=== PATIENT | male | born 1960 | race Hispanic/Latino ===

== ENCOUNTER 2016-11-24 13:19 | Emergency (ER) | payer OTHER ==
[2016-11-24 13:20] VITALS: PULSE 95
[2016-11-24 13:25] VITALS: BMI 42.2
[2016-11-24 13:31] VITALS: BP 157/81; PULSE 106; RESP 18; TEMP 98.7; O2SAT 98
--- NOTE | 2016-11-24 13:55 | ED PDOC ---
Arrival/HPI - General Chief Complaint: Trauma Time Seen by Provider: 11/24/16 13:22 Historian: Patient - History of Present Illness Time/Duration: Prior to Arrival Symptom Onset: Sudden Symptom Course: Improving Severity Level: Mild Associated Symptoms (Text): 11/24/16 13:52 Patient reports that he was at a [employer] and he bent over to package pick up some 4 x 4's and he hit the top of his head on a metal post. There was no loss of consciousness syncope dizziness lightheadedness numbness tingling or paresthesias. No nausea or vomiting. The patient is on Pradaxa and aspirin. He suffered a small abrasion on the top of his head. He insists that he had tetanus immunization at his [facility] office within the last year or 2. He denies any other injury or trauma.. Past Medical History - Infectious Disease Hx of Infectious Diseases: None - Tetanus Immunization Tetanus Immunization: Unknown - Cardiac Hx Cardiac Disorders: Yes Hx Atrial Fibrillation: Yes Hx Congestive Heart Failure: Yes Hx Hypertension: Yes - Pulmonary Hx Respiratory Disorders: Yes Hx Sleep Apnea: Yes - Neurological Hx Neurological Disorder: Yes Other/Comment: tremors - HEENT Hx HEENT Disorder: Yes Other/Comment: glasses - Renal Hx Renal Failure: Yes (ARF 11/2014) - Endocrine/Metabolic Hx Diabetes Mellitus Type 2: Yes - Hematological/Oncological Hx Blood Disorders: No - Integumentary Hx Dermatological Disorder: No Other/Comment: cellulitis on sudhir lower ext. Chronic venous insufficiency ( previous triage) - Musculoskeletal/Rheumatological Hx Falls: No - Gastrointestinal Hx Gastroesophageal Reflux: Yes - Genitourinary/Gynecological Hx Genitourinary Disorders: No - Psychiatric Hx Psychophysiologic Disorder: Yes Hx Anxiety: Yes Hx Substance Use: No - Surgical History Hx Appendectomy: Yes Hx Cardiac Catheterization: Yes (04/2014) Hx Coronary Stent: Yes - Anesthesia Hx Anesthesia: Yes Hx Anesthesia Reactions: No Hx Malignant Hyperthermia: No - Suicidal Assessment Feels Threatened In Home Enviroment: No Family/Social History - Physician Review Nursing Documentation Reviewed: Yes Family/Social History: Unknown Family HX Smoking Status: Former Smoker Hx Alcohol Use: Yes (6 pack beer /daily) Hx Substance Use: No Hx Substance Use Treatment: No Allergies/Home Meds Allergies/Adverse Reactions: Allergies No Known Allergies Allergy (Verified 11/24/16 13:21) Home Medications: Home Meds Medication Instructions Recorded Confirmed ALPRAZolam [Xanax] 1 tab PO BID PRN 09/17/16 11/24/16 Albuterol HFA [Ventolin HFA 90 1 puff IH BID PRN 09/17/16 11/24/16 mcg/actuation (8 g)] Atenolol [Tenormin] 1 tab PO DAILY 09/17/16 11/24/16 Furosemide [Lasix] 1 tab PO BID 09/17/16 11/24/16 Oxycodone HCl/Acetaminophen 1 tab PO Q4H PRN 09/17/16 11/24/16 [Percocet 10-325 mg Tablet] Potassium Chloride [Klor-Con] 1 tab PO DAILY 09/17/16 11/24/16 diltiaZEM CD [Cardizem CD] 1 tab PO DAILY 09/17/16 11/24/16 metOLazone [Zaroxolyn] 1 tab PO 2XW 09/17/16 11/24/16 Review of Systems - Physician Review All systems were reviewed & negative as marked: Yes - Review of Systems Constitutional: absent: Fatigue, Fevers Gastrointestinal: absent: Nausea, Vomiting Neurological: absent: Headache, Dizziness, Focal Weakness, Gait Changes Physical Exam Vital Signs Temp Pulse Resp BP Pulse Ox 11/24/16 13:30 98.7 F 106 H 18 157/81 H 98 Temperature: Afebrile Blood Pressure: Hypertensive Pulse: Regular Respiratory Rate: Normal Appearance: Positive for: Well-Appearing, Non-Toxic, Comfortable Pain Distress: None Mental Status: Positive for: Alert and Oriented X 3 Finger Stick Blood Glucose: 131 - Systems Exam Head: Present: Normocephalic, Abrasion (Superficial abrasion on the top of his scalp). No: Tenderness, Contusion, Swelling, Ecchymosis, Laceration Pupils: Present: PERRL Extroacular Muscles: Present: EOMI Conjunctiva: Present: Normal Ears: Present: NORMAL TM, Normal Canal. No: Erythema Mouth: Present: Moist Mucous Membranes Pharnyx: No: ERYTHEMA, EXUDATE, TONSILS ENLARGED Neck: Present: Normal Range of Motion. No: MIDLINE TENDERNESS, Paraspinal Tenderness Back: Present: Normal Inspection. No: Midline Tenderness, Paraspinal Tenderness Upper Extremity: Present: Normal Inspection. No: Cyanosis, Edema Lower Extremity: Present: Normal Inspection. No: Edema Neurological: Present: GCS=15, Motor Func Grossly Intact, Normal Cerebellar Funct, Gait Normal Skin: Present: Warm, Dry, Normal Color, Abrasion. No: Rashes Psychiatric: Present: Alert, Oriented x 3, Normal Insight, Normal Concentration Medical Decision Making - RAD Interpretation Radiology Orders: 11/24/16 13:31 HEAD W/O CONTRAST [CT] Stat CT scan of the head as read by the radiologist shows no acute findings Director Zone: Radiologist Disposition/Present on Arrival - Present on Arrival Any Indicators Present on Arrival: No History of DVT/PE: No History of Uncontrolled Diabetes: No Urinary Catheter: No History of Decub. Ulcer: No History Surgical Site Infection Following: None - Disposition Have Diagnosis and Disposition been Completed?: Yes Diagnosis: Head contusion, Abrasion Disposition: HOME/ ROUTINE Disposition Time: 14:35 Patient Plan: Discharge Patient Problems: Current Active Problems Problem Status Diagnosed Acute renal failure (ARF) Acute Foot ulcer due to secondary DM Acute Condition: GOOD Discharge Instructions (ExitCare): Abrasion (ED), Head Injury (ED)
--- NOTE | 2016-11-24 14:30 | CT ---
PROCEDURE: CT HEAD WITHOUT CONTRAST. HISTORY: trauma COMPARISON: None available. TECHNIQUE: Axial computed tomography images were obtained through the head/brain without intravenous contrast. Radiation dose: Total exam DLP = 822 mGy-cm. This CT exam was performed using one or more of the following dose reduction techniques: Automated exposure control, adjustment of the mA and/or kV according to patient size, and/or use of iterative reconstruction technique. FINDINGS: HEMORRHAGE: No intracranial hemorrhage. BRAIN: No mass effect or edema. Chronic microvascular changes are seen VENTRICLES: Unremarkable. No hydrocephalus. CALVARIUM: Unremarkable. PARANASAL SINUSES: Unremarkable as visualized. No significant inflammatory changes. MASTOID AIR CELLS: Unremarkable as visualized. No inflammatory changes. OTHER FINDINGS: None. IMPRESSION: No acute intracranial findings
== END 2016-11-24 15:36 | disposition home or self-care (01) ==
LOC: ED 13:19
DX: S00.93XA Contusion of unspecified part of head, initial encounter (principal); W22.09XA Striking against other stationary object, initial encounter; Y93.89 Activity, other specified; Y92.512 Supermarket, store or market as the place of occurrence of the external cause; E11.9 Type 2 diabetes mellitus without complications; I10 Essential (primary) hypertension; Z87.891 Personal history of nicotine dependence

== ENCOUNTER 2016-12-17 01:33 | Inpatient (IN) | payer OTHER ==
[2016-12-17 01:33] VITALS: PULSE 95
--- NOTE | 2016-12-17 02:01 | ED PDOC ---
Arrival/HPI - General Chief Complaint: Shortness Of Breath Time Seen by Provider: 12/17/16 01:37 Historian: Patient - History of Present Illness Narrative History of Present Illness (Text): 12/17/16 01:55 Mark Doan is a 56 year old male, whose past medical history includes diabetes, diabetic neuropathy, paroxysmal atrial fibrillation, CAD, chronic venous stasis, and obstructive sleep apnea, who presents to the emergency department complaining of shortness of breath for 30 minutes prior to arrival. Patient also reports associated chest pain. Patient denies any fever, chills, abdominal pain, nausea, vomiting, diarrhea, urinary symptoms, back pain, neck pain, headache, dizziness, or any other complaints. PMD: Dr. Lien Leiva Time/Duration: 1/2 hour Symptom Onset: Gradual Symptom Course: Unchanged Activities at Onset: Rest, Light Context: Home Past Medical History - Provider Review Nursing Documentation Reviewed: Yes - Infectious Disease Hx of Infectious Diseases: None - Tetanus Immunization Tetanus Immunization: Unknown - Cardiac Hx Cardiac Disorders: Yes Hx Atrial Fibrillation: Yes Hx Congestive Heart Failure: Yes Hx Hypertension: Yes - Pulmonary Hx Respiratory Disorders: Yes Hx Sleep Apnea: Yes - Neurological Hx Neurological Disorder: Yes Other/Comment: tremors - HEENT Hx HEENT Disorder: Yes Other/Comment: glasses - Renal Hx Renal Failure: Yes (ARF 11/2014) - Endocrine/Metabolic Hx Diabetes Mellitus Type 2: Yes - Hematological/Oncological Hx Blood Disorders: No - Integumentary Hx Dermatological Disorder: No Other/Comment: cellulitis on sudhir lower ext. Chronic venous insufficiency ( previous triage) - Musculoskeletal/Rheumatological Hx Falls: No - Gastrointestinal Hx Gastroesophageal Reflux: Yes - Genitourinary/Gynecological Hx Genitourinary Disorders: No - Psychiatric Hx Psychophysiologic Disorder: Yes Hx Anxiety: Yes Hx Substance Use: No - Surgical History Hx Appendectomy: Yes Hx Cardiac Catheterization: Yes (04/2014) Hx Coronary Stent: Yes - Anesthesia Hx Anesthesia: Yes Hx Anesthesia Reactions: No Hx Malignant Hyperthermia: No - Suicidal Assessment Feels Threatened In Home Enviroment: No Family/Social History - Physician Review Nursing Documentation Reviewed: Yes Family/Social History: No Known Family HX Smoking Status: Former Smoker Hx Alcohol Use: Yes (6 pack beer /daily) Hx Substance Use: No Hx Substance Use Treatment: No Allergies/Home Meds Allergies/Adverse Reactions: Allergies No Known Allergies Allergy (Verified 11/24/16 13:21) Home Medications: Home Meds Medication Instructions Recorded Confirmed ALPRAZolam [Xanax] 1 tab PO BID PRN 09/17/16 11/24/16 Albuterol HFA [Ventolin HFA 90 1 puff IH BID PRN 09/17/16 11/24/16 mcg/actuation (8 g)] Atenolol [Tenormin] 1 tab PO DAILY 09/17/16 11/24/16 Furosemide [Lasix] 1 tab PO BID 09/17/16 11/24/16 Oxycodone HCl/Acetaminophen 1 tab PO Q4H PRN 09/17/16 11/24/16 [Percocet 10-325 mg Tablet] Potassium Chloride [Klor-Con] 1 tab PO DAILY 09/17/16 11/24/16 diltiaZEM CD [Cardizem CD] 1 tab PO DAILY 09/17/16 11/24/16 metOLazone [Zaroxolyn] 1 tab PO 2XW 09/17/16 11/24/16 Review of Systems - Physician Review All systems were reviewed & negative as marked: Yes - Review of Systems Constitutional: Normal. absent: Fevers Eyes: Normal ENT: Normal Respiratory: SOB Cardiovascular: Chest Pain Gastrointestinal: Normal. absent: Abdominal Pain, Diarrhea, Nausea, Vomiting Genitourinary Male: Normal. absent: Dysuria, Frequency, Hematuria, Urinary Output Changes Musculoskeletal: Normal. absent: Back Pain, Neck Pain Skin: Normal. absent: Rash Neurological: Normal. absent: Headache, Dizziness Endocrine: Normal Hemo/Lymphatic: Normal Psychiatric: Normal Physical Exam Vital Signs Reviewed: Yes Vital Signs Temp Pulse Resp BP Pulse Ox 12/17/16 04:38 108 H 26 H 134/59 L 100 12/17/16 04:12 118 H 26 H 128/91 H 100 12/17/16 02:55 96 H 22 125/72 100 12/17/16 01:56 22 100 12/17/16 01:48 97.8 F 134 H 22 149/46 L 80 L Temperature: Afebrile Blood Pressure: Normal Pulse: Regular Respiratory Rate: Normal Appearance: Positive for: Well-Appearing, Non-Toxic, Comfortable Pain Distress: None Mental Status: Positive for: Alert and Oriented X 3 - Systems Exam Head: Present: Atraumatic, Normocephalic Pupils: Present: PERRL Extroacular Muscles: Present: EOMI Conjunctiva: Present: Normal Mouth: Present: Moist Mucous Membranes Neck: Present: Normal Range of Motion Respiratory/Chest: Present: Wheezes. No: Respiratory Distress, Accessory Muscle Use Cardiovascular: Present: Regular Rate and Rhythm, Normal S1, S2. No: Murmurs Abdomen: Present: Normal Bowel Sounds. No: Tenderness, Distention, Peritoneal Signs Back: Present: Normal Inspection Upper Extremity: Present: Normal Inspection. No: Cyanosis, Edema Lower Extremity: Present: Normal Inspection. No: Edema Neurological: Present: GCS=15, CN II-XII Intact, Speech Normal Skin: Present: Warm, Dry, Normal Color. No: Rashes Psychiatric: Present: Alert, Oriented x 3, Normal Insight, Normal Concentration Medical Decision Making ED Course and Treatment: 12/17/16 01:55 Impression: 56 year old male complaining of shortness of breath and chest pain for 30 minutes VP PRODUCT. Plan: -- EKG -- CXR -- Labs, cardiac enzymes, BNP, VBG, blood cultures -- UA -- Duoneb -- Reassess and disposition Prior Visits: Notes and results from previous visits were reviewed. Progress Notes: Reviewed EKG, a fib at [address] bpm[address] Non-specific ST/T wave changes. 12/17/16 03:40 Reviewed radiology, CXR shows CHF. 12/17/16 03:[address] Leiva, who is aware and agrees with plan. Accepts pt in to his service. Discussed results and hospital observation plan with pt, who is aware and verbalizes understanding. 12/17/16 03:54 Lovenox and Cardizem ordered. Case discussed with Dr. Hickey, who is aware and agrees to evaluate pt for possible ICU admission. 12/17/16 04:[address] Hickey, present in emergency department to evaluate pt. States can go to ICU. Pt will be admitted to the ICU for CHF and COPD. CTA Chest ordered. 12/17/16 05:00 CTA Chest shows: No acute findings. Suboptimal evaluation of the pulmonary artery as above. - Lab Interpretations Microbiology Results: Microbiology Results 12/17/16 02:33 Blood-Venous Blood Culture - Preliminary NO GROWTH AFTER 48 HOURS 12/17/16 02:03 Blood-Venous Blood Culture - Preliminary NO GROWTH AFTER 48 HOURS Lab Results: 12/17/16 02:03 12/17/16 02:03 Lab Results 12/17/16 02:35: pO2 51, VBG pH 7.25 L, VBG pCO2 72.0 H*, VBG HCO3 31.6 H, VBG Total CO2 33.8 H, VBG O2 Sat (Calc) 84.3 H, VBG Base Excess 2.2 H, VBG Potassium 3.3 L, Glucose 113 H, Lactate 2.2 H, FiO2 21.0, Sodium 131.0 L, Chloride 93.0 L, Venous Blood Potassium 3.3 L 12/17/16 02:03: Sodium 133, Potassium 3.3 L, Chloride 89 L, Carbon Dioxide 29, Anion Gap 18, BUN 18, Creatinine 1.0, Est GFR ( Amer) > 60, Est GFR (Non- Af Amer) > 60, Random Glucose 111 H, Calcium 9.0, Total Bilirubin 0.9, AST 71 H , ALT 45, Alkaline Phosphatase 91, Lactate Dehydrogenase 553, Total Creatine Kinase 117, Troponin I < 0.01, NT-Pro-B Natriuret Pep 979 H, Total Protein 9.7 H , Albumin 4.8, Globulin 4.9, Albumin/Globulin Ratio 1.0 L 12/17/16 02:03: WBC 11.7 H D, RBC 4.11, Hgb 12.7 L, Hct 37.6 L, MCV 91.5, MCH 30.9, MCHC 33.8, RDW 16.5 H, Plt Count 288, MPV 9.3, Gran % 79.4 H, Lymph % ( Auto) 9.9 L, [place] % (Auto) 8.3 H, Eos % (Auto) 1.9, Baso % (Auto) 0.5, Gran # 9.26 H, Lymph # 1.2, [place] # 1.0 H, Eos # 0.2, Baso # 0.06 I have reviewed the lab results: Yes - RAD Interpretation Narrative RAD Interpretations (Text): CTA Chest shows: Pulmonary arteries: Suboptimal enhancement of the pulmonary artery limits evaluation for PE. Although no definite PE is present, if clinical suspicion is high for PE VQ scan is recommended Aorta: No acute findings. No thoracic aortic aneurysm. Lungs: Unremarkable. No mass. No consolidation. Pleural space: Unremarkable. No significant effusion. No pneumothorax. Heart: Coronary artery calcifications are noted. No significant pericardial effusion. No evidence of RV dysfunction. Bones/joints: No acute fracture. No dislocation. Soft tissues: Unremarkable. Lymph nodes: Small nonspecific mediastinal lymph nodes are present. IMPRESSION: No acute findings. Suboptimal evaluation of the pulmonary artery as above. Radiology Orders: 12/17/16 01:57 CHEST PORTABLE [RAD] Stat Gum Puller: ED Physician, Radiologist - EKG Interpretation Interpreted by ED Physician: Yes Type: 12 lead EKG - Medication Orders Current Medication Orders: Acetaminophen (Tylenol 325mg Tab) 650 mg PO Q6H PRN PRN Reason: Pain, Mild (1-3) Alprazolam (Xanax) 1 mg PO BID COUNT INCLUDES THE [facility] PRN Reason: Protocol Last Admin: 12/19/16 17:50 Dose: 1 mg Aspirin (Aspirin Chewable) 81 mg PO DAILY COUNT INCLUDES THE [facility] Last Admin: 12/19/16 11:01 Dose: 81 mg Atorvastatin Calcium (Lipitor) 80 mg PO DIN COUNT INCLUDES THE [facility] Last Admin: 12/19/16 17:48 Dose: 80 mg Dabigatran (Pradaxa) 150 mg PO BID COUNT INCLUDES THE [facility] PRN Reason: Protocol Last Admin: 12/19/16 17:48 Dose: 150 mg Diltiazem HCl (Cardizem Cd) 240 mg PO DAILY COUNT INCLUDES THE [facility] Last Admin: 12/19/16 11:02 Dose: 240 mg Furosemide (Lasix) 40 mg IVP DAILY COUNT INCLUDES THE [facility] Last Admin: 12/19/16 11:03 Dose: 40 mg Insulin Human Lispro (Humalog Low) 0 units SC ACHS COUNT INCLUDES THE [facility] PRN Reason: Protocol Last Admin: 12/19/16 16:50 Dose: 2 units Ipratropium Craig (Atrovent) 0.5 mg IH Q2H PRN PRN Reason: Shortness of Breath Last Admin: 12/17/16 14:25 Dose: 0.5 mg Ipratropium Craig (Atrovent) 0.5 mg IH 0800,1200,1600,2000 COUNT INCLUDES THE [facility] Last Admin: 12/19/16 20:00 Dose: 0.5 mg Lactic Acid (Lac-Hydrin 12% Cream (140 G)) 0 ea TOP DAILY COUNT INCLUDES THE [facility] Levalbuterol HCl (Xopenex) 1.25 mg IH Q2H PRN PRN Reason: Shortness of Breath Last Admin: 12/18/16 19:35 Dose: 1.25 mg Levalbuterol HCl (Xopenex) 1.25 mg IH 0800,1200,1600,2000 COUNT INCLUDES THE [facility] Last Admin: 12/19/16 20:00 Dose: 1.25 mg Methylprednisolone (Solu-Medrol) 40 mg IVP Q8 COUNT INCLUDES THE [facility] Last Admin: 12/19/16 15:35 Dose: 40 mg Metoprolol Tartrate (Lopressor) 25 mg PO BID COUNT INCLUDES THE [facility] Last Admin: 12/19/16 17:48 Dose: 25 mg Morphine Sulfate (Morphine) 2 mg IVP Q4H PRN PRN Reason: Pain, severe (8-10) Last Admin: 12/17/16 08:19 Dose: 2 mg Re-Assess: [facility] Pain Assessment Document 12/17/16 09:19 EDINSON (Rec: 12/17/16 17:33 EDINSON [id number]) Pain Reassessment Is this a pain reassessment? Yes Sleep Is patient sleeping during reassessment? No Presence of Pain Presence of Pain No Ondansetron HCl (Zofran Inj) 4 mg IVP Q6H PRN PRN Reason: Nausea/Vomiting Oxycodone/Acetaminophen (Percocet 10/325 Mg Tab) 1 tab PO Q4H PRN PRN Reason: Pain, moderate (4-7) Last Admin: 12/19/16 08:22 Dose: 1 tab Re-Assess: [facility] Pain Assessment Document 12/19/16 09:22 CLA (Rec: 12/19/16 17:47 CLA [id number]) Pain Reassessment Is this a pain reassessment? Yes Sleep Is patient sleeping during reassessment? Yes Pantoprazole Sodium (Protonix Ec Tab) 40 mg PO ACB COUNT INCLUDES THE [facility] Last Admin: 12/19/16 08:22 Dose: 40 mg Potassium Chloride (Klor-Con 10) 10 meq PO DAILY COUNT INCLUDES THE [facility] Last Admin: 12/19/16 11:03 Dose: 10 meq Discontinued Medications Albuterol/Ipratropium (Duoneb 3 Mg/0.5 Mg (3 Ml) Ud) 3 ml IH Q15M COUNT INCLUDES THE [facility] Stop: 12/17/16 02:31 Last Admin: 12/17/16 03:03 Dose: 3 ml Alprazolam (Xanax) 1 mg PO STAT STA PRN Reason: Protocol Stop: 12/17/16 21:23 Last Admin: 12/17/16 22:13 Dose: 1 mg Re-Assess: Reassess Psych Meds Document 12/17/16 23:13 PD (Rec: 12/18/16 05:26 PD [id number]) Reassess Psych Med Effective Dabigatran (Pradaxa) 150 mg PO BID SHAHEED PRN Reason: Protocol Diltiazem HCl (Cardizem) 20 mg IVP STAT STA Stop: 12/17/16 04:23 Last Admin: 12/17/16 04:33 Dose: 20 mg Diltiazem HCl (Cardizem Cd) 180 mg PO DAILY SHAHEED Last Admin: 12/18/16 09:33 Dose: 180 mg Enoxaparin Sodium (Lovenox) 147 mg SC STAT STA PRN Reason: Protocol Stop: 12/17/16 03:56 Last Admin: 12/17/16 04:10 Dose: 147 mg Furosemide (Lasix) 40 mg IVP ONCE ONE Stop: 12/17/16 03:20 Last Admin: 12/17/16 03:31 Dose: 40 mg diltiaZEM IVPB 100mg in NS (Cardizem 100mg In Ns) 100 mls @ 5 mls/hr IV .Q20H PRN; Protocol; 5 MG/HR PRN Reason: TITRATE PER MD ORDER Stop: 12/17/16 11:00 Last Admin: 12/17/16 04:35 Dose: 5 mls/hr Levofloxacin/Dextrose (Levaquin 750mg) 750 mg in 150 mls @ 100 mls/hr IVPB DAILY COUNT INCLUDES THE [facility] Last Admin: 12/17/16 14:05 Dose: Potassium Chloride (Potassium Chloride 20 Meq/100 Ml) 20 meq in 100 mls @ 50 mls/hr IVPB Q2H SHAHEED Stop: 12/17/16 11:59 Last Admin: 12/17/16 14:03 Dose: 50 mls/hr Iodixanol (Visipaque 320 Mg/Ml 100 Ml) Confirm Administered Dose 100 ml IV .STK- MED ONE Stop: 12/17/16 04:56 Ipratropium Craig (Atrovent) 0.5 mg IH Q4H SHAHEED Last Admin: 12/19/16 07:28 Dose: 0.5 mg Levalbuterol HCl (Xopenex) 1.25 mg IH Q4H SHAHEED Last Admin: 12/19/16 07:29 Dose: 1.25 mg Methylprednisolone (Solu-Medrol) 125 mg IVP ONCE ONE Stop: 12/17/16 03:53 Last Admin: 12/17/16 03:58 Dose: 125 mg Morphine Sulfate (Morphine) 2 mg IVP STAT STA Stop: 12/17/16 03:27 Last Admin: 12/17/16 03:30 Dose: 2 mg Re-Assess: [facility] Pain Assessment Document 12/17/16 04:30 YP (Rec: 12/17/16 04:36 YP [id number]) Pain Reassessment Is this a pain reassessment? Yes Sleep Is patient sleeping during reassessment? No Presence of Pain Presence of Pain No Oxycodone/Acetaminophen (Percocet 10/325 Mg Tab) 1 tab PO STAT STA Stop: 12/17/16 21:23 Last Admin: 12/17/16 22:13 Dose: 1 tab Re-Assess: [facility] Pain Assessment Document 12/17/16 23:13 PD (Rec: 12/18/16 05:27 PD [id number]) Pain Reassessment Is this a pain reassessment? Yes Sleep Is patient sleeping during reassessment? Yes Pantoprazole Sodium (Protonix Inj) 40 mg IVP DAILY SHAHEED Last Admin: 12/18/16 09:34 Dose: 40 mg Potassium Chloride (K-Dur 20 Meq Er Tab) 40 meq PO STAT STA Stop: 12/17/16 03:42 Last Admin: 12/17/16 03:57 Dose: 40 meq Potassium Chloride (Potassium Chloride Oral Soln) 40 meq PO ONCE ONE Stop: 12/17/16 08:02 Last Admin: 12/17/16 08:28 Dose: 40 meq - [place] Statement The provider has reviewed the documentation as recorded by the Radha Waller Provider Attestation: All medical record entries made by the Radha were at my direction and personally dictated by me. I have reviewed the chart and agree that the record accurately reflects my personal performance of the history, physical exam, medical decision making, and the department course for this patient. I have also personally directed, reviewed, and agree with the discharge instructions and disposition. Disposition/Present on Arrival - Present on Arrival Any Indicators Present on Arrival: No History of DVT/PE: No History of Uncontrolled Diabetes: No Urinary Catheter: No History of Decub. Ulcer: No History Surgical Site Infection Following: None - Disposition Have Diagnosis and Disposition been Completed?: Yes Diagnosis: CHF (congestive heart failure), Rapid atrial fibrillation Disposition: HOSPITALIZED Disposition Time: 04:25 Condition: FAIR
[2016-12-17] MEDS: Albuterol-Ipratrop 3 mg / 0.5 (3 ml) UD IH SCH ×3 (02:33→03:03)
[2016-12-17 02:43] LABS: ADD MANUAL DIFF? NO
[2016-12-17 02:46] LABS: VENOUS BLOOD GAS BASE EXCESS 2.2 mmol/L (0.0-2.0); VENOUS BLOOD PH 7.25 (7.32-7.43)
[2016-12-17 02:53] LABS: BASO # 0.06 K/mm3 (0.0-2.0); BASO % 0.5 % (0.0-3.0); EOS # 0.2 (0.0-0.7); EOS % 1.9 % (1.5-5.0); GRAN # 9.26 (1.4-6.5); GRAN % 79.4 % (50.0-68.0); HEMATOCRIT 37.6 % (42.0-52.0); LYMPH # 1.2 (1.2-3.4); LYMPH % 9.9 % (22.0-35.0); MEAN CELL VOLUME 91.5 fL (80.0-105.0); MEAN CORPUSCULAR HEMOGLOBIN 30.9 pg (25.0-35.0); MEAN CORPUSCULAR HGB CONC 33.8 g/dl (31.0-37.0); MEAN PLATELET VOLUME 9.3 fl (7.0-11.0); MONO % 8.3 % (1.0-6.0); PLATELET COUNT 288 10^3/uL (120.0-450.0); RED CELL DISTRIBUTION WIDTH 16.5 % (11.5-14.5)
[2016-12-17 02:56] LABS: ALKALINE PHOSPHATASE 91 U/L (38-133); ALT/SGPT 45 U/L (7-56); AST/SGOT 71 U/L (15-59); BILIRUBIN,TOTAL 0.9 mg/dL (0.2-1.3); BLOOD UREA NITROGEN 18 mg/dL (7-21); CARBON DIOXIDE 29 mmol/L (21-33); GFR AFRICAN-AMERICAN > 60; GLUCOSE,RANDOM 111 mg/dL (70-110); POTASSIUM 3.3 mmol/L (3.6-5.0); SODIUM 133 mmol/L (132-148); TOTAL PROTEIN 9.7 g/dL (5.8-8.3); WHITE BLOOD COUNT 11.7 10^3/ul (4.5-11.0)
[2016-12-17 03:02] LABS: CHLORIDE 89 mmol/L (98-107)
[2016-12-17 03:10] LABS: TROPONIN I < 0.01 ng/mL
[2016-12-17] MEDS ORDERED: Morphine 2 mg/ml ISec IVP STA (03:26)
[2016-12-17] MEDS ORDERED: Potassium Chloride 20 mEq ER Tab PO STA (03:41)
[2016-12-17] MEDS ORDERED: Enoxaparin 150 mg Syringe SC STA (03:55)
[2016-12-17] MEDS ORDERED: diltiaZEM IVPB 100mg in NS 100 ML IV PRN (04:21)
[2016-12-17] MEDS ORDERED: Morphine 2 mg/ml ISec IVP PRN (04:28)
[2016-12-17] MEDS ORDERED: Levalbuterol 1.25 MG/3 ML Inhal Soln UD IH PRN (04:40)
[2016-12-17] MEDS ORDERED: Ipratropium 0.02% Inhal Soln (0.5 mg/2.5 ml) UD IH PRN (04:40)
[2016-12-17] MEDS ORDERED: Iodixanol 320 MG/ML 100 ML BOTTLE IV ONE (04:55)
--- NOTE | 2016-12-17 04:55 | CP.PCM.CON ---
History of Present Illness - History of Present Illness History of Present Illness: The patient is a 56 year old, morbidly obese, man with a history of NIDDM, paroxysmal atrial fibrillation (on Pradaxa), non-obstructive coronary artery disease, chronic venous stasis ulcers, HTN, COPD and JOSELINE, who presents with acute, constant, non-radiating, pressure-like, substernal chest pain which began yesterday afternoon. He reports associated SOB and diaphoresis but denies any exertional component to the chest pain. He also reports 1 day of worsening SOB/WALTERS. He denies any recent changes in his baseline 2-pillow orthopnea or any PND. He also denies F/C or cough. He does report increased bilateral leg edema. He also reports compliance with all of his home meds. In the ED, initially, his O2 sat was 80% on room air and he was uncomfortable and somewhat confused appearing. As a result, Bipap was initiated. Also, in the ED, he was found to be in A-fib with RVR (HC=864d). Consequently, because of his numerous acute medical issues, he will be monitored closely overnight in the ICU. Review of Systems - Review of Systems All systems: reviewed and no additional remarkable complaints except - Constitutional Constitutional: As Per HPI - EENT Eyes: As Per HPI Nose/Mouth/Throat: As Per HPI - Cardiovascular Cardiovascular: As Per HPI - Respiratory Respiratory: As Per HPI - Gastrointestinal Gastrointestinal: As Per HPI - Musculoskeletal Musculoskeletal: As Per HPI - Neurological Neurological: As Per HPI Past Patient History - Infectious Disease Hx of Infectious Diseases: None - Tetanus Immunizations Tetanus Immunization: Unknown - Past Social History Smoking Status: Former Smoker - CARDIAC Hx Cardiac Disorders: Yes Hx Atrial Fibrillation: Yes Hx Congestive Heart Failure: Yes Hx Hypertension: Yes - PULMONARY Hx Respiratory Disorders: Yes Hx Sleep Apnea: Yes - NEUROLOGICAL Hx Neurological Disorder: Yes Other/Comment: tremors - HEENT Hx HEENT Problems: Yes Other/Comment: glasses - RENAL Hx Renal Failure: Yes (ARF 11/2014) - ENDOCRINE/METABOLIC Hx Diabetes Mellitus Type 2: Yes - HEMATOLOGICAL/ONCOLOGICAL Hx Blood Disorders: No - INTEGUMENTARY Hx Dermatological Problems: No Other/Comment: cellulitis on sudhir lower ext. Chronic venous insufficiency ( previous triage) - MUSCULOSKELETAL/RHEUMATOLOGICAL Hx Falls: No - GASTROINTESTINAL Hx Gastroesophageal Reflux: Yes - GENITOURINARY/GYNECOLOGICAL Hx Genitourinary Disorders: No - PSYCHIATRIC Hx Psychophysiologic Disorder: Yes Hx Anxiety: Yes Hx Substance Use: No - SURGICAL HISTORY Hx Appendectomy: Yes Hx Cardiac Catheterization: Yes (04/2014) Hx Coronary Stent: Yes - ANESTHESIA Hx Anesthesia: Yes Hx Anesthesia Reactions: No Hx Malignant Hyperthermia: No Meds Allergies/Adverse Reactions: Allergies Allergy/AdvReac Type Severity Reaction Status Date / Time No Known Allergies Allergy Verified 11/24/16 13:21 - Medications Medications: Current Medications Acetaminophen (Tylenol 325mg Tab) 650 mg PO Q6H PRN PRN Reason: Pain, Mild (1-3) Aspirin (Aspirin Chewable) 81 mg PO DAILY [facility] Atorvastatin Calcium (Lipitor) 80 mg PO DIN [facility] Dabigatran (Pradaxa) 150 mg PO BID [facility] PRN Reason: Protocol diltiaZEM IVPB 100mg in NS (Cardizem 100mg In Ns) 100 mls @ 5 mls/hr IV .Q20H PRN; Protocol; 5 MG/HR PRN Reason: TITRATE PER MD ORDER Last Admin: 12/17/16 04:35 Dose: 5 mls/hr Levofloxacin/Dextrose (Levaquin 750mg) 750 mg in 150 mls @ 100 mls/hr IVPB DAILY [facility] Insulin Human Lispro (Humalog Low) 0 units SC ACHS [facility] PRN Reason: Protocol Ipratropium [place] (Atrovent) 0.5 mg IH Q4H SHAHEED Ipratropium [place] (Atrovent) 0.5 mg IH Q2H PRN PRN Reason: Shortness of Breath Levalbuterol HCl (Xopenex) 1.25 mg IH Q4H [facility] Levalbuterol HCl (Xopenex) 1.25 mg IH Q2H PRN PRN Reason: Shortness of Breath Methylprednisolone (Solu-Medrol) 40 mg IVP Q8H [facility] Morphine Sulfate (Morphine) 2 mg IVP Q4H PRN PRN Reason: Pain, severe (8-10) Ondansetron HCl (Zofran Inj) 4 mg IVP Q6H PRN PRN Reason: Nausea/Vomiting Pantoprazole Sodium (Protonix Inj) 40 mg IVP DAILY [facility] Physical Exam - Constitutional Additional comments: In obvious discomfort due to chest pain and SOB - Head Exam Head Exam: ATRAUMATIC, NORMAL INSPECTION, NORMOCEPHALIC - Eye Exam Eye Exam: EOMI, Normal appearance, PERRL - ENT Exam ENT Exam: Mucous Membranes Dry - Neck Exam Neck exam: Positive for: Full Rom, Normal Inspection - Respiratory Exam Additional comments: Bibasilar crackles; Faint bilateral upper lobe expiratory wheezes; No accessory muscle use - Cardiovascular Exam Cardiovascular Exam: Tachycardia, Irregular Rhythm, +S1, +S2 Additional comments: Unable to assess for prolonged JVD due to body habitus - GI/Abdominal Exam Additional comments: Morbidly obese, soft, non-distended, non-tender - Rectal Exam Rectal Exam: Deferred - Extremities Exam Additional comments: 2+ bilateral lower extremity pitting edema up to the knees; Patient also wearing bilateral leg squeezers - Neurological Exam Additional comments: Grossly normal neurological exam - Psychiatric Exam Psychiatric exam: Anxious - Skin Skin Exam: Diaphoretic Results - Vital Signs Recent Vital Signs: Last Vital Signs Temp 97.8 F 12/17/16 01:48 Pulse 108 H 12/17/16 04:38 Resp 26 H 12/17/16 04:38 BP 134/59 L 12/17/16 04:38 Pulse Ox 100 12/17/16 04:38 - Labs Result Diagrams: 12/17/16 05:50 12/17/16 05:50 - Imaging and Cardiology Chest x-ray Status: Image reviewed by me Assessment & Plan - Assessment and Plan (Free Text) Plan: A/P: The patient is a 56 year old, morbidly obese, man with a history of NIDDM, paroxysmal atrial fibrillation (on Pradaxa), non-obstructive coronary artery disease, chronic venous stasis ulcers, HTN, COPD and JOSELINE, who will be admitted to the ICU overnight for management of atrial fibrillation with RVR, chest pain and acute respiratory distress due to a combination of both CHF and COPD exacerbations. 1. Acute CHF Exacerbation: -previous echo from 2014 shows extensive right failure -Lasix 40mg IV Q12hrs -monitor strict I/Os and daily weights -keep HOB>30 degrees -cards consult placed -2D-echo ordered -heart healthy (low sodium) diet 2. Acute COPD Exacerbation: -Duo-nebs ATC and PRN -will use Xopanex instead of Albuterol to minimize tachycardia -Solumedrol 40mg IV q8hrs -prophylactic IV Levaquin -Bipap therapy -check ABG with next lab draw -CT-PA negative for acute PE 3. Chest Pain (rule out ACS): -ASA 81mg po daily -Lipitor 80mg po qhs -monitor serial trops and EKGs -NTG SL 0.5mg x 3 doses PRN CP -Morphine IV PRN pain -2D-echo to evaluate for acute wall motion abnormalities -cardiology consult placed -check HgA1c, Lipids and TSH 4. Atrial Fibrillation with Rapid Ventricular Response: -will start Diltiazem drip for rate control -continue home BID dose of Pradaxa for stroke prophylaxis (first dose to be started this evening since pt was given 1 therapeutic dose of Lovenox by the ED) 5. Obstructive Sleep Apnea: -CPAP nightly -encouraged weight loss and a low-fat and low-carb diet 6. Non-Insulin Dependent Diabetes Mellitus: -hold all oral hypoglycemic meds in-house -instead will use low-dose Lispro Insulin sliding scale -check HgA1c with AM labs GI PPx: Protonix DVT PPx: SCDs and Pradaxa
[2016-12-17 05:02] LABS: ARTERIAL BLOOD GAS HCO3 29.2 mmol/L (21-28); ARTERIAL BLOOD GAS O2 CAPACITY 16.6 mL/dl (16-24); ARTERIAL BLOOD GAS O2 CONTENT 16.1 ML/dl (15-23); ARTERIAL BLOOD GAS PH 7.44 (7.35-7.45); ARTERIAL BLOOD HGB O2 SAT 93.6 % (95.0-98.0); CARBOXYHEMOGLOBIN 2.5 % (0.5-1.5); HHB 2.9 % (0-5); METHEMOGLOBIN 0.9 % (0.0-3.0)
[2016-12-17 06:12] VITALS: BMI 46.2
[2016-12-17 06:25] LABS: HEMATOCRIT 34.9 % (42.0-52.0); MEAN CELL VOLUME 90.6 fL (80.0-105.0); MEAN CORPUSCULAR HEMOGLOBIN 30.1 pg (25.0-35.0); MEAN CORPUSCULAR HGB CONC 33.2 g/dl (31.0-37.0); PLATELET COUNT 267 10^3/uL (120.0-450.0); RED CELL DISTRIBUTION WIDTH 16.4 % (11.5-14.5); WHITE BLOOD COUNT 13.1 10^3/ul (4.5-11.0)
[2016-12-17 06:36] LABS: ADD MANUAL DIFF? YES
[2016-12-17 06:44] LABS: VENOUS BLOOD GAS BASE EXCESS 5.3 mmol/L (0.0-2.0); VENOUS BLOOD PH 7.43 (7.32-7.43)
[2016-12-17 06:45] LABS: ALB/GLOB RATIO 0.9 (1.1-1.8); ALKALINE PHOSPHATASE 91 U/L (38-133); ALT/SGPT 45 U/L (7-56); AST/SGOT 50 U/L (15-59); BILIRUBIN,TOTAL 1.4 mg/dL (0.2-1.3); BLOOD UREA NITROGEN 18 mg/dL (7-21); CALCIUM 8.5 mg/dL (8.4-10.5); CARBON DIOXIDE 29 mmol/L (21-33); CHLORIDE 88 mmol/L (98-107); CHOLESTEROL 144 mg/dL (130-200); GFR AFRICAN-AMERICAN > 60; GLUCOSE,RANDOM 167 mg/dL (70-110); MAGNESIUM 1.9 mg/dL (1.7-2.2); PHOSPHOROUS 3.4 mg/dL (2.5-4.5); POTASSIUM 3.1 mmol/L (3.6-5.0); SODIUM 130 mmol/L (132-148); TOTAL PROTEIN 8.8 g/dL (5.8-8.3)
[2016-12-17 07:00] LABS: ANISOCYTOSIS 1+; BAND 6 % (0-2); NEUTROPHIL 90 % (50.0-70.0); PLATELET ESTIMATE NORMAL (NORMAL); POLYCHROMASIA SLIGHT
[2016-12-17 07:17] LABS: TROPONIN I < 0.01 ng/mL
[2016-12-17] MEDS: Ipratropium 0.02% Inhal Soln (0.5 mg/2.5 ml) UD IH SCH ×3 (08:00→20:45)
[2016-12-17] MEDS ORDERED: Potassium Chloride 40 mEq/30 ml LIQ UD PO ONE (08:01)
[2016-12-17] MEDS: Levalbuterol 1.25 MG/3 ML Inhal Soln UD IH SCH ×3 (08:01→20:45)
[2016-12-17] MEDS: levoFLOXacin 750 mg in D5W 750 MG/150 ML BAG IVPB SCH ×2 (08:26→14:05)
[2016-12-17] MEDS: Potassium Chloride 10 mEq ER Tab PO SCH ×2 (08:28→10:38)
[2016-12-17] MEDS: Insulin Lispro (humaLOG) LOW Coverage SC SCH ×4 (08:28→22:10)
--- NOTE | 2016-12-17 09:42 | RAD ---
HISTORY: sob COMPARISON: 12/15/2015 FINDINGS: LUNGS: No active pulmonary disease. PLEURA: No significant pleural effusion identified, no pneumothorax apparent. CARDIOVASCULAR: Moderate cardiomegaly OSSEOUS STRUCTURES: No significant abnormalities. VISUALIZED UPPER ABDOMEN: Normal. OTHER FINDINGS: None. IMPRESSION: No active disease.
--- NOTE | 2016-12-17 09:45 | CON ---
DATE: 12/17/2016 REASON FOR CONSULTATION AND FOLLOWUP: Chest pain, chronic atrial fibrillation, morbid obesity, nonob structive coronary artery disease. BRIEF CLINICAL HISTORY: This is a 56-year-old morbidly obese male with past medical history of COPD, diabetes, hypertension, hyperlipidemia, atrial fibrillation, chronic, chronic venous stasis, obstruc tive sleep apnea, noncompliance with the medication. Came in here with sharp chest pain under the ri b and very hard when he takes a deep breath, it hurts, and shortness of breath, AFib with rapid ventr icular rate. Now says chest pain significantly improved. The patient had a CT angio done last night that unofficially mentioned that the patient has no evidence of pulmonary embolism. Currently, torie ent is in ICU 129, bed 2. Chest pain significantly decreased from before on admission. 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 PREVIOUS CARDIAC WORKUP: The patient had echocardiography 03/01/2015 that showed left ventricle size is normal, concentric LVH, left ventricular function 50%-55% ejection fraction, right ventricle sever kenny dilated, RV systolic function is decreased, severely reduced, trace to mild mitral regurgitation, mild to moderate tricuspid regurgitation, RV systolic pressure 42, mild pulmonary insufficiency. The patient had cardiac catheterization 05/12/2014 that shows nonobstructive coronary artery disease, ejection fraction 65%, distal LAD diffusely diseased, but no focal flow-limiting stenosis noted. PERSONAL HISTORY: History of alcohol abuse, history of tobacco abuse. ALLERGIES: No known drug allergy. CURRENT MEDICATIONS: The patient is taking Januvia 100 mg, losartan 100 mg, Cardizem-CD 240 mg chavez ed to 180, Pradaxa 150 b.i.d., atenolol 25 mg daily, Xanax 1 mg daily. REVIEW OF SYSTEMS: As per HPI. PHYSICAL EXAMINATION: VITAL SIGNS: Temperature afebrile, heart rate 110, blood pressure 130/80. HEENT: PERRLA. Extraocular muscles intact. NECK: Supple. No carotid bruits. No thyromegaly. CHEST: Clear to auscultation. HEART: S1, S2 regular. ABDOMEN: Soft. EXTREMITIES: Clubbing, cyanosis negative. BLOOD WORKUP: WBC 13. , hemoglobin 11. , hematocrit 34.9, platelet count 267. Chemistry jayesh ws sodium 130, potassium 3.1, chloride 88, carbon dioxide 20, anion gap of 18, BUN 16, creatinine 0.9 . Troponin 0.01, negative. IMPRESSION: Morbid obesity, body mass index increased to 46.2 kg, height of the patient 6 feet 4 inc hes, 6 feet, weight of the patient 341 pounds, history of chronic obstructive pulmonary disease, hist ory of obstructive sleep apnea, history of chronic atrial fibrillation, noncompliance with the medica tion, no evidence of pulmonary embolism, no evidence of acute myocardial infarction, history of cardi ac catheterization 04/2014, nonobstructive coronary artery disease, distal left anterior descending di ffusely diseased, no focal stenosis, preserved left ventricular function, right heart failure, right ventricular dysfunction, pulmonary hypertension, obstructive sleep apnea, atypical chest pain. RECOMMENDATION: Follow up serial CPK. If serial CPK remains flat, we will transfer patient to [facility]. Continue deep venous thrombosis prophylaxis. Continue aggressive treatment for obstructive sl eep apnea and chronic obstructive pulmonary disease. Continue diuretics, continue Cardizem. We will follow with you. We will repeat if not recent echo was done. We will follow with you. Thank you, Dr. Leiva, for providing us the opportunity in taking care of the patient. Also, will get lipid profile, TSH, hemoglobin A1c. Jalen Vargas MD cc: [id number] TT: 12/17/2016 09:44:53 Confirmation # [id number] Dictation # [id number]
[2016-12-17 10:56] LABS: TROPONIN I < 0.01 ng/mL
--- NOTE | 2016-12-17 11:02 | CT ---
PROCEDURE: CT Chest with contrast (Pulmonary Angiogram) HISTORY: sob COMPARISON: None available. TECHNIQUE: Axial computed tomography images were obtained of the chest in the pulmonary arterial phase of enhancement. Coronal and sagittal reformatted images were created and reviewed. Intravenous contrast dose: 100 cc of Visipaque Radiation dose: Total exam DLP = 744 mGy-cm. This CT exam was performed using one or more of the following dose reduction techniques: Automated exposure control, adjustment of the mA and/or kV according to patient size, and/or use of iterative reconstruction technique. FINDINGS: PULMONARY ARTERIES: Unremarkable. No pulmonary embolism. AORTA: No acute findings. No thoracic aortic aneurysm. LUNGS: Unremarkable. No nodule, mass or pulmonary consolidation. PLEURAL SPACES: Unremarkable. No effusion or pneuomothorax. HEART: Unremarkable. No cardiomegaly. No significant pericardial effusion. LYMPH NODES: No lymphadenopathy. BONES, CHEST WALL: Unremarkable. No fracture or destructive lesion OTHER FINDINGS: The report concurs with the preliminary [facility] report IMPRESSION: Unremarkable CT pulmonary angiogram. No pulmonary embolus.
[2016-12-17] MEDS: diltiaZEM 180 mg/24 Hours CD Cap PO SCH (11:59)
--- NOTE | 2016-12-17 13:05 | HP ---
HISTORY OF PRESENT ILLNESS: The patient is a 56-year-old male with a history of nonobstructive coron carlos artery disease, status post recent cardiac catheterization by Dr. Vargas, who presents to the [facility] with precordial chest pain, which was nonradiating. There was no nausea, vomiting, n o diaphoresis. Serial troponin levels are less than 0.01 and the patient was admitted to the intensi ve care unit for further observation and management. The patient is resting comfortably, denies any chest pain or shortness of breath at the present time. PAST MEDICAL HISTORY: Includes type 2 diabetes mellitus with diabetic neuropathy and morbid obesity, paroxysmal atrial fibrillation, nonobstructive coronary artery disease and obstructive sleep apnea. PAST SURGICAL HISTORY: Includes chronic venous stasis ulcers with chronic venous insufficiency and r ecurrent cellulitis of the lower extremities. CURRENT MEDICATIONS: Include Eliquis 2.5 mg twice daily, atenolol 25 mg daily, Percocet 10/325 one t ab 4 times daily, Januvia 100 mg daily, losartan 100 mg daily, Cardizem CD 180 mg daily, Xanax 1 mg 3 times daily. ALLERGIES: The patient has no known drug allergies. SOCIAL HISTORY: The patient has a history of approximately 40 pack years of tobacco use. He quit ap proximately 10 years ago. He has a history of current alcohol use. He is independent with ADLs and IADLs. REVIEW OF SYSTEMS: As above. There is no fever, no chills. There is some increased swelling of the lower extremities over the past couple of weeks. The patient had been recently started on Zaroxolyn 5 mg twice weekly. PHYSICAL EXAMINATION: GENERAL: The patient is a well-developed, obese male in no acute distress. VITAL SIGNS: Blood pressure 135/87, pulse 99, respiratory rate 18, temperature 98.2. HEENT: Head is normocephalic, atraumatic. Pupils equal, round and reactive to light. Extraocular m ovements intact. NECK: Supple, with no thyromegaly, no carotid bruit, no JVD. LUNGS: Show bibasilar crackles and a few scattered rhonchi. HEART: Regular rate and rhythm. ABDOMEN: Soft, nontender, obese. Bowel sounds are normoactive. EXTREMITIES: There is 3 to 4+ brawny edema of the lower extremities with some erythema and chronic d egenerative changes of the skin at the ankles bilaterally. There is a chronic venous stasis ulcer of the right lower extremity above the medial ankle approximately 8 x 10 cm with some scant purulence w hich is not foul smelling. NEUROLOGIC: The patient is awake and oriented x 3 without focal sensory or motor deficits. There is decreased sensation of the lower extremities to pin prick in a stocking distribution bilaterally. SKIN: Warm and dry. LABORATORY DATA: WBC is 13.1, hemoglobin 11.6, hematocrit 34.9. Sodium 130, potassium 3.1, chloride 88, CO2 29, BUN 18, creatinine 0.9, glucose 167. CT angio of the chest was done which was negative for pulmonary embolism. IMPRESSION: 1. Hypertension, hypertensive cardiovascular disease and congestive heart failure. 2. Paroxysmal atrial fibrillation. 3. Chronic obstructive pulmonary disease. 4. Obstructive sleep apnea. 5. Nonobstructive coronary artery disease. 6. Type 2 diabetes mellitus with morbid obesity and diabetic neuropathy. 7. Chronic venous insufficiency of the lower extremities with chronic venous stasis ulcers and recur rent cellulitis. PLAN: The patient is currently being monitored in the intensive care unit. Cardiology consultation by Dr. Vargas is appreciated. Would monitor electrolytes with potassium replacement. Would obtain pod iatry consult from Dr. Meadows/Dr. Kaur for wound care. Continue Accu-Cheks for regular insulin co verage with a low dose protocol. Maintain a consistent carbohydrate diet. Physical therapy and soci al work for discharge planning. Matthew Leiva JD, MD cc: [id number] TT: 12/17/2016 13:04:50 ar
[2016-12-17 15:04] LABS: POTASSIUM 4.2 mmol/L (3.6-5.0)
[2016-12-17 15:17] LABS: TROPONIN I < 0.01 ng/mL
--- NOTE | 2016-12-17 15:38 | CARD ---
APPROVED REPORT EKG Measurement Heart [id number] <Conclusion> Atrial fibrillation with rapid ventricular response Abnormal ECG
--- NOTE | 2016-12-17 15:39 | CARD ---
APPROVED REPORT EKG Measurement Heart [id number] <Conclusion> Atrial fibrillation Abnormal ECG
--- NOTE | 2016-12-17 15:58 | CP.CCUPN ---
<Blayne Thayer - Last Filed: 12/17/16 16:02> CCU Subjective - Physician Review Subjective (Free Text): 12/17/16 15:33 Patient seen and examined at bedside in the ICU. No new complaints, resting comfortably in bed, receiving a breathing treatment. Denies chest pain, worsened or new shortness of breath, cough, hemoptysis, lightheadedness/ dizziness, room spinning sensation, focal weakness, or changes in vision. Admits to some persistence of shortness of breath present prior to arrival, but notes it is less severe compared to severity at arrival. CCU Objective - Vital Signs / Intake & Output Vital Signs (Last 4 hours): Vital Signs Temp Pulse Resp BP Pulse Ox 12/17/16 14:20 85 20 94 L 12/17/16 14:10 83 21 96 12/17/16 14:00 82 17 143/76 90 L 12/17/16 13:50 78 17 95 12/17/16 13:40 91 H 94 L 12/17/16 13:30 89 16 88 L 12/17/16 13:20 92 H 95 12/17/16 13:10 87 20 96 12/17/16 13:00 94 H 22 143/82 93 L 12/17/16 12:50 83 16 96 12/17/16 12:40 99 H 45 H 96 12/17/16 12:36 101 H 12/17/16 12:30 107 H 97 12/17/16 12:20 104 H 16 97 12/17/16 12:10 102 H 98 12/17/16 12:00 97.6 F 102 H 21 154/90 H 96 12/17/16 11:59 99 H 135/87 12/17/16 11:50 103 H 16 98 12/17/16 11:40 98 H 17 98 Intake and Output (Last 8hrs): Intake & Output 12/17/16 12/17/16 12/17/16 06:59 14:59 22:59 Intake Total 140 250 Output Total 2024 300 Balance -1885 -50 Weight 154.675 kg Intake: IV 40 Right 40 Oral 100 250 Output: Urine 2024 300 Urine, Voided 1725 300 Other: Voiding Method Urinal # Bowel Movements 0 - Physical Exam Head: Positive for: Atraumatic, Normocephalic Extroacular Muscles: Positive for: EOMI. Negative for: Gaze Palsy, Entrapment Conjunctiva: Positive for: Normal, Other (dirty sclera bilaterally). Negative for: Injected, Icteric Mouth: Positive for: Moist Mucous Membranes. Negative for: Drooling Nose (External): Positive for: Atraumatic. Negative for: Abrasion, Contusion, Laceration Neck: Positive for: Normal Range of Motion Respiratory/Chest: Positive for: Wheezes. Negative for: Respiratory Distress, Accessory Muscle Use Cardiovascular: Positive for: Normal S1, S2, Irregular Rhythm (irregularly irregular, rapid afib), Peripheal Pulses Present (+2 radials bilaterally), Tachycardic. Negative for: Regular Rate and Rhythm, Murmurs Abdomen: Positive for: Tenderness (mild tenderness to palpation along midline at epigastric region), Normal Bowel Sounds, Other (firm to palpation, but not rigid, no discrete masses palpated). Negative for: Distention, Peritoneal Signs , Mass/Organomegaly Upper Extremity: Positive for: Normal Inspection, Normal ROM. Negative for: Cyanosis, Edema, Deformity Lower Extremity: Positive for: Edema (pitting edema +1-2 in bilateral feet, +2- 3 pitting edema in upper legs below knee at site of bandaging), Tenderness ( moderate tenderness in bilateral LE, no single focal point of tenderness in either leg), Erythema (generalized discoloration along both legs, dark red and waxy=colored skin consistent with venous insufficiency), Other (LARY wrapping along majority of both LE between knees and ankles, no active bleeding around either site). Negative for: Normal Inspection, CALF TENDERNESS, NORMAL PULSES ( unable to palpate pedal pulses) Neurological: Positive for: GCS=15, CN II-XII Intact, Speech Normal, Motor Func Grossly Intact Skin: Positive for: Warm, Dry, Normal Color (except as noted in Lower extremities section). Negative for: Rashes Psychiatric: Positive for: Alert, Oriented x 3, Normal Insight, Normal Concentration, Normal Affect, Normal Mood - Medications Active Medications: Active Medications Generic Name Dose Route Start Last Admin Trade Name Freq PRN Reason Stop Dose Admin Acetaminophen 650 mg 12/17/16 04:28 Tylenol 325mg Tab PO Q6H PRN Pain, Mild (1-3) Aspirin 81 mg 12/17/16 10:00 12/17/16 10:37 Aspirin Chewable PO Not Given DAILY SHAHEED Atorvastatin Calcium 80 mg 12/17/16 17:00 Lipitor PO DIN [facility] Dabigatran 150 mg 12/17/16 22:00 Pradaxa PO BID [facility] Protocol Diltiazem HCl 180 mg 12/17/16 10:00 12/17/16 11:59 Cardizem Cd PO 180 mg DAILY SHAHEED Administration Insulin Human Lispro 0 units 12/17/16 07:30 12/17/16 11:58 Humalog Low SC 3 units ACHS [facility] Administration Protocol Ipratropium [place] 0.5 mg 12/17/16 04:45 12/17/16 14:26 Atrovent IH 0.5 mg Q4H SHAHEED Administration Ipratropium [place] 0.5 mg 12/17/16 04:40 12/17/16 14:25 Atrovent IH 0.5 mg Q2H PRN Administration Shortness of Breath Levalbuterol HCl 1.25 mg 12/17/16 04:45 12/17/16 14:26 Xopenex IH 1.25 mg Q4H [facility] Administration Levalbuterol HCl 1.25 mg 12/17/16 04:40 Xopenex IH Q2H PRN Shortness of Breath Methylprednisolone 40 mg 12/17/16 14:00 Solu-Medrol IVP Q8 [facility] Metoprolol Tartrate 25 mg 12/17/16 10:00 12/17/16 11:59 Lopressor PO 25 mg BID [facility] Administration Morphine Sulfate 2 mg 12/17/16 04:28 12/17/16 08:19 Morphine IVP 2 mg Q4H PRN Administration Pain, severe (8-10) Ondansetron HCl 4 mg 12/17/16 04:28 Zofran Inj IVP Q6H PRN Nausea/Vomiting Pantoprazole Sodium 40 mg 12/17/16 10:00 12/17/16 10:38 Protonix Inj IVP Not Given DAILY [facility] Potassium Chloride 10 meq 12/17/16 10:00 12/17/16 10:38 Klor-Con 10 PO Not Given DAILY [facility] - Patient Studies Lab Studies: Lab Studies 12/17/16 12/17/16 12/17/16 Range/Units 14:45 10:00 07:33 WBC (4.5-11.0) 10^3/ul RBC (3.5-6.1) 10^6/uL Hgb (14.0-18.0) gm/dL Hct (42.0-52.0) % MCV (80.0-105.0) fL MCH (25.0-35.0) pg MCHC (31.0-37.0) g/dl RDW (11.5-14.5) % Plt Count (120.0-450.0) 10^3/uL MPV (7.0-11.0) fl Neutrophils % (Manual) (50.0-70.0) % Band Neutrophils % (0-2) % Lymphocytes % (Manual) (22.0-35.0) % Monocytes % (Manual) (1.0-6.0) % Platelet Evaluation (NORMAL) Polychromasia Anisocytosis (manual) pCO2 (35-45) mm/Hg pO2 (80-100) mm/Hg HCO3 (21-28) mmol/L ABG pH (7.35-7.45) ABG Total CO2 (22-28) mmol.L ABG O2 Saturation (95-98) % ABG O2 Content (15-23) ML/dl ABG Base Excess (-2.0-3.0) mmol/L ABG Hemoglobin (11.7-17.4) g/dL ABG Carboxyhemoglobin (0.5-1.5) % POC ABG HHb (Measured) (0-5) % ABG Methemoglobin (0.0-3.0) % ABG O2 Capacity (16-24) mL/dl VBG pH (7.32-7.43) VBG pCO2 (40-60) VBG HCO3 (21-28) mmol/l VBG Total CO2 (22-28) mmol.L VBG O2 Sat (Calc) (40-65) % VBG Base Excess (0.0-2.0) mmol/L VBG Potassium (3.6-5.2) mmol/L Hgb O2 Saturation (95.0-98.0) % Glucose (75-110) mg/dl Lactate (0.7-2.1) mmol/L FiO2 % Sodium (132-148) mmol/L Potassium 4.2 (3.6-5.0) mmol/L Chloride (98-107) mmol/L Carbon Dioxide (21-33) mmol/L Anion Gap (10-20) BUN (7-21) mg/dL Creatinine (0.5-1.4) mg/dL Est GFR ( Amer) Est GFR (Non-Af Amer) POC Glucose (mg/dL) 188 H (65-110) mg/dL Random Glucose (70-110) mg/dL Hemoglobin A1c (4.2-6.5) % Lactic Acid (0.7-2.1) mmol/L Calcium (8.4-10.5) mg/dL Phosphorus (2.5-4.5) mg/dL Magnesium (1.7-2.2) mg/dL Total Bilirubin (0.2-1.3) mg/dL AST (15-59) U/L ALT (7-56) U/L Alkaline Phosphatase (38-133) U/L Lactate Dehydrogenase 443 406 (333-699) U/L Total Creatine Kinase 56 65 (35-230) U/L Troponin I < 0.01 < 0.01 ng/mL Total Protein (5.8-8.3) g/dL Albumin (3.0-4.8) g/dL Globulin gm/dL Albumin/Globulin Ratio (1.1-1.8) Triglycerides (35-160) mg/dL Cholesterol (130-200) mg/dL LDL Cholesterol Direct (0-129) mg/dL HDL Cholesterol (29-60) mg/dL Procalcitonin (0.19-0.49) NG/ML TSH 3rd Generation (0.46-4.68) mIU/mL Venous Blood Potassium (3.6-5.2) mmol/L 12/17/16 12/17/16 12/17/16 Range/Units 06:30 05:50 05:50 WBC (4.5-11.0) 10^3/ul RBC (3.5-6.1) 10^6/uL Hgb (14.0-18.0) gm/dL Hct (42.0-52.0) % MCV (80.0-105.0) fL MCH (25.0-35.0) pg MCHC (31.0-37.0) g/dl RDW (11.5-14.5) % Plt Count (120.0-450.0) 10^3/uL MPV (7.0-11.0) fl Neutrophils % (Manual) (50.0-70.0) % Band Neutrophils % (0-2) % Lymphocytes % (Manual) (22.0-35.0) % Monocytes % (Manual) (1.0-6.0) % Platelet Evaluation (NORMAL) Polychromasia Anisocytosis (manual) pCO2 (35-45) mm/Hg pO2 79 H (80-100) mm/Hg HCO3 (21-28) mmol/L ABG pH (7.35-7.45) ABG Total CO2 (22-28) mmol.L ABG O2 Saturation (95-98) % ABG O2 Content (15-23) ML/dl ABG Base Excess (-2.0-3.0) mmol/L ABG Hemoglobin (11.7-17.4) g/dL ABG Carboxyhemoglobin (0.5-1.5) % POC ABG HHb (Measured) (0-5) % ABG Methemoglobin (0.0-3.0) % ABG O2 Capacity (16-24) mL/dl VBG pH 7.43 (7.32-7.43) VBG pCO2 46.0 (40-60) VBG HCO3 30.5 H (21-28) mmol/l VBG Total CO2 31.9 H (22-28) mmol.L VBG O2 Sat (Calc) 98.3 H (40-65) % VBG Base Excess 5.3 H (0.0-2.0) mmol/L VBG Potassium 3.1 L (3.6-5.2) mmol/L Hgb O2 Saturation (95.0-98.0) % Glucose 173 H (75-110) mg/dl Lactate 1.8 (0.7-2.1) mmol/L FiO2 21.0 % Sodium 130.0 L (132-148) mmol/L Potassium (3.6-5.0) mmol/L Chloride 93.0 L (98-107) mmol/L Carbon Dioxide (21-33) mmol/L Anion Gap (10-20) BUN (7-21) mg/dL Creatinine (0.5-1.4) mg/dL Est GFR ( Amer) Est GFR (Non-Af Amer) POC Glucose (mg/dL) (65-110) mg/dL Random Glucose (70-110) mg/dL Hemoglobin A1c (4.2-6.5) % Lactic Acid 1.7 (0.7-2.1) mmol/L Calcium (8.4-10.5) mg/dL Phosphorus (2.5-4.5) mg/dL Magnesium (1.7-2.2) mg/dL Total Bilirubin (0.2-1.3) mg/dL AST (15-59) U/L ALT (7-56) U/L Alkaline Phosphatase (38-133) U/L Lactate Dehydrogenase (333-699) U/L Total Creatine Kinase (35-230) U/L Troponin I ng/mL Total Protein (5.8-8.3) g/dL Albumin (3.0-4.8) g/dL Globulin gm/dL Albumin/Globulin Ratio (1.1-1.8) Triglycerides (35-160) mg/dL Cholesterol (130-200) mg/dL LDL Cholesterol Direct (0-129) mg/dL HDL Cholesterol (29-60) mg/dL Procalcitonin < 0.05 L (0.19-0.49) NG/ML TSH 3rd Generation (0.46-4.68) mIU/mL Venous Blood Potassium 3.1 L (3.6-5.2) mmol/L 12/17/16 12/17/16 12/17/16 Range/Units 05:50 05:50 05:50 WBC 13.1 H (4.5-11.0) 10^3/ul RBC 3.85 (3.5-6.1) 10^6/uL Hgb 11.6 L (14.0-18.0) gm/dL Hct 34.9 L (42.0-52.0) % MCV 90.6 (80.0-105.0) fL MCH 30.1 (25.0-35.0) pg MCHC 33.2 (31.0-37.0) g/dl RDW 16.4 H (11.5-14.5) % Plt Count 267 (120.0-450.0) 10^3/uL MPV 9.0 (7.0-11.0) fl Neutrophils % (Manual) 90 H (50.0-70.0) % Band Neutrophils % 6 H (0-2) % Lymphocytes % (Manual) 2 L (22.0-35.0) % Monocytes % (Manual) 2 (1.0-6.0) % Platelet Evaluation Normal (NORMAL) Polychromasia Slight Anisocytosis (manual) 1+ pCO2 (35-45) mm/Hg pO2 (80-100) mm/Hg HCO3 (21-28) mmol/L ABG pH (7.35-7.45) ABG Total CO2 (22-28) mmol.L ABG O2 Saturation (95-98) % ABG O2 Content (15-23) ML/dl ABG Base Excess (-2.0-3.0) mmol/L ABG Hemoglobin (11.7-17.4) g/dL ABG Carboxyhemoglobin (0.5-1.5) % POC ABG HHb (Measured) (0-5) % ABG Methemoglobin (0.0-3.0) % ABG O2 Capacity (16-24) mL/dl VBG pH (7.32-7.43) VBG pCO2 (40-60) VBG HCO3 (21-28) mmol/l VBG Total CO2 (22-28) mmol.L VBG O2 Sat (Calc) (40-65) % VBG Base Excess (0.0-2.0) mmol/L VBG Potassium (3.6-5.2) mmol/L Hgb O2 Saturation (95.0-98.0) % Glucose (75-110) mg/dl Lactate (0.7-2.1) mmol/L FiO2 % Sodium (132-148) mmol/L Potassium (3.6-5.0) mmol/L Chloride (98-107) mmol/L Carbon Dioxide (21-33) mmol/L Anion Gap (10-20) BUN (7-21) mg/dL Creatinine (0.5-1.4) mg/dL Est GFR ( Amer) Est GFR (Non-Af Amer) POC Glucose (mg/dL) (65-110) mg/dL Random Glucose (70-110) mg/dL Hemoglobin A1c 5.6 (4.2-6.5) % Lactic Acid (0.7-2.1) mmol/L Calcium (8.4-10.5) mg/dL Phosphorus (2.5-4.5) mg/dL Magnesium (1.7-2.2) mg/dL Total Bilirubin (0.2-1.3) mg/dL AST (15-59) U/L ALT (7-56) U/L Alkaline Phosphatase (38-133) U/L Lactate Dehydrogenase (333-699) U/L Total Creatine Kinase (35-230) U/L Troponin I ng/mL Total Protein (5.8-8.3) g/dL Albumin (3.0-4.8) g/dL Globulin gm/dL Albumin/Globulin Ratio (1.1-1.8) Triglycerides (35-160) mg/dL Cholesterol (130-200) mg/dL LDL Cholesterol Direct (0-129) mg/dL HDL Cholesterol (29-60) mg/dL Procalcitonin (0.19-0.49) NG/ML TSH 3rd Generation 1.47 (0.46-4.68) mIU/mL Venous Blood Potassium (3.6-5.2) mmol/L 12/17/16 12/17/16 Range/Units 05:50 04:53 WBC (4.5-11.0) 10^3/ul RBC (3.5-6.1) 10^6/uL Hgb (14.0-18.0) gm/dL Hct (42.0-52.0) % MCV (80.0-105.0) fL MCH (25.0-35.0) pg MCHC (31.0-37.0) g/dl RDW (11.5-14.5) % Plt Count (120.0-450.0) 10^3/uL MPV (7.0-11.0) fl Neutrophils % (Manual) (50.0-70.0) % Band Neutrophils % (0-2) % Lymphocytes % (Manual) (22.0-35.0) % Monocytes % (Manual) (1.0-6.0) % Platelet Evaluation (NORMAL) Polychromasia Anisocytosis (manual) pCO2 43 (35-45) mm/Hg pO2 71.0 L (80-100) mm/Hg HCO3 29.2 H (21-28) mmol/L ABG pH 7.44 (7.35-7.45) ABG Total CO2 30.5 H (22-28) mmol.L ABG O2 Saturation 97.0 (95-98) % ABG O2 Content 16.1 (15-23) ML/dl ABG Base Excess 4.5 H (-2.0-3.0) mmol/L ABG Hemoglobin 12.2 (11.7-17.4) g/dL ABG Carboxyhemoglobin 2.5 H (0.5-1.5) % POC ABG HHb (Measured) 2.9 (0-5) % ABG Methemoglobin 0.9 (0.0-3.0) % ABG O2 Capacity 16.6 (16-24) mL/dl VBG pH (7.32-7.43) VBG pCO2 (40-60) VBG HCO3 (21-28) mmol/l VBG Total CO2 (22-28) mmol.L VBG O2 Sat (Calc) (40-65) % VBG Base Excess (0.0-2.0) mmol/L VBG Potassium (3.6-5.2) mmol/L Hgb O2 Saturation 93.6 L (95.0-98.0) % Glucose (75-110) mg/dl Lactate (0.7-2.1) mmol/L FiO2 32.0 % Sodium 130 L (132-148) mmol/L Potassium 3.1 L (3.6-5.0) mmol/L Chloride 88 L (98-107) mmol/L Carbon Dioxide 29 (21-33) mmol/L Anion Gap 16 (10-20) BUN 18 (7-21) mg/dL Creatinine 0.9 (0.5-1.4) mg/dL Est GFR ( Amer) > 60 Est GFR (Non-Af Amer) > 60 POC Glucose (mg/dL) (65-110) mg/dL Random Glucose 167 H (70-110) mg/dL Hemoglobin A1c (4.2-6.5) % Lactic Acid (0.7-2.1) mmol/L Calcium 8.5 (8.4-10.5) mg/dL Phosphorus 3.4 (2.5-4.5) mg/dL Magnesium 1.9 (1.7-2.2) mg/dL Total Bilirubin 1.4 H (0.2-1.3) mg/dL AST 50 (15-59) U/L ALT 45 (7-56) U/L Alkaline Phosphatase 91 (38-133) U/L Lactate Dehydrogenase (333-699) U/L Total Creatine Kinase 77 (35-230) U/L Troponin I < 0.01 ng/mL Total Protein 8.8 H (5.8-8.3) g/dL Albumin 4.2 (3.0-4.8) g/dL Globulin 4.6 gm/dL Albumin/Globulin Ratio 0.9 L (1.1-1.8) Triglycerides 57 (35-160) mg/dL Cholesterol 144 (130-200) mg/dL LDL Cholesterol Direct 77 (0-129) mg/dL HDL Cholesterol 48 (29-60) mg/dL Procalcitonin (0.19-0.49) NG/ML TSH 3rd Generation (0.46-4.68) mIU/mL Venous Blood Potassium (3.6-5.2) mmol/L Laboratory Results - last 24 hr 12/17/16 12/17/16 12/17/16 04:53 05:50 05:50 WBC 13.1 H RBC 3.85 Hgb 11.6 L Hct 34.9 L MCV 90.6 MCH 30.1 MCHC 33.2 RDW 16.4 H Plt Count 267 MPV 9.0 Neutrophils % (Manual) 90 H Band Neutrophils % 6 H Lymphocytes % (Manual) 2 L Monocytes % (Manual) 2 Platelet Evaluation Normal Polychromasia Slight Anisocytosis (manual) 1+ pCO2 43 pO2 71.0 L HCO3 29.2 H ABG pH 7.44 ABG Total CO2 30.5 H ABG O2 Saturation 97.0 ABG O2 Content 16.1 ABG Base Excess 4.5 H ABG Hemoglobin 12.2 ABG Carboxyhemoglobin 2.5 H POC ABG HHb (Measured) 2.9 ABG Methemoglobin 0.9 ABG O2 Capacity 16.6 VBG pH VBG pCO2 VBG HCO3 VBG Total CO2 VBG O2 Sat (Calc) VBG Base Excess VBG Potassium Hgb O2 Saturation 93.6 L Glucose Lactate FiO2 32.0 Sodium 130 L Potassium 3.1 L Chloride 88 L Carbon Dioxide 29 Anion Gap 16 BUN 18 Creatinine 0.9 Est GFR ( Amer) > 60 Est GFR (Non-Af Amer) > 60 POC Glucose (mg/dL) Random Glucose 167 H Hemoglobin A1c Lactic Acid Calcium 8.5 Phosphorus 3.4 Magnesium 1.9 Total Bilirubin 1.4 H AST 50 ALT 45 Alkaline Phosphatase 91 Lactate Dehydrogenase Total Creatine Kinase 77 Troponin I < 0.01 Total Protein 8.8 H Albumin 4.2 Globulin 4.6 Albumin/Globulin Ratio 0.9 L Triglycerides 57 Cholesterol 144 LDL Cholesterol Direct 77 HDL Cholesterol 48 Procalcitonin TSH 3rd Generation Venous Blood Potassium 12/17/16 12/17/16 12/17/16 05:50 05:50 05:50 WBC RBC Hgb Hct MCV MCH MCHC RDW Plt Count MPV Neutrophils % (Manual) Band Neutrophils % Lymphocytes % (Manual) Monocytes % (Manual) Platelet Evaluation Polychromasia Anisocytosis (manual) pCO2 pO2 HCO3 ABG pH ABG Total CO2 ABG O2 Saturation ABG O2 Content ABG Base Excess ABG Hemoglobin ABG Carboxyhemoglobin POC ABG HHb (Measured) ABG Methemoglobin ABG O2 Capacity VBG pH VBG pCO2 VBG HCO3 VBG Total CO2 VBG O2 Sat (Calc) VBG Base Excess VBG Potassium Hgb O2 Saturation Glucose Lactate FiO2 Sodium Potassium Chloride Carbon Dioxide Anion Gap BUN Creatinine Est GFR ( Amer) Est GFR (Non-Af Amer) POC Glucose (mg/dL) Random Glucose Hemoglobin A1c 5.6 Lactic Acid Calcium Phosphorus Magnesium Total Bilirubin AST ALT Alkaline Phosphatase Lactate Dehydrogenase Total Creatine Kinase Troponin I Total Protein Albumin Globulin Albumin/Globulin Ratio Triglycerides Cholesterol LDL Cholesterol Direct HDL Cholesterol Procalcitonin < 0.05 L TSH 3rd Generation 1.47 Venous Blood Potassium 12/17/16 12/17/16 12/17/16 05:50 06:30 07:33 WBC RBC Hgb Hct MCV MCH MCHC RDW Plt Count MPV Neutrophils % (Manual) Band Neutrophils % Lymphocytes % (Manual) Monocytes % (Manual) Platelet Evaluation Polychromasia Anisocytosis (manual) pCO2 pO2 79 H HCO3 ABG pH ABG Total CO2 ABG O2 Saturation ABG O2 Content ABG Base Excess ABG Hemoglobin ABG Carboxyhemoglobin POC ABG HHb (Measured) ABG Methemoglobin ABG O2 Capacity VBG pH 7.43 VBG pCO2 46.0 VBG HCO3 30.5 H VBG Total CO2 31.9 H VBG O2 Sat (Calc) 98.3 H VBG Base Excess 5.3 H VBG Potassium 3.1 L Hgb O2 Saturation Glucose 173 H Lactate 1.8 FiO2 21.0 Sodium 130.0 L Potassium Chloride 93.0 L Carbon Dioxide Anion Gap BUN Creatinine Est GFR ( Amer) Est GFR (Non-Af Amer) POC Glucose (mg/dL) 188 H Random Glucose Hemoglobin A1c Lactic Acid 1.7 Calcium Phosphorus Magnesium Total Bilirubin AST ALT Alkaline Phosphatase Lactate Dehydrogenase Total Creatine Kinase Troponin I Total Protein Albumin Globulin Albumin/Globulin Ratio Triglycerides Cholesterol LDL Cholesterol Direct HDL Cholesterol Procalcitonin TSH 3rd Generation Venous Blood Potassium 3.1 L 12/17/16 12/17/16 10:00 14:45 WBC RBC Hgb Hct MCV MCH MCHC RDW Plt Count MPV Neutrophils % (Manual) Band Neutrophils % Lymphocytes % (Manual) Monocytes % (Manual) Platelet Evaluation Polychromasia Anisocytosis (manual) pCO2 pO2 HCO3 ABG pH ABG Total CO2 ABG O2 Saturation ABG O2 Content ABG Base Excess ABG Hemoglobin ABG Carboxyhemoglobin POC ABG HHb (Measured) ABG Methemoglobin ABG O2 Capacity VBG pH VBG pCO2 VBG HCO3 VBG Total CO2 VBG O2 Sat (Calc) VBG Base Excess VBG Potassium Hgb O2 Saturation Glucose Lactate FiO2 Sodium Potassium 4.2 Chloride Carbon Dioxide Anion Gap BUN Creatinine Est GFR ( Amer) Est GFR (Non-Af Amer) POC Glucose (mg/dL) Random Glucose Hemoglobin A1c Lactic Acid Calcium Phosphorus Magnesium Total Bilirubin AST ALT Alkaline Phosphatase Lactate Dehydrogenase 406 443 Total Creatine Kinase 65 56 Troponin I < 0.01 < 0.01 Total Protein Albumin Globulin Albumin/Globulin Ratio Triglycerides Cholesterol LDL Cholesterol Direct HDL Cholesterol Procalcitonin TSH 3rd Generation Venous Blood Potassium EKG/Cardiology Studies: Cardiology / EKG Studies 12/17/16 08:00 ELECTROCARDIOGRAM Q8H Comment: Reason For Exam: rule out acute ischemia 12/17/16 16:00 ELECTROCARDIOGRAM Q8H Comment: Reason For Exam: rule out acute ischemia Fingerstick Blood Sugar Results: 292 Review of Systems - Constitutional Constitutional: absent: Fever, Chills - EENT Eyes: absent: Blurred Vision, Loss of Vision Ears: absent: Dizziness Nose/Mouth/Throat: absent: Sore Throat, Neck Pain - Cardiovascular Cardiovascular: Dyspnea (persisting, but improved). absent: Chest Pain, Pain Radiating to Arm/Neck/Jaw, Lightheadedness, Palpitations, Syncope - Respiratory Respiratory: Dyspnea (persisting, but improved). absent: Cough, Hemoptysis, Pain on Inspiration - Gastrointestinal Gastrointestinal: Abdominal Pain. absent: Constipation, Diarrhea, Nausea, Vomiting - Genitourinary Genitourinary: absent: Dysuria, Flank Pain, Hematuria - Musculoskeletal Musculoskeletal: absent: Muscle Weakness, Numbness - Integumentary Integumentary: absent: Pruritus, Rash - Neurological Neurological: absent: Focal Weakness, Loss of Vision, Syncope, Other Visual Disturbances - Endocrine Endocrine: absent: Palpitations Critical Care Progress Note - Nutrition Nutrition: Nutrition Category Date Time Status Heart Healthy Diet [DIET] Diets 12/17/16 Breakfast Ordered Assessment/Plan - Assessment and Plan (Free Text) Assessment: This is a 56 yo M with PMH of NIDDM, paroxysmal atrial fibrillation ( on Pradaxa), non-obstructive coronary artery disease, chronic venous stasis ulcers, HTN, and JOSELINE who was admitted to the ICU for possible CHF exacerbation while pending rule out of possible PE, and management of AFib with RVR requiring Cardizem drip. Plan: Neuro: -awake and alert, following all commands appropriately, moving all extremities spontaneously -maintain normothermia Pulm: -Satting well on 3L NC O2, maintain SaO2 > 90% and paO2 > 60 -Conservative O2 Management -Aspiration precautions -CXR on admission looks fluid overloaded, more likely CHF exacerbation in setting of medication non-compliance, less likely COPD -Covered with levofloxacin on admission, less likely infectious etiology so will hold further doses for now -Lasix IVP 40mg x1, f/u I's&O's and adjust lasix dosing accordingly -Continue Xopenex and Atrovent, Solumedrol Cardio: -Hx CHF, hx medication non-compliance -Lasix 40mg IVP x1, f/u I's&O's and adjust Lasix dosing as needed -More likely SOB 2/2 CHF exacerbation than COPD -Cardio on board, appreciate all recs -Continue ASA, Lipitor, Lopressor -Pradaxa for DVT ppx, covers AC for AFib -On Cardizem drip 15mg/hr, restarted on PO Cardizem CD 180mg, wean off Cardizem drip -Trops negative x4 GI: -Heart-healthy diet -Protonix for GI ppx Renal: -Cr 0.6 -Making yellow urine -Avoid nephrotoxic drugs as feasible -Monitor and replete electrolytes as needed; K repleted today, f/u recheck at 2pm -maintain euglycemia (140-180), no euvolemia as actively attempting to diurese Heme: -Hgb 11.6, stable -Pradaxa for DVT ppx ID: -Leukocytosis, increased from 11.7 to 13.1 -afebrile -likely elevated 2/2 steroid use -Covered with levofloxacin on admission, less likely infectious etiology so will hold further doses for now Dispo: ICU, weaning from Cardizem drip onto oral Cardizem, pending transfer to telemetry after Drip weaned FEN: Heart-healthy Access: Peripheral IV Consults: Cardio Ppx: Protonix for GI, Pradaxa covers for DVT Patient seen, reviewed, and discussed with attending, Dr. Fields. - Date & Time Date: 12/17/16 Time: 16:53 <Donnie DONG,Inamul H - Last Filed: 12/17/16 18:59> CCU Objective - Vital Signs / Intake & Output Vital Signs (Last 4 hours): Vital Signs Temp Pulse Resp BP Pulse Ox 12/17/16 17:31 88 17 141/76 96 12/17/16 17:30 92 H 94 L 12/17/16 17:20 90 L 12/17/16 17:10 80 95 12/17/16 17:00 92 L 12/17/16 16:50 99 H 17 94 L 12/17/16 16:40 96 H 10 L 95 12/17/16 16:30 93 H 19 94 L 12/17/16 16:20 95 H 93 L 12/17/16 16:10 90 19 96 12/17/16 16:00 98.4 F 93 H 20 160/82 H 91 L 12/17/16 15:50 94 H 22 91 L 12/17/16 15:40 84 20 93 L 12/17/16 15:32 84 20 12/17/16 15:30 80 30 H 100 12/17/16 15:20 85 15 98 12/17/16 15:10 85 60 H 93 L 12/17/16 15:00 88 27 H 133/75 95 Intake and Output (Last 8hrs): Intake & Output 12/17/16 12/17/16 12/17/16 06:59 14:59 22:59 Intake Total 140 250 750 Output Total 2024 300 1050 Balance -1885 -50 -300 Weight 341 lb Intake: IV 40 100 Right 40 100 Oral 100 250 650 Output: Urine 2024 300 1050 Urine, Voided 4610 [id number] Other: Voiding Method Urinal # Bowel Movements 0 - Medications Active Medications: Active Medications Generic Name Dose Route Start Last Admin Trade Name Freq PRN Reason Stop Dose Admin Acetaminophen 650 mg 12/17/16 04:28 Tylenol 325mg Tab PO Q6H PRN Pain, Mild (1-3) Aspirin 81 mg 12/17/16 10:00 12/17/16 10:37 Aspirin Chewable PO Not Given DAILY [facility] Atorvastatin Calcium 80 mg 12/17/16 17:00 12/17/16 17:33 Lipitor PO 80 mg DIN SHAHEED Administration Dabigatran 150 mg 12/17/16 22:00 Pradaxa PO BID [facility] Protocol Diltiazem HCl 180 mg 12/17/16 10:00 12/17/16 11:59 Cardizem Cd PO 180 mg DAILY SHAHEED Administration Furosemide 40 mg 12/18/16 10:00 Lasix IVP DAILY [facility] Insulin Human Lispro 0 units 12/17/16 07:30 12/17/16 17:33 Humalog Low SC 2 units ACHS SHAHEED Administration Protocol Ipratropium [place] 0.5 mg 12/17/16 04:45 12/17/16 14:26 Atrovent IH 0.5 mg Q4H SHAHEED Administration Ipratropium [place] 0.5 mg 12/17/16 04:40 12/17/16 14:25 Atrovent IH 0.5 mg Q2H PRN Administration Shortness of Breath Levalbuterol HCl 1.25 mg 12/17/16 04:45 12/17/16 14:26 Xopenex IH 1.25 mg Q4H SHAHEED Administration Levalbuterol HCl 1.25 mg 12/17/16 04:40 Xopenex IH Q2H PRN Shortness of Breath Methylprednisolone 40 mg 12/17/16 14:00 12/17/16 17:31 Solu-Medrol IVP 40 mg Q8 SHAHEED Administration Metoprolol Tartrate 25 mg 12/17/16 10:00 12/17/16 17:31 Lopressor PO 25 mg BID SHAHEED Administration Morphine Sulfate 2 mg 12/17/16 04:28 12/17/16 08:19 Morphine IVP 2 mg Q4H PRN Administration Pain, severe (8-10) Ondansetron HCl 4 mg 12/17/16 04:28 Zofran Inj IVP Q6H PRN Nausea/Vomiting Pantoprazole Sodium 40 mg 12/17/16 10:00 12/17/16 10:38 Protonix Inj IVP Not Given DAILY SHAHEED Potassium Chloride 10 meq 12/17/16 10:00 12/17/16 10:38 Klor-Con 10 PO Not Given DAILY SHAHEED - Patient Studies Lab Studies: Lab Studies 12/17/16 12/17/16 12/17/16 Range/Units 16:52 14:45 11:27 WBC (4.5-11.0) 10^3/ul RBC (3.5-6.1) 10^6/uL Hgb (14.0-18.0) gm/dL Hct (42.0-52.0) % MCV (80.0-105.0) fL MCH (25.0-35.0) pg MCHC (31.0-37.0) g/dl RDW (11.5-14.5) % Plt Count (120.0-450.0) 10^3/uL MPV (7.0-11.0) fl Neutrophils % (Manual) (50.0-70.0) % Band Neutrophils % (0-2) % Lymphocytes % (Manual) (22.0-35.0) % Monocytes % (Manual) (1.0-6.0) % Platelet Evaluation (NORMAL) Polychromasia Anisocytosis (manual) pCO2 (35-45) mm/Hg pO2 (80-100) mm/Hg HCO3 (21-28) mmol/L ABG pH (7.35-7.45) ABG Total CO2 (22-28) mmol.L ABG O2 Saturation (95-98) % ABG O2 Content (15-23) ML/dl ABG Base Excess (-2.0-3.0) mmol/L ABG Hemoglobin (11.7-17.4) g/dL ABG Carboxyhemoglobin (0.5-1.5) % POC ABG HHb (Measured) (0-5) % ABG Methemoglobin (0.0-3.0) % ABG O2 Capacity (16-24) mL/dl VBG pH (7.32-7.43) VBG pCO2 (40-60) VBG HCO3 (21-28) mmol/l VBG Total CO2 (22-28) mmol.L VBG O2 Sat (Calc) (40-65) % VBG Base Excess (0.0-2.0) mmol/L VBG Potassium (3.6-5.2) mmol/L Hgb O2 Saturation (95.0-98.0) % Glucose (75-110) mg/dl Lactate (0.7-2.1) mmol/L FiO2 % Sodium (132-148) mmol/L Potassium 4.2 (3.6-5.0) mmol/L Chloride (98-107) mmol/L Carbon Dioxide (21-33) mmol/L Anion Gap (10-20) BUN (7-21) mg/dL Creatinine (0.5-1.4) mg/dL Est GFR ( Amer) Est GFR (Non-Af Amer) POC Glucose (mg/dL) 212 H 292 H (65-110) mg/dL Random Glucose (70-110) mg/dL Hemoglobin A1c (4.2-6.5) % Lactic Acid (0.7-2.1) mmol/L Calcium (8.4-10.5) mg/dL Phosphorus (2.5-4.5) mg/dL Magnesium (1.7-2.2) mg/dL Total Bilirubin (0.2-1.3) mg/dL AST (15-59) U/L ALT (7-56) U/L Alkaline Phosphatase (38-133) U/L Lactate Dehydrogenase 443 (333-699) U/L Total Creatine Kinase 56 (35-230) U/L Troponin I < 0.01 ng/mL Total Protein (5.8-8.3) g/dL Albumin (3.0-4.8) g/dL Globulin gm/dL Albumin/Globulin Ratio (1.1-1.8) Triglycerides (35-160) mg/dL Cholesterol (130-200) mg/dL LDL Cholesterol Direct (0-129) mg/dL HDL Cholesterol (29-60) mg/dL Procalcitonin (0.19-0.49) NG/ML TSH 3rd Generation (0.46-4.68) mIU/mL Venous Blood Potassium (3.6-5.2) mmol/L 12/17/16 12/17/16 12/17/16 Range/Units 10:00 07:33 06:30 WBC (4.5-11.0) 10^3/ul RBC (3.5-6.1) 10^6/uL Hgb (14.0-18.0) gm/dL Hct (42.0-52.0) % MCV (80.0-105.0) fL MCH (25.0-35.0) pg MCHC (31.0-37.0) g/dl RDW (11.5-14.5) % Plt Count (120.0-450.0) 10^3/uL MPV (7.0-11.0) fl Neutrophils % (Manual) (50.0-70.0) % Band Neutrophils % (0-2) % Lymphocytes % (Manual) (22.0-35.0) % Monocytes % (Manual) (1.0-6.0) % Platelet Evaluation (NORMAL) Polychromasia Anisocytosis (manual) pCO2 (35-45) mm/Hg pO2 79 H (80-100) mm/Hg HCO3 (21-28) mmol/L ABG pH (7.35-7.45) ABG Total CO2 (22-28) mmol.L ABG O2 Saturation (95-98) % ABG O2 Content (15-23) ML/dl ABG Base Excess (-2.0-3.0) mmol/L ABG Hemoglobin (11.7-17.4) g/dL ABG Carboxyhemoglobin (0.5-1.5) % POC ABG HHb (Measured) (0-5) % ABG Methemoglobin (0.0-3.0) % ABG O2 Capacity (16-24) mL/dl VBG pH 7.43 (7.32-7.43) VBG pCO2 46.0 (40-60) VBG HCO3 30.5 H (21-28) mmol/l VBG Total CO2 31.9 H (22-28) mmol.L VBG O2 Sat (Calc) 98.3 H (40-65) % VBG Base Excess 5.3 H (0.0-2.0) mmol/L VBG Potassium 3.1 L (3.6-5.2) mmol/L Hgb O2 Saturation (95.0-98.0) % Glucose 173 H (75-110) mg/dl Lactate 1.8 (0.7-2.1) mmol/L FiO2 21.0 % Sodium 130.0 L (132-148) mmol/L Potassium (3.6-5.0) mmol/L Chloride 93.0 L (98-107) mmol/L Carbon Dioxide (21-33) mmol/L Anion Gap (10-20) BUN (7-21) mg/dL Creatinine (0.5-1.4) mg/dL Est GFR ( Amer) Est GFR (Non-Af Amer) POC Glucose (mg/dL) 188 H (65-110) mg/dL Random Glucose (70-110) mg/dL Hemoglobin A1c (4.2-6.5) % Lactic Acid (0.7-2.1) mmol/L Calcium (8.4-10.5) mg/dL Phosphorus (2.5-4.5) mg/dL Magnesium (1.7-2.2) mg/dL Total Bilirubin (0.2-1.3) mg/dL AST (15-59) U/L ALT (7-56) U/L Alkaline Phosphatase (38-133) U/L Lactate Dehydrogenase 406 (333-699) U/L Total Creatine Kinase 65 (35-230) U/L Troponin I < 0.01 ng/mL Total Protein (5.8-8.3) g/dL Albumin (3.0-4.8) g/dL Globulin gm/dL Albumin/Globulin Ratio (1.1-1.8) Triglycerides (35-160) mg/dL Cholesterol (130-200) mg/dL LDL Cholesterol Direct (0-129) mg/dL HDL Cholesterol (29-60) mg/dL Procalcitonin (0.19-0.49) NG/ML TSH 3rd Generation (0.46-4.68) mIU/mL Venous Blood Potassium 3.1 L (3.6-5.2) mmol/L 12/17/16 12/17/16 12/17/16 Range/Units 05:50 05:50 05:50 WBC (4.5-11.0) 10^3/ul RBC (3.5-6.1) 10^6/uL Hgb (14.0-18.0) gm/dL Hct (42.0-52.0) % MCV (80.0-105.0) fL MCH (25.0-35.0) pg MCHC (31.0-37.0) g/dl RDW (11.5-14.5) % Plt Count (120.0-450.0) 10^3/uL MPV (7.0-11.0) fl Neutrophils % (Manual) (50.0-70.0) % Band Neutrophils % (0-2) % Lymphocytes % (Manual) (22.0-35.0) % Monocytes % (Manual) (1.0-6.0) % Platelet Evaluation (NORMAL) Polychromasia Anisocytosis (manual) pCO2 (35-45) mm/Hg pO2 (80-100) mm/Hg HCO3 (21-28) mmol/L ABG pH (7.35-7.45) ABG Total CO2 (22-28) mmol.L ABG O2 Saturation (95-98) % ABG O2 Content (15-23) ML/dl ABG Base Excess (-2.0-3.0) mmol/L ABG Hemoglobin (11.7-17.4) g/dL ABG Carboxyhemoglobin (0.5-1.5) % POC ABG HHb (Measured) (0-5) % ABG Methemoglobin (0.0-3.0) % ABG O2 Capacity (16-24) mL/dl VBG pH (7.32-7.43) VBG pCO2 (40-60) VBG HCO3 (21-28) mmol/l VBG Total CO2 (22-28) mmol.L VBG O2 Sat (Calc) (40-65) % VBG Base Excess (0.0-2.0) mmol/L VBG Potassium (3.6-5.2) mmol/L Hgb O2 Saturation (95.0-98.0) % Glucose (75-110) mg/dl Lactate (0.7-2.1) mmol/L FiO2 % Sodium (132-148) mmol/L Potassium (3.6-5.0) mmol/L Chloride (98-107) mmol/L Carbon Dioxide (21-33) mmol/L Anion Gap (10-20) BUN (7-21) mg/dL Creatinine (0.5-1.4) mg/dL Est GFR ( Amer) Est GFR (Non-Af Amer) POC Glucose (mg/dL) (65-110) mg/dL Random Glucose (70-110) mg/dL Hemoglobin A1c 5.6 (4.2-6.5) % Lactic Acid 1.7 (0.7-2.1) mmol/L Calcium (8.4-10.5) mg/dL Phosphorus (2.5-4.5) mg/dL Magnesium (1.7-2.2) mg/dL Total Bilirubin (0.2-1.3) mg/dL AST (15-59) U/L ALT (7-56) U/L Alkaline Phosphatase (38-133) U/L Lactate Dehydrogenase (333-699) U/L Total Creatine Kinase (35-230) U/L Troponin I ng/mL Total Protein (5.8-8.3) g/dL Albumin (3.0-4.8) g/dL Globulin gm/dL Albumin/Globulin Ratio (1.1-1.8) Triglycerides (35-160) mg/dL Cholesterol (130-200) mg/dL LDL Cholesterol Direct (0-129) mg/dL HDL Cholesterol (29-60) mg/dL Procalcitonin < 0.05 L (0.19-0.49) NG/ML TSH 3rd Generation (0.46-4.68) mIU/mL Venous Blood Potassium (3.6-5.2) mmol/L 12/17/16 12/17/16 12/17/16 Range/Units 05:50 05:50 05:50 WBC 13.1 H (4.5-11.0) 10^3/ul RBC 3.85 (3.5-6.1) 10^6/uL Hgb 11.6 L (14.0-18.0) gm/dL Hct 34.9 L (42.0-52.0) % MCV 90.6 (80.0-105.0) fL MCH 30.1 (25.0-35.0) pg MCHC 33.2 (31.0-37.0) g/dl RDW 16.4 H (11.5-14.5) % Plt Count 267 (120.0-450.0) 10^3/uL MPV 9.0 (7.0-11.0) fl Neutrophils % (Manual) 90 H (50.0-70.0) % Band Neutrophils % 6 H (0-2) % Lymphocytes % (Manual) 2 L (22.0-35.0) % Monocytes % (Manual) 2 (1.0-6.0) % Platelet Evaluation Normal (NORMAL) Polychromasia Slight Anisocytosis (manual) 1+ pCO2 (35-45) mm/Hg pO2 (80-100) mm/Hg HCO3 (21-28) mmol/L ABG pH (7.35-7.45) ABG Total CO2 (22-28) mmol.L ABG O2 Saturation (95-98) % ABG O2 Content (15-23) ML/dl ABG Base Excess (-2.0-3.0) mmol/L ABG Hemoglobin (11.7-17.4) g/dL ABG Carboxyhemoglobin (0.5-1.5) % POC ABG HHb (Measured) (0-5) % ABG Methemoglobin (0.0-3.0) % ABG O2 Capacity (16-24) mL/dl VBG pH (7.32-7.43) VBG pCO2 (40-60) VBG HCO3 (21-28) mmol/l VBG Total CO2 (22-28) mmol.L VBG O2 Sat (Calc) (40-65) % VBG Base Excess (0.0-2.0) mmol/L VBG Potassium (3.6-5.2) mmol/L Hgb O2 Saturation (95.0-98.0) % Glucose (75-110) mg/dl Lactate (0.7-2.1) mmol/L FiO2 % Sodium 130 L (132-148) mmol/L Potassium 3.1 L (3.6-5.0) mmol/L Chloride 88 L (98-107) mmol/L Carbon Dioxide 29 (21-33) mmol/L Anion Gap 16 (10-20) BUN 18 (7-21) mg/dL Creatinine 0.9 (0.5-1.4) mg/dL Est GFR ( Amer) > 60 Est GFR (Non-Af Amer) > 60 POC Glucose (mg/dL) (65-110) mg/dL Random Glucose 167 H (70-110) mg/dL Hemoglobin A1c (4.2-6.5) % Lactic Acid (0.7-2.1) mmol/L Calcium 8.5 (8.4-10.5) mg/dL Phosphorus 3.4 (2.5-4.5) mg/dL Magnesium 1.9 (1.7-2.2) mg/dL Total Bilirubin 1.4 H (0.2-1.3) mg/dL AST 50 (15-59) U/L ALT 45 (7-56) U/L Alkaline Phosphatase 91 (38-133) U/L Lactate Dehydrogenase (333-699) U/L Total Creatine Kinase 77 (35-230) U/L Troponin I < 0.01 ng/mL Total Protein 8.8 H (5.8-8.3) g/dL Albumin 4.2 (3.0-4.8) g/dL Globulin 4.6 gm/dL Albumin/Globulin Ratio 0.9 L (1.1-1.8) Triglycerides 57 (35-160) mg/dL Cholesterol 144 (130-200) mg/dL LDL Cholesterol Direct 77 (0-129) mg/dL HDL Cholesterol 48 (29-60) mg/dL Procalcitonin (0.19-0.49) NG/ML TSH 3rd Generation 1.47 (0.46-4.68) mIU/mL Venous Blood Potassium (3.6-5.2) mmol/L 12/17/16 Range/Units 04:53 WBC (4.5-11.0) 10^3/ul RBC (3.5-6.1) 10^6/uL Hgb (14.0-18.0) gm/dL Hct (42.0-52.0) % MCV (80.0-105.0) fL MCH (25.0-35.0) pg MCHC (31.0-37.0) g/dl RDW (11.5-14.5) % Plt Count (120.0-450.0) 10^3/uL MPV (7.0-11.0) fl Neutrophils % (Manual) (50.0-70.0) % Band Neutrophils % (0-2) % Lymphocytes % (Manual) (22.0-35.0) % Monocytes % (Manual) (1.0-6.0) % Platelet Evaluation (NORMAL) Polychromasia Anisocytosis (manual) pCO2 43 (35-45) mm/Hg pO2 71.0 L (80-100) mm/Hg HCO3 29.2 H (21-28) mmol/L ABG pH 7.44 (7.35-7.45) ABG Total CO2 30.5 H (22-28) mmol.L ABG O2 Saturation 97.0 (95-98) % ABG O2 Content 16.1 (15-23) ML/dl ABG Base Excess 4.5 H (-2.0-3.0) mmol/L ABG Hemoglobin 12.2 (11.7-17.4) g/dL ABG Carboxyhemoglobin 2.5 H (0.5-1.5) % POC ABG HHb (Measured) 2.9 (0-5) % ABG Methemoglobin 0.9 (0.0-3.0) % ABG O2 Capacity 16.6 (16-24) mL/dl VBG pH (7.32-7.43) VBG pCO2 (40-60) VBG HCO3 (21-28) mmol/l VBG Total CO2 (22-28) mmol.L VBG O2 Sat (Calc) (40-65) % VBG Base Excess (0.0-2.0) mmol/L VBG Potassium (3.6-5.2) mmol/L Hgb O2 Saturation 93.6 L (95.0-98.0) % Glucose (75-110) mg/dl Lactate (0.7-2.1) mmol/L FiO2 32.0 % Sodium (132-148) mmol/L Potassium (3.6-5.0) mmol/L Chloride (98-107) mmol/L Carbon Dioxide (21-33) mmol/L Anion Gap (10-20) BUN (7-21) mg/dL Creatinine (0.5-1.4) mg/dL Est GFR ( Amer) Est GFR (Non-Af Amer) POC Glucose (mg/dL) (65-110) mg/dL Random Glucose (70-110) mg/dL Hemoglobin A1c (4.2-6.5) % Lactic Acid (0.7-2.1) mmol/L Calcium (8.4-10.5) mg/dL Phosphorus (2.5-4.5) mg/dL Magnesium (1.7-2.2) mg/dL Total Bilirubin (0.2-1.3) mg/dL AST (15-59) U/L ALT (7-56) U/L Alkaline Phosphatase (38-133) U/L Lactate Dehydrogenase (333-699) U/L Total Creatine Kinase (35-230) U/L Troponin I ng/mL Total Protein (5.8-8.3) g/dL Albumin (3.0-4.8) g/dL Globulin gm/dL Albumin/Globulin Ratio (1.1-1.8) Triglycerides (35-160) mg/dL Cholesterol (130-200) mg/dL LDL Cholesterol Direct (0-129) mg/dL HDL Cholesterol (29-60) mg/dL Procalcitonin (0.19-0.49) NG/ML TSH 3rd Generation (0.46-4.68) mIU/mL Venous Blood Potassium (3.6-5.2) mmol/L Laboratory Results - last 24 hr 12/17/16 12/17/16 12/17/16 04:53 05:50 05:50 WBC 13.1 H RBC 3.85 Hgb 11.6 L Hct 34.9 L MCV 90.6 MCH 30.1 MCHC 33.2 RDW 16.4 H Plt Count 267 MPV 9.0 Neutrophils % (Manual) 90 H Band Neutrophils % 6 H Lymphocytes % (Manual) 2 L Monocytes % (Manual) 2 Platelet Evaluation Normal Polychromasia Slight Anisocytosis (manual) 1+ pCO2 43 pO2 71.0 L HCO3 29.2 H ABG pH 7.44 ABG Total CO2 30.5 H ABG O2 Saturation 97.0 ABG O2 Content 16.1 ABG Base Excess 4.5 H ABG Hemoglobin 12.2 ABG Carboxyhemoglobin 2.5 H POC ABG HHb (Measured) 2.9 ABG Methemoglobin 0.9 ABG O2 Capacity 16.6 VBG pH VBG pCO2 VBG HCO3 VBG Total CO2 VBG O2 Sat (Calc) VBG Base Excess VBG Potassium Hgb O2 Saturation 93.6 L Glucose Lactate FiO2 32.0 Sodium 130 L Potassium 3.1 L Chloride 88 L Carbon Dioxide 29 Anion Gap 16 BUN 18 Creatinine 0.9 Est GFR ( Amer) > 60 Est GFR (Non-Af Amer) > 60 POC Glucose (mg/dL) Random Glucose 167 H Hemoglobin A1c Lactic Acid Calcium 8.5 Phosphorus 3.4 Magnesium 1.9 Total Bilirubin 1.4 H AST 50 ALT 45 Alkaline Phosphatase 91 Lactate Dehydrogenase Total Creatine Kinase 77 Troponin I < 0.01 Total Protein 8.8 H Albumin 4.2 Globulin 4.6 Albumin/Globulin Ratio 0.9 L Triglycerides 57 Cholesterol 144 LDL Cholesterol Direct 77 HDL Cholesterol 48 Procalcitonin TSH 3rd Generation Venous Blood Potassium 12/17/16 12/17/16 12/17/16 05:50 05:50 05:50 WBC RBC Hgb Hct MCV MCH MCHC RDW Plt Count MPV Neutrophils % (Manual) Band Neutrophils % Lymphocytes % (Manual) Monocytes % (Manual) Platelet Evaluation Polychromasia Anisocytosis (manual) pCO2 pO2 HCO3 ABG pH ABG Total CO2 ABG O2 Saturation ABG O2 Content ABG Base Excess ABG Hemoglobin ABG Carboxyhemoglobin POC ABG HHb (Measured) ABG Methemoglobin ABG O2 Capacity VBG pH VBG pCO2 VBG HCO3 VBG Total CO2 VBG O2 Sat (Calc) VBG Base Excess VBG Potassium Hgb O2 Saturation Glucose Lactate FiO2 Sodium Potassium Chloride Carbon Dioxide Anion Gap BUN Creatinine Est GFR ( Amer) Est GFR (Non-Af Amer) POC Glucose (mg/dL) Random Glucose Hemoglobin A1c 5.6 Lactic Acid Calcium Phosphorus Magnesium Total Bilirubin AST ALT Alkaline Phosphatase Lactate Dehydrogenase Total Creatine Kinase Troponin I Total Protein Albumin Globulin Albumin/Globulin Ratio Triglycerides Cholesterol LDL Cholesterol Direct HDL Cholesterol Procalcitonin < 0.05 L TSH 3rd Generation 1.47 Venous Blood Potassium 12/17/16 12/17/16 12/17/16 05:50 06:30 07:33 WBC RBC Hgb Hct MCV MCH MCHC RDW Plt Count MPV Neutrophils % (Manual) Band Neutrophils % Lymphocytes % (Manual) Monocytes % (Manual) Platelet Evaluation Polychromasia Anisocytosis (manual) pCO2 pO2 79 H HCO3 ABG pH ABG Total CO2 ABG O2 Saturation ABG O2 Content ABG Base Excess ABG Hemoglobin ABG Carboxyhemoglobin POC ABG HHb (Measured) ABG Methemoglobin ABG O2 Capacity VBG pH 7.43 VBG pCO2 46.0 VBG HCO3 30.5 H VBG Total CO2 31.9 H VBG O2 Sat (Calc) 98.3 H VBG Base Excess 5.3 H VBG Potassium 3.1 L Hgb O2 Saturation Glucose 173 H Lactate 1.8 FiO2 21.0 Sodium 130.0 L Potassium Chloride 93.0 L Carbon Dioxide Anion Gap BUN Creatinine Est GFR ( Amer) Est GFR (Non-Af Amer) POC Glucose (mg/dL) 188 H Random Glucose Hemoglobin A1c Lactic Acid 1.7 Calcium Phosphorus Magnesium Total Bilirubin AST ALT Alkaline Phosphatase Lactate Dehydrogenase Total Creatine Kinase Troponin I Total Protein Albumin Globulin Albumin/Globulin Ratio Triglycerides Cholesterol LDL Cholesterol Direct HDL Cholesterol Procalcitonin TSH 3rd Generation Venous Blood Potassium 3.1 L 12/17/16 12/17/16 12/17/16 10:00 11:27 14:45 WBC RBC Hgb Hct MCV MCH MCHC RDW Plt Count MPV Neutrophils % (Manual) Band Neutrophils % Lymphocytes % (Manual) Monocytes % (Manual) Platelet Evaluation Polychromasia Anisocytosis (manual) pCO2 pO2 HCO3 ABG pH ABG Total CO2 ABG O2 Saturation ABG O2 Content ABG Base Excess ABG Hemoglobin ABG Carboxyhemoglobin POC ABG HHb (Measured) ABG Methemoglobin ABG O2 Capacity VBG pH VBG pCO2 VBG HCO3 VBG Total CO2 VBG O2 Sat (Calc) VBG Base Excess VBG Potassium Hgb O2 Saturation Glucose Lactate FiO2 Sodium Potassium 4.2 Chloride Carbon Dioxide Anion Gap BUN Creatinine Est GFR ( Amer) Est GFR (Non-Af Amer) POC Glucose (mg/dL) 292 H Random Glucose Hemoglobin A1c Lactic Acid Calcium Phosphorus Magnesium Total Bilirubin AST ALT Alkaline Phosphatase Lactate Dehydrogenase 406 443 Total Creatine Kinase 65 56 Troponin I < 0.01 < 0.01 Total Protein Albumin Globulin Albumin/Globulin Ratio Triglycerides Cholesterol LDL Cholesterol Direct HDL Cholesterol Procalcitonin TSH 3rd Generation Venous Blood Potassium 12/17/16 16:52 WBC RBC Hgb Hct MCV MCH MCHC RDW Plt Count MPV Neutrophils % (Manual) Band Neutrophils % Lymphocytes % (Manual) Monocytes % (Manual) Platelet Evaluation Polychromasia Anisocytosis (manual) pCO2 pO2 HCO3 ABG pH ABG Total CO2 ABG O2 Saturation ABG O2 Content ABG Base Excess ABG Hemoglobin ABG Carboxyhemoglobin POC ABG HHb (Measured) ABG Methemoglobin ABG O2 Capacity VBG pH VBG pCO2 VBG HCO3 VBG Total CO2 VBG O2 Sat (Calc) VBG Base Excess VBG Potassium Hgb O2 Saturation Glucose Lactate FiO2 Sodium Potassium Chloride Carbon Dioxide Anion Gap BUN Creatinine Est GFR ( Amer) Est GFR (Non-Af Amer) POC Glucose (mg/dL) 212 H Random Glucose Hemoglobin A1c Lactic Acid Calcium Phosphorus Magnesium Total Bilirubin AST ALT Alkaline Phosphatase Lactate Dehydrogenase Total Creatine Kinase Troponin I Total Protein Albumin Globulin Albumin/Globulin Ratio Triglycerides Cholesterol LDL Cholesterol Direct HDL Cholesterol Procalcitonin TSH 3rd Generation Venous Blood Potassium EKG/Cardiology Studies: Cardiology / EKG Studies 12/17/16 08:00 ELECTROCARDIOGRAM Q8H Comment: Reason For Exam: rule out acute ischemia 12/17/16 16:00 ELECTROCARDIOGRAM Q8H Comment: Reason For Exam: rule out acute ischemia Critical Care Progress Note - Nutrition Nutrition: Nutrition Category Date Time Status Heart Healthy Diet [DIET] Diets 12/17/16 Breakfast Ordered Attending/Attestation - Attestation I have personally seen and examined this patient.: Yes I have fully participated in the care of the patient.: Yes I have reviewed all pertinent clinical information: Yes Notes (Text): 12/17/16 18:57 56 y/o M w/ CHF exacerbation and A.FIB RVR Was given Lasix, fluid control B blockers were started, asprin, LARY I BIPAP overnight to help with WOB. Also plans for BIPAP as need for night, due to JOSELINE. The patient has been seen by cardiology for possible cardiac cath in the near future. Currently chest pain free. dvt p Heparin sq tid cc time 55 min
[2016-12-17] MEDS: MethylPREDNISolone 40 mg Vial IVP SCH ×2 (17:31→22:20)
--- NOTE | 2016-12-17 17:41 | CARD ---
APPROVED REPORT EXAM: Two-dimensional and M-mode echocardiogram with Doppler and color Doppler. INDICATION CP/LVFX/PULMONARY HTN 2D DIMENSIONS IVSd1.3 (0.7-1.1cm)LVDd6.0 (3.9-5.9cm) PWd1.4 (0.7-1.1cm) M-Mode DIMENSIONS Aortic Root3.50 (2.2-3.7cm)Aortic Cusp Exc.1.90 (1.5-2.0cm) Aortic Valve AoV Peak Tubmikal664.0cm/Terrance Peak GR.7mmHg Mitral Valve E/A ratio0.0 TDI E/Lateral E'0.0E/Medial E'0.0 Pulmonary Valve PV Peak Vdpihvzs40.3cm/sPV Peak Grad.1mmHg Tricuspid Valve TR Peak [id number] [id number] Peak Gr.19mmHg [id number] LEFT VENTRICLE The Left Ventricle is mildly dilated. There is mild to moderate concentric left ventricular hypertrophy. The left ventricular function is normal.EF-55% There is normal LV segmental wall motion. A Fib No left ventricle thrombus noted on this study. There is no ventricular septal defect visualized. There is no left ventricular aneurysm. There is no mass noted in the left ventricle. RIGHT VENTRICLE The right ventricle is moderately dilated. The right ventricle is mildly hypertrophied. Systolic function of RV is moderately reduced. ATRIA The left atrium is mildly dilated. The right atrium is moderately dilated. The interatrial septum is intact with no evidence for an atrial septal defect. AORTIC VALVE The aortic valve is thickened but opens well. The aortic valve is moderately sclerotic. There is trace to mild aortic regurgitation. There is no aortic valvular stenosis. There is no aortic valvular vegetation. MITRAL VALVE The mitral valve is thickened but opens well. Mitral regurgitation is trace. There is no mitral valve stenosis. There is no evidence of mitral valve prolapse. TRICUSPID VALVE The tricuspid valve leaflets are thickened , but open well. There is mild tricuspid regurgitation.RVSP-22 mmof Hg. There is no tricuspid valve stenosis. There is no tricuspid valve prolapse or vegetation. PULMONIC VALVE The pulmonic valve is not well visualized. GREAT VESSELS The aortic root is normal in size. The ascending aorta is normal in size. The ascending aorta is normal in size. The pulmonary artery is normal. The IVC is dilated. PERICARDIAL EFFUSION There is no pleural effusion. Trivial <Conclusion> The Left Ventricle is mildly dilated. There is mild to moderate concentric left ventricular hypertrophy. The left ventricular function is normal.EF-55% The right ventricle is moderately dilated. Systolic function of RV is moderately reduced. There is trace to mild aortic regurgitation. Mitral regurgitation is trace. There is mild tricuspid regurgitation.RVSP-22 mmof Hg. The IVC is dilated. TDS secondary to increased body Habitus>340 lbs wt.Poor sonic window. Suggest MUGA to Assess LV and RV EF%
--- NOTE | 2016-12-17 19:45 | US ---
HISTORY: Leg pain and swelling. Evaluate for DVT PHYSICIAN(S): Jori Alejandra MD. TECHNIQUE: Duplex sonography and color-flow Doppler with graded compression were used to evaluate the deep venous systems of both lower extremities. The exam is extremely limited by body habitus and edema. The lower femoral veins and tibial veins are not adequately seen. FINDINGS: The visualized deep venous systems of both lower extremities are sonographically normal and compressible. Normal wave forms and augmentation are seen. There is no sonographic evidence for deep venous thrombosis in the visualized segments of both lower extremities. IMPRESSION: No sonographic evidence for deep venous thrombosis in the visualized segments of both lower extremities. Very limited study
[2016-12-17] MEDS ORDERED: Oxycodone/Acetaminophen 10/325 mg Tab PO STA (21:22)
--- NOTE | 2016-12-17 21:23 | CP.PCM.PN ---
Subjective - Date & Time of Evaluation Date of Evaluation: 12/17/16 Time of Evaluation: 21:23 - Subjective Subjective: Patient was seen because he requested pain medication for frontal tooth ache, chest soreness and both legs pain. He has bee on morphine that does not help him as per him. States that he has been on percocet 10/325 , which helps him. Also requests something for sleep. States that he is on Xanax 1 mg two times a day if needed. Has no other acute symptoms now. This 56 year old white male was admitted with substernal chest pain,diaphoresis , sob. Has PMH of NIDDM,PAF,Chronic stasis ulcer, CAD-non obstructive, JOSELINE,HTN, COPD. Objective - Vital Signs/Intake and Output Vital Signs (last 24 hours): Temp Pulse Resp BP Pulse Ox 98.4 F 88 17 141/76 96 12/17/16 16:00 12/17/16 17:31 12/17/16 17:31 12/17/16 17:31 12/17/16 17:31 Intake and Output: 12/17/16 12/18/16 18:59 06:59 Intake Total 1000 Output Total 1350 Balance -350 - Medications Medications: Current Medications Acetaminophen (Tylenol 325mg Tab) 650 mg PO Q6H PRN PRN Reason: Pain, Mild (1-3) Aspirin (Aspirin Chewable) 81 mg PO DAILY [facility] Last Admin: 12/17/16 10:37 Dose: Not Given Atorvastatin Calcium (Lipitor) 80 mg PO DIN [facility] Last Admin: 12/17/16 17:33 Dose: 80 mg Dabigatran (Pradaxa) 150 mg PO BID [facility] PRN Reason: Protocol Diltiazem HCl (Cardizem Cd) 180 mg PO DAILY [facility] Last Admin: 12/17/16 11:59 Dose: 180 mg Furosemide (Lasix) 40 mg IVP DAILY [facility] Insulin Human Lispro (Humalog Low) 0 units SC ACHS [facility] PRN Reason: Protocol Last Admin: 12/17/16 17:33 Dose: 2 units Ipratropium [place] (Atrovent) 0.5 mg IH Q4H [facility] Last Admin: 12/17/16 14:26 Dose: 0.5 mg Ipratropium [place] (Atrovent) 0.5 mg IH Q2H PRN PRN Reason: Shortness of Breath Last Admin: 12/17/16 14:25 Dose: 0.5 mg Levalbuterol HCl (Xopenex) 1.25 mg IH Q4H [facility] Last Admin: 12/17/16 14:26 Dose: 1.25 mg Levalbuterol HCl (Xopenex) 1.25 mg IH Q2H PRN PRN Reason: Shortness of Breath Methylprednisolone (Solu-Medrol) 40 mg IVP Q8 [facility] Last Admin: 12/17/16 17:31 Dose: 40 mg Metoprolol Tartrate (Lopressor) 25 mg PO BID [facility] Last Admin: 12/17/16 17:31 Dose: 25 mg Morphine Sulfate (Morphine) 2 mg IVP Q4H PRN PRN Reason: Pain, severe (8-10) Last Admin: 12/17/16 08:19 Dose: 2 mg Ondansetron HCl (Zofran Inj) 4 mg IVP Q6H PRN PRN Reason: Nausea/Vomiting Pantoprazole Sodium (Protonix Inj) 40 mg IVP DAILY [facility] Last Admin: 12/17/16 10:38 Dose: Not Given Potassium Chloride (Klor-Con 10) 10 meq PO DAILY [facility] Last Admin: 12/17/16 10:38 Dose: Not Given - Labs Labs: 12/17/16 05:50 12/17/16 14:45 - Constitutional Appears: Well, No Acute Distress - Head Exam Head Exam: ATRAUMATIC, NORMAL INSPECTION, NORMOCEPHALIC Additional comments: Obese person. - Eye Exam Eye Exam: Normal appearance - ENT Exam ENT Exam: Normal External Ear Exam - Neck Exam Neck Exam: Normal Inspection - Respiratory Exam Respiratory Exam: NORMAL BREATHING PATTERN - Cardiovascular Exam Cardiovascular Exam: absent: JVD - GI/Abdominal Exam GI & Abdominal Exam: absent: Distended - Rectal Exam Rectal Exam: Deferred - Extremities Exam Additional comments: Both legs have dressing on. - Back Exam Back Exam: NORMAL INSPECTION - Neurological Exam Neurological Exam: Alert, Oriented x3 - Psychiatric Exam Psychiatric exam: Normal Affect, Normal Mood - Skin Skin Exam: Normal Color Assessment and Plan - Assessment and Plan (Free Text) Assessment: A/P: Tooth ache. Soreness of chest . Bilateral legs pain. HTN. CAD. COPD. JOSELINE. Anxiety. Insomnia. Percocet 325/10 I PO STAT. Xanax 1 mg PO STAT.
[2016-12-17 22:30] LABS: TROPONIN I < 0.01 ng/mL
[2016-12-18] MEDS: Ipratropium 0.02% Inhal Soln (0.5 mg/2.5 ml) UD IH SCH ×7 (00:20→19:35)
[2016-12-18] MEDS: Levalbuterol 1.25 MG/3 ML Inhal Soln UD IH SCH ×8 (00:20→19:43)
[2016-12-18] MEDS: MethylPREDNISolone 40 mg Vial IVP SCH ×3 (05:29→22:03)
[2016-12-18 06:18] LABS: ADD MANUAL DIFF? NO
[2016-12-18 06:23] LABS: BASO # 0.01 K/mm3 (0.0-2.0); BASO % 0.1 % (0.0-3.0); GRAN # 11.48 (1.4-6.5); GRAN % 90.3 % (50.0-68.0); HEMATOCRIT 34.3 % (42.0-52.0); LYMPH # 0.6 (1.2-3.4); MEAN CORPUSCULAR HGB CONC 34.1 g/dl (31.0-37.0); MEAN PLATELET VOLUME 8.7 fl (7.0-11.0); MONO # 0.6 (0.1-0.6); MONO % 4.6 % (1.0-6.0); PLATELET COUNT 254 10^3/uL (120.0-450.0); RED CELL DISTRIBUTION WIDTH 16.6 % (11.5-14.5); WHITE BLOOD COUNT 12.7 10^3/ul (4.5-11.0)
[2016-12-18 06:31] LABS: ALKALINE PHOSPHATASE 64 U/L (38-133); ALT/SGPT 41 U/L (7-56); AST/SGOT 28 U/L (15-59); BLOOD UREA NITROGEN 26 mg/dL (7-21); CALCIUM 8.8 mg/dL (8.4-10.5); CARBON DIOXIDE 27 mmol/L (21-33); CHLORIDE 91 mmol/L (98-107); CHOLESTEROL 148 mg/dL (130-200); GFR AFRICAN-AMERICAN > 60; GLUCOSE,RANDOM 225 mg/dL (70-110); MAGNESIUM 2.3 mg/dL (1.7-2.2); PHOSPHOROUS 3.4 mg/dL (2.5-4.5); POTASSIUM 3.7 mmol/L (3.6-5.0); SODIUM 129 mmol/L (132-148); TOTAL PROTEIN 8.3 g/dL (5.8-8.3)
[2016-12-18] MEDS: Insulin Lispro (humaLOG) LOW Coverage SC SCH ×4 (07:56→21:54)
[2016-12-18] MEDS: diltiaZEM 180 mg/24 Hours CD Cap PO SCH (09:33)
[2016-12-18] MEDS: Potassium Chloride 10 mEq ER Tab PO SCH (09:34)
--- NOTE | 2016-12-18 10:01 | PN ---
DATE: 12/18/2016 SUBJECTIVE: The patient is sitting up in bed in no acute distress. He denies any chest pain or shor tness of breath. OBJECTIVE: VITAL SIGNS: Blood pressure 131/76, pulse 110-120 and irregular, respiratory rate 20. The patient i s afebrile. LUNGS: Show a few bibasilar crackles. HEART: Irregularly irregular, slightly tachycardic. ABDOMEN: Soft, obese, nontender. Bowel sounds are normoactive. EXTREMITIES: With 3+ to 4+ brawny edema of the lower extremities bilaterally. Wound dressings are i ntact with no significant drainage. NEUROLOGIC: The patient is awake and oriented x 3 without focal sensory or motor deficits. SKIN: Warm and dry. LABORATORY DATA: WBC is 12.7, hemoglobin 11.7, hematocrit 34.3. Sodium 129, potassium 3.7, chloride 91, CO2 of 27, BUN 26, creatinine 0.9, glucose 225. IMPRESSION: 1. Hypertension, hypertensive cardiovascular disease and congestive heart failure. 2. Hyponatremia secondary to #1. 3. Paroxysmal atrial fibrillation. 4. Chronic obstructive pulmonary disease. 5. Obstructive sleep apnea. 6. Nonobstructive coronary artery disease. 7. Type 2 diabetes mellitus with morbid obesity and diabetic neuropathy. 8. Chronic venous insufficiency of the lower extremities with chronic venous stasis ulcers and recur rent cellulitis. PLAN: The patient is currently being monitored in the ICU. He is medically stable for transfer to t elemetry unit. Monitor electrolytes. Continue cardiology followup with Dr. Vargas. Physical therapy and social work for discharge planning. Matthew Leiva JD, MD cc: [id number] TT: 12/18/2016 10:00:18 Confirmation # [id number] Dictation # [id number] lavern
[2016-12-18] MEDS: Oxycodone/Acetaminophen 10/325 mg Tab PO PRN ×3 (10:29→22:03)
--- NOTE | 2016-12-18 12:10 | PN ---
DATE: 12/18/2016 REASON FOR CONSULTATION AND FOLLOWUP: Chest pain, atrial fibrillation, morbid obesity, nonobstructiv e coronary artery disease. BRIEF CLINICAL HISTORY: This is a 56-year-old morbidly obese male with a past medical history of chr onic venous stasis, hypertension, hyperlipidemia, chronic atrial fibrillation, chronic venous stasis, obstructive sleep apnea, noncompliance with medication. Admitted with AFib with rapid ventricular r ate. Currently, patient is in ICU. The rate is well controlled. The patient underwent echocardiogr aphy done yesterday, which shows preserved LV function. PHYSICAL EXAMINATION: As follows: VITAL SIGNS: Temperature afebrile, heart rate 78, blood pressure 130/76. HEENT: PERRLA, intact. NECK: Supple. No carotid bruits. No thyromegaly. CHEST: Clear to auscultation. HEART: S1, S2 regular. ABDOMEN: Soft. EXTREMITIES: Clubbing and cyanosis negative. BLOOD WORKUP: As follows: WBC 12.7, hemoglobin ____, hematocrit 34.3, platelet count 254. Chemistr y shows sodium 129, potassium 3.7, chloride 91, carbon dioxide 27, anion gap of 15, BUN 26, creatinin e 0.9. Troponin 0.01. IMPRESSION: No evidence of acute coronary syndrome. No evidence of acute myocardial infarction. Ch ronic obstructive pulmonary disease exacerbation, morbid obesity, congestive heart failure, atrial fi brillation with rapid ventricular rate. The patient underwent echocardiography done, was a technical ly difficult study because of morbid obesity, body mass index 46 kg, body weight more than 340 pounds , that shows a trace mitral regurgitation, [id number] aortic regurgitation, ejection fraction 55%. MUGA suggested. RECOMMENDATION: Continue Cardizem-CD, started 180 mg today. Continue with IV Lasix. Continue atorv astatin. Continue p.r.n. Atrovent. Continue beta neri. Transferred to tele. We will follow charli morgan. Thank you, Dr. Leiva, for providing the opportunity in taking care of the patient. Jalen Vargas MD cc: [id number] TT: 12/18/2016 12:10:22 Confirmation # [id number] Dictation # [id number] sn
--- NOTE | 2016-12-18 16:55 | CARD ---
APPROVED REPORT INDICATION Congestive Heart Failure EVALUATE LV AND RV EF PROCEDURE The above named patient recieved 30 millicuries of Tc99m tagged red blood cells intravenously. After achieving equilibrium, gated imaging of 16/frame/cycle was performed utillizing Gamma camera interfaced with a digital computer and gated device. Gated imaging was then performed in the left anterior oblique, anterior, and the left lateral projections. Findings Left Ventricle: The quality of the study is good. The left ventricle is within normal limits in size. The right ventricle is mildly dilated in size. Wall motion study shows good contractility of the left ventricle. RV wall motion is normal. The right atrium is dynamic.. The remainder of the study is unremarkable. Impressions Normal gated wall motion of left ventricle wall. LVEF = 64%. Normal RV wall motion.
--- NOTE | 2016-12-18 22:59 | CARD ---
APPROVED REPORT EKG Measurement Heart [id number] <Conclusion> Atrial fibrillation Abnormal ECG
[2016-12-19] MEDS: Ipratropium 0.02% Inhal Soln (0.5 mg/2.5 ml) UD IH SCH ×5 (00:42→20:00)
[2016-12-19] MEDS: Levalbuterol 1.25 MG/3 ML Inhal Soln UD IH SCH ×5 (00:44→20:00)
[2016-12-19] MEDS: Oxycodone/Acetaminophen 10/325 mg Tab PO PRN ×3 (03:34→22:21)
[2016-12-19] MEDS: MethylPREDNISolone 40 mg Vial IVP SCH ×3 (05:55→21:56)
[2016-12-19] MEDS: Insulin Lispro (humaLOG) LOW Coverage SC SCH ×4 (07:30→22:11)
[2016-12-19] MEDS: Pantoprazole 40 mg EC Tab PO SCH (08:22)
--- NOTE | 2016-12-19 10:12 | PN ---
DATE: 12/19/2016 REASON FOR CONSULTATION AND FOLLOWUP: Chest pain, atrial fibrillation, morbid obesity, nonobstructiv e coronary artery disease. BRIEF CLINICAL HISTORY: This is a 56-year-old morbidly obese male with past medical history signific ant for chronic venous stasis, hypertension, hyperlipidemia, chronic atrial fibrillation, chronic russ ous stasis, obstructive sleep apnea, noncompliance with medication, admitted with AFib with rapid russ tricular rate. Currently, the patient is in ICU. Echocardiography underwent shows preserved LV func tion, suboptimal study. Yesterday underwent MUGA scan that shows preserved LV function. PHYSICAL EXAMINATION: VITAL SIGNS: Temperature afebrile, heart rate 90, blood pressure 170/77. HEENT: PERRLA. Extraocular muscles intact. NECK: Supple. No carotid bruits. No thyromegaly. CHEST: Clear to auscultation. HEART: S1, S2 regular. ABDOMEN: Soft. EXTREMITIES: Clubbing and cyanosis negative. BLOOD WORKUP: WBC 12.____, hemoglobin 11.3, hematocrit 34.3, platelet count 254. Chemistry shows so dium 129, potassium 3.7, chloride 91, carbon dioxide 27, anion gap of 15, BUN 26, creatinine 0.9. Fa sting blood sugar 248. IMPRESSION: Morbid obesity, body mass index 47 kg/m2, more than 340 pounds weight; uncontrolled diab etes, hypertension, hyperlipidemia; chronic atrial fibrillation, now rate is well controlled; chronic obstructive pulmonary disease, obstructive sleep apnea. Echocardiogram showed yesterday suboptimal study but preserved left ventricular function, so patient underwent MUGA scan. MUGA scan showed norm al right ventricular function, left ventricular function preserved at 64%. No evidence of acute amaya nary syndrome, no evidence of myocardial infarction. History of cardiac catheterization 05/12/2014 t hat shows nonobstructive coronary artery disease, ejection fraction 65%, diffuse distal left anterior descending disease, no focal stenosis. Repeat echocardiography done yesterday that was suboptimal s tudy, trace mitral regurgitation, mild tricuspid regurgitation, right ventricular systolic pressure 2 7, ejection fraction 55% noted. RECOMMENDATION: Continue aspirin. Continue Cardizem-CD 180; will increase today to 240. Continue l ow-dose beta-neri. Continue Pradaxa. Transfer to tele. Will follow with you. Thank you, Dr. Leiva, for providing the opportunity in taking care of the patient. Emphasis made on compliance with the medication. Will follow with you. Will increase Cardizem to 240 to control the heart rate and blood pressure. Will follow with you. Repeat the blood workup in the morning. The patient does not need DVT prophylaxis. The patient is on Pradaxa. Jalen Vargas MD cc: [id number] TT: 12/19/2016 10:11:54 Confirmation # [id number] Dictation # [id number] mn
[2016-12-19] MEDS: diltiaZEM 240 mg/24 Hours CD Cap PO SCH (11:02)
[2016-12-19] MEDS: Potassium Chloride 10 mEq ER Tab PO SCH (11:03)
--- NOTE | 2016-12-19 13:15 | PN ---
DATE: 12/19/2016 SUBJECTIVE: The patient is lying in bed in no acute distress. He denies any chest pain or shortness of breath. OBJECTIVE: VITAL SIGNS: Blood pressure 148/61, pulse 90, respiratory rate 20. The patient is afebrile. LUNGS: Show a few bibasilar rales. HEART: Irregularly irregular. ABDOMEN: Soft, nontender. Bowel sounds are normoactive. EXTREMITIES: With 3-4+ brawny edema of the lower extremities bilaterally. Wound dressings are intac t. NEUROLOGIC: The patient is awake and oriented x 3 without focal, sensory, or motor deficits. SKIN: Warm and dry. IMPRESSION: 1. Hypertension, hypertensive cardiovascular disease, and congestive heart failure. 2. Hyponatremia secondary to #1. 3. Tachycardia paroxysmal atrial fibrillation. 4. Chronic obstructive pulmonary disease. 5. Obstructive sleep apnea. 6. Nonobstructive coronary artery disease. 7. Type 2 diabetes mellitus with morbid obesity and diabetic neuropathy. 8. Chronic venous insufficiency of the lower extremities with chronic venous stasis ulcers were recu rrent cellulitis. PLAN: The patient is medically stable for transfer to telemetry. Continue cardiology followup with Dr. Vargas. Obtain podiatry consultation for wound care with Dr. Meadows. Physical therapy and social work for discharge planning. Matthew Leiva JD, MD cc: 353 TT: 12/19/2016 13:14:48 Confirmation # [id number] Dictation # [id number] keysha
--- NOTE | 2016-12-19 17:57 | PN ---
DATE: 12/19/2016 This is a 56-year-old morbidly obese male, known to me, seen for bilateral lower extremity edema. Th e patient has a history of having lower extremity ulcerations bilateral on and off for the last sever al years. The wounds had gone on to heal several weeks ago and patient states that they have remaine d healed at this time. He states he was brought to the Emergency Room because of severe chest pain. PAST MEDICAL HISTORY: Positive for diabetes, COPD, hypertension, AFib, congestive heart failure and obstructive sleep apnea. The patient was seen in the ICU. He is alert and oriented. VITAL SIGNS: Reviewed. His temperature is 97.6, his pulse was 94, blood pressure is 108/56 and the oxygen sat was 94%. MEDICATIONS: Noted on the OCT. ALLERGIES: He has no known drug allergies. LABORATORIES: Show a white blood cell count of 12.7, his H and H is 11.7 and 34.3 and platelets are 254. Blood gases show elevated VBG pCO2 yesterday; however, today it is back down to normal. His ch emistry shows a glucose of 225, BUN and creatinine is 26 and 0.9. PHYSICAL EXAMINATION: EXTREMITIES: The patient's lower extremities were evaluated. There is no gross pitting edema at thi s time. His neurovascular status is unchanged. He does have palpable pedal pulses. He has had ABIs done in the past and they were within normal limits. He also had a recent venous Doppler and that w as negative for any signs of DVT. The patient's wounds remain heeled at this time. There is no weep ing. There is no redness. There is, however, secondary scaling. ASSESSMENT: A diabetic with history of chronic stasis disease with ulcerations, resolved. PLAN OF TREATMENT: We will order Lac-Hydrin lotion. He does have Tubigrip stockings, which he has b eemarlo using to help control some of the edema. He is well educated in leg elevation and walking. The patient will be seen and followed as needed. Jolene Meadows DPM cc: [id number] TT: 12/19/2016 17:55:52 Confirmation # [id number] Dictation # [id number] en
[2016-12-20] MEDS: MethylPREDNISolone 40 mg Vial IVP SCH ×2 (06:10→21:47)
[2016-12-20 06:27] LABS: ADD MANUAL DIFF? NO
[2016-12-20 06:38] LABS: GRAN # 8.25 (1.4-6.5); GRAN % 86.7 % (50.0-68.0); HEMATOCRIT 35.8 % (42.0-52.0); LYMPH # 0.6 (1.2-3.4); LYMPH % 6.1 % (22.0-35.0); MEAN CELL VOLUME 92.7 fL (80.0-105.0); MEAN CORPUSCULAR HEMOGLOBIN 30.3 pg (25.0-35.0); MEAN CORPUSCULAR HGB CONC 32.7 g/dl (31.0-37.0); MEAN PLATELET VOLUME 8.9 fl (7.0-11.0); MONO # 0.7 (0.1-0.6); MONO % 7.2 % (1.0-6.0); PLATELET COUNT 294 10^3/uL (120.0-450.0); RED CELL DISTRIBUTION WIDTH 16.6 % (11.5-14.5); WHITE BLOOD COUNT 9.5 10^3/ul (4.5-11.0)
[2016-12-20 07:08] LABS: ALKALINE PHOSPHATASE 54 U/L (38-133); ALT/SGPT 50 U/L (7-56); AST/SGOT 43 U/L (15-59); BILIRUBIN,TOTAL 0.7 mg/dL (0.2-1.3); BLOOD UREA NITROGEN 37 mg/dL (7-21); CALCIUM 8.8 mg/dL (8.4-10.5); CARBON DIOXIDE 33 mmol/L (21-33); CHLORIDE 90 mmol/L (98-107); GFR AFRICAN-AMERICAN > 60; GLUCOSE,RANDOM 164 mg/dL (70-110); MAGNESIUM 2.5 mg/dL (1.7-2.2); PHOSPHOROUS 3.7 mg/dL (2.5-4.5); POTASSIUM 3.5 mmol/L (3.6-5.0); SODIUM 135 mmol/L (132-148); TOTAL PROTEIN 8.2 g/dL (5.8-8.3)
[2016-12-20] MEDS: Levalbuterol 1.25 MG/3 ML Inhal Soln UD IH SCH ×4 (07:10→22:44)
[2016-12-20] MEDS: Ipratropium 0.02% Inhal Soln (0.5 mg/2.5 ml) UD IH SCH ×4 (07:10→22:44)
[2016-12-20] MEDS: Insulin Lispro (humaLOG) LOW Coverage SC SCH ×4 (07:40→21:59)
[2016-12-20] MEDS: Pantoprazole 40 mg EC Tab PO SCH (07:40)
[2016-12-20] MEDS: Oxycodone/Acetaminophen 10/325 mg Tab PO PRN ×2 (07:41→18:28)
[2016-12-20] MEDS: diltiaZEM 240 mg/24 Hours CD Cap PO SCH (09:10)
[2016-12-20] MEDS: Potassium Chloride 10 mEq ER Tab PO SCH (09:10)
[2016-12-20] MEDS ORDERED: Ammonium Lactate 12% Cream (140 g) TOP SCH (10:00)
[2016-12-20 12:21] VITALS: O2SAT 95
--- NOTE | 2016-12-20 14:08 | PN ---
DATE: 12/20/2016 SUBJECTIVE: The patient is lying in bed, in no acute distress. He denies any chest pain or shortnes s of breath. OBJECTIVE: VITAL SIGNS: Blood pressure 150/82, temperature 97.4, pulse 105, respiratory rate 20. LUNGS: Clear. HEART: Irregularly irregular, slightly tachycardic. ABDOMEN: Soft, nontender, bowel sounds are normoactive. EXTREMITIES: With 3-4+ brawny edema of the lower extremities to the calves bilaterally. Wound dress ings are intact. NEUROLOGIC: The patient is awake and oriented x 3 without focal, sensory or motor deficits. SKIN: Warm and dry. LABORATORY DATA: WBCs 9.5, hemoglobin 11.7, hematocrit 35.8. Sodium 135, potassium 3.5, chloride 90 , CO2 33, BUN 37, creatinine 0.9, glucose 164. IMPRESSION: 1. Hypertension, hypertensive cardiovascular disease and congestive heart failure. 2. Hyponatremia, improved. 3. Paroxysmal atrial fibrillation with controlled to rapid ventricular response. 4. Chronic obstructive pulmonary disease. 5. Obstructive sleep apnea. 6. Nonobstructive coronary artery disease. 7. Type 2 diabetes mellitus with morbid obesity and diabetic neuropathy. 8. Chronic venous insufficiency of the lower extremities with chronic venous stasis ulcers and recur rent cellulitis. PLAN: The patient is stable for transfer to telemetry. Continue cardiology followup with Dr. Sam sherman nd podiatry consultation with Dr. Meadows for wound care. Physical therapy and social work for disch arge planning. Monitor electrolytes. Matthew Leiva JD, MD cc: 353 TT: 12/20/2016 14:07:51 Confirmation # [id number] Dictation # [id number] en
[2016-12-20] MEDS ORDERED: Potassium Chloride 20 mEq ER Tab PO ONE (14:39)
--- NOTE | 2016-12-20 15:11 | PN ---
DATE: 12/20/2016 REASON FOR CONSULTATION AND FOLLOWUP: Atrial fibrillation, morbid obesity, nonobstructive coronary a rtery disease, decompensated congestive heart failure. BRIEF CLINICAL HISTORY: A 56-year-old morbidly obese male with a past medical history significant fo r chronic venous stasis, hypertension, hyperlipidemia, chronic atrial fibrillation, chronic venous st asis, obstructive sleep apnea, noncompliance with medication, AFib with rapid ventricular rate. The patient had a repeat echo done, shows preserved LV function. Yesterday, MUGA scan done that shows pr eserved LV function. PHYSICAL EXAMINATION: VITAL SIGNS: Temperature afebrile, heart rate 108, blood pressure 150/82. HEENT: PERRLA. Extraocular muscles intact. NECK: Supple. No carotid bruits. No thyromegaly. CHEST: Clear to auscultation. HEART: S1, S2 regular. ABDOMEN: Soft. EXTREMITIES: Clubbing, cyanosis negative. BLOOD WORKUP: WBC 9. , hemoglobin 11. , hematocrit 35.8, platelet count 294. Chemistry show s sodium 135, potassium 3.5, chloride , carbon dioxide 33, anion gap of 16, BUN 37, creatinine 0 .9. IMPRESSION: Hypokalemia, morbid obesity, body mass index 46 kg per meters squared, weight 342 pounds , diabetes, hypertension, hyperlipidemia, chronic atrial fibrillation. Echo done yesterday, suboptim al study, but shows preserved left ventricular function. Yesterday, patient underwent MUGA scan that shows ejection fraction 64%, normal right ventricular function. No evidence of acute myocardial inf arction, no evidence of unstable angina, history of cardiac catheterization 05/12/2014 that shows nono bstructive coronary artery disease, 65% ejection fraction. As mentioned, repeat echo yesterday shows suboptimal study with mild tricuspid regurgitation, trace to mild mitral regurgitation, right ventri cular systolic pressure 27. RECOMMENDATION: Continue Cardizem. Increase beta neri. Continue Pradaxa. If remains stable, we will discontinue telemetry tomorrow. Thank you, Dr. Leiva, for providing us the opportunity in taking care of the patient. Jalen Vargas MD cc:Matthew Leiva JD, MD 305 TT: 12/20/2016 15:10:53 Confirmation # [id number] Dictation # [id number] en
[2016-12-21] MEDS ORDERED: Potassium Chloride 20 mEq ER Tab PO SCH (08:00)
[2016-12-21] MEDS: Levalbuterol 1.25 MG/3 ML Inhal Soln UD IH SCH ×2 (08:09→11:22)
[2016-12-21] MEDS: Ipratropium 0.02% Inhal Soln (0.5 mg/2.5 ml) UD IH SCH ×2 (08:09→11:24)
[2016-12-21] MEDS: Pantoprazole 40 mg EC Tab PO SCH (08:34)
[2016-12-21] MEDS: Insulin Lispro (humaLOG) LOW Coverage SC SCH (08:38)
[2016-12-21] MEDS: diltiaZEM 240 mg/24 Hours CD Cap PO SCH (09:45)
[2016-12-21] MEDS: Oxycodone/Acetaminophen 10/325 mg Tab PO PRN (09:46)
[2016-12-21] MEDS: MethylPREDNISolone 40 mg Vial IVP SCH (09:51)
--- NOTE | 2016-12-21 10:10 | PN ---
DATE: 12/21/2016 REASON FOR CONSULTATION AND FOLLOWUP: Atrial fibrillation, morbid obesity, nonobstructive coronary a rtery disease, decompensated congestive heart failure. BRIEF CLINICAL HISTORY: This is a 56-year-old male, morbidly obese, with a past medical history sign ificant for chronic venous stasis, hypertension, hyperlipidemia, chronic atrial fibrillation, chronic venous stasis, obstructive sleep apnea, noncompliance with medication. Admitted with AFib with rapi d ventricular rate. Repeat echo shows preserved LV function, but technically difficult study, so pat ient underwent a MUGA scan that shows ejection fraction 64%. Denies any chest pain, shortness of mk ath, any palpitation. PHYSICAL EXAMINATION: VITAL SIGNS: Temperature afebrile, heart rate 89, blood pressure 150/96. HEENT: PERRLA. Extraocular muscles intact. NECK: Supple. No carotid bruit, no thyromegaly. CHEST: Clear to auscultation. HEART: S1, S2 regular. ABDOMEN: Soft. EXTREMITIES: Clubbing, cyanosis negative. BLOOD WORKUP: WBC 9.5, hemoglobin 11.7, hematocrit 35.8, platelet count 294. Chemistry shows sodium 135, potassium 3.5, chloride 90, carbon dioxide 33, anion gap of 16, BUN 37, creatinine 0.7 as of . IMPRESSION: Decompensated congestive heart failure, acute on chronic, secondary to diastolic dysfunc tion, atrial fibrillation with rapid ventricular rate, morbid obesity, body mass index 44.8 kg/meters squared, chronic obstructive pulmonary disease, obstructive sleep apnea, chronic atrial fibrillation , noncompliance with the medication. RECOMMENDATION: Continue Cardizem. Continue Lasix, will change to p.o. Continue beta neri. Con tinue Pradaxa for chronic atrial fibrillation. Discontinue telemetry. We will follow with you. Thank you, Dr. Leiva, for providing us the opportunity in taking care of the patient. Will change th e Lasix after today's dose to p.o. Jalen Vargas MD cc: 305 TT: 12/21/2016 10:09:01 Confirmation # [id number] Dictation # [id number] en
[2016-12-21 13:09] VITALS: BP 144/82; PULSE 91; RESP 20; TEMP 98
--- NOTE | 2016-12-21 14:25 | DS ---
HOSPITAL COURSE: The patient is a 56-year-old male admitted through the Emergency Department on 2016 to the intensive care unit in congestive heart failure. The patient was seen in consultation by Dr. Vargas of cardiology. He had an uneventful hospital course and is medically stable for discharge. He denies chest pain, shortness of breath at the present time. PHYSICAL EXAMINATION: VITAL SIGNS: Blood pressure 144/82, pulse 91, temperature 98, respiratory rate 20. LUNGS: Clear. HEART: Irregularly irregular, rate 90. ABDOMEN: Soft, nontender, obese, bowel sounds are normoactive. EXTREMITIES: With 3-4+ brawny edema of lower extremities to the calves bilaterally, chronic venous s tasis ulcer involving the left leg, dressing is intact. NEUROLOGIC: The patient is awake and oriented x 3 without focal sensory or motor deficits. SKIN: Warm and dry. IMPRESSION: 1. Hypertension, hypertensive cardiovascular disease and congestive heart failure. 2. Paroxysmal atrial fibrillation with ventricular response, now controlled. 3. Chronic obstructive pulmonary disease. 4. Obstructive sleep apnea. 5. Nonobstructive coronary artery disease. 6. Type 2 diabetes mellitus with morbid obesity and diabetic neuropathy. 7. Chronic venous insufficiency of the lower extremities with chronic venous stasis ulcers and recur rent cellulitis. PLAN: The patient will be discharged to home in stable condition on the following medications: Lasi x 20 mg twice daily, Lipitor 80 mg daily, metoprolol 50 mg twice daily, Pradaxa 150 mg twice daily, P rotonix 40 mg daily, K-Dur 20 mEq daily, Percocet 10/325 one tab q. 4 hours and Xanax 1 mg twice jm y. He will be maintained on a heart-healthy diet, activities ad libitum. He will be seen in the off [facility] for outpatient followup within the next 1-2 weeks. Matthew Leiva JD, MD cc: 353 TT: 12/21/2016 14:23:55 jeromy
--- NOTE | 2016-12-21 17:14 | PN ---
DATE: 12/21/2016 A 56-year-old morbidly obese male well known to the [facility] Wound care team, seen at [facility] for continued evaluation and management of bilateral lower extremity edema. The patient state s he believes that the legs are draining and is concerned because he is being discharged today. PAST MEDICAL HISTORY: The patient's medical history is significant for longstanding insulin-dependen t diabetes with peripheral vascular disease, congestive heart failure, atrial fibrillation, COPD, hyp ertension, and obstructive sleep apnea. MEDICATIONS: Home medications are noted in MAR. ALLERGIES: The patient has no known drug allergies. VITAL SIGNS: Today reveal a temperature of 98, pulse rate of 91, blood pressure 144/82, respiratory rate of 20. LABORATORY DATA: Reveal a white count of 9.5, hemoglobin of 11.7, hematocrit of 35.8, platelet count of 294. OBJECTIVE: Weakly palpable pedal pulses bilaterally. There is + 2 nonpitting lower extremity edema bilaterally. There are no open lesions noted. There is no weeping. There is no redness. There are no signs of acute bacterial infection or cellulitis. ASSESSMENT: Uncontrolled diabetic with a history of chronic stasis disease with resolved ulcerations on both lower legs. PLAN OF TREATMENT: The patient was told that he has to continue applying the Lac-Hydrin lotion daily and he must use his Tubigrip compression stockings in order to prevent his legs from swelling and calderon bsequently weeping and opening up into venous stasis ulcerations. Once again, he was told that he sh ould not drink beer as this has a lot of salt which causes his legs swell and he should elevate both legs when resting. The patient will be seen and followed in wound care center. Andres Kaur DPM cc: [id number] TT: 12/21/2016 17:13:04 Confirmation # [id number] Dictation # [id number]
== END 2016-12-21 15:54 | disposition home or self-care (01) | DRG 127 ==
LOC: ED 01:33 → ERH 04:23 → CCU 05:30 → 2RNO 12-20 11:29
PROVIDERS: ADMIT Internal Medicine; ATTEND Internal Medicine
DX: I11.0 Hypertensive heart disease with heart failure (principal); E11.40 Type 2 diabetes mellitus with diabetic neuropathy, unspecified; E11.51 Type 2 diabetes mellitus with diabetic peripheral angiopathy without gangrene; E87.1 Hypo-osmolality and hyponatremia; L03.115 Cellulitis of right lower limb; I08.1 Rheumatic disorders of both mitral and tricuspid valves; J44.1 Chronic obstructive pulmonary disease with (acute) exacerbation; E11.622 Type 2 diabetes mellitus with other skin ulcer; E87.6 Hypokalemia; L03.116 Cellulitis of left lower limb; L97.919 Non-pressure chronic ulcer of unspecified part of right lower leg with unspecified severity; I37.1 Nonrheumatic pulmonary valve insufficiency; I08.3 Combined rheumatic disorders of mitral, aortic and tricuspid valves; E66.01 Morbid (severe) obesity due to excess calories; I83.009 Varicose veins of unspecified lower extremity with ulcer of unspecified site; I48.0 Paroxysmal atrial fibrillation; I50.33 Acute on chronic diastolic (congestive) heart failure; I48.2 Chronic atrial fibrillation; I25.10 Atherosclerotic heart disease of native coronary artery without angina pectoris; I87.8 Other specified disorders of veins; I87.2 Venous insufficiency (chronic) (peripheral); G47.33 Obstructive sleep apnea (adult) (pediatric); E11.65 Type 2 diabetes mellitus with hyperglycemia; E78.5 Hyperlipidemia, unspecified; F41.9 Anxiety disorder, unspecified; G47.00 Insomnia, unspecified; K08.89 Other specified disorders of teeth and supporting structures; K21.9 Gastro-esophageal reflux disease without esophagitis; Z68.42 Body mass index [BMI] 45.0-49.9, adult; Z79.84 Long term (current) use of oral hypoglycemic drugs; Z87.891 Personal history of nicotine dependence; Z90.49 Acquired absence of other specified parts of digestive tract; Z91.14 Patient's other noncompliance with medication regimen; Z95.5 Presence of coronary angioplasty implant and graft; R40.2412 Glasgow coma scale score 13-15, at arrival to emergency department; Z87.898 Personal history of other specified conditions

== ENCOUNTER 2017-07-31 12:37 | Observation (INO) | payer OTHER ==
[2017-07-31 12:38] VITALS: PULSE 95
--- NOTE | 2017-07-31 13:09 | ED PDOC ---
Arrival/HPI - General Chief Complaint: Shortness Of Breath Time Seen by Provider: 07/31/17 12:49 Historian: Patient - History of Present Illness Narrative History of Present Illness (Text): 07/31/17 12:57 A 57 year old male, whose past medical history includes diabetes, diabetic neuropathy, paroxysmal atrial fibrillation, CAD, chronic venous stasis, and obstructive sleep apnea, presents to the emergency department complaining of bilateral leg swelling and shortness of breath on exertion. Patient reports having leg ulcers bilaterally. Patient denies any other complaints at this time. Ulcers were dressed 2 days ago. PMD: Dr. Leiva Past Medical History - Provider Review Nursing Documentation Reviewed: Yes - Infectious Disease Hx of Infectious Diseases: None - Tetanus Immunization Tetanus Immunization: Unknown - Cardiac Hx Cardiac Disorders: Yes Hx Congestive Heart Failure: Yes Hx Hypertension: Yes - Pulmonary Hx Respiratory Disorders: Yes Hx Sleep Apnea: Yes - Neurological Hx Neurological Disorder: Yes Other/Comment: tremors - HEENT Hx HEENT Disorder: Yes Other/Comment: glasses - Renal Hx Renal Failure: Yes (ARF 11/2014) - Endocrine/Metabolic Hx Diabetes Mellitus Type 2: Yes - Hematological/Oncological Hx Blood Disorders: No - Integumentary Hx Dermatological Disorder: No Other/Comment: cellulitis on sudhir lower ext. Chronic venous insufficiency ( previous triage) - Musculoskeletal/Rheumatological Hx Falls: No - Gastrointestinal Hx Gastroesophageal Reflux: Yes - Genitourinary/Gynecological Hx Genitourinary Disorders: No - Psychiatric Hx Psychophysiologic Disorder: Yes Hx Anxiety: Yes Hx Substance Use: No - Surgical History Hx Appendectomy: Yes Hx Cardiac Catheterization: Yes (04/2014) Hx Coronary Stent: Yes - Anesthesia Hx Anesthesia: Yes Hx Anesthesia Reactions: No Hx Malignant Hyperthermia: No - Suicidal Assessment Feels Threatened In Home Enviroment: No Family/Social History - Physician Review Nursing Documentation Reviewed: Yes Family/Social History: No Known Family HX Smoking Status: Former Smoker Hx Alcohol Use: Yes (6 pack beer /daily) Hx Substance Use: No Hx Substance Use Treatment: No Allergies/Home Meds Allergies/Adverse Reactions: Allergies No Known Allergies Allergy (Verified 07/31/17 17:40) Home Medications: Home Meds Medication Instructions Recorded Confirmed Albuterol HFA [Ventolin HFA 90 1 puff IH BID PRN 09/17/16 07/31/17 mcg/actuation (8 g)] Atenolol [Tenormin] 1 tab PO DAILY 09/17/16 07/31/17 Furosemide [Lasix] 1 tab PO BID 09/17/16 07/31/17 Oxycodone HCl/Acetaminophen 1 tab PO Q4H PRN 09/17/16 11/24/16 [Percocet 10-325 mg Tablet] metOLazone [Zaroxolyn] 1 tab PO 2XW 09/17/16 07/31/17 Review of Systems - Physician Review All systems were reviewed & negative as marked: Yes - Review of Systems Respiratory: SOB (on exertion) Musculoskeletal: Other (bilateral leg swelling, leg ulcers bilaterally) Physical Exam Vital Signs Reviewed: Yes Vital Signs Temp Pulse Resp BP Pulse Ox 07/31/17 15:17 97.7 F 96 H 18 136/73 07/31/17 14:38 85 19 135/70 96 07/31/17 13:10 20 07/31/17 12:55 97.7 F 88 19 138/69 95 Temperature: Afebrile Blood Pressure: Normal Pulse: Regular Respiratory Rate: Normal Appearance: Positive for: Well-Appearing Pain Distress: None Mental Status: Positive for: Alert and Oriented X 3 - Systems Exam Head: Present: Atraumatic, Normocephalic Pupils: Present: PERRL Extroacular Muscles: Present: EOMI Conjunctiva: Present: Normal Mouth: Present: Moist Mucous Membranes Neck: Present: Normal Range of Motion Respiratory/Chest: Present: Rales (mild rales at base of lungs) Cardiovascular: Present: Regular Rate and Rhythm, Normal S1, S2. No: Murmurs Abdomen: Present: Normal Bowel Sounds. No: Tenderness, Distention, Peritoneal Signs Back: Present: Normal Inspection Upper Extremity: Present: Normal Inspection. No: Cyanosis, Edema Lower Extremity: Present: Edema (diffused pedial edema bilaterally) Neurological: Present: GCS=15, CN II-XII Intact, Speech Normal Skin: Present: Warm, Dry, Normal Color. No: Rashes Psychiatric: Present: Alert, Oriented x 3, Normal Insight, Normal Concentration Medical Decision Making ED Course and Treatment: 07/31/17 13:02 Impression: 57 year old male with shortness of breath upon exertion and bilateral leg swelling. Physical exam shows diffuse pedial edema bilaterally; mild rales at base of lungs. Plan: -- EKG -- Chest X-ray -- Labs -- Urinalysis -- Reassess and disposition Prior Visits: Notes and results from previous visits were reviewed. Patient was last seen in the emergency department on 12/17/2016 for shortness of breath. Patient was admitted. Progress Notes: EKG: Ordered, reviewed, and independently interpreted the EKG. Rate : 91 BPM Rhythm : Atrial Fibrillation Interpretation : No ST-segment elevations or depressions, no T-wave inversions, normal intervals. Comparison : No previous EKG for comparison. 07/31/17 13:10 Patient refuses to have dressings taken off for ulcers to be examined. 07/31/2017 13:36 Chest X-ray FINDINGS: LUNGS: No consolidation. Interstitial lung markings/bronchovascular markings appear prominent-however the large habitus and summation due to this is in large part contributory. Similar appearance. PLEURA: No significant abnormalities. VISUALIZED UPPER ABDOMEN: Normal. OTHER FINDINGS: Large body habitus-similar. IMPRESSION: Cardiomegaly -similar perceived increased bronchovascular and interstitial lung markings -the large body habitus and summation of the soft tissues are likely contributing to this appearance. No changed in this regard appreciated. No sharyn pleural effusions. No interval consolidation/infiltrate or atelectasis. Dictator: Clarisa Diaz MD 07/31/17 14:[address] Leiva, whom accepts patient under service. Lasix dosed but asked to hold after patient receives potassium. - Lab Interpretations Microbiology Results: Microbiology Results 07/31/17 13:45 Blood Blood Culture - Preliminary NO GROWTH AFTER 24 HOURS 07/31/17 13:15 Blood Blood Culture - Preliminary NO GROWTH AFTER 24 HOURS Lab Results: 07/31/17 13:15 07/31/17 13:15 Lab Results 07/31/17 13:15: Hemoglobin A1c 6.7 H 07/31/17 13:15: PT 14.5 H, INR 1.31 H, APTT 38.5 H 07/31/17 13:15: Sodium 132, Potassium 2.6 L*, Chloride 85 L, Carbon Dioxide 33, Anion Gap 17, BUN 22 H, Creatinine 1.1, Est GFR ( Amer) > 60, Est GFR ( Non-Af Amer) > 60, Random Glucose 141 H, Calcium 9.3, Magnesium 1.6 L, Total Bilirubin 0.6, AST 46, ALT 40, Alkaline Phosphatase 55, Lactate Dehydrogenase 365, Total Creatine Kinase 89, Troponin I < 0.01, NT-Pro-B Natriuret Pep 1480 H , Total Protein 7.3, Albumin 3.9, Globulin 3.4, Albumin/Globulin Ratio 1.2 07/31/17 13:15: WBC 10.5, RBC 3.95, Hgb 12.7 L, Hct 37.2 L, MCV 94.2, MCH 32.2, MCHC 34.1, RDW 14.2, Plt Count 297, MPV 8.7, Gran % 79.9 H, Lymph % (Auto) 10.7 L, Sol[place] % (Auto) 7.6 H, Eos % (Auto) 1.5, Baso % (Auto) 0.3, Gran # 8.38 H, Lymph # 1.1 L, Solano # 0.8 H, Eos # 0.2, Baso # 0.03 I have reviewed the lab results: Yes - RAD Interpretation Radiology Orders: 07/31/17 13:03 CHEST PORTABLE [RAD] Stat - Medication Orders Current Medication Orders: Alprazolam (Xanax) 1 mg PO BID [facility] PRN Reason: Protocol Last Admin: 08/01/17 17:15 Dose: 1 mg Behavioural Document 08/01/17 17:15 RDS (Rec: 08/01/17 17:15 RDS [id number]) Maintenance Maintenance Dose Yes Nonmedicinal Nonmedicinal Interventions Therapeutic Communication Behavior Behavior for Medication: Anxiety Atorvastatin Calcium (Lipitor) 80 mg PO DIN [facility] Last Admin: 08/01/17 17:16 Dose: 80 mg Dabigatran (Pradaxa) 150 mg PO BID [facility] PRN Reason: Protocol Last Admin: 08/01/17 17:15 Dose: 150 mg Furosemide (Lasix) 40 mg IV DAILY [facility] Ampicillin Sodium/Sulbactam (Sodium 1.5 gm/ Sodium Chloride) 100 mls @ 200 mls/ hr IVPB Q6 [facility] PRN Reason: Protocol Last Admin: 08/01/17 12:58 Dose: 200 mls/hr eMAR Start Stop Document 08/01/17 12:58 RDS (Rec: 08/01/17 12:59 RDS [id number]) Intravenous Solution Start Date 08/01/17 Start Time 12:58 End Date 08/01/17 End time 13:28 Total Infusion Time 30 Insulin Human Regular (Humulin R Low) 0 units SC ACHS [facility] PRN Reason: Protocol Last Admin: 08/01/17 16:33 Dose: Not Given Non-Admin Reason: Blood Sugar Parameter [facility] Blood Glucose Document 08/01/17 16:33 RDS (Rec: 08/01/17 16:33 RDS [id number]) Blood Glucose Finger Stick Blood Glucose (70-120) 130 Metoprolol Tartrate (Lopressor) 50 mg PO BID [facility] Last Admin: 08/01/17 17:16 Dose: 50 mg [facility] Pulse and Blood Pressure Document 08/01/17 17:16 RDS (Rec: 08/01/17 17:17 RDS [id number]) Pulse Pulse Rate (60-90) 90 Blood Pressure Blood Pressure (100/60-150/90) 129/85 Multi-Ingredient Cream (Hydrocerin Cream) 0 ea TOP DAILY [facility] Oxycodone/Acetaminophen (Percocet 10/325 Mg Tab) 1 tab PO Q4H PRN PRN Reason: Pain, moderate (4-7) Last Admin: 08/01/17 11:11 Dose: 1 tab [facility] Pain Assessment Document 08/01/17 11:11 RDS (Rec: 08/01/17 11:11 RDS [id number]) Pain Reassessment Is this a pain reassessment? No Presence of Pain Presence of Pain Yes Pain Scale Used Pain Scale Used Numeric Location Left, Right or Bilateral Bilateral Pain Location Body Site Leg Description Intensity of Pain at present 8 Re-Assess: [facility] Pain Assessment Document 08/01/17 12:11 RDS (Rec: 08/01/17 12:19 RDS [id number]) Pain Reassessment Is this a pain reassessment? Yes Sleep Is patient sleeping during reassessment? No Presence of Pain Presence of Pain No Sitagliptin Phosphate (Januvia) 100 mg PO DAILY [facility] Last Admin: 08/01/17 11:11 Dose: 100 mg Spironolactone (Aldactone) 25 mg PO BID [facility] Last Admin: 08/01/17 17:15 Dose: 25 mg Discontinued Medications Furosemide (Lasix) 40 mg IVP STAT STA Stop: 07/31/17 14:10 Last Admin: 07/31/17 15:10 Dose: Furosemide (Lasix) 40 mg IV ONCE ONE Stop: 08/01/17 17:01 Last Admin: 08/01/17 17:15 Dose: 40 mg eMAR Start Stop Document 08/01/17 17:15 RDS (Rec: 08/01/17 17:15 RDS [id number]) Intravenous Solution Start Date 08/01/17 Start Time 17:15 MAR Blood Pressure Document 08/01/17 17:15 RDS (Rec: 08/01/17 17:15 RDS [id number]) Blood Pressure Blood Pressure (100/60-150/90) 129/85 Vancomycin HCl (Vancomycin 1gm) 1 gm in 250 mls @ 167 mls/hr IVPB STAT STA PRN Reason: Protocol Stop: 07/31/17 14:40 Last Admin: 07/31/17 14:00 Dose: 167 mls/hr eMAR Start Stop Document 07/31/17 14:00 JOL (Rec: 07/31/17 14:39 JO [id number]) Intravenous Solution Start Date 07/31/17 Start Time 14:00 End Date 07/31/17 End time 15:30 Total Infusion Time 90 Piperacillin Sod/Tazobactam Sod (Zosyn 3.375 In Ns 100ml) 100 mls @ 200 mls/hr IVPB STAT STA PRN Reason: Protocol Stop: 07/31/17 13:40 Potassium Chloride (Potassium Chloride 10 Meq/100 Ml) 10 meq in 100 mls @ 50 mls/hr IVPB ONCE ONE Stop: 07/31/17 15:58 Last Admin: 07/31/17 14:05 Dose: 50 mls/hr eMAR Start Stop Document 07/31/17 14:05 JOL (Rec: 07/31/17 14:40 JOL [id number]) Intravenous Solution Start Date 07/31/17 Start Time 14:05 End Date 07/31/17 End time 16:05 Total Infusion Time 120 Potassium Chloride (Potassium Chloride 10 Meq/100 Ml) 10 meq in 100 mls @ 50 mls/hr IVPB ONCE ONE Stop: 07/31/17 15:59 Last Admin: 07/31/17 15:50 Dose: 50 mls/hr eMAR Start Stop Document 07/31/17 15:50 MF (Rec: 07/31/17 15:50 MF [id number]) Intravenous Solution Start Date 07/31/17 Start Time 15:50 Pneumococcal Polyvalent Vaccine (Pneumovax 23 Vaccine) 0.5 ml IM .ONCE ONE Stop: 07/31/17 19:50 Last Admin: 07/31/17 22:59 Dose: Immunization Registry Document 07/31/17 22:59 FM (Rec: 07/31/17 23:00 FM [id number]) Immunization Registry Consent Date 07/19/17 Potassium Chloride (K-Dur 20 Meq Er Tab) 40 meq PO STAT STA Stop: 07/31/17 14:00 Last Admin: 07/31/17 14:05 Dose: 40 meq Potassium Chloride (Potassium Chloride Oral Soln) 40 meq PO ONCE ONE Stop: 08/01/17 12:11 Last Admin: 08/01/17 12:44 Dose: 40 meq Potassium Chloride (K-Dur 20 Meq Er Tab) 40 meq PO ONCE ONE Stop: 08/01/17 14:10 Last Admin: 08/01/17 17:15 Dose: 40 meq Potassium Chloride (K-Dur 20 Meq Er Tab) 40 meq PO ONCE ONE Stop: 08/01/17 17:01 Last Admin: 08/01/17 17:16 Dose: 40 meq - Scribe Statement The provider has reviewed the documentation as recorded by the Radha Mathur Provider Scribe Attestation: All medical record entries made by the Radha were at my direction and personally dictated by me. I have reviewed the chart and agree that the record accurately reflects my personal performance of the history, physical exam, medical decision making, and the department course for this patient. I have also personally directed, reviewed, and agree with the discharge instructions and disposition. Disposition/Present on Arrival - Present on Arrival Any Indicators Present on Arrival: No History of DVT/PE: No History of Uncontrolled Diabetes: No Urinary Catheter: No History of Decub. Ulcer: No History Surgical Site Infection Following: None - Disposition Have Diagnosis and Disposition been Completed?: Yes Diagnosis: CHF (congestive heart failure), Cellulitis Disposition: HOSPITALIZED Disposition Time: 03:00 Condition: FAIR
[2017-07-31] MEDS ORDERED: Vancomycin 1gm in NS 250ml 1 GM/250 ML BAG IVPB STA (13:11)
[2017-07-31] MEDS ORDERED: Piperacillin/Tazobact 3.375 gm 100 ML IVPB STA (13:11)
[2017-07-31 13:33] LABS: BASO # 0.03 K/mm3 (0.0-2.0); BASO % 0.3 % (0.0-3.0); EOS # 0.2 (0.0-0.7); EOS % 1.5 % (1.5-5.0); GRAN # 8.38 (1.4-6.5); GRAN % 79.9 % (50.0-68.0); HEMATOCRIT 37.2 % (42.0-52.0); LYMPH # 1.1 (1.2-3.4); LYMPH % 10.7 % (22.0-35.0); MEAN CELL VOLUME 94.2 fl (80.0-105.0); MEAN CORPUSCULAR HEMOGLOBIN 32.2 pg (25.0-35.0); MEAN CORPUSCULAR HGB CONC 34.1 g/dl (31.0-37.0); MEAN PLATELET VOLUME 8.7 fl (7.0-11.0); MONO # 0.8 (0.1-0.6); MONO % 7.6 % (1.0-6.0); RED CELL DISTRIBUTION WIDTH 14.2 % (11.5-14.5); WHITE BLOOD COUNT 10.5 10^3/ul (4.5-11.0)
--- NOTE | 2017-07-31 13:38 | RAD ---
HISTORY: sob COMPARISON: 12/17/2016 FINDINGS: LUNGS: No consolidation. Interstitial lung markings/bronchovascular markings appear prominent-however the large body habitus and summation due to this is in large part contributory. Similar appearance PLEURA: No significant pleural effusion identified, no pneumothorax apparent. CARDIOVASCULAR: Cardiomegaly-similar OSSEOUS STRUCTURES: No significant abnormalities. VISUALIZED UPPER ABDOMEN: Normal. OTHER FINDINGS: Large body habitus-similar IMPRESSION: Cardiomegaly -similar perceived increased bronchovascular and interstitial lung markings -the large body habitus and summation of the soft tissues are likely contributing to this appearance. No change in this regard appreciated. No sharyn pleural effusions. No interval consolidation/infiltrate or atelectasis
[2017-07-31 13:48] LABS: TROPONIN I < 0.01 ng/mL
[2017-07-31 13:58] LABS: ALB/GLOB RATIO 1.2 (1.1-1.8); ALKALINE PHOSPHATASE 55 U/L (38-126); ALT/SGPT 40 U/L (7-56); AST/SGOT 46 U/L (17-59); BILIRUBIN,TOTAL 0.6 mg/dL (0.2-1.3); BLOOD UREA NITROGEN 22 mg/dL (7-21); CALCIUM 9.3 mg/dL (8.4-10.5); CARBON DIOXIDE 33 mmol/L (21-33); CHLORIDE 85 mmol/L (98-107); GFR AFRICAN-AMERICAN > 60; GLUCOSE,RANDOM 141 mg/dL (70-110); MAGNESIUM 1.6 mg/dL (1.7-2.2); POTASSIUM 2.6 mmol/L (3.6-5.0); SODIUM 132 mmol/L (132-148); TOTAL PROTEIN 7.3 g/dL (5.8-8.3)
[2017-07-31] MEDS ORDERED: Potassium Chloride 20 mEq ER Tab PO STA (13:59)
[2017-07-31 14:04] LABS: INR 1.31 (0.93-1.08); PARTIAL THROMBOPLASTIN TIME 38.5 Seconds (25.1-36.5)
[2017-07-31] MEDS: Oxycodone/Acetaminophen 10/325 mg Tab PO PRN (17:30)
[2017-07-31 19:49] VITALS: BMI 36.6
[2017-07-31] MEDS ORDERED: Influenza Vaccine 60 mcg/0.5 mL SYR (4YR UP) IM ONE (19:49)
[2017-07-31] MEDS ORDERED: Pneumococcal 23-Valent Vaccine IM ONE (19:49)
[2017-07-31 21:57] LABS: URINE BILIRUBIN NEGATIVE (NEGATIVE); URINE BLOOD NEGATIVE (NEGATIVE); URINE GLUCOSE (UA) NEGATIVE (NEGATIVE); URINE KETONE NEGATIVE (NEGATIVE); URINE LEUKOCYTE ESTERASE NEGATIVE Leu/uL (NEGATIVE); URINE PROTEIN NEGATIVE mg/dL (<30 mg/dL); URINE UROBILINOGEN 0.2 E.U./dL (<1 E.U./dL)
[2017-07-31 21:59] LABS: URINE APPEARANCE CLEAR (CLEAR); URINE COLOR YELLOW (YELLOW)
--- NOTE | 2017-07-31 23:15 | CARD ---
APPROVED REPORT EKG Measurement Heart [id number] <Conclusion> Atrial fibrillation Nonspecific ST abnormality, probably digitalis effect Prolonged QT Abnormal ECG
--- NOTE | 2017-08-01 08:31 | PN ---
DATE: 07/31/2017 SUBJECTIVE: This is a 57-year-old diabetic male seen for bilateral lower extremity ulcerations. The patient is a [facility] patient whom we see weekly for chronic venous insufficiency with stasis dermatitis and sometimes he has weeping ulcers. He did come to the [facility] on Saturday complaining of shortness of breath and having increased weeping from his bilateral legs. He was advised to go to the ER and he did show up to ER, today he had something to do and could not get there until today. The patient states that he did not have a good morning, but he is starting to feel better now. PAST MEDICAL HISTORY: Positive for diabetes, positive for cardiac disease, and positive for chronic on and off ulceration to his lower extremities. MEDICATIONS: His medications are noted on the OCT. I do not think he is on any antibiotics at this time. He was given vancomycin and piperacillin which have been discontinued. ALLERGIES: HE ALSO HAS NO KNOWN DRUG ALLERGY. LABORATORY DATE: His laboratory show his chemistry has a sodium of 132, potassium was 2.6, chloride was 85. His BUN and creatinine were 22 and 1.1, his glucose was 141, and his BNP was 1480. The patient's hematology was also reviewed. His white blood cell count was 10.5, the H and H were 12.7 and 37.2, platelets were 297, granulocytes were 79.9, lymphocytes were 10.7. The patient's coagulation, INR is 1.3. MICROBIOLOGY: He has not had microbiology by [facility] since December. The patient's lower extremities were evaluated. He has nonpalpable pedal pulses, but he has had arterial Dopplers in the past and his arterial Doppler study Jolene Meadows DPM
[2017-08-01] MEDS ORDERED: diltiaZEM 180 mg/24 Hours CD Cap PO SCH (10:30)
[2017-08-01] MEDS: Oxycodone/Acetaminophen 10/325 mg Tab PO PRN ×2 (11:11→17:30)
[2017-08-01 11:42] LABS: ALB/GLOB RATIO 1.2 (1.1-1.8); ALKALINE PHOSPHATASE 51 U/L (38-126); ALT/SGPT 34 U/L (7-56); AST/SGOT 44 U/L (17-59); BILIRUBIN,TOTAL 0.7 mg/dL (0.2-1.3); BLOOD UREA NITROGEN 21 mg/dL (7-21); CALCIUM 9.1 mg/dL (8.4-10.5); CARBON DIOXIDE 38 mmol/L (21-33); CHLORIDE 86 mmol/L (98-107); GFR AFRICAN-AMERICAN > 60; GLUCOSE,RANDOM 183 mg/dL (70-110); SODIUM 131 mmol/L (132-148); TOTAL PROTEIN 6.9 g/dL (5.8-8.3)
--- NOTE | 2017-08-01 11:51 | US ---
PROCEDURE: Lower extremity IGNACIO exam HISTORY: Peripheral vascular disease with bilateral spacers ulceration. Previous smoker. Diabetes.. PHYSICIAN(S): Jori Alejandra MD. FINDINGS: The exam is limited by swelling and distal bandages. The PT pressures were not obtained The resting ABIs are mildly abnormal: Right, 0.89 and left, 0.75 The brachial pressures are symmetric The low thigh pressures and waveforms are relatively normal and symmetric The calf PVR waveforms augment normally. The ankle and metatarsal waveforms are relatively normal and symmetric. There may be mild bilateral tibial disease. IMPRESSION: 1. Limited study. 2. The resting ABIs are mildly abnormal. 3. Possible mild bilateral tibial disease.
[2017-08-01] MEDS ORDERED: Potassium Chloride 40 mEq/30 ml LIQ UD PO ONE (12:10)
[2017-08-01] MEDS: Insulin Reg-LOW-Coverage SC SCH ×3 (12:44→22:52)
[2017-08-01] MEDS ORDERED: Potassium Chloride 20 mEq ER Tab PO ONE ×2 (14:09→17:00)
--- NOTE | 2017-08-01 19:45 | CON ---
DATE: 08/01/2017 REASON FOR CONSULTATION: Shortness of breath, cardiac evaluation, rule out CHF, atrial fibrillation, and morbid obesity. BRIEF CLINICAL HISTORY: This is a 57-year-old morbidly obese male with a past medical history of chronic atrial fibrillation, COPD, obstructive sleep apnea, diabetes, hypertension, hyperlipidemia, who came in with a complaint of shortness of breath for couple of days and increased swelling of the leg. Denies any chest pain. Denies any shortness of breath. Denies any palpitation. PAST MEDICAL HISTORY: Significant for nonobstructive coronary artery disease, status post cardiac catheterization on 05/12/2014 with EF of 65% and distal LAD diffusely diseased and no focal stenosis, diabetes, hypertension, hyperlipidemia, morbid obesity, chronic atrial fibrillation, obstructive sleep apnea, noncompliance with the medications, chronic leg edema, and history of obstructive sleep apnea, on CPAP. PREVIOUS CARDIAC WORKUP: As follows: The patient had most recent echocardiography done on 12/17/2016 that shows ejection fraction of 55%, right ventricle dilated, RV function moderately reduced, trace aortic regurgitation, trace mitral regurgitation, mild tricuspid regurgitation, RV systolic pressure of 22. Later on, the patient had nuclear scan done because of a technically difficult study dated 12/18/2016, that showed ejection fraction of left ventricle at 64% and normal RV wall motion. The patient, as mentioned, had a cardiac catheterization on 05/12/2015, nonobstructive coronary artery disease with ejection fraction of 65%, diffusely diseased LAD, but no focal stenosis. History of chronic atrial fibrillation, on anticoagulation. PERSONAL HISTORY: Denies any history of alcohol abuse and history of tobacco abuse. ALLERGIES: NO KNOWN DRUG ALLERGIES. CURRENT MEDICATIONS: The patient is taking currently Cardizem CD 240 mg daily, Januvia, potassium chloride, Protonix, oxycodone, metoprolol tartrate 50 mg b.i.d., Lasix 1 tablet twice, Pradaxa 150 mg, atorvastatin 80, atenolol 1 tablet daily, aspirin, albuterol, and Xanax. REVIEW OF SYSTEMS: As per HPI. Denies any chest pain, but complains of dyspnea on exertion and shortness of breath on exertion. PHYSICAL EXAMINATION: VITAL SIGNS: Height of the patient is 6 feet, weight of the patient 275, body mass index of 37.3 kg/m2. Temperature afebrile, heart rate 88, blood pressure 124/67. HEENT: PERRLA. Extraocular muscles intact. NECK: Supple. No carotid bruits or thyromegaly. CHEST: Clear to auscultation. HEART: S1 and S2 regular. ABDOMEN: Soft. EXTREMITIES: Clubbing and cyanosis negative. LABORATORY DATA: Blood workup as follows: WBC 10.5, hemoglobin 12.7, hematocrit 37.2, and platelet count 297. Chemistry shows sodium 133, potassium 3, chloride 86, carbon dioxide 38, anion gap of 10, BUN 21 and creatinine 1.1. BNP 1480. IMPRESSION: A 57-year-old morbidly obese male with type 2 diabetes, hypertension, hyperlipidemia, chronic atrial fibrillation and coronary artery disease on 05/12/2014. Most recent echo with preserved left ventricular function with ejection fraction of 55%. Most recent MUGA scan on 12/18/2016 shows a preserved left ventricular ejection fraction of 64%, normal right ventricular function, who was admitted with shortness of breath possibly secondary to diastolic function, morbid obesity, history of chronic atrial fibrillation, obstructive sleep apnea, noncompliance with medications, leg edema, pulmonary hypertension, essential right heart failure secondary to morbid obesity, chronic obstructive pulmonary disease, as well as diastolic dysfunction. RECOMMENDATIONS: Continue Pradaxa, the patient has a history of chronic atrial fibrillation. Resume atorvastatin and resume Lasix. Continue metoprolol. Supplement excessively potassium and put on spironolactone. We will follow with you. Thank you doctor for providing me the opportunity in following. Jalen Vargas MD
--- NOTE | 2017-08-01 21:59 | PN ---
DATE: 08/01/2017 SUBJECTIVE: This is a 57-year-old male seen for heavy drainage from his lower extremity. The patient has severe COPD, obstructive sleep apnea, he is also a diabetic, and has had on and off ulceration to this legs. MEDICATIONS: The patient's medications are noted on the MAR and he is receiving as an antibiotic. ALLERGIES: NO KNOWN DRUG ALLERGIES. PHYSICAL EXAMINATION VITAL SIGNS: Noted to have a temperature of 98.5, pulse rate is 86, his blood pressure 129/85, and his oxygen sat was 97%. LABORATORY DATA: The patent's labs are reviewed. His white blood cell count is 10.5, H and H is 12.7 and 37.2, and his platelets are 297 and these were the same labs that were on yesterday. His chemistry is new for today. He has a BUN and creatinine of 21 and 1.1. His glucose is 183. Hemoglobin A1c is 6.7. Microbiology: Blood cultures shown no growth after 24 hours. The patient's legs were examined. His dressing on his right leg was wet from serous weeping. The dressing on the left was dry and intact. All dressings were removed. The legs were cleansed with bath towelettes and then dried and upon inspection, there is no open wounds on the left leg and it was not draining, thus the leg was left open to air. His right lower extremity was still with some weeping coming of the medial ankle area. There was some skin opening secondary to the maceration of the skin; however, no full thickness ulcerations are noted. There is no cellulitis, malodor or any fluctuance or abscess present. ASSESSMENT: Chronic stasis ulcerations to the lower extremity with heavy weeping. PLAN OF TREATMENT: Continue local care and leg elevation. The patient's legs were dressed and he will be seen and followed. Jolene Meadows DPM
[2017-08-02] MEDS: Oxycodone/Acetaminophen 10/325 mg Tab PO PRN ×2 (00:34→11:33)
--- NOTE | 2017-08-02 00:42 | HP ---
HISTORY OF PRESENT ILLNESS The patient is a 57-year-old male admitted through the Emergency Department on 07/31/2017 with increasing shortness of breath and edema. He was noted to have an elevated BNP level, troponin was negative, and he was admitted to the telemetry unit for further observation and management. PAST MEDICAL HISTORY: Includes hypertension, hypertensive cardiovascular disease, CHF, paroxysmal atrial fibrillation, COPD, obstructive sleep apnea, nonobstructive coronary artery disease, type 2 diabetes mellitus with morbid obesity and diabetic neuropathy and chronic venous insufficiency of the lower extremities with chronic venous stasis ulcers and recurrent cellulitis. MEDICATIONS: The patient is on the following medications; Lasix 20 mg twice daily, Lipitor 80 mg daily, metoprolol 50 mg twice daily, Pradaxa 150 mg twice daily, Protonix 40 mg daily, K-Dur 20 mEq daily, Percocet 10/325 mg one tab q.4 hours and Xanax 1 mg twice daily. SOCIAL HISTORY: The patient has a history of tobacco and alcohol use. FAMILY HISTORY: Noncontributory. ALLERGIES: THE PATIENT HAS NO KNOWN ALLERGIES. REVIEW OF SYSTEMS: The patient denies any chest pain. The patient has mild dyspnea on exertion. No fever. No chills. No nausea. No vomiting. No diarrhea. No jaundice. PHYSICAL EXAMINATION: GENERAL: The patient is a well-developed obese male, in no acute distress. VITAL SIGNS: Blood pressure 124/67, temperature 97.2, pulse 88, and respiratory rate 20. HEENT: Head is normocephalic and atraumatic. Pupils are equal, round and reactive to light. Extraocular movements intact. NECK: Supple. No thyromegaly. No carotid bruit. No adenopathy. LUNGS: Show few bibasilar rales with scattered rhonchi. HEART: Regular rate and rhythm. ABDOMEN: Soft, nontender, and obese. Bowel sounds are normoactive. EXTREMITIES: Show 4+ brawny edema of the lower extremities to the knees bilaterally. Chronic venous stasis ulcer dressings are intact and clean. NEUROLOGIC: The patient is awake and oriented x3 without focal, sensory, or motor deficits. SKIN: Warm and dry. LABORATORY DATA: WBC is 10.5, hemoglobin is 12.7, and hematocrit is 37.2. Sodium 131, potassium 3.0, chloride 88, CO2 of 38, BUN 21, creatinine 1.1, and glucose 183. IMPRESSION: 1. Chronic venous stasis ulcers infected with cellulitis. 2. Hypertension and hypertensive cardiovascular disease and congestive heart failure. 3. Paroxysmal atrial fibrillation. 4. Chronic obstructive pulmonary disease. 5. Obstructive sleep apnea. 6. Nonobstructive coronary artery disease. 7. Type 2 diabetes mellitus with morbid obesity and diabetic neuropathy. 8. Hypokalemia and hyponatremia probably secondary to diuretics in addition to chronic alcohol use. PLAN: The patient is admitted to the telemetry unit. We will obtain Cardiology consultation with Dr. Rogers/Sam. We will obtain Podiatry consultation for wound care with Dr. Meadows. Monitor potassium levels and potassium supplementation is ordered. Regular insulin coverage and glucose monitoring and empiric IV antibiotics with Unasyn 1.5 g IV q.6 hours. MELCHOR Sousa MD
[2017-08-02 06:36] LABS: BASO # 0.05 K/mm3 (0.0-2.0); BASO % 0.5 % (0.0-3.0); EOS # 0.4 (0.0-0.7); EOS % 4.8 % (1.5-5.0); GRAN # 6.87 (1.4-6.5); GRAN % 75.1 % (50.0-68.0); HEMATOCRIT 38.5 % (42.0-52.0); LYMPH # 1.1 (1.2-3.4); LYMPH % 11.9 % (22.0-35.0); MEAN CELL VOLUME 97.5 fl (80.0-105.0); MEAN CORPUSCULAR HEMOGLOBIN 32.2 pg (25.0-35.0); MEAN PLATELET VOLUME 8.9 fl (7.0-11.0); MONO # 0.7 (0.1-0.6); MONO % 7.7 % (1.0-6.0); RED CELL DISTRIBUTION WIDTH 14.6 % (11.5-14.5); WHITE BLOOD COUNT 9.2 10^3/ul (4.5-11.0)
[2017-08-02 06:59] LABS: ALB/GLOB RATIO 1.1 (1.1-1.8); ALKALINE PHOSPHATASE 57 U/L (38-126); ALT/SGPT 35 U/L (7-56); AST/SGOT 41 U/L (17-59); BILIRUBIN,TOTAL 0.7 mg/dL (0.2-1.3); BLOOD UREA NITROGEN 24 mg/dL (7-21); CALCIUM 8.8 mg/dL (8.4-10.5); CARBON DIOXIDE 34 mmol/L (21-33); CHLORIDE 90 mmol/L (98-107); CHOLESTEROL 135 mg/dL (130-200); GFR AFRICAN-AMERICAN > 60; GLUCOSE,RANDOM 118 mg/dL (70-110); PHOSPHOROUS 3.4 mg/dL (2.5-4.5); POTASSIUM 3.6 mmol/L (3.6-5.0); SODIUM 133 mmol/L (132-148)
[2017-08-02] MEDS: Insulin Reg-LOW-Coverage SC SCH ×4 (07:43→22:03)
[2017-08-02] MEDS ORDERED: Potassium Chloride 20 mEq ER Tab PO ONE (09:14)
[2017-08-02] MEDS: metOLazone 5 MG TAB PO SCH (10:05)
[2017-08-02] MEDS: Hydrocerin(120 gm) TOP SCH (11:18)
--- NOTE | 2017-08-02 11:19 | CP.PCM.PN ---
Subjective - Date & Time of Evaluation Date of Evaluation: 08/02/17 Time of Evaluation: 11:00 - Subjective Subjective: resting comfortably, no acute distress, denies chest pain, no SOB Objective - Vital Signs/Intake and Output Vital Signs (last 24 hours): Temp Pulse Resp BP Pulse Ox 97.8 F 133 H 20 132/80 97 08/02/17 05:59 08/02/17 10:06 08/02/17 05:59 08/02/17 10:06 08/01/17 16:48 Intake and Output: 08/02/17 08/02/17 06:59 18:59 Intake Total 660 Output Total 2155 Balance -1495 - Medications Medications: Current Medications Alprazolam (Xanax) 1 mg PO BID [facility] PRN Reason: Protocol Last Admin: 08/02/17 10:05 Dose: 1 mg Atorvastatin Calcium (Lipitor) 80 mg PO DIN [facility] Last Admin: 08/01/17 17:16 Dose: 80 mg Dabigatran (Pradaxa) 150 mg PO BID [facility] PRN Reason: Protocol Last Admin: 08/02/17 10:06 Dose: 150 mg Furosemide (Lasix) 40 mg IV 0800,1400 [facility] Last Admin: 08/02/17 08:00 Dose: 40 mg Ampicillin Sodium/Sulbactam (Sodium 1.5 gm/ Sodium Chloride) 100 mls @ 200 mls/ hr IVPB Q6 [facility] PRN Reason: Protocol Last Admin: 08/02/17 06:49 Dose: 200 mls/hr Insulin Human Regular (Humulin R Low) 0 units SC ACHS [facility] PRN Reason: Protocol Last Admin: 08/02/17 07:43 Dose: Not Given Metolazone (Zaroxolyn) 5 mg PO DAILY [facility] Stop: 08/03/17 23:59 Last Admin: 08/02/17 10:05 Dose: 5 mg Metoprolol Tartrate (Lopressor) 50 mg PO BID [facility] Last Admin: 08/02/17 10:06 Dose: 50 mg Multi-Ingredient Cream (Hydrocerin Cream) 0 ea TOP DAILY [facility] Oxycodone/Acetaminophen (Percocet 10/325 Mg Tab) 1 tab PO Q4H PRN PRN Reason: Pain, moderate (4-7) Last Admin: 08/02/17 00:34 Dose: 1 tab Sitagliptin Phosphate (Januvia) 100 mg PO DAILY [facility] Last Admin: 08/02/17 10:05 Dose: 100 mg Spironolactone (Aldactone) 25 mg PO BID [facility] Last Admin: 08/02/17 10:06 Dose: 25 mg - Labs Labs: 08/02/17 06:00 08/02/17 06:00 PT 14.5 SECONDS (9.4-12.5) H 07/31/17 13:15 INR 1.31 (0.93-1.08) H 07/31/17 13:15 APTT 38.5 Seconds (25.1-36.5) H 07/31/17 13:15 - Respiratory Exam Respiratory Exam: Rales - Cardiovascular Exam Cardiovascular Exam: REGULAR RHYTHM - GI/Abdominal Exam GI & Abdominal Exam: Soft, Normal Bowel Sounds - Extremities Exam Extremities Exam: Pedal Edema - Neurological Exam Neurological Exam: Awake - Skin Skin Exam: Dry, Warm Assessment and Plan (1) Paroxysmal A-fib Status: Chronic (2) CHF (congestive heart failure) Status: Acute (3) Cellulitis Status: Acute (4) COPD (chronic obstructive pulmonary disease) Status: Chronic (5) Obstructive sleep apnea Status: Chronic - Assessment and Plan (Free Text) Plan: continue IV antibiotics/wound care Dr. Meadows, cardiology consult Dr. Vargas appreciated, on IV Lasix, K+ supplementation, monitor lytes
--- NOTE | 2017-08-02 13:37 | CP.PCM.PN ---
<Rossana Sung - Last Filed: 08/02/17 13:32> Subjective - Date & Time of Evaluation Date of Evaluation: 08/02/17 Time of Evaluation: 13:33 - Subjective Subjective: Podiatry Progress Note - Dr. Meadows/Vincent 57 year old male patient seen and evaluated at bedside for heavy drainage from both lower extremities. Patient is agitated, admits he urinated in his bed overnight. Per nursing, patient refusing to be cleaned or change his bed. Denies pain to either leg today. No pedal complaints this visit. Denies N/V/F/D/ C/SOB. Objective - Vital Signs/Intake and Output Vital Signs (last 24 hours): Temp Pulse Resp BP Pulse Ox 98.7 F 80 18 114/71 97 08/02/17 11:41 08/02/17 11:41 08/02/17 11:41 08/02/17 11:41 08/01/17 16:48 Intake and Output: 08/02/17 08/02/17 06:59 18:59 Intake Total 660 Output Total 2155 Balance -1495 - Medications Medications: Current Medications Alprazolam (Xanax) 1 mg PO BID [facility] PRN Reason: Protocol Last Admin: 08/02/17 10:05 Dose: 1 mg Atorvastatin Calcium (Lipitor) 80 mg PO DIN [facility] Last Admin: 08/01/17 17:16 Dose: 80 mg Dabigatran (Pradaxa) 150 mg PO BID [facility] PRN Reason: Protocol Last Admin: 08/02/17 10:06 Dose: 150 mg Furosemide (Lasix) 40 mg IV 0800,1400 [facility] Last Admin: 08/02/17 08:00 Dose: 40 mg Ampicillin Sodium/Sulbactam (Sodium 1.5 gm/ Sodium Chloride) 100 mls @ 200 mls/ hr IVPB Q6 [facility] PRN Reason: Protocol Last Admin: 08/02/17 11:32 Dose: 200 mls/hr Insulin Human Regular (Humulin R Low) 0 units SC ACHS [facility] PRN Reason: Protocol Last Admin: 08/02/17 11:33 Dose: 1 units Metolazone (Zaroxolyn) 5 mg PO DAILY [facility] Stop: 08/03/17 23:59 Last Admin: 08/02/17 10:05 Dose: 5 mg Metoprolol Tartrate (Lopressor) 50 mg PO BID [facility] Last Admin: 08/02/17 10:06 Dose: 50 mg Multi-Ingredient Cream (Hydrocerin Cream) 0 ea TOP DAILY [facility] Last Admin: 08/02/17 11:18 Dose: 1 applic Oxycodone/Acetaminophen (Percocet 10/325 Mg Tab) 1 tab PO Q4H PRN PRN Reason: Pain, moderate (4-7) Last Admin: 08/02/17 11:33 Dose: 1 tab Sitagliptin Phosphate (Januvia) 100 mg PO DAILY [facility] Last Admin: 08/02/17 10:05 Dose: 100 mg Spironolactone (Aldactone) 25 mg PO BID [facility] Last Admin: 08/02/17 10:06 Dose: 25 mg - Labs Labs: 08/02/17 06:00 08/02/17 06:00 PT 14.5 SECONDS (9.4-12.5) H 07/31/17 13:15 INR 1.31 (0.93-1.08) H 07/31/17 13:15 APTT 38.5 Seconds (25.1-36.5) H 07/31/17 13:15 - Constitutional Appears: Well, Non-toxic, No Acute Distress - Extremities Exam Additional comments: Dressing to RLE wet from serous weeping. No dressing to LLE. VASC: DP and PT pulses nonpalpable however dopplerable . CFT <3 seconds to all digits b/l. Temperature gradient warm to warm. +1 pitting edema noted NEURO: Gross sensation diminished bilaterally. DERM: Weeping noted to medial aspect of right lower leg, periwound maceration noted; absent full thickness ulcerations; absent cellulitis, malodor, fluctuance , abscess. No open wounds present to LLE. ORTHO: No pain on palpation noted to bilateral LE. - Neurological Exam Neurological Exam: Alert, Awake, Oriented x3 - Psychiatric Exam Psychiatric exam: Agitated Assessment and Plan - Assessment and Plan (Free Text) Assessment: 57 year old male with chronic stasis ulcerations to lower extremity with heavy weeping Plan: Patient seen and evaluated Discussed with attending, Dr. Kaur afebrile, absent leukocytosis RLE cleansed with bath towelettes and dressed with DSD Hydrocerin applied to LLE -Continue local wound care and leg elevation Continue IV abx Pain mgmt per medicine Podiatry will continue to follow patient while in house <Andres Kaur - Last Filed: 08/02/17 19:13> Objective - Vital Signs/Intake and Output Vital Signs (last 24 hours): Temp Pulse Resp BP Pulse Ox 98 F 131 H 20 111/58 L 97 08/02/17 18:00 08/02/17 18:16 08/02/17 18:00 08/02/17 18:16 08/01/17 16:48 Intake and Output: 08/02/17 08/03/17 18:59 06:59 Intake Total 200 Balance 200 - Medications Medications: Current Medications Alprazolam (Xanax) 1 mg PO BID [facility] PRN Reason: Protocol Last Admin: 08/02/17 18:17 Dose: 1 mg Atorvastatin Calcium (Lipitor) 80 mg PO DIN [facility] Last Admin: 08/02/17 18:17 Dose: 80 mg Dabigatran (Pradaxa) 150 mg PO BID [facility] PRN Reason: Protocol Last Admin: 08/02/17 18:17 Dose: 150 mg Furosemide (Lasix) 40 mg IV 0800,1400 [facility] Last Admin: 08/02/17 14:36 Dose: 40 mg Ampicillin Sodium/Sulbactam (Sodium 1.5 gm/ Sodium Chloride) 100 mls @ 200 mls/ hr IVPB Q6 [facility] PRN Reason: Protocol Last Admin: 08/02/17 18:17 Dose: 200 mls/hr Insulin Human Regular (Humulin R Low) 0 units SC ACHS [facility] PRN Reason: Protocol Last Admin: 08/02/17 16:56 Dose: Not Given Metolazone (Zaroxolyn) 5 mg PO DAILY [facility] Stop: 08/03/17 23:59 Last Admin: 08/02/17 10:05 Dose: 5 mg Metoprolol Tartrate (Lopressor) 50 mg PO BID [facility] Last Admin: 08/02/17 18:16 Dose: 50 mg Multi-Ingredient Cream (Hydrocerin Cream) 0 ea TOP DAILY [facility] Last Admin: 08/02/17 11:18 Dose: 1 applic Oxycodone/Acetaminophen (Percocet 10/325 Mg Tab) 1 tab PO Q4H PRN PRN Reason: Pain, moderate (4-7) Last Admin: 08/02/17 11:33 Dose: 1 tab Sitagliptin Phosphate (Januvia) 100 mg PO DAILY [facility] Last Admin: 08/02/17 10:05 Dose: 100 mg Spironolactone (Aldactone) 25 mg PO BID [facility] Last Admin: 08/02/17 18:17 Dose: 25 mg - Labs Labs: 08/02/17 06:00 08/02/17 06:00 PT 14.5 SECONDS (9.4-12.5) H 07/31/17 13:15 INR 1.31 (0.93-1.08) H 07/31/17 13:15 APTT 38.5 Seconds (25.1-36.5) H 07/31/17 13:15 Attending/Attestation - Attestation I have personally seen and examined this patient.: Yes I have fully participated in the care of the patient.: Yes I have reviewed all pertinent clinical information, including history, physical exam and plan: Yes
--- NOTE | 2017-08-02 15:01 | PN ---
REASON FOR CONSULTATION AND FOLLOWUP: Shortness of breath, cardiac evaluation rule out CHF, atrial fibrillation, and morbid obesity. SUBJECTIVE: The patient denies any chest pain. Lying 45 degree head up. Not in apparent distress. PHYSICAL EXAMINATION: GENERAL: The patient is sleeping. Not in apparent distress. VITAL SIGNS: Temperature afebrile, heart rate 62, blood pressure 127/58. HEENT: PERRLA. Extraocular muscles are intact. NECK: Supple. No carotid bruit or thyromegaly. CHEST: Clear to auscultation. HEART: S1 and S2 regular. ABDOMEN: Soft. EXTREMITIES: Clubbing and cyanosis negative. LABORATORY DATA: Blood workup as follows: WBC 9, hemoglobin 12, hematocrit 38.5, platelet count 258. Chemistry shows sodium 132, potassium 3.6, chloride 90, carbon dioxide 34, anion gap of 4, BUN 24, creatinine 1.1. TSH 2.92. IMPRESSION: Acute decompensated congestive heart failure diastolic dysfunction. Last echo on 12/17/2016 showed ejection fraction of 55%, right ventricular systolic pressure of 22, trace mitral regurgitation, mild tricuspid regurgitation. Chronic leg edema. Last MUGA scan on 12/18/2016 showed ejection fraction of 64%. Last catheterization on 05/12/2003 showed nonobstructive coronary artery disease with ejection fraction of 65%. Morbid obesity, diabetes, hypertension, hyperlipidemia, chronic leg edema and leg ulcer and 3+ pedal edema. History of chronic atrial fibrillation, history of chronic obstructive pulmonary disease. RECOMMENDATIONS: Follow up Podiatry. Continue aggressive diuresis. Continue Lasix 40 b.i.d. plus add Zaroxolyn for 2 to 3 days. Monitor electrolytes. Monitor and watch for hypokalemia. Continue Pradaxa for chronic atrial fibrillation. Aggressive medical treatment. We will repeat SMA-7 and MUGA tomorrow. Thank you Dr. Leiva for providing us the opportunity in taking care of Franki Flores, we will follow with you. No further cardiac workup is planned at this time. Jalen Vargas MD
[2017-08-03] MEDS: Oxycodone/Acetaminophen 10/325 mg Tab PO PRN ×4 (00:26→20:04)
[2017-08-03] MEDS: Insulin Reg-LOW-Coverage SC SCH ×4 (08:02→22:09)
[2017-08-03 08:13] LABS: BLOOD UREA NITROGEN 26 mg/dL (7-21); CALCIUM 8.7 mg/dL (8.4-10.5); CARBON DIOXIDE 33 mmol/L (21-33); CHLORIDE 91 mmol/L (98-107); GFR AFRICAN-AMERICAN > 60; GLUCOSE,RANDOM 113 mg/dL (70-110); MAGNESIUM 1.8 mg/dL (1.7-2.2); PHOSPHOROUS 3.9 mg/dL (2.5-4.5); POTASSIUM 2.9 mmol/L (3.6-5.0); SODIUM 135 mmol/L (132-148)
[2017-08-03] MEDS ORDERED: Potassium Chloride 20 mEq ER Tab PO STA (08:46)
[2017-08-03] MEDS: metOLazone 5 MG TAB PO SCH (09:59)
[2017-08-03] MEDS: Hydrocerin(120 gm) TOP SCH (10:00)
[2017-08-03] MEDS ORDERED: Potassium Chloride 20 mEq ER Tab PO ONE ×2 (11:00→13:00)
--- NOTE | 2017-08-03 11:02 | CP.PCM.PN ---
Subjective - Date & Time of Evaluation Date of Evaluation: 08/03/17 Time of Evaluation: 10:45 - Subjective Subjective: resting comfortably, no acute distress, denies chest pain, no shortness of breath Objective - Vital Signs/Intake and Output Vital Signs (last 24 hours): Temp Pulse Resp BP Pulse Ox 97.4 F L 126 H 20 113/58 L 97 08/03/17 05:52 08/03/17 09:59 08/03/17 05:52 08/03/17 09:59 08/03/17 00:01 Intake and Output: 08/03/17 08/03/17 06:59 18:59 Intake Total 680 Output Total 900 Balance -220 - Medications Medications: Current Medications Alprazolam (Xanax) 1 mg PO BID [facility] PRN Reason: Protocol Last Admin: 08/03/17 09:58 Dose: 1 mg Atorvastatin Calcium (Lipitor) 80 mg PO DIN [facility] Last Admin: 08/02/17 18:17 Dose: 80 mg Dabigatran (Pradaxa) 150 mg PO BID [facility] PRN Reason: Protocol Last Admin: 08/03/17 09:58 Dose: 150 mg Furosemide (Lasix) 40 mg IV 0800,1400 [facility] Last Admin: 08/03/17 08:23 Dose: 40 mg Ampicillin Sodium/Sulbactam (Sodium 1.5 gm/ Sodium Chloride) 100 mls @ 200 mls/ hr IVPB Q6 [facility] PRN Reason: Protocol Last Admin: 08/03/17 05:36 Dose: 200 mls/hr Insulin Human Regular (Humulin R Low) 0 units SC ACHS [facility] PRN Reason: Protocol Last Admin: 08/03/17 08:02 Dose: Not Given Metolazone (Zaroxolyn) 5 mg PO DAILY [facility] Stop: 08/03/17 23:59 Last Admin: 08/03/17 09:59 Dose: 5 mg Metoprolol Tartrate (Lopressor) 50 mg PO BID [facility] Last Admin: 08/03/17 09:59 Dose: 50 mg Multi-Ingredient Cream (Hydrocerin Cream) 0 ea TOP DAILY [facility] Last Admin: 08/03/17 10:00 Dose: 1 applic Oxycodone/Acetaminophen (Percocet 10/325 Mg Tab) 1 tab PO Q4H PRN PRN Reason: Pain, moderate (4-7) Last Admin: 08/03/17 08:27 Dose: 1 tab Potassium Chloride (K-Dur 20 Meq Er Tab) 40 meq PO ONCE ONE Stop: 08/03/17 13:01 Potassium Chloride (K-Dur 20 Meq Er Tab) 40 meq PO ONCE ONE Stop: 08/03/17 11:01 Sitagliptin Phosphate (Januvia) 100 mg PO DAILY [facility] Last Admin: 08/03/17 09:58 Dose: 100 mg Spironolactone (Aldactone) 25 mg PO BID [facility] Last Admin: 08/03/17 09:58 Dose: 25 mg - Labs Labs: 08/02/17 06:00 08/03/17 09:00 PT 14.5 SECONDS (9.4-12.5) H 07/31/17 13:15 INR 1.31 (0.93-1.08) H 07/31/17 13:15 APTT 38.5 Seconds (25.1-36.5) H 07/31/17 13:15 - Respiratory Exam Respiratory Exam: Clear to Ausculation Bilateral, NORMAL BREATHING PATTERN - Cardiovascular Exam Cardiovascular Exam: REGULAR RHYTHM - GI/Abdominal Exam GI & Abdominal Exam: Soft, Normal Bowel Sounds - Extremities Exam Extremities Exam: Pedal Edema - Neurological Exam Neurological Exam: Alert, Awake - Skin Skin Exam: Dry, Warm Assessment and Plan (1) Paroxysmal A-fib Status: Chronic (2) CHF (congestive heart failure) Status: Acute (3) Cellulitis Status: Acute (4) COPD (chronic obstructive pulmonary disease) Status: Chronic (5) Obstructive sleep apnea Status: Chronic (6) Hypokalemia Status: Acute - Assessment and Plan (Free Text) Plan: continue wound care Dr. Meadows/TAYLA Umanzor, cardiology follow-up Drs. Rogers/Sam , potassium supplementation ordered
--- NOTE | 2017-08-03 11:25 | CP.PCM.PN ---
<Sho Carlos - Last Filed: 08/03/17 11:22> Subjective - Date & Time of Evaluation Date of Evaluation: 08/03/17 Time of Evaluation: 10:00 - Subjective Subjective: Podiatry Progress Note - Dr. Kaur 57 year old male patient seen at bedside this AM for b/l leg ulcerations/ drainage. Pt seen resting comfortably upright in bed at time of visit. Denies aany f/n/v/c/sob/cp/weakness/dizziness or leg pain at this time. Says he is frustrated with the cream on the left leg as it got all over the bed and wasn't covered. Offers no other complaints today. Objective - Vital Signs/Intake and Output Vital Signs (last 24 hours): Temp Pulse Resp BP Pulse Ox 97.4 F L 126 H 20 113/58 L 97 08/03/17 05:52 08/03/17 09:59 08/03/17 05:52 08/03/17 09:59 08/03/17 00:01 Intake and Output: 08/03/17 08/03/17 06:59 18:59 Intake Total 680 Output Total 900 Balance -220 - Medications Medications: Current Medications Alprazolam (Xanax) 1 mg PO BID [facility] PRN Reason: Protocol Last Admin: 08/03/17 09:58 Dose: 1 mg Atorvastatin Calcium (Lipitor) 80 mg PO DIN [facility] Last Admin: 08/02/17 18:17 Dose: 80 mg Dabigatran (Pradaxa) 150 mg PO BID [facility] PRN Reason: Protocol Last Admin: 08/03/17 09:58 Dose: 150 mg Furosemide (Lasix) 40 mg IV 0800,1400 [facility] Last Admin: 08/03/17 08:23 Dose: 40 mg Ampicillin Sodium/Sulbactam (Sodium 1.5 gm/ Sodium Chloride) 100 mls @ 200 mls/ hr IVPB Q6 [facility] PRN Reason: Protocol Last Admin: 08/03/17 05:36 Dose: 200 mls/hr Insulin Human Regular (Humulin R Low) 0 units SC ACHS [facility] PRN Reason: Protocol Last Admin: 08/03/17 08:02 Dose: Not Given Metolazone (Zaroxolyn) 5 mg PO DAILY [facility] Stop: 08/03/17 23:59 Last Admin: 08/03/17 09:59 Dose: 5 mg Metoprolol Tartrate (Lopressor) 50 mg PO BID [facility] Last Admin: 08/03/17 09:59 Dose: 50 mg Multi-Ingredient Cream (Hydrocerin Cream) 0 ea TOP DAILY [facility] Last Admin: 08/03/17 10:00 Dose: 1 applic Oxycodone/Acetaminophen (Percocet 10/325 Mg Tab) 1 tab PO Q4H PRN PRN Reason: Pain, moderate (4-7) Last Admin: 08/03/17 08:27 Dose: 1 tab Potassium Chloride (K-Dur 20 Meq Er Tab) 40 meq PO ONCE ONE Stop: 08/03/17 13:01 Sitagliptin Phosphate (Januvia) 100 mg PO DAILY [facility] Last Admin: 08/03/17 09:58 Dose: 100 mg Spironolactone (Aldactone) 25 mg PO BID [facility] Last Admin: 08/03/17 09:58 Dose: 25 mg - Labs Labs: 08/02/17 06:00 08/03/17 09:00 PT 14.5 SECONDS (9.4-12.5) H 07/31/17 13:15 INR 1.31 (0.93-1.08) H 07/31/17 13:15 APTT 38.5 Seconds (25.1-36.5) H 07/31/17 13:15 - Constitutional Appears: Non-toxic, No Acute Distress - Extremities Exam Additional comments: Dressing to RLE c/d/i, no dressing to LLE VASC: DP and PT pulses nonpalpable however dopplerable . CFT <3 seconds to all digits b/l. Temperature gradient warm to warm. +1 pitting edema noted NEURO: Gross sensation diminished bilaterally. DERM: Weeping noted to medial aspect of right lower leg, periwound maceration noted; absent full thickness ulcerations; absent cellulitis, malodor, fluctuance , abscess. No open wounds present to LLE. ORTHO: No pain on palpation noted to bilateral LE. - Neurological Exam Neurological Exam: Alert, Awake, Oriented x3 - Psychiatric Exam Psychiatric exam: Normal Affect, Normal Mood Assessment and Plan - Assessment and Plan (Free Text) Assessment: 57 year old male with chronic stasis ulcerations to lower extremity Plan: Patient S&E at bedside Plan discussed with attending, Dr. Kaur afebrile, absent leukocytosis Hycrocin cream applied to b/l lower extremities and both wrapped with ABD, kerlix Continue local wound care and leg elevation Continue IV abx Pain mgmt per medicine Stable per podiatry, will follow <Andres Kaur - Last Filed: 08/07/17 08:11> Objective - Vital Signs/Intake and Output Vital Signs (last 24 hours): Temp Pulse Resp BP Pulse Ox 98.6 F 78 19 104/68 98 08/06/17 16:00 08/06/17 16:00 08/06/17 16:00 08/06/17 16:00 08/06/17 16:00 Intake and Output: 08/07/17 08/07/17 06:59 18:59 Intake Total 720 0 Output Total 500 425 Balance 220 -425 - Medications Medications: Current Medications Alprazolam (Xanax) 1 mg PO BID [facility] PRN Reason: Protocol Last Admin: 08/06/17 17:35 Dose: 1 mg Atenolol (Tenormin) 25 mg PO BID [facility] Last Admin: 08/06/17 17:35 Dose: 25 mg Atorvastatin Calcium (Lipitor) 80 mg PO DIN [facility] Last Admin: 08/06/17 17:35 Dose: 80 mg Dabigatran (Pradaxa) 150 mg PO BID [facility] PRN Reason: Protocol Last Admin: 08/06/17 17:35 Dose: 150 mg Furosemide (Lasix) 40 mg IV 0800,1400 [facility] Last Admin: 08/06/17 14:44 Dose: 40 mg Ampicillin Sodium/Sulbactam (Sodium 1.5 gm/ Sodium Chloride) 100 mls @ 200 mls/ hr IVPB Q6 [facility] PRN Reason: Protocol Last Admin: 08/07/17 05:42 Dose: 200 mls/hr Insulin Human Regular (Humulin R Low) 0 units SC ACHS [facility] PRN Reason: Protocol Last Admin: 08/07/17 07:49 Dose: Not Given Metolazone (Zaroxolyn) 5 mg PO DAILY [facility] Stop: 08/09/17 23:59 Last Admin: 08/06/17 09:55 Dose: 5 mg Multi-Ingredient Cream (Hydrocerin Cream) 0 ea TOP DAILY [facility] Last Admin: 08/06/17 11:00 Dose: 1 applic Oxycodone/Acetaminophen (Percocet 10/325 Mg Tab) 1 tab PO Q4H PRN PRN Reason: Pain, severe (8-10) Last Admin: 08/07/17 03:52 Dose: 1 tab Potassium Chloride (K-Dur 20 Meq Er Tab) 20 meq PO BRK [facility] Last Admin: 08/06/17 08:41 Dose: 20 meq Sitagliptin Phosphate (Januvia) 100 mg PO DAILY [facility] Last Admin: 08/06/17 09:55 Dose: 100 mg Spironolactone (Aldactone) 25 mg PO BID [facility] Last Admin: 08/06/17 17:35 Dose: 25 mg - Labs Labs: 08/02/17 06:00 08/07/17 06:10 PT 14.5 SECONDS (9.4-12.5) H 07/31/17 13:15 INR 1.31 (0.93-1.08) H 07/31/17 13:15 APTT 38.5 Seconds (25.1-36.5) H 07/31/17 13:15 Attending/Attestation - Attestation I have personally seen and examined this patient.: Yes I have fully participated in the care of the patient.: Yes I have reviewed all pertinent clinical information, including history, physical exam and plan: Yes
--- NOTE | 2017-08-03 21:03 | PN ---
DATE: 08/03/2017 LOCATION: Patient in room 277, bed 1. REASON FOR CONSULTTION AND FOLLOWUP: Shortness of breath, rule out CHF, atrial fibrillation, morbid obesity. SUBJECTIVE: Patient is sitting on the bedside. Denies any chest pain, shortness of breath, or palpitation. PHYSICAL EXAMINATION VITAL SIGNS: Blood pressure 138/60, respirations 20, pulse 88, temperature 97.1. HEENT: Head is normocephalic. Eyes; pupils are normal. Conjunctivae normal. Nose and throat normal. NECK: JVP low. Carotid equal. THROAX: AP diameter normal. LUNGS: No significant rales. CARDIOVASCULAR: S1, S2. ABDOMEN: Protuberant. EXTREMITIES: Legs are wrapped due to swelling on the legs. LABORATORY DATA: WBC 9.2, hemoglobin 12.7, hematocrit 38.5, platelets 258. Sodium 135, potassium this morning 2.9, repeat one 3.3, BUN 26, creatinine 1.1, random sugar 89, calcium 8.7, phosphorus 3.9, magnesium 1.8. DIAGNOSES: 1. Acute decompensated congestive heart failure due to left ventricular diastolic dysfunction. Last echo 12/17/2016 showed EF 55%, right ventricular systolic pressure of 22 mmHg, trace mitral regurgitation, mild tricuspid regurgitation. Patient has chronic leg edema. Last MUGA scan, 12/18/2016 showed ejection fraction 64%. Last catheterization 07/12/2003 showed nonobstructive coronary artery disease, ejection fraction of 65%. Patient also morbid obesity, diabetes, hypertension, hyperlipidemia, chronic leg edema, leg ulcers, 3+ pedal edema, history of chronic atrial fibrillation, chronic obstructive pulmonary disease, morbid obesity. PLAN: Patient is on spironolactone 25 b.i.d., Januvia 100 daily, potassium 40 mEq twice given today, furosemide 40 mg b.i.d., Lipitor 80 mg daily, metoprolol 50 b.i.d., Unasyn 1.5 g IV q 6 hours, Zaroxolyn 5 mg p.o. daily, piperacillin/tazobactam 3.375 mg one stat dose was given on 07/31/2017. We will repeat SMA-7, magnesium, phosphorus in morning. We will continue present therapy. Jalen Rogers MD [facility] # [id number]
[2017-08-04] MEDS: Oxycodone/Acetaminophen 10/325 mg Tab PO PRN ×5 (00:16→19:27)
[2017-08-04 07:21] LABS: BLOOD UREA NITROGEN 25 mg/dL (7-21); CALCIUM 8.5 mg/dL (8.4-10.5); CARBON DIOXIDE 31 mmol/L (21-33); CHLORIDE 90 mmol/L (98-107); GFR AFRICAN-AMERICAN > 60; GLUCOSE,RANDOM 121 mg/dL (70-110); MAGNESIUM 1.7 mg/dL (1.7-2.2); PHOSPHOROUS 3.8 mg/dL (2.5-4.5); POTASSIUM 3.3 mmol/L (3.6-5.0); SODIUM 132 mmol/L (132-148)
[2017-08-04] MEDS: Insulin Reg-LOW-Coverage SC SCH ×4 (07:51→22:00)
[2017-08-04] MEDS: Hydrocerin(120 gm) TOP SCH (09:46)
[2017-08-04] MEDS ORDERED: Potassium Chloride 40 mEq/30 ml LIQ UD PO ONE (09:52)
--- NOTE | 2017-08-04 09:57 | CP.PCM.PN ---
Subjective - Date & Time of Evaluation Date of Evaluation: 08/04/17 Time of Evaluation: 09:35 - Subjective Subjective: OOB in chair, NAD, periods of tachycardia unrelated to physical activity, denies chest pain, no SOB, c/o some WALTERS Objective - Vital Signs/Intake and Output Vital Signs (last 24 hours): Temp Pulse Resp BP Pulse Ox 98.1 F 123 H 19 120/72 97 08/04/17 06:00 08/04/17 09:45 08/04/17 06:00 08/04/17 07:51 08/04/17 06:00 Intake and Output: 08/04/17 08/04/17 06:59 18:59 Intake Total 600 Output Total 1000 Balance -400 - Medications Medications: Current Medications Alprazolam (Xanax) 1 mg PO BID [facility] PRN Reason: Protocol Last Admin: 08/04/17 09:45 Dose: 1 mg Atorvastatin Calcium (Lipitor) 80 mg PO DIN [facility] Last Admin: 08/03/17 17:20 Dose: 80 mg Dabigatran (Pradaxa) 150 mg PO BID [facility] PRN Reason: Protocol Last Admin: 08/04/17 09:45 Dose: 150 mg Furosemide (Lasix) 40 mg IV 0800,1400 [facility] Last Admin: 08/04/17 07:51 Dose: 40 mg Ampicillin Sodium/Sulbactam (Sodium 1.5 gm/ Sodium Chloride) 100 mls @ 200 mls/ hr IVPB Q6 [facility] PRN Reason: Protocol Last Admin: 08/04/17 06:01 Dose: 200 mls/hr Insulin Human Regular (Humulin R Low) 0 units SC ACHS [facility] PRN Reason: Protocol Last Admin: 08/04/17 07:51 Dose: Not Given Metoprolol Tartrate (Lopressor) 50 mg PO BID [facility] Last Admin: 08/04/17 09:45 Dose: 50 mg Multi-Ingredient Cream (Hydrocerin Cream) 0 ea TOP DAILY [facility] Last Admin: 08/04/17 09:46 Dose: 1 applic Oxycodone/Acetaminophen (Percocet 10/325 Mg Tab) 1 tab PO Q4H PRN PRN Reason: Pain, moderate (4-7) Last Admin: 08/04/17 07:52 Dose: 1 tab Potassium Chloride (Potassium Chloride Oral Soln) 40 meq PO ONCE ONE Stop: 08/04/17 09:53 Sitagliptin Phosphate (Januvia) 100 mg PO DAILY [facility] Last Admin: 08/04/17 09:45 Dose: 100 mg Spironolactone (Aldactone) 25 mg PO BID [facility] Last Admin: 08/04/17 09:45 Dose: 25 mg - Labs Labs: 08/02/17 06:00 08/04/17 06:45 PT 14.5 SECONDS (9.4-12.5) H 07/31/17 13:15 INR 1.31 (0.93-1.08) H 07/31/17 13:15 APTT 38.5 Seconds (25.1-36.5) H 07/31/17 13:15 - Respiratory Exam Respiratory Exam: Clear to Ausculation Bilateral, NORMAL BREATHING PATTERN - Cardiovascular Exam Cardiovascular Exam: Tachycardia, REGULAR RHYTHM - GI/Abdominal Exam GI & Abdominal Exam: Soft, Normal Bowel Sounds - Extremities Exam Extremities Exam: Pedal Edema - Neurological Exam Neurological Exam: Alert, Awake - Skin Skin Exam: Dry, Warm Assessment and Plan (1) Paroxysmal A-fib Status: Chronic (2) CHF (congestive heart failure) Status: Acute (3) Cellulitis Status: Acute (4) COPD (chronic obstructive pulmonary disease) Status: Chronic (5) Obstructive sleep apnea Status: Chronic (6) Hypokalemia Status: Acute - Assessment and Plan (Free Text) Plan: potassium supplementation, continue IV Abx/wound care Dr. Meadows, cardiology follow-up, social work for discharge planning
--- NOTE | 2017-08-04 10:54 | CP.PCM.PN ---
Subjective - Date & Time of Evaluation Date of Evaluation: 08/04/17 Time of Evaluation: 10:20 - Subjective Subjective: Podiatry Progress Note - Dr. Meadows 57 year old male patient seen at bedside this AM for b/l leg ulcerations/ drainage. Pt seen resting comfortably in bed. Does complain of some drainage to right leg dressing last night which was changed in the evening. Denies any f/n/v /c/sob/cp at this time. Offers no other complaints at present. Objective - Vital Signs/Intake and Output Vital Signs (last 24 hours): Temp Pulse Resp BP Pulse Ox 98.1 F 123 H 19 120/72 97 08/04/17 06:00 08/04/17 09:45 08/04/17 06:00 08/04/17 07:51 08/04/17 06:00 Intake and Output: 08/04/17 08/04/17 06:59 18:59 Intake Total 600 Output Total 1000 Balance -400 - Medications Medications: Current Medications Alprazolam (Xanax) 1 mg PO BID [facility] PRN Reason: Protocol Last Admin: 08/04/17 09:45 Dose: 1 mg Atorvastatin Calcium (Lipitor) 80 mg PO DIN [facility] Last Admin: 08/03/17 17:20 Dose: 80 mg Dabigatran (Pradaxa) 150 mg PO BID [facility] PRN Reason: Protocol Last Admin: 08/04/17 09:45 Dose: 150 mg Furosemide (Lasix) 40 mg IV 0800,1400 [facility] Last Admin: 08/04/17 07:51 Dose: 40 mg Ampicillin Sodium/Sulbactam (Sodium 1.5 gm/ Sodium Chloride) 100 mls @ 200 mls/ hr IVPB Q6 [facility] PRN Reason: Protocol Last Admin: 08/04/17 06:01 Dose: 200 mls/hr Insulin Human Regular (Humulin R Low) 0 units SC ACHS [facility] PRN Reason: Protocol Last Admin: 08/04/17 07:51 Dose: Not Given Metoprolol Tartrate (Lopressor) 50 mg PO BID [facility] Last Admin: 08/04/17 09:45 Dose: 50 mg Multi-Ingredient Cream (Hydrocerin Cream) 0 ea TOP DAILY [facility] Last Admin: 08/04/17 09:46 Dose: 1 applic Oxycodone/Acetaminophen (Percocet 10/325 Mg Tab) 1 tab PO Q4H PRN PRN Reason: Pain, moderate (4-7) Last Admin: 08/04/17 07:52 Dose: 1 tab Sitagliptin Phosphate (Januvia) 100 mg PO DAILY [facility] Last Admin: 08/04/17 09:45 Dose: 100 mg Spironolactone (Aldactone) 25 mg PO BID [facility] Last Admin: 08/04/17 09:45 Dose: 25 mg - Labs Labs: 08/02/17 06:00 08/04/17 06:45 PT 14.5 SECONDS (9.4-12.5) H 07/31/17 13:15 INR 1.31 (0.93-1.08) H 07/31/17 13:15 APTT 38.5 Seconds (25.1-36.5) H 07/31/17 13:15 - Constitutional Appears: Non-toxic, No Acute Distress - Extremities Exam Additional comments: Dressing to B/L lower ext are c/d/i VASC: DP and PT pulses nonpalpable however dopplerable . CFT <3 seconds to all digits b/l. Temperature gradient warm to warm. +1 pitting edema noted NEURO: Gross sensation diminished bilaterally. DERM: Weeping noted to medial aspect of right lower leg (less today), absent full thickness ulcerations; absent cellulitis, malodor, fluctuance, abscess. No open wounds present to LLE. ORTHO: No pain on palpation noted to bilateral LE. - Neurological Exam Neurological Exam: Alert, Awake, Oriented x3 - Psychiatric Exam Psychiatric exam: Normal Affect, Normal Mood Assessment and Plan - Assessment and Plan (Free Text) Assessment: 57 year old male with chronic stasis ulcerations to lower extremity Plan: Patient S&E at bedside Plan discussed with attending, Dr. Meadows Afebrile, absent leukocytosis Hycrocerin cream applied to b/l lower extremities and both wrapped with ABD, kerlix Continue local wound care and leg elevation Continue IV abx Pain mgmt per medicine Stable per podiatry, will follow Pt to follow up with Dr. Meadows in the wound care center after discharge
[2017-08-04] MEDS ORDERED: Potassium Chloride 20 mEq ER Tab PO ONE (17:43)
--- NOTE | 2017-08-04 23:20 | PN ---
DATE 08/04/2017 Patient room 277, bed 1. REASON FOR CONSULTATION AND FOLLOWUP: Shortness of breath, rule out CHF, atrial fibrillation and morbid obesity. SUBJECTIVE: Patient sitting in bed comfortably. Denies chest pain, shortness of breath or palpitation. PHYSICAL EXAMINATION: VITAL SIGNS: Blood pressure 131/78, respirations 17, pulse 125 per minute, irregular and temperature 98.2. HEENT: Head is normocephalic. Eyes; pupils are normal. Conjunctivae normal. NECK: JVP is low. Carotid equal. THORAX: AP diameter normal. LUNGS: No significant rales. CARDIOVASCULAR: S1, S2. ABDOMEN: Protuberant. No organomegaly. EXTREMITIES: The patient states legs have been wrapped in dressing. LABORATORY DATA: WBC 9.2, hemoglobin 12.7, hematocrit 38.5, platelets 258. Sodium 132, potassium 3.3, BUN 25, creatinine 1.1, sugar 126. Calcium, phosphorus, and magnesium is normal. DIAGNOSES: 1. Acute decompensated congestive heart failure due to left ventricular diastolic dysfunction, atrial fibrillation, rapid rate, morbid obesity, edema of legs, venous stasis. Last echo on 12/17/2016, showed ejection fraction 55%, right ventricular systolic pressure 22 mmHg and mild tricuspid regurgitation. MUGA scan on 12/18/2016 showed ejection fraction 64%. Catheterization 07/12/2003 showed nonobstructive coronary artery disease, ejection fraction 65%. Patient has also diabetes, hypertension, hyperlipidemia, chronic leg edema, leg ulcers, chronic atrial fibrillation, chronic obstructive pulmonary disease, and morbid obesity. PLAN: Patient still have rapid rates, so we will stop the Lopressor. We will give atenolol 25 mg p.o. now and 25 mg b.i.d. to try to control the heart rate. Patient has spironolactone 25 mg b.i.d. and Januvia 100 daily. Patient received potassium 40 mg p.o. once today. We will give a second dose of potassium 40 and we will repeat labs in the morning. Patient on Pradaxa 150 mg p.o., b.i.d., Lipitor 80 mg daily, furosemide 40 mg IV b.i.d. and Xanax 12 mg p.o. b.i.d. We will repeat labs in morning. I will continue diuresis. We will follow. Jalen Rogers MD [facility] # [id number]
[2017-08-05] MEDS: Oxycodone/Acetaminophen 10/325 mg Tab PO PRN ×4 (03:40→17:56)
[2017-08-05 07:14] LABS: BLOOD UREA NITROGEN 30 mg/dL (7-21); CALCIUM 8.7 mg/dL (8.4-10.5); CARBON DIOXIDE 35 mmol/L (21-33); CHLORIDE 89 mmol/L (98-107); GFR AFRICAN-AMERICAN > 60; GLUCOSE,RANDOM 123 mg/dL (70-110); MAGNESIUM 1.9 mg/dL (1.7-2.2); PHOSPHOROUS 4.6 mg/dL (2.5-4.5); POTASSIUM 3.4 mmol/L (3.6-5.0); SODIUM 134 mmol/L (132-148)
[2017-08-05] MEDS ORDERED: Potassium Chloride 20 mEq ER Tab PO ONE ×2 (08:46→13:34)
--- NOTE | 2017-08-05 08:50 | CP.PCM.PN ---
Subjective - Date & Time of Evaluation Date of Evaluation: 08/05/17 Time of Evaluation: 08:30 - Subjective Subjective: c/o bilat foot/leg discomfort, swelling, denies chest pain, no SOB Objective - Vital Signs/Intake and Output Vital Signs (last 24 hours): Temp Pulse Resp BP Pulse Ox 98.7 F 84 20 128/69 96 08/05/17 06:00 08/05/17 06:00 08/05/17 06:00 08/05/17 06:00 08/05/17 06:00 Intake and Output: 08/05/17 08/05/17 06:59 18:59 Intake Total 720 Output Total 800 Balance -80 - Medications Medications: Current Medications Alprazolam (Xanax) 1 mg PO BID [facility] PRN Reason: Protocol Last Admin: 08/04/17 17:37 Dose: 1 mg Atenolol (Tenormin) 25 mg PO BID [facility] Last Admin: 08/04/17 17:37 Dose: 25 mg Atorvastatin Calcium (Lipitor) 80 mg PO DIN [facility] Last Admin: 08/04/17 17:37 Dose: 80 mg Dabigatran (Pradaxa) 150 mg PO BID [facility] PRN Reason: Protocol Last Admin: 08/04/17 17:37 Dose: 150 mg Furosemide (Lasix) 40 mg IV 0800,1400 [facility] Last Admin: 08/04/17 14:07 Dose: 40 mg Ampicillin Sodium/Sulbactam (Sodium 1.5 gm/ Sodium Chloride) 100 mls @ 200 mls/ hr IVPB Q6 [facility] PRN Reason: Protocol Last Admin: 08/05/17 06:48 Dose: 200 mls/hr Insulin Human Regular (Humulin R Low) 0 units SC ACHS [facility] PRN Reason: Protocol Last Admin: 08/04/17 22:00 Dose: Not Given Multi-Ingredient Cream (Hydrocerin Cream) 0 ea TOP DAILY [facility] Last Admin: 08/04/17 09:46 Dose: 1 applic Oxycodone/Acetaminophen (Percocet 10/325 Mg Tab) 1 tab PO Q6H PRN PRN Reason: Pain, severe (8-10) Last Admin: 08/05/17 03:40 Dose: 1 tab Potassium Chloride (K-Dur 20 Meq Er Tab) 20 meq PO BRK [facility] Sitagliptin Phosphate (Januvia) 100 mg PO DAILY [facility] Last Admin: 08/04/17 09:45 Dose: 100 mg Spironolactone (Aldactone) 25 mg PO BID [facility] Last Admin: 08/04/17 17:37 Dose: 25 mg - Labs Labs: 08/02/17 06:00 08/05/17 05:15 PT 14.5 SECONDS (9.4-12.5) H 07/31/17 13:15 INR 1.31 (0.93-1.08) H 07/31/17 13:15 APTT 38.5 Seconds (25.1-36.5) H 07/31/17 13:15 - Respiratory Exam Respiratory Exam: Clear to Ausculation Bilateral, NORMAL BREATHING PATTERN - Cardiovascular Exam Cardiovascular Exam: REGULAR RHYTHM - GI/Abdominal Exam GI & Abdominal Exam: Soft, Normal Bowel Sounds - Extremities Exam Extremities Exam: Pedal Edema - Neurological Exam Neurological Exam: Alert, Awake - Skin Skin Exam: Dry, Warm Assessment and Plan (1) Paroxysmal A-fib Status: Chronic (2) CHF (congestive heart failure) Status: Acute (3) Cellulitis Status: Acute (4) COPD (chronic obstructive pulmonary disease) Status: Chronic (5) Obstructive sleep apnea Status: Chronic (6) Hypokalemia Status: Acute - Assessment and Plan (Free Text) Plan: continue wound care?IV Abx, follow-up Dr. Meadows for wound care, cardiology follow-up, potassium supplement ordered, will obtain arterial doppler of lower extrem
[2017-08-05] MEDS: Insulin Reg-LOW-Coverage SC SCH ×4 (09:21→21:08)
[2017-08-05] MEDS: Potassium Chloride 20 mEq ER Tab PO SCH (09:32)
--- NOTE | 2017-08-05 12:45 | PN ---
DATE: 08/05/2017 SUBJECTIVE: Mr. Doan is a 57-year-old gentleman with known stasis changes with ulcerations bilaterally. He is admitted for shortness of breath and increasing edema. I reviewed his IGNACIO/PVR exam. The ABIs are mildly abnormal. The PVR waveforms are pulsatile throughout. There is mild bilateral tibial disease. PAST MEDICAL HISTORY: Includes CHF, paroxysmal atrial fibrillation, hypertension, COPD, sleep apnea, diabetes, morbid obesity, and diabetic neuropathy. At the present time, the edema should be treated with wound care, elevation and compression. Further arterial evaluation at this time is not warranted. Jori Alejandra MD MTDD
[2017-08-05] MEDS ORDERED: metOLazone 5 MG TAB PO ONE (13:35)
--- NOTE | 2017-08-05 15:11 | US ---
HISTORY: Leg pain and swelling. Evaluate for DVT PHYSICIAN(S): Jori Alejandra MD. TECHNIQUE: Duplex sonography and color-flow Doppler with graded compression were used to evaluate the deep venous systems of both lower extremities. The exam is very limited due to body habitus and edema the lower femoral veins and tibial veins are not well seen FINDINGS: The visualized deep venous systems of both lower extremities are sonographically normal and compressible. Normal wave forms and augmentation are seen. There is no sonographic evidence for deep venous thrombosis in the visualized segments of both lower extremities. IMPRESSION: No sonographic evidence for deep venous thrombosis in the visualized segments of both lower extremities. Very limited study.
[2017-08-05] MEDS: Hydrocerin(120 gm) TOP SCH (15:30)
--- NOTE | 2017-08-05 17:15 | CP.PCM.PN ---
Subjective - Date & Time of Evaluation Date of Evaluation: 08/05/17 Time of Evaluation: 17:12 - Subjective Subjective: Podiatry Progress Note for Dr. Meadows 57 year old male seen at bedside with attending Dr. Meadows for b/l leg ulcerations/drainage. Patient is seen laying comfortably in bed, AA0x3, and in NAD. Patient is seen with dressing clean, dry, intact. Nursing changed dressing today. Patient denies acute overnight events. Patient denies n/v/sob/cp/chills or f. No new complaints. Objective - Vital Signs/Intake and Output Vital Signs (last 24 hours): Temp Pulse Resp BP Pulse Ox 98.7 F 116 H 20 109/61 96 08/05/17 06:00 08/05/17 14:00 08/05/17 06:00 08/05/17 13:38 08/05/17 06:00 Intake and Output: 08/05/17 08/05/17 06:59 18:59 Intake Total 720 Output Total 800 Balance -80 - Medications Medications: Current Medications Alprazolam (Xanax) 1 mg PO BID [facility] PRN Reason: Protocol Last Admin: 08/05/17 09:38 Dose: 1 mg Atenolol (Tenormin) 25 mg PO BID [facility] Last Admin: 08/05/17 09:27 Dose: 25 mg Atorvastatin Calcium (Lipitor) 80 mg PO DIN [facility] Last Admin: 08/04/17 17:37 Dose: 80 mg Dabigatran (Pradaxa) 150 mg PO BID [facility] PRN Reason: Protocol Last Admin: 08/05/17 09:26 Dose: 150 mg Furosemide (Lasix) 40 mg IV 0800,1400 [facility] Last Admin: 08/05/17 13:38 Dose: 40 mg Ampicillin Sodium/Sulbactam (Sodium 1.5 gm/ Sodium Chloride) 100 mls @ 200 mls/ hr IVPB Q6 [facility] PRN Reason: Protocol Last Admin: 08/05/17 13:37 Dose: 200 mls/hr Insulin Human Regular (Humulin R Low) 0 units SC ACHS [facility] PRN Reason: Protocol Last Admin: 08/05/17 13:37 Dose: 1 units Metolazone (Zaroxolyn) 5 mg PO DAILY [facility] Stop: 08/09/17 23:59 Multi-Ingredient Cream (Hydrocerin Cream) 0 ea TOP DAILY [facility] Last Admin: 08/04/17 09:46 Dose: 1 applic Oxycodone/Acetaminophen (Percocet 10/325 Mg Tab) 1 tab PO Q4H PRN PRN Reason: Pain, severe (8-10) Last Admin: 08/05/17 13:37 Dose: 1 tab Potassium Chloride (K-Dur 20 Meq Er Tab) 20 meq PO BRK [facility] Last Admin: 08/05/17 09:32 Dose: 20 meq Sitagliptin Phosphate (Januvia) 100 mg PO DAILY [facility] Last Admin: 08/05/17 09:27 Dose: 100 mg Spironolactone (Aldactone) 25 mg PO BID [facility] Last Admin: 08/05/17 09:27 Dose: 25 mg - Labs Labs: 08/02/17 06:00 08/05/17 05:15 PT 14.5 SECONDS (9.4-12.5) H 07/31/17 13:15 INR 1.31 (0.93-1.08) H 07/31/17 13:15 APTT 38.5 Seconds (25.1-36.5) H 07/31/17 13:15 - Constitutional Appears: Well, Non-toxic, No Acute Distress - Extremities Exam Additional comments: Dressing is c/d/i without strikethrough noted to the dressing. Temperature gradient WNL. CFT <3 seconds to all digits b/l. No pain with palpation. - Neurological Exam Neurological Exam: Alert, Awake, Oriented x3 - Psychiatric Exam Psychiatric exam: Normal Affect, Normal Mood Assessment and Plan - Assessment and Plan (Free Text) Assessment: 57 year old male with chronic stasis ulcerations to lower extremity-improving Plan: Patient is seen and evaluated at bedside with attending Plan discussed in detail with attending, Dr. Meadows Labs, charts, vitals reviewed- afebrile, absent leukocytosis (WBC=9.2 on ) Dressing kept c/d/i Will change dressing tomorrow: Hycrocerin cream applied to b/l lower extremities and both wrapped with ABD, kerlix Continue local wound care and leg elevation Continue IV abx Pain mgmt per medicine PT elevate and treat- recommendations appreciated Stable per podiatry, will follow Pt to follow up with Dr. Meadows in the wound care center after discharge
[2017-08-06] MEDS: Oxycodone/Acetaminophen 10/325 mg Tab PO PRN ×5 (00:39→23:46)
[2017-08-06 06:42] LABS: BLOOD UREA NITROGEN 36 mg/dL (7-21); CALCIUM 8.7 mg/dL (8.4-10.5); CARBON DIOXIDE 31 mmol/L (21-33); CHLORIDE 90 mmol/L (98-107); GFR AFRICAN-AMERICAN > 60; GLUCOSE,RANDOM 101 mg/dL (70-110); PHOSPHOROUS 4.6 mg/dL (2.5-4.5); POTASSIUM 3.4 mmol/L (3.6-5.0); SODIUM 134 mmol/L (132-148)
[2017-08-06] MEDS: Insulin Reg-LOW-Coverage SC SCH ×4 (08:16→22:45)
[2017-08-06] MEDS: Potassium Chloride 20 mEq ER Tab PO SCH (08:41)
[2017-08-06] MEDS: metOLazone 5 MG TAB PO SCH (09:55)
--- NOTE | 2017-08-06 10:48 | PN ---
DATE: 08/05/2017 REASON FOR CONSULTATION AND FOLLOWUP: Shortness of breath, chronic atrial fibrillation, rule out CHF, morbid obesity, chronic leg edema. SUBJECTIVE: The patient denies any chest pain, shortness of breath, or any palpitation. Still leg appears swollen. PHYSICAL EXAMINATION: VITAL SIGNS: As follows, temperature afebrile, heart rate 84, blood pressure ____. HEENT: PERRLA. Extraocular muscles intact. NECK: Supple. No carotid bruits or thyromegaly. CHEST: Clear to auscultation. HEART: S1, S2 regular. ABDOMEN: Soft. EXTREMITIES: Clubbing and cyanosis negative. LABORATORY DATA: Blood workup as follows: WBC ____, hemoglobin ____, hematocrit 38.5, and platelet count 258. Chemistry shows sodium 134, potassium 3.4, chloride 89, carbon dioxide 35, anion gap of 14, BUN 30, and creatinine 1.4. IMPRESSION: Hypokalemia, morbid obesity, obstructive sleep apnea. The patient had ____ done yesterday that showed mildly abnormal ____ mild bilateral tibial disease, diabetes, hypertension, hyperlipidemia, morbid obesity, chronic atrial fibrillation, ____ last echo on 12/17/2016, ejection fraction 55%, right ventricular systolic pressure 22 mmHg, mild tricuspid regurgitation. Multigated acquisition scan on 12/18/2016, ejection fraction 64%. Cardiac catheterization on 07/12/2013, nonobstructive coronary artery disease, ejection fraction 65%. RECOMMENDATIONS: Aggressive medical treatment. The patient was on IV Lasix as well as Zaroxolyn was added. Continue atenolol. Continue Pradaxa for AFib. Monitor electrolytes. Supplement as needed. We will supplement potassium. The patient was on Zaroxolyn. We will add more Zaroxolyn from today. Again, I will follow with you. We will discontinue telemetry. We will give K-Dur 40 now and another 40 at 5 p.m. and Zaroxolyn now. We will give one Zaroxolyn now and then start from tomorrow for 2 to 3 days. Monitor electrolytes. Monitor BUN and creatinine. We will follow with you. Thank you Dr. Leiva for providing us the opportunity in taking care of your patient, Franki Flores. . We will follow with you. We will discontinue telemetry. Jalen Vargas MD
[2017-08-06] MEDS: Hydrocerin(120 gm) TOP SCH (11:00)
--- NOTE | 2017-08-06 14:32 | PN ---
DATE: REASON FOR CONSULTATION AND FOLLOWUP: Shortness of breath, chronic atrial fibrillation, morbid obesity, and leg edema. SUBJECTIVE: The patient denies any chest pain, shortness of breath or any palpitation. PHYSICAL EXAMINATION: VITAL SIGNS: As follows, temperature afebrile, heart rate 99, and blood pressure 104/72. HEENT: PERRLA. Extraocular muscles intact. NECK: Supple. No carotid bruits or thyromegaly. CHEST: Clear to auscultation. HEART: S1, S2 regular. ABDOMEN: Soft. EXTREMITIES: Clubbing and cyanosis negative. LABORATORY DATA: Blood workup as follows: WBC 9.8, hemoglobin 12.7, hematocrit 38.5, and platelet count 258. Chemistry shows sodium 134, potassium 3.4, chloride 90, carbon dioxide 30, anion gap of 16, BUN 26, and creatinine 1.4. IMPRESSION: Gross fluid overload, morbid obesity, decompensated heart failure secondary to mild systolic and diastolic dysfunction, and morbid obesity. Last echo showed ejection fraction 55%. MUGA scan shows more than 64%. Cardiac catheterization 07/12/2013, nonobstructive coronary artery disease, ejection fraction 65%, morbid obesity, chronic obstructive pulmonary disease, and chronic atrial fibrillation on Pradaxa. RECOMMENDATIONS: Monitor electrolytes closely. Supplement potassium. Continue Zaroxolyn. Continue IV Lasix twice. We will follow with you closely. We will give another 40 at 4:[address] Leiva for providing us the opportunity in taking care of your patient, Mark Doan. We will repeat SMA-7 in the morning. Weight now is 343, admitting was 349, so the patient lost 6 pounds, having good diet. We will follow with you. Jalen Vargas MD
[2017-08-06] MEDS ORDERED: Potassium Chloride 20 mEq ER Tab PO ONE (15:00)
--- NOTE | 2017-08-06 21:51 | CP.PCM.PN ---
Subjective - Date & Time of Evaluation Date of Evaluation: 08/06/17 Time of Evaluation: 09:30 - Subjective Subjective: OOB in chair, no acute distress, denies chest pain, no shortness of breath Objective - Vital Signs/Intake and Output Vital Signs (last 24 hours): Temp Pulse Resp BP Pulse Ox 98.6 F 78 19 104/68 98 08/06/17 16:00 08/06/17 16:00 08/06/17 16:00 08/06/17 16:00 08/06/17 16:00 - Medications Medications: Current Medications Alprazolam (Xanax) 1 mg PO BID [facility] PRN Reason: Protocol Last Admin: 08/06/17 17:35 Dose: 1 mg Atenolol (Tenormin) 25 mg PO BID [facility] Last Admin: 08/06/17 17:35 Dose: 25 mg Atorvastatin Calcium (Lipitor) 80 mg PO DIN [facility] Last Admin: 08/06/17 17:35 Dose: 80 mg Dabigatran (Pradaxa) 150 mg PO BID [facility] PRN Reason: Protocol Last Admin: 08/06/17 17:35 Dose: 150 mg Furosemide (Lasix) 40 mg IV 0800,1400 [facility] Last Admin: 08/06/17 14:44 Dose: 40 mg Ampicillin Sodium/Sulbactam (Sodium 1.5 gm/ Sodium Chloride) 100 mls @ 200 mls/ hr IVPB Q6 [facility] PRN Reason: Protocol Last Admin: 08/06/17 18:31 Dose: 200 mls/hr Insulin Human Regular (Humulin R Low) 0 units SC ACHS [facility] PRN Reason: Protocol Last Admin: 08/06/17 18:17 Dose: Not Given Metolazone (Zaroxolyn) 5 mg PO DAILY [facility] Stop: 08/09/17 23:59 Last Admin: 08/06/17 09:55 Dose: 5 mg Multi-Ingredient Cream (Hydrocerin Cream) 0 ea TOP DAILY [facility] Last Admin: 08/06/17 11:00 Dose: 1 applic Oxycodone/Acetaminophen (Percocet 10/325 Mg Tab) 1 tab PO Q4H PRN PRN Reason: Pain, severe (8-10) Last Admin: 08/06/17 20:25 Dose: 1 tab Potassium Chloride (K-Dur 20 Meq Er Tab) 20 meq PO BRK [facility] Last Admin: 08/06/17 08:41 Dose: 20 meq Sitagliptin Phosphate (Januvia) 100 mg PO DAILY [facility] Last Admin: 08/06/17 09:55 Dose: 100 mg Spironolactone (Aldactone) 25 mg PO BID [facility] Last Admin: 08/06/17 17:35 Dose: 25 mg - Labs Labs: 08/02/17 06:00 08/06/17 05:30 PT 14.5 SECONDS (9.4-12.5) H 07/31/17 13:15 INR 1.31 (0.93-1.08) H 07/31/17 13:15 APTT 38.5 Seconds (25.1-36.5) H 07/31/17 13:15 - Respiratory Exam Respiratory Exam: Clear to Ausculation Bilateral, NORMAL BREATHING PATTERN - Cardiovascular Exam Cardiovascular Exam: REGULAR RHYTHM - GI/Abdominal Exam GI & Abdominal Exam: Soft, Normal Bowel Sounds - Extremities Exam Extremities Exam: Pedal Edema - Neurological Exam Neurological Exam: Alert, Awake, Normal Gait - Skin Skin Exam: Dry, Warm Assessment and Plan (1) Paroxysmal A-fib Status: Chronic (2) CHF (congestive heart failure) Status: Acute (3) Cellulitis Status: Acute (4) COPD (chronic obstructive pulmonary disease) Status: Chronic (5) Obstructive sleep apnea Status: Chronic (6) Hypokalemia Status: Acute - Assessment and Plan (Free Text) Plan: potassium supplementation ordered, monitor lytes, continue cardiology/wound care , PT and social work for discharge planning
[2017-08-07] MEDS: Oxycodone/Acetaminophen 10/325 mg Tab PO PRN ×5 (03:52→21:15)
[2017-08-07 07:28] LABS: BLOOD UREA NITROGEN 35 mg/dL (7-21); CALCIUM 8.5 mg/dL (8.4-10.5); CARBON DIOXIDE 32 mmol/L (21-33); CHLORIDE 91 mmol/L (98-107); GFR AFRICAN-AMERICAN > 60; GLUCOSE,RANDOM 98 mg/dL (70-110); POTASSIUM 3.5 mmol/L (3.6-5.0); SODIUM 134 mmol/L (132-148)
[2017-08-07] MEDS: Insulin Reg-LOW-Coverage SC SCH ×4 (07:49→23:00)
[2017-08-07] MEDS: Potassium Chloride 20 mEq ER Tab PO SCH (08:35)
[2017-08-07 09:32] VITALS: RESP 20
--- NOTE | 2017-08-07 09:35 | CP.PCM.PN ---
Subjective - Date & Time of Evaluation Date of Evaluation: 08/07/17 Time of Evaluation: 09:28 - Subjective Subjective: Podiatry Progress Note for Dr. Meadows 57 y.o male seen at bedside with attending Dr. Meadows for bilaterally stasis ulcerations. Patient is seen sitting comfortably in bed enjoying breakfast, in NAD, and AA0x3. Patient denies acute overnight events. Left dressing is clean, dry, intact. Right dressing is clean and intact with some drainage strikethrough. Patient reports the same type of pain to the lower extremities. Patient denies n/v/cp/chills/f. Patient reports SOB with walking. He reports he has been seeing physical therapy for therapy. Objective - Vital Signs/Intake and Output Vital Signs (last 24 hours): Temp Pulse Resp BP Pulse Ox 98.6 F 78 19 136/80 98 08/06/17 16:00 08/06/17 16:00 08/06/17 16:00 08/07/17 08:35 08/06/17 16:00 Intake and Output: 08/07/17 08/07/17 06:59 18:59 Intake Total 720 0 Output Total 500 425 Balance 220 -425 - Medications Medications: Current Medications Alprazolam (Xanax) 1 mg PO BID [facility] PRN Reason: Protocol Last Admin: 08/06/17 17:35 Dose: 1 mg Atenolol (Tenormin) 25 mg PO BID [facility] Last Admin: 08/06/17 17:35 Dose: 25 mg Atorvastatin Calcium (Lipitor) 80 mg PO DIN [facility] Last Admin: 08/06/17 17:35 Dose: 80 mg Dabigatran (Pradaxa) 150 mg PO BID [facility] PRN Reason: Protocol Last Admin: 08/06/17 17:35 Dose: 150 mg Furosemide (Lasix) 40 mg IV 0800,1400 [facility] Last Admin: 08/07/17 08:35 Dose: 40 mg Ampicillin Sodium/Sulbactam (Sodium 1.5 gm/ Sodium Chloride) 100 mls @ 200 mls/ hr IVPB Q6 [facility] PRN Reason: Protocol Last Admin: 08/07/17 05:42 Dose: 200 mls/hr Insulin Human Regular (Humulin R Low) 0 units SC ACHS [facility] PRN Reason: Protocol Last Admin: 08/07/17 07:49 Dose: Not Given Metolazone (Zaroxolyn) 5 mg PO DAILY [facility] Stop: 08/09/17 23:59 Last Admin: 08/06/17 09:55 Dose: 5 mg Multi-Ingredient Cream (Hydrocerin Cream) 0 ea TOP DAILY [facility] Last Admin: 08/06/17 11:00 Dose: 1 applic Oxycodone/Acetaminophen (Percocet 10/325 Mg Tab) 1 tab PO Q4H PRN PRN Reason: Pain, severe (8-10) Last Admin: 08/07/17 08:35 Dose: 1 tab Potassium Chloride (K-Dur 20 Meq Er Tab) 20 meq PO BRK [facility] Last Admin: 08/07/17 08:35 Dose: 20 meq Sitagliptin Phosphate (Januvia) 100 mg PO DAILY [facility] Last Admin: 08/06/17 09:55 Dose: 100 mg Spironolactone (Aldactone) 25 mg PO BID [facility] Last Admin: 08/06/17 17:35 Dose: 25 mg - Labs Labs: 08/02/17 06:00 08/07/17 06:10 PT 14.5 SECONDS (9.4-12.5) H 07/31/17 13:15 INR 1.31 (0.93-1.08) H 07/31/17 13:15 APTT 38.5 Seconds (25.1-36.5) H 07/31/17 13:15 - Constitutional Appears: Well, Non-toxic, No Acute Distress - Extremities Exam Additional comments: VASC: DP and PT pulses nonpalpable however dopplerable . CFT <3 seconds to all digits b/l. Temperature gradient warm to warm. +1 pitting edema noted NEURO: Gross sensation diminished bilaterally. DERM: Weeping noted to medial aspect of right lower leg- improving; absent full thickness ulcerations; absent cellulitis, malodor, fluctuance, abscess. No open wounds present to LLE. ORTHO: No pain on palpation noted to bilateral LE. - Neurological Exam Neurological Exam: Alert, Awake, Oriented x3 - Psychiatric Exam Psychiatric exam: Normal Affect, Normal Mood Assessment and Plan - Assessment and Plan (Free Text) Assessment: 57 year old male with chronic stasis ulcerations to lower extremity Plan: Patient S&E at bedside Plan discussed with attending, Dr. Meadows Afebrile, absent leukocytosis Lower extremities cleansed with saline, Hycrocerin cream applied to b/l lower extremities, avoided medial aspect of right ankle, and Right LE is dressed with gauze, ABD, kerlix and LARY No dressing needed to the left lower extremity at this time Continue local wound care and leg elevation Continue IV abx Continue w/ physical therapy Pain mgmt per medicine Stable per podiatry, will follow Pt to follow up with Dr. Meadows in the wound care center after discharge
[2017-08-07] MEDS: metOLazone 5 MG TAB PO SCH (09:43)
[2017-08-07] MEDS: Hydrocerin(120 gm) TOP SCH (12:31)
[2017-08-07] MEDS ORDERED: Potassium Chloride 20 mEq ER Tab PO ONE ×2 (15:36→17:30)
--- NOTE | 2017-08-07 15:36 | CP.PCM.PN ---
Subjective - Date & Time of Evaluation Date of Evaluation: 08/07/17 Time of Evaluation: 14:00 - Subjective Subjective: no acute distress, denies chest pain, no shortness of breath Objective - Vital Signs/Intake and Output Vital Signs (last 24 hours): Temp Pulse Resp BP Pulse Ox 99.4 F 64 20 136/80 99 08/07/17 06:00 08/07/17 09:43 08/07/17 06:00 08/07/17 09:43 08/07/17 06:00 Intake and Output: 08/07/17 08/07/17 06:59 18:59 Intake Total 720 0 Output Total 500 425 Balance 220 -425 - Medications Medications: Current Medications Alprazolam (Xanax) 1 mg PO BID [facility] PRN Reason: Protocol Last Admin: 08/07/17 09:43 Dose: 1 mg Atenolol (Tenormin) 25 mg PO BID [facility] Last Admin: 08/07/17 09:43 Dose: 25 mg Atorvastatin Calcium (Lipitor) 80 mg PO DIN [facility] Last Admin: 08/06/17 17:35 Dose: 80 mg Dabigatran (Pradaxa) 150 mg PO BID [facility] PRN Reason: Protocol Last Admin: 08/07/17 09:42 Dose: 150 mg Furosemide (Lasix) 40 mg IV 0800,1400 [facility] Last Admin: 08/07/17 08:35 Dose: 40 mg Ampicillin Sodium/Sulbactam (Sodium 1.5 gm/ Sodium Chloride) 100 mls @ 200 mls/ hr IVPB Q6 [facility] PRN Reason: Protocol Last Admin: 08/07/17 11:21 Dose: 200 mls/hr Insulin Human Regular (Humulin R Low) 0 units SC ACHS [facility] PRN Reason: Protocol Last Admin: 08/07/17 12:30 Dose: Not Given Metolazone (Zaroxolyn) 5 mg PO DAILY [facility] Stop: 08/09/17 23:59 Last Admin: 08/07/17 09:43 Dose: 5 mg Multi-Ingredient Cream (Hydrocerin Cream) 0 ea TOP DAILY [facility] Last Admin: 08/07/17 12:31 Dose: Not Given Oxycodone/Acetaminophen (Percocet 10/325 Mg Tab) 1 tab PO Q4H PRN PRN Reason: Pain, severe (8-10) Last Admin: 08/07/17 12:30 Dose: 1 tab Potassium Chloride (K-Dur 20 Meq Er Tab) 20 meq PO BRK [facility] Last Admin: 08/07/17 08:35 Dose: 20 meq Sitagliptin Phosphate (Januvia) 100 mg PO DAILY [facility] Last Admin: 08/07/17 09:42 Dose: 100 mg Spironolactone (Aldactone) 25 mg PO BID [facility] Last Admin: 08/07/17 09:43 Dose: 25 mg - Labs Labs: 08/02/17 06:00 08/07/17 06:10 PT 14.5 SECONDS (9.4-12.5) H 07/31/17 13:15 INR 1.31 (0.93-1.08) H 07/31/17 13:15 APTT 38.5 Seconds (25.1-36.5) H 07/31/17 13:15 - Respiratory Exam Respiratory Exam: NORMAL BREATHING PATTERN - Cardiovascular Exam Cardiovascular Exam: REGULAR RHYTHM - GI/Abdominal Exam GI & Abdominal Exam: Soft, Normal Bowel Sounds - Extremities Exam Extremities Exam: Pedal Edema - Neurological Exam Neurological Exam: Alert, Awake - Skin Skin Exam: Dry, Warm Assessment and Plan (1) Paroxysmal A-fib Status: Chronic (2) CHF (congestive heart failure) Status: Acute (3) Cellulitis Status: Acute (4) COPD (chronic obstructive pulmonary disease) Status: Chronic (5) Obstructive sleep apnea Status: Chronic (6) Hypokalemia Status: Acute - Assessment and Plan (Free Text) Plan: continue wound care/IV Abx, potassium supplementation ordered
--- NOTE | 2017-08-07 21:03 | PN ---
DATE: 08/07/2017 REASON FOR CONSULTATION AND FOLLOWUP: Shortness of breath, chronic atrial fibrillation, morbid obesity and leg edema. SUBJECTIVE: The patient denies any chest pain, shortness of breath or any palpitation. OBJECTIVE: GENERAL: Not in apparent distress, lying flat on the bed with head flat on the bed. Head is not raised. VITAL SIGNS: Temperature afebrile, heart rate 57, and blood pressure 137/85. HEENT: PERRLA. Extraocular muscles intact. NECK: Supple. No carotid bruits or thyromegaly. CHEST: Clear to auscultation. HEART: S1, S2 irregular. ABDOMEN: Soft. EXTREMITIES: Clubbing and cyanosis negative. Both lower extremity in the dressing, but 2+ pedal edema. LABORATORY DATA: As follows: WBC 9.8, hemoglobin 12.7, hematocrit 38.5, and platelet count 258. Chemistry shows sodium 134, potassium 3.5, chloride 91, carbon dioxide 32, anion gap of 15, BUN 35, and creatinine 1.2. IMPRESSION: Gross fluid overload chronic leg edema, chronic atrial fibrillation, morbid obesity more than 350 pounds on admission, chronic obstructive pulmonary disease, nonobstructive coronary artery disease, status post cardiac catheterization 07/12/2013. Last echo shows ejection fraction 55%, last MUGA scan shows ejection fraction 64%, chronic obstructive pulmonary disease. RECOMMENDATIONS: Continue Pradaxa for atrial fibrillation, moderate electrolyte, supplement potassium. The patient is on Lasix twice, also Zaroxolyn until 08/09/2017, we will aggressive supplement potassium as needed. We will follow with you. We will add magnesium and phosphorous level and I will give K-Dur 40, additionally in addition to given in the morning. Thank you Dr. Leiva for providing us the opportunity in taking care of your patient, Mark Doan. We will follow with you. We will repeat the lab in the morning. Jalen Vargas MD
[2017-08-08] MEDS: Oxycodone/Acetaminophen 10/325 mg Tab PO PRN ×4 (01:15→15:32)
[2017-08-08 06:43] LABS: ALKALINE PHOSPHATASE 60 U/L (38-126); ALT/SGPT 42 U/L (7-56); AST/SGOT 48 U/L (17-59); BILIRUBIN,TOTAL 0.9 mg/dL (0.2-1.3); BLOOD UREA NITROGEN 34 mg/dL (7-21); CARBON DIOXIDE 32 mmol/L (21-33); CHLORIDE 90 mmol/L (98-107); GFR AFRICAN-AMERICAN > 60; GLUCOSE,RANDOM 97 mg/dL (70-110); SODIUM 135 mmol/L (132-148); TOTAL PROTEIN 7.4 g/dL (5.8-8.3)
[2017-08-08] MEDS: Insulin Reg-LOW-Coverage SC SCH ×4 (08:11→22:00)
[2017-08-08] MEDS ORDERED: Unna Boot TOP ONE (09:23)
[2017-08-08] MEDS: Hydrocerin(120 gm) TOP SCH (10:03)
[2017-08-08] MEDS: Potassium Chloride 20 mEq ER Tab PO SCH ×2 (10:03→17:19)
[2017-08-08] MEDS: metOLazone 5 MG TAB PO SCH (10:07)
[2017-08-08] MEDS ORDERED: Potassium Chloride 40 mEq/30 ml LIQ UD PO ONE (13:16)
--- NOTE | 2017-08-08 13:30 | CP.PCM.PN ---
Subjective - Date & Time of Evaluation Date of Evaluation: 08/08/17 Time of Evaluation: 13:27 - Subjective Subjective: Podiatry Progress Note for Dr. Meadows 57 y.o male seen at bedside with attending Dr. Meadows for bilaterally stasis ulcerations. Patient is seen sitting comfortably, in NAD, and AA0x3. Patient denies acute overnight events. Left dressing is clean, dry, intact. Right dressing is c/d/i. P Patient denies n/v/cp/chills/f. No other pedal complaints . Objective - Vital Signs/Intake and Output Vital Signs (last 24 hours): Temp Pulse Resp BP Pulse Ox 98.1 F 101 H 20 123/92 H 98 08/08/17 08:39 08/08/17 10:05 08/08/17 08:39 08/08/17 10:05 08/08/17 08:39 Intake and Output: 08/08/17 08/08/17 06:59 18:59 Intake Total 860 Output Total 1125 Balance -265 - Medications Medications: Current Medications Alprazolam (Xanax) 1 mg PO BID [facility] PRN Reason: Protocol Last Admin: 08/08/17 10:06 Dose: 1 mg Atenolol (Tenormin) 25 mg PO BID [facility] Last Admin: 08/08/17 10:05 Dose: 25 mg Atorvastatin Calcium (Lipitor) 80 mg PO DIN [facility] Last Admin: 08/07/17 17:10 Dose: 80 mg Dabigatran (Pradaxa) 150 mg PO BID [facility] PRN Reason: Protocol Last Admin: 08/08/17 10:05 Dose: 150 mg Furosemide (Lasix) 80 mg PO DAILY [facility] Insulin Human Regular (Humulin R Low) 0 units SC ACHS [facility] PRN Reason: Protocol Last Admin: 08/08/17 13:09 Dose: 1 units Metolazone (Zaroxolyn) 5 mg PO DAILY [facility] Stop: 08/09/17 23:59 Last Admin: 08/08/17 10:07 Dose: 5 mg Multi-Ingredient Cream (Hydrocerin Cream) 0 ea TOP DAILY [facility] Last Admin: 08/08/17 10:03 Dose: Not Given Oxycodone/Acetaminophen (Percocet 10/325 Mg Tab) 1 tab PO Q4H PRN PRN Reason: Pain, severe (8-10) Last Admin: 12/21/17 10:04 Dose: 1 tab Potassium Chloride (K-Dur 20 Meq Er Tab) 20 meq PO BID [facility] Sitagliptin Phosphate (Januvia) 100 mg PO DAILY [facility] Last Admin: 08/08/17 10:03 Dose: 100 mg Spironolactone (Aldactone) 25 mg PO BID [facility] Last Admin: 08/08/17 10:02 Dose: 25 mg - Labs Labs: 08/02/17 06:00 08/08/17 06:00 PT 14.5 SECONDS (9.4-12.5) H 07/31/17 13:15 INR 1.31 (0.93-1.08) H 07/31/17 13:15 APTT 38.5 Seconds (25.1-36.5) H 07/31/17 13:15 - Constitutional Appears: Well, Non-toxic, No Acute Distress - Extremities Exam Additional comments: VASC: DP and PT pulses nonpalpable however dopplerable . CFT <3 seconds to all digits b/l. Temperature gradient warm to warm. +1 pitting edema noted NEURO: Gross sensation diminished bilaterally. DERM: Weeping noted to medial aspect of right lower leg- improving; absent full thickness ulcerations; absent cellulitis, malodor, fluctuance, abscess. No open wounds present to LLE. ORTHO: No pain on palpation noted to bilateral LE. - Neurological Exam Neurological Exam: Alert, Awake, Oriented x3 - Psychiatric Exam Psychiatric exam: Normal Affect, Normal Mood Assessment and Plan - Assessment and Plan (Free Text) Assessment: 57 year old male with lymphedema bilateral LE and chronic stasis ulcerations to L lower extremity, stable- improving Plan: Patient S&E at bedside Plan discussed with attending, Dr. Meadows Afebrile, absent leukocytosis Lower extremities cleansed with saline, Hycrocerin cream applied to b/l lower extremities, avoided medial aspect of right ankle Maxosorb and ABD applied to right ulceration. Unna boot applied and wrapped with kerlix and coban Left LE compression applied consisting of webril and compression coban Stockinette applied to the both LE Continue LE evaluation Continue w/ physical therapy Pain mgmt per medicine Stable per podiatry Pt to follow up with Dr. Meadows in the wound care center after discharge
--- NOTE | 2017-08-08 15:44 | CP.PCM.PN ---
Subjective - Date & Time of Evaluation Date of Evaluation: 08/08/17 Time of Evaluation: 14:30 - Subjective Subjective: no acute distress, denies chest pain, no shortness of breath Objective - Vital Signs/Intake and Output Vital Signs (last 24 hours): Temp Pulse Resp BP Pulse Ox 98.1 F 101 H 20 123/92 H 98 08/08/17 08:39 08/08/17 10:05 08/08/17 08:39 08/08/17 10:05 08/08/17 08:39 Intake and Output: 08/08/17 08/08/17 06:59 18:59 Intake Total 860 720 Output Total 1125 950 Balance -265 -230 - Medications Medications: Current Medications Alprazolam (Xanax) 1 mg PO BID ON LICENSE OF [facility] PRN Reason: Protocol Last Admin: 08/08/17 10:06 Dose: 1 mg Atenolol (Tenormin) 25 mg PO BID ON LICENSE OF [facility] Last Admin: 08/08/17 10:05 Dose: 25 mg Atorvastatin Calcium (Lipitor) 80 mg PO DIN ON LICENSE OF [facility] Last Admin: 08/07/17 17:10 Dose: 80 mg Dabigatran (Pradaxa) 150 mg PO BID ON LICENSE OF [facility] PRN Reason: Protocol Last Admin: 08/08/17 10:05 Dose: 150 mg Furosemide (Lasix) 80 mg PO DAILY ON LICENSE OF [facility] Insulin Human Regular (Humulin R Low) 0 units SC ACHS ON LICENSE OF [facility] PRN Reason: Protocol Last Admin: 08/08/17 13:09 Dose: 1 units Metolazone (Zaroxolyn) 5 mg PO DAILY ON LICENSE OF [facility] Stop: 08/09/17 23:59 Last Admin: 08/08/17 10:07 Dose: 5 mg Multi-Ingredient Cream (Hydrocerin Cream) 0 ea TOP DAILY ON LICENSE OF [facility] Last Admin: 08/08/17 10:03 Dose: Not Given Oxycodone/Acetaminophen (Percocet 10/325 Mg Tab) 1 tab PO Q4H PRN PRN Reason: Pain, severe (8-10) Last Admin: 08/08/17 15:32 Dose: 1 tab Potassium Chloride (K-Dur 20 Meq Er Tab) 20 meq PO BID ON LICENSE OF [facility] Sitagliptin Phosphate (Januvia) 100 mg PO DAILY ON LICENSE OF [facility] Last Admin: 08/08/17 10:03 Dose: 100 mg Spironolactone (Aldactone) 25 mg PO BID ON LICENSE OF [facility] Last Admin: 08/08/17 10:02 Dose: 25 mg - Labs Labs: 08/02/17 06:00 08/08/17 06:00 PT 14.5 SECONDS (9.4-12.5) H 07/31/17 13:15 INR 1.31 (0.93-1.08) H 07/31/17 13:15 APTT 38.5 Seconds (25.1-36.5) H 07/31/17 13:15 - Respiratory Exam Respiratory Exam: Clear to Ausculation Bilateral, NORMAL BREATHING PATTERN - Cardiovascular Exam Cardiovascular Exam: REGULAR RHYTHM - GI/Abdominal Exam GI & Abdominal Exam: Soft, Normal Bowel Sounds - Extremities Exam Extremities Exam: Pedal Edema - Neurological Exam Neurological Exam: Alert, Awake - Skin Skin Exam: Dry, Warm Assessment and Plan (1) Paroxysmal A-fib Status: Chronic (2) CHF (congestive heart failure) Status: Acute (3) Cellulitis Status: Acute (4) COPD (chronic obstructive pulmonary disease) Status: Chronic (5) Obstructive sleep apnea Status: Chronic (6) Hypokalemia Status: Acute - Assessment and Plan (Free Text) Plan: monitor lytes, DC IV Abx, DC IV Lasix to PO, potassium supplementation ordered
--- NOTE | 2017-08-08 23:10 | PN ---
DATE: 08/08/2017 LOCATION: The patient is in room 361, bed 2. REASON FOR CONSULTATION AND FOLLOWP: Shortness of breath, chronic atrial fibrillation, morbid obesity, leg edema. SUBJECTIVE: The patient is sitting on bedside without chest pain, shortness of breath, or palpitation. His swelling of leg also has decreased. PHYSICAL EXAMINATION: VITAL SIGNS: Blood pressure 130/78, respirations 20, pulse 65, temperature 97. HEENT: Head is normocephalic. Eyes: Pupils normal, conjunctivae normal. NECK: JVP low. Carotids equal. THORAX: AP diameter normal. LUNGS: Clear. CARDIOVASCULAR: S1, S2. ABDOMEN: Mildly protuberant. No organomegaly. EXTREMITIES: The patient has chronic venous stasis changes. LABORATORIES: WBC 9.2, hemoglobin 12.7, hematocrit 38.5, platelets 258. Sodium 135, potassium 3.0, BUN 34, creatinine 1.3, sugar 92. Calcium, phosphorus, magnesium are normal. Total protein and albumin normal. DIAGNOSES: Grossly fluid overloaded, chronic leg edema, and chronic atrial fibrillation, morbid obesity, chronic obstructive pulmonary disease, nonobstructive coronary artery disease, status post cardiac catheterization, 07/12/2013. Last echocardiogram showed ejection fraction 55%. Last multigated acquisition scan showed ejection fraction 64%. PLAN: Continue Pradaxa for the atrial fibrillation. Supplement potassium. Follow up electrolytes, BUN. Continue Lasix and Zaroxolyn. We advised the patient to lose weight. We will follow. Jalen Rogers MD
[2017-08-09] MEDS: Oxycodone/Acetaminophen 10/325 mg Tab PO PRN ×3 (01:42→10:31)
[2017-08-09 06:08] LABS: ALKALINE PHOSPHATASE 60 U/L (38-126); ALT/SGPT 41 U/L (7-56); AST/SGOT 51 U/L (17-59); BILIRUBIN,TOTAL 0.9 mg/dL (0.2-1.3); BLOOD UREA NITROGEN 33 mg/dL (7-21); CALCIUM 8.7 mg/dL (8.4-10.5); CARBON DIOXIDE 32 mmol/L (21-33); CHLORIDE 90 mmol/L (98-107); GFR AFRICAN-AMERICAN > 60; GLUCOSE,RANDOM 112 mg/dL (70-110); POTASSIUM 3.5 mmol/L (3.6-5.0); SODIUM 134 mmol/L (132-148); TOTAL PROTEIN 7.6 g/dL (5.8-8.3)
[2017-08-09 07:28] VITALS: BP 102/80; PULSE 67; TEMP 98.1; O2SAT 95
[2017-08-09] MEDS: Insulin Reg-LOW-Coverage SC SCH (07:50)
[2017-08-09] MEDS: Hydrocerin(120 gm) TOP SCH (10:25)
[2017-08-09] MEDS: Potassium Chloride 20 mEq ER Tab PO SCH (10:26)
[2017-08-09] MEDS: metOLazone 5 MG TAB PO SCH (10:27)
--- NOTE | 2017-08-09 15:56 | CP.PCM.PN ---
<Kwabena Landaverde - Last Filed: 08/09/17 15:52> Subjective - Date & Time of Evaluation Date of Evaluation: 08/09/17 Time of Evaluation: 15:52 - Subjective Subjective: Podiatry Progress Note for Dr. Kaur 57 y.o male seen at bedside with attending Dr. Kaur in the AM for bilaterally stasis ulcerations. Patient is seen sitting comfortably, in NAD, and AA0x3. Patient denies acute overnight events. Bilateral dressing is clean, dry, intact. Patient denies n/v/cp/chills/f. No other pedal complaints. Patient reports that he will be discharge today. He reports that he will followup in wound care as instructed. Objective - Vital Signs/Intake and Output Vital Signs (last 24 hours): Temp Pulse Resp BP Pulse Ox 98.1 F 67 20 102/80 95 08/09/17 07:28 08/09/17 10:27 08/09/17 07:28 08/09/17 10:27 08/09/17 07:28 Intake and Output: 08/09/17 08/09/17 06:59 18:59 Intake Total 920 Output Total 850 Balance 70 - Labs Labs: 08/02/17 06:00 08/09/17 05:30 PT 14.5 SECONDS (9.4-12.5) H 07/31/17 13:15 INR 1.31 (0.93-1.08) H 07/31/17 13:15 APTT 38.5 Seconds (25.1-36.5) H 07/31/17 13:15 - Constitutional Appears: Well, Non-toxic, No Acute Distress - Extremities Exam Additional comments: Right LE dressing c/d/i. Left LE examination: VASC: DP and PT pulses nonpalpable (however dopplerable) CFT <3 seconds to all digits b/l. Temperature gradient warm to warm. +1 pitting edema noted NEURO: Gross sensation diminished bilaterally. DERM: No open ulcerations to the L LE. Venous stasis changes to skin noted ORTHO: No pain on palpation noted to bilateral LE - Neurological Exam Neurological Exam: Alert, Awake, Oriented x3 - Psychiatric Exam Psychiatric exam: Normal Affect, Normal Mood Assessment and Plan - Assessment and Plan (Free Text) Assessment: 7 year old male with lymphedema bilateral LE and chronic stasis ulcerations to R lower extremity, stable- improving Plan: Patient S&E at bedside Plan discussed with attending, Dr. Kaur Afebrile, absent leukocytosis Kept dressing c/d/i to R LE Left LE cleansed with saline, applied hycrocerin, compression applied consisting of kerlix and coban [place]inette applied to the both LE Continue LE evaluation Continue w/ physical therapy Pain mgmt per medicine Stable per podiatry Pt to follow up with Dr. Meadows in the wound care center after discharge <Andres Kaur - Last Filed: 08/10/17 07:24> Objective - Vital Signs/Intake and Output Vital Signs (last 24 hours): Temp Pulse Resp BP Pulse Ox 98.1 F 67 20 102/80 95 08/09/17 07:28 08/09/17 10:27 08/09/17 07:28 08/09/17 10:27 08/09/17 07:28 - Labs Labs: 08/02/17 06:00 08/09/17 05:30 PT 14.5 SECONDS (9.4-12.5) H 07/31/17 13:15 INR 1.31 (0.93-1.08) H 07/31/17 13:15 APTT 38.5 Seconds (25.1-36.5) H 07/31/17 13:15 Attending/Attestation - Attestation I have personally seen and examined this patient.: Yes I have fully participated in the care of the patient.: Yes I have reviewed all pertinent clinical information, including history, physical exam and plan: Yes
--- NOTE | 2017-08-09 19:33 | PN ---
DATE: 08/09/2017 REASON FOR CONSULTATION AND FOLLOW UP: Shortness of breath, chronic atrial fibrillation, morbid obesity, leg edema. SUBJECTIVE: The patient denies any chest pain or shortness of breath. Lying flat on the bed. OBJECTIVE: GENERAL: Not in apparent distress, lying flat on the bed. VITAL SIGNS: As follows; temperature afebrile, heart rate 69, blood pressure 102/80. HEENT: PERRLA. Extraocular muscles are intact. NECK: Supple. No carotid bruit or thyromegaly. CHEST: Clear to auscultation. HEART: S1 and S2 regular. ABDOMEN: Soft. EXTREMITIES: Clubbing and cyanosis negative. LABORATORY DATA: Blood workup as follows: WBC 9.8, hemoglobin 12.7, hematocrit 38.5, platelet count 258. Chemistry shows sodium 135, potassium 3.5, chloride 90, carbon dioxide 32, anion gap of 15, BUN 33, creatinine 1.3. IMPRESSION: Grossly fluid overload chronic leg edema, and chronic atrial fibrillation, morbid obesity, chronic obstructive pulmonary disease, nonobstructive coronary artery disease, status post cardiac catheterization, 07/12/2013. Last echocardiogram showed ejection fraction 55%. Last MUGA scan multigated acquisition scan showed ejection fraction 64%. RECOMMENDATIONS: Continue Pradaxa for atrial fibrillation. Supplement potassium as needed. Continue Lasix and Zaroxolyn. Advised the patient to lose weight and also when the patient sits raise leg and put a step . The patient possible discharge home today. Jalen Vargas MD
--- NOTE | 2017-08-10 02:20 | DS ---
HOSPITAL COURSE: The patient is a 57-year-old male admitted to the Emergency Department on 07/31/2017 with increasing shortness of breath and edema. He had elevated BNP levels. Troponin was negative. He was admitted to telemetry for further observation and management. The patient also has chronic venous stasis ulcers and was treated with IV antibiotics and Unasyn 1.5 g q.6 hours for cellulitis of the legs. The patient was seen in consultation by Cardiology, Dr. Rogers/Sam. He received IV Lasix. His hospital course is complicated by hypokalemia for which he received potassium supplementations. At the present time, he is medically stable for discharged to home. There are no complaints of chest pain or shortness of breath, edema of the legs has decreased and potassium today was 3.5. PHYSICAL EXAMINATION: VITAL SIGNS: Blood pressure 102/80, temperature 98.1, pulse 67, and respiratory rate 20. LUNGS: Clear. HEART: Regular rate and rhythm. ABDOMEN: Soft, nontender, and obese. Bowel sounds normoactive. EXTREMITIES: Show 3+ brawny edema of the lower extremities with chronic venous stasis ulcers of the legs. Dressings are intact with no drainage. NEUROLOGIC: The patient is awake and oriented x3 without focal, sensory, or motor deficit. SKIN: Warm and dry. LABORATORY DATA: Sodium 134, potassium 3.5, chloride 90, CO2 of 32, BUN 33, creatinine 1.3, and glucose 112. IMPRESSION: 1. Congestive heart failure. 2. Chronic venous stasis ulcers with cellulitis of the legs. 3. Hypertension and hypertensive cardiovascular disease. 4. Paroxysmal atrial fibrillation. 5. Chronic obstructive pulmonary disease. 6. Obstructive sleep apnea. 7. Nonobstructive coronary artery disease. 8. Type 2 diabetes mellitus with morbid obesity and diabetic neuropathy. 9. Hypokalemia, possibly secondary to diuretics. PLAN: The patient will be discharged to home on the following medications; Aldactone 25 mg twice daily, Lasix 80 mg daily, Pradaxa 150 mg twice daily, Lipitor 80 mg daily, Cardizem CD 240 mg daily, Zaroxolyn 5 mg daily, Protonix 40 mg daily, potassium chloride 20 mEq 3 times daily, Xanax 1 mg twice daily, Ecotrin 81 mg daily, and Percocet 10/325 one tablet q.4 hours. The patient will be maintained on a heart-healthy diet. Activities; ad libitum. He will be seen in the office within the next 1 to 2 weeks for repeat potassium level. He was advised to be complaint with his potassium supplement and the risks of hypokalemia. MELCHOR Sousa MD
== END 2017-08-09 14:18 | disposition home or self-care (01) ==
LOC: ED 12:37 → ERH 14:19 → INTOOBSV 14:19 → 2RSO 15:19 → 3RNO 08-05 21:48
PROVIDERS: ADMIT Internal Medicine; ATTEND Internal Medicine
DX: I11.0 Hypertensive heart disease with heart failure (principal); I50.43 Acute on chronic combined systolic (congestive) and diastolic (congestive) heart failure; I87.2 Venous insufficiency (chronic) (peripheral); L03.116 Cellulitis of left lower limb; L03.115 Cellulitis of right lower limb; L97.919 Non-pressure chronic ulcer of unspecified part of right lower leg with unspecified severity; L97.929 Non-pressure chronic ulcer of unspecified part of left lower leg with unspecified severity; E11.622 Type 2 diabetes mellitus with other skin ulcer; E66.01 Morbid (severe) obesity due to excess calories; Z68.42 Body mass index [BMI] 45.0-49.9, adult; I48.0 Paroxysmal atrial fibrillation; E11.40 Type 2 diabetes mellitus with diabetic neuropathy, unspecified; I25.10 Atherosclerotic heart disease of native coronary artery without angina pectoris; J44.9 Chronic obstructive pulmonary disease, unspecified; E87.6 Hypokalemia; E87.1 Hypo-osmolality and hyponatremia; I48.2 Chronic atrial fibrillation; E78.5 Hyperlipidemia, unspecified; I27.20 Pulmonary hypertension, unspecified; G47.33 Obstructive sleep apnea (adult) (pediatric); I36.1 Nonrheumatic tricuspid (valve) insufficiency; K21.9 Gastro-esophageal reflux disease without esophagitis; Z91.14 Patient's other noncompliance with medication regimen; Z79.01 Long term (current) use of anticoagulants; Z95.5 Presence of coronary angioplasty implant and graft; Z90.49 Acquired absence of other specified parts of digestive tract; Z87.891 Personal history of nicotine dependence
CPT/HCPCS: 36415; 71010; 80048; 80053; 80061; 81003; 82550; 82948; 83036; 83615; 83735; 83880; 84100; 84132; 84443; 84484; 85025; 85610; 85730; 87040; 93005; 93923; 93970; 96361; 96366; 96367; 96375; 96376; 97116; 97162; 99285; G0378; G8978; G8979; G8980; J0295; J1940; J3480

== ENCOUNTER 2017-08-23 10:26 | Emergency (ER) | payer OTHER ==
[2017-08-23 10:28] VITALS: PULSE 95
[2017-08-23 10:38] VITALS: BMI 45.3
[2017-08-23 10:52] VITALS: TEMP 100.2
--- NOTE | 2017-08-23 11:02 | ED PDOC ---
Arrival/HPI - General Chief Complaint: Chest Pain Time Seen by Provider: 08/23/17 10:38 Historian: Patient - History of Present Illness Narrative History of Present Illness (Text): 08/23/17 11:02 57 year old male, whose past medical history includes diabetes, diabetic neuropathy, paroxysmal atrial fibrillation, chronic venous stasis, and obstructive sleep apnea, presents to the emergency department complaining of chest pain that began yesterday. Patient describes the pain as a sharp sensation. Patient reports he was [place] care [place] [facility] [place] having felt the chest pain, was sent down to the ED. Patient reports dyspnea on exertion which he states he has at all times and is no different. He denies any fever, chills, nausea, vomiting, diarrhea, urinary symptoms, back pain, neck pain, headache, dizziness, or any other complaints. PMD: Dr. Leiva Past Medical History - Provider Review Nursing Documentation Reviewed: Yes - Infectious Disease Hx of Infectious Diseases: None - Tetanus Immunization Tetanus Immunization: Unknown - Cardiac Hx Cardiac Disorders: Yes Hx Congestive Heart Failure: Yes Hx Hypertension: Yes - Pulmonary Hx Respiratory Disorders: Yes Hx Sleep Apnea: Yes - Neurological Hx Neurological Disorder: Yes Other/Comment: tremors - HEENT Hx HEENT Disorder: Yes Other/Comment: glasses - Renal Hx Renal Failure: Yes (ARF 11/2014) - Endocrine/Metabolic Hx Diabetes Mellitus Type 2: Yes - Hematological/Oncological Hx Blood Disorders: No - Integumentary Hx Dermatological Disorder: No Other/Comment: cellulitis on sudhir lower ext. Chronic venous insufficiency ( previous triage) - Musculoskeletal/Rheumatological Hx Falls: No - Gastrointestinal Hx Gastroesophageal Reflux: Yes - Genitourinary/Gynecological Hx Genitourinary Disorders: No - Psychiatric Hx Psychophysiologic Disorder: Yes Hx Anxiety: Yes Hx Substance Use: No - Surgical History Hx Appendectomy: Yes Hx Cardiac Catheterization: Yes (04/2014) Hx Coronary Stent: Yes - Anesthesia Hx Anesthesia: Yes Hx Anesthesia Reactions: No Hx Malignant Hyperthermia: No - Suicidal Assessment Feels Threatened In Home Enviroment: No Family/Social History - Physician Review Nursing Documentation Reviewed: Yes Family/Social History: No Known Family HX Smoking Status: Former Smoker Hx Alcohol Use: Yes (6 pack beer /daily) Hx Substance Use: No Hx Substance Use Treatment: No Allergies/Home Meds Allergies/Adverse Reactions: Allergies No Known Allergies Allergy (Verified 07/31/17 17:40) Home Medications: Home Meds Medication Instructions Recorded Confirmed Albuterol HFA [Ventolin HFA 90 1 puff IH BID PRN 09/17/16 08/23/17 mcg/actuation (8 g)] Furosemide [Lasix] 1 tab PO BID 09/17/16 08/23/17 Oxycodone HCl/Acetaminophen 1 tab PO Q4H PRN 09/17/16 08/23/17 [Percocet 10-325 mg Tablet] metOLazone [Zaroxolyn] 1 tab PO 2XW 09/17/16 08/23/17 Review of Systems - Physician Review All systems were reviewed & negative as marked: Yes - Review of Systems Constitutional: absent: Fevers Gastrointestinal: absent: Diarrhea, Nausea, Vomiting Physical Exam - Physical Exam Narrative Physical Exam (Text): Constitutional: No acute distress. Head: Normocephalic. Atraumatic. Eyes: PERRL. ENT: Moist mucous membranes. Neck: Supple. Cardiovascular: Borderline Tachycardia. Irregular Rhythm Chest: No tenderness. Respiratory: Clear to auscultation bilaterally. GI: Soft. Nontender. Nondistended. Back: No CVA tenderness. Musculoskeletal: Bilateral lower extremities bandages. Skin: No rash. Neurologic: Alert, no focal deficit. Vital Signs Temp Pulse Resp BP Pulse Ox 08/23/17 12:16 113 H 19 131/71 94 L 08/23/17 10:28 100.2 F H 19 L 18 147/81 97 Medical Decision Making ED Course and Treatment: 08/23/17 11:02 Plan: -- Labs -- Chest X-ray -- EKG -- Reassess and disposition Prior Visits: Notes and results from previous visits were reviewed. Patient was last seen in the emergency department on 07/31/17 presents complaining of bilateral leg swelling and dyspnea on exertion. Patient was admitted. Progress Notes: Triage heart rate incorrect. EKG shows Sinus tachycardia at [address] elevation. Interpreted by me. PROCEDURE: Chest X-ray Dictator : Roc Bean MD Report Date : 08/23/2017 11:27:20 IMPRESSION: No active disease. 08/23/17 12:[address] Matthew Leiva who states patient underwent cath and had clean coronaries and advises consultation with patient's telecom coordinator but suspects admission is not indicated. 08/23/17 12:[address] Vargas who states patient had catheterization recently which showed clean coronaries and recommends out patient follow up. I have discussed the results and plan with the patient, who expresses understanding. Patient in agreement with plan to be discharged home. Patient is stable for discharge. Patient was instructed for outpatient follow up, or return if symptoms worsen or new concerning symptoms arise. - Lab Interpretations Lab Results: 08/23/17 11:00 08/23/17 11:00 Lab Results 08/23/17 11:00: PT 18.4 H, INR 1.59 H, APTT 49.9 H 08/23/17 11:00: WBC 16.3 H D, RBC 3.89, Hgb 12.2 L, Hct 35.9 L, MCV 92.3 D, MCH 31.4, MCHC 34.0, RDW 13.7, Plt Count 308, MPV 9.0, Gran % 90.2 H, Lymph % ( Auto) 3.7 L, [place] % (Auto) 5.5, Eos % (Auto) 0.4 L, Baso % (Auto) 0.2, Gran # 14.72 H, Lymph # 0.6 L, [place] # 0.9 H, Eos # 0.1, Baso # 0.04, Neutrophils % ( Manual) 87 H, Lymphocytes % (Manual) 4 L, Monocytes % (Manual) 5, Eosinophils % (Manual) 4 H, Platelet Evaluation Normal, Large Platelets Present 08/23/17 11:00: Sodium 130 L, Potassium 3.1 L, Chloride 87 L, Carbon Dioxide 32 , Anion Gap 15, BUN 25 H, Creatinine 1.2, Est GFR ( Amer) > 60, Est GFR ( Non-Af Amer) > 60, Random Glucose 133 H, Calcium 9.1, Total Bilirubin 0.8, AST 34, ALT 35, Alkaline Phosphatase 58, Total Creatine Kinase 67, Troponin I < 0.01 , NT-Pro-B Natriuret Pep 2100 H, Total Protein 7.7, Albumin 4.1, Globulin 3.5, Albumin/Globulin Ratio 1.2 I have reviewed the lab results: Yes - RAD Interpretation Radiology Orders: 08/23/17 10:48 CHEST PORTABLE [RAD] Stat - EKG Interpretation Interpreted by ED Physician: Yes Type: 12 lead EKG - Medication Orders Current Medication Orders: Discontinued Medications Aspirin (Aspirin) 325 mg PO STAT STA Stop: 08/23/17 10:49 Last Admin: 08/23/17 11:14 Dose: 325 mg - Scribe Statement The provider has reviewed the documentation as recorded by the Radha Deshpande Provider Scribe Attestation: All medical record entries made by the Scribe were at my direction and personally dictated by me. I have reviewed the chart and agree that the record accurately reflects my personal performance of the history, physical exam, medical decision making, and the department course for this patient. I have also personally directed, reviewed, and agree with the discharge instructions and disposition. Disposition/Present on Arrival - Present on Arrival Any Indicators Present on Arrival: No History of DVT/PE: No History of Uncontrolled Diabetes: No Urinary Catheter: No History of Decub. Ulcer: No History Surgical Site Infection Following: None - Disposition Have Diagnosis and Disposition been Completed?: Yes Diagnosis: Chest pain Disposition: HOME/ ROUTINE Disposition Time: 12:16 Patient Plan: Discharge Patient Problems: Current Active Problems Problem Status Onset Chest pain Acute Condition: STABLE Discharge Instructions (ExitCare): Chest Pain (ED) Referrals: Matthew Leiva JD, MD [Primary Care Provider] - Follow up with primary Forms: [employer] (Yoruba)
[2017-08-23 11:24] LABS: BASO # 0.04 K/mm3 (0.0-2.0); BASO % 0.2 % (0.0-3.0); EOS # 0.1 (0.0-0.7); EOS % 0.4 % (1.5-5.0); GRAN # 14.72 (1.4-6.5); GRAN % 90.2 % (50.0-68.0); HEMOGLOBIN 12.2 g/dL (14.0-18.0); LYMPH # 0.6 (1.2-3.4); LYMPH % 3.7 % (22.0-35.0); MEAN CELL VOLUME 92.3 fl (80.0-105.0); MEAN CORPUSCULAR HEMOGLOBIN 31.4 pg (25.0-35.0); MONO # 0.9 (0.1-0.6); MONO % 5.5 % (1.0-6.0); PLATELET COUNT 308 10^3/uL (120.0-450.0); RBC 3.89 10^6/uL (3.5-6.1); RED CELL DISTRIBUTION WIDTH 13.7 % (11.5-14.5); WHITE BLOOD COUNT 16.3 10^3/ul (4.5-11.0)
--- NOTE | 2017-08-23 11:29 | RAD ---
HISTORY: cp COMPARISON: 07/31/2017 FINDINGS: LUNGS: No active pulmonary disease. PLEURA: No significant pleural effusion identified, no pneumothorax apparent. CARDIOVASCULAR: Mild cardiomegaly OSSEOUS STRUCTURES: No significant abnormalities. VISUALIZED UPPER ABDOMEN: Normal. OTHER FINDINGS: None. IMPRESSION: No active disease.
[2017-08-23 11:35] LABS: INR 1.59 (0.93-1.08); PARTIAL THROMBOPLASTIN TIME 49.9 Seconds (25.1-36.5); PROTHROMBIN TIME 18.4 SECONDS (9.4-12.5)
[2017-08-23 11:43] LABS: ALB/GLOB RATIO 1.2 (1.1-1.8); ALBUMIN 4.1 g/dL (3.0-4.8); ALT/SGPT 35 U/L (7-56); AST/SGOT 34 U/L (17-59); BLOOD UREA NITROGEN 25 mg/dL (7-21); CALCIUM 9.1 mg/dL (8.4-10.5); GFR AFRICAN-AMERICAN > 60; GFR NON-AFRICAN AMERICAN > 60
[2017-08-23 11:47] LABS: B-TYPE NATRIURETIC PEPTIDE 2100 pg/mL (0-450); TROPONIN I < 0.01 ng/mL
[2017-08-23 12:02] LABS: EOSINOPHIL 4 % (0.0-3.0); LYMPHOCYTE 4 % (22.0-35.0); MONOCYTE 5 % (1.0-6.0); NEUTROPHIL 87 % (50.0-70.0)
[2017-08-23 12:05] LABS: PLATELET ESTIMATE NORMAL (NORMAL)
[2017-08-23 12:06] LABS: LARGE PLATELETS PRESENT
[2017-08-23 12:17] VITALS: BP 131/71; PULSE 113; RESP 19; O2SAT 94
--- NOTE | 2017-08-23 15:36 | CARD ---
APPROVED REPORT EKG Measurement Heart [id number] <Conclusion> Atrial fibrillation with rapid ventricular response with premature ventricular or aberrantly conducted complexes Right axis deviation Low voltage QRS Abnormal ECG
== END 2017-08-23 12:45 | disposition home or self-care (01) ==
LOC: ED 10:26
DX: R07.9 Chest pain, unspecified (principal); I10 Essential (primary) hypertension; Z87.891 Personal history of nicotine dependence; E11.9 Type 2 diabetes mellitus without complications; I48.0 Paroxysmal atrial fibrillation

== ENCOUNTER 2018-04-12 12:25 | Inpatient (IN) | payer OTHER ==
[2018-04-12 12:26] VITALS: PULSE 95
--- NOTE | 2018-04-12 13:19 | RAD ---
Date of service: 04/12/2018 HISTORY: Shortness of breath COMPARISON: 08/23/2017. FINDINGS: LUNGS: The lungs are well inflated and clear. PLEURA: No significant pleural effusion identified, no pneumothorax apparent. CARDIOVASCULAR: There is persistent moderate cardiomegaly. OSSEOUS STRUCTURES: No significant abnormalities. VISUALIZED UPPER ABDOMEN: Normal. OTHER FINDINGS: None. IMPRESSION: No active pulmonary disease.
[2018-04-12 13:24] LABS: BASO # 0.07 K/mm3 (0.0-2.0); BASO % 0.7 % (0.0-3.0); EOS # 0.2 (0.0-0.7); EOS % 1.7 % (1.5-5.0); GRAN # 7.27 (1.4-6.5); GRAN % 77.9 % (50.0-68.0); HEMOGLOBIN 13.6 g/dL (14.0-18.0); LYMPH # 1.2 (1.2-3.4); LYMPH % 12.3 % (22.0-35.0); MEAN CELL VOLUME 88.9 fl (80.0-105.0); MEAN CORPUSCULAR HEMOGLOBIN 31.4 pg (25.0-35.0); MEAN CORPUSCULAR HGB CONC 35.3 g/dl (31.0-37.0); MEAN PLATELET VOLUME 10.3 fl (7.0-11.0); MONO # 0.7 (0.1-0.6); MONO % 7.4 % (1.0-6.0); RBC 4.33 10^6/uL (3.5-6.1); WHITE BLOOD COUNT 9.3 10^3/ul (4.5-11.0)
[2018-04-12 13:25] LABS: URINE BILIRUBIN NEGATIVE (NEGATIVE); URINE BLOOD TRACE-INTACT (NEGATIVE); URINE GLUCOSE (UA) 500 mg/dL (NEGATIVE); URINE LEUKOCYTE ESTERASE NEGATIVE Leu/uL (NEGATIVE); URINE PROTEIN NEGATIVE mg/dL (<30 mg/dL); URINE UROBILINOGEN 0.2 E.U./dL (<1 E.U./dL)
[2018-04-12 13:31] LABS: INR 1.75; PARTIAL THROMBOPLASTIN TIME 65.7 Seconds (25.1-36.5); PROTHROMBIN TIME 20.4 SECONDS (9.4-12.5)
--- NOTE | 2018-04-12 13:32 | ED PDOC ---
Arrival/HPI - General Chief Complaint: Shortness Of Breath Time Seen by Provider: 04/12/18 12:28 Historian: Patient - History of Present Illness Narrative History of Present Illness (Text): 04/12/18 13:29 58 Year old male, whose past medical history includes diabetes, diabetic neuropathy, paroxysmal atrial fibrillation, CAD, chronic venous stasis, and obstructive sleep apnea, who presents to the emergency department complaining of shortness of breath since yesterday. Patient also reports associated chest pain. Patient denies any fever, chills, abdominal pain, nausea, vomiting, diarrhea, urinary symptoms, back pain, neck pain, headache, dizziness, or any other complaints. PMD: Dr. Lien Leiva Time/Duration: 24 hours Symptom Onset: Gradual Symptom Course: Unchanged Past Medical History - Provider Review Nursing Documentation Reviewed: Yes - Infectious Disease Hx of Infectious Diseases: None - Tetanus Immunization Tetanus Immunization: Unknown - Cardiac Hx Cardiac Disorders: Yes Hx Congestive Heart Failure: Yes Hx Hypertension: Yes - Pulmonary Hx Respiratory Disorders: Yes Hx Sleep Apnea: Yes - Neurological Hx Neurological Disorder: Yes Other/Comment: tremors - HEENT Hx HEENT Disorder: Yes Other/Comment: glasses - Renal Hx Renal Failure: Yes (ARF 11/2014) - Endocrine/Metabolic Hx Diabetes Mellitus Type 2: Yes - Hematological/Oncological Hx Blood Disorders: No - Integumentary Hx Dermatological Disorder: No Other/Comment: cellulitis on sudhir lower ext. Chronic venous insufficiency ( previous triage) - Musculoskeletal/Rheumatological Hx Falls: No - Gastrointestinal Hx Gastroesophageal Reflux: Yes - Genitourinary/Gynecological Hx Genitourinary Disorders: No - Psychiatric Hx Psychophysiologic Disorder: Yes Hx Anxiety: Yes Hx Substance Use: No - Surgical History Hx Appendectomy: Yes Hx Cardiac Catheterization: Yes (04/2014) Hx Coronary Stent: Yes - Anesthesia Hx Anesthesia: Yes Hx Anesthesia Reactions: No Hx Malignant Hyperthermia: No - Suicidal Assessment Feels Threatened In Home Enviroment: No Family/Social History - Physician Review Nursing Documentation Reviewed: Yes Family/Social History: No Known Family HX Smoking Status: Former Smoker Hx Alcohol Use: Yes (6 pack beer /daily) Hx Substance Use: No Hx Substance Use Treatment: No Allergies/Home Meds Allergies/Adverse Reactions: Allergies meropenem [From Merrem] Adverse Reaction (Verified 04/12/18 18:25) PAIN Home Medications: Home Meds Medication Instructions Recorded Confirmed Albuterol HFA [Ventolin HFA 90 1 puff IH BID PRN 09/17/16 04/12/18 mcg/actuation (8 g)] Furosemide [Lasix] 1 tab PO BID 09/17/16 04/12/18 Oxycodone HCl/Acetaminophen 1 tab PO Q4H PRN 09/17/16 04/12/18 [Percocet 10-325 mg Tablet] metOLazone [Zaroxolyn] 1 tab PO 2XW 09/17/16 04/12/18 Review of Systems - Physician Review All systems were reviewed & negative as marked: Yes - Review of Systems Constitutional: Normal. absent: Fevers, Night Sweats Eyes: Normal ENT: Normal Respiratory: Normal. absent: SOB, Cough Cardiovascular: Normal. absent: Chest Pain Gastrointestinal: Normal. absent: Abdominal Pain, Diarrhea, Nausea, Vomiting Genitourinary Male: Normal. absent: Urinary Output Changes Musculoskeletal: Normal. absent: Back Pain, Neck Pain Skin: Normal Neurological: Normal. absent: Headache, Dizziness Endocrine: Normal Hemo/Lymphatic: Normal Psychiatric: Normal Physical Exam Vital Signs Reviewed: Yes Vital Signs Temp Pulse Resp BP Pulse Ox 04/12/18 15:15 98.6 F 89 18 135/88 99 04/12/18 14:37 139/88 04/12/18 14:26 98.6 F 88 18 139/88 98 04/12/18 12:45 22 99 04/12/18 12:41 98.3 F 102 H 18 153/69 H 98 Temperature: Afebrile Blood Pressure: Normal Pulse: Regular Respiratory Rate: Normal Appearance: Positive for: Well-Appearing, Non-Toxic, Comfortable Pain Distress: None Mental Status: Positive for: Alert and Oriented X 3 - Systems Exam Head: Present: Atraumatic, Normocephalic Pupils: Present: PERRL Extroacular Muscles: Present: EOMI Conjunctiva: Present: Normal Mouth: Present: Moist Mucous Membranes Neck: Present: Normal Range of Motion Respiratory/Chest: Present: Clear to Auscultation, Good Air Exchange. No: Respiratory Distress, Accessory Muscle Use Cardiovascular: Present: Regular Rate and Rhythm, Normal S1, S2. No: Murmurs Abdomen: No: Tenderness, Distention, Peritoneal Signs Back: Present: Normal Inspection Upper Extremity: Present: Normal Inspection. No: Cyanosis, Edema Lower Extremity: Present: Swelling (Bilateral leg swelling) Neurological: Present: GCS=15, CN II-XII Intact, Speech Normal Skin: Present: Warm, Dry, Normal Color. No: Rashes Psychiatric: Present: Alert, Oriented x 3, Normal Insight, Normal Concentration Medical Decision Making ED Course and Treatment: 04/12/18 13:31 Impression: 58 year old male presents to the emergency department with shortness of breath since last night. Plan: -- EKG -- Labs -- Urinalysis -- Reassess and disposition Prior Visits: Notes and results from previous visits were reviewed. Progress Notes: 04/12/18 14:00 EKG reviewed, shows: Afib @ 111 bpm 04/13/18 07:17 pt with mild chf, and hyperglycemia. already on pradaxa for afib, doubt pe, no e /o of dka. dr leiva request hospitalist admisison. accepte cathleen hodgson - Lab Interpretations Lab Results: 04/12/18 13:00 04/12/18 13:00 Lab Results 04/12/18 14:00: pCO2 24 L, pO2 169.0 H, HCO3 17.1 L, ABG pH 7.46 H, ABG Total CO2 17.8 L, ABG O2 Saturation 99.8 H, ABG O2 Content 13.5 L, ABG Base Excess - 5.6 L, ABG Hemoglobin 9.6 L, ABG Carboxyhemoglobin 1.9 H, POC ABG HHb (Measured ) 0.2, ABG Methemoglobin 0.8, ABG O2 Capacity 13.5 L, Hgb O2 Saturation 97.0, FiO2 28.0 04/12/18 13:00: Alcohol, Quantitative < 10 04/12/18 13:00: Serum Osmolality 301 H 04/12/18 13:00: Sodium 123 L, Potassium 4.7, Chloride 82 L, Carbon Dioxide 23, Anion Gap 23 H, BUN 48 H, Creatinine 1.8 H, Est GFR ( Amer) 47, Est GFR ( Non-Af Amer) 39, Random Glucose 632 H* D, Calcium 9.8, Magnesium 2.5 H, Total Bilirubin 1.1, AST 32, ALT 30, Alkaline Phosphatase 92, Lactate Dehydrogenase 433, Total Creatine Kinase 119, Troponin I < 0.01, NT-Pro-B Natriuret Pep 890 H , Total Protein 8.2, Albumin 4.4, Globulin 3.8, Albumin/Globulin Ratio 1.1 04/12/18 13:00: Urine Color Light yellow, Urine Appearance Clear, Urine pH 6.0, Ur Specific [place] <= 1.005, Urine Protein Negative, Urine Glucose (UA) 500 H, Urine Ketones Negative, Urine Blood Trace-intact H, Urine Nitrate Negative, Urine Bilirubin Negative, Urine Urobilinogen 0.2, Ur Leukocyte Esterase Negative , Urine RBC Negative, Urine WBC 0 - 2, Ur Epithelial Cells 0 - 2 04/12/18 13:00: PT 20.4 H, INR 1.75, APTT 65.7 H 04/12/18 13:00: WBC 9.3 D, RBC 4.33, Hgb 13.6 L, Hct 38.5 L, MCV 88.9, MCH 31.4 , MCHC 35.3, RDW 14.0, Plt Count 397, MPV 10.3, Gran % 77.9 H, Lymph % (Auto) 12.3 L, Kleberg % (Auto) 7.4 H, Eos % (Auto) 1.7, Baso % (Auto) 0.7, Gran # 7.27 H , Lymph # (Auto) 1.2, Kleberg # (Auto) 0.7 H, Eos # (Auto) 0.2, Baso # (Auto) 0.07 - RAD Interpretation Radiology Orders: 04/12/18 12:47 CHEST PORTABLE [RAD] Stat - Medication Orders Current Medication Orders: Aspirin (Aspirin Chewable) 81 mg PO DAILY [facility] Last Admin: 04/12/18 16:21 Dose: 81 mg Dabigatran (Pradaxa) 150 mg PO Q12 SHAHEED PRN Reason: Protocol Last Admin: 04/12/18 21:32 Dose: 150 mg Dextrose (Dextrose 50% Inj) 0 ml IV STAT PRN; Protocol PRN Reason: Hypoglycemia Protocol Diltiazem HCl (Cardizem Cd) 240 mg PO DAILY [facility] Last Admin: 04/12/18 16:23 Dose: 240 mg MAR Pulse and Blood Pressure Document 04/12/18 16:23 [id number] (Rec: 04/12/18 16:24 [email or web address] [id number]) Pulse Pulse Rate (60-90) 110 Blood Pressure Blood Pressure (100/60-150/90) 119/92 Furosemide (Lasix) 40 mg PO 0600,1800 SHAHEED Last Admin: 04/13/18 05:49 Dose: 40 mg MAR Blood Pressure Document 04/13/18 05:49 CDL (Rec: 04/13/18 05:50 CDL [id number]) Blood Pressure Blood Pressure (100/60-150/90) 127/70 Dextrose (Dextrose 5% In Water 1000 Ml) 1,000 mls @ 0 mls/hr IV .Q0M PRN; Protocol; Per Protocol PRN Reason: Hypoglycemia Protocol Multivitamins/Vitamin C 10 ml/Thiamine HCl 100 mg/ Folic Acid 1 mg/ Sodium Chloride 1,011.2 mls @ 70 mls/hr IV .[id number] ONE Stop: 04/13/18 09:22 Last Admin: 04/12/18 21:46 Dose: 70 mls/hr eMAR Start Stop Document 04/12/18 21:46 CDL (Rec: 04/12/18 21:46 CDL [id number]) Intravenous Solution Start Date 04/12/18 Start Time 20:30 Insulin Detemir (Levemir) 30 unit SC HS SHAHEED Insulin Human Lispro (Humalog) 12 units SC AC SHAHEED Insulin Human Lispro (Humalog Med) 0 units SC ACHS SHAHEED PRN Reason: Protocol Levalbuterol HCl (Xopenex) 1.25 mg IH [id number] PRN PRN Reason: Shortness of Breath Lorazepam (Ativan) 2 mg IVP Q6H PRN; Protocol PRN Reason: Symptoms of alcohol withdrawl Last Admin: 04/12/18 21:57 Dose: 2 mg IVP Administration Document 04/12/18 21:57 CDL (Rec: 04/12/18 21:57 [id number] Charges for Administration # of IVP Administrations 1 Behavioural Document 04/12/18 21:57 CDL (Rec: 04/12/18 21:57 [id number]) Maintenance Maintenance Dose No Nonmedicinal Nonmedicinal Interventions Therapeutic Communication Behavior Behavior for Medication: Anxiety Insomnia Re-Assess: Reassess Psych Meds Document 04/12/18 22:27 CDL (Rec: 04/13/18 02:59 [id number] Reassess Psych Med Effective Metoprolol Tartrate (Lopressor) 50 mg PO Q12 SHAHEED Last Admin: 04/12/18 21:32 Dose: 50 mg MAR Pulse and Blood Pressure Document 04/12/18 21:32 CDL (Rec: 04/12/18 21:36 CDL [id number]) Pulse Pulse Rate (60-90) 90 Blood Pressure Blood Pressure (100/60-150/90) 117/69 Oxycodone/Acetaminophen (Percocet 5/325 Mg Tab) 1 tab PO Q6H PRN PRN Reason: Pain, moderate (4-7) Stop: 04/15/18 15:53 Last Admin: 04/13/18 06:38 Dose: 1 tab MAR Pain Assessment Document 04/13/18 06:38 CDL (Rec: 04/13/18 06:38 [id number] Pain Reassessment Is this a pain reassessment? No Sleep Is patient sleeping during reassessment? No Presence of Pain Presence of Pain Yes Pain Scale Used Pain Scale Used Numeric Location Left, Right or Bilateral Bilateral Pain Location Body Site Leg Description Description Constant Intensity of Pain at present 7 Pain Behavior Restlessness Alleviating Factors/Management Medication Techniques Alleviating Factors Medication Pantoprazole Sodium (Protonix Ec Tab) 40 mg PO ACB SHAHEED Last Admin: 04/12/18 16:24 Dose: 40 mg Potassium Chloride (K-Dur 20 Meq Er Tab) 20 meq PO BRK SHAHEED Last Admin: 04/12/18 17:27 Dose: 20 meq Discontinued Medications Diphenhydramine HCl (Benadryl) 25 mg PO ONCE STA Stop: 04/12/18 18:25 Last Admin: 04/12/18 18:45 Dose: 25 mg Furosemide (Lasix) 40 mg IVP STAT STA Stop: 04/12/18 14:17 Last Admin: 04/12/18 14:37 Dose: 40 mg MAR Blood Pressure Document 04/12/18 14:37 EWO (Rec: 04/12/18 14:37 EW [id number]) Blood Pressure Blood Pressure (100/60-150/90) 139/88 IVP Administration Document 04/12/18 14:37 EWO (Rec: 04/12/18 14:37 EWO [id number]) Charges for Administration # of IVP Administrations 1 Furosemide (Lasix) 1 mg PO BID SHAHEED Furosemide (Lasix) 40 mg PO ONCE ONE Stop: 04/12/18 22:01 Last Admin: 04/12/18 22:30 Dose: 40 mg MAR Blood Pressure Document 04/12/18 22:30 CDL (Rec: 04/12/18 23:09 CDL [id number]) Blood Pressure Blood Pressure (100/60-150/90) 125/69 Sodium Chloride (Sodium Chloride 0.9%) 500 mls @ 999 mls/hr IV .Q31M STA Stop: 04/12/18 14:31 Last Admin: 04/12/18 14:08 Dose: 999 mls/hr eMAR Start Stop Document 04/12/18 14:08 EWO (Rec: 04/12/18 14:08 EWO [id number]) Intravenous Solution Start Date 04/12/18 Start Time 14:08 End Date 04/12/18 End time 14:38 Total Infusion Time 30 Meropenem 500 mg/ Sodium (Chloride) 50 mls @ 100 mls/hr IVPB Q8 SHAHEED PRN Reason: Protocol Stop: 04/12/18 22:29 Last Admin: 04/12/18 17:21 Dose: 100 mls/hr eMAR Start Stop Document 04/12/18 17:21 [id number] (Rec: 04/12/18 17:22 [email or web address] [id number]) Intravenous Solution Start Date 04/12/18 Start Time 17:21 End Date 04/12/18 Insulin Detemir (Levemir) 15 unit SC ONCE ONE Stop: 04/12/18 21:01 Last Admin: 04/12/18 21:46 Dose: 15 units MAR Blood Glucose Document 04/12/18 21:46 CDL (Rec: 04/12/18 21:47 CDL [id number]) Blood Glucose Finger Stick Blood Glucose (70-120) 496 Subcutaneous Administrations Document 04/12/18 21:46 CDL (Rec: 04/12/18 21:47 CDL [id number]) Injection Site MAR Injection Site Right Abdomen Charges for Administration # of Subcutaneous Administrations 1 Insulin Detemir (Levemir) 12 unit SC STAT STA Stop: 04/12/18 23:55 Last Admin: 04/13/18 00:31 Dose: 12 units MAR Blood Glucose Document 04/13/18 00:31 CDL (Rec: 04/13/18 00:32 CDL [id number]) Blood Glucose Finger Stick Blood Glucose (70-120) 474 Subcutaneous Administrations Document 04/13/18 00:31 CDL (Rec: 04/13/18 00:32 CDL [id number]) Injection Site MAR Injection Site Left Arm Charges for Administration # of Subcutaneous Administrations 1 Insulin Human Lispro (Humalog High) 0 units SC ACHS SHAHEED PRN Reason: Protocol Last Admin: 04/12/18 21:36 Dose: 4 units MAR Blood Glucose Document 04/12/18 21:36 CDL (Rec: 04/12/18 21:37 [id number]) Blood Glucose Finger Stick Blood Glucose (70-120) 496 Subcutaneous Administrations Document 04/12/18 21:36 CDL (Rec: 04/12/18 21:37 [id number]) Injection Site MAR Injection Site Left Abdomen Charges for Administration # of Subcutaneous Administrations 1 Insulin Human Regular (Humulin R) 10 units IV STAT STA Stop: 04/12/18 14:00 Last Admin: 04/12/18 14:08 Dose: 10 unit eMAR Start Stop Document 04/12/18 14:08 EWO (Rec: 04/12/18 14:09 EWO [id number]) Intravenous Solution Start Date 04/12/18 Start Time 14:09 End Date 04/12/18 End time 14:10 Total Infusion Time 1 MAR Blood Glucose Document 04/12/18 14:08 EWO (Rec: 04/12/18 14:09 EWO [id number]) Blood Glucose Finger Stick Blood Glucose (70-120) 632 Insulin Human Regular (Humulin R) 12 units IV ONCE ONE Stop: 04/12/18 16:07 Last Admin: 04/12/18 17:26 Dose: 12 units eMAR Start Stop Document 04/12/18 17:26 [email or web address] (Rec: 04/12/18 17:26 [email or web address] [id number]) Intravenous Solution Start Date 04/12/18 Start Time 17:26 MAR Blood Glucose Document 04/12/18 17:26 [email or web address] (Rec: 04/12/18 17:26 [email or web address] [id number]) Blood Glucose Finger Stick Blood Glucose (70-120) 500 Insulin Human Regular (Humulin R) 10 units IV ONCE STA Stop: 04/12/18 18:27 Last Admin: 04/12/18 18:45 Dose: 10 units eMAR Start Stop Document 04/12/18 18:45 [email or web address] (Rec: 04/12/18 18:45 [email or web address] [id number]) Intravenous Solution Start Date 04/12/18 Start Time 18:45 MAR Blood Glucose Document 04/12/18 18:45 [email or web address] (Rec: 04/12/18 18:45 [email or web address] [id number]) Blood Glucose Finger Stick Blood Glucose (70-120) 500 Insulin Human Regular (Humulin R) 10 units SC STAT STA Stop: 04/13/18 03:35 Last Admin: 04/13/18 03:54 Dose: 10 units MAR Blood Glucose Document 04/13/18 03:54 CDL (Rec: 04/13/18 03:54 CDL [id number]) Blood Glucose Finger Stick Blood Glucose (70-120) 439 Subcutaneous Administrations Document 04/13/18 03:54 CDL (Rec: 04/13/18 03:54 CDL [id number]) Injection Site MAR Injection Site Right Abdomen Charges for Administration # of Subcutaneous Administrations 1 Pneumococcal Polyvalent Vaccine (Pneumovax 23 Vaccine) 0.5 ml IM .ONCE ONE Stop: 04/12/18 17:47 - Scribe Statement The provider has reviewed the documentation as recorded by the Scribe Jori Garces All medical record entries made by the Scribe were at my direction and personally dictated by me. I have reviewed the chart and agree that the record accurately reflects my personal performance of the history, physical exam, medical decision making, and the department course for this patient. I have also personally directed, reviewed, and agree with the discharge instructions and disposition. Disposition/Present on Arrival - Present on Arrival Any Indicators Present on Arrival: No History of DVT/PE: No History of Uncontrolled Diabetes: No Urinary Catheter: No History of Decub. Ulcer: No History Surgical Site Infection Following: None - Disposition Have Diagnosis and Disposition been Completed?: Yes Diagnosis: CHF (congestive heart failure), Hyperglycemia Disposition: HOSPITALIZED Disposition Time: 06:00 Condition: STABLE
[2018-04-12 13:33] LABS: URINE COLOR LIGHT YELLOW (YELLOW)
[2018-04-12 13:34] LABS: URINE APPEARANCE CLEAR (CLEAR)
[2018-04-12 13:43] LABS: URINE EPITHELIAL CELLS 0 - 2 /hpf (0-5); URINE RBC NEGATIVE /hpf (0-2); URINE WBC 0 - 2 /hpf (0-6)
[2018-04-12 13:54] LABS: ALB/GLOB RATIO 1.1 (1.1-1.8); ALBUMIN 4.4 g/dL (3.0-4.8); ALT/SGPT 30 U/L (7-56); AST/SGOT 32 U/L (17-59); BLOOD UREA NITROGEN 48 mg/dL (7-21); CALCIUM 9.8 mg/dL (8.4-10.5); GFR NON-AFRICAN AMERICAN 39
[2018-04-12 13:56] LABS: B-TYPE NATRIURETIC PEPTIDE 890 pg/mL (0-450); TROPONIN I < 0.01 ng/mL
[2018-04-12] MEDS ORDERED: Insulin Regular 1 UNITS/0.01 ML ML IV STA ×2 (13:59→18:26)
[2018-04-12] MEDS ORDERED: Sodium Chloride 0.9% 500 ML IV STA (14:01)
[2018-04-12 14:21] LABS: ARTERIAL BLOOD GAS HCO3 17.1 mmol/L (21-28); ARTERIAL BLOOD GAS HEMOGLOBIN 9.6 g/dL (11.7-17.4); ARTERIAL BLOOD GAS O2 CAPACITY 13.5 mL/dl (16-24); ARTERIAL BLOOD GAS O2 CONTENT 13.5 ML/dl (15-23); ARTERIAL BLOOD GAS O2 SAT 99.8 % (95-98); ARTERIAL BLOOD GAS PCO2 24 mm/Hg (35-45); ARTERIAL BLOOD GAS PH 7.46 (7.35-7.45); ARTERIAL BLOOD GAS TCO2 17.8 mmol.L (22-28)
--- NOTE | 2018-04-12 15:54 | CP.PCM.HP ---
<Milagro Matias - Last Filed: 04/12/18 18:26> History of Present Illness - History of Present Illness History of Present Illness: Milagro Matias, PGY2, Medicine H&P for Dr Garcia: CC: confusion 58 year old male with PMH PMH NIDDM, paroxysmal atrial fibrillation (on Pradaxa) , non-obstructive coronary artery disease, chronic venous stasis ulcers, HTN, COPD and JOSELINE, presents for confusion for past few days. Patient is a poor historian. Spoke with daughter and [id number] over the phone. They stated that they had talked to patient last week or so. Patient was complaining of "dizziness and forgetfulness." As per patient, [place] had [place], and "just didnt feel well." So he decided to come to ED. Patient reports chronic SOB, orthopnea (sleeps on 3 pillows). Currently, patient denies cp, diaphoresis, dizziness, nausea, vomiting, headache, fevers, chills, neck pain, blurry vision, cough, wheezing, abdominal pain, urinary symptoms, leg swelling. In ED, patient's EKG showed afib HR 111. BG 638, UA negative for ketones, hemodynamically stable. Given insulin 10 units iV, lasix 40 IV, 500cc NS bolus in ED. 12 point ROS not obtainable as patient is AMS/poor historian. PMD: Dr. Matthew Leiva INS: [employer] PMH: NIDDM, paroxysmal atrial fibrillation (on Pradaxa), non-obstructive coronary artery disease, chronic venous stasis ulcers, HTN, COPD and JOSELINE PSHx: appendectomy Allergies: NKDA Social Hx: Quit smoking 15 years ago, Prior 40 pack year tobacco history stopped 10 years ago. Daily alcohol use with beer mostly. No illicit drugs. Lives alone. Has daughter who lives in [place] nearby. ED: insulin 10 units iV, lasix 40 IV, 500cc NS bolus Present on Admission - Present on Admission Any Indicators Present on Admission: No History of DVT/PE: No History of Uncontrolled Diabetes: No Urinary Catheter: No Decubitus Ulcer Present: No Review of Systems - Review of Systems Systems not reviewed;Unavailable: Altered Mental Status Past Patient History - Infectious Disease Hx of Infectious Diseases: None - Tetanus Immunizations Tetanus Immunization: Unknown - Past Social History Smoking Status: Former Smoker - CARDIAC Hx Cardiac Disorders: Yes Hx Congestive Heart Failure: Yes Hx Hypertension: Yes - PULMONARY Hx Respiratory Disorders: Yes Hx Sleep Apnea: Yes - NEUROLOGICAL Hx Neurological Disorder: Yes Other/Comment: tremors - HEENT Hx HEENT Problems: Yes Other/Comment: glasses - RENAL Hx Renal Failure: Yes (ARF 11/2014) - ENDOCRINE/METABOLIC Hx Diabetes Mellitus Type 2: Yes - HEMATOLOGICAL/ONCOLOGICAL Hx Blood Disorders: No - INTEGUMENTARY Hx Dermatological Problems: No Other/Comment: cellulitis on sudhir lower ext. Chronic venous insufficiency ( previous triage) - MUSCULOSKELETAL/RHEUMATOLOGICAL Hx Falls: No - GASTROINTESTINAL Hx Gastroesophageal Reflux: Yes - GENITOURINARY/GYNECOLOGICAL Hx Genitourinary Disorders: No - PSYCHIATRIC Hx Psychophysiologic Disorder: Yes Hx Anxiety: Yes Hx Substance Use: No - SURGICAL HISTORY Hx Appendectomy: Yes Hx Cardiac Catheterization: Yes (04/2014) Hx Coronary Stent: Yes - ANESTHESIA Hx Anesthesia: Yes Hx Anesthesia Reactions: No Hx Malignant Hyperthermia: No Meds Allergies/Adverse Reactions: Allergies Allergy/AdvReac Type Severity Reaction Status Date / Time meropenem [From Merrem] AdvReac PAIN Verified 04/12/18 18:25 Physical Exam - Constitutional Appears: Non-toxic, Older Than Stated Age - Head Exam Head Exam: ATRAUMATIC, NORMOCEPHALIC - Eye Exam Eye Exam: EOMI, PERRL. absent: Conjunctival injection, Nystagmus, Scleral icterus Pupil Exam: NORMAL ACCOMODATION, PERRL. absent: Irregular, Miosis, Mydriatic, Unequal - ENT Exam ENT Exam: Mucous Membranes Moist - Neck Exam Neck exam: Positive for: Full Rom - Respiratory Exam Respiratory Exam: Decreased Breath Sounds, NORMAL BREATHING PATTERN. absent: Accessory Muscle Use, Chest Wall Tenderness, Rales, Rhonchi, Wheezes, Respiratory Distress - Cardiovascular Exam Cardiovascular Exam: Tachycardia, Irregular Rhythm - GI/Abdominal Exam GI & Abdominal Exam: Normal Bowel Sounds, Soft. absent: Firm, Guarding, Mass, Rebound, Rigid, Tenderness Additional comments: morbidly obese male, rounded abdomen - Extremities Exam Additional comments: mild LE swelling, covered in dressing - Back Exam Back exam: NORMAL INSPECTION - Neurological Exam Neurological exam: Alert, Oriented x3 - Psychiatric Exam Psychiatric exam: Normal Affect, Normal Mood - Skin Skin Exam: Dry, Normal Color, Warm Results - Vital Signs Recent Vital Signs: Last Vital Signs Temp 98.6 F 04/12/18 15:15 Pulse 89 04/12/18 15:15 Resp 18 04/12/18 15:15 BP 135/88 04/12/18 15:15 Pulse Ox 99 04/12/18 15:15 - Labs Result Diagrams: 04/12/18 13:00 04/12/18 13:00 Labs: Laboratory Results - last 24 hr 04/12/18 04/12/18 04/12/18 13:00 13:00 13:00 WBC 9.3 D RBC 4.33 Hgb 13.6 L Hct 38.5 L MCV 88.9 MCH 31.4 MCHC 35.3 RDW 14.0 Plt Count 397 MPV 10.3 Gran % 77.9 H Lymph % (Auto) 12.3 L [place] % (Auto) 7.4 H Eos % (Auto) 1.7 Baso % (Auto) 0.7 Gran # 7.27 H Lymph # (Auto) 1.2 [place] # (Auto) 0.7 H Eos # (Auto) 0.2 Baso # (Auto) 0.07 PT 20.4 H INR 1.75 APTT 65.7 H pCO2 pO2 HCO3 ABG pH ABG Total CO2 ABG O2 Saturation ABG O2 Content ABG Base Excess ABG Hemoglobin ABG Carboxyhemoglobin POC ABG HHb (Measured) ABG Methemoglobin ABG O2 Capacity Hgb O2 Saturation FiO2 Sodium Potassium Chloride Carbon Dioxide Anion Gap BUN Creatinine Est GFR ( Amer) Est GFR (Non-Af Amer) Random Glucose Serum Osmolality Calcium Magnesium Total Bilirubin AST ALT Alkaline Phosphatase Lactate Dehydrogenase Total Creatine Kinase Troponin I NT-Pro-B Natriuret Pep Total Protein Albumin Globulin Albumin/Globulin Ratio Urine Color Light yellow Urine Appearance Clear Urine pH 6.0 Ur Specific [place] <= 1.005 Urine Protein Negative Urine Glucose (UA) 500 H Urine Ketones Negative Urine Blood Trace-intact H Urine Nitrate Negative Urine Bilirubin Negative Urine Urobilinogen 0.2 Ur Leukocyte Esterase Negative Urine RBC Negative Urine WBC 0 - 2 Ur Epithelial Cells 0 - 2 Alcohol, Quantitative 04/12/18 04/12/18 04/12/18 13:00 13:00 13:00 WBC RBC Hgb Hct MCV MCH MCHC RDW Plt Count MPV Gran % Lymph % (Auto) [place] % (Auto) Eos % (Auto) Baso % (Auto) Gran # Lymph # (Auto) [place] # (Auto) Eos # (Auto) Baso # (Auto) PT INR APTT pCO2 pO2 HCO3 ABG pH ABG Total CO2 ABG O2 Saturation ABG O2 Content ABG Base Excess ABG Hemoglobin ABG Carboxyhemoglobin POC ABG HHb (Measured) ABG Methemoglobin ABG O2 Capacity Hgb O2 Saturation FiO2 Sodium 123 L Potassium 4.7 Chloride 82 L Carbon Dioxide 23 Anion Gap 23 H BUN 48 H Creatinine 1.8 H Est GFR ( Amer) 47 Est GFR (Non-Af Amer) 39 Random Glucose 632 H* D Serum Osmolality 301 H Calcium 9.8 Magnesium 2.5 H Total Bilirubin 1.1 AST 32 ALT 30 Alkaline Phosphatase 92 Lactate Dehydrogenase 433 Total Creatine Kinase 119 Troponin I < 0.01 NT-Pro-B Natriuret Pep 890 H Total Protein 8.2 Albumin 4.4 Globulin 3.8 Albumin/Globulin Ratio 1.1 Urine Color Urine Appearance Urine pH Ur Specific [place] Urine Protein Urine Glucose (UA) Urine Ketones Urine Blood Urine Nitrate Urine Bilirubin Urine Urobilinogen Ur Leukocyte Esterase Urine RBC Urine WBC Ur Epithelial Cells Alcohol, Quantitative < 10 04/12/18 14:00 WBC RBC Hgb Hct MCV MCH MCHC RDW Plt Count MPV Gran % Lymph % (Auto) [place] % (Auto) Eos % (Auto) Baso % (Auto) Gran # Lymph # (Auto) [place] # (Auto) Eos # (Auto) Baso # (Auto) PT INR APTT pCO2 24 L pO2 169.0 H HCO3 17.1 L ABG pH 7.46 H ABG Total CO2 17.8 L ABG O2 Saturation 99.8 H ABG O2 Content 13.5 L ABG Base Excess -5.6 L ABG Hemoglobin 9.6 L ABG Carboxyhemoglobin 1.9 H POC ABG HHb (Measured) 0.2 ABG Methemoglobin 0.8 ABG O2 Capacity 13.5 L Hgb O2 Saturation 97.0 FiO2 28.0 Sodium Potassium Chloride Carbon Dioxide Anion Gap BUN Creatinine Est GFR ( Amer) Est GFR (Non-Af Amer) Random Glucose Serum Osmolality Calcium Magnesium Total Bilirubin AST ALT Alkaline Phosphatase Lactate Dehydrogenase Total Creatine Kinase Troponin I NT-Pro-B Natriuret Pep Total Protein Albumin Globulin Albumin/Globulin Ratio Urine Color Urine Appearance Urine pH Ur Specific [place] Urine Protein Urine Glucose (UA) Urine Ketones Urine Blood Urine Nitrate Urine Bilirubin Urine Urobilinogen Ur Leukocyte Esterase Urine RBC Urine WBC Ur Epithelial Cells Alcohol, Quantitative Assessment & Plan - Assessment and Plan (Free Text) Assessment: 58 year old male with PMH NIDDM, paroxysmal atrial fibrillation (on Pradaxa), non-obstructive coronary artery disease, chronic venous stasis ulcers, HTN, COPD and JOSELINE, presents for confusion/AMS, found to have hyperglycemia, MADELYN: AMS: 2/2 CVA vs TIA vs polypharmacy (multiple diuretic use) vs hyperglycemia - CT head negative for acute changes. Moderate chronic microangiopathic changes , mild age related global parenchymal loss. - On ASA, lipitor - Neurology consult. F/u recs. Spoke with Dr Cox, ordered brain MRI. - Orthostatic vital signs - will hold home metalazone, aldactone. Cardiology consulted for appropriate medication regimen. - Hgb A1C. last A1C 6.7 on 07/2017. On ISS high. - Endocrinology consulted. F/u recs. - Corrected Na 132 (for hyperglycemia blood glucose 632). - Seizure precautions - fall precautions - neuro checks - monitor Bilateral feet ulcers: - Wound culture 04/07 reviewed: proteus mirabilis and enterococcus faecalis - Started on Merrem - B/l feet x rays. CRP, ESR. procal - wound culture - ID consulted. f/u recs - Podiatry consulted. F/u recs MADELYN: - Cr 1.8 (baseline 1.2-1.3) - received 500 ml NS bolus in ED - hx of diastolic chf - urine lytes ordered. - renal consulted. f/u recs - avoid nephrotoxic agents Hx of afib: - EKG: Afib @ 111 bpm. Qtc 451 ms - c/w home cardizem, metoprolol, pradaxa - monitor Hx of diastolic CHF: - BNP 890 (prev 2150) - Echo 12/2016: EF 55%. Mildly dilated LV. Mild to moderate concentric LVH. right ventricle moderately dilated. Systolic function of RV moderately reduced. trace to mild AR. Dilated IVC. - MUGA 12/2016 scan showed EF 64%. - CXR persistent moderate cardiomegaly. neg for infiltrates - given lasix 40 mg IV in ED. - on home lasix 40 mg PO BID - c/w home metoprolol. hold home aldactone, metalazone - cardiology consulted. f/u recs Hx of COPD: - duoneb inhaler Hx of DM: - Hgb A1c - ISS high PPX: protonix, pradaxa Case seen and discussed with Dr Garcia. <Cora Garcia - Last Filed: 04/12/18 19:13> Results - Vital Signs Recent Vital Signs: Last Vital Signs Temp 97.5 F L 04/12/18 18:00 Pulse 128 H 04/12/18 18:00 Resp 26 H 04/12/18 18:00 BP 152/85 H 04/12/18 18:00 Pulse Ox 97 04/12/18 16:04 - Labs Result Diagrams: 04/12/18 13:00 04/12/18 13:00 Labs: Laboratory Results - last 24 hr 04/12/18 04/12/18 04/12/18 15:42 15:44 15:55 ESR POC Glucose (mg/dL) > 500 H* > 500 H* Ammonia < 9 L 04/12/18 04/12/18 16:00 18:08 ESR 43 H POC Glucose (mg/dL) > 500 H* Ammonia Attending/Attestation - Attestation I have personally seen and examined this patient.: Yes I have fully participated in the care of the patient.: Yes I have reviewed all pertinent clinical information: Yes Notes (Text): 04/12/18 18:55 58 year old male with past medical history of diabetes, afib on pradaxa, CAD, diastolic CHF, chronic venous stasis ulcers, hypertension, COPD and alcohol use who presents with chronic dyspnea, chronic leg swelling/ulcer and altered mental status. He was found to have hyperglycemia and MADELYN. CT head obtained showing moderate chronic microangiopathic changes, mild age related global parenchymal loss; no acute changes. Neurology evaluation is requested who requested MRI brain. Probnp mildly elevated (890). CXR shows moderate cardiomegaly. He received iv lasix in ER. Will request cardiology evaluation. He is on cardizem, metoprolol and pradaxa for afib. MADELYN noted. He is on lasix bid, spironalactone and metolazone at home. Nephrology evaluation is requested. Hold spironalactone and metolazone for now. Continue with insulin ss for diabetes. A1c level is ordered. Januvia on hold for now but if resumed will need to be renally dosed. Podiatry and ID evaluation requested for bilateral feet ulcerations. Xrays reviewed. ESR / CRP ordered. Wound culture from 04/07 grew proteus mirabilis and enterococcus faecalis. Started on iv antibiotics. LE doppler ordered. Counselled on alcohol cessation. Monitor for withdrawal symptoms. Cora Garcia MD Hospitalist.
[2018-04-12] MEDS ORDERED: Meropenem 500 MG in Sodium Chloride 0.9% 50 ML IVPB SCH (16:00)
[2018-04-12] MEDS ORDERED: Insulin Regular 1 UNITS/0.01 ML ML IV ONE (16:06)
[2018-04-12] MEDS: Oxycodone/Acetaminophen 5/325 mg Tab PO PRN ×2 (16:22→21:56)
[2018-04-12] MEDS: diltiaZEM 240 mg/24 Hours CD Cap PO SCH (16:23)
[2018-04-12] MEDS: Pantoprazole 40 mg EC Tab PO SCH (16:24)
[2018-04-12] MEDS ORDERED: Insulin Lispro (humaLOG) MEDIUM Coverage SC SCH (16:30)
[2018-04-12] MEDS ORDERED: Levalbuterol 1.25 MG/3 ML Inhal Soln UD IH PRN (16:53)
--- NOTE | 2018-04-12 17:12 | CT ---
Date of service: 04/12/2018 PROCEDURE: CT HEAD WITHOUT CONTRAST. HISTORY: AMS COMPARISON: 11/24/2016. TECHNIQUE: Axial computed tomography images were obtained through the head/brain without intravenous contrast. Radiation dose: Total exam DLP = 899.12 mGy-cm. This CT exam was performed using one or more of the following dose reduction techniques: Automated exposure control, adjustment of the mA and/or kV according to patient size, and/or use of iterative reconstruction technique. FINDINGS: HEMORRHAGE: No intracranial hemorrhage. BRAIN: There are moderate chronic microangiopathic changes. There is no mass, mass effect or abnormal extra-axial fluid collection. There is no territorial infarction. The midline sagittal structures are normal.There are coarse atherosclerotic calcifications in the cavernous carotid arteries. VENTRICLES: There is mild age-related global parenchymal volume loss and proportionate enlargement of the ventricles and cortical sulci. CALVARIUM: The skull base and calvarium are normal. PARANASAL SINUSES: Predominantly clear. MASTOID AIR CELLS: Predominantly clear. OTHER FINDINGS: None. IMPRESSION: No acute intracranial abnormality. Moderate chronic microangiopathic changes and mild age-related global parenchymal volume loss.
--- NOTE | 2018-04-12 17:14 | RAD ---
Date of service: 04/12/2018 PROCEDURE: Left Foot Radiographs. HISTORY: r/o osteomyelitis COMPARISON: None. FINDINGS: BONES: Bone alignment and mineralization are normal. There is no acute displaced fracture or bone destruction. There is a large plantar calcaneal spur. There is a small dorsal calcaneal enthesophyte JOINTS: Mild degenerative osteoarthrosis in the 1st MTP joint and talonavicular joint. SOFT TISSUES: Normal. OTHER FINDINGS: None. IMPRESSION: No acute bone destruction or erosion to suspect osteomyelitis. However if there is a persistent clinical concern, correlation with MRI may be performed for definitive evaluation.
--- NOTE | 2018-04-12 17:15 | RAD ---
Date of service: 04/12/2018 PROCEDURE: Right Foot Radiographs. HISTORY: r/o osteomyelitis COMPARISON: None. FINDINGS: BONES: There is diffuse bone demineralization. No acute fracture or bone destruction. No definite evidence for bone erosion. There is a prominent plantar calcaneal spur and dorsal calcaneal enthesophyte. JOINTS: There is severe degenerative osteoarthrosis in the 1st MTP joint. SOFT TISSUES: Normal. OTHER FINDINGS: None. IMPRESSION: No radiographic evidence for acute osteomyelitis. If there is a persistent clinical concern, correlation with MRI may be performed for definitive evaluation. Severe degenerative osteoarthrosis in the 1st MTP joint.
[2018-04-12] MEDS: Insulin Lispro (HUMAlog) HIGH Coverage SC SCH ×2 (17:27→21:36)
[2018-04-12] MEDS: Potassium Chloride 20 mEq ER Tab PO SCH (17:27)
[2018-04-12 17:45] VITALS: BMI 33.9
[2018-04-12] MEDS ORDERED: Pneumococcal 23-Valent Vaccine IM ONE (17:46)
[2018-04-12] MEDS ORDERED: Dextrose 50% SYRINGE Inj (50 ml) IV PRN (18:54)
[2018-04-12] MEDS ORDERED: Multivitamin (MVI) 10 ML, Thiamine 100 MG, Folic Acid 1 MG in Sodium Chloride 0.9% 1,00... IV ONE (18:56)
[2018-04-12 20:19] LABS: BENZODIAZEPINES, UR NEGATIVE (NEGATIVE)
[2018-04-12 20:39] LABS: BARBITURATES, UR NEGATIVE (NEGATIVE); CREATININE,RANDOM URINE 21 mg/dL; OPIATES, UR POSITIVE (NEGATIVE); PHENCYCLIDINE, UR NEGATIVE (NEGATIVE)
[2018-04-12 20:43] LABS: OSMOLALITY,URINE 357 mosm/kg (300-1000)
[2018-04-12] MEDS ORDERED: Insulin Detemir 100 units/ml Vial (Levemir) SC ONE (21:00)
[2018-04-12 22:18] LABS: VENOUS BLOOD GAS BASE EXCESS 0.8 mmol/L (0.0-2.0); VENOUS BLOOD GAS PO2 29 mm/Hg (30-55); VENOUS BLOOD PH 7.35 (7.32-7.43)
[2018-04-12 22:32] LABS: ALB/GLOB RATIO 1.1 (1.1-1.8); ALBUMIN 4.1 g/dL (3.0-4.8); CALCIUM 9.6 mg/dL (8.4-10.5)
[2018-04-12] MEDS ORDERED: Insulin Detemir 100 units/ml Vial (Levemir) SC STA (23:54)
--- NOTE | 2018-04-13 00:19 | CON ---
Copied To: Chelsea Salvador MD Attending MD: Chelsea Salvador MD DATE: 04/12/2018 ENDOCRINOLOGY CONSULTATION LOCATION: In room 261. HISTORY OF PRESENT ILLNESS: This is a 58-year-old male with known history of type 2 diabetes, hypertension, presenting here with progressively worsening confusion and dizziness and lightheadedness over the last few days and actually drove himself to the emergency room for further evaluation and subsequent admission. He is being referred now for diabetic evaluation because of marked hyperglycemic accelerations with glucose levels over 500 mg/dL. PAST MEDICAL HISTORY: As mentioned above, history of type 2 diabetes, on oral hypoglycemic therapy, taking Januvia at 100 mg daily. History of hypertension and dyslipidemia, history of paroxysmal atrial fibrillation, on oral anticoagulation with Pradaxa therapy, history of coronary artery disease and peripheral arterial disease and vasculopathy with chronic venous stasis and neuropathic ulcerations, history of chronic obstructive lung disease with obstructive sleep apnea and previous admissions for exacerbations of the same. FAMILY HISTORY: Positive for diabetes and hypertension. SOCIAL HISTORY: Patient has a significant 40-pack history of nicotine dependence, but quit over 10 years ago. Also admits to chronic alcoholism with daily intake of beer. He has a supportive family otherwise, but lives alone as noted. REVIEW OF SYSTEMS: As mentioned above. Admits to generalized body weakness with increasing bouts of dizziness and lightheadedness, worse in the last day or so prior to admission. He also admits to confusion and disorientation with increasing lapses of memory, moreover admits to generalized body weakness with easy fatigability and tiredness. No chest pains, but admits to progressive bouts of shortness of breath especially on exertion with paroxysmal nocturnal dyspnea. His oral intake has been variable with dyspepsia, nausea and vague abdominal pain. Also admits to marked polyuria, nocturia and polydipsia, again worse in the last week or so prior to admission. PHYSICAL EXAMINATION: GENERAL: He is an overweight male in no apparent distress. VITAL SIGNS: With a blood pressure of 150/90, pulse of 100 beats per minute and regular, temperature 98, respirations 20, height is 6 feet, weight is 250 pounds. HEENT: Head normocephalic. Eyes anicteric with pink conjunctivae. Funduscopy not possible at this time. Ears, nose and throat otherwise normal. NECK: Supple. Thyroid gland is normal in size. No carotid bruits or cervical adenopathy. CARDIOPULMONARY: Some adynamic precordium. S1, S2 is rapid and regular. LUNGS: Clear to auscultation. ABDOMEN: Obese, soft with positive bowel sounds. EXTREMITIES: No peripheral edema. Pulses are +2 bilaterally. LABORATORY DATA: His initial chemistry showed a BUN of 48, sodium 123, potassium 4.7, chloride 82, CO2 of 23, glucose 632 and creatinine 1.8. His ProBNP was 890. Ammonia less than 9. ASSESSMENT: This is a 58-year-old male with uncontrolled and decompensated type 2 insulin-requiring diabetes, presenting here with marked hyperglycemic accelerations and supervening with supervening congestive heart failure with underlying significant cardiac vasculopathy. He also has diabetic microvascular complications of retinopathy, polyneuropathy and nephropathy with underlying chronic kidney disease. Moreover, he has diabetic macrovascular complications of coronary artery disease and peripheral arterial disease and vasculopathy. PLAN OF MANAGEMENT: We will obtain a hemoglobin A1c to confirm his prior glycemic control and baseline thyroid function studies and the lipid panel will be ordered. Moreover, we will also start him right away on a more physiologic basal and bolus insulin drug combination with Humalog given as 12 units subcu t.i.d. before meals to start tomorrow morning at breakfast time. We will also modify the coverage scale to obviate hypoglycemia with a very low-dose algorithm using Humalog insulin as given. We will also add basal insulin with Levemir to be added as 30 units subcu at bedtime daily to start tomorrow night. We will obtain serial chemistries and supplement accordingly needed. We will also initiate diabetic education to include insulin self-administration. We will also consult the dietitian for nutritional evaluation and healthier food choices and to include weight loss efforts. We will follow and advise accordingly. Chelsea Salvaodr MD
[2018-04-13 01:46] LABS: VENOUS BLOOD GAS BASE EXCESS 1.1 mmol/L (0.0-2.0); VENOUS BLOOD GAS PO2 26 mm/Hg (30-55); VENOUS BLOOD PH 7.32 (7.32-7.43)
[2018-04-13] MEDS ORDERED: Insulin Regular 1 UNITS/0.01 ML ML SC STA (03:34)
[2018-04-13] MEDS: Oxycodone/Acetaminophen 5/325 mg Tab PO PRN ×3 (06:38→20:32)
[2018-04-13] MEDS ORDERED: Insulin Lispro 1 UNITS/0.01 ML SC SCH (07:30)
[2018-04-13] MEDS ORDERED: Insulin Lispro (humaLOG) LOW Coverage SC SCH (07:30)
[2018-04-13 07:35] LABS: BASO # 0.08 K/mm3 (0.0-2.0); BASO % 1.1 % (0.0-3.0); EOS # 0.3 (0.0-0.7); EOS % 3.8 % (1.5-5.0); GRAN # 4.38 (1.4-6.5); GRAN % 61.5 % (50.0-68.0); HEMOGLOBIN 12.2 g/dL (14.0-18.0); LYMPH # 1.8 (1.2-3.4); LYMPH % 24.5 % (22.0-35.0); MEAN CELL VOLUME 89.3 fl (80.0-105.0); MEAN CORPUSCULAR HEMOGLOBIN 30.3 pg (25.0-35.0); MEAN CORPUSCULAR HGB CONC 33.9 g/dl (31.0-37.0); MEAN PLATELET VOLUME 9.8 fl (7.0-11.0); MONO # 0.7 (0.1-0.6); MONO % 9.1 % (1.0-6.0); RBC 4.03 10^6/uL (3.5-6.1); RED CELL DISTRIBUTION WIDTH 14.1 % (11.5-14.5); WHITE BLOOD COUNT 7.1 10^3/ul (4.5-11.0)
[2018-04-13 07:54] LABS: ALBUMIN 3.4 g/dL (3.0-4.8); ALT/SGPT 30 U/L (7-56); AST/SGOT 31 U/L (17-59); BLOOD UREA NITROGEN 44 mg/dL (7-21); CALCIUM 8.7 mg/dL (8.4-10.5); GFR NON-AFRICAN AMERICAN 39; HDL CHOLESTEROL 23 mg/dL (29-60)
[2018-04-13 07:55] LABS: LDL CHOLESTEROL 99 mg/dL (0-129); TROPONIN I < 0.01 ng/mL
--- NOTE | 2018-04-13 08:24 | CP.PCM.CON ---
History of Present Illness - History of Present Illness History of Present Illness: awake, alert, lying in bed, denies shortness of breath but on exertion,climbing stairs Reason for consultation: Cardiac evaluation for shortness of breath when climbing the stairs,history of paroxysmal atrial fibrillation on Pradaxa, coronary artery disease with stents,COPD, NIDDM, JOSELINE, Brief history of present illness:A 58 year old male morbidly obese, who came in to the ER due to not feeling well. Blood glucose in ER was 638.Uncontrolled blood glucose.Insulin given in ER. He claimed to have shortness of breath when climbing stairs. History of paroxysmal atrial fibrillation on Pradaxa,COPD, coronary artery disease with stents, non-insulin diabetes mellitus,obstructive sleep apnea,hypertension, chronic venous stasis on both legs, former smoker, drinks beer everyday.Denies shortness of breath lying in bed. Seen and examined by me and Dr. Rogers Review of Systems - Review of Systems All systems: reviewed and no additional remarkable complaints except Review of Systems: per HPI Past Patient History - Infectious Disease Hx of Infectious Diseases: None - Tetanus Immunizations Tetanus Immunization: Unknown - Past Social History Smoking Status: Former Smoker Alcohol: > 2 Drinks/Day - CARDIAC Hx Cardiac Disorders: Yes Hx Congestive Heart Failure: Yes Hx Hypertension: Yes - PULMONARY Hx Respiratory Disorders: Yes Hx Sleep Apnea: Yes - NEUROLOGICAL Hx Neurological Disorder: Yes Other/Comment: tremors - HEENT Hx HEENT Problems: Yes Other/Comment: glasses - RENAL Hx Renal Failure: Yes (ARF 11/2014) - ENDOCRINE/METABOLIC Hx Diabetes Mellitus Type 2: Yes - HEMATOLOGICAL/ONCOLOGICAL Hx Blood Disorders: No - INTEGUMENTARY Hx Dermatological Problems: No Other/Comment: cellulitis on sudhir lower ext. Chronic venous insufficiency ( previous triage) - MUSCULOSKELETAL/RHEUMATOLOGICAL Hx Falls: No - GASTROINTESTINAL Hx Gastroesophageal Reflux: Yes - GENITOURINARY/GYNECOLOGICAL Hx Genitourinary Disorders: No - PSYCHIATRIC Hx Psychophysiologic Disorder: Yes Hx Anxiety: Yes Hx Substance Use: No - SURGICAL HISTORY Hx Appendectomy: Yes Hx Cardiac Catheterization: Yes (04/2014) Hx Coronary Stent: Yes - ANESTHESIA Hx Anesthesia: Yes Hx Anesthesia Reactions: No Hx Malignant Hyperthermia: No Meds Allergies/Adverse Reactions: Allergies Allergy/AdvReac Type Severity Reaction Status Date / Time meropenem [From Merrem] AdvReac PAIN Verified 04/12/18 18:25 - Medications Medications: Current Medications Aspirin (Aspirin Chewable) 81 mg PO DAILY [facility] Last Admin: 04/12/18 16:21 Dose: 81 mg Dabigatran (Pradaxa) 150 mg PO Q12 SHAHEED PRN Reason: Protocol Last Admin: 04/12/18 21:32 Dose: 150 mg Dextrose (Dextrose 50% Inj) 0 ml IV STAT PRN; Protocol PRN Reason: Hypoglycemia Protocol Diltiazem HCl (Cardizem Cd) 240 mg PO DAILY [facility] Last Admin: 04/12/18 16:23 Dose: 240 mg Furosemide (Lasix) 40 mg PO 0600,1800 [facility] Last Admin: 04/13/18 05:49 Dose: 40 mg Dextrose (Dextrose 5% In Water 1000 Ml) 1,000 mls @ 0 mls/hr IV .Q0M PRN; Protocol; Per Protocol PRN Reason: Hypoglycemia Protocol Multivitamins/Vitamin C 10 ml/Thiamine HCl 100 mg/ Folic Acid 1 mg/ Sodium Chloride 1,011.2 mls @ 70 mls/hr IV .[id number] ONE Stop: 04/13/18 09:22 Last Admin: 04/12/18 21:46 Dose: 70 mls/hr Insulin Detemir (Levemir) 30 unit SC HS SHAHEED Insulin Human Lispro (Humalog) 12 units SC AC SHAHEED Insulin Human Lispro (Humalog Med) 0 units SC ACHS [facility] PRN Reason: Protocol Levalbuterol HCl (Xopenex) 1.25 mg IH [id number] PRN PRN Reason: Shortness of Breath Lorazepam (Ativan) 2 mg IVP Q6H PRN; Protocol PRN Reason: Symptoms of alcohol withdrawl Last Admin: 04/12/18 21:57 Dose: 2 mg Metoprolol Tartrate (Lopressor) 50 mg PO Q12 [facility] Last Admin: 04/12/18 21:32 Dose: 50 mg Oxycodone/Acetaminophen (Percocet 5/325 Mg Tab) 1 tab PO Q6H PRN PRN Reason: Pain, moderate (4-7) Stop: 04/15/18 15:53 Last Admin: 04/13/18 06:38 Dose: 1 tab Pantoprazole Sodium (Protonix Ec Tab) 40 mg PO ACB [facility] Last Admin: 04/12/18 16:24 Dose: 40 mg Potassium Chloride (K-Dur 20 Meq Er Tab) 20 meq PO BRK SHAHEED Last Admin: 04/12/18 17:27 Dose: 20 meq Physical Exam - Constitutional Appears: No Acute Distress - Eye Exam Eye Exam: Normal appearance - Respiratory Exam Respiratory Exam: Decreased Breath Sounds, NORMAL BREATHING PATTERN - Cardiovascular Exam Cardiovascular Exam: Irregular Rhythm, +S1, +S2 Additional comments: telemetry afib controlled rate at 70's - GI/Abdominal Exam GI & Abdominal Exam: Normal Bowel Sounds, Soft - Extremities Exam Additional comments: right leg dressing 3+ edema - Neurological Exam Neurological exam: Alert, Oriented x3 - Psychiatric Exam Psychiatric exam: Normal Affect - Skin Skin Exam: Dry, Warm Results - Vital Signs Recent Vital Signs: Last Vital Signs Temp 97.8 F 04/13/18 06:00 Pulse 80 04/13/18 06:00 Resp 20 04/13/18 06:00 BP 125/70 04/13/18 06:00 Pulse Ox 97 04/12/18 16:04 - Labs Result Diagrams: 04/13/18 06:30 04/13/18 06:30 Labs: Laboratory Results - last 24 hr 04/12/18 04/12/18 04/12/18 15:42 15:44 15:55 WBC RBC Hgb Hct MCV MCH MCHC RDW Plt Count MPV Gran % Lymph % (Auto) Amador % (Auto) Eos % (Auto) Baso % (Auto) Gran # Lymph # (Auto) Amador # (Auto) Eos # (Auto) Baso # (Auto) ESR pO2 VBG pH VBG pCO2 VBG HCO3 VBG Total CO2 VBG O2 Sat (Calc) VBG Base Excess VBG Potassium Glucose Lactate FiO2 Sodium Potassium Chloride Carbon Dioxide Anion Gap BUN Creatinine Est GFR ( Amer) Est GFR (Non-Af Amer) POC Glucose (mg/dL) > 500 H* > 500 H* Random Glucose Hemoglobin A1c 13.9 H D Calcium Phosphorus Magnesium Total Bilirubin AST ALT Alkaline Phosphatase Ammonia Troponin I C-Reactive Protein Total Protein Albumin Globulin Albumin/Globulin Ratio Triglycerides Cholesterol LDL Cholesterol Direct HDL Cholesterol Procalcitonin TSH 3rd Generation Venous Blood Potassium Urine Osmolality Ur Random Creatinine Ur Random Sodium Ur Random Urea Nitrogn Urine Opiates Screen Urine Methadone Screen Ur Barbiturates Screen Ur Phencyclidine Scrn Ur Amphetamines Screen U Benzodiazepines Scrn U Oth Cocaine Metabols U Cannabinoids Screen 04/12/18 04/12/18 04/12/18 15:55 16:00 16:00 WBC RBC Hgb Hct MCV MCH MCHC RDW Plt Count MPV Gran % Lymph % (Auto) Amador % (Auto) Eos % (Auto) Baso % (Auto) Gran # Lymph # (Auto) [place] # (Auto) Eos # (Auto) Baso # (Auto) ESR 43 H pO2 VBG pH VBG pCO2 VBG HCO3 VBG Total CO2 VBG O2 Sat (Calc) VBG Base Excess VBG Potassium Glucose Lactate FiO2 Sodium Potassium Chloride Carbon Dioxide Anion Gap BUN Creatinine Est GFR ( Amer) Est GFR (Non-Af Amer) POC Glucose (mg/dL) Random Glucose Hemoglobin A1c Calcium Phosphorus Magnesium Total Bilirubin AST ALT Alkaline Phosphatase Ammonia < 9 L Troponin I C-Reactive Protein Total Protein Albumin Globulin Albumin/Globulin Ratio Triglycerides Cholesterol LDL Cholesterol Direct HDL Cholesterol Procalcitonin 0.13 L TSH 3rd Generation Venous Blood Potassium Urine Osmolality Ur Random Creatinine Ur Random Sodium Ur Random Urea Nitrogn Urine Opiates Screen Urine Methadone Screen Ur Barbiturates Screen Ur Phencyclidine Scrn Ur Amphetamines Screen U Benzodiazepines Scrn U Oth Cocaine Metabols U Cannabinoids Screen 04/12/18 04/12/18 04/12/18 16:00 18:08 18:30 WBC RBC Hgb Hct MCV MCH MCHC RDW Plt Count MPV Gran % Lymph % (Auto) Am[place] % (Auto) Eos % (Auto) Baso % (Auto) Gran # Lymph # (Auto) [place] # (Auto) Eos # (Auto) Baso # (Auto) ESR pO2 VBG pH VBG pCO2 VBG HCO3 VBG Total CO2 VBG O2 Sat (Calc) VBG Base Excess VBG Potassium Glucose Lactate FiO2 Sodium Potassium Chloride Carbon Dioxide Anion Gap BUN Creatinine Est GFR ( Amer) Est GFR (Non-Af Amer) POC Glucose (mg/dL) > 500 H* Random Glucose Hemoglobin A1c Calcium Phosphorus Magnesium Total Bilirubin AST ALT Alkaline Phosphatase Ammonia Troponin I C-Reactive Protein 35.00 H Total Protein Albumin Globulin Albumin/Globulin Ratio Triglycerides Cholesterol LDL Cholesterol Direct HDL Cholesterol Procalcitonin TSH 3rd Generation Venous Blood Potassium Urine Osmolality 357 Ur Random Creatinine Ur Random Sodium 48 Ur Random Urea Nitrogn Urine Opiates Screen Urine Methadone Screen Ur Barbiturates Screen Ur Phencyclidine Scrn Ur Amphetamines Screen U Benzodiazepines Scrn U Oth Cocaine Metabols U Cannabinoids Screen 04/12/18 04/12/18 04/12/18 18:30 18:30 21:14 WBC RBC Hgb Hct MCV MCH MCHC RDW Plt Count MPV Gran % Lymph % (Auto) Am[place] % (Auto) Eos % (Auto) Baso % (Auto) Gran # Lymph # (Auto) [place] # (Auto) Eos # (Auto) Baso # (Auto) ESR pO2 VBG pH VBG pCO2 VBG HCO3 VBG Total CO2 VBG O2 Sat (Calc) VBG Base Excess VBG Potassium Glucose Lactate FiO2 Sodium Potassium Chloride Carbon Dioxide Anion Gap BUN Creatinine Est GFR ( Amer) Est GFR (Non-Af Amer) POC Glucose (mg/dL) 494 H* Random Glucose Hemoglobin A1c Calcium Phosphorus Magnesium Total Bilirubin AST ALT Alkaline Phosphatase Ammonia Troponin I C-Reactive Protein Total Protein Albumin Globulin Albumin/Globulin Ratio Triglycerides Cholesterol LDL Cholesterol Direct HDL Cholesterol Procalcitonin TSH 3rd Generation Venous Blood Potassium Urine Osmolality Ur Random Creatinine 21 Ur Random Sodium Ur Random Urea Nitrogn 195 Urine Opiates Screen Positive H Urine Methadone Screen Negative Ur Barbiturates Screen Negative Ur Phencyclidine Scrn Negative Ur Amphetamines Screen Negative U Benzodiazepines Scrn Negative U Oth Cocaine Metabols Negative U Cannabinoids Screen Negative 04/12/18 04/12/18 04/12/18 21:16 21:16 22:05 WBC RBC Hgb Hct MCV MCH MCHC RDW Plt Count MPV Gran % Lymph % (Auto) Amador % (Auto) Eos % (Auto) Baso % (Auto) Gran # Lymph # (Auto) [place] # (Auto) Eos # (Auto) Baso # (Auto) ESR pO2 29 L VBG pH 7.35 VBG pCO2 49.0 VBG HCO3 27.1 VBG Total CO2 28.6 H VBG O2 Sat (Calc) 59.8 VBG Base Excess 0.8 VBG Potassium 4.3 Glucose 471 H* D Lactate 2.2 H FiO2 21.0 Sodium 126 L 124.0 L Potassium 5.0 Chloride 84 L 85.0 L Carbon Dioxide 27 Anion Gap 20 BUN 50 H Creatinine 2.0 H Est GFR ( Amer) 41 Est GFR (Non-Af Amer) 34 POC Glucose (mg/dL) Random Glucose 514 H* Hemoglobin A1c Calcium 9.6 Phosphorus Magnesium 2.4 H Total Bilirubin 0.9 AST 31 ALT 26 Alkaline Phosphatase 86 Ammonia Troponin I < 0.01 C-Reactive Protein Total Protein 7.8 Albumin 4.1 Globulin 3.7 Albumin/Globulin Ratio 1.1 Triglycerides Cholesterol LDL Cholesterol Direct HDL Cholesterol Procalcitonin TSH 3rd Generation Venous Blood Potassium 4.3 Urine Osmolality Ur Random Creatinine Ur Random Sodium Ur Random Urea Nitrogn Urine Opiates Screen Urine Methadone Screen Ur Barbiturates Screen Ur Phencyclidine Scrn Ur Amphetamines Screen U Benzodiazepines Scrn U Oth Cocaine Metabols U Cannabinoids Screen 04/12/18 04/13/18 04/13/18 23:11 01:40 02:42 WBC RBC Hgb Hct MCV MCH MCHC RDW Plt Count MPV Gran % Lymph % (Auto) Amador % (Auto) Eos % (Auto) Baso % (Auto) Gran # Lymph # (Auto) [place] # (Auto) Eos # (Auto) Baso # (Auto) ESR pO2 26 L VBG pH 7.32 VBG pCO2 55.0 VBG HCO3 28.3 H VBG Total CO2 30.0 H VBG O2 Sat (Calc) 51.6 VBG Base Excess 1.1 VBG Potassium 4.2 Glucose 450 H* Lactate 1.9 FiO2 21.0 Sodium 125.0 L Potassium Chloride 88.0 L Carbon Dioxide Anion Gap BUN Creatinine Est GFR ( Amer) Est GFR (Non-Af Amer) POC Glucose (mg/dL) 474 H* 439 H* Random Glucose Hemoglobin A1c Calcium Phosphorus Magnesium Total Bilirubin AST ALT Alkaline Phosphatase Ammonia Troponin I C-Reactive Protein Total Protein Albumin Globulin Albumin/Globulin Ratio Triglycerides Cholesterol LDL Cholesterol Direct HDL Cholesterol Procalcitonin TSH 3rd Generation Venous Blood Potassium 4.2 Urine Osmolality Ur Random Creatinine Ur Random Sodium Ur Random Urea Nitrogn Urine Opiates Screen Urine Methadone Screen Ur Barbiturates Screen Ur Phencyclidine Scrn Ur Amphetamines Screen U Benzodiazepines Scrn U Oth Cocaine Metabols U Cannabinoids Screen 04/13/18 04/13/18 04/13/18 06:30 06:30 06:30 WBC 7.1 D RBC 4.03 Hgb 12.2 L Hct 36.0 L MCV 89.3 MCH 30.3 MCHC 33.9 RDW 14.1 Plt Count 323 MPV 9.8 Gran % 61.5 Lymph % (Auto) 24.5 Amador % (Auto) 9.1 H Eos % (Auto) 3.8 Baso % (Auto) 1.1 Gran # 4.38 Lymph # (Auto) 1.8 Amador # (Auto) 0.7 H Eos # (Auto) 0.3 Baso # (Auto) 0.08 ESR pO2 VBG pH VBG pCO2 VBG HCO3 VBG Total CO2 VBG O2 Sat (Calc) VBG Base Excess VBG Potassium Glucose Lactate FiO2 Sodium 130 L Potassium 3.7 Chloride 88 L Carbon Dioxide 30 Anion Gap 15 BUN 44 H Creatinine 1.8 H Est GFR ( Amer) 47 Est GFR (Non-Af Amer) 39 POC Glucose (mg/dL) Random Glucose 395 H* D Hemoglobin A1c Calcium 8.7 Phosphorus 3.1 Magnesium 2.4 H Total Bilirubin 0.7 AST 31 ALT 30 Alkaline Phosphatase 71 Ammonia Troponin I < 0.01 C-Reactive Protein Total Protein 6.9 Albumin 3.4 Globulin 3.5 Albumin/Globulin Ratio 1.0 L Triglycerides 130 Cholesterol 144 LDL Cholesterol Direct 99 HDL Cholesterol 23 L Procalcitonin TSH 3rd Generation 2.67 Venous Blood Potassium Urine Osmolality Ur Random Creatinine Ur Random Sodium Ur Random Urea Nitrogn Urine Opiates Screen Urine Methadone Screen Ur Barbiturates Screen Ur Phencyclidine Scrn Ur Amphetamines Screen U Benzodiazepines Scrn U Oth Cocaine Metabols U Cannabinoids Screen 04/13/18 04/13/18 06:34 07:34 WBC RBC Hgb Hct MCV MCH MCHC RDW Plt Count MPV Gran % Lymph % (Auto) Amador % (Auto) Eos % (Auto) Baso % (Auto) Gran # Lymph # (Auto) [place] # (Auto) Eos # (Auto) Baso # (Auto) ESR pO2 VBG pH VBG pCO2 VBG HCO3 VBG Total CO2 VBG O2 Sat (Calc) VBG Base Excess VBG Potassium Glucose Lactate FiO2 Sodium Potassium Chloride Carbon Dioxide Anion Gap BUN Creatinine Est GFR ( Amer) Est GFR (Non-Af Amer) POC Glucose (mg/dL) 379 H 376 H Random Glucose Hemoglobin A1c Calcium Phosphorus Magnesium Total Bilirubin AST ALT Alkaline Phosphatase Ammonia Troponin I C-Reactive Protein Total Protein Albumin Globulin Albumin/Globulin Ratio Triglycerides Cholesterol LDL Cholesterol Direct HDL Cholesterol Procalcitonin TSH 3rd Generation Venous Blood Potassium Urine Osmolality Ur Random Creatinine Ur Random Sodium Ur Random Urea Nitrogn Urine Opiates Screen Urine Methadone Screen Ur Barbiturates Screen Ur Phencyclidine Scrn Ur Amphetamines Screen U Benzodiazepines Scrn U Oth Cocaine Metabols U Cannabinoids Screen Assessment & Plan - Assessment and Plan (Free Text) Assessment: A 58 year old male morbidly obese, who came in to the ER due to not feeling well. Blood glucose in ER was 638.Uncontrolled blood glucose.Insulin given in ER. He claimed to have shortness of breath when climbing stairs. History of paroxysmal atrial fibrillation on Pradaxa,COPD,coronary artery disease with stents, non-insulin diabetes mellitus,obstructive sleep apnea,hypertension, chronic venous stasis on both legs, former smoker, drinks beer everyday.Denies shortness of breath lying in bed. Uncontrolled diabetes mellitus. Chest X ray normal,cardiomegaly.Exacerbation of COPD. Review of previous cardiac work up: 12/17/16- ECHO-Mild to moderate concentric LV hyperthropy LVEF 55%, Moderately dilated TV Moderately reduced systolic RV Moderate AR, Trace MR/TR 12/18/16- Muga scan-RV normal wall motion, LV normal LVEF 64% Plan: Will repeat ECHO to evaluate LV function Extra Lasix given in ER Continue IV fluids for hydration On ASA 81 mg daily,Lopressor 50 mg every 12 hours,Cardizem CD 240 mg daily, Pradaxa 150 mg every 12 hours, Uncontrolled glucose Endocrine on consult ID on consult Leg ulcers evaluated by Podiatry Pulmonary and Renal on consult Continue current medications Continue current treatment Further recommendation during hospital course Will follow up Plan and treatment discussed with Dr. Rogers Thank you for the opportunity of taking care of Mr. Mark Doan - Date & Time Date: 04/13/18 Time: 06:35
[2018-04-13] MEDS: Insulin Lispro (humaLOG) MEDIUM Coverage SC SCH ×4 (08:42→21:25)
[2018-04-13] MEDS ORDERED: Vancomycin 1gm in NS 250ml 1 GM/250 ML BAG IVPB STA (10:09)
[2018-04-13] MEDS: diltiaZEM 240 mg/24 Hours CD Cap PO SCH (10:13)
[2018-04-13] MEDS: Pantoprazole 40 mg EC Tab PO SCH (10:13)
[2018-04-13] MEDS: Potassium Chloride 20 mEq ER Tab PO SCH (10:14)
--- NOTE | 2018-04-13 10:32 | CP.PCM.CON ---
History of Present Illness - History of Present Illness History of Present Illness: I was asked to consult on , a 58 yr old male with pmh of paroxysmal afib, who was found wandering and confused near his house. Of note, his blood sugar was 638 on presentation, and his family says he was confused for many days. PMH/PSH: paroxysmal afib, CAD, stent placement, COPD, NIDDM, JOSELINE, obesity FH/SH : unmarried. no tobacco, drinks several beers daily All:nkda on exam: Normal neurological examination. Past Patient History - Infectious Disease Hx of Infectious Diseases: None - Tetanus Immunizations Tetanus Immunization: Unknown - Past Social History Smoking Status: Former Smoker Alcohol: > 2 Drinks/Day - CARDIAC Hx Cardiac Disorders: Yes Hx Congestive Heart Failure: Yes Hx Hypertension: Yes - PULMONARY Hx Respiratory Disorders: Yes Hx Sleep Apnea: Yes - NEUROLOGICAL Hx Neurological Disorder: Yes Other/Comment: tremors - HEENT Hx HEENT Problems: Yes Other/Comment: glasses - RENAL Hx Renal Failure: Yes (ARF 11/2014) - ENDOCRINE/METABOLIC Hx Diabetes Mellitus Type 2: Yes - HEMATOLOGICAL/ONCOLOGICAL Hx Blood Disorders: No - INTEGUMENTARY Hx Dermatological Problems: No Other/Comment: cellulitis on sudhir lower ext. Chronic venous insufficiency ( previous triage) - MUSCULOSKELETAL/RHEUMATOLOGICAL Hx Falls: No - GASTROINTESTINAL Hx Gastroesophageal Reflux: Yes - GENITOURINARY/GYNECOLOGICAL Hx Genitourinary Disorders: No - PSYCHIATRIC Hx Psychophysiologic Disorder: Yes Hx Anxiety: Yes Hx Substance Use: No - SURGICAL HISTORY Hx Appendectomy: Yes Hx Cardiac Catheterization: Yes (04/2014) Hx Coronary Stent: Yes - ANESTHESIA Hx Anesthesia: Yes Hx Anesthesia Reactions: No Hx Malignant Hyperthermia: No Meds Allergies/Adverse Reactions: Allergies Allergy/AdvReac Type Severity Reaction Status Date / Time meropenem [From Merrem] AdvReac PAIN Verified 04/12/18 18:25 - Medications Medications: Current Medications Aspirin (Aspirin Chewable) 81 mg PO DAILY [facility] Last Admin: 04/12/18 16:21 Dose: 81 mg Dabigatran (Pradaxa) 150 mg PO Q12 SHAHEED PRN Reason: Protocol Last Admin: 04/12/18 21:32 Dose: 150 mg Dextrose (Dextrose 50% Inj) 0 ml IV STAT PRN; Protocol PRN Reason: Hypoglycemia Protocol Diltiazem HCl (Cardizem Cd) 240 mg PO DAILY [facility] Last Admin: 04/12/18 16:23 Dose: 240 mg Furosemide (Lasix) 40 mg PO 0600,1800 [facility] Last Admin: 04/13/18 05:49 Dose: 40 mg Dextrose (Dextrose 5% In Water 1000 Ml) 1,000 mls @ 0 mls/hr IV .Q0M PRN; Protocol; Per Protocol PRN Reason: Hypoglycemia Protocol Vancomycin HCl (Vancomycin 1gm) 1 gm in 250 mls @ 167 mls/hr IVPB STAT STA PRN Reason: Protocol Stop: 04/13/18 11:38 Insulin Detemir (Levemir) 30 unit SC HS SHAHEED Insulin Human Lispro (Humalog) 12 units SC AC [facility] Last Admin: 04/13/18 08:43 Dose: 12 units Insulin Human Lispro (Humalog Med) 0 units SC ACHS SHAHEED PRN Reason: Protocol Last Admin: 04/13/18 08:42 Dose: 7 units Levalbuterol HCl (Xopenex) 1.25 mg IH [id number] PRN PRN Reason: Shortness of Breath Lorazepam (Ativan) 2 mg IVP Q6H PRN; Protocol PRN Reason: Symptoms of alcohol withdrawl Last Admin: 04/12/18 21:57 Dose: 2 mg Metoprolol Tartrate (Lopressor) 50 mg PO Q12 [facility] Last Admin: 04/12/18 21:32 Dose: 50 mg Oxycodone/Acetaminophen (Percocet 5/325 Mg Tab) 1 tab PO Q6H PRN PRN Reason: Pain, moderate (4-7) Stop: 04/15/18 15:53 Last Admin: 04/13/18 06:38 Dose: 1 tab Pantoprazole Sodium (Protonix Ec Tab) 40 mg PO ACB [facility] Last Admin: 04/12/18 16:24 Dose: 40 mg Potassium Chloride (K-Dur 20 Meq Er Tab) 20 meq PO BRK [facility] Last Admin: 04/12/18 17:27 Dose: 20 meq Results - Vital Signs Recent Vital Signs: Last Vital Signs Temp 97.8 F 04/13/18 06:00 Pulse 80 04/13/18 06:00 Resp 20 04/13/18 06:00 BP 125/70 04/13/18 06:00 Pulse Ox 97 04/12/18 16:04 - Labs Result Diagrams: 04/13/18 06:30 04/13/18 06:30 Labs: Laboratory Results - last 24 hr 04/12/18 04/12/18 04/12/18 15:42 15:44 15:55 WBC RBC Hgb Hct MCV MCH MCHC RDW Plt Count MPV Gran % Lymph % (Auto) Turner % (Auto) Eos % (Auto) Baso % (Auto) Gran # Lymph # (Auto) Turner # (Auto) Eos # (Auto) Baso # (Auto) ESR pO2 VBG pH VBG pCO2 VBG HCO3 VBG Total CO2 VBG O2 Sat (Calc) VBG Base Excess VBG Potassium Glucose Lactate FiO2 Sodium Potassium Chloride Carbon Dioxide Anion Gap BUN Creatinine Est GFR ( Amer) Est GFR (Non-Af Amer) POC Glucose (mg/dL) > 500 H* > 500 H* Random Glucose Hemoglobin A1c 13.9 H D Serum Osmolality Calcium Phosphorus Magnesium Total Bilirubin AST ALT Alkaline Phosphatase Ammonia Troponin I C-Reactive Protein Total Protein Albumin Globulin Albumin/Globulin Ratio Triglycerides Cholesterol LDL Cholesterol Direct HDL Cholesterol Procalcitonin TSH 3rd Generation Venous Blood Potassium Urine Osmolality Ur Random Creatinine Ur Random Sodium Ur Random Urea Nitrogn Urine Opiates Screen Urine Methadone Screen Ur Barbiturates Screen Ur Phencyclidine Scrn Ur Amphetamines Screen U Benzodiazepines Scrn U Oth Cocaine Metabols U Cannabinoids Screen 04/12/18 04/12/18 04/12/18 15:55 16:00 16:00 WBC RBC Hgb Hct MCV MCH MCHC RDW Plt Count MPV Gran % Lymph % (Auto) Turner % (Auto) Eos % (Auto) Baso % (Auto) Gran # Lymph # (Auto) Turner # (Auto) Eos # (Auto) Baso # (Auto) ESR 43 H pO2 VBG pH VBG pCO2 VBG HCO3 VBG Total CO2 VBG O2 Sat (Calc) VBG Base Excess VBG Potassium Glucose Lactate FiO2 Sodium Potassium Chloride Carbon Dioxide Anion Gap BUN Creatinine Est GFR ( Amer) Est GFR (Non-Af Amer) POC Glucose (mg/dL) Random Glucose Hemoglobin A1c Serum Osmolality Calcium Phosphorus Magnesium Total Bilirubin AST ALT Alkaline Phosphatase Ammonia < 9 L Troponin I C-Reactive Protein Total Protein Albumin Globulin Albumin/Globulin Ratio Triglycerides Cholesterol LDL Cholesterol Direct HDL Cholesterol Procalcitonin 0.13 L TSH 3rd Generation Venous Blood Potassium Urine Osmolality Ur Random Creatinine Ur Random Sodium Ur Random Urea Nitrogn Urine Opiates Screen Urine Methadone Screen Ur Barbiturates Screen Ur Phencyclidine Scrn Ur Amphetamines Screen U Benzodiazepines Scrn U Oth Cocaine Metabols U Cannabinoids Screen 04/12/18 04/12/18 04/12/18 16:00 18:08 18:30 WBC RBC Hgb Hct MCV MCH MCHC RDW Plt Count MPV Gran % Lymph % (Auto) Turner % (Auto) Eos % (Auto) Baso % (Auto) Gran # Lymph # (Auto) Turner # (Auto) Eos # (Auto) Baso # (Auto) ESR pO2 VBG pH VBG pCO2 VBG HCO3 VBG Total CO2 VBG O2 Sat (Calc) VBG Base Excess VBG Potassium Glucose Lactate FiO2 Sodium Potassium Chloride Carbon Dioxide Anion Gap BUN Creatinine Est GFR ( Amer) Est GFR (Non-Af Amer) POC Glucose (mg/dL) > 500 H* Random Glucose Hemoglobin A1c Serum Osmolality Calcium Phosphorus Magnesium Total Bilirubin AST ALT Alkaline Phosphatase Ammonia Troponin I C-Reactive Protein 35.00 H Total Protein Albumin Globulin Albumin/Globulin Ratio Triglycerides Cholesterol LDL Cholesterol Direct HDL Cholesterol Procalcitonin TSH 3rd Generation Venous Blood Potassium Urine Osmolality 357 Ur Random Creatinine Ur Random Sodium 48 Ur Random Urea Nitrogn Urine Opiates Screen Urine Methadone Screen Ur Barbiturates Screen Ur Phencyclidine Scrn Ur Amphetamines Screen U Benzodiazepines Scrn U Oth Cocaine Metabols U Cannabinoids Screen 04/12/18 04/12/18 04/12/18 18:30 18:30 21:14 WBC RBC Hgb Hct MCV MCH MCHC RDW Plt Count MPV Gran % Lymph % (Auto) Turner % (Auto) Eos % (Auto) Baso % (Auto) Gran # Lymph # (Auto) Turner # (Auto) Eos # (Auto) Baso # (Auto) ESR pO2 VBG pH VBG pCO2 VBG HCO3 VBG Total CO2 VBG O2 Sat (Calc) VBG Base Excess VBG Potassium Glucose Lactate FiO2 Sodium Potassium Chloride Carbon Dioxide Anion Gap BUN Creatinine Est GFR ( Amer) Est GFR (Non-Af Amer) POC Glucose (mg/dL) 494 H* Random Glucose Hemoglobin A1c Serum Osmolality Calcium Phosphorus Magnesium Total Bilirubin AST ALT Alkaline Phosphatase Ammonia Troponin I C-Reactive Protein Total Protein Albumin Globulin Albumin/Globulin Ratio Triglycerides Cholesterol LDL Cholesterol Direct HDL Cholesterol Procalcitonin TSH 3rd Generation Venous Blood Potassium Urine Osmolality Ur Random Creatinine 21 Ur Random Sodium Ur Random Urea Nitrogn 195 Urine Opiates Screen Positive H Urine Methadone Screen Negative Ur Barbiturates Screen Negative Ur Phencyclidine Scrn Negative Ur Amphetamines Screen Negative U Benzodiazepines Scrn Negative U Oth Cocaine Metabols Negative U Cannabinoids Screen Negative 04/12/18 04/12/18 04/12/18 21:16 21:16 22:05 WBC RBC Hgb Hct MCV MCH MCHC RDW Plt Count MPV Gran % Lymph % (Auto) Turner % (Auto) Eos % (Auto) Baso % (Auto) Gran # Lymph # (Auto) Turner # (Auto) Eos # (Auto) Baso # (Auto) ESR pO2 29 L VBG pH 7.35 VBG pCO2 49.0 VBG HCO3 27.1 VBG Total CO2 28.6 H VBG O2 Sat (Calc) 59.8 VBG Base Excess 0.8 VBG Potassium 4.3 Glucose 471 H* D Lactate 2.2 H FiO2 21.0 Sodium 126 L 124.0 L Potassium 5.0 Chloride 84 L 85.0 L Carbon Dioxide 27 Anion Gap 20 BUN 50 H Creatinine 2.0 H Est GFR ( Amer) 41 Est GFR (Non-Af Amer) 34 POC Glucose (mg/dL) Random Glucose 514 H* Hemoglobin A1c Serum Osmolality Calcium 9.6 Phosphorus Magnesium 2.4 H Total Bilirubin 0.9 AST 31 ALT 26 Alkaline Phosphatase 86 Ammonia Troponin I < 0.01 C-Reactive Protein Total Protein 7.8 Albumin 4.1 Globulin 3.7 Albumin/Globulin Ratio 1.1 Triglycerides Cholesterol LDL Cholesterol Direct HDL Cholesterol Procalcitonin TSH 3rd Generation Venous Blood Potassium 4.3 Urine Osmolality Ur Random Creatinine Ur Random Sodium Ur Random Urea Nitrogn Urine Opiates Screen Urine Methadone Screen Ur Barbiturates Screen Ur Phencyclidine Scrn Ur Amphetamines Screen U Benzodiazepines Scrn U Oth Cocaine Metabols U Cannabinoids Screen 04/12/18 04/13/18 04/13/18 23:11 01:40 02:42 WBC RBC Hgb Hct MCV MCH MCHC RDW Plt Count MPV Gran % Lymph % (Auto) Turner % (Auto) Eos % (Auto) Baso % (Auto) Gran # Lymph # (Auto) Turner # (Auto) Eos # (Auto) Baso # (Auto) ESR pO2 26 L VBG pH 7.32 VBG pCO2 55.0 VBG HCO3 28.3 H VBG Total CO2 30.0 H VBG O2 Sat (Calc) 51.6 VBG Base Excess 1.1 VBG Potassium 4.2 Glucose 450 H* Lactate 1.9 FiO2 21.0 Sodium 125.0 L Potassium Chloride 88.0 L Carbon Dioxide Anion Gap BUN Creatinine Est GFR ( Amer) Est GFR (Non-Af Amer) POC Glucose (mg/dL) 474 H* 439 H* Random Glucose Hemoglobin A1c Serum Osmolality Calcium Phosphorus Magnesium Total Bilirubin AST ALT Alkaline Phosphatase Ammonia Troponin I C-Reactive Protein Total Protein Albumin Globulin Albumin/Globulin Ratio Triglycerides Cholesterol LDL Cholesterol Direct HDL Cholesterol Procalcitonin TSH 3rd Generation Venous Blood Potassium 4.2 Urine Osmolality Ur Random Creatinine Ur Random Sodium Ur Random Urea Nitrogn Urine Opiates Screen Urine Methadone Screen Ur Barbiturates Screen Ur Phencyclidine Scrn Ur Amphetamines Screen U Benzodiazepines Scrn U Oth Cocaine Metabols U Cannabinoids Screen 04/13/18 04/13/18 04/13/18 06:30 06:30 06:30 WBC 7.1 D RBC 4.03 Hgb 12.2 L Hct 36.0 L MCV 89.3 MCH 30.3 MCHC 33.9 RDW 14.1 Plt Count 323 MPV 9.8 Gran % 61.5 Lymph % (Auto) 24.5 Turner % (Auto) 9.1 H Eos % (Auto) 3.8 Baso % (Auto) 1.1 Gran # 4.38 Lymph # (Auto) 1.8 Turner # (Auto) 0.7 H Eos # (Auto) 0.3 Baso # (Auto) 0.08 ESR pO2 VBG pH VBG pCO2 VBG HCO3 VBG Total CO2 VBG O2 Sat (Calc) VBG Base Excess VBG Potassium Glucose Lactate FiO2 Sodium 130 L Potassium 3.7 Chloride 88 L Carbon Dioxide 30 Anion Gap 15 BUN 44 H Creatinine 1.8 H Est GFR ( Amer) 47 Est GFR (Non-Af Amer) 39 POC Glucose (mg/dL) Random Glucose 395 H* D Hemoglobin A1c Serum Osmolality 299 Calcium 8.7 Phosphorus 3.1 Magnesium 2.4 H Total Bilirubin 0.7 AST 31 ALT 30 Alkaline Phosphatase 71 Ammonia Troponin I < 0.01 C-Reactive Protein Total Protein 6.9 Albumin 3.4 Globulin 3.5 Albumin/Globulin Ratio 1.0 L Triglycerides 130 Cholesterol 144 LDL Cholesterol Direct 99 HDL Cholesterol 23 L Procalcitonin TSH 3rd Generation 2.67 Venous Blood Potassium Urine Osmolality Ur Random Creatinine Ur Random Sodium Ur Random Urea Nitrogn Urine Opiates Screen Urine Methadone Screen Ur Barbiturates Screen Ur Phencyclidine Scrn Ur Amphetamines Screen U Benzodiazepines Scrn U Oth Cocaine Metabols U Cannabinoids Screen 04/13/18 04/13/18 06:34 07:34 WBC RBC Hgb Hct MCV MCH MCHC RDW Plt Count MPV Gran % Lymph % (Auto) Turner % (Auto) Eos % (Auto) Baso % (Auto) Gran # Lymph # (Auto) Turner # (Auto) Eos # (Auto) Baso # (Auto) ESR pO2 VBG pH VBG pCO2 VBG HCO3 VBG Total CO2 VBG O2 Sat (Calc) VBG Base Excess VBG Potassium Glucose Lactate FiO2 Sodium Potassium Chloride Carbon Dioxide Anion Gap BUN Creatinine Est GFR ( Amer) Est GFR (Non-Af Amer) POC Glucose (mg/dL) 379 H 376 H Random Glucose Hemoglobin A1c Serum Osmolality Calcium Phosphorus Magnesium Total Bilirubin AST ALT Alkaline Phosphatase Ammonia Troponin I C-Reactive Protein Total Protein Albumin Globulin Albumin/Globulin Ratio Triglycerides Cholesterol LDL Cholesterol Direct HDL Cholesterol Procalcitonin TSH 3rd Generation Venous Blood Potassium Urine Osmolality Ur Random Creatinine Ur Random Sodium Ur Random Urea Nitrogn Urine Opiates Screen Urine Methadone Screen Ur Barbiturates Screen Ur Phencyclidine Scrn Ur Amphetamines Screen U Benzodiazepines Scrn U Oth Cocaine Metabols U Cannabinoids Screen Assessment & Plan - Assessment and Plan (Free Text) Assessment: CT head: normal, no stroke, no hemorrhage. is a 58 yr old male who had a prolonged spell of confusion that is most likely secondary to his blood sugar and hyponatremia. I am not confident that this is a seizure, however i would recommend that we obtain an MRI brain without contrast,and EEG. Thank you for consulting us. Dr. heller
--- NOTE | 2018-04-13 12:57 | CARD ---
APPROVED REPORT Date of service: 04/12/2018 EKG Measurement Heart [id number] <Conclusion> Atrial fibrillation with rapid ventricular response Abnormal ECG
[2018-04-13] MEDS: Insulin Lispro 1 UNITS/0.01 ML SC SCH ×2 (13:09→16:24)
--- NOTE | 2018-04-13 13:43 | CP.PCM.CON ---
History of Present Illness - History of Present Illness History of Present Illness: Nephrology Consultation Note: Assessment: Stable Acute Kidney Injury (N17.9) likely due to pre-renal state due to hyperglycemia, osmotic diuresis and oral loop + thiazide diuretics psuedohyponatremia due to hyperglycemia due to uncontrolled DM Diabetic chronic Kidney Disease (E11.22) Hypertensive Chronic Kidney Disease (I12.9) Chronic Kidney Disease (N18.3) Stage 3 with ? mg proteinuria (R80.9) likely due to DM/HTN A fib on pradaxa, morbid obesity, JOSELINE, CAD, chronic leg edema chronic respi acidosis with renal compensation Plan No acute need for renal replacement therapy at this time. Hypertension control with meds as ordered. Maintain hemodynamics stable. Avoid hypotension. Patient not on ACEI/ARB due to recent MADELYN Monitor Input/Output, daily weights and renal function with basic metabolic panel hold diuretics and continue with IVF for now, until glycemic control and renal function better endocrine, neuro and cardiology following Check urine analysis, spot protein/creatinine, albumin/creatinine ratio renal and bladder sonogram Check HIV/Hep B and Hep C serology Check for 25-OH vitamin D, iPTH, phosphorus level. Dose meds/antibiotics for reduced GFR. Avoid fleets enema/magnesium based laxatives. Avoid nephrotoxins/NSAIDs/ iodinated contrast (unless needed emergently) Glycemic control Further work up/management as per primary team Thanks for allowing me to participate in care of your patient. Will follow patient with you. Please call if any Qs. had d/w team Dr Jama Mcwilliams Office: [phone] Chief Complaint; high sugar Reason for consult: Acute Kidney Injury HPI: Pt is a 58 M with hx of diabetes Mellitus (few years), hypertension (years) , A fib on pradaxa, morbid obesity, JOSELINE, CAD, chronic leg edema presented with complaints of confusion and high sugars. renal consult for hyponatremia and Madelyn management. pt also has CKD with baseline cr 1.2-1.4 mg/dL. Denies OTC/herbal meds or NSAIDs No recent iodinated contrast exposure. No obvious episodes of low BP. feels better now ROS: Cardiovascular: No chest pain. Pulmonary: has shortness of breath as per pt Gastrointestinal: denies abdominal pain No nausea. No vomiting. Genitourinary: No pain while urinating. Denies blood in urine. All other negative except as mentioned in HPI Physical Examination: General Appearance: Comfortable, in no acute respiratory distress, co-operative . obese Vitals reviewed and noted as below Head; Atraumatic, normocephalic ENT: no ulcers no thrush. Tongue is midline. Oropharynx: no rash or ulcers. EYES: Pupils are equal, round and reactive to light accommodation. Eye muscles and extraocular movement intact. Sclera is anicteric. Neck; supple no lymphadenopathy, no thyromegaly or bruit Lungs: Normal respiratory rate/effort. Breath sounds bilateral equal and clear Heart: Normal rate. s1s2 normal. No rub or gallop. Extremities: chronic edema with compressive bandages Neurological: Patient is alert, awake and oriented to person, place and time. No focal deficit. Strength bilateral appropriate and equal Skin: Warm and dry. Normal turgor. No rash. Palpitation: Normal elasticity for age Abdomen: Abdomen is soft. Bowel sounds +. There is no abdominal tenderness, no guarding/rigidity no organomegaly Psych: limited insight and normal affect/mood MSK: no joint tenderness or swelling. Digits and nails normal, no deformity : kidney or bladder not palpable Labs/imaging reviewed. Past medical history, past surgical history, family history, social history, allergy reviewed and noted as below Family hx: no hx of CKD. Rest non-contributory work up: ABG 7.32 pCo2: 55 urine Na 48 osmol 357 UA SG <1.005 A1c 14% Past Patient History - Infectious Disease Hx of Infectious Diseases: None - Tetanus Immunizations Tetanus Immunization: Unknown - Past Social History Smoking Status: Former Smoker Alcohol: > 2 Drinks/Day - CARDIAC Hx Cardiac Disorders: Yes (paroxysmal AFib, CAD) Hx Congestive Heart Failure: Yes Hx Hypertension: Yes - PULMONARY Hx Respiratory Disorders: Yes Hx Sleep Apnea: Yes - NEUROLOGICAL Hx Neurological Disorder: Yes Other/Comment: tremors - HEENT Hx HEENT Problems: Yes Other/Comment: glasses - RENAL Hx Renal Failure: Yes (ARF 11/2014) - ENDOCRINE/METABOLIC Hx Diabetes Mellitus Type 2: Yes - HEMATOLOGICAL/ONCOLOGICAL Hx Blood Disorders: No - INTEGUMENTARY Hx Dermatological Problems: No Other/Comment: cellulitis on sudhir lower ext. Chronic venous insufficiency ( previous triage) - MUSCULOSKELETAL/RHEUMATOLOGICAL Hx Falls: No - GASTROINTESTINAL Hx Gastroesophageal Reflux: Yes - GENITOURINARY/GYNECOLOGICAL Hx Genitourinary Disorders: No - PSYCHIATRIC Hx Psychophysiologic Disorder: Yes Hx Anxiety: Yes Hx Substance Use: No - SURGICAL HISTORY Hx Appendectomy: Yes Hx Cardiac Catheterization: Yes (04/2014) Hx Coronary Stent: Yes - ANESTHESIA Hx Anesthesia: Yes Hx Anesthesia Reactions: No Hx Malignant Hyperthermia: No Meds Allergies/Adverse Reactions: Allergies Allergy/AdvReac Type Severity Reaction Status Date / Time meropenem [From Merrem] AdvReac PAIN Verified 04/12/18 18:25 - Medications Medications: Current Medications Aspirin (Aspirin Chewable) 81 mg PO DAILY [facility] Last Admin: 04/13/18 10:13 Dose: 81 mg Dabigatran (Pradaxa) 150 mg PO Q12 SHAHEED PRN Reason: Protocol Last Admin: 04/13/18 10:13 Dose: 150 mg Dextrose (Dextrose 50% Inj) 0 ml IV STAT PRN; Protocol PRN Reason: Hypoglycemia Protocol Diltiazem HCl (Cardizem Cd) 240 mg PO DAILY [facility] Last Admin: 04/13/18 10:13 Dose: 240 mg Furosemide (Lasix) 40 mg PO 0600,1800 [facility] Last Admin: 04/13/18 05:49 Dose: 40 mg Dextrose (Dextrose 5% In Water 1000 Ml) 1,000 mls @ 0 mls/hr IV .Q0M PRN; Protocol; Per Protocol PRN Reason: Hypoglycemia Protocol Insulin Detemir (Levemir) 30 unit SC HS [facility] Insulin Human Lispro (Humalog Med) 0 units SC ACHS [facility] PRN Reason: Protocol Last Admin: 04/13/18 13:07 Dose: 10 units Insulin Human Lispro (Humalog) 18 units SC AC [facility] Last Admin: 04/13/18 13:09 Dose: 18 unit Levalbuterol HCl (Xopenex) 1.25 mg IH [id number] PRN PRN Reason: Shortness of Breath Lorazepam (Ativan) 2 mg IVP Q6H PRN; Protocol PRN Reason: Symptoms of alcohol withdrawl Last Admin: 04/12/18 21:57 Dose: 2 mg Metoprolol Tartrate (Lopressor) 50 mg PO Q12 [facility] Last Admin: 04/13/18 10:14 Dose: 50 mg Oxycodone/Acetaminophen (Percocet 5/325 Mg Tab) 1 tab PO Q6H PRN PRN Reason: Pain, moderate (4-7) Stop: 04/15/18 15:53 Last Admin: 04/13/18 06:38 Dose: 1 tab Pantoprazole Sodium (Protonix Ec Tab) 40 mg PO ACB SHAHEED Last Admin: 04/13/18 10:13 Dose: 40 mg Potassium Chloride (K-Dur 20 Meq Er Tab) 20 meq PO BRK SHAHEED Last Admin: 04/13/18 10:14 Dose: 20 meq Results - Vital Signs Recent Vital Signs: Last Vital Signs Temp 97.8 F 04/13/18 06:00 Pulse 88 04/13/18 10:14 Resp 20 04/13/18 06:00 BP 124/59 L 04/13/18 10:14 Pulse Ox 97 04/12/18 16:04 - Labs Result Diagrams: 04/13/18 06:30 04/13/18 06:30
--- NOTE | 2018-04-13 14:12 | US ---
Date of service: 04/13/2018 PROCEDURE: Ultrasound of the Kidneys HISTORY: MADELYN COMPARISON: None available. TECHNIQUE: Grayscale imaging was performed. Examination is technically limited due to patient body habitus. FINDINGS: RIGHT KIDNEY: Measures: 9.1 cm. Normal in size, contour and echogenicity. No stone, solid mass lesion or hydronephrosis visualized. LEFT KIDNEY: Measures: 10.2 cm. Normal in size, contour and echogenicity. No stone, solid mass lesion or hydronephrosis visualized. OTHER FINDINGS: None. IMPRESSION: Technically limited examination due to patient body habitus. Allowing for this, no hydronephrosis or nephrolithiasis.
--- NOTE | 2018-04-13 14:20 | PN ---
Copied To: Chelsea Salvador MD Attending MD: Chelsea Salvador MD DATE: 04/13/2018 ENDOCRINOLOGY FOLLOWUP NOTE LOCATION: Room 261. SUBJECTIVE: This is a 58-year-old male with recent uncontrolled type 2 insulin-requiring diabetes, presenting here with progressively worsening dizziness and lightheadedness and currently undergoing neurological workup and also was found to have marked hyperglycemic accelerations as noted thereof. His oral intake is variable but improved as per the nursing staff. His glycemic levels are still fluctuating as noted overnight and have ranged from 376 to 379 mg/dL. His latest chemistry showed a BUN of 44, sodium 130, potassium 3.7, chloride 88, CO2 of 30, glucose 395, and creatinine 1.8. His TSH is 2.67. ASSESSMENT: This is a 58-year-old male with uncontrolled and decompensated type 2 insulin-requiring diabetes with marked hyperglycemic accelerations, previously on oral hypoglycemic therapy as noted. He also has diabetic microvascular complications of retinopathy, polyneuropathy, and nephropathy with diabetic macrovascular complications of coronary artery disease and underlying peripheral arterial disease and vasculopathy. He also has cardiac tachyarrhythmias, on oral anticoagulation therapy as given. PLAN OF MANAGEMENT: We will modify once again his basal and bolus insulin regimen and increase the Levemir to 30 units subcu at bedtime daily to start tonight. We will also increase his Humalog to 18 units subcu t.i.d. to start at noontime today as ordered. We will continue the modified coverage scale using a very low-dose Humalog insulin to obviate hypoglycemia and detailed orders have been given. We will obtain serial chemistries and supplement accordingly as needed. We will follow and advise accordingly. Chelsea Salvador MD
--- NOTE | 2018-04-13 15:48 | CON ---
Copied To: Erik Alexander MD Attending MD: Erik Alexander MD DATE: 04/13/2018 LOCATION: The patient is seen earlier in room 261, bed 2. CHIEF COMPLAINT: Weakness x several days. HISTORY OF PRESENT ILLNESS: This is a 58-year-old male with morbid obesity with BMI of 43, with a history of diabetes mellitus, diabetic neuropathy, atrial fibrillation, coronary artery disease, chronic lower extremity venous stasis, obstructive sleep apnea. He was admitted because of shortness of breath and weakness. The patient denies any fevers, any chills, any nausea, any vomiting. No headaches or blurred vision. REVIEW OF SYSTEMS: A 12-point review systems performed. PAST MEDICAL HISTORY: Significant for diabetes, morbid obesity, diabetic neuropathy, hypertension, chronic obstructive lung disease, atrial fibrillation, anxiety, coronary artery disease. PAST SURGICAL HISTORY: Significant for appendectomy, cardiac cath. ALLERGIES: THE PATIENT HAS ALLERGY TO MEROPENEM. HE FELT THAT HE STARTED ITCHING WHEN I GAVE HIM MEROPENEM, CURRENTLY DOING WELL. MEDICATIONS AT HOME: Reviewed, include Cardizem, Aldactone, Januvia, Protonix, Lasix, inhaler. PHYSICAL EXAMINATION: VITAL SIGNS: On exam, the patient is in bed with a temperature of 98, heart rate of 81, it was up to 124. Respiratory rate of 20, it was up to 26; with a blood pressure of 121/70, it was up to 153/69. The patient's O2 saturation is at 97% and the patient's BMI is 43.4. HEENT: Examination of HEENT is unremarkable. NECK: Supple. LUNGS: Have decreased breath sounds. HEART: Normal S1, S2. ABDOMEN: Soft, nontender. No rebound or guarding. LABORATORY DATA: Laboratory examination reveals a white count of 7.1, hemoglobin of 12, platelets of 323. Coagulation is noted and chemistries reveals a BUN of 44, creatinine is 1.8.. It was 1.2 in January. Glucose is 395. The patient's procalcitonin is 0.13 and troponins are negative. The BNP is 890 and the patient has had an echo in 12/2016 with an ejection fraction of 55%, with moderate left ventricular hypertrophy and mildly dilated left ventricle. Urinalysis is unremarkable, 0 to 2 wbc's. Has glucose in the urine and negative protein. Microbiology from previous admissions reveals right foot cultures, Proteus and Enterococcus. Another right foot culture has Klebsiella and MRSA. Ankle culture has Klebsiella and MRSA. At this time, the patient refused to have dressings from his legs taken off. He wants Dr. Meadows to do that, unable to assess that. Unable to open Angeline Humphrey's consultation, unable to see her consultation. Consultation by Dr. Chelsea Salvador is noted and reviewed and the patient had a chest x-ray. The lungs are well aerated. A CAT scan of the head, no acute findings. ASSESSMENT AND PLAN: A 58-year-old male with morbid obesity, body mass index of 43 with diabetes mellitus, diabetic neuropathy, coronary artery disease, congestive heart failure, diastolic with chronic obstructive lung disease, anxiety, and chronic lower extremity venous stasis and obstructive sleep apnea and atrial fibrillation, now presenting with tachycardia with systemic inflammatory response syndrome with acute kidney injury and acute diastolic congestive heart failure on top of chronic congestive heart failure with bilateral lower extremity ulcers. As per the patient, he states that legs have improved and not infected, just local wound care and waiting for Podiatry to examine the patient's lower extremity and their description of the examination. Currently, the patient's urine culture is pending and we will order blood cultures and currently also, the patient is off of antibiotics. MRI of the brain is ordered and Doppler of lower extremity. We will give one dose of vancomycin pending culture results and we will make further recommendations pending initial workup results and blood cultures and urine culture results and Podiatry's description of the lower extremities. Erik Alexander MD
--- NOTE | 2018-04-13 16:08 | CP.PCM.PN ---
<Fernando Kwok - Last Filed: 04/13/18 15:29> Subjective - Date & Time of Evaluation Date of Evaluation: 04/13/18 Time of Evaluation: 15:30 - Subjective Subjective: Fernando Kwok DO PGY1 - Internal Medicine Director [employer] - Hospital Progress Note Patient was seen and examined at bedside this AM on tele floor. Slept well overnight however yesterday evening had complaints of muscle cramp like sensation 2/2 IV ABX (Merem). 12 system ROS is otherwise negative this AM. Objective - Vital Signs/Intake and Output Vital Signs (last 24 hours): Temp Pulse Resp BP Pulse Ox 98.5 F 75 19 124/59 L 97 04/13/18 12:00 04/13/18 14:00 04/13/18 12:00 04/13/18 10:14 04/12/18 16:04 - Medications Medications: Current Medications Aspirin (Aspirin Chewable) 81 mg PO DAILY [facility] Last Admin: 04/13/18 10:13 Dose: 81 mg Dabigatran (Pradaxa) 150 mg PO Q12 [facility] PRN Reason: Protocol Last Admin: 04/13/18 10:13 Dose: 150 mg Dextrose (Dextrose 50% Inj) 0 ml IV STAT PRN; Protocol PRN Reason: Hypoglycemia Protocol Diltiazem HCl (Cardizem Cd) 240 mg PO DAILY [facility] Last Admin: 04/13/18 10:13 Dose: 240 mg Furosemide (Lasix) 40 mg PO 0600,1800 [facility] Last Admin: 04/13/18 05:49 Dose: 40 mg Dextrose (Dextrose 5% In Water 1000 Ml) 1,000 mls @ 0 mls/hr IV .Q0M PRN; Protocol; Per Protocol PRN Reason: Hypoglycemia Protocol Insulin Detemir (Levemir) 30 unit SC HS [facility] Insulin Human Lispro (Humalog Med) 0 units SC ACHS [facility] PRN Reason: Protocol Last Admin: 04/13/18 13:07 Dose: 10 units Insulin Human Lispro (Humalog) 18 units SC AC [facility] Last Admin: 04/13/18 13:09 Dose: 18 unit Levalbuterol HCl (Xopenex) 1.25 mg IH [id number] PRN PRN Reason: Shortness of Breath Lorazepam (Ativan) 2 mg IVP Q6H PRN; Protocol PRN Reason: Symptoms of alcohol withdrawl Last Admin: 04/12/18 21:57 Dose: 2 mg Metoprolol Tartrate (Lopressor) 50 mg PO Q12 [facility] Last Admin: 04/13/18 10:14 Dose: 50 mg Oxycodone/Acetaminophen (Percocet 5/325 Mg Tab) 1 tab PO Q6H PRN PRN Reason: Pain, moderate (4-7) Stop: 04/15/18 15:53 Last Admin: 04/13/18 14:24 Dose: 1 tab Pantoprazole Sodium (Protonix Ec Tab) 40 mg PO ACB [facility] Last Admin: 04/13/18 10:13 Dose: 40 mg Potassium Chloride (K-Dur 20 Meq Er Tab) 20 meq PO BRK [facility] Last Admin: 04/13/18 10:14 Dose: 20 meq - Labs Labs: PT 20.4 SECONDS (9.4-12.5) H 04/12/18 13:00 INR 1.75 04/12/18 13:00 APTT 65.7 Seconds (25.1-36.5) H 04/12/18 13:00 Physical Exam - Constitutional Appears: Non-toxic, Older Than Stated Age - Head Exam Head Exam: ATRAUMATIC, NORMOCEPHALIC - Eye Exam Eye Exam: EOMI, PERRL. absent: Conjunctival injection, Nystagmus, Scleral icterus Pupil Exam: NORMAL ACCOMODATION, PERRL. absent: Irregular, Miosis, Mydriatic, Unequal - ENT Exam ENT Exam: Mucous Membranes Moist - Neck Exam Neck exam: Positive for: Full Rom - Respiratory Exam Respiratory Exam: Decreased Breath Sounds, NORMAL BREATHING PATTERN. absent: Accessory Muscle Use, Chest Wall Tenderness, Rales, Rhonchi, Wheezes, Respiratory Distress - Cardiovascular Exam Cardiovascular Exam: Tachycardia, Irregular Rhythm - GI/Abdominal Exam GI & Abdominal Exam: Normal Bowel Sounds, Soft. absent: Firm, Guarding, Mass, Rebound, Rigid, Tenderness Additional comments: morbidly obese male, rounded abdomen - Extremities Exam Additional comments: Dressings were not removed; please follow up with podiatry note as patient will not allow hospital team to examine mild LE swelling, covered in dressing - Back Exam Back exam: NORMAL INSPECTION - Neurological Exam Neurological exam: Alert, Oriented x3 - Psychiatric Exam Psychiatric exam: Normal Affect, Normal Mood - Skin Skin Exam: Dry, Normal Color, Warm Assessment and Plan - Assessment and Plan (Free Text) Assessment: 58 year old male with PMH NIDDM, paroxysmal atrial fibrillation (on Pradaxa), non-obstructive coronary artery disease, chronic venous stasis ulcers, HTN, COPD and JOSELINE, presents for confusion/AMS, found to have hyperglycemia, MADELYN: AMS: 2/2 CVA vs TIA vs polypharmacy (multiple diuretic use) vs hyperglycemia - CT head negative for acute changes. Moderate chronic microangiopathic changes , mild age related global parenchymal loss. - On ASA, lipitor - Orthostatic vital signs - will hold home lasix, metalazone, aldactone. Cardiology consulted for appropriate medication regimen. - Hgb A1C. last A1C 6.7 on 07/2017. On ISS high. - Endocrinology consulted. F/u recs. - Corrected Na 137 - Seizure precautions - fall precautions - neuro checks - monitor - Neurology Following, Reccs brain MRI and EEG - No MRI w/ contrast 2/2 MADELYN below Bilateral feet ulcers: - Wound culture 04/07 reviewed: proteus mirabilis and enterococcus faecalis - Stopped Merrem due to reaction; - Started Vancomycin - B/l feet x rays. CRP, ESR. procal - wound culture - ID consulted. f/u recs - Podiatry consulted. F/u recs MADELYN: - Cr 1.8 (baseline 1.2-1.3) - received 500 ml NS bolus in ED - hx of diastolic chf - urine lytes ordered. - renal consulted. f/u recs - avoid nephrotoxic agents - WILL HOLD ALL DIURETICS AND ALLOW IVF UNTIL SUGARS IMPROVED - Nephrology Following Hx of afib: - EKG: Afib @ 111 bpm. Qtc 451 ms - c/w home cardizem, metoprolol, pradaxa - monitor w/ tele Hx of diastolic CHF: - BNP 890 (prev 2150) - Echo 12/2016: EF 55%. Mildly dilated LV. Mild to moderate concentric LVH. right ventricle moderately dilated. Systolic function of RV moderately reduced. trace to mild AR. Dilated IVC. - MUGA 12/2016 scan showed EF 64%. - CXR persistent moderate cardiomegaly. neg for infiltrates - given lasix 40 mg IV in ED. - on home lasix 40 mg PO BID - c/w home metoprolol. hold home aldactone, metalazone - cardiology consulted. f/u recs Hx of COPD: - duoneb inhaler Hx of DM: - Hgb A1c - ISS high - Levemir 30HS - 18U AC - Endocrinology Following; Appreciate Reccs PPX: protonix, pradaxa DISPO: Patient will require inpatient management for hyperglycemia, feet ulcers w/ + Cx, and MADELYN Patient examined, seen, and discussed with Dr Garcia. Fernando Kwok DO PGY1 Internal Medicine Director [employer] <Cora Garcia - Last Filed: 04/13/18 16:49> Objective - Vital Signs/Intake and Output Vital Signs (last 24 hours): Temp Pulse Resp BP Pulse Ox 98.5 F 75 19 124/59 L 97 04/13/18 12:00 04/13/18 14:00 04/13/18 12:00 04/13/18 10:14 04/12/18 16:04 - Medications Medications: Current Medications Aspirin (Aspirin Chewable) 81 mg PO DAILY [facility] Last Admin: 04/13/18 10:13 Dose: 81 mg Dabigatran (Pradaxa) 150 mg PO Q12 [facility] PRN Reason: Protocol Last Admin: 04/13/18 10:13 Dose: 150 mg Dextrose (Dextrose 50% Inj) 0 ml IV STAT PRN; Protocol PRN Reason: Hypoglycemia Protocol Diltiazem HCl (Cardizem Cd) 240 mg PO DAILY [facility] Last Admin: 04/13/18 10:13 Dose: 240 mg Dextrose (Dextrose 5% In Water 1000 Ml) 1,000 mls @ 0 mls/hr IV .Q0M PRN; Protocol; Per Protocol PRN Reason: Hypoglycemia Protocol Insulin Detemir (Levemir) 30 unit SC HS [facility] Insulin Human Lispro (Humalog Med) 0 units SC ACHS [facility] PRN Reason: Protocol Last Admin: 04/13/18 16:24 Dose: 5 units Insulin Human Lispro (Humalog) 18 units SC AC [facility] Last Admin: 04/13/18 16:24 Dose: 18 unit Levalbuterol HCl (Xopenex) 1.25 mg IH [id number] PRN PRN Reason: Shortness of Breath Lorazepam (Ativan) 2 mg IVP Q6H PRN; Protocol PRN Reason: Symptoms of alcohol withdrawl Last Admin: 04/12/18 21:57 Dose: 2 mg Metoprolol Tartrate (Lopressor) 50 mg PO Q12 [facility] Last Admin: 04/13/18 10:14 Dose: 50 mg Oxycodone/Acetaminophen (Percocet 5/325 Mg Tab) 1 tab PO Q6H PRN PRN Reason: Pain, moderate (4-7) Stop: 04/15/18 15:53 Last Admin: 04/13/18 14:24 Dose: 1 tab Pantoprazole Sodium (Protonix Ec Tab) 40 mg PO ACB [facility] Last Admin: 04/13/18 10:13 Dose: 40 mg Potassium Chloride (K-Dur 20 Meq Er Tab) 20 meq PO BRK [facility] Last Admin: 04/13/18 10:14 Dose: 20 meq Pregabalin (Lyrica) 25 mg PO BID [facility] - Labs Labs: PT 20.4 SECONDS (9.4-12.5) H 04/12/18 13:00 INR 1.75 04/12/18 13:00 APTT 65.7 Seconds (25.1-36.5) H 04/12/18 13:00 Attending/Attestation - Attestation I have personally seen and examined this patient.: Yes I have fully participated in the care of the patient.: Yes I have reviewed all pertinent clinical information, including history, physical exam and plan: Yes Notes (Text): 04/13/18 16:44 58 year old male with past medical history of diabetes, afib on pradaxa, CAD, diastolic CHF, chronic venous stasis ulcers, hypertension, COPD and alcohol use who presented with chronic dyspnea, chronic leg swelling/ulcer and altered mental status. He was found to have hyperglycemia and MADELYN. CT head showed moderate chronic microangiopathic changes, mild age related global parenchymal loss; no acute changes. Neurology evaluation was appreciated who requested MRI brain and EEG. Patient's mental status has returned to baseline. Probnp mildly elevated (890). CXR shows moderate cardiomegaly. He received iv lasix in ER. Patient is not in acute CHF. Will hold diuretics given MADELYN. Cardiology is also following. He is on cardizem, metoprolol and pradaxa for afib. Nephrology is following for MADELYN. Diuretics are on hold for now. Continue with gentle diuresis. Continue with insulin ss, humalog and levemir for diabetes. A1c level is 13.9. Diabetic education referral requested. Endocrinology is following. Podiatry and ID evaluation requested for bilateral feet ulcerations. Xrays reviewed. ESR / CRP elevated. LE doppler ordered. Wound culture from 04/07 grew proteus mirabilis and enterococcus faecalis. He received meropenem yesterday to which he reports reaction (cramping). Will follow up with ID and podiatry recommendations. Counselled on alcohol cessation. Monitor for withdrawal symptoms. Cora Garcia MD Hospitalist.
[2018-04-13] MEDS ORDERED: Insulin Detemir 100 units/ml Vial (Levemir) SC SCH ×2 (22:00)
[2018-04-14] MEDS ORDERED: Insulin Regular 1 UNITS/0.01 ML ML SC ONE (02:18)
[2018-04-14] MEDS: Oxycodone/Acetaminophen 5/325 mg Tab PO PRN ×3 (02:39→22:20)
[2018-04-14 06:31] LABS: BASO # 0.09 K/mm3 (0.0-2.0); EOS # 0.3 (0.0-0.7); EOS % 2.9 % (1.5-5.0); GRAN # 6.46 (1.4-6.5); GRAN % 70.3 % (50.0-68.0); HEMOGLOBIN 13.3 g/dL (14.0-18.0); LYMPH # 1.7 (1.2-3.4); LYMPH % 18.5 % (22.0-35.0); MEAN CELL VOLUME 90.2 fl (80.0-105.0); MEAN CORPUSCULAR HEMOGLOBIN 31.1 pg (25.0-35.0); MEAN CORPUSCULAR HGB CONC 34.5 g/dl (31.0-37.0); MEAN PLATELET VOLUME 9.7 fl (7.0-11.0); MONO # 0.7 (0.1-0.6); MONO % 7.3 % (1.0-6.0); RBC 4.28 10^6/uL (3.5-6.1); RED CELL DISTRIBUTION WIDTH 14.1 % (11.5-14.5); WHITE BLOOD COUNT 9.2 10^3/ul (4.5-11.0)
[2018-04-14 06:45] LABS: ALBUMIN 3.7 g/dL (3.0-4.8); CALCIUM 8.7 mg/dL (8.4-10.5)
--- NOTE | 2018-04-14 06:54 | CP.PCM.PN ---
Subjective - Date & Time of Evaluation Date of Evaluation: 04/14/18 Time of Evaluation: 06:15 - Subjective Subjective: Lying in bed, denies shortness of breath,awake, feels better than yesterday Reason for consultation: Cardiac evaluation for shortness of breath when climbing the stairs,history of paroxysmal atrial fibrillation on Pradaxa, coronary artery disease with stents,COPD, NIDDM, JOSELINE, Seen and examined by me and Dr. Vargas Objective - Vital Signs/Intake and Output Vital Signs (last 24 hours): Temp Pulse Resp BP Pulse Ox 98.4 F 80 22 133/68 95 04/14/18 00:01 04/14/18 02:00 04/14/18 00:01 04/14/18 00:01 04/14/18 00:01 Intake and Output: 04/13/18 04/14/18 18:59 06:59 Intake Total 1210 720 Output Total 750 1575 Balance 460 -855 - Medications Medications: Current Medications Aspirin (Aspirin Chewable) 81 mg PO DAILY [facility] Last Admin: 04/13/18 10:13 Dose: 81 mg Dabigatran (Pradaxa) 150 mg PO Q12 [facility] PRN Reason: Protocol Last Admin: 04/13/18 21:48 Dose: 150 mg Dextrose (Dextrose 50% Inj) 0 ml IV STAT PRN; Protocol PRN Reason: Hypoglycemia Protocol Diltiazem HCl (Cardizem Cd) 240 mg PO DAILY [facility] Last Admin: 04/13/18 10:13 Dose: 240 mg Dextrose (Dextrose 5% In Water 1000 Ml) 1,000 mls @ 0 mls/hr IV .Q0M PRN; Protocol; Per Protocol PRN Reason: Hypoglycemia Protocol Insulin Detemir (Levemir) 40 unit SC HS [facility] Last Admin: 04/13/18 21:47 Dose: 40 units Insulin Human Lispro (Humalog Med) 0 units SC ACHS [facility] PRN Reason: Protocol Last Admin: 04/13/18 21:25 Dose: 3 units Insulin Human Lispro (Humalog) 20 units SC AC [facility] Levalbuterol HCl (Xopenex) 1.25 mg IH [id number] PRN PRN Reason: Shortness of Breath Lorazepam (Ativan) 2 mg IVP Q6H PRN; Protocol PRN Reason: Symptoms of alcohol withdrawl Last Admin: 04/12/18 21:57 Dose: 2 mg Metoprolol Tartrate (Lopressor) 50 mg PO Q12 [facility] Last Admin: 04/13/18 21:56 Dose: 50 mg Oxycodone/Acetaminophen (Percocet 5/325 Mg Tab) 1 tab PO Q6H PRN PRN Reason: Pain, moderate (4-7) Stop: 04/15/18 15:53 Last Admin: 04/14/18 02:39 Dose: 1 tab Pantoprazole Sodium (Protonix Ec Tab) 40 mg PO ACB [facility] Last Admin: 04/13/18 10:13 Dose: 40 mg Potassium Chloride (K-Dur 20 Meq Er Tab) 20 meq PO BRK [facility] Last Admin: 04/13/18 10:14 Dose: 20 meq Pregabalin (Lyrica) 25 mg PO BID [facility] Last Admin: 04/13/18 17:40 Dose: Not Given - Labs Labs: 04/14/18 05:30 PT 20.4 SECONDS (9.4-12.5) H 04/12/18 13:00 INR 1.75 04/12/18 13:00 APTT 65.7 Seconds (25.1-36.5) H 04/12/18 13:00 - Constitutional Appears: No Acute Distress - Eye Exam Eye Exam: Normal appearance - ENT Exam ENT Exam: Mucous Membranes Moist - Respiratory Exam Respiratory Exam: Decreased Breath Sounds, NORMAL BREATHING PATTERN - Cardiovascular Exam Cardiovascular Exam: Irregular Rhythm, +S1, +S2 Additional comments: Telemetry-Afib -70's - GI/Abdominal Exam GI & Abdominal Exam: Soft, Normal Bowel Sounds - Extremities Exam Additional comments: right foot dressing 2-3+ edema - Neurological Exam Neurological Exam: Alert, Awake, Oriented x3 - Psychiatric Exam Psychiatric exam: Normal Affect - Skin Skin Exam: Intact, Warm Assessment and Plan - Assessment and Plan (Free Text) Assessment: A 58 year old male morbidly obese, who came in to the ER due to not feeling well. Blood glucose in ER was 638.Uncontrolled blood glucose.Insulin given in ER. He claimed to have shortness of breath when climbing stairs. History of paroxysmal atrial fibrillation on Pradaxa,COPD,coronary artery disease with stents, non-insulin diabetes mellitus,obstructive sleep apnea,hypertension, chronic venous stasis on both legs, former smoker, drinks beer everyday.Denies shortness of breath lying in bed. Uncontrolled diabetes mellitus. Chest X ray normal,cardiomegaly.Exacerbation of COPD.12/17/16- ECHO-Mild to moderate concentric LV hyperthropy, LVEF 55%, Moderately dilated RV, Moderately reduced systolic RV, Moderate AR, Trace MR/TR.12/18/16- Muga scan-RV normal wall motion, LV normal, LVEF 64% Plan: Feeling better today than yesterday For repeat ECHO to evaluate LV function Heart rate and blood pressure controlled Continue IV fluids for hydration On ASA 81 mg daily,Lopressor 50 mg every 12 hours,Cardizem CD 240 mg daily, Pradaxa 150 mg every 12 hours for chronic atrial fibrillation, rate controlled Glucose control Followed up by Endocrine ID on consult Pulmonary and Renal on consult Continue current medications Continue current treatment Will follow up Plan and treatment discussed with Dr. Vargas
[2018-04-14] MEDS: Insulin Lispro 1 UNITS/0.01 ML SC SCH ×3 (08:30→16:51)
[2018-04-14] MEDS: Insulin Lispro (humaLOG) MEDIUM Coverage SC SCH ×2 (08:30→11:28)
--- NOTE | 2018-04-14 09:28 | CP.PCM.PN ---
Subjective - Date & Time of Evaluation Date of Evaluation: 04/14/18 Time of Evaluation: 09:17 - Subjective Subjective: Endocrinology progress note for Dr. Salvador's service - Irasema Quintero PGY3 Patient seen and examined at bedside this morning. Reported no acute overnight issues or new complaints. Discussed importance of strict glycemic control including outpatient follow up with his physicians. Otherwise, denies chest pain , palpitations, SOB. Objective - Vital Signs/Intake and Output Vital Signs (last 24 hours): Temp Pulse Resp BP Pulse Ox 98 F 78 22 126/72 97 04/14/18 08:32 04/14/18 08:32 04/14/18 08:32 04/14/18 08:32 04/14/18 08:32 Intake and Output: 04/14/18 04/14/18 06:59 18:59 Intake Total 1440 Output Total 2950 Balance -1510 - Medications Medications: Current Medications Aspirin (Aspirin Chewable) 81 mg PO DAILY [facility] Last Admin: 04/13/18 10:13 Dose: 81 mg Dabigatran (Pradaxa) 150 mg PO Q12 [facility] PRN Reason: Protocol Last Admin: 04/13/18 21:48 Dose: 150 mg Dextrose (Dextrose 50% Inj) 0 ml IV STAT PRN; Protocol PRN Reason: Hypoglycemia Protocol Diltiazem HCl (Cardizem Cd) 240 mg PO DAILY [facility] Last Admin: 04/13/18 10:13 Dose: 240 mg Dextrose (Dextrose 5% In Water 1000 Ml) 1,000 mls @ 0 mls/hr IV .Q0M PRN; Protocol; Per Protocol PRN Reason: Hypoglycemia Protocol Insulin Detemir (Levemir) 40 unit SC HS [facility] Last Admin: 04/13/18 21:47 Dose: 40 units Insulin Human Lispro (Humalog Med) 0 units SC ACHS [facility] PRN Reason: Protocol Last Admin: 04/13/18 21:25 Dose: 3 units Insulin Human Lispro (Humalog) 20 units SC AC [facility] Levalbuterol HCl (Xopenex) 1.25 mg IH [id number] PRN PRN Reason: Shortness of Breath Lorazepam (Ativan) 2 mg IVP Q6H PRN; Protocol PRN Reason: Symptoms of alcohol withdrawl Last Admin: 04/12/18 21:57 Dose: 2 mg Metoprolol Tartrate (Lopressor) 50 mg PO Q12 [facility] Last Admin: 04/13/18 21:56 Dose: 50 mg Oxycodone/Acetaminophen (Percocet 5/325 Mg Tab) 1 tab PO Q6H PRN PRN Reason: Pain, moderate (4-7) Stop: 04/15/18 15:53 Last Admin: 04/14/18 02:39 Dose: 1 tab Pantoprazole Sodium (Protonix Ec Tab) 40 mg PO ACB [facility] Last Admin: 04/13/18 10:13 Dose: 40 mg Potassium Chloride (K-Dur 20 Meq Er Tab) 20 meq PO BRK [facility] Last Admin: 04/13/18 10:14 Dose: 20 meq Pregabalin (Lyrica) 25 mg PO BID [facility] Last Admin: 04/13/18 17:40 Dose: Not Given - Labs Labs: 04/14/18 05:30 04/14/18 05:30 PT 20.4 SECONDS (9.4-12.5) H 04/12/18 13:00 INR 1.75 04/12/18 13:00 APTT 65.7 Seconds (25.1-36.5) H 04/12/18 13:00 - Constitutional Appears: No Acute Distress, Unkempt - Head Exam Head Exam: ATRAUMATIC, NORMOCEPHALIC - Eye Exam Eye Exam: EOMI Pupil Exam: PERRL - ENT Exam ENT Exam: Mucous Membranes Moist - Respiratory Exam Respiratory Exam: Decreased Breath Sounds. absent: Rales, Rhonchi, Wheezes - Cardiovascular Exam Cardiovascular Exam: +S1, +S2. absent: Gallop, Rubs - GI/Abdominal Exam GI & Abdominal Exam: Soft. absent: Distended, Firm, Guarding, Rigid, Tenderness , Rebound - Neurological Exam Neurological Exam: Alert, Awake, CN II-XII Intact, Oriented x3 - Psychiatric Exam Psychiatric exam: Normal Affect, Normal Mood - Skin Skin Exam: Dry, Intact, Normal Color, Warm Assessment and Plan - Assessment and Plan (Free Text) Plan: 58yo male with history of uncontrolled insulin-requiring DM type 2, paroxysmal atrial fibrillation on Pradaxa, CAD, chronic venous stasis ulcers, HTN, COPD and JOSELINE who presented to [facility] – [place], [place] with dizziness/lightheadedness in the setting of hyperglycemia and acute kidney injury. -Basal/bolus insulin regimen has been adjusted to levemir 40u HS and humalog 20u AC with additional insulin sliding scale coverage as ordered -Will continue to follow BG and adjust accordingly -Consistent carb diet -Monitor/correct electrolyte abnormalities as indicated -A1C on this admission noted to be 14.1 -Continue current medical management as per primary team Patient seen and case to be discussed with attending, Dr. Salvador
[2018-04-14] MEDS: Potassium Chloride 20 mEq ER Tab PO SCH (10:36)
[2018-04-14] MEDS: Pantoprazole 40 mg EC Tab PO SCH (10:36)
[2018-04-14] MEDS: diltiaZEM 240 mg/24 Hours CD Cap PO SCH (10:36)
--- NOTE | 2018-04-14 12:39 | MRI ---
Date of service: 04/14/2018 PROCEDURE: MRI BRAIN WITHOUT CONTRAST HISTORY: r/o seizure COMPARISON: None available. TECHNIQUE: Multiplanar, multisequence MR images of the brain were obtained without intravenous contrast enhancement. FINDINGS: HEMORRHAGE: None DWI: No evidence of an acute or early subacute infarction. BRAIN PARENCHYMA: No mass effect or edema. Chronic microvascular changes. Mild atrophy. No acute findings VENTRICLES: Unremarkable. No hydrocephalus. CRANIUM: Unremarkable. ORBITS: Grossly unremarkable. PARANASAL SINUSES/MASTOIDS: Clear VASCULAR SYSTEM: Skull base flow voids intact. OTHER FINDINGS: None. IMPRESSION: No acute findings
[2018-04-14] MEDS ORDERED: Ergocalciferol 50,000 Intl Units Cap PO SCH (13:00)
--- NOTE | 2018-04-14 14:21 | CP.PCM.PN ---
<Hernando Rivera Dorothy - Last Filed: 04/14/18 14:45> Subjective - Date & Time of Evaluation Date of Evaluation: 04/14/18 Time of Evaluation: 13:42 - Subjective Subjective: Medicine progress note - Nicole PGY - 2, Internal medicine resident Patient seen and examined at bedside. No new complaints, patient is back to his baseline mentally. No acute overnight events. Objective - Vital Signs/Intake and Output Vital Signs (last 24 hours): Temp Pulse Resp BP Pulse Ox 98 F 78 18 112/63 97 04/14/18 12:07 04/14/18 12:07 04/14/18 12:07 04/14/18 12:07 04/14/18 08:32 Intake and Output: 04/14/18 04/14/18 06:59 18:59 Intake Total 1440 Output Total 2950 Balance -1510 - Medications Medications: Current Medications Aspirin (Aspirin Chewable) 81 mg PO DAILY [facility] Last Admin: 04/14/18 10:36 Dose: 81 mg Dabigatran (Pradaxa) 150 mg PO Q12 [facility] PRN Reason: Protocol Last Admin: 04/14/18 10:36 Dose: 150 mg Dextrose (Dextrose 50% Inj) 0 ml IV STAT PRN; Protocol PRN Reason: Hypoglycemia Protocol Diltiazem HCl (Cardizem Cd) 240 mg PO DAILY [facility] Last Admin: 04/14/18 10:36 Dose: 240 mg Ergocalciferol (Drisdol 50,000 Intl Units Cap) 1 cap PO Q7D [facility] Last Admin: 04/14/18 13:32 Dose: 1 cap Dextrose (Dextrose 5% In Water 1000 Ml) 1,000 mls @ 0 mls/hr IV .Q0M PRN; Protocol; Per Protocol PRN Reason: Hypoglycemia Protocol Insulin Detemir (Levemir) 40 unit SC HS [facility] Last Admin: 04/13/18 21:47 Dose: 40 units Insulin Human Lispro (Humalog Med) 0 units SC ACHS [facility] PRN Reason: Protocol Last Admin: 04/14/18 11:28 Dose: 10 units Insulin Human Lispro (Humalog) 20 units SC AC [facility] Last Admin: 04/14/18 13:32 Dose: 20 units Levalbuterol HCl (Xopenex) 1.25 mg IH [id number] PRN PRN Reason: Shortness of Breath Lorazepam (Ativan) 2 mg IVP Q6H PRN; Protocol PRN Reason: Symptoms of alcohol withdrawl Last Admin: 04/14/18 11:32 Dose: 2 mg Metoprolol Tartrate (Lopressor) 50 mg PO Q12 [facility] Last Admin: 04/14/18 10:41 Dose: 50 mg Oxycodone/Acetaminophen (Percocet 5/325 Mg Tab) 1 tab PO Q6H PRN PRN Reason: Pain, moderate (4-7) Stop: 04/15/18 15:53 Last Admin: 04/14/18 02:39 Dose: 1 tab Pantoprazole Sodium (Protonix Ec Tab) 40 mg PO ACB [facility] Last Admin: 04/14/18 10:36 Dose: 40 mg Potassium Chloride (K-Dur 20 Meq Er Tab) 20 meq PO BRK [facility] Last Admin: 04/14/18 10:36 Dose: 20 meq Pregabalin (Lyrica) 25 mg PO BID [facility] Last Admin: 04/14/18 10:36 Dose: 25 mg - Labs Labs: 04/14/18 05:30 04/14/18 05:30 PT 20.4 SECONDS (9.4-12.5) H 04/12/18 13:00 INR 1.75 04/12/18 13:00 APTT 65.7 Seconds (25.1-36.5) H 04/12/18 13:00 - Constitutional Appears: Well - Head Exam Head Exam: ATRAUMATIC, NORMAL INSPECTION, NORMOCEPHALIC - Eye Exam Eye Exam: EOMI, Normal appearance, PERRL Pupil Exam: NORMAL ACCOMODATION, PERRL - ENT Exam ENT Exam: Mucous Membranes Moist, Normal Exam - Neck Exam Neck Exam: Full ROM, Normal Inspection. absent: Lymphadenopathy - Respiratory Exam Respiratory Exam: Clear to Ausculation Bilateral, NORMAL BREATHING PATTERN - Cardiovascular Exam Cardiovascular Exam: REGULAR RHYTHM, +S1, +S2. absent: Murmur - GI/Abdominal Exam GI & Abdominal Exam: Soft, Normal Bowel Sounds. absent: Tenderness - Extremities Exam Extremities Exam: Full ROM, Normal Capillary Refill, Normal Inspection. absent : Joint Swelling, Pedal Edema - Back Exam Back Exam: NORMAL INSPECTION - Neurological Exam Neurological Exam: Alert, Awake, CN II-XII Intact, Normal Gait, Oriented x3 - Psychiatric Exam Psychiatric exam: Normal Affect, Normal Mood - Skin Skin Exam: Dry, Intact, Normal Color, Warm Assessment and Plan - Assessment and Plan (Free Text) Assessment: 58 year old male presents with confusion/AMS, ultimately found to have hyperglycemia, MADELYN. Hx NIDDM Hx CHF Hx Paroxysmal Atrial Fibrillation on Pradaxa Hx Non-obstructive coronary artery disease Hx Chronic venous stasis ulcers Hx HTN Hx COPD Hx JOSELINE CT head was negative for any acute events, indicating that patient did not have acute bleed as etiology of the AMS. Seeing as symptoms have resolved without anti-epileptics, seizure is less likely differential. CVA is still on the differential since MRI brain has not been performed yet, but most likely scenario right now is that patient's hyperglycemia led to altered mentation. Patient continues to have bouts of hyperglycemia, but has no acidosis or AG ( last BG was yesterday with normal pH, and AG today is 12). Patient mentation is back to baseline. Patient's feet ulcers are being managed by podiatry - pro-richardson is negative but CRP is elevated; P Mirabilis and E. Faecalis are in wound cultures, initially on MErrem, which was stopped 2/2 reaction. No indication of osteomyelitis. RE: MADELYN, patient is still at 1.8 on CR, most likely 2/2 dehdyration + multiple diuretic use. Unfortunately, fluid hydration must be conservative 2/2 patient' s history of CHF. AMS, likely 2/2 CVA vs TIA vs polypharmacy (multiple diuretic use) vs Hyperglycemia (most likely) - On ASA, lipitor - Orthostatic vital signs - Will hold home lasix, metalazone, aldactone. Cardiology consulted for appropriate medication regimen. - Endocrinology consulted. F/u recs. - Seizure precautions, Fall precautions, Neuro checks - Neurology Following: MRI Brain, EEG pending Bilateral feet ulcers: - Vancomycin - ID consulted - Podiatry consulted MADELYN: - Received 500 ml NS bolus in ED - Renal consulted. f/u recs - Avoid nephrotoxic agents - WILL HOLD ALL DIURETICS AND ALLOW IVF UNTIL SUGARS IMPROVED - Nephrology Following Hx of afib: - EKG: Afib @ 111 bpm. Qtc 451 ms - C/w home cardizem, metoprolol, pradaxa - d/c Tele Hx of diastolic CHF: - BNP 890 (prev 2150) - Echo 12/2016: EF 55%. Mildly dilated LV. Mild to moderate concentric LVH. right ventricle moderately dilated. Systolic function of RV moderately reduced. trace to mild AR. Dilated IVC. - MUGA 12/2016 scan showed EF 64%. - CXR persistent moderate cardiomegaly. neg for infiltrates - given lasix 40 mg IV in ED. - on home lasix 40 mg PO BID - c/w home metoprolol. hold home aldactone, metalazone - cardiology consulted. f/u recs Hx of COPD: - duoneb inhaler Hx of DM: - ISS high - Levemir 30HS - 18U AC - Endocrinology Following; Appreciate Reccs PPX: protonix, pradaxa <Cora Garcia A - Last Filed: 04/14/18 15:11> Objective - Vital Signs/Intake and Output Vital Signs (last 24 hours): Temp Pulse Resp BP Pulse Ox 98 F 78 18 112/63 97 04/14/18 12:07 04/14/18 12:07 04/14/18 12:07 04/14/18 12:07 04/14/18 08:32 Intake and Output: 04/14/18 04/14/18 06:59 18:59 Intake Total 1440 Output Total 2950 Balance -1510 - Medications Medications: Current Medications Aspirin (Aspirin Chewable) 81 mg PO DAILY [facility] Last Admin: 04/14/18 10:36 Dose: 81 mg Dabigatran (Pradaxa) 150 mg PO Q12 [facility] PRN Reason: Protocol Last Admin: 04/14/18 10:36 Dose: 150 mg Dextrose (Dextrose 50% Inj) 0 ml IV STAT PRN; Protocol PRN Reason: Hypoglycemia Protocol Diltiazem HCl (Cardizem Cd) 240 mg PO DAILY [facility] Last Admin: 04/14/18 10:36 Dose: 240 mg Ergocalciferol (Drisdol 50,000 Intl Units Cap) 1 cap PO Q7D [facility] Last Admin: 04/14/18 13:32 Dose: 1 cap Dextrose (Dextrose 5% In Water 1000 Ml) 1,000 mls @ 0 mls/hr IV .Q0M PRN; Protocol; Per Protocol PRN Reason: Hypoglycemia Protocol Insulin Detemir (Levemir) 60 unit SC HS [facility] Insulin Human Lispro (Humalog Med) 0 units SC ACHS [facility] PRN Reason: Protocol Last Admin: 04/14/18 11:28 Dose: 10 units Insulin Human Lispro (Humalog) 30 units SC AC [facility] Levalbuterol HCl (Xopenex) 1.25 mg IH [id number] PRN PRN Reason: Shortness of Breath Lorazepam (Ativan) 2 mg IVP Q6H PRN; Protocol PRN Reason: Symptoms of alcohol withdrawl Last Admin: 04/14/18 11:32 Dose: 2 mg Metoprolol Tartrate (Lopressor) 50 mg PO Q12 [facility] Last Admin: 04/14/18 10:41 Dose: 50 mg Oxycodone/Acetaminophen (Percocet 5/325 Mg Tab) 1 tab PO Q6H PRN PRN Reason: Pain, moderate (4-7) Stop: 04/15/18 15:53 Last Admin: 04/14/18 02:39 Dose: 1 tab Pantoprazole Sodium (Protonix Ec Tab) 40 mg PO ACB [facility] Last Admin: 04/14/18 10:36 Dose: 40 mg Potassium Chloride (K-Dur 20 Meq Er Tab) 20 meq PO BRK [facility] Last Admin: 04/14/18 10:36 Dose: 20 meq Pregabalin (Lyrica) 25 mg PO BID [facility] Last Admin: 04/14/18 10:36 Dose: 25 mg - Labs Labs: 04/14/18 05:30 04/14/18 05:30 PT 20.4 SECONDS (9.4-12.5) H 04/12/18 13:00 INR 1.75 04/12/18 13:00 APTT 65.7 Seconds (25.1-36.5) H 04/12/18 13:00 Attending/Attestation - Attestation I have personally seen and examined this patient.: Yes I have fully participated in the care of the patient.: Yes I have reviewed all pertinent clinical information, including history, physical exam and plan: Yes Notes (Text): 04/14/18 15:06 58 year old male with past medical history of diabetes, afib on pradaxa, CAD, diastolic CHF, chronic venous stasis ulcers, hypertension, COPD and alcohol use who presented with chronic dyspnea, chronic leg swelling/ulcer and altered mental status. He was found to have hyperglycemia and MADELYN. CT head showed moderate chronic microangiopathic changes, mild age related global parenchymal loss; no acute changes. MRI brain was negative as well. He is pending EEG. Neurology is following. Patient's mental status has returned to baseline. Probnp mildly elevated (890). CXR showed moderate cardiomegaly. He received iv lasix in ER. Patient is not in acute CHF. Will continue to hold diuretics given MADELYN. Cardiology is following. He is on cardizem, metoprolol and pradaxa for afib. Nephrology is following for MADELYN. Diuretics are on hold for now as above. Creatinine has been stable. Will follow up with nephrology recommendations. Continue with insulin ss, humalog and levemir for diabetes. A1c level is 13.9. Diabetic education referral requested. His sugars are still uncontrolled and his humalog and levemir are being adjust by endocrinology. Podiatry and ID evaluation requested for bilateral feet ulcerations. Xrays reviewed. ESR / CRP elevated. LE doppler was done with pending read. Wound culture from 04/07 grew proteus mirabilis and enterococcus faecalis. He received meropenem and 1 dose of vancomycin yesterday. He is pending podiatry evaluation of his leg (refusing other physicians to examine). Will follow up with ID and podiatry recommendations. Counselled on alcohol cessation. Cora Garcia MD Hospitalist.
--- NOTE | 2018-04-14 15:02 | CP.PCM.PN ---
Subjective - Date & Time of Evaluation Date of Evaluation: 04/14/18 Time of Evaluation: 15:01 - Subjective Subjective: Nephrology Consultation Note: Assessment: Stable Acute Kidney Injury (N17.9) likely due to pre-renal state due to hyperglycemia, osmotic diuresis and oral loop + thiazide diuretics psuedohyponatremia due to hyperglycemia due to uncontrolled DM Diabetic chronic Kidney Disease (E11.22) Hypertensive Chronic Kidney Disease (I12.9) Chronic Kidney Disease (N18.3) Stage 3 with ? mg proteinuria (R80.9) likely due to DM/HTN A fib on pradaxa, morbid obesity, JOSELINE, CAD, chronic leg edema chronic respi acidosis with renal compensation Plan No acute need for renal replacement therapy at this time. Hypertension control with meds as ordered. Maintain hemodynamics stable. Avoid hypotension. Patient not on ACEI/ARB due to recent MADELYN Monitor Input/Output, daily weights and renal function with basic metabolic panel hold diuretics and continue with IVF for now, until glycemic control and renal function better endocrine, neuro and cardiology following started weekly Vit D Check urine analysis, spot protein/creatinine, albumin/creatinine ratio renal and bladder sonogram Check HIV/Hep B and Hep C serology Check for 25-OH vitamin D, iPTH, phosphorus level. Dose meds/antibiotics for reduced GFR. Avoid fleets enema/magnesium based laxatives. Avoid nephrotoxins/NSAIDs/ iodinated contrast (unless needed emergently) Glycemic control Further work up/management as per primary team Thanks for allowing me to participate in care of your patient. Will follow patient with you. Please call if any Qs. had d/w team Dr Jama Mcwilliams Office: [phone] Chief Complaint; high sugar Reason for consult: Acute Kidney Injury HPI: Pt is a 58 M with hx of diabetes Mellitus (few years), hypertension (years) , A fib on pradaxa, morbid obesity, JOSELINE, CAD, chronic leg edema presented with complaints of confusion and high sugars. renal consult for hyponatremia and Madelyn management. pt also has CKD with baseline cr 1.2-1.4 mg/dL. Denies OTC/herbal meds or NSAIDs No recent iodinated contrast exposure. No obvious episodes of low BP. feels better now ROS: Cardiovascular: No chest pain. Pulmonary: has shortness of breath as per pt Gastrointestinal: denies abdominal pain No nausea. No vomiting. Genitourinary: No pain while urinating. Denies blood in urine. but reports urine incontinence All other negative except as mentioned in HPI Physical Examination: General Appearance: Comfortable, in no acute respiratory distress, co-operative . obese Vitals reviewed and noted as below Head; Atraumatic, normocephalic ENT: no ulcers no thrush. Tongue is midline. Oropharynx: no rash or ulcers. EYES: Pupils are equal, round and reactive to light accommodation. Eye muscles and extraocular movement intact. Sclera is anicteric. Neck; supple no lymphadenopathy, no thyromegaly or bruit Lungs: Normal respiratory rate/effort. Breath sounds bilateral equal and clear Heart: Normal rate. s1s2 normal. No rub or gallop. Extremities: chronic edema with compressive bandages. pt doesn't want his leg to be examined except by his grid caster Neurological: Patient is alert, awake and oriented to person, place and time. No focal deficit. Strength bilateral appropriate and equal Skin: Warm and dry. Normal turgor. No rash. Palpitation: Normal elasticity for age Abdomen: Abdomen is soft. Bowel sounds +. There is no abdominal tenderness, no guarding/rigidity no organomegaly Psych: limited insight and normal affect/mood MSK: no joint tenderness or swelling. Digits and nails normal, no deformity : kidney or bladder not palpable Labs/imaging reviewed. Past medical history, past surgical history, family history, social history, allergy reviewed and noted as below Family hx: no hx of CKD. Rest non-contributory work up: ABG 7.32 pCo2: 55 urine Na 48 osmol 357 UA SG <1.005 A1c 14% Objective - Vital Signs/Intake and Output Vital Signs (last 24 hours): Temp Pulse Resp BP Pulse Ox 98 F 78 18 112/63 97 04/14/18 12:07 04/14/18 12:07 04/14/18 12:07 04/14/18 12:07 04/14/18 08:32 Intake and Output: 04/14/18 04/14/18 06:59 18:59 Intake Total 1440 Output Total 2950 Balance -1510 - Medications Medications: Current Medications Aspirin (Aspirin Chewable) 81 mg PO DAILY [facility] Last Admin: 04/14/18 10:36 Dose: 81 mg Dabigatran (Pradaxa) 150 mg PO Q12 SHAHEED PRN Reason: Protocol Last Admin: 04/14/18 10:36 Dose: 150 mg Dextrose (Dextrose 50% Inj) 0 ml IV STAT PRN; Protocol PRN Reason: Hypoglycemia Protocol Diltiazem HCl (Cardizem Cd) 240 mg PO DAILY [facility] Last Admin: 04/14/18 10:36 Dose: 240 mg Ergocalciferol (Drisdol 50,000 Intl Units Cap) 1 cap PO Q7D [facility] Last Admin: 04/14/18 13:32 Dose: 1 cap Dextrose (Dextrose 5% In Water 1000 Ml) 1,000 mls @ 0 mls/hr IV .Q0M PRN; Protocol; Per Protocol PRN Reason: Hypoglycemia Protocol Insulin Detemir (Levemir) 40 unit SC HS [facility] Last Admin: 04/13/18 21:47 Dose: 40 units Insulin Human Lispro (Humalog Med) 0 units SC ACHS [facility] PRN Reason: Protocol Last Admin: 04/14/18 11:28 Dose: 10 units Insulin Human Lispro (Humalog) 20 units SC AC [facility] Last Admin: 04/14/18 13:32 Dose: 20 units Levalbuterol HCl (Xopenex) 1.25 mg IH [id number] PRN PRN Reason: Shortness of Breath Lorazepam (Ativan) 2 mg IVP Q6H PRN; Protocol PRN Reason: Symptoms of alcohol withdrawl Last Admin: 04/14/18 11:32 Dose: 2 mg Metoprolol Tartrate (Lopressor) 50 mg PO Q12 [facility] Last Admin: 04/14/18 10:41 Dose: 50 mg Oxycodone/Acetaminophen (Percocet 5/325 Mg Tab) 1 tab PO Q6H PRN PRN Reason: Pain, moderate (4-7) Stop: 04/15/18 15:53 Last Admin: 04/14/18 02:39 Dose: 1 tab Pantoprazole Sodium (Protonix Ec Tab) 40 mg PO ACB [facility] Last Admin: 04/14/18 10:36 Dose: 40 mg Potassium Chloride (K-Dur 20 Meq Er Tab) 20 meq PO BRK [facility] Last Admin: 04/14/18 10:36 Dose: 20 meq Pregabalin (Lyrica) 25 mg PO BID [facility] Last Admin: 04/14/18 10:36 Dose: 25 mg - Labs Labs: 08/27/18 05:30 04/14/18 05:30 PT 20.4 SECONDS (9.4-12.5) H 04/12/18 13:00 INR 1.75 04/12/18 13:00 APTT 65.7 Seconds (25.1-36.5) H 04/12/18 13:00
[2018-04-14] MEDS: Insulin Lispro (humaLOG) LOW Coverage SC SCH ×2 (16:51→22:07)
--- NOTE | 2018-04-14 17:40 | CP.PCM.PN ---
Objective - Vital Signs/Intake and Output Vital Signs (last 24 hours): Temp Pulse Resp BP Pulse Ox 98 F 78 18 112/63 97 04/14/18 12:07 04/14/18 12:07 04/14/18 12:07 04/14/18 12:07 04/14/18 08:32 Intake and Output: 04/14/18 04/14/18 06:59 18:59 Intake Total 1440 Output Total 2950 Balance -1510 - Medications Medications: Current Medications Aspirin (Aspirin Chewable) 81 mg PO DAILY [facility] Last Admin: 04/14/18 10:36 Dose: 81 mg Dabigatran (Pradaxa) 150 mg PO Q12 [facility]HE[facility] PRN Reason: Protocol Last Admin: 04/14/18 10:36 Dose: 150 mg Dextrose (Dextrose 50% Inj) 0 ml IV STAT PRN; Protocol PRN Reason: Hypoglycemia Protocol Diltiazem HCl (Cardizem Cd) 240 mg PO DAILY [facility] Last Admin: 04/14/18 10:36 Dose: 240 mg Ergocalciferol (Drisdol 50,000 Intl Units Cap) 1 cap PO Q7D [facility] Last Admin: 04/14/18 13:32 Dose: 1 cap Dextrose (Dextrose 5% In Water 1000 Ml) 1,000 mls @ 0 mls/hr IV .Q0M PRN; Protocol; Per Protocol PRN Reason: Hypoglycemia Protocol Insulin Detemir (Levemir) 60 unit SC HS [facility] Insulin Human Lispro (Humalog) 30 units SC AC [facility] Last Admin: 04/14/18 16:51 Dose: 1 unit Insulin Human Lispro (Humalog Low) 0 units SC ACHS [facility] PRN Reason: Protocol Last Admin: 04/14/18 16:51 Dose: 4 units Levalbuterol HCl (Xopenex) 1.25 mg IH [id number] PRN PRN Reason: Shortness of Breath Lorazepam (Ativan) 2 mg IVP Q6H PRN; Protocol PRN Reason: Symptoms of alcohol withdrawl Last Admin: 04/14/18 11:32 Dose: 2 mg Metoprolol Tartrate (Lopressor) 50 mg PO Q12 [facility] Last Admin: 04/14/18 10:41 Dose: 50 mg Oxycodone/Acetaminophen (Percocet 5/325 Mg Tab) 1 tab PO Q6H PRN PRN Reason: Pain, moderate (4-7) Stop: 04/15/18 15:53 Last Admin: 04/14/18 16:50 Dose: 1 tab Pantoprazole Sodium (Protonix Ec Tab) 40 mg PO ACB [facility] Last Admin: 04/14/18 10:36 Dose: 40 mg Potassium Chloride (K-Dur 20 Meq Er Tab) 20 meq PO BRK [facility] Last Admin: 04/14/18 10:36 Dose: 20 meq Pregabalin (Lyrica) 25 mg PO BID [facility] Last Admin: 04/14/18 17:10 Dose: 25 mg - Labs Labs: 04/14/18 05:30 04/14/18 05:30 PT 20.4 SECONDS (9.4-12.5) H 04/12/18 13:00 INR 1.75 04/12/18 13:00 APTT 65.7 Seconds (25.1-36.5) H 04/12/18 13:00
--- NOTE | 2018-04-14 17:59 | US ---
HISTORY: Leg pain and swelling. Evaluate for DVT PHYSICIAN(S): Jori Alejandra MD. TECHNIQUE: Duplex sonography and color-flow Doppler with graded compression were used to evaluate the deep venous systems of both lower extremities. The exam is very limited by body habitus and edema. The tibial veins are not adequately seen FINDINGS: The visualized deep venous systems of both lower extremities are sonographically normal and compressible. Normal wave forms and augmentation are seen. There is no sonographic evidence for deep venous thrombosis in the visualized segments of both lower extremities. IMPRESSION: No sonographic evidence for deep venous thrombosis in the visualized segments of both lower extremities. Limited study
--- NOTE | 2018-04-14 20:07 | PN ---
Copied To: Jolene Meadows DPM Attending MD: Jolene Meadows DPM DATE: 04/14/2018 SUBJECTIVE: This is a 58-year-old diabetic male seen for bilateral stasis ulcers. These ulcerations are chronic in nature secondary to cardiac disease and venous insufficiency. The patient states that his sugars went up over 500 and he became delirious and was admitted to the hospital. His legs are seen wrapped in Unna boots which he had put on at the wound care center last week. PHYSICAL EXAMINATION: VITAL SIGNS: His vital signs were reviewed. His temperature is 98, the blood pressure is 112/63, respirations are 18 and he is oxygen on room air. MEDICATIONS: The patient's medications were also reviewed. He was ordered one dose of vancomycin by Infectious Disease, pending cultures. LABORATORY DATA: His labs were also reviewed. His white blood cell count is 9.2, the H and H is 13.3 and 38.6 and his platelets are 345. The patient's granulocytes are 7.3, lymphocytes are 18.5 and his ESR is 43. Coag INR is 1.75 and the chemistry show his BUN and creatinine to be 44 and 1.8 and his random glucose was 343 on his blood; however, fingerstick had a high of 474. Microbiology: Blood with no growth. If you look in all visits, you can see that his last wound care visit with me was on 04/07/2018 and the wound culture grew Proteus mirabilis and Enterococcus faecalis, both of them sensitive to ampicillin. The patient's dressings were removed. His lower extremities were reviewed. He has nonpalpable pedal pulses secondary to chronic indurated edema bilateral. However, his ABIs were done not too long ago and they were grossly within normal limits. He has a new ulceration on the lateral right foot, which I had not seen previous. He states he stepped in a large puddle of water and the dressing macerated causing his wound on the plantar lateral aspect of the right foot. This ulceration is through the fat layers and no sinus tract bone is noted and at this time, there is no pus or fluctuance noted. No cellulitis was noted. He has multiple small ulcerations on the legs with some malodor secondary to heavy colony underneath the Unna boot. His left lower extremity also has several wounds, mostly superficial also though with some malodor to it after removal of the Unna boot. Neither of the legs have any cellulitis. Neither of the legs are hot or fluctuant. There is an ulceration also on the dorsal aspect of the left hallux. This ulceration also goes to the fat layer. No underlying structures, such as tendon or bone are seen in this wound. ASSESSMENT: Diabetic with diabetic foot ulcers and stasis ulcers bilateral. PLAN OF TREATMENT: X-rays will be ordered for both feet, rule out osteo on the styloid process of the fifth metatarsal on the right and on the hallux of the left. Local wound care was ordered. We are applying Maxorb and dry sterile dressings to all wounds. He was instructed to keep his legs elevated. We are going to try and bring him some compression stockings from the wound care center on his next visit. New cultures will be obtained during his next visit tomorrow. The patient was urged to keep his legs elevated while sitting in bed; however, he was also urged to ambulate as freely. The patient will be seen on a daily basis. Jolene Meadows DPM
--- NOTE | 2018-04-14 21:07 | PN ---
Copied To: Chelsea Salvador MD Attending MD: Chelsea Salvador MD DATE: 04/14/2018 ENDOCRINOLOGY FOLLOWUP NOTE LOCATION: In room 574, bed 1. SUBJECTIVE: This is a 58-year-old male with recent uncontrolled type 2 insulin-requiring diabetes, now being followed closely for metabolic management. His glycemic levels are still fluctuating with marked hyperglycemic accelerations especially overnight as noted and the glucose levels have ranged from 309-360 mg/dL. His chemistry showed a BUN of 44, sodium 131, potassium 4.4, chloride 90, CO2 of 29, glucose 343 and creatinine 1.8. ASSESSMENT: This is a 58-year-old male with uncontrolled and decompensated type 2 insulin-requiring diabetes with persistent hyperglycemic accelerations expected with the underlying obesity and increased insulin resistance thereof as noted. Moreover, as discussed with the medical staff, they also have been holding his Humalog insulin as ordered with expected glycemic fluctuations noted. PLAN OF MANAGEMENT: We will modify once again his basal and bolus insulin regimen to a much higher dosing to override the increased insulin resistance and increase the Humalog to 30 units subcu t.i.d. before meals to start today. We will also increase the basal insulin with Levemir to be given as 60 units subcu at bedtime daily to start tonight. We will modify the coverage scale to a very low-dose algorithm using Humalog insulin to obviate hypoglycemia and detailed orders have been given. We will obtain serial chemistries and supplement accordingly as needed. We will follow. Chelsea Salvador MD
[2018-04-14 21:59] VITALS: RESP 20
[2018-04-14] MEDS ORDERED: Insulin Detemir 100 units/ml Vial (Levemir) SC SCH (22:00)
[2018-04-15] MEDS: Oxycodone/Acetaminophen 5/325 mg Tab PO PRN ×2 (05:33→12:41)
[2018-04-15 06:55] LABS: BASO # 0.11 K/mm3 (0.0-2.0); BASO % 1.1 % (0.0-3.0); EOS # 0.3 (0.0-0.7); EOS % 2.5 % (1.5-5.0); GRAN # 7.01 (1.4-6.5); HEMOGLOBIN 13.5 g/dL (14.0-18.0); LYMPH # 1.8 (1.2-3.4); LYMPH % 18.3 % (22.0-35.0); MEAN CELL VOLUME 90.6 fl (80.0-105.0); MEAN CORPUSCULAR HEMOGLOBIN 30.3 pg (25.0-35.0); MEAN CORPUSCULAR HGB CONC 33.5 g/dl (31.0-37.0); MEAN PLATELET VOLUME 9.6 fl (7.0-11.0); MONO # 0.7 (0.1-0.6); MONO % 7.1 % (1.0-6.0); RBC 4.45 10^6/uL (3.5-6.1); RED CELL DISTRIBUTION WIDTH 14.2 % (11.5-14.5); WHITE BLOOD COUNT 9.9 10^3/ul (4.5-11.0)
[2018-04-15 07:08] LABS: ALBUMIN 4.1 g/dL (3.0-4.8); CALCIUM 8.6 mg/dL (8.4-10.5)
--- NOTE | 2018-04-15 07:46 | CP.PCM.PN ---
Subjective - Date & Time of Evaluation Date of Evaluation: 04/15/18 Time of Evaluation: 06:15 - Subjective Subjective: denies shortness of breath, awake, sitting side of bed, feels hungry Reason for consultation and follow up: Cardiac evaluation for shortness of breath when climbing the stairs,history of paroxysmal atrial fibrillation on Pradaxa,coronary artery disease with stents,COPD, NIDDM, JOSELINE, Seen and examined by me and Dr. Vargas Objective - Vital Signs/Intake and Output Vital Signs (last 24 hours): Temp Pulse Resp BP Pulse Ox 97.8 F 62 20 111/77 90 L 04/14/18 21:59 04/14/18 22:13 04/14/18 21:59 04/14/18 22:13 04/14/18 21:59 Intake and Output: 04/15/18 04/15/18 06:59 18:59 Intake Total 1160 Output Total 800 Balance 360 - Medications Medications: Current Medications Aspirin (Aspirin Chewable) 81 mg PO DAILY [facility] Last Admin: 04/14/18 10:36 Dose: 81 mg Dabigatran (Pradaxa) 150 mg PO Q12 [facility] PRN Reason: Protocol Last Admin: 04/14/18 22:13 Dose: 150 mg Dextrose (Dextrose 50% Inj) 0 ml IV STAT PRN; Protocol PRN Reason: Hypoglycemia Protocol Diltiazem HCl (Cardizem Cd) 240 mg PO DAILY [facility] Last Admin: 04/14/18 10:36 Dose: 240 mg Ergocalciferol (Drisdol 50,000 Intl Units Cap) 1 cap PO Q7D [facility] Last Admin: 04/14/18 13:32 Dose: 1 cap Dextrose (Dextrose 5% In Water 1000 Ml) 1,000 mls @ 0 mls/hr IV .Q0M PRN; Protocol; Per Protocol PRN Reason: Hypoglycemia Protocol Insulin Detemir (Levemir) 60 unit SC HS [facility] Last Admin: 04/14/18 22:13 Dose: 60 units Insulin Human Lispro (Humalog) 30 units SC AC [facility] Last Admin: 04/14/18 16:51 Dose: 1 unit Insulin Human Lispro (Humalog Low) 0 units SC ACHS [facility] PRN Reason: Protocol Last Admin: 04/14/18 22:07 Dose: Not Given Levalbuterol HCl (Xopenex) 1.25 mg IH [id number] PRN PRN Reason: Shortness of Breath Lorazepam (Ativan) 2 mg IVP Q6H PRN; Protocol PRN Reason: Symptoms of alcohol withdrawl Last Admin: 04/15/18 05:34 Dose: 2 mg Metoprolol Tartrate (Lopressor) 50 mg PO Q12 [facility] Last Admin: 04/14/18 22:13 Dose: 50 mg Oxycodone/Acetaminophen (Percocet 5/325 Mg Tab) 1 tab PO Q6H PRN PRN Reason: Pain, moderate (4-7) Stop: 04/15/18 15:53 Last Admin: 04/15/18 05:33 Dose: 1 tab Pantoprazole Sodium (Protonix Ec Tab) 40 mg PO ACB [facility] Last Admin: 04/14/18 10:36 Dose: 40 mg Potassium Chloride (K-Dur 20 Meq Er Tab) 20 meq PO BRK [facility] Last Admin: 04/14/18 10:36 Dose: 20 meq Pregabalin (Lyrica) 25 mg PO BID [facility] Last Admin: 04/14/18 17:10 Dose: 25 mg - Labs Labs: 04/15/18 06:00 04/15/18 06:00 PT 20.4 SECONDS (9.4-12.5) H 04/12/18 13:00 INR 1.75 04/12/18 13:00 APTT 65.7 Seconds (25.1-36.5) H 04/12/18 13:00 - Constitutional Appears: No Acute Distress - Eye Exam Eye Exam: Normal appearance - ENT Exam ENT Exam: Mucous Membranes Moist - Respiratory Exam Respiratory Exam: Decreased Breath Sounds, NORMAL BREATHING PATTERN - Cardiovascular Exam Cardiovascular Exam: +S1, +S2 - GI/Abdominal Exam GI & Abdominal Exam: Soft, Normal Bowel Sounds - Extremities Exam Additional comments: leg swelling, right foot with dressing - Neurological Exam Neurological Exam: Alert, Awake, Oriented x3 - Psychiatric Exam Psychiatric exam: Normal Affect - Skin Skin Exam: Dry, Warm Assessment and Plan - Assessment and Plan (Free Text) Assessment: A 58 year old male morbidly obese, who came in to the ER due to not feeling well. Blood glucose in ER was 638.Uncontrolled blood glucose.Insulin given in ER. He claimed to have shortness of breath when climbing stairs. History of paroxysmal atrial fibrillation on Pradaxa,COPD,coronary artery disease with stents, non-insulin diabetes mellitus,obstructive sleep apnea,hypertension, chronic venous stasis on both legs, former smoker, drinks beer everyday.Denies shortness of breath lying in bed. Uncontrolled diabetes mellitus. Chest X ray normal,cardiomegaly.Exacerbation of COPD.12/17/16- ECHO-Mild to moderate concentric LV hyperthropy, LVEF 55%, Moderately dilated RV, Moderately reduced systolic RV, Moderate AR, Trace MR/TR.12/18/16- Muga scan-RV normal wall motion, LV normal, LVEF 64% Plan: Feels, hungry, breakfast will be serve soon Heart rate and blood pressure controlled Cardiac status stable Glucose better, high 200's, (on admission-high 400's) Followed up by Endocrine On ASA 81 mg daily,Lopressor 50 mg every 12 hours,Cardizem CD 240 mg daily, Pradaxa 150 mg every 12 hours for chronic atrial fibrillation, rate controlled ID on consult Pulmonary and Renal on consult Continue current medications Continue current treatment Will follow up Plan and treatment discussed with Dr. Vargas
[2018-04-15] MEDS ORDERED: Sodium Chloride 0.9% 1,000 ML IV SCH (08:00)
--- NOTE | 2018-04-15 08:09 | RAD ---
Date of service: 04/14/2018 PROCEDURE: Left Foot Radiographs. HISTORY: hallux ulcer COMPARISON: None. FINDINGS: BONES: No acute fracture or destructive bony lesion identified. No erosive or reactive changes are appreciated at the great toe with up suggest osteomyelitis in this patient with history of hallux ulcer. MRI is more sensitive and can be utilized for more detailed evaluation. Soft tissues appear unremarkable. degenerative changes seen throughout the joints of the foot diffusely. Large plantar calcaneal spur and there is prominent ossification insertion of the Achilles tendon on the posterior calcaneus. JOINTS: As above. SOFT TISSUES: As above. OTHER FINDINGS: None. IMPRESSION: No overt radiographic sign of osteomyelitis, particularly at the great toe. No acute fracture or dislocation. MRI is available for follow-up if clinically warranted.
--- NOTE | 2018-04-15 08:15 | RAD ---
Date of service: 04/14/2018 PROCEDURE: Right Foot Radiographs. HISTORY: ulcer lateral 5th MPJ COMPARISON: None. FINDINGS: BONES: No acute fracture or destructive bony lesion identified. There are advanced degenerative changes identified at the 1st metatarsophalangeal joint manifest by subchondral cyst formation, articular cortical sclerosis and gross osteophyte development as well as marked joint space loss. Similar changes at developed at the interphalangeal joint of the great toe though not quite as severe as the 1st metatarsophalangeal joint. There is an area periosteal deformity at the diaphysis of the proximal phalanx great toe which is nonspecific. Degenerative changes seen at the interphalangeal joints of the 5th digit as well as the 5th metatarsophalangeal joint without erosive changes throughout the great toe or prominent soft tissue pathology evident. Osteomyelitis not favored the 5th digital though there is reportedly a 5th digit lateral ulcer at the metatarsophalangeal joint level. Moderate degenerative changes seen throughout the remaining joints of the right foot including the midfoot and hindfoot articulations. Reticular soft tissue changes at the plantar foot are identified posteriorly as well as the distal leg/ankle which may reflect cellulitis. Clinically correlate further. Moderate plantar calcaneal spur with limited ossification of the Achilles tendon at the posterior calcaneus. JOINTS: As above. SOFT TISSUES: As above. OTHER FINDINGS: None. IMPRESSION: No overt radiographic sign of osteomyelitis at this time. Advanced degenerative joint changes seen at the forefoot, particularly the great toe, as discussed above. MRI can be utilized if further clinical concern for osteomyelitis remains. Findings suspicious for cellulitis of the distal leg, ankle and hindfoot.
--- NOTE | 2018-04-15 08:33 | PN ---
Copied To: Erik Alexander MD Attending MD: Erik Alexander MD DATE: 04/14/2018 SUBJECTIVE: The patient is in bed, in no acute distress. PHYSICAL EXAMINATION: VITAL SIGNS: Temperature is 98, blood pressure is 112/60, respiratory rate of 18. HEENT: Examination of HEENT is unremarkable. NECK: Supple. LUNGS: Have decreased breath sounds. HEART: Normal S1 and S2. ABDOMEN: Soft. LABORATORY EXAMINATION: Reveals a white count of 9.2, hemoglobin of 13. Chemistries are noted. Creatinine is 1.8. Urinalysis is noted and toxicology is noted and microbiology reveals the blood cultures are negative. ASSESSMENT AND PLAN: This is a 58-year-old male who was seen earlier today with morbid obesity, BMI of 43 and diabetes mellitus, diabetic neuropathy, coronary artery disease, congestive heart failure, diastolic with chronic obstructive lung disease, anxiety, chronic lower extremity venous stasis and obstructive sleep apnea and atrial fibrillation presenting with tachycardia and (SIRS) systemic inflammatory response syndrome with acute kidney injury and acute diastolic congestive heart failure on top of chronic congestive heart failure, lower extremity ulcers and Dr. Meadows's note is reviewed. The patient's legs are wrapped in Unna Boots. Chronic indurated edema bilaterally. No cellulitis is noted by Dr. Meadows. Review of orders . Erik Alexander MD
[2018-04-15] MEDS: Potassium Chloride 20 mEq ER Tab PO SCH (08:40)
[2018-04-15] MEDS: Insulin Lispro 1 UNITS/0.01 ML SC SCH ×3 (08:40→18:28)
[2018-04-15] MEDS: Pantoprazole 40 mg EC Tab PO SCH (08:40)
[2018-04-15] MEDS: Insulin Lispro (humaLOG) LOW Coverage SC SCH ×4 (08:41→22:40)
--- NOTE | 2018-04-15 10:08 | PN ---
Copied To: Chelsea Salvador MD Attending MD: Chelsea Salvador MD DATE: 04/15/2018 ENDOCRINOLOGY FOLLOWUP LOCATION: Room 574. This is a 58-year-old male with recent uncontrolled type 2 insulin-requiring diabetes with tremendous underlying increased insulin resistance with concomitant obesity contributing to the aforementioned and is now being followed closely for metabolic management. His glycemic levels are fluctuating, but not improved overnight and the glucose values have ranged from 257 to 284 mg/dL. His latest chemistry showed a BUN of 40, sodium 128, potassium 4.6, chloride 89, CO2 27, glucose 284 and creatinine 1.5. So at this time, we will continue the modified basal and bolus insulin regimen, which actually is a very hefty insulin dosing to override the increased insulin resistance thereof. We will continue his Humalog given as 30 units subcu t.i.d. before meals as ordered. We will also continue the basal insulin given as Levemir 60 units subcu at bedtime daily as given. We will obtain serial chemistries and supplement accordingly as needed. We will follow . Chelsea Salvador MD
[2018-04-15] MEDS ORDERED: Unna Boot TOP ONE (10:20)
--- NOTE | 2018-04-15 12:21 | CP.PCM.PN ---
Subjective - Date & Time of Evaluation Date of Evaluation: 04/15/18 Time of Evaluation: 12:19 - Subjective Subjective: Nephrology Consultation Note: Assessment: Stable Acute Kidney Injury (N17.9) likely due to pre-renal state due to hyperglycemia, osmotic diuresis and oral loop + thiazide diuretics psuedohyponatremia due to hyperglycemia due to uncontrolled DM Diabetic chronic Kidney Disease (E11.22) Hypertensive Chronic Kidney Disease (I12.9) Chronic Kidney Disease (N18.3) Stage 3 with ? mg proteinuria (R80.9) likely due to DM/HTN A fib on pradaxa, morbid obesity, JOSELINE, CAD, chronic leg edema chronic respi acidosis with renal compensation Plan No acute need for renal replacement therapy at this time. Hypertension control with meds as ordered. Maintain hemodynamics stable. Avoid hypotension. Patient not on ACEI/ARB due to recent MADELYN. can resume aldactone Monitor Input/Output, daily weights and renal function with basic metabolic panel held diuretics and continue with IVF for now, until glycemic control and renal function better. can resume loop diuretics soon but to avoid thiazides (such as hctz or metolazone) for now due to hyponatremia endocrine, neuro and cardiology following started weekly Vit D Check urine analysis, spot protein/creatinine, albumin/creatinine ratio renal and bladder sonogram Check HIV/Hep B and Hep C serology Check for 25-OH vitamin D, iPTH, phosphorus level. Dose meds/antibiotics for reduced GFR. Avoid fleets enema/magnesium based laxatives. Avoid nephrotoxins/NSAIDs/ iodinated contrast (unless needed emergently) Glycemic control. pt need weight loss, diet, exercise and lifestyle modifications Further work up/management as per primary team Thanks for allowing me to participate in care of your patient. Will follow patient with you. Please call if any Qs. had d/w team Dr Jama Mcwilliams Office: [phone] Chief Complaint; high sugar Reason for consult: Acute Kidney Injury HPI: Pt is a 58 M with hx of diabetes Mellitus (few years), hypertension (years) , A fib on pradaxa, morbid obesity, JOSELINE, CAD, chronic leg edema presented with complaints of confusion and high sugars. renal consult for hyponatremia and Madelyn management. pt also has CKD with baseline cr 1.2-1.4 mg/dL. Denies OTC/herbal meds or NSAIDs No recent iodinated contrast exposure. No obvious episodes of low BP. feels better now ROS: Cardiovascular: No chest pain. Pulmonary: has shortness of breath as per pt Gastrointestinal: denies abdominal pain No nausea. No vomiting. Genitourinary: No pain while urinating. Denies blood in urine. but reports urine incontinence All other negative except as mentioned in HPI Physical Examination: General Appearance: Comfortable, in no acute respiratory distress, co-operative . obese Vitals reviewed and noted as below Head; Atraumatic, normocephalic ENT: no ulcers no thrush. Tongue is midline. Oropharynx: no rash or ulcers. EYES: Pupils are equal, round and reactive to light accommodation. Eye muscles and extraocular movement intact. Sclera is anicteric. Neck; supple no lymphadenopathy, no thyromegaly or bruit Lungs: Normal respiratory rate/effort. Breath sounds bilateral equal and clear Heart: Normal rate. s1s2 normal. No rub or gallop. Extremities: chronic edema with compressive bandages. pt doesn't want his leg to be examined except by his frame hand Neurological: Patient is alert, awake and oriented to person, place and time. No focal deficit. Strength bilateral appropriate and equal Skin: Warm and dry. Normal turgor. No rash. Palpitation: Normal elasticity for age Abdomen: Abdomen is soft. Bowel sounds +. There is no abdominal tenderness, no guarding/rigidity no organomegaly Psych: limited insight and normal affect/mood MSK: no joint tenderness or swelling. Digits and nails normal, no deformity : kidney or bladder not palpable Labs/imaging reviewed. Past medical history, past surgical history, family history, social history, allergy reviewed and noted as below Family hx: no hx of CKD. Rest non-contributory work up: ABG 7.32 pCo2: 55 urine Na 48 osmol 357 UA SG <1.005 A1c 14% Objective - Vital Signs/Intake and Output Vital Signs (last 24 hours): Temp Pulse Resp BP Pulse Ox 97.8 F 62 20 111/77 90 L 04/14/18 21:59 04/14/18 22:13 04/14/18 21:59 04/14/18 22:13 04/14/18 21:59 Intake and Output: 04/15/18 04/15/18 06:59 18:59 Intake Total 1160 Output Total 800 Balance 360 - Medications Medications: Current Medications Aspirin (Aspirin Chewable) 81 mg PO DAILY [facility] Last Admin: 04/14/18 10:36 Dose: 81 mg Dabigatran (Pradaxa) 150 mg PO Q12 [facility] PRN Reason: Protocol Last Admin: 04/14/18 22:13 Dose: 150 mg Dextrose (Dextrose 50% Inj) 0 ml IV STAT PRN; Protocol PRN Reason: Hypoglycemia Protocol Diltiazem HCl (Cardizem Cd) 240 mg PO DAILY [facility] Last Admin: 04/14/18 10:36 Dose: 240 mg Ergocalciferol (Drisdol 50,000 Intl Units Cap) 1 cap PO Q7D [facility] Last Admin: 04/14/18 13:32 Dose: 1 cap Dextrose (Dextrose 5% In Water 1000 Ml) 1,000 mls @ 0 mls/hr IV .Q0M PRN; Protocol; Per Protocol PRN Reason: Hypoglycemia Protocol Sodium Chloride (Sodium Chloride 0.9%) 1,000 mls @ 75 mls/hr IV .[id number] [facility] Insulin Detemir (Levemir) 60 unit SC HS [facility] Last Admin: 04/14/18 22:13 Dose: 60 units Insulin Human Lispro (Humalog) 30 units SC AC [facility] Last Admin: 04/15/18 08:40 Dose: 30 unit Insulin Human Lispro (Humalog Low) 0 units SC ACHS [facility] PRN Reason: Protocol Last Admin: 04/15/18 08:41 Dose: 4 units Levalbuterol HCl (Xopenex) 1.25 mg IH [id number] PRN PRN Reason: Shortness of Breath Lorazepam (Ativan) 2 mg IVP Q6H PRN; Protocol PRN Reason: Symptoms of alcohol withdrawl Last Admin: 04/15/18 05:34 Dose: 2 mg Metoprolol Tartrate (Lopressor) 50 mg PO Q12 [facility] Last Admin: 04/14/18 22:13 Dose: 50 mg Oxycodone/Acetaminophen (Percocet 5/325 Mg Tab) 1 tab PO Q6H PRN PRN Reason: Pain, moderate (4-7) Stop: 04/15/18 15:53 Last Admin: 04/15/18 05:33 Dose: 1 tab Pantoprazole Sodium (Protonix Ec Tab) 40 mg PO ACB [facility] Last Admin: 04/15/18 08:40 Dose: 40 mg Potassium Chloride (K-Dur 20 Meq Er Tab) 20 meq PO BRK [facility] Last Admin: 04/15/18 08:40 Dose: 20 meq Pregabalin (Lyrica) 25 mg PO BID [facility] Last Admin: 04/14/18 17:10 Dose: 25 mg - Labs Labs: 04/15/18 06:00 04/15/18 11:00 PT 20.4 SECONDS (9.4-12.5) H 04/12/18 13:00 INR 1.75 04/12/18 13:00 APTT 65.7 Seconds (25.1-36.5) H 04/12/18 13:00
[2018-04-15] MEDS: diltiaZEM 240 mg/24 Hours CD Cap PO SCH (12:30)
--- NOTE | 2018-04-15 12:52 | CP.PCM.PN ---
<Rossana Sung - Last Filed: 04/16/18 09:27> Subjective - Date & Time of Evaluation Date of Evaluation: 04/15/18 Time of Evaluation: 12:47 - Subjective Subjective: Podiatry Progress Note - Drs. Meadows/Vincent 58M seen and evaluated this AM for bilateral LE edema and stasis ulcerations. Patient resting comfortably, NAD. No acute events overnight. Dressings saturated from weeping LE. Patient reports swelling and pain unchanged since yesterday. Objective - Vital Signs/Intake and Output Vital Signs (last 24 hours): Temp Pulse Resp BP Pulse Ox 97.8 F 62 20 111/77 90 L 04/14/18 21:59 04/14/18 22:13 04/14/18 21:59 04/14/18 22:13 04/14/18 21:59 Intake and Output: 04/15/18 04/15/18 06:59 18:59 Intake Total 1160 Output Total 800 Balance 360 - Medications Medications: Current Medications Aspirin (Aspirin Chewable) 81 mg PO DAILY [facility] Last Admin: 04/14/18 10:36 Dose: 81 mg Dabigatran (Pradaxa) 150 mg PO Q12 [facility] PRN Reason: Protocol Last Admin: 04/15/18 12:30 Dose: 150 mg Dextrose (Dextrose 50% Inj) 0 ml IV STAT PRN; Protocol PRN Reason: Hypoglycemia Protocol Diltiazem HCl (Cardizem Cd) 240 mg PO DAILY [facility] Last Admin: 04/15/18 12:30 Dose: 240 mg Ergocalciferol (Drisdol 50,000 Intl Units Cap) 1 cap PO Q7D [facility] Last Admin: 04/14/18 13:32 Dose: 1 cap Dextrose (Dextrose 5% In Water 1000 Ml) 1,000 mls @ 0 mls/hr IV .Q0M PRN; Protocol; Per Protocol PRN Reason: Hypoglycemia Protocol Sodium Chloride (Sodium Chloride 0.9%) 1,000 mls @ 75 mls/hr IV .[id number] [facility] Insulin Detemir (Levemir) 60 unit SC HS [facility] Last Admin: 04/14/18 22:13 Dose: 60 units Insulin Human Lispro (Humalog) 30 units SC AC [facility] Last Admin: 04/15/18 08:40 Dose: 30 unit Insulin Human Lispro (Humalog Low) 0 units SC ACHS [facility] PRN Reason: Protocol Last Admin: 04/15/18 08:41 Dose: 4 units Levalbuterol HCl (Xopenex) 1.25 mg IH [id number] PRN PRN Reason: Shortness of Breath Lorazepam (Ativan) 2 mg IVP Q6H PRN; Protocol PRN Reason: Symptoms of alcohol withdrawl Last Admin: 04/15/18 05:34 Dose: 2 mg Metoprolol Tartrate (Lopressor) 50 mg PO Q12 [facility] Last Admin: 04/15/18 12:30 Dose: 50 mg Oxycodone/Acetaminophen (Percocet 5/325 Mg Tab) 1 tab PO Q6H PRN PRN Reason: Pain, moderate (4-7) Stop: 04/15/18 15:53 Last Admin: 04/15/18 05:33 Dose: 1 tab Pantoprazole Sodium (Protonix Ec Tab) 40 mg PO ACB [facility] Last Admin: 04/15/18 08:40 Dose: 40 mg Potassium Chloride (K-Dur 20 Meq Er Tab) 20 meq PO BRK [facility] Last Admin: 04/15/18 08:40 Dose: 20 meq Pregabalin (Lyrica) 25 mg PO BID [facility] Last Admin: 04/15/18 12:31 Dose: 25 mg - Labs Labs: 04/15/18 06:00 04/15/18 11:00 PT 20.4 SECONDS (9.4-12.5) H 04/12/18 13:00 INR 1.75 04/12/18 13:00 APTT 65.7 Seconds (25.1-36.5) H 04/12/18 13:00 - Constitutional Appears: Well, Non-toxic, No Acute Distress - Extremities Exam Additional comments: VASC: Nonpalpable DP and PT pulses secondary to chronic indurated edema b/l. No increase in warmth noted. NEURO: Gross sensation absent b/l. DERM: Ulceration noted to lateral aspect of right foot extending down to subcutaneous tissue; no tracking present; no purulence; no fluctance. Multiple small ulcerations to bilatearl legs with malodor. No cellulitis to bilateral lower extremities. Ulceration noted to dorsal aspect of left hallux extending down to subcutaneous tissue. ORTHO: No pain on palpation noted. - Neurological Exam Neurological Exam: Alert, Awake, Oriented x3 - Psychiatric Exam Psychiatric exam: Normal Affect, Normal Mood Assessment and Plan - Assessment and Plan (Free Text) Assessment: 58M with multiple diabetic foot ulcerations and venous stasis ulcerations Plan: Patient seen and evaluated alongside attending, Dr. Kaur Left foot XR (04/14/18): Negative for osteomyelitis, particiularly at great toe Right foot XR (04/14/18): Negative for osteomyelitis Continue local wound care: Maxsorb, nancya boot, kerlix, LARY Bilateral wound cultures obtained, f/u Continue lower extremity elevation Activity: WBAT Podiatry will continue to follow <Andres Kaur - Last Filed: 04/18/18 17:40> Objective - Vital Signs/Intake and Output Vital Signs (last 24 hours): Temp Pulse Resp BP Pulse Ox 98.1 F 70 20 107/64 98 04/16/18 14:00 04/16/18 14:00 04/16/18 14:00 04/16/18 14:00 04/16/18 14:00 - Labs Labs: 04/16/18 06:15 04/16/18 06:30 PT 20.4 SECONDS (9.4-12.5) H 04/12/18 13:00 INR 1.75 04/12/18 13:00 APTT 65.7 Seconds (25.1-36.5) H 04/12/18 13:00 Attending/Attestation - Attestation I have personally seen and examined this patient.: Yes I have fully participated in the care of the patient.: Yes I have reviewed all pertinent clinical information, including history, physical exam and plan: Yes
--- NOTE | 2018-04-15 15:47 | PN ---
Copied To: Erik Alexander MD Attending MD: Erik Alexander MD DATE: 04/15/2018 SUBJECTIVE: The patient is seen earlier today in 574, bed 1. He asking for his foot. He offers no diarrhea, no nausea or vomiting. PHYSICAL EXAMINATION: VITAL SIGNS: Temperature is 97, blood pressure is 111/70, respiratory rate of 20. HEENT: Examination of HEENT is unremarkable. NECK: Supple. LUNGS: Have decreased breath sounds. HEART: Normal S1 and S2. ABDOMEN: Soft. LABORATORY DATA: Laboratory examination reveals 9.9 white count with hemoglobin of 13. Creatinine is 1.5. Procalcitonin 0.13. Urinalysis is noted. Microbiology reveals the blood cultures are negative. ASSESSMENT AND PLAN: A 58-year-old male with morbid obesity, body mass index of 43, diabetes mellitus, diabetic neuropathy, coronary artery disease, congestive heart failure, diastolic and chronic obstructive lung disease, anxiety, chronic lower extremity venous stasis, obstructive sleep apnea with systemic inflammatory response syndrome with acute kidney injury and acute diastolic congestive heart failure on top of chronic congestive heart failure, lower extremity ulcer. Currently, the patient is off of antibiotics. We will discuss with Dr. Meadows. Erik Alexander MD
--- NOTE | 2018-04-15 15:48 | CP.PCM.PN ---
Subjective - Date & Time of Evaluation Date of Evaluation: 04/15/18 Time of Evaluation: 11:30 - Subjective Subjective: Micky Orellana DO PGY-1, [employer] Worker Medicine Progress Note for Dr. Garcia Pt seen and examined at bedside. Denies any acute complaints currently. States he has been able to ambulate around room. Reports no pain in lower extremities bilaterally. Per RN report, pt was a little disoriented overnight and did not know where he was. Objective - Vital Signs/Intake and Output Vital Signs (last 24 hours): Temp Pulse Resp BP Pulse Ox 98.7 F 98 H 20 107/82 96 04/15/18 14:00 04/15/18 14:00 04/15/18 14:00 04/15/18 14:00 04/15/18 14:00 Intake and Output: 04/15/18 04/15/18 06:59 18:59 Intake Total 1160 720 Output Total 800 150 Balance 360 570 - Medications Medications: Current Medications Aspirin (Aspirin Chewable) 81 mg PO DAILY [facility] Last Admin: 04/15/18 10:00 Dose: 81 mg Dabigatran (Pradaxa) 150 mg PO Q12 [facility]EW PRN Reason: Protocol Last Admin: 04/15/18 12:30 Dose: 150 mg Dextrose (Dextrose 50% Inj) 0 ml IV STAT PRN; Protocol PRN Reason: Hypoglycemia Protocol Diltiazem HCl (Cardizem Cd) 240 mg PO DAILY [facility] Last Admin: 04/15/18 12:30 Dose: 240 mg Ergocalciferol (Drisdol 50,000 Intl Units Cap) 1 cap PO Q7D [facility] Last Admin: 04/14/18 13:32 Dose: 1 cap Dextrose (Dextrose 5% In Water 1000 Ml) 1,000 mls @ 0 mls/hr IV .Q0M PRN; Protocol; Per Protocol PRN Reason: Hypoglycemia Protocol Sodium Chloride (Sodium Chloride 0.9%) 1,000 mls @ 75 mls/hr IV .[id number] [facility] Last Admin: 04/15/18 12:42 Dose: 75 mls/hr Insulin Detemir (Levemir) 80 unit SC HS MATTHEW Insulin Human Lispro (Humalog) 30 units SC AC [facility] Last Admin: 04/15/18 12:40 Dose: 30 unit Insulin Human Lispro (Humalog Low) 0 units SC ACHS [facility]THEW PRN Reason: Protocol Last Admin: 04/15/18 12:41 Dose: 4 units Levalbuterol HCl (Xopenex) 1.25 mg IH [id number] PRN PRN Reason: Shortness of Breath Lorazepam (Ativan) 2 mg IVP Q6H PRN; Protocol PRN Reason: Symptoms of alcohol withdrawl Last Admin: 04/15/18 05:34 Dose: 2 mg Metoprolol Tartrate (Lopressor) 50 mg PO Q12 [facility] Last Admin: 04/15/18 12:30 Dose: 50 mg Oxycodone/Acetaminophen (Percocet 5/325 Mg Tab) 1 tab PO Q6H PRN PRN Reason: Pain, moderate (4-7) Stop: 04/15/18 15:53 Last Admin: 04/15/18 12:41 Dose: 1 tab Pantoprazole Sodium (Protonix Ec Tab) 40 mg PO ACB [facility] Last Admin: 04/15/18 08:40 Dose: 40 mg Potassium Chloride (K-Dur 20 Meq Er Tab) 20 meq PO BRK [facility] Last Admin: 04/15/18 08:40 Dose: 20 meq Pregabalin (Lyrica) 25 mg PO BID [facility] Last Admin: 04/15/18 12:31 Dose: 25 mg - Labs Labs: 04/15/18 06:00 04/15/18 11:00 PT 20.4 SECONDS (9.4-12.5) H 04/12/18 13:00 INR 1.75 04/12/18 13:00 APTT 65.7 Seconds (25.1-36.5) H 04/12/18 13:00 - Constitutional Appears: Non-toxic, No Acute Distress - Head Exam Head Exam: ATRAUMATIC, NORMAL INSPECTION - Eye Exam Eye Exam: EOMI, Normal appearance, PERRL - ENT Exam ENT Exam: Mucous Membranes Moist, Normal Oropharynx - Respiratory Exam Respiratory Exam: Clear to Ausculation Bilateral, NORMAL BREATHING PATTERN - Cardiovascular Exam Cardiovascular Exam: REGULAR RHYTHM, +S1, +S2 - GI/Abdominal Exam GI & Abdominal Exam: Soft, Normal Bowel Sounds - Extremities Exam Additional comments: Dressings applied to LEs b/l adjacent to ankles, dry, intact - Back Exam Back Exam: Full ROM, NORMAL INSPECTION - Neurological Exam Neurological Exam: Alert, Awake, CN II-XII Intact, Oriented x3 - Skin Skin Exam: Dry, Intact, Warm Assessment and Plan - Assessment and Plan (Free Text) Assessment: 58 year old male Hx NIDDM, CHF, paroxysmal a-fib (on Pradaxa), non-obstructive COPD, chronic venous stasis ulcers, HTN, JOSELINE, presented with confusion/AMS, ultimately found to have hyperglycemia, MADELYN. Plan: AMS, likely 2/2 CVA vs TIA vs polypharmacy (multiple diuretic use) vs Hyperglycemia (most likely) - On ASA, lipitor - Orthostatic vital signs - Will hold home lasix, metalazone, aldactone. Cardiology consulted for appropriate medication regimen, recs appreciated - Endocrinology consulted. F/u recs. - Seizure precautions, Fall precautions, Neuro checks - Neurology Following: MRI Brain demonstrated no acute findings, f/u EEG results Bilateral feet ulcers - ID consulted, per recs do not want anbx at this time, continue to monitor - Podiatry consulted, recs appreciated MADELYN - Received 500 ml NS bolus in ED - Nephrology consulted, f/u recs - Avoid nephrotoxic agents - WILL HOLD ALL DIURETICS AND ALLOW IVF UNTIL SUGARS IMPROVED Hx of afib - EKG: Afib @ 111 bpm. Qtc 451 ms - C/w home cardizem, metoprolol, pradaxa - Tele d/c'd Hx of diastolic CHF - BNP 890 (prev 2150) - Echo 12/2016: EF 55%. Mildly dilated LV. Mild to moderate concentric LVH. right ventricle moderately dilated. Systolic function of RV moderately reduced. trace to mild AR. Dilated IVC. - MUGA 12/2016 scan showed EF 64%. - CXR persistent moderate cardiomegaly. neg for infiltrates - given lasix 40 mg IV in ED. - on home lasix 40 mg PO BID - c/w home metoprolol. hold home aldactone, metalazone - cardiology consulted. f/u recs Hx of COPD - duoneb inhaler Hx of DM - ISS high, cont to trend fingersticks - Levemir 60 U sc hs matthew - Humalog 30 U sc ac matthew tid - Endocrinology Following; recs appreciated PPX: Protonix, Pradaxa Pt seen, examined with, and plan discussed with Dr. Garcia, attending. Micky Orellana DO PGY-1, [employer] Worker Pager #[phone]
[2018-04-15 16:55] LABS: CALCIUM 8.6 mg/dL (8.4-10.5)
[2018-04-15] MEDS ORDERED: Insulin Detemir 100 units/ml Vial (Levemir) SC SCH (22:00)
[2018-04-16 00:15] LABS: CALCIUM 8.6 mg/dL (8.4-10.5)
[2018-04-16] MEDS: oxyCODONE 10 mg Immediate Release Tab PO ONE ×2 (03:45→03:48)
[2018-04-16] MEDS ORDERED: Oxycodone/Acetaminophen 10/325 mg Tab PO STA (03:53)
--- NOTE | 2018-04-16 07:11 | CP.PCM.PN ---
Subjective - Date & Time of Evaluation Date of Evaluation: 04/16/18 Time of Evaluation: 06:15 - Subjective Subjective: awake, lying in bed, denies shortness of breath, feels better Reason for consultation and follow up: Cardiac evaluation for shortness of breath when climbing the stairs,history of paroxysmal atrial fibrillation on Pradaxa,coronary artery disease with stents,COPD, NIDDM, JOSELINE, Seen and examined by me and Dr. Vargas Objective - Vital Signs/Intake and Output Vital Signs (last 24 hours): Temp Pulse Resp BP Pulse Ox 97.5 F L 68 20 133/82 93 L 04/15/18 21:32 04/15/18 22:45 04/15/18 21:32 04/15/18 22:45 04/15/18 21:32 Intake and Output: 04/16/18 04/16/18 06:59 18:59 Intake Total 400 Output Total 1300 Balance -900 - Medications Medications: Current Medications Aspirin (Aspirin Chewable) 81 mg PO DAILY [facility] Last Admin: 04/15/18 10:00 Dose: 81 mg Dabigatran (Pradaxa) 150 mg PO Q12 SHAHEED PRN Reason: Protocol Last Admin: 04/15/18 22:46 Dose: 150 mg Dextrose (Dextrose 50% Inj) 0 ml IV STAT PRN; Protocol PRN Reason: Hypoglycemia Protocol Diltiazem HCl (Cardizem Cd) 240 mg PO DAILY [facility] Last Admin: 04/15/18 12:30 Dose: 240 mg Ergocalciferol (Drisdol 50,000 Intl Units Cap) 1 cap PO Q7D [facility] Last Admin: 04/14/18 13:32 Dose: 1 cap Dextrose (Dextrose 5% In Water 1000 Ml) 1,000 mls @ 0 mls/hr IV .Q0M PRN; Protocol; Per Protocol PRN Reason: Hypoglycemia Protocol Sodium Chloride (Sodium Chloride 0.9%) 1,000 mls @ 75 mls/hr IV .[id number] [facility] Last Admin: 04/15/18 12:42 Dose: 75 mls/hr Insulin Detemir (Levemir) 80 unit SC HS [facility] Last Admin: 04/15/18 22:41 Dose: 80 units Insulin Human Lispro (Humalog) 30 units SC AC [facility] Last Admin: 04/15/18 18:28 Dose: 30 unit Insulin Human Lispro (Humalog Low) 0 units SC ACHS SHAHEED PRN Reason: Protocol Last Admin: 04/15/18 22:40 Dose: 2 units Levalbuterol HCl (Xopenex) 1.25 mg IH [id number] PRN PRN Reason: Shortness of Breath Lorazepam (Ativan) 2 mg IVP Q6H PRN; Protocol PRN Reason: Symptoms of alcohol withdrawl Last Admin: 04/15/18 05:34 Dose: 2 mg Metoprolol Tartrate (Lopressor) 50 mg PO Q12 [facility] Last Admin: 04/15/18 22:45 Dose: 50 mg Pantoprazole Sodium (Protonix Ec Tab) 40 mg PO ACB [facility] Last Admin: 04/15/18 08:40 Dose: 40 mg Potassium Chloride (K-Dur 20 Meq Er Tab) 20 meq PO BRK [facility] Last Admin: 04/15/18 08:40 Dose: 20 meq Pregabalin (Lyrica) 25 mg PO BID [facility] Last Admin: 04/15/18 18:31 Dose: 25 mg - Labs Labs: 04/15/18 06:00 04/15/18 23:30 PT 20.4 SECONDS (9.4-12.5) H 04/12/18 13:00 INR 1.75 04/12/18 13:00 APTT 65.7 Seconds (25.1-36.5) H 04/12/18 13:00 - Constitutional Appears: No Acute Distress - Eye Exam Eye Exam: Normal appearance - ENT Exam ENT Exam: Mucous Membranes Moist - Respiratory Exam Respiratory Exam: Decreased Breath Sounds, NORMAL BREATHING PATTERN - Cardiovascular Exam Cardiovascular Exam: +S1, +S2 - GI/Abdominal Exam GI & Abdominal Exam: Soft, Normal Bowel Sounds - Extremities Exam Additional comments: bilateral legs sampson wrapped 3-4+ edema - Neurological Exam Neurological Exam: Alert, Awake, Oriented x3 - Psychiatric Exam Psychiatric exam: Normal Affect - Skin Skin Exam: Dry, Warm Assessment and Plan - Assessment and Plan (Free Text) Assessment: A 58 year old male morbidly obese, who came in to the ER due to not feeling well. Blood glucose in ER was 638.Uncontrolled blood glucose.Insulin given in ER. He claimed to have shortness of breath when climbing stairs. History of paroxysmal atrial fibrillation on Pradaxa,COPD,coronary artery disease with stents, non-insulin diabetes mellitus,obstructive sleep apnea,hypertension, chronic venous stasis on both legs, former smoker, drinks beer everyday.Denies shortness of breath lying in bed. Uncontrolled diabetes mellitus. Chest X ray normal,cardiomegaly.Exacerbation of COPD.12/17/16- ECHO-Mild to moderate concentric LV hyperthropy, LVEF 55%, Moderately dilated RV, Moderately reduced systolic RV, Moderate AR, Trace MR/TR.12/18/16- [facility]uga scan-RV normal wall motion, LV normal, LVEF 64% Plan: Feels better today Heart rate and blood pressure controlled Cardiac status stable Uncontrolled diabetes/insulin resistant Followed up by Endocrine Followed by Podiatry for leg edema/cellilutis On ASA 81 mg daily,Lopressor 50 mg every 12 hours,Cardizem CD 240 mg daily, Pradaxa 150 mg every 12 hours for chronic atrial fibrillation, rate controlled ID on consult Pulmonary and Renal on consult Continue current medications Continue current treatment Will follow up Plan and treatment discussed with Dr. Vargas
[2018-04-16 07:51] LABS: ALB/GLOB RATIO 1.1 (1.1-1.8); ALBUMIN 3.5 g/dL (3.0-4.8)
[2018-04-16 07:52] LABS: BASO # 0.08 K/mm3 (0.0-2.0); BASO % 0.7 % (0.0-3.0); EOS # 0.3 (0.0-0.7); EOS % 2.6 % (1.5-5.0); GRAN # 8.17 (1.4-6.5); HEMOGLOBIN 12.1 g/dL (14.0-18.0); LYMPH # 1.5 (1.2-3.4); LYMPH % 13.9 % (22.0-35.0); MEAN CELL VOLUME 90.9 fl (80.0-105.0); MEAN CORPUSCULAR HEMOGLOBIN 30.7 pg (25.0-35.0); MEAN CORPUSCULAR HGB CONC 33.8 g/dl (31.0-37.0); MEAN PLATELET VOLUME 9.5 fl (7.0-11.0); MONO # 0.7 (0.1-0.6); MONO % 6.8 % (1.0-6.0); RBC 3.94 10^6/uL (3.5-6.1); RED CELL DISTRIBUTION WIDTH 14.3 % (11.5-14.5); WHITE BLOOD COUNT 10.8 10^3/ul (4.5-11.0)
[2018-04-16] MEDS: Potassium Chloride 20 mEq ER Tab PO SCH (09:14)
[2018-04-16] MEDS: diltiaZEM 240 mg/24 Hours CD Cap PO SCH (09:14)
[2018-04-16] MEDS: Pantoprazole 40 mg EC Tab PO SCH (09:14)
[2018-04-16] MEDS: Insulin Lispro 1 UNITS/0.01 ML SC SCH ×2 (09:24→12:04)
[2018-04-16] MEDS: Insulin Lispro (humaLOG) LOW Coverage SC SCH ×2 (09:25→12:04)
--- NOTE | 2018-04-16 11:51 | CP.PCM.PN ---
Subjective - Date & Time of Evaluation Date of Evaluation: 04/16/18 Time of Evaluation: 11:49 - Subjective Subjective: Nephrology Consultation Note: Assessment: Stable Acute Kidney Injury (N17.9) likely due to pre-renal state due to hyperglycemia, osmotic diuresis and oral loop + thiazide diuretics: improved psuedohyponatremia due to hyperglycemia due to uncontrolled DM Diabetic chronic Kidney Disease (E11.22) Hypertensive Chronic Kidney Disease (I12.9) Chronic Kidney Disease (N18.3) Stage 3 with ? mg proteinuria (R80.9) likely due to DM/HTN A fib on pradaxa, morbid obesity, JOSELINE, CAD, chronic leg edema chronic respi acidosis with renal compensation Plan No acute need for renal replacement therapy at this time. Hypertension control with meds as ordered. Maintain hemodynamics stable. Avoid hypotension. Patient not on ACEI/ARB due to recent MADELYN. can resume aldactone Monitor Input/Output, daily weights and renal function with basic metabolic panel cd/c IVF. can resume loop diuretics soon but to avoid thiazides (such as hctz or metolazone) for now due to hyponatremia endocrine, neuro and cardiology following started weekly Vit D Check urine analysis, spot protein/creatinine, albumin/creatinine ratio renal and bladder sonogram Check HIV/Hep B and Hep C serology Check for 25-OH vitamin D, iPTH, phosphorus level. Dose meds/antibiotics for reduced GFR. Avoid fleets enema/magnesium based laxatives. Avoid nephrotoxins/NSAIDs/ iodinated contrast (unless needed emergently) Glycemic control. pt need weight loss, diet, exercise and lifestyle modifications Further work up/management as per primary team Thanks for allowing me to participate in care of your patient. Please call if any Qs. had d/w team Dr Jama Mcwilliams Office: [phone] Chief Complaint; high sugar Reason for consult: Acute Kidney Injury HPI: Pt is a 58 M with hx of diabetes Mellitus (few years), hypertension (years) , A fib on pradaxa, morbid obesity, JOSELINE, CAD, chronic leg edema presented with complaints of confusion and high sugars. renal consult for hyponatremia and Madelyn management. pt also has CKD with baseline cr 1.2-1.4 mg/dL. Denies OTC/herbal meds or NSAIDs No recent iodinated contrast exposure. No obvious episodes of low BP. feels better now ROS: no new complaints. feels same. upset about need for rehab. rather would want to go home Cardiovascular: No chest pain. Pulmonary: has shortness of breath as per pt Gastrointestinal: denies abdominal pain No nausea. No vomiting. Genitourinary: No pain while urinating. Denies blood in urine. but reports urine incontinence All other negative except as mentioned in HPI Physical Examination: General Appearance: Comfortable, in no acute respiratory distress, co-operative . obese Vitals reviewed and noted as below Head; Atraumatic, normocephalic ENT: no ulcers no thrush. Tongue is midline. Oropharynx: no rash or ulcers. EYES: Pupils are equal, round and reactive to light accommodation. Eye muscles and extraocular movement intact. Sclera is anicteric. Neck; supple no lymphadenopathy, no thyromegaly or bruit Lungs: Normal respiratory rate/effort. Breath sounds bilateral equal and clear Heart: Normal rate. s1s2 normal. No rub or gallop. Extremities: chronic edema with compressive bandages. 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 No focal deficit. Strength bilateral appropriate and equal Skin: Warm and dry. Normal turgor. No rash. Palpitation: Normal elasticity for age Abdomen: Abdomen is soft. Bowel sounds +. There is no abdominal tenderness, no guarding/rigidity no organomegaly Psych: limited insight and normal affect/mood MSK: no joint tenderness or swelling. Digits and nails normal, no deformity : kidney or bladder not palpable Labs/imaging reviewed. Past medical history, past surgical history, family history, social history, allergy reviewed and noted as below Family hx: no hx of CKD. Rest non-contributory work up: ABG 7.32 pCo2: 55 urine Na 48 osmol 357 UA SG <1.005 A1c 14% Objective - Vital Signs/Intake and Output Vital Signs (last 24 hours): Temp Pulse Resp BP Pulse Ox 97.8 F 66 20 138/84 96 04/16/18 06:00 04/16/18 06:00 04/16/18 06:00 04/16/18 06:00 04/16/18 06:00 Intake and Output: 08/29/18 08/29/18 06:59 18:59 Intake Total 400 Output Total 1300 Balance -900 - Medications Medications: Current Medications Aspirin (Aspirin Chewable) 81 mg PO DAILY [facility] Last Admin: 04/16/18 09:14 Dose: 81 mg Dabigatran (Pradaxa) 150 mg PO Q12 [facility]HEED PRN Reason: Protocol Last Admin: 04/16/18 09:15 Dose: 150 mg Dextrose (Dextrose 50% Inj) 0 ml IV STAT PRN; Protocol PRN Reason: Hypoglycemia Protocol Diltiazem HCl (Cardizem Cd) 240 mg PO DAILY [facility] Last Admin: 04/16/18 09:14 Dose: 240 mg Ergocalciferol (Drisdol 50,000 Intl Units Cap) 1 cap PO Q7D [facility] Last Admin: 04/14/18 13:32 Dose: 1 cap Dextrose (Dextrose 5% In Water 1000 Ml) 1,000 mls @ 0 mls/hr IV .Q0M PRN; Protocol; Per Protocol PRN Reason: Hypoglycemia Protocol Insulin Detemir (Levemir) 80 unit SC HS [facility] Last Admin: 04/15/18 22:41 Dose: 80 units Insulin Human Lispro (Humalog) 30 units SC AC [facility] Last Admin: 04/16/18 09:24 Dose: 30 unit Insulin Human Lispro (Humalog Low) 0 units SC ACHS [facility]HEED PRN Reason: Protocol Last Admin: 04/16/18 09:25 Dose: 5 units Levalbuterol HCl (Xopenex) 1.25 mg IH [id number] PRN PRN Reason: Shortness of Breath Lorazepam (Ativan) 2 mg IVP Q6H PRN; Protocol PRN Reason: Symptoms of alcohol withdrawl Last Admin: 04/15/18 05:34 Dose: 2 mg Metoprolol Tartrate (Lopressor) 50 mg PO Q12 [facility] Last Admin: 04/16/18 09:14 Dose: 50 mg Pantoprazole Sodium (Protonix Ec Tab) 40 mg PO ACB [facility] Last Admin: 04/16/18 09:14 Dose: 40 mg Potassium Chloride (K-Dur 20 Meq Er Tab) 20 meq PO BRK [facility] Last Admin: 04/16/18 09:14 Dose: 20 meq Pregabalin (Lyrica) 25 mg PO BID [facility] Last Admin: 04/16/18 09:15 Dose: 25 mg - Labs Labs: 04/16/18 06:15 04/16/18 06:30 PT 20.4 SECONDS (9.4-12.5) H 04/12/18 13:00 INR 1.75 04/12/18 13:00 APTT 65.7 Seconds (25.1-36.5) H 04/12/18 13:00
[2018-04-16] MEDS ORDERED: Insulin Lispro 1 UNITS/0.01 ML SC ONE (11:56)
[2018-04-16] MEDS ORDERED: Sodium Chloride 0.9% 1,000 ML IV SCH (12:30)
[2018-04-16] MEDS ORDERED: Oxycodone/Acetaminophen 5/325 mg Tab PO PRN (13:13)
--- NOTE | 2018-04-16 14:45 | CP.PCM.PN ---
Subjective - Date & Time of Evaluation Date of Evaluation: 04/16/18 Time of Evaluation: 14:40 - Subjective Subjective: Podiatry Progress Note - Drs. Meadows/Vincent 58M seen and evaluated this AM for bilateral LE edema and stasis ulcerations. Patient hemodynamically stable and NAD. No acute events overnight. Dressings to bilateral LE remain clean/dry/intact. No pain to LE noted. Denies n/v/d, no f/c. Objective - Vital Signs/Intake and Output Vital Signs (last 24 hours): Temp Pulse Resp BP Pulse Ox 97.8 F 66 20 138/84 96 04/16/18 06:00 04/16/18 06:00 04/16/18 06:00 04/16/18 06:00 04/16/18 06:00 Intake and Output: 04/16/18 04/16/18 06:59 18:59 Intake Total 400 720 Output Total 1300 2650 Balance -900 -1930 - Medications Medications: Current Medications Aspirin (Aspirin Chewable) 81 mg PO DAILY [facility] Last Admin: 04/16/18 09:14 Dose: 81 mg Atorvastatin Calcium (Lipitor) 20 mg PO DIN [facility] Dabigatran (Pradaxa) 150 mg PO Q12 [facility]HEED PRN Reason: Protocol Last Admin: 04/16/18 09:15 Dose: 150 mg Dextrose (Dextrose 50% Inj) 0 ml IV STAT PRN; Protocol PRN Reason: Hypoglycemia Protocol Diltiazem HCl (Cardizem Cd) 240 mg PO DAILY [facility] Last Admin: 04/16/18 09:14 Dose: 240 mg Ergocalciferol (Drisdol 50,000 Intl Units Cap) 1 cap PO Q7D [facility] Last Admin: 04/14/18 13:32 Dose: 1 cap Dextrose (Dextrose 5% In Water 1000 Ml) 1,000 mls @ 0 mls/hr IV .Q0M PRN; Protocol; Per Protocol PRN Reason: Hypoglycemia Protocol Sodium Chloride (Sodium Chloride 0.9%) 1,000 mls @ 75 mls/hr IV .[id number] [facility] Insulin Detemir (Levemir) 80 unit SC HS [facility] Last Admin: 04/15/18 22:41 Dose: 80 units Insulin Human Lispro (Humalog) 30 units SC AC [facility] Last Admin: 04/16/18 12:04 Dose: 30 unit Insulin Human Lispro (Humalog Low) 0 units SC [facility] PRN Reason: Protocol Last Admin: 04/16/18 12:04 Dose: Not Given Insulin Human Lispro (Humalog Med) 0 units SC [facility] PRN Reason: Protocol Levalbuterol HCl (Xopenex) 1.25 mg IH [id number] PRN PRN Reason: Shortness of Breath Lorazepam (Ativan) 2 mg IVP Q6H PRN; Protocol PRN Reason: Symptoms of alcohol withdrawl Last Admin: 04/15/18 05:34 Dose: 2 mg Metoprolol Tartrate (Lopressor) 50 mg PO Q12 [facility] Last Admin: 04/16/18 09:14 Dose: 50 mg Oxycodone/Acetaminophen (Percocet 5/325 Mg Tab) 1 tab PO Q6H PRN PRN Reason: Pain, severe (8-10) Stop: 04/19/18 13:14 Pantoprazole Sodium (Protonix Ec Tab) 40 mg PO ACB [facility] Last Admin: 04/16/18 09:14 Dose: 40 mg Potassium Chloride (K-Dur 20 Meq Er Tab) 20 meq PO BRK [facility] Last Admin: 04/16/18 09:14 Dose: 20 meq Pregabalin (Lyrica) 25 mg PO BID [facility] Last Admin: 04/16/18 09:15 Dose: 25 mg - Labs Labs: 04/16/18 06:15 04/16/18 06:30 PT 20.4 SECONDS (9.4-12.5) H 04/12/18 13:00 INR 1.75 04/12/18 13:00 APTT 65.7 Seconds (25.1-36.5) H 04/12/18 13:00 - Constitutional Appears: Well, Non-toxic, No Acute Distress - Extremities Exam Additional comments: Dressings to bilateral lower extremities clean/dry/intact with no strikethrough present NVSI to digits x10 Digital ROM present - Neurological Exam Neurological Exam: Alert, Awake, Oriented x3 - Psychiatric Exam Psychiatric exam: Normal Affect, Normal Mood Assessment and Plan - Assessment and Plan (Free Text) Assessment: 58M with multiple diabetic foot ulcerations and venous stasis ulcerations Plan: Patient seen and evaluated Discussed with attending, Dr. Kaur Left foot XR (04/14/18): Negative for osteomyelitis, particularly at great toe Right foot XR (04/14/18): Negative for osteomyelitis Dressing maintained; local wound care: john Robles kerlix, ACE Bilateral wound cultures pending Continue lower extremity elevation Activity: WBAT Podiatry will continue to follow
[2018-04-16 14:50] VITALS: BP 107/64; PULSE 70; TEMP 98.1; O2SAT 98
[2018-04-16] MEDS ORDERED: Insulin Lispro (humaLOG) MEDIUM Coverage SC SCH (16:30)
--- NOTE | 2018-04-16 17:47 | CP.PCM.DIS ---
Provider - Provider Date of Admission: 04/13/18 11:26 Attending physician: Cora Garcia MD Primary care physician: Dr. Matthew Leiva Consults: ID - [facility] - [facility] - [facility] - [facility] - Poppy Endo - Cam Time Spent in preparation of Discharge (in minutes): 45 Hospital Course - Lab Results Lab Results: Micro Results 04/15/18 12:04 Leg - Left Gram Stain - Final 04/15/18 12:04 Leg - Right Gram Stain - Final Most Recent Lab Values WBC 10.8 10^3/ul (4.5-11.0) 04/16/18 06:15 RBC 3.94 10^6/uL (3.5-6.1) 04/16/18 06:15 Hgb 12.1 g/dL (14.0-18.0) L 04/16/18 06:15 Hct 35.8 % (42.0-52.0) L 04/16/18 06:15 MCV 90.9 fl (80.0-105.0) 04/16/18 06:15 MCH 30.7 pg (25.0-35.0) 04/16/18 06:15 MCHC 33.8 g/dl (31.0-37.0) 04/16/18 06:15 RDW 14.3 % (11.5-14.5) 04/16/18 06:15 Plt Count 328 10^3/uL (120.0-450.0) 04/16/18 06:15 MPV 9.5 fl (7.0-11.0) 04/16/18 06:15 Gran % 76.0 % (50.0-68.0) H 04/16/18 06:15 Lymph % (Auto) 13.9 % (22.0-35.0) L 04/16/18 06:15 [place] % (Auto) 6.8 % (1.0-6.0) H 04/16/18 06:15 Eos % (Auto) 2.6 % (1.5-5.0) 04/16/18 06:15 Baso % (Auto) 0.7 % (0.0-3.0) 04/16/18 06:15 Gran # 8.17 (1.4-6.5) H 04/16/18 06:15 Lymph # (Auto) 1.5 (1.2-3.4) 04/16/18 06:15 [place] # (Auto) 0.7 (0.1-0.6) H 04/16/18 06:15 Eos # (Auto) 0.3 (0.0-0.7) 04/16/18 06:15 Baso # (Auto) 0.08 K/mm3 (0.0-2.0) 04/16/18 06:15 ESR 43 mm/hr (0.00-15.0) H 04/12/18 16:00 PT 20.4 SECONDS (9.4-12.5) H 04/12/18 13:00 INR 1.75 04/12/18 13:00 APTT 65.7 Seconds (25.1-36.5) H 04/12/18 13:00 pCO2 24 mm/Hg (35-45) L 04/12/18 14:00 pO2 26 mm/Hg (30-55) L 04/13/18 01:40 HCO3 17.1 mmol/L (21-28) L 04/12/18 14:00 ABG pH 7.46 (7.35-7.45) H 04/12/18 14:00 ABG Total CO2 17.8 mmol.L (22-28) L 04/12/18 14:00 ABG O2 Saturation 99.8 % (95-98) H 04/12/18 14:00 ABG O2 Content 13.5 ML/dl (15-23) L 04/12/18 14:00 ABG Base Excess -5.6 mmol/L (-2.0-3.0) L 04/12/18 14:00 ABG Hemoglobin 9.6 g/dL (11.7-17.4) L 04/12/18 14:00 ABG Carboxyhemoglobin 1.9 % (0.5-1.5) H 04/12/18 14:00 POC ABG HHb (Measured) 0.2 % (0-5) 04/12/18 14:00 ABG Methemoglobin 0.8 % (0.0-3.0) 04/12/18 14:00 ABG O2 Capacity 13.5 mL/dl (16-24) L 04/12/18 14:00 VBG pH 7.32 (7.32-7.43) 04/13/18 01:40 VBG pCO2 55.0 (40-60) 04/13/18 01:40 VBG HCO3 28.3 mmol/l (21-28) H 04/13/18 01:40 VBG Total CO2 30.0 mmol.L (22-28) H 04/13/18 01:40 VBG O2 Sat (Calc) 51.6 % (40-65) 04/13/18 01:40 VBG Base Excess 1.1 mmol/L (0.0-2.0) 04/13/18 01:40 VBG Potassium 4.2 mmol/L (3.6-5.2) 04/13/18 01:40 Hgb O2 Saturation 97.0 % (95.0-98.0) 04/12/18 14:00 Sodium 125.0 mmol/L (132-148) L 04/13/18 01:40 Chloride 88.0 mmol/L (98-107) L 04/13/18 01:40 Glucose 450 mg/dl (75-110) H* 04/13/18 01:40 Lactate 1.9 mmol/L (0.7-2.1) 04/13/18 01:40 FiO2 21.0 % 04/13/18 01:40 Sodium 128 mmol/L (132-148) L 04/16/18 06:30 Potassium 4.4 mmol/L (3.6-5.0) 04/16/18 06:30 Chloride 91 mmol/L (98-107) L 04/16/18 06:30 Carbon Dioxide 28 mmol/L (21-33) 04/16/18 06:30 Anion Gap 13 (10-20) 04/16/18 06:30 BUN 34 mg/dL (7-21) H 04/16/18 06:30 Creatinine 1.5 mg/dl (0.8-1.5) 04/16/18 06:30 Est GFR ( Amer) 58 04/16/18 06:30 Est GFR (Non-Af Amer) 48 04/16/18 06:30 POC Glucose (mg/dL) 153 mg/dL (65-110) H 04/16/18 16:14 Random Glucose 357 mg/dL (70-110) H* D 04/16/18 06:30 Hemoglobin A1c 14.1 % (4.2-6.5) H 04/13/18 06:30 Serum Osmolality 299 mosm/kg (272-300) 04/13/18 06:30 Calcium 8.0 mg/dL (8.4-10.5) L 04/16/18 06:30 Phosphorus 3.1 mg/dL (2.5-4.5) 04/13/18 06:30 Magnesium 2.4 mg/dL (1.7-2.2) H 04/13/18 06:30 Total Bilirubin 0.5 mg/dL (0.2-1.3) 04/16/18 06:30 AST 38 U/L (17-59) 04/16/18 06:30 ALT 30 U/L (7-56) 04/16/18 06:30 Alkaline Phosphatase 70 U/L (38-126) 04/16/18 06:30 Ammonia < 9 umol/L (9-33) L 04/12/18 15:55 Lactate Dehydrogenase 433 U/L (333-699) 04/12/18 13:00 Total Creatine Kinase 119 U/L (35-230) 04/12/18 13:00 Troponin I < 0.01 ng/mL 04/13/18 06:30 C-Reactive Protein 35.00 mg/L (0.0-9.9) H 04/12/18 16:00 NT-Pro-B Natriuret Pep 890 pg/mL (0-450) H 04/12/18 13:00 Total Protein 6.7 g/dL (5.8-8.3) 04/16/18 06:30 Albumin 3.5 g/dL (3.0-4.8) 04/16/18 06:30 Globulin 3.2 gm/dL 04/16/18 06:30 Albumin/Globulin Ratio 1.1 (1.1-1.8) 04/16/18 06:30 Triglycerides 130 mg/dL (35-160) 04/13/18 06:30 Cholesterol 144 mg/dL (130-200) 04/13/18 06:30 LDL Cholesterol Direct 99 mg/dL (0-129) 04/13/18 06:30 HDL Cholesterol 23 mg/dL (29-60) L 04/13/18 06:30 25-OH Vitamin D Total 21.9 NG/ML (30.0-100.0) L 04/14/18 05:30 Procalcitonin 0.13 NG/ML (0.19-0.49) L 04/12/18 16:00 TSH 3rd Generation 2.67 mIU/mL (0.46-4.68) 04/13/18 06:30 PTH Intact Whole Molec 35 pg/mL (14-64) 04/13/18 06:30 Venous Blood Potassium 4.2 mmol/L (3.6-5.2) 04/13/18 01:40 Urine Color Light yellow (YELLOW) 04/12/18 13:00 Urine Appearance Clear (CLEAR) 04/12/18 13:00 Urine pH 6.0 (4.7-8.0) 04/12/18 13:00 Ur Specific [place] <= 1.005 (1.005-1.035) 04/12/18 13:00 Urine Protein Negative mg/dL (<30 mg/dL) 04/12/18 13:00 Urine Glucose (UA) 500 mg/dL (NEGATIVE) H 04/12/18 13:00 Urine Ketones Negative mg/dL (NEGATIVE) 04/12/18 13:00 Urine Blood Trace-intact (NEGATIVE) H 04/12/18 13:00 Urine Nitrate Negative (NEGATIVE) 04/12/18 13:00 Urine Bilirubin Negative (NEGATIVE) 04/12/18 13:00 Urine Urobilinogen 0.2 E.U./dL (<1 E.U./dL) 04/12/18 13:00 Ur Leukocyte Esterase Negative Sujata/uL (NEGATIVE) 04/12/18 13:00 Urine RBC Negative /hpf (0-2) 04/12/18 13:00 Urine WBC 0 - 2 /hpf (0-6) 04/12/18 13:00 Ur Epithelial Cells 0 - 2 /hpf (0-5) 04/12/18 13:00 Urine Osmolality 357 mosm/kg (300-1000) 04/12/18 18:30 Ur Random Creatinine 28 mg/dL (20-370) 04/13/18 08:00 U Random Total Protein 233 mg/g creat (22-128) H 08/26/18 08:00 Ur Random Sodium 48 meq/L 04/12/18 18:30 Ur Random Urea Nitrogn 195 mg/dL 04/12/18 18:30 Urine Total Volume 1.2 mg/dL 04/13/18 08:00 Microalb/Creat Ratio 44 (<30) H 04/13/18 08:00 Urine Chloride 78 mmol/L (32-290) 04/12/18 18:30 Urine Opiates Screen Positive (NEGATIVE) H 04/12/18 18:30 Urine Methadone Screen Negative (NEGATIVE) 04/12/18 18:30 Ur Barbiturates Screen Negative (NEGATIVE) 04/12/18 18:30 Ur Phencyclidine Scrn Negative (NEGATIVE) 04/12/18 18:30 Ur Amphetamines Screen Negative (NEGATIVE) 04/12/18 18:30 U Benzodiazepines Scrn Negative (NEGATIVE) 04/12/18 18:30 U Oth Cocaine Metabols Negative (NEGATIVE) 04/12/18 18:30 U Cannabinoids Screen Negative (NEGATIVE) 04/12/18 18:30 Alcohol, Quantitative < 10 mg/dL (0-10) 04/12/18 13:00 - Hospital Course Hospital Course: Micky Orellana DO PGY-1, [employer] [facility] Discharge Summary 58 year old male with PMH PMH NIDDM, paroxysmal atrial fibrillation (on Pradaxa) , non-obstructive coronary artery disease, chronic venous stasis ulcers, HTN, COPD and JOSELINE, who presented on 04/12/18 for confusion for past few days. Patient is a poor historian. Spoke with daughter and [id number] over the phone. They stated that they had talked to patient last week or so. Patient was complaining of "dizziness and forgetfulness." As per patient, he had [place], and "just didnt feel well." So he decided to come to ED. Patient reported chronic SOB, orthopnea (sleeps on 3 pillows). Currently, patient denied cp, diaphoresis, dizziness, nausea, vomiting, headache, fevers, chills, neck pain, blurry vision, cough, wheezing, abdominal pain, urinary symptoms, leg swelling. In ED, patient's EKG showed afib HR 111. BG 638, UA negative for ketones, hemodynamically stable. Given insulin 10 units iV, lasix 40 IV, 500cc NS bolus in ED. 12 point ROS not obtainable as patient is AMS/poor historian. Ct head was negative for acute findings, showed chronic microangiopathic changes. MRI brain showed no acute findings. Duplex lower extremity demonstrated no evidence for DVT. Foot XRs b/l demonstrated no osteomyelitis, but pt has hx of chronic venous leg ulcers, that were treated by podiatry. Pt was initially placed on vancomycin for broad-spectrum coverage while obtaining blood and wound cultures, but as per ID (Dr. Alexander), pt did not clinically show signs of cellulitis, and did not need to be placed on antibiotics until cultures came back. Nephro was consulted (Dr. Mcwilliams) and stated no need for renal replacement therapy, MADELYN on admission was improved after fluid administration. Pt was recommended for SRINIVAS as per PT, however pt's insurance denied admission, thus pt was sent home on 04/16/18 in stable medical condition. Pt's sugars were uncontrolled inpatient, had hyperglycemia on admission, Dr. Salvador recommended adjusting basal and pre-meal insulin, and pt was medically optimized prior to discharge. Pt was instructed to follow-up with PCP (Dr. Castro) within 1 week of discharge and with Podiatry (Dr. Meadows) in wound clinic within 1 week of discharge. Pt was instructed to resume home medications and instructed over importance of medication compliance. Discharge Exam - Head Exam Head Exam: ATRAUMATIC, NORMAL INSPECTION - Eye Exam Eye Exam: EOMI, Normal appearance, PERRL - ENT Exam ENT Exam: Mucous Membranes Moist, Normal Oropharynx - Respiratory Exam Respiratory Exam: Clear to PA & Lateral, NORMAL BREATHING PATTERN, UNREMARKABLE - Cardiovascular Exam Cardiovascular Exam: REGULAR RHYTHM, +S1, +S2 - GI/Abdominal Exam GI & Abdominal Exam: Normal Bowel Sounds, Soft, Unremarkable - Extremities Exam Extremities exam: full ROM, normal capillary refill, pedal pulses present - Neurological Exam Neurological exam: Alert, CN II-XII Intact, Normal Gait, Oriented x3 - Psychiatric Exam Psychiatric exam: Normal Affect, Normal Mood - Skin Skin Exam: Dry, Intact, Normal Color, Warm Discharge Plan - Discharge Medications Prescriptions: Simvastatin 10 mg PO DIN #30 tablet - Follow Up Plan Condition: STABLE Disposition: HOME/ ROUTINE Instructions: Diabetes and Diet, Heart Failure (DC), Cellulitis (DC), Ascites ( DC) Additional Instructions: Please make sure to follow up with Dr. Meadows, your risk control director, regarding your bilateral foot ulcers Please follow up with the wound clinic within one week. Should your symptoms recur or worsen please return to the ED. Referrals: Matthew Leiva JD, MD [Family Provider] - Jolene Meadows DPM [Staff Provider] -
--- NOTE | 2018-04-16 19:47 | PN ---
Copied To: Chelsea Salvador MD Attending MD: Chelsea Salvador MD DATE: 04/16/2018 ENDOCRINOLOGY FOLLOWUP NOTE LOCATION: Room 574. This is a 58-year-old male with recent uncontrolled type 2 insulin-requiring diabetes with persistent hyperglycemic accelerations as noted overnight and the rug measurer glucose at 02:00 a.m. was actually 381 mg/dL. His latest chemistry showed a BUN of 34, sodium 128, potassium 4.4, chloride 91, CO2 is 28, glucose is 357 and creatinine is 1.5. So at this time, we will continue the modified basal and bolus insulin regimen as given with Levemir given as 80 units subcu at bedtime daily as ordered. We will also continue the Humalog given as 30 units subcu t.i.d. before meals as ordered. We will, however, be adding oral hypoglycemic therapy to hopefully lower the insulin requirements thereof. We will add Januvia given as 100 mg once daily in the morning as ordered. We will also consider the addition of glipizide given as 10 mg b.i.d. as ordered. We will titrate incrementally as indicated to optimize metabolic control. We will obtain serial chemistries and supplement accordingly as needed. We will follow. Chelsea Salvador MD
--- NOTE | 2018-04-17 01:29 | PN ---
Copied To: Erik Alexander MD Attending MD: Erik Alexander MD DATE: 04/16/2018 SUBJECTIVE: The patient was seen early this morning in 574, bed 1. Doing well. No fevers, no chills, no nausea. PHYSICAL EXAMINATION VITAL SIGNS: Temperature is 98, blood pressure is 120/70, respiratory rate of 16. HEENT: Examination of HEENT is unremarkable. NECK: Supple. LUNGS: Have decreased breath sounds. HEART: Normal S1, S2. ABDOMEN: Soft. LABORATORY DATA: Laboratory examination reveals the white count of 10,000, hemoglobin of 12, platelets of 328. BUN of 34, creatinine of 1.5. Urinalysis is noted. ASSESSMENT AND PLAN: This is a 58-year-old male with morbid obesity with a body mass index of 43, diabetes mellitus, diabetic neuropathy, coronary artery disease, congestive heart failure, congestive heart failure with chronic obstructive lung disease, anxiety with (SIRS) systemic inflammatory response syndrome, acute kidney injury, acute diastolic congestive heart failure. The patient to follow up with Dr. Meadows, local wound care and follow cultures and follow clinically. Erik Alexander MD
== END 2018-04-16 20:36 | disposition home or self-care (01) | DRG 569 ==
LOC: ED 12:25 → ERH 14:16 → 2RNO 15:28 → OBSVTOIN 04-13 11:26 → 5RSO 04-14 15:54
PROVIDERS: ADMIT Internal Medicine; ATTEND Internal Medicine
DX: E11.65 Type 2 diabetes mellitus with hyperglycemia (principal); I50.33 Acute on chronic diastolic (congestive) heart failure; R65.10 Systemic inflammatory response syndrome (SIRS) of non-infectious origin without acute organ dysfunction; I13.0 Hypertensive heart and chronic kidney disease with heart failure and stage 1 through stage 4 chronic kidney disease, or unspecified chronic kidney disease; J44.1 Chronic obstructive pulmonary disease with (acute) exacerbation; E87.1 Hypo-osmolality and hyponatremia; L97.519 Non-pressure chronic ulcer of other part of right foot with unspecified severity; L97.529 Non-pressure chronic ulcer of other part of left foot with unspecified severity; E87.2 Acidosis; B96.4 Proteus (mirabilis) (morganii) as the cause of diseases classified elsewhere; E11.51 Type 2 diabetes mellitus with diabetic peripheral angiopathy without gangrene; N17.9 Acute kidney failure, unspecified; N18.9 Chronic kidney disease, unspecified; E11.621 Type 2 diabetes mellitus with foot ulcer; E11.22 Type 2 diabetes mellitus with diabetic chronic kidney disease; E11.21 Type 2 diabetes mellitus with diabetic nephropathy; I48.0 Paroxysmal atrial fibrillation; I25.10 Atherosclerotic heart disease of native coronary artery without angina pectoris; G47.33 Obstructive sleep apnea (adult) (pediatric); K21.9 Gastro-esophageal reflux disease without esophagitis; I87.2 Venous insufficiency (chronic) (peripheral); E78.5 Hyperlipidemia, unspecified; F10.20 Alcohol dependence, uncomplicated; B95.2 Enterococcus as the cause of diseases classified elsewhere; I48.2 Chronic atrial fibrillation; F41.9 Anxiety disorder, unspecified; E66.01 Morbid (severe) obesity due to excess calories; Z68.41 Body mass index [BMI] 40.0-44.9, adult; Z87.891 Personal history of nicotine dependence; Z95.5 Presence of coronary angioplasty implant and graft; Z79.01 Long term (current) use of anticoagulants; Z79.84 Long term (current) use of oral hypoglycemic drugs

== ENCOUNTER 2018-04-22 08:14 | Inpatient (IN) | payer OTHER ==
--- NOTE | 2018-04-22 08:56 | ED PDOC ---
Arrival/HPI - General Chief Complaint: Trauma Time Seen by Provider: 04/22/18 08:33 Historian: Patient - History of Present Illness Narrative History of Present Illness (Text): 04/22/18 08:52 58 year old male, with past medical history of A-fib, CHF, diabetes and cellulitis, presents to the Emergency department after reportedly trip and fall prior to arrival. Patient states he fell and "got stuck between the car door and a tree" but denies any head injury or loss of consciousness. Patient states he feels generally weak since waking up this morning but denies any chest pain or shortness of breath. Patient reports pain to his right lower leg that he states he has had for several weeks. Denies worsening of this pain but states leg has been red and uncomfortable. Denies hip or knee pain. Denies acute back pain. He denies hemoptysis or hematemesis. Denies palpitations. Denies lightheadedness or dizziness. Time/Duration: Prior to Arrival Symptom Onset: Gradual Symptom Course: Unchanged Activities at Onset: Light Context: Street Past Medical History - Provider Review Nursing Documentation Reviewed: Yes - Infectious Disease Hx of Infectious Diseases: None - Tetanus Immunization Tetanus Immunization: Unknown - Cardiac Hx Cardiac Disorders: Yes Hx Congestive Heart Failure: Yes Hx Hypertension: Yes - Pulmonary Hx Respiratory Disorders: Yes Hx Sleep Apnea: Yes - Neurological Hx Neurological Disorder: Yes Other/Comment: tremors - HEENT Hx HEENT Disorder: Yes Other/Comment: glasses - Renal Hx Renal Failure: Yes (ARF 11/2014) - Endocrine/Metabolic Hx Diabetes Mellitus Type 2: Yes - Hematological/Oncological Hx Blood Disorders: No - Integumentary Hx Dermatological Disorder: No Other/Comment: cellulitis on sudhir lower ext. Chronic venous insufficiency ( previous triage) - Musculoskeletal/Rheumatological Hx Falls: No - Gastrointestinal Hx Gastroesophageal Reflux: Yes - Genitourinary/Gynecological Hx Genitourinary Disorders: No - Psychiatric Hx Psychophysiologic Disorder: Yes Hx Anxiety: Yes Hx Substance Use: No - Surgical History Hx Appendectomy: Yes Hx Cardiac Catheterization: Yes (04/2014) Hx Coronary Stent: Yes - Anesthesia Hx Anesthesia: Yes Hx Anesthesia Reactions: No Hx Malignant Hyperthermia: No - Suicidal Assessment Feels Threatened In Home Enviroment: No Family/Social History - Physician Review Nursing Documentation Reviewed: Yes Family/Social History: No Known Family HX Smoking Status: Former Smoker Hx Alcohol Use: No (Pt stopped drinking.) Hx Substance Use: No Hx Substance Use Treatment: No Allergies/Home Meds Allergies/Adverse Reactions: Allergies meropenem [From Merrem] Adverse Reaction (Verified 04/22/18 08:31) PAIN Home Medications: Home Meds Medication Instructions Recorded Confirmed Albuterol HFA [Ventolin HFA 90 1 puff IH BID PRN 09/17/16 04/22/18 mcg/actuation (8 g)] Furosemide [Lasix] 1 tab PO BID 09/17/16 04/22/18 Oxycodone HCl/Acetaminophen 1 tab PO Q4H PRN 09/17/16 04/22/18 [Percocet 10-325 mg Tablet] metOLazone [Zaroxolyn] 1 tab PO 2XW 09/17/16 04/22/18 Review of Systems - Review of Systems Constitutional: Fatigue. absent: Fevers ENT: absent: Hearing Changes, Sore Throat Respiratory: absent: SOB, Cough Cardiovascular: Edema, WALTERS. absent: Chest Pain, Palpitations Gastrointestinal: absent: Abdominal Pain Genitourinary Male: absent: Dysuria, Frequency Musculoskeletal: absent: Back Pain Skin: Rash, Skin Lesions, Cellulitis Neurological: absent: Headache, Dizziness, Focal Weakness Endocrine: absent: Polyuria Hemo/Lymphatic: absent: Easy Bleeding Psychiatric: absent: Depression, Suicidal Ideation Physical Exam - Physical Exam Narrative Physical Exam (Text): 04/22/18 08:56 Head: Atraumatic. Normocephalic. No scalp tenderness. No skull deformitis. Eyes: PERRL. EOMI. Conjunctivae are not pale. Visual acuity intact at baseline with no acute deficits. ENT: Mucous membranes are moist and intact. Oropharynx is clear and symmetric. No angioedema. No facial bony tenderness. Neck: Supple. Full ROM. No JVD. No lymphadenopathy. NO midline pain. No deformity. Cardiovascular: Tachycardic, irregularly irregular. Systolic murmur. Pulmonary/Chest: No evidence of respiratory distress. Clear to auscultation bilaterally. No wheezing, rales or rhonchi. Abdominal: Obese. No rebound or guarding. No pulsatile masses. Back: No CVA tenderness. NO deformity or midline tenderness. Rectal: no melena or gross bleeding. : no testicular pain Extremities: Distal pulses not palpable. Extensive erythema noted to right lower extremity from above the knee to foot with ulceration noted to foot with some drainage. Erythema noted to left lower extremity with toe/foot ulceration noted. No foreign body. No pain with range of motion of hips and knee bilaterally. No ankle deformity noted. Skin: Erythema to lower extremities with ulcerations. Neurological: Alert, awake, and oriented. No facial droop. No slurred speech. No meningeal signs. No focal weakness. Psychiatric: Does not express depression or suicidal ideation. 04/22/18 18:55 Vital Signs Reviewed: Yes Vital Signs Temp Pulse Pulse Resp BP Pulse Ox 04/22/18 15:00 111 H 16 115/50 L 98 04/22/18 13:36 99.2 F 145 H 135 H 18 119/56 L 04/22/18 13:07 111 H 18 96/57 L 98 04/22/18 13:04 96/57 L 04/22/18 11:20 99.2 F 138 H 18 119/56 L 98 04/22/18 09:25 167 H 148/88 04/22/18 08:24 98.6 F 150 H 18 149/89 100 Temperature: Afebrile Blood Pressure: Normal Pulse: Tachycardic Respiratory Rate: Normal Appearance: Positive for: Non-Toxic, Ill-Appearing Pain Distress: Mild Mental Status: Positive for: other (alert, answers questions appropriately) Finger Stick Blood Glucose: 290 Medical Decision Making ED Course and Treatment: Patient seen and evaluated on arrival. He states that he was trying to get in his car and fell, but denies syncope or loss of consciousness, states he "screamed for help" because he could not get up. On intial exam no head injury noted. No focal neuro deficits noted. He denies headache or chest pain or shortness of breath. On exam, he is noted to be in rapid atrial fibrillation with rapid ventricular response. He has prior history of afib, reportedly on anticoagulants. NO active bleeding noted. No head trauma noted. Serial neuro exams intact. IV cardizem bolus and drip initiated with improvement in heart rate although persistent tachycardia. He continues to deny chest pain or sob. Lactate elevated. WBC significantly elevated. CODE SEPSIS CALLED. I consulted Dr. Alexander and Dr. Coker and reviewed recent admission as well as recent wound cultures. I reviewed patient's allergies with patient. IV vancomycin and IV zosyn ordered. IV FLUIDS given gently as PATIENT WITH PRIOR HISTORY OF CONGESTIVE HEART FAILURE. Hyperkalemia noted. D50 and insulin ordered. Kayexalate ordered by admitting team. 04/22/18 10:54 Chest X-ray reviewed by radiologist, shows no active disease. Patient with improvement in BP with serial exams, improved heart rate. Will admit to monitored bed as he is septic, with likely cellulitis of lower extremities. ID has evaluated patient in ED. Case d/w Dr. En Leiva, patient's PMD who requests admission to hospitalist. Care turned over to hospitalist team at 1200 for monitoring, review and follow- up of heart rhythm, BP, hyperkalemia. - Lab Interpretations Lab Results: 04/22/18 09:00 04/22/18 09:00 Lab Results 04/22/18 11:06: POC Glucose (mg/dL) 339 H 04/22/18 09:00: Blood Type A POSITIVE, Antibody Screen Negative, BBK History Checked Patient has bt 04/22/18 09:00: Sodium 127 L, Chloride 93 L, Potassium 6.0 H* D, Carbon Dioxide 21, Anion Gap 19, BUN 33 H, Creatinine 1.6 H, Est GFR ( Amer) 54, Est GFR (Non-Af Amer) 44, Random Glucose 285 H, Calcium 9.0, Magnesium 1.7, Total Bilirubin 1.6 H, AST 24, ALT 28, Alkaline Phosphatase 81, Lactate Dehydrogenase 784 H, Total Creatine Kinase 79, Troponin I < 0.01, NT-Pro-B Natriuret Pep 4330 H, Total Protein 6.7, Albumin 3.3, Globulin 3.4, Albumin/Globulin Ratio 1.0 L 04/22/18 09:00: pO2 24 L, VBG pH 7.35, VBG pCO2 41.0, VBG HCO3 22.6, VBG Total CO2 23.9, VBG O2 Sat (Calc) 45.9, VBG Base Excess -2.9 L, VBG Potassium 6.1 H, Sodium 126.0 L, Chloride 93.0 L, Glucose 316 H, Lactate 3.0 H, FiO2 21.0, Venous Blood Potassium 6.1 H 04/22/18 09:00: Urine Color Yellow, Urine Appearance Clear, Urine pH 6.0, Ur Specific [place] 1.025, Urine Protein 30 H, Urine Glucose (UA) 250 H, Urine Ketones Trace H, Urine Blood Trace-lysed H, Urine Nitrate Negative, Urine Bilirubin Negative, Urine Urobilinogen 1.0 H, Ur Leukocyte Esterase Negative, Urine RBC 2 - 5, Urine WBC 0 - 2, Ur Epithelial Cells 0 - 2, Amorphous Sediment Small, Urine Bacteria Many, Coarse Granular Casts Trace H, Urine Other Uyeast 04/22/18 09:00: PT 19.4 H, INR 1.67, APTT 43.1 H 04/22/18 09:00: WBC 26.8 H* D, RBC 3.81, Hgb 11.8 L, Hct 34.9 L, MCV 91.6, MCH 31.0, MCHC 33.8, RDW 14.4, Plt Count 410, MPV 9.3, Gran % 93.1 H, Lymph % (Auto ) 1.6 L, [place] % (Auto) 5.1, Eos % (Auto) 0.1 L, Baso % (Auto) 0.1, Gran # 24.94 H, Lymph # (Auto) 0.4 L, [place] # (Auto) 1.4 H, Eos # (Auto) 0.0, Baso # (Auto) 0.04, Neutrophils % (Manual) 87 H, Band Neutrophils % 2, Lymphocytes % (Manual) 2 L, Monocytes % (Manual) 7 H, Eosinophils % (Manual) 2, Platelet Evaluation Normal - RAD Interpretation Radiology Orders: 04/22/18 10:29 CHEST PORTABLE [RAD] Stat - EKG Interpretation EKG Interpretation (Text): 04/22/18 19:08 EKG at 0841 atrial fibrillation with rapid ventricular response rate of 163 Interpreted by ED Physician: Yes Type: 12 lead EKG - Medication Orders Current Medication Orders: Albuterol/Ipratropium (Duoneb 3 Mg/0.5 Mg (3 Ml) Ud) 3 ml IH [id number] PRN PRN Reason: Wheezing Last Admin: 04/22/18 18:14 Dose: 3 ml Atorvastatin Calcium (Lipitor) 10 mg PO DIN SHAHEED Last Admin: 04/22/18 17:31 Dose: 10 mg Dabigatran (Pradaxa) 150 mg PO BID SHAHEED PRN Reason: Protocol Last Admin: 04/22/18 17:31 Dose: 150 mg Furosemide (Lasix) 40 mg IVP Q12 SHAHEED Last Admin: 04/22/18 16:53 Dose: 40 mg MAR Blood Pressure Document 04/22/18 16:53 MMA (Rec: 04/22/18 16:54 MMA [id number]) Blood Pressure Blood Pressure (100/60-150/90 mm Hg) 137/68 IVP Administration Document 04/22/18 16:53 MMA (Rec: 04/22/18 16:54 MMA [id number]) Charges for Administration # of IVP Administrations 1 diltiaZEM IVPB 100mg in NS (Cardizem 100mg In Ns) 100 mls @ 5 mls/hr IV .Q20H PRN; Protocol; 5 MG/HR PRN Reason: TITRATE PER MD ORDER Last Admin: 04/22/18 13:06 Dose: 5 mg/hr, 5 mls/hr eMAR Start Stop Document 04/22/18 13:06 [facility] (Rec: 04/22/18 13:07 LM [id number]) Intravenous Solution Start Date 04/22/18 Start Time 13:06 MAR Pulse Rate Document 04/22/18 13:06 [facility] (Rec: 04/22/18 13:07 LM [id number]) Pulse Rate Pulse Rate (60-90 beats/min) 111 Titration Intervention Document 04/22/18 13:06 [facility] (Rec: 04/22/18 13:07 LM [id number]) Titration Intake Waste Amount 0 Container Volume 100 Titration Dosing Titration Dose 5 IV Rate 5 Intake/Decrease Started Piperacillin Sod/Tazobactam Sod (Zosyn 3.375 In Ns 100ml) 100 mls @ 200 mls/hr IVPB Q6 SHAHEED PRN Reason: Protocol Stop: 04/23/18 00:29 Last Admin: 04/22/18 17:32 Dose: 200 mls/hr eMAR Start Stop Document 04/22/18 17:32 MMA (Rec: 04/22/18 17:32 MMA [id number]) Intravenous Solution Start Date 04/22/18 Start Time 17:32 End Date 04/22/18 End time 18:02 Total Infusion Time 30 Aztreonam (Azactam 1 Gm) 100 mls @ 100 mls/hr IVPB Q8 SHAHEED PRN Reason: Protocol Stop: 04/29/18 22:01 Linezolid (Zyvox 600mg/300ml D5w) 600 mg in 300 mls @ 200 mls/hr IVPB Q12 SHAHEED PRN Reason: Protocol Stop: 04/29/18 22:01 Insulin Detemir (Levemir) 80 unit SC HS SHAHEED Insulin Human Lispro (Humalog) 30 units SC AC SHAHEED Last Admin: 04/22/18 16:54 Dose: 30 u Subcutaneous Administrations Document 04/22/18 16:54 MMA (Rec: 04/22/18 16:54 MMA [id number]) Charges for Administration # of Subcutaneous Administrations 1 Metoprolol Tartrate (Lopressor) 5 mg IVP Q6 PRN PRN Reason: Heart rate Pantoprazole Sodium (Protonix Ec Tab) 40 mg PO 0600 [facility] Discontinued Medications Dextrose (Dextrose 50% Inj) 50 ml IVP ONCE ONE Stop: 04/22/18 10:31 Last Admin: 04/22/18 11:04 Dose: 50 ml IVP Administration Document 04/22/18 11:04 [facility] (Rec: 04/22/18 11:04 [facility] [place] [id number]) Charges for Administration # of IVP Administrations 1 Diltiazem HCl (Cardizem) 15 mg IVP ONCE ONE Stop: 04/22/18 08:46 Last Admin: 04/22/18 09:25 Dose: 15 mg IVP Administration Document 04/22/18 09:25 [facility] [place] (Rec: 04/22/18 09:26 [facility] [place] [id number]) Charges for Administration # of IVP Administrations 1 MAR Pulse and Blood Pressure Document 04/22/18 09:25 [facility] [place] (Rec: 04/22/18 09:26 [facility] [place] [id number]) Pulse Pulse Rate (60-90 beats/min) 167 Blood Pressure Blood Pressure (100/60-150/90 mm Hg) 148/88 Vancomycin HCl (Vancomycin 1gm) 1 gm in 250 mls @ 167 mls/hr IVPB STAT STA PRN Reason: Protocol Stop: 04/22/18 11:14 Last Admin: 04/22/18 10:08 Dose: 167 mls/hr eMAR Start Stop Document 04/22/18 10:08 [facility] [place] (Rec: 04/22/18 10:09 [facility] [place] [id number]) Intravenous Solution Start Date 04/22/18 Start Time 10:09 End Date 04/22/18 End time 11:41 Total Infusion Time 92 Piperacillin Sod/Tazobactam Sod (Zosyn 3.375 In Ns 100ml) 100 mls @ 200 mls/hr IVPB STAT STA PRN Reason: Protocol Stop: 04/22/18 11:12 Last Admin: 04/22/18 13:10 Dose: 200 mls/hr eMAR Start Stop Document 04/22/18 13:10 [facility] [place] (Rec: 04/22/18 13:10 [facility] [place] [id number]) Intravenous Solution Start Date 04/22/18 Start Time 13:10 End Date 04/22/18 End time 13:40 Total Infusion Time 30 Sodium Chloride (Sodium Chloride 0.9%) 500 mls @ 999 mls/hr IV .Q31M STA Stop: 04/22/18 11:16 Last Admin: 04/22/18 11:10 Dose: 999 mls/hr eMAR Start Stop Document 04/22/18 11:10 [facility] [place] (Rec: 04/22/18 11:11 [facility] [place] [id number]) Intravenous Solution Start Date 04/22/18 Start Time 11:10 End Date 04/22/18 End time 11:40 Total Infusion Time 30 Insulin Human Regular (Humulin R) 10 units IV ONCE ONE Stop: 04/22/18 10:45 Last Admin: 04/22/18 11:07 Dose: 10 unit eMAR Start Stop Document 04/22/18 11:07 [facility] [place] (Rec: 04/22/18 11:08 [facility] [place] [id number]) Intravenous Solution Start Date 04/22/18 Start Time 11:08 End Date 04/22/18 End time 11:10 Total Infusion Time 2 MAR Blood Glucose Document 04/22/18 11:07 [facility] [place] (Rec: 04/22/18 11:08 [facility] [place] [id number]) Blood Glucose Finger Stick Blood Glucose (70-120) 339 Metoprolol Tartrate (Lopressor) 50 mg PO STAT STA Stop: 04/22/18 12:24 Last Admin: 04/22/18 13:04 Dose: Not Given Non-Admin Reason: BP Parameters Not Met [facility] Pulse and Blood Pressure Document 04/22/18 13:04 [facility] [place] (Rec: 04/22/18 13:05 [facility] [place] [id number]) Blood Pressure Blood Pressure (100/60-150/90 mm Hg) 96/57 Oxycodone/Acetaminophen (Percocet 5/325 Mg Tab) 1 tab PO STAT STA Stop: 04/22/18 16:04 Last Admin: 04/22/18 16:22 Dose: 1 tab MAR Pain Assessment Document 04/22/18 16:22 [facility] [place] (Rec: 04/22/18 16:22 [facility] [place] [id number]) Pain Reassessment Is this a pain reassessment? Yes Sleep Is patient sleeping during reassessment? No Presence of Pain Presence of Pain Yes Pain Scale Used Pain Scale Used Numeric Location Left, Right or Bilateral Bilateral Upper or Lower Lower Pain Location Body Site Leg Sodium Polystyrene Sulfonate (Kayexalate Susp) 30 gm PO STAT STA Stop: 04/22/18 12:22 Last Admin: 04/22/18 13:09 Dose: 30 gm - Scribe Statement The provider has reviewed the documentation as recorded by the Lauraibe Dora Gonsalez. All medical record entries made by the Lauraibben were at my direction and personally dictated by me. I have reviewed the chart and agree that the record accurately reflects my personal performance of the history, physical exam, medical decision making, and the department course for this patient. I have also personally directed, reviewed, and agree with the discharge instructions and disposition. Disposition/Present on Arrival - Present on Arrival Any Indicators Present on Arrival: No History of DVT/PE: No History of Uncontrolled Diabetes: No Urinary Catheter: No History of Decub. Ulcer: No History Surgical Site Infection Following: None - Disposition Have Diagnosis and Disposition been Completed?: Yes Diagnosis: Cellulitis, Hyperkalemia, Rapid atrial fibrillation, Sepsis, Leg edema, Hyponatremia, Renal insufficiency, Leukocytosis Disposition: HOSPITALIZED Disposition Time: 10:45 Patient Plan: Admission, Telemetry Patient Problems: Current Active Problems Problem Status Onset Cellulitis Acute Hyperkalemia Acute Leg edema Acute Rapid atrial fibrillation Acute Sepsis Acute Condition: SERIOUS
[2018-04-22] MEDS: diltiaZEM IVPB 100mg in NS 100 ML IV PRN ×4 (09:28→23:31)
[2018-04-22 09:33] LABS: VENOUS BLOOD GAS BASE EXCESS -2.9 mmol/L (0.0-2.0); VENOUS BLOOD GAS PO2 24 mm/Hg (30-55); VENOUS BLOOD PH 7.35 (7.32-7.43)
[2018-04-22 09:38] LABS: BASO # 0.04 K/mm3 (0.0-2.0); BASO % 0.1 % (0.0-3.0); EOS % 0.1 % (1.5-5.0); GRAN # 24.94 (1.4-6.5); GRAN % 93.1 % (50.0-68.0); HEMOGLOBIN 11.8 g/dL (14.0-18.0); LYMPH # 0.4 (1.2-3.4); LYMPH % 1.6 % (22.0-35.0); MEAN CELL VOLUME 91.6 fl (80.0-105.0); MEAN CORPUSCULAR HGB CONC 33.8 g/dl (31.0-37.0); MEAN PLATELET VOLUME 9.3 fl (7.0-11.0); MONO # 1.4 (0.1-0.6); MONO % 5.1 % (1.0-6.0); PLATELET COUNT 410 10^3/uL (120.0-450.0); RBC 3.81 10^6/uL (3.5-6.1); RED CELL DISTRIBUTION WIDTH 14.4 % (11.5-14.5)
[2018-04-22 09:39] LABS: URINE BILIRUBIN NEGATIVE (NEGATIVE); URINE BLOOD TRACE-LYSED (NEGATIVE); URINE GLUCOSE (UA) 250 mg/dL (NEGATIVE); URINE LEUKOCYTE ESTERASE NEGATIVE Leu/uL (NEGATIVE); URINE PROTEIN 30 mg/dL (<30 mg/dL)
[2018-04-22 09:41] LABS: WHITE BLOOD COUNT 26.8 10^3/ul (4.5-11.0)
[2018-04-22 09:42] LABS: URINE APPEARANCE CLEAR (CLEAR); URINE COLOR YELLOW (YELLOW)
[2018-04-22 09:43] LABS: INR 1.67; PARTIAL THROMBOPLASTIN TIME 43.1 Seconds (25.1-36.5); PROTHROMBIN TIME 19.4 SECONDS (9.4-12.5); URINE WBC 0 - 2 /hpf (0-6)
[2018-04-22 09:44] LABS: URINE AMORPHOUS SEDIMENT SMALL; URINE BACTERIA MANY (NEG); URINE COARSE GRANULAR CAST TRACE /hpf (0-2); URINE EPITHELIAL CELLS 0 - 2 /hpf (0-5)
[2018-04-22] MEDS ORDERED: Vancomycin 1gm in NS 250ml 1 GM/250 ML BAG IVPB STA ×2 (09:45→09:53)
[2018-04-22 10:08] LABS: B-TYPE NATRIURETIC PEPTIDE 4330 pg/mL (0-450); TROPONIN I < 0.01 ng/mL
[2018-04-22 10:10] LABS: ALBUMIN 3.3 g/dL (3.0-4.8); ALT/SGPT 28 U/L (7-56); AST/SGOT 24 U/L (17-59); BLOOD UREA NITROGEN 33 mg/dL (7-21); GFR NON-AFRICAN AMERICAN 44
[2018-04-22 10:18] LABS: BAND 2 % (0-2); LYMPHOCYTE 2 % (22.0-35.0); NEUTROPHIL 87 % (50.0-70.0)
[2018-04-22 10:19] LABS: EOSINOPHIL 2 % (0.0-3.0); MONOCYTE 7 % (1.0-6.0); PLATELET ESTIMATE NORMAL (NORMAL)
[2018-04-22] MEDS ORDERED: Dextrose 50% SYRINGE Inj (50 ml) IVP ONE (10:30)
[2018-04-22] MEDS ORDERED: Piperacillin/Tazobact 3.375 gm 100 ML IVPB STA (10:43)
[2018-04-22] MEDS ORDERED: Insulin Regular 1 UNITS/0.01 ML ML IV ONE (10:44)
[2018-04-22] MEDS ORDERED: Sodium Chloride 0.9% 500 ML IV STA (10:46)
--- NOTE | 2018-04-22 11:18 | RAD ---
Date of service: 04/22/2018 HISTORY: sob COMPARISON: 04/12/2018 FINDINGS: LUNGS: No active pulmonary disease. PLEURA: No significant pleural effusion identified, no pneumothorax apparent. CARDIOVASCULAR: Normal. OSSEOUS STRUCTURES: No significant abnormalities. VISUALIZED UPPER ABDOMEN: Normal. OTHER FINDINGS: None. IMPRESSION: No active disease.
[2018-04-22] MEDS ORDERED: Sod Polystyrene Sulf 15 gm/60 ml Susp PO STA (12:21)
[2018-04-22 14:03] LABS: VENOUS BLOOD GAS BASE EXCESS -3.2 mmol/L (0.0-2.0); VENOUS BLOOD GAS PO2 23 mm/Hg (30-55)
[2018-04-22 14:23] VITALS: BMI 41.8
[2018-04-22] MEDS ORDERED: Metoprolol 1 mg/ml Inj IVP PRN (15:04)
--- NOTE | 2018-04-22 15:07 | CP.PCM.HP ---
<Nitish Madrigal - Last Filed: 04/22/18 16:26> History of Present Illness - History of Present Illness History of Present Illness: Nitish Madrigal PGY1, medicine History and Physical for Dr Tang. Pt is a 58 yo male with a PMH of DM, atrial fibrillation with RVR (taking pradaxa), CAD, HTN, venous stasis ulcers, COPD, and obstructive sleep apnea who presents after a mechanical fall while walking on the street on his way to his podiatry appointment. Pt was recently discharged from [facility] [place] for confusion. Pt reports that he has been "sitting around watching TV" since he was discharged. He reports using wound care cream on his feet. He states the pain is 10/10, with no specific character, and non-radiating. Pt has no tried anything at home to help relieve the pain, nothing in particular makes it worse. He denies excessive walking recently. Pt denies chest pain, SOB, fevers, chills, red streaks, or throbbing pain in his legs. A 12 point ROS was obtained and added to HPI where appropriate. PMH: atrial fib, DM, CAD, venous stasis ulcers, HTN, COPD, JOSELINE PSH: appendectomy SH: 40 pack/year smoker, quit 15 years ago, daily alcohol use, denies drug use Allergies: NKDA PMD: Dr Leiva Present on Admission - Present on Admission Any Indicators Present on Admission: Yes History of Uncontrolled Diabetes: Yes Review of Systems - Review of Systems Review of Systems: 12 point ROS obtained and added to HPI where appropriate Past Patient History - Infectious Disease Hx of Infectious Diseases: None - Tetanus Immunizations Tetanus Immunization: Unknown - Past Social History Smoking Status: Former Smoker - CARDIAC Hx Cardiac Disorders: Yes Hx Congestive Heart Failure: Yes Hx Hypertension: Yes - PULMONARY Hx Respiratory Disorders: Yes Hx Sleep Apnea: Yes - NEUROLOGICAL Hx Neurological Disorder: Yes Other/Comment: tremors - HEENT Hx HEENT Problems: Yes Other/Comment: glasses - RENAL Hx Renal Failure: Yes (ARF 11/2014) - ENDOCRINE/METABOLIC Hx Diabetes Mellitus Type 2: Yes - HEMATOLOGICAL/ONCOLOGICAL Hx Blood Disorders: No - INTEGUMENTARY Hx Dermatological Problems: No Other/Comment: cellulitis on sudhir lower ext. Chronic venous insufficiency ( previous triage) - MUSCULOSKELETAL/RHEUMATOLOGICAL Hx Falls: Yes - GASTROINTESTINAL Hx Gastroesophageal Reflux: Yes - GENITOURINARY/GYNECOLOGICAL Hx Genitourinary Disorders: No - PSYCHIATRIC Hx Psychophysiologic Disorder: Yes Hx Anxiety: Yes Hx Substance Use: No - SURGICAL HISTORY Hx Appendectomy: Yes Hx Cardiac Catheterization: Yes (04/2014) Hx Coronary Stent: Yes - ANESTHESIA Hx Anesthesia: Yes Hx Anesthesia Reactions: No Hx Malignant Hyperthermia: No Meds Allergies/Adverse Reactions: Allergies Allergy/AdvReac Type Severity Reaction Status Date / Time meropenem [From Merrem] AdvReac PAIN Verified 04/22/18 08:31 Physical Exam - Constitutional Appears: No Acute Distress - Head Exam Head Exam: ATRAUMATIC, NORMOCEPHALIC - Eye Exam Eye Exam: EOMI - ENT Exam ENT Exam: Mucous Membranes Moist - Respiratory Exam Respiratory Exam: Clear to Auscultation Bilateral, NORMAL BREATHING PATTERN. absent: Accessory Muscle Use, Rhonchi, Wheezes, Respiratory Distress, Stridor - Cardiovascular Exam Cardiovascular Exam: Tachycardia, Irregular Rhythm, +S1, +S2. absent: JVD - GI/Abdominal Exam GI & Abdominal Exam: Normal Bowel Sounds, Soft. absent: Pulsatile Mass, Rebound , Rigid, Tenderness - Expanded Lower Extremities Exam Left Foot/Toe exam: erythema (multiple chronic ulcers on both feet), swelling, tenderness - Back Exam Back exam: FULL ROM, NORMAL INSPECTION. absent: CVA tenderness (L), CVA tenderness (R), muscle spasm - Neurological Exam Neurological exam: Alert, Oriented x3 - Psychiatric Exam Psychiatric exam: Normal Affect, Normal Mood Results - Vital Signs Recent Vital Signs: Last Vital Signs Temp 99.2 F 04/22/18 13:36 Pulse 135 H 04/22/18 13:36 Resp 18 04/22/18 13:36 BP 119/56 L 04/22/18 13:36 Pulse Ox 98 04/22/18 13:07 - Labs Result Diagrams: 04/22/18 09:00 04/22/18 09:00 Labs: Laboratory Results - last 24 hr 04/22/18 14:00 pO2 23 L VBG pH 7.30 L VBG pCO2 48.0 VBG HCO3 23.6 VBG Total CO2 25.1 VBG O2 Sat (Calc) 40.6 VBG Base Excess -3.2 L VBG Potassium 5.5 H Sodium 128.0 L Chloride 94.0 L Glucose 281 H Lactate 2.8 H FiO2 21.0 Venous Blood Potassium 5.5 H Assessment & Plan - Assessment and Plan (Free Text) Assessment: Pt is a 58 yo male with PMH of DM, atrial fibrillation (taking Pradaxa), CAD, chronic venous stasis ulcers, HTN, COPD and JOSELINE, presents after a mechanical fall/ cellulitis on his BL LE. Plan: Sepsis - start Zosyn - start Vanc - start NS@100, gentle fluids because pt is currently in CHF exacerbation - ID consulted - ordered CRP - Ordered procal Hyperkalemia - start kayexalate - continue to monitor for EKG changes - continue to monitor with serial CMP q4h - hold aldronate at this time, until hyperkalemia resolves Atrial Fibrillation - start metoprolol PRN for HR>110, 50mg Q12h - start cardizem 5mg - continue Pradaxa DM - start lispro 30 units SC AC - start levemir 80 units SC HS - accuchecks CHF exacerbation - start Lasix 40 IV BID - hold aldronate, until hyperkalemia has resolved MADELYN - started IVF - CR 1.6, baseline 1.5 Hyponatremia - secondary to CHF exacerbation, and hyperglycemia - continue with IVF - continue to monitor Pt seen, examined, and assessment/ plan discussed with Dr Tang. Nitish Madrigal PGY1 Internal Medicine Resident - Date & Time Date: 04/22/18 Time: 15:00 <Jalen Tang - Last Filed: 04/23/18 13:53> Results - Vital Signs Recent Vital Signs: Last Vital Signs Temp 97.6 F 04/23/18 11:54 Pulse 101 H 04/23/18 11:54 Resp 20 04/23/18 11:54 BP 116/75 04/23/18 11:54 Pulse Ox 98 04/23/18 06:00 - Labs Result Diagrams: 04/23/18 08:30 04/23/18 08:30 Labs: Laboratory Results - last 24 hr 04/22/18 04/22/18 04/22/18 14:00 16:59 18:30 WBC RBC Hgb Hct MCV MCH MCHC RDW Plt Count MPV Gran % Lymph % (Auto) [place] % (Auto) Eos % (Auto) Baso % (Auto) Gran # Lymph # (Auto) [place] # (Auto) Eos # (Auto) Baso # (Auto) pO2 23 L VBG pH 7.30 L VBG pCO2 48.0 VBG HCO3 23.6 VBG Total CO2 25.1 VBG O2 Sat (Calc) 40.6 VBG Base Excess -3.2 L VBG Potassium 5.5 H Sodium 128.0 L 133 Chloride 94.0 L 96 L Glucose 281 H Lactate 2.8 H FiO2 21.0 Potassium 4.5 Carbon Dioxide 23 Anion Gap 19 BUN 31 H Creatinine 1.6 H Est GFR ( Amer) 54 Est GFR (Non-Af Amer) 44 POC Glucose (mg/dL) 305 H Random Glucose 296 H Calcium 8.8 Total Bilirubin AST ALT Alkaline Phosphatase C-Reactive Protein 336.60 H Total Protein Albumin Globulin Albumin/Globulin Ratio Procalcitonin Venous Blood Potassium 5.5 H 04/22/18 04/22/18 04/23/18 18:30 21:20 02:04 WBC RBC Hgb Hct MCV MCH MCHC RDW Plt Count MPV Gran % Lymph % (Auto) [place] % (Auto) Eos % (Auto) Baso % (Auto) Gran # Lymph # (Auto) [place] # (Auto) Eos # (Auto) Baso # (Auto) pO2 VBG pH VBG pCO2 VBG HCO3 VBG Total CO2 VBG O2 Sat (Calc) VBG Base Excess VBG Potassium Sodium Chloride Glucose Lactate FiO2 Potassium Carbon Dioxide Anion Gap BUN Creatinine Est GFR ( Amer) Est GFR (Non-Af Amer) POC Glucose (mg/dL) > 500 H* 296 H Random Glucose Calcium Total Bilirubin AST ALT Alkaline Phosphatase C-Reactive Protein Total Protein Albumin Globulin Albumin/Globulin Ratio Procalcitonin 4.44 H Venous Blood Potassium 04/23/18 04/23/18 04/23/18 07:17 08:30 08:30 WBC 14.0 H D RBC 3.83 Hgb 11.8 L Hct 34.4 L MCV 89.8 MCH 30.8 MCHC 34.3 RDW 14.2 Plt Count 399 MPV 8.7 Gran % 83.1 H Lymph % (Auto) 8.5 L [place] % (Auto) 5.4 Eos % (Auto) 2.8 Baso % (Auto) 0.2 Gran # 11.65 H Lymph # (Auto) 1.2 [place] # (Auto) 0.8 H Eos # (Auto) 0.4 Baso # (Auto) 0.03 pO2 VBG pH VBG pCO2 VBG HCO3 VBG Total CO2 VBG O2 Sat (Calc) VBG Base Excess VBG Potassium Sodium 131 L Chloride 94 L Glucose Lactate FiO2 Potassium 3.6 Carbon Dioxide 24 Anion Gap 18 BUN 29 H Creatinine 1.3 Est GFR ( Amer) > 60 Est GFR (Non-Af Amer) 56 POC Glucose (mg/dL) 180 H Random Glucose 144 H Calcium 8.1 L Total Bilirubin 0.8 AST 30 ALT 20 Alkaline Phosphatase 72 C-Reactive Protein Total Protein 7.7 Albumin 3.6 Globulin 4.0 Albumin/Globulin Ratio 0.9 L Procalcitonin Venous Blood Potassium 04/23/18 11:41 WBC RBC Hgb Hct MCV MCH MCHC RDW Plt Count MPV Gran % Lymph % (Auto) [place] % (Auto) Eos % (Auto) Baso % (Auto) Gran # Lymph # (Auto) [place] # (Auto) Eos # (Auto) Baso # (Auto) pO2 VBG pH VBG pCO2 VBG HCO3 VBG Total CO2 VBG O2 Sat (Calc) VBG Base Excess VBG Potassium Sodium Chloride Glucose Lactate FiO2 Potassium Carbon Dioxide Anion Gap BUN Creatinine Est GFR ( Amer) Est GFR (Non-Af Amer) POC Glucose (mg/dL) 237 H Random Glucose Calcium Total Bilirubin AST ALT Alkaline Phosphatase C-Reactive Protein Total Protein Albumin Globulin Albumin/Globulin Ratio Procalcitonin Venous Blood Potassium Attending/Attestation - Attestation I have personally seen and examined this patient.: Yes I have fully participated in the care of the patient.: Yes I have reviewed all pertinent clinical information: Yes Notes (Text): 04/23/18 13:41 Patient was seen and examined with [facility] medical inpatient services. 58 yrs old male with a PMH of IRDM, chronic atrial fibrillation on anticoagulation with pradaxa), CAD, HTN, venous stasis ulcers, COPD, stage III CKD and obstructive sleep apnea is admitted with sepsis due to bilateral leg cellulitis, acute on chronic diastolic CHF exacerbation, AF with RVR and uncontrolled DM. Sepsis, continue IV antibiotics as per ID, we will follow up blood and wound cultures. CHF exacerbation, continue IV lasix, will follow up BUN and creatinin. Hyperkalemia without EKG chnages, holding aldactone, has been given Kayexalate , we will follow up electrolyte. AF with RVR, will reasrta oral lopressor, will monitor heart rate and will wean off cardizem drip, continue Paradexa. Management plan was discussed in detail with patient. Education was provided.
--- NOTE | 2018-04-22 15:47 | PCM.SEPTIC ---
Sepsis Progress Note - Reassessment Type Date of Evaluation: 04/22/18 Time of Evaluation: 02:00 Reassessment Type: Non-invasive reassessment - Non Invasive Reassessment Were the most recent vital sign reviewed: Yes Vital Sign (Latest): Temp Pulse Resp BP Pulse Ox 99.2 F 135 H 18 119/56 L 98 04/22/18 13:36 04/22/18 13:36 04/22/18 13:36 04/22/18 13:36 04/22/18 13:07 Cardiovascular: Yes: Tachycardia, Irregularly Irregular Respiratory: Yes: Decreased Breath Sounds Capillary Refill: Normal (Less than 2 sec) Skin: Other (BL LE have multiple ulcers, BL LE swollen, erythemetous to the knees)
[2018-04-22] MEDS ORDERED: Oxycodone/Acetaminophen 5/325 mg Tab PO STA (16:03)
[2018-04-22] MEDS ORDERED: Sodium Chloride 0.9% 1,000 ML IV SCH (16:15)
[2018-04-22] MEDS: Insulin Lispro 1 UNITS/0.01 ML SC SCH (16:54)
--- NOTE | 2018-04-22 17:15 | CP.PCM.CON ---
History of Present Illness - History of Present Illness History of Present Illness: 58 year old male with PMH of lower extremity cellulitis, chronic lower extremity edema, CAD, HTN, atrial fibrillation, DM, JOSELINE, morbid obesity with BMI 42 came in to [facility] [place] complaining of worsening lower extremity edema and now with ulcerations. He was seen last week and was treated for chronic venous stasis. He states that his swellng got worse when he went home over the weekend and his legs started getting painful and he had blisters as well. He denies fever or chills, no nausea or vomiting, no chest pain, no SOB, no headache or dizziness, denies animal contacts or insect bites, no abdominal pain, no diarrhea, no dysuria, no soaking of feet in water. Infectious Diseases consult is requested to further evaluate and manage. Review of Systems - Review of Systems All systems: reviewed and no additional remarkable complaints except (as per HPI ) Past Patient History - Infectious Disease Hx of Infectious Diseases: None - Tetanus Immunizations Tetanus Immunization: Unknown - Past Social History Smoking Status: Former Smoker - CARDIAC Hx Cardiac Disorders: Yes Hx Congestive Heart Failure: Yes Hx Hypertension: Yes - PULMONARY Hx Respiratory Disorders: Yes Hx Sleep Apnea: Yes - NEUROLOGICAL Hx Neurological Disorder: Yes Other/Comment: tremors - HEENT Hx HEENT Problems: Yes Other/Comment: glasses - RENAL Hx Renal Failure: Yes (ARF 11/2014) - ENDOCRINE/METABOLIC Hx Diabetes Mellitus Type 2: Yes - HEMATOLOGICAL/ONCOLOGICAL Hx Blood Disorders: No - INTEGUMENTARY Hx Dermatological Problems: No Other/Comment: cellulitis on sudhir lower ext. Chronic venous insufficiency ( previous triage) - MUSCULOSKELETAL/RHEUMATOLOGICAL Hx Falls: No - GASTROINTESTINAL Hx Gastroesophageal Reflux: Yes - GENITOURINARY/GYNECOLOGICAL Hx Genitourinary Disorders: No - PSYCHIATRIC Hx Psychophysiologic Disorder: Yes Hx Anxiety: Yes Hx Substance Use: No - SURGICAL HISTORY Hx Appendectomy: Yes Hx Cardiac Catheterization: Yes (04/2014) Hx Coronary Stent: Yes - ANESTHESIA Hx Anesthesia: Yes Hx Anesthesia Reactions: No Hx Malignant Hyperthermia: No Meds Allergies/Adverse Reactions: Allergies Allergy/AdvReac Type Severity Reaction Status Date / Time meropenem [From Merrem] AdvReac PAIN Verified 04/22/18 08:31 - Medications Medications: Current Medications diltiaZEM IVPB 100mg in NS (Cardizem 100mg In Ns) 100 mls @ 5 mls/hr IV .Q20H PRN; Protocol; 5 MG/HR PRN Reason: TITRATE PER MD ORDER Last Admin: 04/22/18 09:28 Dose: 5 mls/hr Vancomycin HCl (Vancomycin 1gm) 1 gm in 250 mls @ 167 mls/hr IVPB STAT STA PRN Reason: Protocol Stop: 04/22/18 11:14 Last Admin: 04/22/18 10:08 Dose: 167 mls/hr Piperacillin Sod/Tazobactam Sod (Zosyn 3.375 In Ns 100ml) 100 mls @ 200 mls/hr IVPB STAT STA PRN Reason: Protocol Stop: 04/22/18 11:12 Sodium Chloride (Sodium Chloride 0.9%) 500 mls @ 999 mls/hr IV .Q31M STA Stop: 04/22/18 11:16 Physical Exam - Constitutional Appears: No Acute Distress, Chronically Ill - Head Exam Head Exam: NORMAL INSPECTION - ENT Exam ENT Exam: Mucous Membranes Moist - Neck Exam Neck exam: Negative for: Meningismus - Respiratory Exam Respiratory Exam: Decreased Breath Sounds - Cardiovascular Exam Cardiovascular Exam: +S1, +S2 - GI/Abdominal Exam GI & Abdominal Exam: Soft. absent: Tenderness - Extremities Exam Additional comments: both lower extremities with edema, swelling, erythema and some weeping Results - Vital Signs Recent Vital Signs: Last Vital Signs Temp 98.6 F 04/22/18 08:24 Pulse 167 H 04/22/18 09:25 Resp 18 04/22/18 08:24 BP 148/88 04/22/18 09:25 Pulse Ox 100 04/22/18 08:24 - Labs Result Diagrams: 04/22/18 09:00 04/22/18 09:00 Labs: Laboratory Results - last 24 hr 04/22/18 04/22/18 04/22/18 09:00 09:00 09:00 WBC 26.8 H* D RBC 3.81 Hgb 11.8 L Hct 34.9 L MCV 91.6 MCH 31.0 MCHC 33.8 RDW 14.4 Plt Count 410 MPV 9.3 Gran % 93.1 H Lymph % (Auto) 1.6 L [place] % (Auto) 5.1 Eos % (Auto) 0.1 L Baso % (Auto) 0.1 Gran # 24.94 H Lymph # (Auto) 0.4 L [place] # (Auto) 1.4 H Eos # (Auto) 0.0 Baso # (Auto) 0.04 Neutrophils % (Manual) 87 H Band Neutrophils % 2 Lymphocytes % (Manual) 2 L Monocytes % (Manual) 7 H Eosinophils % (Manual) 2 Platelet Evaluation Normal PT 19.4 H INR 1.67 APTT 43.1 H pO2 VBG pH VBG pCO2 VBG HCO3 VBG Total CO2 VBG O2 Sat (Calc) VBG Base Excess VBG Potassium Sodium Chloride Glucose Lactate FiO2 Potassium Carbon Dioxide Anion Gap BUN Creatinine Est GFR ( Amer) Est GFR (Non-Af Amer) Random Glucose Calcium Magnesium Total Bilirubin AST ALT Alkaline Phosphatase Lactate Dehydrogenase Total Creatine Kinase Troponin I NT-Pro-B Natriuret Pep Total Protein Albumin Globulin Albumin/Globulin Ratio Venous Blood Potassium Urine Color Yellow Urine Appearance Clear Urine pH 6.0 Ur Specific [place] 1.025 Urine Protein 30 H Urine Glucose (UA) 250 H Urine Ketones Trace H Urine Blood Trace-lysed H Urine Nitrate Negative Urine Bilirubin Negative Urine Urobilinogen 1.0 H Ur Leukocyte Esterase Negative Urine RBC 2 - 5 Urine WBC 0 - 2 Ur Epithelial Cells 0 - 2 Amorphous Sediment Small Urine Bacteria Many Coarse Granular Casts Trace H Urine Other Uyeast Blood Type Antibody Screen BBK History Checked 04/22/18 04/22/18 04/22/18 09:00 09:00 09:00 WBC RBC Hgb Hct MCV MCH MCHC RDW Plt Count MPV Gran % Lymph % (Auto) [place] % (Auto) Eos % (Auto) Baso % (Auto) Gran # Lymph # (Auto) [place] # (Auto) Eos # (Auto) Baso # (Auto) Neutrophils % (Manual) Band Neutrophils % Lymphocytes % (Manual) Monocytes % (Manual) Eosinophils % (Manual) Platelet Evaluation PT INR APTT pO2 24 L VBG pH 7.35 VBG pCO2 41.0 VBG HCO3 22.6 VBG Total CO2 23.9 VBG O2 Sat (Calc) 45.9 VBG Base Excess -2.9 L VBG Potassium 6.1 H Sodium 126.0 L 127 L Chloride 93.0 L 93 L Glucose 316 H Lactate 3.0 H FiO2 21.0 Potassium 6.0 H* D Carbon Dioxide 21 Anion Gap 19 BUN 33 H Creatinine 1.6 H Est GFR ( Amer) 54 Est GFR (Non-Af Amer) 44 Random Glucose 285 H Calcium 9.0 Magnesium 1.7 Total Bilirubin 1.6 H AST 24 ALT 28 Alkaline Phosphatase 81 Lactate Dehydrogenase 784 H Total Creatine Kinase 79 Troponin I < 0.01 NT-Pro-B Natriuret Pep 4330 H Total Protein 6.7 Albumin 3.3 Globulin 3.4 Albumin/Globulin Ratio 1.0 L Venous Blood Potassium 6.1 H Urine Color Urine Appearance Urine pH Ur Specific [place] Urine Protein Urine Glucose (UA) Urine Ketones Urine Blood Urine Nitrate Urine Bilirubin Urine Urobilinogen Ur Leukocyte Esterase Urine RBC Urine WBC Ur Epithelial Cells Amorphous Sediment Urine Bacteria Coarse Granular Casts Urine Other Blood Type A POSITIVE Antibody Screen Negative BBK History Checked Patient has bt Assessment & Plan - Assessment and Plan (Free Text) Plan: Assessment consider severe sepsis with acute on chronic renal failure due to bilateral lower extremity cellulitis in this patient with chronic venous stasis and lymphedema and history of lower extremity cellulitis chronic lower extremity edema CAD HTN atrial fibrillation DM JOSELINE morbid obesity with BMI 42 Plan Started Zyvox and Azactam (Was given Vancomycin and Zosyn in the ED) pending blood cx follow up Podiatry evaluation and recommendations will monitor clinically
[2018-04-22] MEDS: Piperacillin/Tazobact 3.375 gm 100 ML IVPB SCH (17:32)
[2018-04-22] MEDS ORDERED: Albuterol-Ipratrop 3 mg / 0.5 (3 ml) UD IH PRN (17:35)
[2018-04-22 19:02] LABS: CALCIUM 8.8 mg/dL (8.4-10.5)
--- NOTE | 2018-04-22 21:34 | CARD ---
APPROVED REPORT Date of service: 04/22/2018 EKG Measurement Heart [id number] <Conclusion> Atrial fibrillation with rapid ventricular response with premature ventricular or aberrantly conducted complexes Abnormal ECG
[2018-04-22] MEDS: Aztreonam 1 Gm in NS 100mL 100 ML IVPB SCH (21:58)
[2018-04-22] MEDS: Insulin Detemir 100 units/ml Vial (Levemir) SC SCH (21:58)
[2018-04-22] MEDS: Linezolid 600 mg in D5W 300 ml 600 MG/300 ML BAG IVPB SCH (21:59)
[2018-04-22] MEDS: Insulin Reg-MEDIUM-Coverage SC SCH (22:34)
[2018-04-23] MEDS: Piperacillin/Tazobact 3.375 gm 100 ML IVPB SCH (00:24)
[2018-04-23] MEDS: Pantoprazole 40 mg EC Tab PO SCH (05:32)
[2018-04-23] MEDS: Aztreonam 1 Gm in NS 100mL 100 ML IVPB SCH ×3 (05:32→21:29)
[2018-04-23] MEDS ORDERED: Insulin Reg-MEDIUM-Coverage SC SCH (07:30)
[2018-04-23 08:46] LABS: BASO # 0.03 K/mm3 (0.0-2.0); BASO % 0.2 % (0.0-3.0); EOS # 0.4 (0.0-0.7); EOS % 2.8 % (1.5-5.0); GRAN # 11.65 (1.4-6.5); GRAN % 83.1 % (50.0-68.0); HEMOGLOBIN 11.8 g/dL (14.0-18.0); LYMPH # 1.2 (1.2-3.4); LYMPH % 8.5 % (22.0-35.0); MEAN CELL VOLUME 89.8 fl (80.0-105.0); MEAN CORPUSCULAR HEMOGLOBIN 30.8 pg (25.0-35.0); MEAN CORPUSCULAR HGB CONC 34.3 g/dl (31.0-37.0); MEAN PLATELET VOLUME 8.7 fl (7.0-11.0); MONO # 0.8 (0.1-0.6); MONO % 5.4 % (1.0-6.0); RBC 3.83 10^6/uL (3.5-6.1); RED CELL DISTRIBUTION WIDTH 14.2 % (11.5-14.5)
[2018-04-23 08:59] LABS: ALB/GLOB RATIO 0.9 (1.1-1.8); ALBUMIN 3.6 g/dL (3.0-4.8); ALT/SGPT 20 U/L (7-56); AST/SGOT 30 U/L (17-59); BLOOD UREA NITROGEN 29 mg/dL (7-21); CALCIUM 8.1 mg/dL (8.4-10.5); GFR NON-AFRICAN AMERICAN 56
[2018-04-23] MEDS: Linezolid 600 mg in D5W 300 ml 600 MG/300 ML BAG IVPB SCH ×2 (09:08→23:16)
[2018-04-23] MEDS: Insulin Reg-MEDIUM-Coverage SC SCH ×4 (09:10→23:17)
[2018-04-23] MEDS: Insulin Lispro 1 UNITS/0.01 ML SC SCH ×3 (09:10→17:24)
[2018-04-23] MEDS: diltiaZEM IVPB 100mg in NS 100 ML IV PRN ×2 (09:20→17:45)
[2018-04-23] MEDS ORDERED: Vancomycin 1gm in NS 250ml 1 GM/250 ML BAG IVPB SCH (10:00)
--- NOTE | 2018-04-23 11:10 | CP.PCM.PN ---
Subjective - Date & Time of Evaluation Date of Evaluation: 04/23/18 Time of Evaluation: 09:50 - Subjective Subjective: Patient still complaining of pain in the feet and legs, no fevers, no nausea, no diarrhea. Objective - Vital Signs/Intake and Output Vital Signs (last 24 hours): Temp Pulse Resp BP Pulse Ox 98.4 F 110 H 20 131/70 99 04/23/18 00:01 04/23/18 02:00 04/23/18 00:01 04/23/18 00:01 04/23/18 00:01 Intake and Output: 04/22/18 04/23/18 18:59 06:59 Intake Total 340 340 Output Total 300 275 Balance 40 65 - Medications Medications: Current Medications Albuterol/Ipratropium (Duoneb 3 Mg/0.5 Mg (3 Ml) Ud) 3 ml IH [id number] PRN PRN Reason: Wheezing Last Admin: 04/22/18 18:14 Dose: 3 ml Atorvastatin Calcium (Lipitor) 10 mg PO DIN [facility] Last Admin: 04/22/18 17:31 Dose: 10 mg Dabigatran (Pradaxa) 150 mg PO BID SHAHEED PRN Reason: Protocol Last Admin: 04/22/18 17:31 Dose: 150 mg Furosemide (Lasix) 40 mg IVP Q12 [facility] Last Admin: 04/22/18 21:57 Dose: 40 mg diltiaZEM IVPB 100mg in NS (Cardizem 100mg In Ns) 100 mls @ 5 mls/hr IV .Q20H PRN; Protocol; 5 MG/HR PRN Reason: TITRATE PER MD ORDER Last Admin: 04/22/18 23:31 Dose: 10 mg/hr, 10 mls/hr Aztreonam (Azactam 1 Gm) 100 mls @ 100 mls/hr IVPB Q8 SHAHEED PRN Reason: Protocol Stop: 04/29/18 22:01 Last Admin: 04/23/18 05:32 Dose: 100 mls/hr Linezolid (Zyvox 600mg/300ml D5w) 600 mg in 300 mls @ 200 mls/hr IVPB Q12 SHAHEED PRN Reason: Protocol Stop: 04/29/18 22:01 Last Admin: 04/22/18 21:59 Dose: 200 mls/hr Insulin Detemir (Levemir) 80 unit SC HS [facility] Last Admin: 04/22/18 21:58 Dose: 80 units Insulin Human Lispro (Humalog) 30 units SC AC [facility] Last Admin: 04/22/18 16:54 Dose: 30 u Insulin Human Regular (Humulin R Med) 0 units SC ACHS SHAHEED PRN Reason: Protocol Last Admin: 04/22/18 22:34 Dose: 4 units Metoprolol Tartrate (Lopressor) 5 mg IVP Q6 PRN PRN Reason: Heart rate Last Admin: 04/22/18 19:13 Dose: 5 mg Pantoprazole Sodium (Protonix Ec Tab) 40 mg PO 0600 [facility] Last Admin: 04/23/18 05:32 Dose: 40 mg - Labs Labs: 04/22/18 18:30 PT 19.4 SECONDS (9.4-12.5) H 04/22/18 09:00 INR 1.67 04/22/18 09:00 APTT 43.1 Seconds (25.1-36.5) H 04/22/18 09:00 - Constitutional Appears: No Acute Distress, Chronically Ill - Head Exam Head Exam: NORMAL INSPECTION - Respiratory Exam Respiratory Exam: Decreased Breath Sounds - Cardiovascular Exam Cardiovascular Exam: +S1, +S2 - GI/Abdominal Exam GI & Abdominal Exam: Soft. absent: Tenderness - Extremities Exam Additional comments: both lower extremities with erythema and swelling with areas of ulceration Assessment and Plan - Assessment and Plan (Free Text) Plan: Assessment severe sepsis with acute on chronic renal failure due to bilateral lower extremity cellulitis in this patient with chronic venous stasis and lymphedema and history of lower extremity cellulitis, slowly improving chronic lower extremity edema CAD HTN atrial fibrillation DM JOSELINE morbid obesity with BMI 42 Plan continue Zyvox and Azactam day 2 (Was given Vancomycin and Zosyn in the ED); blood cx are negative; follow up wound cx from the ulcers follow up Podiatry evaluation and recommendations will continue to monitor clinically
[2018-04-23] MEDS: Oxycodone/Acetaminophen 10/325 mg Tab PO PRN ×2 (11:26→17:46)
[2018-04-23] MEDS: diltiaZEM 240 mg/24 Hours CD Cap PO SCH (11:26)
--- NOTE | 2018-04-23 13:03 | CP.PCM.CON ---
<Rossana Sung - Last Filed: 04/23/18 14:05> History of Present Illness - History of Present Illness History of Present Illness: Podiatry Consult Note - Drs. Meadows/Vincent 58 year old male patient PMHx atrial fib, DM, CAD, venous stasis ulcers, HTN, COPD, JOSELINE seen and evaluated at bedside for lower extremity ulcerations + swelling. Patient well known to podiatry service. Patient presented to ED yesterday s/p mechanical fall after "not feeling well" on his way to his wound care center appointment. Of note, patient was recently admitted for confusion, and was discharged on 04/16/18 with unna boots to bilateral lower extremities. Patient states unna boots fell off, and noticed that his legs were more red, hot , and swollen than usual with associated weeping and 10/10 pain. Patient denies N/V/D/F/C/SOB/MCGUIRE/dizziness. Review of Systems - Review of Systems All systems: reviewed and no additional remarkable complaints except (as per HPI ) Past Patient History - Infectious Disease Hx of Infectious Diseases: None - Tetanus Immunizations Tetanus Immunization: Unknown - Past Social History Smoking Status: Former Smoker - CARDIAC Hx Cardiac Disorders: Yes Hx Congestive Heart Failure: Yes Hx Hypertension: Yes - PULMONARY Hx Respiratory Disorders: Yes Hx Sleep Apnea: Yes - NEUROLOGICAL Hx Neurological Disorder: Yes Other/Comment: tremors - HEENT Hx HEENT Problems: Yes Other/Comment: glasses - RENAL Hx Renal Failure: Yes (ARF 11/2014) - ENDOCRINE/METABOLIC Hx Diabetes Mellitus Type 2: Yes - HEMATOLOGICAL/ONCOLOGICAL Hx Blood Disorders: No - INTEGUMENTARY Hx Dermatological Problems: No Other/Comment: cellulitis on sudhir lower ext. Chronic venous insufficiency ( previous triage) - MUSCULOSKELETAL/RHEUMATOLOGICAL Hx Falls: No - GASTROINTESTINAL Hx Gastroesophageal Reflux: Yes - GENITOURINARY/GYNECOLOGICAL Hx Genitourinary Disorders: No - PSYCHIATRIC Hx Psychophysiologic Disorder: Yes Hx Anxiety: Yes Hx Substance Use: No - SURGICAL HISTORY Hx Appendectomy: Yes Hx Cardiac Catheterization: Yes (04/2014) Hx Coronary Stent: Yes - ANESTHESIA Hx Anesthesia: Yes Hx Anesthesia Reactions: No Hx Malignant Hyperthermia: No Meds Allergies/Adverse Reactions: Allergies Allergy/AdvReac Type Severity Reaction Status Date / Time meropenem [From Merrem] AdvReac PAIN Verified 04/22/18 08:31 - Medications Medications: Current Medications Albuterol/Ipratropium (Duoneb 3 Mg/0.5 Mg (3 Ml) Ud) 3 ml IH [id number] PRN PRN Reason: Wheezing Last Admin: 04/22/18 18:14 Dose: 3 ml Atorvastatin Calcium (Lipitor) 10 mg PO DIN [facility] Last Admin: 04/22/18 17:31 Dose: 10 mg Dabigatran (Pradaxa) 150 mg PO BID [facility] PRN Reason: Protocol Last Admin: 04/23/18 09:09 Dose: 150 mg Diltiazem HCl (Cardizem Cd) 240 mg PO DAILY [facility] Last Admin: 04/23/18 11:26 Dose: 240 mg Furosemide (Lasix) 40 mg IVP Q12 [facility] Last Admin: 04/23/18 09:09 Dose: 40 mg diltiaZEM IVPB 100mg in NS (Cardizem 100mg In Ns) 100 mls @ 5 mls/hr IV .Q20H PRN; Protocol; 5 MG/HR PRN Reason: TITRATE PER MD ORDER Last Admin: 04/23/18 09:20 Dose: 10 mg/hr, 10 mls/hr Aztreonam (Azactam 1 Gm) 100 mls @ 100 mls/hr IVPB Q8 [facility] PRN Reason: Protocol Stop: 04/29/18 22:01 Last Admin: 04/23/18 05:32 Dose: 100 mls/hr Linezolid (Zyvox 600mg/300ml D5w) 600 mg in 300 mls @ 200 mls/hr IVPB Q12 [facility] PRN Reason: Protocol Stop: 04/29/18 22:01 Last Admin: 04/23/18 09:08 Dose: 200 mls/hr Insulin Detemir (Levemir) 80 unit SC HS [facility] Last Admin: 04/22/18 21:58 Dose: 80 units Insulin Human Lispro (Humalog) 30 units SC AC [facility] Last Admin: 04/23/18 12:11 Dose: 30 u Insulin Human Regular (Humulin R Med) 0 units SC ACHS [facility] PRN Reason: Protocol Last Admin: 04/23/18 12:10 Dose: 3 units Metoprolol Tartrate (Lopressor) 5 mg IVP Q6 PRN PRN Reason: Heart rate Last Admin: 09/04/18 19:13 Dose: 5 mg Oxycodone/Acetaminophen (Percocet 10/325 Mg Tab) 1 tab PO Q4H PRN PRN Reason: Pain, moderate (4-7) Last Admin: 04/23/18 11:26 Dose: 1 tab Pantoprazole Sodium (Protonix Ec Tab) 40 mg PO 0600 [facility] Last Admin: 04/23/18 05:32 Dose: 40 mg Physical Exam - Constitutional Appears: Non-toxic, No Acute Distress - Extremities Exam Additional comments: VASC: Nonpalpable DP and PT pulses secondary to chronic indurated edema b/l. NEURO: Gross sensation absent b/l. DERM: Ulceration noted to lateral aspect of right foot styloid process extending down to subcutaneous tissue - ulcer noted to have a mixed fibrogranular base and maceration periwound; serosanguinous drainage present; malodor present; no tracking present; no purulence; no fluctuance. Ulceration noted to dorsal aspect of left hallux extending down to subcutaneous tissue - ulcer noted to have a mixed fibrogranular base and maceration periwound; serosanguinous drainage present; malodor present; no fluctuance; no purulence; no undermining; no tracking; no tunneling. Multiple small ulcerations to bilateral legs with malodor. Deep rubor present to bilateral lower extremities from knee joint extending distally into digits. Abrasion noted to left knee. ORTHO: Diffuse pain on palpation noted to bilateral LE. ROM limited secondary to chronic indurated edema b/l. - Neurological Exam Neurological exam: Alert, Oriented x3 - Psychiatric Exam Psychiatric exam: Normal Affect, Normal Mood Results - Vital Signs Recent Vital Signs: Last Vital Signs Temp 97.6 F 04/23/18 11:54 Pulse 101 H 04/23/18 11:54 Resp 20 04/23/18 11:54 BP 116/75 04/23/18 11:54 Pulse Ox 98 04/23/18 06:00 - Labs Result Diagrams: 04/23/18 08:30 04/23/18 08:30 Labs: Laboratory Results - last 24 hr 04/22/18 04/22/18 04/22/18 14:00 16:59 18:30 WBC RBC Hgb Hct MCV MCH MCHC RDW Plt Count MPV Gran % Lymph % (Auto) [place] % (Auto) Eos % (Auto) Baso % (Auto) Gran # Lymph # (Auto) [place] # (Auto) Eos # (Auto) Baso # (Auto) pO2 23 L VBG pH 7.30 L VBG pCO2 48.0 VBG HCO3 23.6 VBG Total CO2 25.1 VBG O2 Sat (Calc) 40.6 VBG Base Excess -3.2 L VBG Potassium 5.5 H Sodium 128.0 L 133 Chloride 94.0 L 96 L Glucose 281 H Lactate 2.8 H FiO2 21.0 Potassium 4.5 Carbon Dioxide 23 Anion Gap 19 BUN 31 H Creatinine 1.6 H Est GFR ( Amer) 54 Est GFR (Non-Af Amer) 44 POC Glucose (mg/dL) 305 H Random Glucose 296 H Calcium 8.8 Total Bilirubin AST ALT Alkaline Phosphatase C-Reactive Protein 336.60 H Total Protein Albumin Globulin Albumin/Globulin Ratio Procalcitonin Venous Blood Potassium 5.5 H 04/22/18 04/22/18 04/23/18 18:30 21:20 02:04 WBC RBC Hgb Hct MCV MCH MCHC RDW Plt Count MPV Gran % Lymph % (Auto) [place] % (Auto) Eos % (Auto) Baso % (Auto) Gran # Lymph # (Auto) [place] # (Auto) Eos # (Auto) Baso # (Auto) pO2 VBG pH VBG pCO2 VBG HCO3 VBG Total CO2 VBG O2 Sat (Calc) VBG Base Excess VBG Potassium Sodium Chloride Glucose Lactate FiO2 Potassium Carbon Dioxide Anion Gap BUN Creatinine Est GFR ( Amer) Est GFR (Non-Af Amer) POC Glucose (mg/dL) > 500 H* 296 H Random Glucose Calcium Total Bilirubin AST ALT Alkaline Phosphatase C-Reactive Protein Total Protein Albumin Globulin Albumin/Globulin Ratio Procalcitonin 4.44 H Venous Blood Potassium 04/23/18 04/23/18 04/23/18 07:17 08:30 08:30 WBC 14.0 H D RBC 3.83 Hgb 11.8 L Hct 34.4 L MCV 89.8 MCH 30.8 MCHC 34.3 RDW 14.2 Plt Count 399 MPV 8.7 Gran % 83.1 H Lymph % (Auto) 8.5 L [place] % (Auto) 5.4 Eos % (Auto) 2.8 Baso % (Auto) 0.2 Gran # 11.65 H Lymph # (Auto) 1.2 [place] # (Auto) 0.8 H Eos # (Auto) 0.4 Baso # (Auto) 0.03 pO2 VBG pH VBG pCO2 VBG HCO3 VBG Total CO2 VBG O2 Sat (Calc) VBG Base Excess VBG Potassium Sodium 131 L Chloride 94 L Glucose Lactate FiO2 Potassium 3.6 Carbon Dioxide 24 Anion Gap 18 BUN 29 H Creatinine 1.3 Est GFR ( Amer) > 60 Est GFR (Non-Af Amer) 56 POC Glucose (mg/dL) 180 H Random Glucose 144 H Calcium 8.1 L Total Bilirubin 0.8 AST 30 ALT 20 Alkaline Phosphatase 72 C-Reactive Protein Total Protein 7.7 Albumin 3.6 Globulin 4.0 Albumin/Globulin Ratio 0.9 L Procalcitonin Venous Blood Potassium 04/23/18 11:41 WBC RBC Hgb Hct MCV MCH MCHC RDW Plt Count MPV Gran % Lymph % (Auto) [place] % (Auto) Eos % (Auto) Baso % (Auto) Gran # Lymph # (Auto) [place] # (Auto) Eos # (Auto) Baso # (Auto) pO2 VBG pH VBG pCO2 VBG HCO3 VBG Total CO2 VBG O2 Sat (Calc) VBG Base Excess VBG Potassium Sodium Chloride Glucose Lactate FiO2 Potassium Carbon Dioxide Anion Gap BUN Creatinine Est GFR ( Amer) Est GFR (Non-Af Amer) POC Glucose (mg/dL) 237 H Random Glucose Calcium Total Bilirubin AST ALT Alkaline Phosphatase C-Reactive Protein Total Protein Albumin Globulin Albumin/Globulin Ratio Procalcitonin Venous Blood Potassium Assessment & Plan - Assessment and Plan (Free Text) Assessment: 58 year old male with PMH of lower extremity cellulitis, chronic lower extremity edema, CAD, HTN, atrial fibrillation, DM, JOSELINE, morbid obesity with BMI 42 with chronic venous stasis ulcerations, severe LE edema, severe sepsis Plan: Patient seen and evaluated alongside attending, Dr. Meadows Afebrile, WBC 14.0 Bilateral LE MRI ordered, f/u Bilateral LE arterial duplex ordered, f/u Local wound care performed; plan for QD dressing changes- Wounds cleansed with betadine and dressed with maxsorb, DSD Continue LE elevation Continue abx per ID - Aztreonam IV, Linezolid IV; Vancomycin & Zosyn given in ED Pain control per primary Podiatry will continue to follow <Jolene Meadows - Last Filed: 04/23/18 16:31> Meds - Medications Medications: Current Medications Albuterol/Ipratropium (Duoneb 3 Mg/0.5 Mg (3 Ml) Ud) 3 ml IH [id number] PRN PRN Reason: Wheezing Last Admin: 04/22/18 18:14 Dose: 3 ml Atorvastatin Calcium (Lipitor) 10 mg PO DIN [facility] Last Admin: 04/22/18 17:31 Dose: 10 mg Dabigatran (Pradaxa) 150 mg PO BID [facility] PRN Reason: Protocol Last Admin: 04/23/18 09:09 Dose: 150 mg Diltiazem HCl (Cardizem Cd) 240 mg PO DAILY [facility] Last Admin: 04/23/18 11:26 Dose: 240 mg Furosemide (Lasix) 40 mg IVP Q12 [facility] Last Admin: 04/23/18 09:09 Dose: 40 mg diltiaZEM IVPB 100mg in NS (Cardizem 100mg In Ns) 100 mls @ 5 mls/hr IV .Q20H PRN; Protocol; 5 MG/HR PRN Reason: TITRATE PER MD ORDER Last Admin: 04/23/18 09:20 Dose: 10 mg/hr, 10 mls/hr Aztreonam (Azactam 1 Gm) 100 mls @ 100 mls/hr IVPB Q8 SHAHEED PRN Reason: Protocol Stop: 04/29/18 22:01 Last Admin: 04/23/18 14:36 Dose: 100 mls/hr Linezolid (Zyvox 600mg/300ml D5w) 600 mg in 300 mls @ 200 mls/hr IVPB Q12 [facility]HEED PRN Reason: Protocol Stop: 04/29/18 22:01 Last Admin: 04/23/18 09:08 Dose: 200 mls/hr Insulin Detemir (Levemir) 80 unit SC HS [facility] Last Admin: 04/22/18 21:58 Dose: 80 units Insulin Human Lispro (Humalog) 30 units SC AC [facility] Last Admin: 04/23/18 12:11 Dose: 30 u Insulin Human Regular (Humulin R Med) 0 units SC ACHS [facility] PRN Reason: Protocol Last Admin: 04/23/18 12:10 Dose: 3 units Metoprolol Tartrate (Lopressor) 5 mg IVP Q6 PRN PRN Reason: Heart rate Last Admin: 04/22/18 19:13 Dose: 5 mg Oxycodone/Acetaminophen (Percocet 10/325 Mg Tab) 1 tab PO Q4H PRN PRN Reason: Pain, moderate (4-7) Last Admin: 04/23/18 11:26 Dose: 1 tab Pantoprazole Sodium (Protonix Ec Tab) 40 mg PO 0600 [facility] Last Admin: 04/23/18 05:32 Dose: 40 mg Results - Vital Signs Recent Vital Signs: Last Vital Signs Temp 97.6 F 04/23/18 11:54 Pulse 101 H 04/23/18 11:54 Resp 20 04/23/18 11:54 BP 116/75 04/23/18 11:54 Pulse Ox 98 04/23/18 06:00 - Labs Result Diagrams: 04/23/18 08:30 04/23/18 08:30 Labs: Laboratory Results - last 24 hr 04/22/18 04/22/18 04/22/18 16:59 18:30 18:30 WBC RBC Hgb Hct MCV MCH MCHC RDW Plt Count MPV Gran % Lymph % (Auto) [place] % (Auto) Eos % (Auto) Baso % (Auto) Gran # Lymph # (Auto) [place] # (Auto) Eos # (Auto) Baso # (Auto) Sodium 133 Potassium 4.5 Chloride 96 L Carbon Dioxide 23 Anion Gap 19 BUN 31 H Creatinine 1.6 H Est GFR ( Amer) 54 Est GFR (Non-Af Amer) 44 POC Glucose (mg/dL) 305 H Random Glucose 296 H Calcium 8.8 Total Bilirubin AST ALT Alkaline Phosphatase C-Reactive Protein 336.60 H Total Protein Albumin Globulin Albumin/Globulin Ratio Procalcitonin 4.44 H 04/22/18 04/23/18 04/23/18 21:20 02:04 07:17 WBC RBC Hgb Hct MCV MCH MCHC RDW Plt Count MPV Gran % Lymph % (Auto) [place] % (Auto) Eos % (Auto) Baso % (Auto) Gran # Lymph # (Auto) [place] # (Auto) Eos # (Auto) Baso # (Auto) Sodium Potassium Chloride Carbon Dioxide Anion Gap BUN Creatinine Est GFR ( Amer) Est GFR (Non-Af Amer) POC Glucose (mg/dL) > 500 H* 296 H 180 H Random Glucose Calcium Total Bilirubin AST ALT Alkaline Phosphatase C-Reactive Protein Total Protein Albumin Globulin Albumin/Globulin Ratio Procalcitonin 04/23/18 04/23/18 04/23/18 08:30 08:30 11:41 WBC 14.0 H D RBC 3.83 Hgb 11.8 L Hct 34.4 L MCV 89.8 MCH 30.8 MCHC 34.3 RDW 14.2 Plt Count 399 MPV 8.7 Gran % 83.1 H Lymph % (Auto) 8.5 L [place] % (Auto) 5.4 Eos % (Auto) 2.8 Baso % (Auto) 0.2 Gran # 11.65 H Lymph # (Auto) 1.2 [place] # (Auto) 0.8 H Eos # (Auto) 0.4 Baso # (Auto) 0.03 Sodium 131 L Potassium 3.6 Chloride 94 L Carbon Dioxide 24 Anion Gap 18 BUN 29 H Creatinine 1.3 Est GFR ( Amer) > 60 Est GFR (Non-Af Amer) 56 POC Glucose (mg/dL) 237 H Random Glucose 144 H Calcium 8.1 L Total Bilirubin 0.8 AST 30 ALT 20 Alkaline Phosphatase 72 C-Reactive Protein Total Protein 7.7 Albumin 3.6 Globulin 4.0 Albumin/Globulin Ratio 0.9 L Procalcitonin Attending/Attestation - Attestation I have personally seen and examined this patient.: Yes I have fully participated in the care of the patient.: Yes I have reviewed all pertinent clinical information: Yes
--- NOTE | 2018-04-23 18:22 | CP.PCM.PN ---
<Nitish Madrigal - Last Filed: 04/23/18 18:57> Subjective - Date & Time of Evaluation Date of Evaluation: 04/23/18 Time of Evaluation: 07:00 - Subjective Subjective: Pt seen and examined this morning. Pt reports pain of BL LE. Pt denies chest pain, SOB, fever, or chills. Objective - Vital Signs/Intake and Output Vital Signs (last 24 hours): Temp Pulse Resp BP Pulse Ox 98 F 95 H 20 123/64 98 04/23/18 18:00 04/23/18 18:00 04/23/18 18:00 04/23/18 18:00 04/23/18 06:00 Intake and Output: 04/23/18 04/23/18 06:59 18:59 Intake Total 340 200 Output Total 275 Balance 65 200 - Medications Medications: Current Medications Albuterol/Ipratropium (Duoneb 3 Mg/0.5 Mg (3 Ml) Ud) 3 ml IH [id number] PRN PRN Reason: Wheezing Last Admin: 04/22/18 18:14 Dose: 3 ml Atorvastatin Calcium (Lipitor) 10 mg PO DIN [facility] Last Admin: 04/23/18 17:40 Dose: 10 mg Dabigatran (Pradaxa) 150 mg PO BID [facility] PRN Reason: Protocol Last Admin: 04/23/18 17:40 Dose: 150 mg Diltiazem HCl (Cardizem Cd) 240 mg PO DAILY [facility] Last Admin: 04/23/18 11:26 Dose: 240 mg Furosemide (Lasix) 40 mg IVP Q12 [facility] Last Admin: 04/23/18 09:09 Dose: 40 mg diltiaZEM IVPB 100mg in NS (Cardizem 100mg In Ns) 100 mls @ 5 mls/hr IV .Q20H PRN; Protocol; 5 MG/HR PRN Reason: TITRATE PER MD ORDER Last Admin: 04/23/18 17:45 Dose: 10 mg/hr, 10 mls/hr Aztreonam (Azactam 1 Gm) 100 mls @ 100 mls/hr IVPB Q8 SHAHEED PRN Reason: Protocol Stop: 04/29/18 22:01 Last Admin: 04/23/18 14:36 Dose: 100 mls/hr Linezolid (Zyvox 600mg/300ml D5w) 600 mg in 300 mls @ 200 mls/hr IVPB Q12 [facility] PRN Reason: Protocol Stop: 04/29/18 22:01 Last Admin: 04/23/18 09:08 Dose: 200 mls/hr Insulin Detemir (Levemir) 80 unit SC HS [facility] Last Admin: 04/22/18 21:58 Dose: 80 units Insulin Human Lispro (Humalog) 30 units SC AC [facility] Last Admin: 04/23/18 17:24 Dose: Not Given Insulin Human Regular (Humulin R Med) 0 units SC ACHS [facility] PRN Reason: Protocol Last Admin: 04/23/18 17:24 Dose: Not Given Metoprolol Tartrate (Lopressor) 5 mg IVP Q6 PRN PRN Reason: Heart rate Last Admin: 04/22/18 19:13 Dose: 5 mg Oxycodone/Acetaminophen (Percocet 10/325 Mg Tab) 1 tab PO Q4H PRN PRN Reason: Pain, moderate (4-7) Last Admin: 04/23/18 17:46 Dose: 1 tab Pantoprazole Sodium (Protonix Ec Tab) 40 mg PO 0600 [facility] Last Admin: 04/23/18 05:32 Dose: 40 mg - Labs Labs: 04/23/18 08:30 04/23/18 08:30 PT 19.4 SECONDS (9.4-12.5) H 04/22/18 09:00 INR 1.67 04/22/18 09:00 APTT 43.1 Seconds (25.1-36.5) H 04/22/18 09:00 - Constitutional Appears: No Acute Distress - Head Exam Head Exam: ATRAUMATIC, NORMOCEPHALIC - ENT Exam ENT Exam: Mucous Membranes Moist - Neck Exam Neck Exam: Full ROM - Respiratory Exam Respiratory Exam: Clear to Ausculation Bilateral, NORMAL BREATHING PATTERN. absent: Accessory Muscle Use, Wheezes, Respiratory Distress, Stridor - Cardiovascular Exam Cardiovascular Exam: REGULAR RHYTHM, RRR, +S1, +S2 - GI/Abdominal Exam GI & Abdominal Exam: Soft, Normal Bowel Sounds. absent: Tenderness - Extremities Exam Extremities Exam: Pedal Edema, Tenderness Additional comments: BL LE are erythematous and swollen, with cellulitis Assessment and Plan - Assessment and Plan (Free Text) Assessment: Pt is a 58 yo male with a PMH of DM, atrial fibrillation with RVR, CAD, HTN, venous stasis ulcers, COPD, and obstructive sleep apnea who presents after a mechanical fall with cellulitis on BL LE. Plan: Sepsis - continue Aztreonam 1 gram q8h, Linezolid 600mg IVPB q12h - ID: continue zyvox and azactam day 2, blood cultures negative, recommend follow up with wound cultures from ulcers and follow up with podiatry - CRP 336 - Procal 4.44 Atrial Fibrillation - Pradaxa - lopressor 5mg IVP q6h - cardizem CHF - Lasix 40 IV BID DM - lispro 30 units SC AC - levemir 80 units SC HS - accuchecks Pt seen, examined, and assessment/ plan discussed with Dr Tang. Nitish Madrigal PGY1 Internal Medicine Resident <Jalen Tang - Last Filed: 04/25/18 13:13> Objective - Vital Signs/Intake and Output Vital Signs (last 24 hours): Temp Pulse Resp BP Pulse Ox 98.6 F 84 20 135/84 90 L 04/25/18 12:00 04/25/18 12:00 04/25/18 12:00 04/25/18 12:00 04/25/18 06:00 Intake and Output: 04/25/18 04/25/18 06:59 18:59 Intake Total 990 Output Total 2500 Balance -1510 - Medications Medications: Current Medications Albuterol/Ipratropium (Duoneb 3 Mg/0.5 Mg (3 Ml) Ud) 3 ml IH [id number] PRN PRN Reason: Wheezing Last Admin: 04/22/18 18:14 Dose: 3 ml Atorvastatin Calcium (Lipitor) 10 mg PO DIN [facility] Last Admin: 04/24/18 17:49 Dose: 10 mg Dabigatran (Pradaxa) 150 mg PO BID [facility] PRN Reason: Protocol Last Admin: 04/25/18 09:41 Dose: 150 mg Diltiazem HCl (Cardizem Cd) 240 mg PO DAILY [facility] Last Admin: 04/25/18 09:42 Dose: 240 mg Furosemide (Lasix) 40 mg PO BID [facility] Aztreonam (Azactam 1 Gm) 100 mls @ 100 mls/hr IVPB Q8 [facility] PRN Reason: Protocol Stop: 04/29/18 22:01 Last Admin: 04/25/18 05:25 Dose: 100 mls/hr Linezolid (Zyvox 600mg/300ml D5w) 600 mg in 300 mls @ 200 mls/hr IVPB Q12 [facility] PRN Reason: Protocol Stop: 04/29/18 22:01 Last Admin: 04/25/18 09:42 Dose: 200 mls/hr Insulin Detemir (Levemir) 80 unit SC HS [facility] Last Admin: 04/24/18 22:16 Dose: 80 units Insulin Human Lispro (Humalog) 30 units SC AC [facility] Last Admin: 04/25/18 12:35 Dose: 30 u Insulin Human Regular (Humulin R Med) 0 units SC ACHS [facility] PRN Reason: Protocol Last Admin: 04/25/18 12:35 Dose: 1 units Metoprolol Tartrate (Lopressor) 5 mg IVP Q6 PRN PRN Reason: Heart rate Last Admin: 04/22/18 19:13 Dose: 5 mg Oxycodone/Acetaminophen (Percocet 10/325 Mg Tab) 1 tab PO Q4H PRN PRN Reason: Pain, moderate (4-7) Last Admin: 04/25/18 10:37 Dose: 1 tab Pantoprazole Sodium (Protonix Ec Tab) 40 mg PO 0600 [facility] Last Admin: 04/25/18 05:25 Dose: 40 mg Polyethylene Glycol (Miralax) 17 gm PO DAILY [facility] Last Admin: 04/25/18 10:37 Dose: 17 gm Spironolactone (Aldactone) 25 mg PO BID [facility] Last Admin: 04/25/18 09:41 Dose: 25 mg - Labs Labs: 04/25/18 07:00 04/25/18 07:00 PT 19.4 SECONDS (9.4-12.5) H 04/22/18 09:00 INR 1.67 04/22/18 09:00 APTT 43.1 Seconds (25.1-36.5) H 04/22/18 09:00 Attending/Attestation - Attestation I have personally seen and examined this patient.: Yes I have fully participated in the care of the patient.: Yes I have reviewed all pertinent clinical information, including history, physical exam and plan: Yes Notes (Text): 04/25/18 13:10 Patient was seen and examined with medical language specialist. 58 yrs old male with a PMH of IRDM, chronic atrial fibrillation on anticoagulation with pradaxa), CAD, HTN, venous stasis ulcers, COPD, stage III CKD and obstructive sleep apnea was admitted with sepsis due to bilateral leg cellulitis, acute on chronic diastolic CHF exacerbation, AF with RVR and uncontrolled DM. Sepsis, on IV antibiotics linezolid and aztronam as per ID, blood cultures are negative for any growth.WBC is coming down. Acute on chronic diastolic CHF exacerbation, leg swelling is improving, continue IV lasix, will follow up BUN and creatinin. Hyperkalemia without EKG chnages, is resolved. AF with RVR, better controlled on oral lopressor and cardizem. , continue anticoagulation with Paradexa. Management plan was discussed in detail with patient. Education was provided.
[2018-04-23] MEDS: diltiaZEM IVPB 100mg in NS 100 ML IV SCH (21:28)
[2018-04-23] MEDS: Insulin Detemir 100 units/ml Vial (Levemir) SC SCH (23:17)
--- NOTE | 2018-04-24 01:17 | CON ---
Copied To: Kendell Patel MD Attending MD: Kendell Patel MD DATE: 04/23/2018 CARDIOLOGY CONSULT REASON FOR CONSULTATION: Rapid atrial fibrillation. HISTORY OF PRESENT ILLNESS: The patient is 58 years old male who has a history of chronic atrial fibrillation, congestive heart failure, diabetes, bilateral leg cellulitis, presented because of a fall. According to the patient's emergency room story, the patient fell and stuck between a car door and a tree. Denies any loss of consciousness or headache. The patient did not mention that story to me and when he was asked about why he came to the emergency room, he states that he came because of his foot infection. At this time, the patient denies any chest pain. He is mildly short of breath. He is experiencing bilateral leg pain, swelling and oozing from the right big toe. SOCIAL HISTORY: The patient is a smoker, occasional EtOH abuser. MEDICATIONS: Azactam 1 g intravenously every 8 hours, Cardizem infusion 5 mg/hour, Cardizem CD 240 mg once a day, Humalog insulin, Lasix 40 mg intravenously twice a day, Levemir 80 units subcutaneously at bedtime, Lipitor 10 mg once a day, Lopressor 5 mg intravenously every 6 hours p.r.n., oxycodone one tablet every 4 hours, Pradaxa 150 mg twice a day, Zyvox 600 mg intravenously every 12 hours. REVIEW OF SYSTEMS: The patient has low-grade fever. He denies any retrosternal chest pain. He does report shortness of breath. The patient denies any hemoptysis or hematuria. PHYSICAL EXAMINATION: GENERAL: The patient is an obese, middle-aged male, who does not appear to be in any acute distress. VITAL SIGNS: Blood pressure 116/75, heart rate 101, temperature 97.6, respirations 20. HEENT: Normocephalic. CHEST: Absent breath sound over the bases. HEART: S1 and S2 regular and distant. ABDOMEN: Soft. EXTREMITIES: Bilateral leg and foot cellulitis. LABORATORY DATA: Yesterday's white count was 26.8, today's white count is 14,000. Hemoglobin and hematocrit 11.8 and 34.4, platelet count 399,000. SMA-7: Sodium 131, potassium 3.6, chloride 94, CO2 of 24, glucose 144, BUN 29, creatinine 1.3. On admission, potassium was 6. ProBNP is 4330. INR is 1.61, PTT 43.1. EKG on admission revealed atrial fibrillation with rapid ventricular response with PVCs versus aberrancy, heart rate was 163. Echocardiographic study performed in 12/2016 revealed mild dilated left ventricle with [id number] concentric LVH and normal ejection fraction, moderate dilated right ventricle with moderately reduced right ventricular systolic function. ASSESSMENT: 1. Chronic atrial fibrillation. 2. Bilateral leg and foot cellulitis. Blood culture is negative after 24 hours. However, the most recent right foot culture done on 04/15 were positive for Staphylococcus aureus and Klebsiella oxytoca. 3. Diabetes mellitus. 4. Right ventricular failure. 5. Rule out deep venous thrombosis. However, the most recent venous Doppler on 04/14 was negative. RECOMMENDATIONS: Continue current IV Azactam and IV Zyvox. Continue Cardizem . Continue Lasix 40 mg intravenously twice a day. echocardiographic study to evaluate the right ventricular size and systolic function. The patient will be evaluated by Infectious Disease specialist today. Kendell Patel MD
[2018-04-24] MEDS: diltiaZEM IVPB 100mg in NS 100 ML IV SCH ×2 (03:23→09:35)
[2018-04-24] MEDS: Pantoprazole 40 mg EC Tab PO SCH (05:45)
[2018-04-24] MEDS: Aztreonam 1 Gm in NS 100mL 100 ML IVPB SCH ×3 (05:45→22:19)
--- NOTE | 2018-04-24 05:48 | CP.PCM.PN ---
<RohanNitish Jt - Last Filed: 04/24/18 19:28> Subjective - Date & Time of Evaluation Date of Evaluation: 04/24/18 Time of Evaluation: 05:50 - Subjective Subjective: Pt seen and examined this morning. Pt denies chest pain, SOB, he reports feeling cold. No events overnight, no new complaints. Objective - Vital Signs/Intake and Output Vital Signs (last 24 hours): Temp Pulse Resp BP Pulse Ox 98.0 F 81 20 107/57 L 98 04/24/18 00:01 04/24/18 02:00 04/24/18 00:01 04/24/18 00:01 04/24/18 00:01 Intake and Output: 04/23/18 04/24/18 18:59 06:59 Intake Total 200 1020 Output Total 1450 Balance 200 -430 - Medications Medications: Current Medications Albuterol/Ipratropium (Duoneb 3 Mg/0.5 Mg (3 Ml) Ud) 3 ml IH [id number] PRN PRN Reason: Wheezing Last Admin: 04/22/18 18:14 Dose: 3 ml Atorvastatin Calcium (Lipitor) 10 mg PO DIN [facility] Last Admin: 04/23/18 17:40 Dose: 10 mg Dabigatran (Pradaxa) 150 mg PO BID [facility] PRN Reason: Protocol Last Admin: 04/23/18 17:40 Dose: 150 mg Diltiazem HCl (Cardizem Cd) 240 mg PO DAILY [facility] Last Admin: 04/23/18 11:26 Dose: 240 mg Furosemide (Lasix) 40 mg IVP Q12 [facility] Last Admin: 04/23/18 21:29 Dose: 40 mg Aztreonam (Azactam 1 Gm) 100 mls @ 100 mls/hr IVPB Q8 [facility] PRN Reason: Protocol Stop: 04/29/18 22:01 Last Admin: 04/23/18 21:29 Dose: 100 mls/hr Linezolid (Zyvox 600mg/300ml D5w) 600 mg in 300 mls @ 200 mls/hr IVPB Q12 [facility] PRN Reason: Protocol Stop: 04/29/18 22:01 Last Admin: 04/23/18 23:16 Dose: 200 mls/hr diltiaZEM IVPB 100mg in NS (Cardizem 100mg In Ns) 100 mls @ 10 mls/hr IV .Q10H [facility] PRN Reason: 10 MG/HR Last Admin: 04/24/18 03:23 Dose: 10 mls/hr Insulin Detemir (Levemir) 80 unit SC HS [facility] Last Admin: 04/23/18 23:17 Dose: 80 units Insulin Human Lispro (Humalog) 30 units SC AC [facility] Last Admin: 04/23/18 17:24 Dose: Not Given Insulin Human Regular (Humulin R Med) 0 units SC ACHS [facility] PRN Reason: Protocol Last Admin: 04/23/18 23:17 Dose: 4 units Metoprolol Tartrate (Lopressor) 5 mg IVP Q6 PRN PRN Reason: Heart rate Last Admin: 04/22/18 19:13 Dose: 5 mg Oxycodone/Acetaminophen (Percocet 10/325 Mg Tab) 1 tab PO Q4H PRN PRN Reason: Pain, moderate (4-7) Last Admin: 04/23/18 17:46 Dose: 1 tab Pantoprazole Sodium (Protonix Ec Tab) 40 mg PO 0600 [facility] Last Admin: 04/23/18 05:32 Dose: 40 mg - Labs Labs: 04/23/18 08:30 04/23/18 08:30 PT 19.4 SECONDS (9.4-12.5) H 04/22/18 09:00 INR 1.67 04/22/18 09:00 APTT 43.1 Seconds (25.1-36.5) H 04/22/18 09:00 - Constitutional Appears: No Acute Distress - Head Exam Head Exam: ATRAUMATIC, NORMOCEPHALIC - Eye Exam Eye Exam: EOMI - ENT Exam ENT Exam: Mucous Membranes Moist - Respiratory Exam Respiratory Exam: Clear to Ausculation Bilateral, NORMAL BREATHING PATTERN. absent: Accessory Muscle Use - Cardiovascular Exam Cardiovascular Exam: RRR, +S1, +S2. absent: JVD - GI/Abdominal Exam GI & Abdominal Exam: Soft, Normal Bowel Sounds. absent: Tenderness - Back Exam Back Exam: absent: CVA tenderness (L), CVA tenderness (R) Additional comments: BL LE wrapped to knee/upper nova with bandages - Neurological Exam Neurological Exam: Alert, Awake, Oriented x3 - Psychiatric Exam Psychiatric exam: Normal Affect, Normal Mood - Skin Skin Exam: Dry, Normal Color, Warm Assessment and Plan - Assessment and Plan (Free Text) Assessment: Pt is a 58 yo male with a PMH of DM, AFIB with RVR, CAD, HTN, venous stasis ulcers, COPD, and obstructive sleep apnea who has cellulitis on BL LE. Plan: Sepsis - ID: continue Aztreonam, Linezolid - WBC 13.4 Lower Extremity Cellulitis - podiatry, Vasquezorkin following - MRI: no evidence of osteomyelitis - LE US: relatively normal IGNACIO and PVR examination at rest Atrial Fibrillation - Pradaxa - lopressor 5mg IVP q6h - cardio following CHF - Lasix 40 IV BID - restart aldactone 25mg PO BID DM - lispro 30 units SC AC - levemir 80 units SC HS - accuchecks - DM education Pt seen, examined, and assessment/ plan discussed with Dr Tang. Nitish Madrigal PGY1 Internal Medicine Resident <Jalen Tang - Last Filed: 04/25/18 13:14> Objective - Vital Signs/Intake and Output Vital Signs (last 24 hours): Temp Pulse Resp BP Pulse Ox 98.6 F 84 20 135/84 90 L 04/25/18 12:00 04/25/18 12:00 04/25/18 12:00 04/25/18 12:00 04/25/18 06:00 Intake and Output: 04/25/18 04/25/18 06:59 18:59 Intake Total 990 Output Total 2500 Balance -1510 - Medications Medications: Current Medications Albuterol/Ipratropium (Duoneb 3 Mg/0.5 Mg (3 Ml) Ud) 3 ml IH [id number] PRN PRN Reason: Wheezing Last Admin: 04/22/18 18:14 Dose: 3 ml Atorvastatin Calcium (Lipitor) 10 mg PO DIN [facility] Last Admin: 04/24/18 17:49 Dose: 10 mg Dabigatran (Pradaxa) 150 mg PO BID [facility] PRN Reason: Protocol Last Admin: 04/25/18 09:41 Dose: 150 mg Diltiazem HCl (Cardizem Cd) 240 mg PO DAILY [facility] Last Admin: 04/25/18 09:42 Dose: 240 mg Furosemide (Lasix) 40 mg PO BID [facility] Aztreonam (Azactam 1 Gm) 100 mls @ 100 mls/hr IVPB Q8 [facility] PRN Reason: Protocol Stop: 04/29/18 22:01 Last Admin: 04/25/18 05:25 Dose: 100 mls/hr Linezolid (Zyvox 600mg/300ml D5w) 600 mg in 300 mls @ 200 mls/hr IVPB Q12 [facility] PRN Reason: Protocol Stop: 04/29/18 22:01 Last Admin: 04/25/18 09:42 Dose: 200 mls/hr Insulin Detemir (Levemir) 80 unit SC HS [facility] Last Admin: 04/24/18 22:16 Dose: 80 units Insulin Human Lispro (Humalog) 30 units SC AC [facility] Last Admin: 04/25/18 12:35 Dose: 30 u Insulin Human Regular (Humulin R Med) 0 units SC ACHS [facility] PRN Reason: Protocol Last Admin: 04/25/18 12:35 Dose: 1 units Metoprolol Tartrate (Lopressor) 5 mg IVP Q6 PRN PRN Reason: Heart rate Last Admin: 04/22/18 19:13 Dose: 5 mg Oxycodone/Acetaminophen (Percocet 10/325 Mg Tab) 1 tab PO Q4H PRN PRN Reason: Pain, moderate (4-7) Last Admin: 04/25/18 10:37 Dose: 1 tab Pantoprazole Sodium (Protonix Ec Tab) 40 mg PO 0600 [facility] Last Admin: 04/25/18 05:25 Dose: 40 mg Polyethylene Glycol (Miralax) 17 gm PO DAILY [facility] Last Admin: 04/25/18 10:37 Dose: 17 gm Spironolactone (Aldactone) 25 mg PO BID [facility] Last Admin: 04/25/18 09:41 Dose: 25 mg - Labs Labs: 04/25/18 07:00 04/25/18 07:00 PT 19.4 SECONDS (9.4-12.5) H 04/22/18 09:00 INR 1.67 04/22/18 09:00 APTT 43.1 Seconds (25.1-36.5) H 04/22/18 09:00 Attending/Attestation - Attestation I have personally seen and examined this patient.: Yes I have fully participated in the care of the patient.: Yes I have reviewed all pertinent clinical information, including history, physical exam and plan: Yes Notes (Text): 04/25/18 13:13 Patient was seen and examined with medical records clerk. 58 yrs old male with a PMH of IRDM, chronic atrial fibrillation on anticoagulation with pradaxa), CAD, HTN, venous stasis ulcers, COPD, stage III CKD and obstructive sleep apnea was admitted with sepsis due to bilateral leg cellulitis, acute on chronic diastolic CHF exacerbation, AF with RVR and uncontrolled DM. Sepsis, on IV antibiotics linezolid and aztronam as per ID, blood cultures are negative for any growth.WBC is coming down.MRI of leg is negative for osteomylitis. Acute on chronic diastolic CHF exacerbation, leg swelling is improving, continue IV lasix, will follow up BUN and creatinin. Hyperkalemia without EKG chnages, is resolved. AF with RVR, better controlled on oral lopressor and cardizem. , continue anticoagulation with Paradexa. Management plan was discussed in detail with patient. Education was provided.
[2018-04-24] MEDS: Oxycodone/Acetaminophen 10/325 mg Tab PO PRN ×3 (06:16→23:42)
[2018-04-24] MEDS: Insulin Lispro 1 UNITS/0.01 ML SC SCH ×3 (08:18→17:50)
[2018-04-24] MEDS: Insulin Reg-MEDIUM-Coverage SC SCH ×4 (08:18→22:21)
[2018-04-24] MEDS: diltiaZEM 240 mg/24 Hours CD Cap PO SCH (09:36)
[2018-04-24] MEDS: Linezolid 600 mg in D5W 300 ml 600 MG/300 ML BAG IVPB SCH ×2 (09:36→22:19)
[2018-04-24 09:37] LABS: BASO # 0.03 K/mm3 (0.0-2.0); BASO % 0.2 % (0.0-3.0); EOS # 0.3 (0.0-0.7); EOS % 2.4 % (1.5-5.0); GRAN # 11.43 (1.4-6.5); GRAN % 85.5 % (50.0-68.0); LYMPH # 1.1 (1.2-3.4); LYMPH % 7.9 % (22.0-35.0); MEAN CELL VOLUME 89.5 fl (80.0-105.0); MEAN CORPUSCULAR HEMOGLOBIN 30.8 pg (25.0-35.0); MEAN CORPUSCULAR HGB CONC 34.5 g/dl (31.0-37.0); MEAN PLATELET VOLUME 8.9 fl (7.0-11.0); MONO # 0.5 (0.1-0.6); RBC 3.89 10^6/uL (3.5-6.1); WHITE BLOOD COUNT 13.4 10^3/ul (4.5-11.0)
[2018-04-24 09:58] LABS: ALBUMIN 3.7 g/dL (3.0-4.8); ALT/SGPT 33 U/L (7-56); AST/SGOT 32 U/L (17-59); BLOOD UREA NITROGEN 31 mg/dL (7-21); CALCIUM 8.7 mg/dL (8.4-10.5); GFR NON-AFRICAN AMERICAN 52
--- NOTE | 2018-04-24 11:06 | CP.PCM.PN ---
<Rossana Sung - Last Filed: 04/24/18 13:01> Subjective - Date & Time of Evaluation Date of Evaluation: 04/24/18 Time of Evaluation: 11:06 - Subjective Subjective: Podiatry Consult Note - Drs. Meadows/Vincent 58 year old male patient PMHx atrial fib, DM, CAD, venous stasis ulcers, HTN, COPD, JOSELINE seen and evaluated at bedside for lower extremity ulcerations + swelling. Patient returning from ultrasound at time of visit, plan for MRI later this afternoon. Patient reports pain in lower extremities is well- controlled. Dressings intact bilaterally. No new lower extremity complaints. Denies N/V/D/F/C/SOB/MCGUIRE/dizziness. Objective - Vital Signs/Intake and Output Vital Signs (last 24 hours): Temp Pulse Resp BP Pulse Ox 98.2 F 103 H 19 134/74 97 04/24/18 06:00 04/24/18 09:36 04/24/18 06:00 04/24/18 09:36 04/24/18 06:00 Intake and Output: 04/24/18 04/24/18 06:59 18:59 Intake Total 2170 Output Total 2900 Balance -730 - Medications Medications: Current Medications Albuterol/Ipratropium (Duoneb 3 Mg/0.5 Mg (3 Ml) Ud) 3 ml IH [id number] PRN PRN Reason: Wheezing Last Admin: 04/22/18 18:14 Dose: 3 ml Atorvastatin Calcium (Lipitor) 10 mg PO DIN [facility] Last Admin: 04/23/18 17:40 Dose: 10 mg Dabigatran (Pradaxa) 150 mg PO BID [facility] PRN Reason: Protocol Last Admin: 04/24/18 09:36 Dose: 150 mg Diltiazem HCl (Cardizem Cd) 240 mg PO DAILY [facility] Last Admin: 04/24/18 09:36 Dose: 240 mg Furosemide (Lasix) 40 mg IVP Q12 [facility] Last Admin: 04/24/18 09:35 Dose: 40 mg Aztreonam (Azactam 1 Gm) 100 mls @ 100 mls/hr IVPB Q8 [facility] PRN Reason: Protocol Stop: 04/29/18 22:01 Last Admin: 04/24/18 05:45 Dose: 100 mls/hr Linezolid (Zyvox 600mg/300ml D5w) 600 mg in 300 mls @ 200 mls/hr IVPB Q12 [facility] PRN Reason: Protocol Stop: 04/29/18 22:01 Last Admin: 04/24/18 09:36 Dose: 200 mls/hr Insulin Detemir (Levemir) 80 unit SC HS [facility] Last Admin: 04/23/18 23:17 Dose: 80 units Insulin Human Lispro (Humalog) 30 units SC AC [facility] Last Admin: 04/24/18 08:18 Dose: 30 u Insulin Human Regular (Humulin R Med) 0 units SC ACHS [facility] PRN Reason: Protocol Last Admin: 04/24/18 08:18 Dose: 1 units Metoprolol Tartrate (Lopressor) 5 mg IVP Q6 PRN PRN Reason: Heart rate Last Admin: 04/22/18 19:13 Dose: 5 mg Oxycodone/Acetaminophen (Percocet 10/325 Mg Tab) 1 tab PO Q4H PRN PRN Reason: Pain, moderate (4-7) Last Admin: 04/24/18 06:16 Dose: 1 tab Pantoprazole Sodium (Protonix Ec Tab) 40 mg PO 0600 [facility] Last Admin: 04/24/18 05:45 Dose: 40 mg Spironolactone (Aldactone) 25 mg PO BID [facility] - Labs Labs: 04/24/18 09:20 04/24/18 09:20 PT 19.4 SECONDS (9.4-12.5) H 04/22/18 09:00 INR 1.67 04/22/18 09:00 APTT 43.1 Seconds (25.1-36.5) H 04/22/18 09:00 - Constitutional Appears: Well, Non-toxic, No Acute Distress - Extremities Exam Additional comments: VASC: Nonpalpable DP and PT pulses secondary to chronic indurated edema b/l. NEURO: Gross sensation absent b/l. DERM: Ulceration noted to lateral aspect of right foot styloid process extending down to subcutaneous tissue - ulcer noted to have a mixed fibrogranular base and maceration periwound; serosanguinous drainage present; malodor present; no tracking present; no purulence; no fluctuance. Ulceration noted to dorsal aspect of left hallux extending down to subcutaneous tissue - ulcer noted to have a mixed fibrogranular base and maceration periwound; serosanguinous drainage present; malodor present; no fluctuance; no purulence; no undermining; no tracking; no tunneling. Multiple small ulcerations to bilateral legs with malodor. Deep rubor present to bilateral lower extremities from knee joint extending distally into digits. Abrasion noted to left knee. ORTHO: Diffuse pain on palpation noted to bilateral LE. ROM limited secondary to chronic indurated edema b/l. - Neurological Exam Neurological Exam: Alert, Awake, Oriented x3 - Psychiatric Exam Psychiatric exam: Normal Affect, Normal Mood Assessment and Plan - Assessment and Plan (Free Text) Assessment: 58 year old male with chronic venous stasis ulcerations, severe LE edema, severe sepsis Plan: Patient seen and evaluated alongside attending, Dr. Meadows Afebrile, WBC decreasing 13.4 Bilateral LE MRI ordered, f/u Bilateral LE arterial duplex ordered, f/u report F/u wound cultures Continue local wound care QD - Wounds cleansed with betadine and dressed with maxsorb, DSD Continue LE elevation Continue abx per ID - Aztreonam IV, Linezolid IV Pain control per primary Podiatry will continue to follow <Jolene Meadows - Last Filed: 04/27/18 15:13> Objective - Vital Signs/Intake and Output Vital Signs (last 24 hours): Temp Pulse Resp BP Pulse Ox 97.6 F 120 H 20 127/82 96 04/27/18 12:00 04/27/18 12:00 04/27/18 12:00 04/27/18 12:00 04/27/18 06:00 Intake and Output: 04/27/18 04/27/18 06:59 18:59 Intake Total 1740 Output Total 1500 Balance 240 - Medications Medications: Current Medications Albuterol/Ipratropium (Duoneb 3 Mg/0.5 Mg (3 Ml) Ud) 3 ml IH [id number] PRN PRN Reason: Wheezing Last Admin: 04/22/18 18:14 Dose: 3 ml Atorvastatin Calcium (Lipitor) 10 mg PO DIN [facility] Last Admin: 04/26/18 17:56 Dose: 10 mg Dabigatran (Pradaxa) 150 mg PO BID [facility] PRN Reason: Protocol Last Admin: 04/27/18 09:47 Dose: 150 mg Diltiazem HCl (Cardizem Cd) 240 mg PO DAILY [facility] Last Admin: 04/27/18 09:47 Dose: 240 mg Furosemide (Lasix) 40 mg PO BID [facility] Last Admin: 04/27/18 09:46 Dose: 40 mg Aztreonam (Azactam 1 Gm) 100 mls @ 100 mls/hr IVPB Q8 [facility] PRN Reason: Protocol Stop: 04/29/18 22:01 Last Admin: 04/27/18 14:27 Dose: 100 mls/hr Linezolid (Zyvox 600mg/300ml D5w) 600 mg in 300 mls @ 200 mls/hr IVPB Q12 [facility] PRN Reason: Protocol Stop: 04/29/18 22:01 Last Admin: 04/27/18 09:46 Dose: 200 mls/hr Insulin Detemir (Levemir) 80 unit SC HS [facility] Last Admin: 04/26/18 22:24 Dose: 80 units Insulin Human Lispro (Humalog) 30 units SC AC [facility] Last Admin: 04/27/18 13:21 Dose: Not Given Insulin Human Regular (Humulin R Med) 0 units SC [facility] PRN Reason: Protocol Last Admin: 04/27/18 13:19 Dose: Not Given Metoprolol Tartrate (Lopressor) 5 mg IVP Q6 PRN PRN Reason: Heart rate Last Admin: 04/22/18 19:13 Dose: 5 mg Oxycodone/Acetaminophen (Percocet 10/325 Mg Tab) 1 tab PO Q6H PRN PRN Reason: Pain, severe (8-10) Pantoprazole Sodium (Protonix Ec Tab) 40 mg PO 0600 [facility] Last Admin: 04/27/18 06:50 Dose: 40 mg Polyethylene Glycol (Miralax) 17 gm PO DAILY [facility] Last Admin: 04/27/18 10:13 Dose: 17 gm Spironolactone (Aldactone) 50 mg PO BID [facility] Last Admin: 04/27/18 09:46 Dose: 50 mg - Labs Labs: 04/27/18 07:15 04/27/18 07:15 PT 19.4 SECONDS (9.4-12.5) H 04/22/18 09:00 INR 1.67 04/22/18 09:00 APTT 43.1 Seconds (25.1-36.5) H 04/22/18 09:00 Attending/Attestation - Attestation I have personally seen and examined this patient.: Yes I have fully participated in the care of the patient.: Yes I have reviewed all pertinent clinical information, including history, physical exam and plan: Yes
--- NOTE | 2018-04-24 13:37 | US ---
PROCEDURE: Lower extremity IGNACIO exam HISTORY: Peripheral vascular disease with pain and ulceration. PHYSICIAN(S): Jori Alejandra MD. FINDINGS: The resting IGNACIO's are normal: right, 1.01and left, 1.01. The brachial systolic pressures are symmetric. The low thigh pressures are inaccurate. Low thigh PVR waveforms are relatively normal symmetric The calf PVR waveforms augment normally. No significant gradients are noted across the thighs. The ankle and metatarsal waveforms are relatively normal and symmetric. No significant pressure gradients are noted across the lower legs. IMPRESSION: 1. Relatively normal IGNACIO and PVR examination at rest.
[2018-04-24] MEDS ORDERED: POLYETHYLENE GLYCOL 3350 17 GM/Dose PACKET PO ONE (13:40)
--- NOTE | 2018-04-24 14:35 | PN ---
DATE: 04/24/2018 SUBJECTIVE: The patient is currently off IV Cardizem. He denies any chest pain. PHYSICAL EXAMINATION: VITAL SIGNS: Blood pressure 134/74, heart rate 103, temperature 98.2, and respirations 19. HEENT: Normocephalic. CHEST: Bilateral rhonchi. HEART: S1 and S2 regular. EXTREMITIES: Bilateral leg cellulitis. LABORATORY DATA: Today's hemoglobin and hematocrit 12 and 34.8, white count 15.4, platelet count 446,000. Recent SMA-7: Sodium 136, potassium 3.5, chloride 95, CO2 of 23. Glucose 159. BUN 31, creatinine 1.4. Venous Doppler of lower extremity was performed; however, the report is still pending. The recent the last admission was negative for DVT. ASSESSMENT: 1. Chronic atrial fibrillation. 2. Bilateral leg cellulitis. 3, Rule out deep venous thrombosis. 4. Cor pulmonale and right-sided failure. 5. Diabetes mellitus. RECOMMENDATIONS: Continue Aldactone 25 mg twice a day, Azactam 1 g intravenously every 8 hours, Cardizem CD 240 mg once a day, Lasix 40 mg intravenously twice a day, Lipitor 10 once a day, Lopressor 5 mg intravenously every 6 hours p.r.n., Pradaxa 150 mg twice a day, Zyvox 600 mg intravenously every 12 hours. I would review the echocardiographic study performed today. Kendell Patel MD
--- NOTE | 2018-04-24 15:53 | CARD ---
APPROVED REPORT Date of service: 04/23/2018 EXAM: Two-dimensional and M-mode echocardiogram with Doppler and color Doppler. INDICATION Congestive Heart Failure 2D DIMENSIONS Left Atrium (2D)4.4 (1.6-4.0cm)IVSd1.8 (0.7-1.1cm) LVDd5.6 (3.9-5.9cm)PWd1.8 (0.7-1.1cm) LVDs3.8 (2.5-4.0cm)FS (%) 31.7 % LVEF (%)59.0 (>50%) M-Mode DIMENSIONS Aortic Root3.50 (2.2-3.7cm)Aortic Cusp Exc.2.40 (1.5-2.0cm) Aortic Valve AoV Peak Xvhzdygx979.0cm/Terrance Peak GR.11mmHg Mitral Valve MV E Hgypwepu830.0cm/sE/A ratio0.0 TDI Lateral E' Peak V14.60cm/sMedial E' Peak V12.70cm/sE/Lateral E'7.3 E/Medial E'8.3 Tricuspid Valve TR Peak [id number]/sRAP [id number] Peak Gr.61mmHg [id number] LEFT VENTRICLE The left ventricle is normal size. There is mild concentric left ventricular hypertrophy. The left ventricular function is normal. The left ventricular ejection fraction is within the normal range. There is normal LV segmental wall motion. RIGHT VENTRICLE The right ventricle is normal size. There is normal right ventricular wall thickness. Systolic function is borderline reduced. ATRIA The left atrium is mildly dilated. The right atrium is mildly dilated. AORTIC VALVE The aortic valve is not well visualized. No aortic regurgitation is present. There is no aortic valvular stenosis. MITRAL VALVE The mitral valve is not well visualized. Mitral regurgitation is trace. There is no mitral valve stenosis. TRICUSPID VALVE There is mild tricuspid regurgitation. There is severe pulmonary hypertension. PULMONIC VALVE The pulmonary valve is normal in structure. There is no pulmonic valvular regurgitation. GREAT VESSELS The aortic root is normal in size. The IVC is normal in size and collapses >50% with inspiration. <Conclusion> There is mild concentric left ventricular hypertrophy. The left ventricular function is normal. The left ventricular ejection fraction is within the normal range. There is normal LV segmental wall motion. There is severe pulmonary hypertension.
--- NOTE | 2018-04-24 16:32 | CP.PCM.PN ---
Subjective - Date & Time of Evaluation Date of Evaluation: 04/24/18 Time of Evaluation: 10:25 - Subjective Subjective: Comfortable in bed, anxious about his MRI, feet and legs feel better. No fevers. Objective - Vital Signs/Intake and Output Vital Signs (last 24 hours): Temp Pulse Resp BP Pulse Ox 98.2 F 103 H 19 134/74 97 04/24/18 06:00 04/24/18 09:36 04/24/18 06:00 04/24/18 09:36 04/24/18 06:00 Intake and Output: 04/24/18 04/24/18 06:59 18:59 Intake Total 2170 Output Total 2900 Balance -730 - Medications Medications: Current Medications Albuterol/Ipratropium (Duoneb 3 Mg/0.5 Mg (3 Ml) Ud) 3 ml IH [id number] PRN PRN Reason: Wheezing Last Admin: 04/22/18 18:14 Dose: 3 ml Atorvastatin Calcium (Lipitor) 10 mg PO DIN [facility] Last Admin: 04/23/18 17:40 Dose: 10 mg Dabigatran (Pradaxa) 150 mg PO BID [facility] PRN Reason: Protocol Last Admin: 04/24/18 09:36 Dose: 150 mg Diltiazem HCl (Cardizem Cd) 240 mg PO DAILY [facility] Last Admin: 04/24/18 09:36 Dose: 240 mg Furosemide (Lasix) 40 mg IVP Q12 [facility] Last Admin: 04/24/18 09:35 Dose: 40 mg Aztreonam (Azactam 1 Gm) 100 mls @ 100 mls/hr IVPB Q8 [facility] PRN Reason: Protocol Stop: 04/29/18 22:01 Last Admin: 04/24/18 05:45 Dose: 100 mls/hr Linezolid (Zyvox 600mg/300ml D5w) 600 mg in 300 mls @ 200 mls/hr IVPB Q12 [facility] PRN Reason: Protocol Stop: 04/29/18 22:01 Last Admin: 04/24/18 09:36 Dose: 200 mls/hr diltiaZEM IVPB 100mg in NS (Cardizem 100mg In Ns) 100 mls @ 10 mls/hr IV .Q10H [facility] PRN Reason: 10 MG/HR Last Admin: 04/24/18 09:35 Dose: 10 mls/hr Insulin Detemir (Levemir) 80 unit SC HS [facility] Last Admin: 04/23/18 23:17 Dose: 80 units Insulin Human Lispro (Humalog) 30 units SC AC [facility] Last Admin: 04/24/18 08:18 Dose: 30 u Insulin Human Regular (Humulin R Med) 0 units SC ACHS [facility] PRN Reason: Protocol Last Admin: 04/24/18 08:18 Dose: 1 units Metoprolol Tartrate (Lopressor) 5 mg IVP Q6 PRN PRN Reason: Heart rate Last Admin: 04/22/18 19:13 Dose: 5 mg Oxycodone/Acetaminophen (Percocet 10/325 Mg Tab) 1 tab PO Q4H PRN PRN Reason: Pain, moderate (4-7) Last Admin: 04/24/18 06:16 Dose: 1 tab Pantoprazole Sodium (Protonix Ec Tab) 40 mg PO 0600 [facility] Last Admin: 04/24/18 05:45 Dose: 40 mg - Labs Labs: 04/24/18 09:20 04/23/18 08:30 PT 19.4 SECONDS (9.4-12.5) H 04/22/18 09:00 INR 1.67 04/22/18 09:00 APTT 43.1 Seconds (25.1-36.5) H 04/22/18 09:00 - Constitutional Appears: Non-toxic, Chronically Ill - Head Exam Head Exam: NORMAL INSPECTION - Respiratory Exam Respiratory Exam: Decreased Breath Sounds - Cardiovascular Exam Cardiovascular Exam: +S1, +S2 - GI/Abdominal Exam GI & Abdominal Exam: Soft. absent: Tenderness - Extremities Exam Additional comments: both legs and feet with dressings in place Assessment and Plan - Assessment and Plan (Free Text) Plan: Assessment severe sepsis with acute on chronic renal failure due to bilateral lower extremity cellulitis in this patient with chronic venous stasis and lymphedema and history of lower extremity cellulitis, slowly improving chronic lower extremity edema CAD HTN atrial fibrillation DM JOSELINE morbid obesity with BMI 42 Plan continue Zyvox and Azactam day 3 (Was given Vancomycin and Zosyn in the ED); blood cx are negative; follow up wound cx from the ulcers follow up MRI of the legs and feet will continue to monitor clinically
--- NOTE | 2018-04-24 16:55 | MRI ---
Date of service: 04/24/2018 PROCEDURE: MRI of the right foot without contrast HISTORY: 5th met styloid process ulcer COMPARISON: TECHNIQUE: MRI of the right foot was performed in multiple planes using multiple pulse sequences. FINDINGS: There is no marrow edema to suggest osteomyelitis. There are some degenerative changes in the 1st MTP joint. There is subcutaneous edema over the dorsum of the foot consistent with either cellulitis or passive edema. IMPRESSION: No evidence of osteomyelitis
--- NOTE | 2018-04-24 17:02 | MRI ---
Date of service: 04/24/2018 PROCEDURE: MRI of the left foot without contrast HISTORY: hallux wound COMPARISON: TECHNIQUE: MRI of the left foot was performed in multiple planes using multiple pulse sequences. FINDINGS: There is no marrow edema to suggest osteomyelitis. There is moderate amount of subcutaneous edema over the dorsum of the foot which could represent cellulitis or passive edema. A similar finding was seen on the right side which is more suggestive a passive edema. IMPRESSION: No evidence of osteomyelitis
[2018-04-24] MEDS: Insulin Detemir 100 units/ml Vial (Levemir) SC SCH (22:16)
[2018-04-25] MEDS: Oxycodone/Acetaminophen 10/325 mg Tab PO PRN ×4 (05:24→22:10)
[2018-04-25] MEDS: Pantoprazole 40 mg EC Tab PO SCH (05:25)
[2018-04-25] MEDS: Aztreonam 1 Gm in NS 100mL 100 ML IVPB SCH ×3 (05:25→22:11)
--- NOTE | 2018-04-25 06:03 | CP.PCM.PN ---
<Nitish Madrigal - Last Filed: 04/25/18 18:18> Subjective - Date & Time of Evaluation Date of Evaluation: 04/25/18 Time of Evaluation: 06:00 - Subjective Subjective: Pt seen and examined this morning. Spoke with nurse, she said pt well has been well controlled over her shift. Objective - Vital Signs/Intake and Output Vital Signs (last 24 hours): Temp Pulse Resp BP Pulse Ox 97.8 F 89 20 131/83 93 L 04/25/18 00:01 04/25/18 02:00 04/25/18 00:01 04/25/18 00:01 04/25/18 00:01 Intake and Output: 04/24/18 04/25/18 18:59 06:59 Intake Total 360 Output Total 600 Balance -240 - Medications Medications: Current Medications Albuterol/Ipratropium (Duoneb 3 Mg/0.5 Mg (3 Ml) Ud) 3 ml IH [id number] PRN PRN Reason: Wheezing Last Admin: 04/22/18 18:14 Dose: 3 ml Atorvastatin Calcium (Lipitor) 10 mg PO DIN [facility] Last Admin: 04/24/18 17:49 Dose: 10 mg Dabigatran (Pradaxa) 150 mg PO BID SHAHEED PRN Reason: Protocol Last Admin: 04/24/18 17:49 Dose: 150 mg Diltiazem HCl (Cardizem Cd) 240 mg PO DAILY [facility] Last Admin: 04/24/18 09:36 Dose: 240 mg Furosemide (Lasix) 40 mg IVP Q12 SHAHEED Last Admin: 04/24/18 22:17 Dose: 40 mg Aztreonam (Azactam 1 Gm) 100 mls @ 100 mls/hr IVPB Q8 SHAHEED PRN Reason: Protocol Stop: 04/29/18 22:01 Last Admin: 04/25/18 05:25 Dose: 100 mls/hr Linezolid (Zyvox 600mg/300ml D5w) 600 mg in 300 mls @ 200 mls/hr IVPB Q12 SHAHEED PRN Reason: Protocol Stop: 04/29/18 22:01 Last Admin: 04/24/18 22:19 Dose: 200 mls/hr Insulin Detemir (Levemir) 80 unit SC HS [facility] Last Admin: 04/24/18 22:16 Dose: 80 units Insulin Human Lispro (Humalog) 30 units SC AC [facility] Last Admin: 04/24/18 17:50 Dose: 30 u Insulin Human Regular (Humulin R Med) 0 units SC ACHS [facility] PRN Reason: Protocol Last Admin: 04/24/18 22:21 Dose: Not Given Metoprolol Tartrate (Lopressor) 5 mg IVP Q6 PRN PRN Reason: Heart rate Last Admin: 04/22/18 19:13 Dose: 5 mg Oxycodone/Acetaminophen (Percocet 10/325 Mg Tab) 1 tab PO Q4H PRN PRN Reason: Pain, moderate (4-7) Last Admin: 04/25/18 05:24 Dose: 1 tab Pantoprazole Sodium (Protonix Ec Tab) 40 mg PO 0600 [facility] Last Admin: 04/25/18 05:25 Dose: 40 mg Spironolactone (Aldactone) 25 mg PO BID [facility] Last Admin: 04/24/18 17:49 Dose: 25 mg - Labs Labs: 04/24/18 09:20 04/24/18 09:20 PT 19.4 SECONDS (9.4-12.5) H 04/22/18 09:00 INR 1.67 04/22/18 09:00 APTT 43.1 Seconds (25.1-36.5) H 04/22/18 09:00 - Constitutional Appears: No Acute Distress - Head Exam Head Exam: ATRAUMATIC, NORMOCEPHALIC - Eye Exam Eye Exam: EOMI - ENT Exam ENT Exam: Mucous Membranes Moist - Neck Exam Neck Exam: Full ROM - Respiratory Exam Respiratory Exam: Clear to Ausculation Bilateral, NORMAL BREATHING PATTERN. absent: Accessory Muscle Use, Respiratory Distress, Stridor - Cardiovascular Exam Cardiovascular Exam: REGULAR RHYTHM, RRR, +S1, +S2. absent: JVD - GI/Abdominal Exam GI & Abdominal Exam: Soft, Normal Bowel Sounds - Extremities Exam Additional comments: Pt reports pain, swelling, and leakage of BL LE - Back Exam Back Exam: NORMAL INSPECTION. absent: CVA tenderness (L), CVA tenderness (R) - Neurological Exam Neurological Exam: Alert, Awake, Oriented x3 - Psychiatric Exam Psychiatric exam: Normal Affect, Normal Mood - Skin Additional comments: legs are erthematous BL Assessment and Plan - Assessment and Plan (Free Text) Assessment: Pt is a 58 yo male with a PMH of DM, AFIB with RVR, CAD, HTN, venous stasis ulcers, COPD, and obstructive sleep apnea who has cellulitis on BL LE. Plan: Lower Extremity Cellulitis - [email or web address] following - ID: Aztreonam, Linezolid, Wound cultures all growing GNR - OT consulted Atrial Fibrillation - continue Pradaxa, lopressor - cardio following CHF - continue Lasix 40 IV BID - Aldactone 25mg PO BID, plan to increase tomorrow (9-8) - ECHO: severe pulmonary hypertension DM - lispro 30 units SC AC - levemir 80 units SC HS Pt seen, examined, and assessment/ plan discussed with Dr Tang. Nitish Madrigal PGY1 Internal Medicine Resident <Jalen Tang - Last Filed: 04/27/18 15:19> Objective - Vital Signs/Intake and Output Vital Signs (last 24 hours): Temp Pulse Resp BP Pulse Ox 97.6 F 120 H 20 127/82 96 04/27/18 12:00 04/27/18 12:00 04/27/18 12:00 04/27/18 12:00 04/27/18 06:00 Intake and Output: 04/27/18 04/27/18 06:59 18:59 Intake Total 1740 Output Total 1500 Balance 240 - Medications Medications: Current Medications Albuterol/Ipratropium (Duoneb 3 Mg/0.5 Mg (3 Ml) Ud) 3 ml IH [id number] PRN PRN Reason: Wheezing Last Admin: 04/22/18 18:14 Dose: 3 ml Atorvastatin Calcium (Lipitor) 10 mg PO DIN [facility] Last Admin: 04/26/18 17:56 Dose: 10 mg Dabigatran (Pradaxa) 150 mg PO BID SHAHEED PRN Reason: Protocol Last Admin: 04/27/18 09:47 Dose: 150 mg Diltiazem HCl (Cardizem Cd) 240 mg PO DAILY [facility] Last Admin: 04/27/18 09:47 Dose: 240 mg Furosemide (Lasix) 40 mg PO BID [facility] Last Admin: 04/27/18 09:46 Dose: 40 mg Aztreonam (Azactam 1 Gm) 100 mls @ 100 mls/hr IVPB Q8 SHAHEED PRN Reason: Protocol Stop: 04/29/18 22:01 Last Admin: 04/27/18 14:27 Dose: 100 mls/hr Linezolid (Zyvox 600mg/300ml D5w) 600 mg in 300 mls @ 200 mls/hr IVPB Q12 SHAHEED PRN Reason: Protocol Stop: 04/29/18 22:01 Last Admin: 04/27/18 09:46 Dose: 200 mls/hr Insulin Detemir (Levemir) 80 unit SC HS [facility] Last Admin: 04/26/18 22:24 Dose: 80 units Insulin Human Lispro (Humalog) 30 units SC AC [facility] Last Admin: 04/27/18 13:21 Dose: Not Given Insulin Human Regular (Humulin R Med) 0 units SC ACHS SHAHEED PRN Reason: Protocol Last Admin: 04/27/18 13:19 Dose: Not Given Metoprolol Tartrate (Lopressor) 5 mg IVP Q6 PRN PRN Reason: Heart rate Last Admin: 04/22/18 19:13 Dose: 5 mg Oxycodone/Acetaminophen (Percocet 10/325 Mg Tab) 1 tab PO Q6H PRN PRN Reason: Pain, severe (8-10) Pantoprazole Sodium (Protonix Ec Tab) 40 mg PO 0600 [facility] Last Admin: 04/27/18 06:50 Dose: 40 mg Polyethylene Glycol (Miralax) 17 gm PO DAILY [facility] Last Admin: 04/27/18 10:13 Dose: 17 gm Spironolactone (Aldactone) 50 mg PO BID [facility] Last Admin: 04/27/18 09:46 Dose: 50 mg - Labs Labs: 04/27/18 07:15 04/27/18 07:15 PT 19.4 SECONDS (9.4-12.5) H 04/22/18 09:00 INR 1.67 04/22/18 09:00 APTT 43.1 Seconds (25.1-36.5) H 04/22/18 09:00 Attending/Attestation - Attestation I have personally seen and examined this patient.: Yes I have fully participated in the care of the patient.: Yes I have reviewed all pertinent clinical information, including history, physical exam and plan: Yes Notes (Text): 04/27/18 15:18 Patient was seen and examined with biomedical instrument technician. 58 yrs old male with a PMH of IRDM, chronic atrial fibrillation on anticoagulation with pradaxa), CAD, HTN, venous stasis ulcers, COPD, stage III CKD and obstructive sleep apnea was admitted with sepsis due to bilateral leg cellulitis, acute on chronic diastolic CHF exacerbation, AF with RVR and uncontrolled DM. Sepsis due to bilateral leg celluitis and infected ulcer, on IV antibiotics linezolid and aztronam as per ID, blood cultures are negative for any growth.WBC is coming down.MRI of leg is negative for osteomylitis. Acute on chronic diastolic CHF exacerbation, leg swelling is improving, renal functions are stable. AF with RVR, better controlled on oral lopressor and cardizem. , continue anticoagulation with Paradexa. Management plan was discussed in detail with patient. Education was provided.
[2018-04-25 07:34] LABS: BASO # 0.07 K/mm3 (0.0-2.0); BASO % 0.6 % (0.0-3.0); EOS # 0.5 (0.0-0.7); EOS % 4.6 % (1.5-5.0); GRAN # 9.41 (1.4-6.5); GRAN % 80.3 % (50.0-68.0); HEMOGLOBIN 12.4 g/dL (14.0-18.0); LYMPH % 8.9 % (22.0-35.0); MEAN CELL VOLUME 90.9 fl (80.0-105.0); MEAN CORPUSCULAR HEMOGLOBIN 30.5 pg (25.0-35.0); MEAN CORPUSCULAR HGB CONC 33.5 g/dl (31.0-37.0); MEAN PLATELET VOLUME 8.6 fl (7.0-11.0); MONO # 0.7 (0.1-0.6); MONO % 5.6 % (1.0-6.0); RBC 4.07 10^6/uL (3.5-6.1); RED CELL DISTRIBUTION WIDTH 13.9 % (11.5-14.5); WHITE BLOOD COUNT 11.7 10^3/ul (4.5-11.0)
[2018-04-25 07:52] LABS: ALBUMIN 3.9 g/dL (3.0-4.8); ALT/SGPT 30 U/L (7-56); AST/SGOT 35 U/L (17-59); BLOOD UREA NITROGEN 29 mg/dL (7-21); CALCIUM 9.1 mg/dL (8.4-10.5); GFR NON-AFRICAN AMERICAN 52
[2018-04-25] MEDS: Insulin Lispro 1 UNITS/0.01 ML SC SCH ×3 (08:29→17:30)
[2018-04-25] MEDS: Insulin Reg-MEDIUM-Coverage SC SCH ×3 (08:29→17:30)
[2018-04-25] MEDS: diltiaZEM 240 mg/24 Hours CD Cap PO SCH (09:42)
[2018-04-25] MEDS: Linezolid 600 mg in D5W 300 ml 600 MG/300 ML BAG IVPB SCH ×2 (09:42→22:12)
[2018-04-25] MEDS: POLYETHYLENE GLYCOL 3350 17 GM/Dose PACKET PO SCH (10:37)
--- NOTE | 2018-04-25 11:54 | CP.PCM.PN ---
<Rossana Sung - Last Filed: 04/25/18 11:50> Subjective - Date & Time of Evaluation Date of Evaluation: 04/25/18 Time of Evaluation: 11:50 - Subjective Subjective: Podiatry Consult Note - Drs. Meadows/Vincent 58M seen and evaluated at bedside this AM for lower extremity venous stasis ulcerations + edema. Patient resting with legs in dependent position, dressings saturated b/l. No acute events overnight. Patient inquiring arterial doppler and MRI results. Pain in lower extremities well-controlled. No new pedal complaints. Denies N/V/F/D/C/SOB/CP/MCGUIRE/dizziness. Objective - Vital Signs/Intake and Output Vital Signs (last 24 hours): Temp Pulse Resp BP Pulse Ox 97.7 F 119 H 18 139/89 90 L 04/25/18 06:00 04/25/18 09:42 04/25/18 06:00 04/25/18 09:47 04/25/18 06:00 Intake and Output: 04/25/18 04/25/18 06:59 18:59 Intake Total 990 Output Total 2500 Balance -1510 - Medications Medications: Current Medications Albuterol/Ipratropium (Duoneb 3 Mg/0.5 Mg (3 Ml) Ud) 3 ml IH [id number] PRN PRN Reason: Wheezing Last Admin: 04/22/18 18:14 Dose: 3 ml Atorvastatin Calcium (Lipitor) 10 mg PO DIN [facility] Last Admin: 04/24/18 17:49 Dose: 10 mg Dabigatran (Pradaxa) 150 mg PO BID [facility] PRN Reason: Protocol Last Admin: 04/25/18 09:41 Dose: 150 mg Diltiazem HCl (Cardizem Cd) 240 mg PO DAILY [facility] Last Admin: 04/25/18 09:42 Dose: 240 mg Furosemide (Lasix) 40 mg PO BID [facility] Aztreonam (Azactam 1 Gm) 100 mls @ 100 mls/hr IVPB Q8 SHAHEED PRN Reason: Protocol Stop: 04/29/18 22:01 Last Admin: 04/25/18 05:25 Dose: 100 mls/hr Linezolid (Zyvox 600mg/300ml D5w) 600 mg in 300 mls @ 200 mls/hr IVPB Q12 SHAHEED PRN Reason: Protocol Stop: 04/29/18 22:01 Last Admin: 04/25/18 09:42 Dose: 200 mls/hr Insulin Detemir (Levemir) 80 unit SC HS [facility] Last Admin: 04/24/18 22:16 Dose: 80 units Insulin Human Lispro (Humalog) 30 units SC AC [facility] Last Admin: 04/25/18 08:29 Dose: 30 u Insulin Human Regular (Humulin R Med) 0 units SC ACHS [facility] PRN Reason: Protocol Last Admin: 04/25/18 08:29 Dose: 1 units Metoprolol Tartrate (Lopressor) 5 mg IVP Q6 PRN PRN Reason: Heart rate Last Admin: 04/22/18 19:13 Dose: 5 mg Oxycodone/Acetaminophen (Percocet 10/325 Mg Tab) 1 tab PO Q4H PRN PRN Reason: Pain, moderate (4-7) Last Admin: 04/25/18 10:37 Dose: 1 tab Pantoprazole Sodium (Protonix Ec Tab) 40 mg PO 0600 [facility] Last Admin: 04/25/18 05:25 Dose: 40 mg Polyethylene Glycol (Miralax) 17 gm PO DAILY [facility] Last Admin: 04/25/18 10:37 Dose: 17 gm Spironolactone (Aldactone) 25 mg PO BID [facility] Last Admin: 04/25/18 09:41 Dose: 25 mg - Labs Labs: 04/25/18 07:00 04/25/18 07:00 PT 19.4 SECONDS (9.4-12.5) H 04/22/18 09:00 INR 1.67 04/22/18 09:00 APTT 43.1 Seconds (25.1-36.5) H 04/22/18 09:00 - Constitutional Appears: Well, Non-toxic, No Acute Distress - Extremities Exam Additional comments: VASC: Nonpalpable DP and PT pulses secondary to chronic indurated edema b/l. Temperature gradient warm to warm b/l. +2 pitting edema bilaterally. NEURO: Gross sensation absent b/l. DERM: Ulceration noted to lateral aspect of right foot styloid process extending down to subcutaneous tissue - ulcer noted to have a mixed fibrogranular base and maceration periwound; serosanguinous drainage present; malodor present; no tracking present; no purulence; no fluctuance. Ulceration noted to dorsal aspect of left hallux extending down to subcutaneous tissue - ulcer noted to have a mixed fibrogranular base and maceration periwound; serosanguinous drainage present; malodor present; no fluctuance; no purulence; no undermining; no tracking; no tunneling. Multiple small ulcerations to bilateral legs with malodor. Deep rubor present to bilateral lower extremities from knee joint extending distally into digits. Abrasion noted to left knee with no drainage or purulence present. ORTHO: Diffuse pain on palpation noted to bilateral LE. ROM limited secondary to chronic indurated edema b/l. - Neurological Exam Neurological Exam: Alert, Awake, Oriented x3 - Psychiatric Exam Psychiatric exam: Normal Affect, Normal Mood Assessment and Plan - Assessment and Plan (Free Text) Assessment: 58 year old male with chronic venous stasis ulcerations, severe LE edema, severe sepsis Plan: Patient seen and evaluated alongside attending, Dr. Kaur Afebrile, WBC decreasing 11.7 Bilateral LE MRI reviewed: Negative for OM Bilateral LE arterial duplex reviewed: Unremarkable Final wound cultures pending: - Right foot wound culture: gram negative phyllis, gram positive cocci - Left leg wound culture: gram negative fod, gram negative phyllis #2 - Left foot wound culture: gram negative phyllis Continue local wound care QD - Wounds cleansed with saline and dressed with maxsorb, DSD Continue LE elevation Continue PT Continue abx per ID - Aztreonam & Linezolid day 3 Pain control per primary Podiatry will continue to follow <Andres Kaur - Last Filed: 04/26/18 07:41> Objective - Vital Signs/Intake and Output Vital Signs (last 24 hours): Temp Pulse Resp BP Pulse Ox 97.9 F 85 18 104/68 98 04/26/18 06:00 04/26/18 06:00 04/26/18 06:00 04/26/18 06:00 04/26/18 06:00 Intake and Output: 04/26/18 04/26/18 06:59 18:59 Intake Total 660 Output Total 1700 Balance -1040 - Medications Medications: Current Medications Albuterol/Ipratropium (Duoneb 3 Mg/0.5 Mg (3 Ml) Ud) 3 ml IH [id number] PRN PRN Reason: Wheezing Last Admin: 04/22/18 18:14 Dose: 3 ml Atorvastatin Calcium (Lipitor) 10 mg PO DIN [facility] Last Admin: 04/25/18 17:30 Dose: 10 mg Dabigatran (Pradaxa) 150 mg PO BID [facility] PRN Reason: Protocol Last Admin: 04/25/18 17:28 Dose: 150 mg Diltiazem HCl (Cardizem Cd) 240 mg PO DAILY [facility] Last Admin: 04/25/18 09:42 Dose: 240 mg Furosemide (Lasix) 40 mg PO BID [facility] Last Admin: 04/25/18 17:30 Dose: 40 mg Aztreonam (Azactam 1 Gm) 100 mls @ 100 mls/hr IVPB Q8 SHAHEED PRN Reason: Protocol Stop: 04/29/18 22:01 Last Admin: 04/26/18 05:45 Dose: 100 mls/hr Linezolid (Zyvox 600mg/300ml D5w) 600 mg in 300 mls @ 200 mls/hr IVPB Q12 [facility]HE[facility] PRN Reason: Protocol Stop: 04/29/18 22:01 Last Admin: 04/25/18 22:12 Dose: 200 mls/hr Insulin Detemir (Levemir) 80 unit SC HS [facility] Last Admin: 04/25/18 22:12 Dose: 80 units Insulin Human Lispro (Humalog) 30 units SC AC [facility] Last Admin: 04/25/18 17:30 Dose: Not Given Insulin Human Regular (Humulin R Med) 0 units SC ACHS [facility] PRN Reason: Protocol Last Admin: 04/26/18 04:23 Dose: Not Given Metoprolol Tartrate (Lopressor) 5 mg IVP Q6 PRN PRN Reason: Heart rate Last Admin: 04/22/18 19:13 Dose: 5 mg Oxycodone/Acetaminophen (Percocet 10/325 Mg Tab) 1 tab PO Q4H PRN PRN Reason: Pain, moderate (4-7) Last Admin: 04/25/18 22:10 Dose: 1 tab Pantoprazole Sodium (Protonix Ec Tab) 40 mg PO 0600 [facility] Last Admin: 04/26/18 05:46 Dose: 40 mg Polyethylene Glycol (Miralax) 17 gm PO DAILY [facility] Last Admin: 04/25/18 10:37 Dose: 17 gm Spironolactone (Aldactone) 25 mg PO BID [facility] Last Admin: 04/25/18 17:30 Dose: 25 mg - Labs Labs: 04/25/18 07:00 04/25/18 07:00 PT 19.4 SECONDS (9.4-12.5) H 04/22/18 09:00 INR 1.67 04/22/18 09:00 APTT 43.1 Seconds (25.1-36.5) H 04/22/18 09:00 Attending/Attestation - Attestation I have personally seen and examined this patient.: Yes I have fully participated in the care of the patient.: Yes I have reviewed all pertinent clinical information, including history, physical exam and plan: Yes
--- NOTE | 2018-04-25 13:05 | CP.PCM.PN ---
Subjective - Date & Time of Evaluation Date of Evaluation: 04/25/18 Time of Evaluation: 11:35 - Subjective Subjective: No increase in leg or foot pain, no fevers. Objective - Vital Signs/Intake and Output Vital Signs (last 24 hours): Temp Pulse Resp BP Pulse Ox 97.7 F 119 H 18 139/89 90 L 04/25/18 06:00 04/25/18 09:42 04/25/18 06:00 04/25/18 09:47 04/25/18 06:00 Intake and Output: 04/25/18 04/25/18 06:59 18:59 Intake Total 990 Output Total 2500 Balance -1510 - Medications Medications: Current Medications Albuterol/Ipratropium (Duoneb 3 Mg/0.5 Mg (3 Ml) Ud) 3 ml IH [id number] PRN PRN Reason: Wheezing Last Admin: 04/22/18 18:14 Dose: 3 ml Atorvastatin Calcium (Lipitor) 10 mg PO DIN [facility] Last Admin: 04/24/18 17:49 Dose: 10 mg Dabigatran (Pradaxa) 150 mg PO BID [facility] PRN Reason: Protocol Last Admin: 04/25/18 09:41 Dose: 150 mg Diltiazem HCl (Cardizem Cd) 240 mg PO DAILY [facility] Last Admin: 04/25/18 09:42 Dose: 240 mg Furosemide (Lasix) 40 mg PO BID [facility] Aztreonam (Azactam 1 Gm) 100 mls @ 100 mls/hr IVPB Q8 SHAHEED PRN Reason: Protocol Stop: 04/29/18 22:01 Last Admin: 04/25/18 05:25 Dose: 100 mls/hr Linezolid (Zyvox 600mg/300ml D5w) 600 mg in 300 mls @ 200 mls/hr IVPB Q12 [facility]HEED PRN Reason: Protocol Stop: 04/29/18 22:01 Last Admin: 04/25/18 09:42 Dose: 200 mls/hr Insulin Detemir (Levemir) 80 unit SC HS [facility] Last Admin: 04/24/18 22:16 Dose: 80 units Insulin Human Lispro (Humalog) 30 units SC AC [facility] Last Admin: 04/25/18 08:29 Dose: 30 u Insulin Human Regular (Humulin R Med) 0 units SC ACHS [facility] PRN Reason: Protocol Last Admin: 04/25/18 08:29 Dose: 1 units Metoprolol Tartrate (Lopressor) 5 mg IVP Q6 PRN PRN Reason: Heart rate Last Admin: 04/22/18 19:13 Dose: 5 mg Oxycodone/Acetaminophen (Percocet 10/325 Mg Tab) 1 tab PO Q4H PRN PRN Reason: Pain, moderate (4-7) Last Admin: 04/25/18 05:24 Dose: 1 tab Pantoprazole Sodium (Protonix Ec Tab) 40 mg PO 0600 [facility] Last Admin: 04/25/18 05:25 Dose: 40 mg Polyethylene Glycol (Miralax) 17 gm PO DAILY [facility] Spironolactone (Aldactone) 25 mg PO BID [facility] Last Admin: 04/25/18 09:41 Dose: 25 mg - Labs Labs: 04/25/18 07:00 04/25/18 07:00 PT 19.4 SECONDS (9.4-12.5) H 04/22/18 09:00 INR 1.67 04/22/18 09:00 APTT 43.1 Seconds (25.1-36.5) H 04/22/18 09:00 - Constitutional Appears: Chronically Ill - Head Exam Head Exam: NORMAL INSPECTION - Respiratory Exam Respiratory Exam: Decreased Breath Sounds - Cardiovascular Exam Cardiovascular Exam: +S1, +S2 - GI/Abdominal Exam GI & Abdominal Exam: Soft. absent: Tenderness - Extremities Exam Additional comments: both legs and feet with dressings in place Assessment and Plan - Assessment and Plan (Free Text) Plan: Assessment severe sepsis with acute on chronic renal failure due to bilateral lower extremity cellulitis in this patient with chronic venous stasis and lymphedema and history of lower extremity cellulitis, slowly improving chronic lower extremity edema CAD HTN atrial fibrillation DM JOSELINE morbid obesity with BMI 42 Plan continue Zyvox and Azactam day 4 (Was given Vancomycin and Zosyn in the ED); blood cx are negative; follow up wound cx from the ulcers (showing gram positive cocci and gram negative bacilli) MRI of the legs and feet do not show osteomyelitis will continue to monitor clinically
[2018-04-25] MEDS: Insulin Detemir 100 units/ml Vial (Levemir) SC SCH (22:12)
--- NOTE | 2018-04-26 03:03 | PN ---
DATE: 04/25/2018 SUBJECTIVE: The patient atrial fibrillation. He is off IV Cardizem. PHYSICAL EXAMINATION: VITAL SIGNS: Blood pressure 135/84, heart rate 84, temperature 98.6, and respirations 18. LABORATORY DATA: Bacteriology workup as follows: Right foot wound culture preliminary report is gram-negative rods and gram-positive cocci. For the left foot, gram-negative rods and gram-negative . Urine culture, gram-negative rods. Blood culture is negative after 3 days. Right foot MRI, no evidence of osteomyelitis. Left foot MRI, no evidence of osteomyelitis. ASSESSMENT: 1. Bilateral leg and foot cellulitis. 2. Chronic atrial fibrillation. 3. Uncontrolled diabetes mellitus. RECOMMENDATIONS: Continue current Aldactone 25 mg twice a day, Azactam 1 g every 8 hours, Cardizem CD 240 mg once a day, Lasix 40 mg p.o. twice a day, Lopressor 5 mg intravenously every 6 hours p.r.n., Pradaxa 150 mg twice a day. The patient's echocardiographic study revealed improvement of the right ventricular systolic dysfunction, compared to an earlier study. The patient has normal left ventricular ejection fraction. There was severe pulmonary hypertension. Kendell Patel MD
[2018-04-26] MEDS: Insulin Reg-MEDIUM-Coverage SC SCH ×5 (04:23→22:00)
[2018-04-26] MEDS: Aztreonam 1 Gm in NS 100mL 100 ML IVPB SCH ×3 (05:45→22:23)
[2018-04-26] MEDS: Pantoprazole 40 mg EC Tab PO SCH (05:46)
--- NOTE | 2018-04-26 06:51 | CP.PCM.PN ---
<Nitish Madrigal - Last Filed: 04/26/18 12:18> Subjective - Date & Time of Evaluation Date of Evaluation: 04/26/18 Time of Evaluation: 06:30 - Subjective Subjective: Pt seen and examined this morning. Pt stating that his feet hurt but the pain is being controlled. Objective - Vital Signs/Intake and Output Vital Signs (last 24 hours): Temp Pulse Resp BP Pulse Ox 97.9 F 85 18 104/68 98 04/26/18 06:00 04/26/18 06:00 04/26/18 06:00 04/26/18 06:00 04/26/18 06:00 Intake and Output: 04/25/18 04/26/18 18:59 06:59 Intake Total 1380 660 Output Total 1600 1700 Balance -220 -1040 - Medications Medications: Current Medications Albuterol/Ipratropium (Duoneb 3 Mg/0.5 Mg (3 Ml) Ud) 3 ml IH [id number] PRN PRN Reason: Wheezing Last Admin: 04/22/18 18:14 Dose: 3 ml Atorvastatin Calcium (Lipitor) 10 mg PO DIN [facility] Last Admin: 04/25/18 17:30 Dose: 10 mg Dabigatran (Pradaxa) 150 mg PO BID [facility] PRN Reason: Protocol Last Admin: 04/25/18 17:28 Dose: 150 mg Diltiazem HCl (Cardizem Cd) 240 mg PO DAILY [facility] Last Admin: 04/25/18 09:42 Dose: 240 mg Furosemide (Lasix) 40 mg PO BID [facility] Last Admin: 04/25/18 17:30 Dose: 40 mg Aztreonam (Azactam 1 Gm) 100 mls @ 100 mls/hr IVPB Q8 [facility]ED PRN Reason: Protocol Stop: 04/29/18 22:01 Last Admin: 04/26/18 05:45 Dose: 100 mls/hr Linezolid (Zyvox 600mg/300ml D5w) 600 mg in 300 mls @ 200 mls/hr IVPB Q12 [facility]ED PRN Reason: Protocol Stop: 04/29/18 22:01 Last Admin: 04/25/18 22:12 Dose: 200 mls/hr Insulin Detemir (Levemir) 80 unit SC HS [facility] Last Admin: 04/25/18 22:12 Dose: 80 units Insulin Human Lispro (Humalog) 30 units SC AC [facility] Last Admin: 04/25/18 17:30 Dose: Not Given Insulin Human Regular (Humulin R Med) 0 units SC ACHS [facility] PRN Reason: Protocol Last Admin: 04/26/18 04:23 Dose: Not Given Metoprolol Tartrate (Lopressor) 5 mg IVP Q6 PRN PRN Reason: Heart rate Last Admin: 04/22/18 19:13 Dose: 5 mg Oxycodone/Acetaminophen (Percocet 10/325 Mg Tab) 1 tab PO Q4H PRN PRN Reason: Pain, moderate (4-7) Last Admin: 04/25/18 22:10 Dose: 1 tab Pantoprazole Sodium (Protonix Ec Tab) 40 mg PO 0600 [facility] Last Admin: 04/26/18 05:46 Dose: 40 mg Polyethylene Glycol (Miralax) 17 gm PO DAILY [facility] Last Admin: 04/25/18 10:37 Dose: 17 gm Spironolactone (Aldactone) 25 mg PO BID [facility] Last Admin: 04/25/18 17:30 Dose: 25 mg - Labs Labs: 04/25/18 07:00 04/25/18 07:00 PT 19.4 SECONDS (9.4-12.5) H 04/22/18 09:00 INR 1.67 04/22/18 09:00 APTT 43.1 Seconds (25.1-36.5) H 04/22/18 09:00 - Constitutional Appears: No Acute Distress - Head Exam Head Exam: ATRAUMATIC, NORMOCEPHALIC - ENT Exam ENT Exam: Mucous Membranes Moist - Respiratory Exam Respiratory Exam: Clear to Ausculation Bilateral, NORMAL BREATHING PATTERN - Cardiovascular Exam Cardiovascular Exam: RRR, +S1, +S2 - GI/Abdominal Exam GI & Abdominal Exam: Soft, Normal Bowel Sounds. absent: Tenderness - Extremities Exam Extremities Exam: Pedal Edema, Tenderness - Neurological Exam Neurological Exam: Alert, Awake, Oriented x3 - Psychiatric Exam Psychiatric exam: Normal Affect, Normal Mood Assessment and Plan - Assessment and Plan (Free Text) Assessment: Pt is a 58 yo with a PMH of DM, Atrial fibrillation/ RVR, CAD, HTN, venous stasis ulcers, JOSELINE, COPD who is being treated for cellulitis on bilateral lower extremity. Plan: BL LE Cellulits - ID following - podiatry following - wound cultures: MRSA, acinetobacter, Klebsiella oxytoca, and Stenotrophomonas maltophilia - continue aztreonam - continue linezolid Atrial Fib - cardiology following - continue pradaxa BID, and lopressor PRN CHF - discussed importance of low salt diet with pt - ECHO: shows severe pulm HTN, 71mm - aldactone increased from 25mg BID, to 50mg BID Hypokalemia - 3.4 - start PO 40meq K - continue to monitor DM - continue levemir 80 units HS - continue lispro 30 AC Pt seen, examined, and assessment/plan discussed with Dr Tang. Nitish Madrigal PGY1 Internal Medicine Resident <Jalen Tang - Last Filed: 04/27/18 15:22> Objective - Vital Signs/Intake and Output Vital Signs (last 24 hours): Temp Pulse Resp BP Pulse Ox 97.6 F 120 H 20 127/82 96 04/27/18 12:00 04/27/18 12:00 04/27/18 12:00 04/27/18 12:00 04/27/18 06:00 Intake and Output: 04/27/18 04/27/18 06:59 18:59 Intake Total 1740 Output Total 1500 Balance 240 - Medications Medications: Current Medications Albuterol/Ipratropium (Duoneb 3 Mg/0.5 Mg (3 Ml) Ud) 3 ml IH [id number] PRN PRN Reason: Wheezing Last Admin: 04/22/18 18:14 Dose: 3 ml Atorvastatin Calcium (Lipitor) 10 mg PO DIN [facility] Last Admin: 04/26/18 17:56 Dose: 10 mg Dabigatran (Pradaxa) 150 mg PO BID [facility] PRN Reason: Protocol Last Admin: 04/27/18 09:47 Dose: 150 mg Diltiazem HCl (Cardizem Cd) 240 mg PO DAILY [facility] Last Admin: 04/27/18 09:47 Dose: 240 mg Furosemide (Lasix) 40 mg PO BID [facility] Last Admin: 04/27/18 09:46 Dose: 40 mg Aztreonam (Azactam 1 Gm) 100 mls @ 100 mls/hr IVPB Q8 [facility] PRN Reason: Protocol Stop: 04/29/18 22:01 Last Admin: 04/27/18 14:27 Dose: 100 mls/hr Linezolid (Zyvox 600mg/300ml D5w) 600 mg in 300 mls @ 200 mls/hr IVPB Q12 [facility] PRN Reason: Protocol Stop: 04/29/18 22:01 Last Admin: 04/27/18 09:46 Dose: 200 mls/hr Insulin Detemir (Levemir) 80 unit SC HS [facility] Last Admin: 04/26/18 22:24 Dose: 80 units Insulin Human Lispro (Humalog) 30 units SC AC [facility] Last Admin: 04/27/18 13:21 Dose: Not Given Insulin Human Regular (Humulin R Med) 0 units SC ACHS [facility] PRN Reason: Protocol Last Admin: 04/27/18 13:19 Dose: Not Given Metoprolol Tartrate (Lopressor) 5 mg IVP Q6 PRN PRN Reason: Heart rate Last Admin: 04/22/18 19:13 Dose: 5 mg Oxycodone/Acetaminophen (Percocet 10/325 Mg Tab) 1 tab PO Q6H PRN PRN Reason: Pain, severe (8-10) Pantoprazole Sodium (Protonix Ec Tab) 40 mg PO 0600 [facility] Last Admin: 04/27/18 06:50 Dose: 40 mg Polyethylene Glycol (Miralax) 17 gm PO DAILY [facility] Last Admin: 04/27/18 10:13 Dose: 17 gm Spironolactone (Aldactone) 50 mg PO BID [facility] Last Admin: 04/27/18 09:46 Dose: 50 mg - Labs Labs: 04/27/18 07:15 04/27/18 07:15 PT 19.4 SECONDS (9.4-12.5) H 04/22/18 09:00 INR 1.67 04/22/18 09:00 APTT 43.1 Seconds (25.1-36.5) H 04/22/18 09:00 Attending/Attestation - Attestation I have personally seen and examined this patient.: Yes I have fully participated in the care of the patient.: Yes I have reviewed all pertinent clinical information, including history, physical exam and plan: Yes Notes (Text): 04/27/18 15:20 Medical record note made by the resident after discussion with my direction and input after the patient was personally seen and examined by me. I have reviewed the chart and agree that the record accurately reflects by personal performance of the history, physical exam, data review, and medical decision-making, in the course for the patient. I have also personally directed the plan of care 58 yrs old male with a PMH of IRDM, chronic atrial fibrillation on anticoagulation with pradaxa), CAD, HTN, venous stasis ulcers, COPD, stage III CKD and obstructive sleep apnea was admitted with sepsis due to bilateral leg cellulitis, acute on chronic diastolic CHF exacerbation, AF with RVR and uncontrolled DM. Sepsis due to bilateral cellulitis and infected ulcer, on IV antibiotics linezolid and aztronam as per ID, blood cultures are negative for any growth.WBC is coming down.MRI of leg is negative for osteomylitis.Wound cultures are growing MRSA, K Oxytocia and Acinobater. Acute on chronic diastolic CHF exacerbation, leg swelling is improving, AF with RVR, better controlled on oral lopressor and cardizem. , continue anticoagulation with Paradexa. Management plan was discussed in detail with patient. Education was provided.
[2018-04-26 08:23] LABS: BASO # 0.09 K/mm3 (0.0-2.0); BASO % 0.8 % (0.0-3.0); EOS # 0.5 (0.0-0.7); EOS % 4.6 % (1.5-5.0); GRAN # 8.05 (1.4-6.5); GRAN % 73.6 % (50.0-68.0); HEMOGLOBIN 11.6 g/dL (14.0-18.0); LYMPH # 1.7 (1.2-3.4); LYMPH % 15.6 % (22.0-35.0); MEAN PLATELET VOLUME 8.9 fl (7.0-11.0); MONO # 0.6 (0.1-0.6); MONO % 5.4 % (1.0-6.0); RBC 3.87 10^6/uL (3.5-6.1); RED CELL DISTRIBUTION WIDTH 13.8 % (11.5-14.5); WHITE BLOOD COUNT 10.9 10^3/ul (4.5-11.0)
[2018-04-26] MEDS ORDERED: Potassium Chloride 20 mEq ER Tab PO STA (08:23)
[2018-04-26 08:32] LABS: ALBUMIN 3.9 g/dL (3.0-4.8); ALT/SGPT 31 U/L (7-56); AST/SGOT 39 U/L (17-59); BLOOD UREA NITROGEN 35 mg/dL (7-21); CALCIUM 9.2 mg/dL (8.4-10.5); GFR NON-AFRICAN AMERICAN 52
[2018-04-26] MEDS: Insulin Lispro 1 UNITS/0.01 ML SC SCH ×3 (08:52→17:53)
[2018-04-26] MEDS: diltiaZEM 240 mg/24 Hours CD Cap PO SCH (10:06)
[2018-04-26] MEDS: POLYETHYLENE GLYCOL 3350 17 GM/Dose PACKET PO SCH (10:06)
[2018-04-26] MEDS: Linezolid 600 mg in D5W 300 ml 600 MG/300 ML BAG IVPB SCH ×2 (10:07→22:22)
[2018-04-26] MEDS: Oxycodone/Acetaminophen 10/325 mg Tab PO PRN ×2 (14:09→22:25)
--- NOTE | 2018-04-26 14:21 | CP.PCM.PN ---
Subjective - Date & Time of Evaluation Date of Evaluation: 04/26/18 Time of Evaluation: 12:15 - Subjective Subjective: Legs and feet pain are slowly improving, no fevers, not in distress. No nausea, no diarrhea. Objective - Vital Signs/Intake and Output Vital Signs (last 24 hours): Temp Pulse Resp BP Pulse Ox 98.6 F 84 20 135/84 90 L 04/25/18 12:00 04/25/18 12:00 04/25/18 12:00 04/25/18 12:00 04/25/18 06:00 Intake and Output: 04/25/18 04/25/18 06:59 18:59 Intake Total 990 Output Total 2500 Balance -1510 - Medications Medications: Current Medications Albuterol/Ipratropium (Duoneb 3 Mg/0.5 Mg (3 Ml) Ud) 3 ml [id number] PRN PRN Reason: Wheezing Last Admin: 04/22/18 18:14 Dose: 3 ml Atorvastatin Calcium (Lipitor) 10 mg PO DIN [facility] Last Admin: 04/24/18 17:49 Dose: 10 mg Dabigatran (Pradaxa) 150 mg PO BID [facility] PRN Reason: Protocol Last Admin: 04/25/18 09:41 Dose: 150 mg Diltiazem HCl (Cardizem Cd) 240 mg PO DAILY [facility] Last Admin: 04/25/18 09:42 Dose: 240 mg Furosemide (Lasix) 40 mg PO BID [facility] Aztreonam (Azactam 1 Gm) 100 mls @ 100 mls/hr IVPB Q8 [facility]HEED PRN Reason: Protocol Stop: 04/29/18 22:01 Last Admin: 04/25/18 05:25 Dose: 100 mls/hr Linezolid (Zyvox 600mg/300ml D5w) 600 mg in 300 mls @ 200 mls/hr IVPB Q12 [facility]HE[facility] PRN Reason: Protocol Stop: 04/29/18 22:01 Last Admin: 04/25/18 09:42 Dose: 200 mls/hr Insulin Detemir (Levemir) 80 unit SC HS [facility] Last Admin: 04/24/18 22:16 Dose: 80 units Insulin Human Lispro (Humalog) 30 units SC AC [facility] Last Admin: 04/25/18 12:35 Dose: 30 u Insulin Human Regular (Humulin R Med) 0 units SC ACHS [facility] PRN Reason: Protocol Last Admin: 04/25/18 12:35 Dose: 1 units Metoprolol Tartrate (Lopressor) 5 mg IVP Q6 PRN PRN Reason: Heart rate Last Admin: 04/22/18 19:13 Dose: 5 mg Oxycodone/Acetaminophen (Percocet 10/325 Mg Tab) 1 tab PO Q4H PRN PRN Reason: Pain, moderate (4-7) Last Admin: 04/25/18 10:37 Dose: 1 tab Pantoprazole Sodium (Protonix Ec Tab) 40 mg PO 0600 [facility] Last Admin: 04/25/18 05:25 Dose: 40 mg Polyethylene Glycol (Miralax) 17 gm PO DAILY [facility] Last Admin: 04/25/18 10:37 Dose: 17 gm Spironolactone (Aldactone) 25 mg PO BID [facility] Last Admin: 04/25/18 09:41 Dose: 25 mg - Labs Labs: 04/25/18 07:00 04/25/18 07:00 PT 19.4 SECONDS (9.4-12.5) H 04/22/18 09:00 INR 1.67 04/22/18 09:00 APTT 43.1 Seconds (25.1-36.5) H 04/22/18 09:00 - Constitutional Appears: No Acute Distress, Chronically Ill - Head Exam Head Exam: NORMAL INSPECTION - Respiratory Exam Respiratory Exam: Decreased Breath Sounds - Cardiovascular Exam Cardiovascular Exam: +S1, +S2 - GI/Abdominal Exam GI & Abdominal Exam: Soft. absent: Tenderness - Extremities Exam Additional comments: both legs and feet with dressings in place Assessment and Plan - Assessment and Plan (Free Text) Plan: Assessment severe sepsis with acute on chronic renal failure due to bilateral lower extremity cellulitis in this patient with chronic venous stasis and lymphedema and history of lower extremity cellulitis, slowly improving - growing Acinetobacter, MRSA and Stenotrophomonas chronic lower extremity edema CAD HTN atrial fibrillation DM JOSELINE morbid obesity with BMI 42 Plan continue Zyvox and Azactam day 5 (Was given Vancomycin and Zosyn in the ED); blood cx are negative; follow up final wound cx results MRI of the legs and feet do not show osteomyelitis will continue to monitor clinically
--- NOTE | 2018-04-26 17:03 | PN ---
DATE: 04/26/2018 SUBJECTIVE: A 58-year-old male seen at bedside for continued evaluation and management of bilateral lower extremity venous stasis ulcerations with severe edema. Once again, the patient has his legs in a dependent position without elevation and his dressing is present, soaking wet. States that his pain has decreased. Vital signs reveal a temperature of 97.9, pulse rate of 104, blood pressure of 110/68, respiratory rate of 18. DATA: Laboratory findings reveal a white count of 10.9, hemoglobin of 11.6, hematocrit of 35.2, platelet count of 449. Microbiology report reveals Klebsiella oxytocin growth as well as growth on the left lower leg and MRSA on the right foot with Acinetobacter growth as well. There is no evidence of osteomyelitis on either foot via MRI testing. HOME MEDICATIONS: Noted in MAR. OBJECTIVE: Nonpalpable pedal pulses bilaterally secondary to indurated +3 edema bilaterally. The patient is unable to detect 5.07 g monofilament wire testing bilaterally. There is noted to be a full-thickness ulceration located on the lateral aspect of the right foot at the styloid process. Base of the ulceration is a mixed fibroglandular base and there is noted to be maceration along the periphery of the wound. There is serosanguineous drainage present. There is no purulence. There is no tracking. There is no underlying abscess formation. However, there is malodor present. There was noted to be an ulceration on the dorsal aspect of the left hallux and the base of the ulceration is a mixed fibroglandular tissue base with serosanguineous drainage present. There is noted to be malodor. However, there is no purulence to suggest underlying abscess formation. None of the ulcers probe to tendon or bone. There are noted to be multiple superficial ulcerations on the anterior lateral and medial as well as posterior aspect of both lower legs secondary to his venous disease and severe lower extremity edema. The ulcerations are all granular with heavy clear serous fluid. ASSESSMENT: A 58-year-old man with chronic venous stasis ulcerations of both lower extremity as well as full-thickness foot ulcerations. PLAN: The patient was seen and evaluated. MRI and arterial duplex results also were reviewed. The most recent wound cultures were reviewed. Infectious Disease note read and appreciated. Both legs were cleansed with normal sterile saline. We will continue to apply Maxsorb and dry sterile dressing to all wounds. He was told that he must elevate his legs when resting or if his wound will drain large amounts of fluid. We will continue with antibiotics as per Infectious Disease. We will continue with PT as the patient tolerates. The patient will be seen and followed daily. Andres Kaur DPM
[2018-04-26] MEDS: Insulin Detemir 100 units/ml Vial (Levemir) SC SCH (22:24)
--- NOTE | 2018-04-27 06:09 | CP.PCM.PN ---
<Nitish Madrigal - Last Filed: 04/27/18 16:45> Subjective - Date & Time of Evaluation Date of Evaluation: 04/27/18 Time of Evaluation: 06:05 - Subjective Subjective: Pt seen and examined this morning. Pt states he did not sleep well last night. Pt reports pain in his feet. Pt feels his feet are improving. Objective - Vital Signs/Intake and Output Vital Signs (last 24 hours): Temp Pulse Resp BP Pulse Ox 97.8 F 112 H 18 105/59 L 99 04/27/18 00:01 04/27/18 02:00 04/27/18 00:01 04/27/18 00:01 04/27/18 00:01 Intake and Output: 04/26/18 04/27/18 18:59 06:59 Intake Total 1140 Output Total 800 Balance 340 - Medications Medications: Current Medications Albuterol/Ipratropium (Duoneb 3 Mg/0.5 Mg (3 Ml) Ud) 3 ml IH [id number] PRN PRN Reason: Wheezing Last Admin: 04/22/18 18:14 Dose: 3 ml Atorvastatin Calcium (Lipitor) 10 mg PO DIN [facility] Last Admin: 04/26/18 17:56 Dose: 10 mg Dabigatran (Pradaxa) 150 mg PO BID [facility] PRN Reason: Protocol Last Admin: 04/26/18 17:53 Dose: 150 mg Diltiazem HCl (Cardizem Cd) 240 mg PO DAILY [facility] Last Admin: 04/26/18 10:06 Dose: 240 mg Furosemide (Lasix) 40 mg PO BID [facility] Last Admin: 04/26/18 17:53 Dose: 40 mg Aztreonam (Azactam 1 Gm) 100 mls @ 100 mls/hr IVPB Q8 [facility] PRN Reason: Protocol Stop: 04/29/18 22:01 Last Admin: 04/26/18 22:23 Dose: 100 mls/hr Linezolid (Zyvox 600mg/300ml D5w) 600 mg in 300 mls @ 200 mls/hr IVPB Q12 [facility] PRN Reason: Protocol Stop: 04/29/18 22:01 Last Admin: 04/26/18 22:22 Dose: 200 mls/hr Insulin Detemir (Levemir) 80 unit SC HS [facility] Last Admin: 04/26/18 22:24 Dose: 80 units Insulin Human Lispro (Humalog) 30 units SC AC [facility] Last Admin: 04/26/18 17:53 Dose: 30 u Insulin Human Regular (Humulin R Med) 0 units SC ACHS [facility] PRN Reason: Protocol Last Admin: 04/26/18 22:00 Dose: Not Given Metoprolol Tartrate (Lopressor) 5 mg IVP Q6 PRN PRN Reason: Heart rate Last Admin: 04/22/18 19:13 Dose: 5 mg Oxycodone/Acetaminophen (Percocet 10/325 Mg Tab) 1 tab PO Q4H PRN PRN Reason: Pain, moderate (4-7) Last Admin: 04/26/18 22:25 Dose: 1 tab Pantoprazole Sodium (Protonix Ec Tab) 40 mg PO 0600 [facility] Last Admin: 04/26/18 05:46 Dose: 40 mg Polyethylene Glycol (Miralax) 17 gm PO DAILY [facility] Last Admin: 04/26/18 10:06 Dose: 17 gm Spironolactone (Aldactone) 50 mg PO BID [facility] Last Admin: 04/26/18 17:52 Dose: 50 mg - Labs Labs: 04/26/18 06:45 04/26/18 06:45 PT 19.4 SECONDS (9.4-12.5) H 04/22/18 09:00 INR 1.67 04/22/18 09:00 APTT 43.1 Seconds (25.1-36.5) H 04/22/18 09:00 - Constitutional Appears: No Acute Distress - Head Exam Head Exam: ATRAUMATIC, NORMOCEPHALIC - Eye Exam Eye Exam: EOMI - ENT Exam ENT Exam: Mucous Membranes Moist - Respiratory Exam Respiratory Exam: Clear to Ausculation Bilateral. absent: Wheezes, Stridor - Cardiovascular Exam Cardiovascular Exam: +S1, +S2. absent: Diastolic murmur - GI/Abdominal Exam GI & Abdominal Exam: Soft, Normal Bowel Sounds. absent: Tenderness - Extremities Exam Extremities Exam: Pedal Edema, Tenderness - Neurological Exam Neurological Exam: Alert, Awake, Oriented x3 - Skin Skin Exam: Erythema Additional comments: improving BL LE Assessment and Plan - Assessment and Plan (Free Text) Assessment: Pt is a 58 yo with a PMH of DM, Atrial fibrillation with RVR, CAD, HTN, venous stasis ulcers, JOSELINE, COPD who is being treated for BL LE cellulitis. Plan: BL LE Cellulits - ID: continue zyvox and azactam day 5 - podiatry: continue local wound care, LE elevation, cleaned and dressed with maxsorb, DSD - wound cultures: MRSA, acinetobacter, Klebsiella oxytoca, and Stenotrophomonas maltophilia - ordered fall precautions, moderate CHF - ECHO: shows severe pulm HTN, 71mm - aldactone: hold, Cr 2.0 - ordered weights on pt Hypokalemia - 4.4 currently - continue to monitor Atrial Fib - continue pradaxa BID - lopressor PRN - telemetry DM - continue levemir 80 units HS - continue lispro 30 AC Pt seen, examined, assessment, plan discussed with Dr Tang. Nitish Madrigal PGY1 <Jalen Tang - Last Filed: 04/27/18 17:55> Objective - Vital Signs/Intake and Output Vital Signs (last 24 hours): Temp Pulse Resp BP Pulse Ox 97.6 F 113 H 20 142/76 96 04/27/18 12:00 04/27/18 14:00 04/27/18 12:00 04/27/18 17:05 04/27/18 06:00 Intake and Output: 04/27/18 04/27/18 06:59 18:59 Intake Total 1740 Output Total 1500 Balance 240 - Medications Medications: Current Medications Albuterol/Ipratropium (Duoneb 3 Mg/0.5 Mg (3 Ml) Ud) 3 ml IH [id number] PRN PRN Reason: Wheezing Last Admin: 04/22/18 18:14 Dose: 3 ml Atorvastatin Calcium (Lipitor) 10 mg PO DIN [facility] Last Admin: 04/27/18 17:05 Dose: 10 mg Dabigatran (Pradaxa) 150 mg PO BID [facility] PRN Reason: Protocol Last Admin: 04/27/18 17:04 Dose: 150 mg Diltiazem HCl (Cardizem Cd) 240 mg PO DAILY [facility] Last Admin: 04/27/18 09:47 Dose: 240 mg Furosemide (Lasix) 40 mg PO BID [facility] Last Admin: 04/27/18 17:05 Dose: 40 mg Aztreonam (Azactam 1 Gm) 100 mls @ 100 mls/hr IVPB Q8 [facility] PRN Reason: Protocol Stop: 04/29/18 22:01 Last Admin: 04/27/18 14:27 Dose: 100 mls/hr Linezolid (Zyvox 600mg/300ml D5w) 600 mg in 300 mls @ 200 mls/hr IVPB Q12 [facility] PRN Reason: Protocol Stop: 04/29/18 22:01 Last Admin: 04/27/18 09:46 Dose: 200 mls/hr Insulin Detemir (Levemir) 80 unit SC HS [facility] Last Admin: 04/26/18 22:24 Dose: 80 units Insulin Human Lispro (Humalog) 30 units SC AC [facility] Last Admin: 04/27/18 16:37 Dose: Not Given Insulin Human Regular (Humulin R Med) 0 units SC ACHS [facility] PRN Reason: Protocol Last Admin: 04/27/18 16:37 Dose: Not Given Metoprolol Tartrate (Lopressor) 5 mg IVP Q6 PRN PRN Reason: Heart rate Last Admin: 04/22/18 19:13 Dose: 5 mg Oxycodone/Acetaminophen (Percocet 10/325 Mg Tab) 1 tab PO Q6H PRN PRN Reason: Pain, severe (8-10) Last Admin: 04/27/18 17:05 Dose: 1 tab Pantoprazole Sodium (Protonix Ec Tab) 40 mg PO 0600 [facility] Last Admin: 04/27/18 06:50 Dose: 40 mg Polyethylene Glycol (Miralax) 17 gm PO DAILY [facility] Last Admin: 04/27/18 10:13 Dose: 17 gm Spironolactone (Aldactone) 50 mg PO BID [facility] Last Admin: 04/27/18 09:46 Dose: 50 mg - Labs Labs: 04/27/18 17:33 04/27/18 07:15 PT 19.4 SECONDS (9.4-12.5) H 04/22/18 09:00 INR 1.67 04/22/18 09:00 APTT 43.1 Seconds (25.1-36.5) H 04/22/18 09:00 Attending/Attestation - Attestation I have personally seen and examined this patient.: Yes I have fully participated in the care of the patient.: Yes I have reviewed all pertinent clinical information, including history, physical exam and plan: Yes Notes (Text): 04/27/18 17:54 Medical record note made by the resident after discussion with my direction and input after the patient was personally seen and examined by me. I have reviewed the chart and agree that the record accurately reflects by personal performance of the history, physical exam, data review, and medical decision-making, in the course for the patient. I have also personally directed the plan of care 58 yrs old male with a PMH of IRDM, chronic atrial fibrillation on anticoagulation with pradaxa), CAD, HTN, venous stasis ulcers, COPD, stage III CKD and obstructive sleep apnea was admitted with sepsis due to bilateral leg cellulitis, acute on chronic diastolic CHF exacerbation, AF with RVR and uncontrolled DM. Sepsis due to bilateral cellulitis and infected ulcer, on IV antibiotics linezolid and aztronam as per ID, blood cultures are negative for any growth.WBC is coming down.MRI of leg is negative for osteomylitis.Wound cultures are growing MRSA, K Oxytocia Acinetobacter, and Stenotrophomonas. Acute on chronic diastolic CHF exacerbation, leg swelling is improving, Creatinin has increased from 1.6 to 2.0.We will hold aldactone and will monitor. AF with RVR, better controlled on oral lopressor and cardizem. , on oral anticoagulation with Paradexa. Management plan was discussed in detail with patient. Education was provided.
[2018-04-27] MEDS: Aztreonam 1 Gm in NS 100mL 100 ML IVPB SCH ×3 (06:50→21:57)
[2018-04-27] MEDS: Oxycodone/Acetaminophen 10/325 mg Tab PO PRN ×2 (06:50→17:05)
[2018-04-27] MEDS: Pantoprazole 40 mg EC Tab PO SCH (06:50)
[2018-04-27 08:02] LABS: BASO # 0.12 K/mm3 (0.0-2.0); BASO % 0.9 % (0.0-3.0); EOS # 0.6 (0.0-0.7); EOS % 4.2 % (1.5-5.0); GRAN # 10.51 (1.4-6.5); GRAN % 78.5 % (50.0-68.0); HEMOGLOBIN 12.3 g/dL (14.0-18.0); LYMPH # 1.6 (1.2-3.4); LYMPH % 11.8 % (22.0-35.0); MEAN CELL VOLUME 90.1 fl (80.0-105.0); MEAN CORPUSCULAR HEMOGLOBIN 30.5 pg (25.0-35.0); MEAN CORPUSCULAR HGB CONC 33.9 g/dl (31.0-37.0); MEAN PLATELET VOLUME 8.6 fl (7.0-11.0); MONO # 0.6 (0.1-0.6); MONO % 4.6 % (1.0-6.0); RBC 4.03 10^6/uL (3.5-6.1); RED CELL DISTRIBUTION WIDTH 13.6 % (11.5-14.5); WHITE BLOOD COUNT 13.4 10^3/ul (4.5-11.0)
[2018-04-27] MEDS: Insulin Lispro 1 UNITS/0.01 ML SC SCH ×3 (08:25→16:37)
[2018-04-27] MEDS: Insulin Reg-MEDIUM-Coverage SC SCH ×4 (08:26→23:21)
[2018-04-27 08:28] LABS: ALBUMIN 4.2 g/dL (3.0-4.8); CALCIUM 9.7 mg/dL (8.4-10.5)
[2018-04-27] MEDS: Linezolid 600 mg in D5W 300 ml 600 MG/300 ML BAG IVPB SCH ×2 (09:46→21:57)
[2018-04-27] MEDS: diltiaZEM 240 mg/24 Hours CD Cap PO SCH (09:47)
[2018-04-27] MEDS: POLYETHYLENE GLYCOL 3350 17 GM/Dose PACKET PO SCH (10:13)
--- NOTE | 2018-04-27 13:48 | CP.PCM.PN ---
Subjective - Date & Time of Evaluation Date of Evaluation: 04/27/18 Time of Evaluation: 13:48 - Subjective Subjective: Podiatry Consult Note - Drs. Meadows/Vincent 58 y/o male seen and evaluated at bedside today for lower extremity venous stasis ulcerations + edema. Patient is seated upright in bed with legs in dependent position. Leg dressings noted to be saturated B/L. Pt denies any overnight events but says he slept poorly and his legs are uncomfortable. Has no new pedal complaints. Denies N/V/F/D/C/SOB/CP/MCGUIRE/dizziness. Objective - Vital Signs/Intake and Output Vital Signs (last 24 hours): Temp Pulse Resp BP Pulse Ox 97.6 F 120 H 20 127/82 96 04/27/18 12:00 04/27/18 12:00 04/27/18 12:00 04/27/18 12:00 04/27/18 06:00 Intake and Output: 04/27/18 04/27/18 06:59 18:59 Intake Total 1740 Output Total 1500 Balance 240 - Medications Medications: Current Medications Albuterol/Ipratropium (Duoneb 3 Mg/0.5 Mg (3 Ml) Ud) 3 ml IH [id number] PRN PRN Reason: Wheezing Last Admin: 04/22/18 18:14 Dose: 3 ml Atorvastatin Calcium (Lipitor) 10 mg PO DIN [facility] Last Admin: 04/26/18 17:56 Dose: 10 mg Dabigatran (Pradaxa) 150 mg PO BID [facility] PRN Reason: Protocol Last Admin: 04/27/18 09:47 Dose: 150 mg Diltiazem HCl (Cardizem Cd) 240 mg PO DAILY [facility] Last Admin: 04/27/18 09:47 Dose: 240 mg Furosemide (Lasix) 40 mg PO BID [facility] Last Admin: 04/27/18 09:46 Dose: 40 mg Aztreonam (Azactam 1 Gm) 100 mls @ 100 mls/hr IVPB Q8 [facility]ED PRN Reason: Protocol Stop: 04/29/18 22:01 Last Admin: 04/27/18 06:50 Dose: 100 mls/hr Linezolid (Zyvox 600mg/300ml D5w) 600 mg in 300 mls @ 200 mls/hr IVPB Q12 [facility] PRN Reason: Protocol Stop: 04/29/18 22:01 Last Admin: 04/27/18 09:46 Dose: 200 mls/hr Insulin Detemir (Levemir) 80 unit SC HS [facility] Last Admin: 04/26/18 22:24 Dose: 80 units Insulin Human Lispro (Humalog) 30 units SC AC [facility] Last Admin: 04/27/18 13:21 Dose: Not Given Insulin Human Regular (Humulin R Med) 0 units SC ACHS [facility] PRN Reason: Protocol Last Admin: 04/27/18 13:19 Dose: Not Given Metoprolol Tartrate (Lopressor) 5 mg IVP Q6 PRN PRN Reason: Heart rate Last Admin: 04/22/18 19:13 Dose: 5 mg Oxycodone/Acetaminophen (Percocet 10/325 Mg Tab) 1 tab PO Q6H PRN PRN Reason: Pain, severe (8-10) Pantoprazole Sodium (Protonix Ec Tab) 40 mg PO 0600 [facility] Last Admin: 04/27/18 06:50 Dose: 40 mg Polyethylene Glycol (Miralax) 17 gm PO DAILY [facility] Last Admin: 04/27/18 10:13 Dose: 17 gm Spironolactone (Aldactone) 50 mg PO BID [facility] Last Admin: 04/27/18 09:46 Dose: 50 mg - Labs Labs: 04/27/18 07:15 04/27/18 07:15 PT 19.4 SECONDS (9.4-12.5) H 04/22/18 09:00 INR 1.67 04/22/18 09:00 APTT 43.1 Seconds (25.1-36.5) H 04/22/18 09:00 - Constitutional Appears: Well, Non-toxic, No Acute Distress - Extremities Exam Additional comments: VASC: Nonpalpable DP and PT pulses secondary to chronic indurated edema b/l. Temperature gradient warm to warm b/l. +2 pitting edema bilaterally. NEURO: Gross sensation absent B/L. DERM: Ulceration noted to lateral aspect of right foot from 5th met base/ styloid process extending down to subcutaneous tissue - mixed fibrogranular base and maceration periwound. Serosanguinous drainage present; malodor present. Mario tracking present, no purulence, no fluctuance. Ulceration noted to dorsal aspect of left hallux extending down to subcutaneous tissue - mixed fibrogranular base and maceration periwound; serosanguinous drainage present; malodor present; no fluctuance; no purulence; no undermining; no tracking; no tunneling. Multiple small ulcerations to bilateral legs with malodor. Deep rubor present to bilateral lower extremities from knee joint extending distally into digits. Abrasion noted to left knee with no drainage or purulence present. ORTHO: Diffuse pain on palpation noted to bilateral LE. ROM limited secondary to chronic indurated edema B/L - Neurological Exam Neurological Exam: Alert, Awake - Psychiatric Exam Psychiatric exam: Normal Affect, Normal Mood Assessment and Plan - Assessment and Plan (Free Text) Assessment: 58 year old male with chronic bilateral lower extremity venous stasis ulcerations with severe LE edema Plan: Patient seen and evaluated at bedside Discussed plan with attending, Dr. Meadows Afebrile, WBC 13.4 Bilateral LE MRI negative for OM Bilateral LE arterial duplex reviewed: unremarkable findings Final wound cultures: - R foot wound culture: Acinetobacter Baumanii, MRSA - L leg wound culture: Klebsiella Oxytocia, Stenotrophomonas Maltophilia - Lfoot wound culture: Stenotrophomonas Maltophilia Continue local wound care QD - Wounds cleansed with saline and dressed with maxsorb, DSD Continue LE elevation Continue PT Continue abx per ID - Aztreonam & Linezolid, day 5 Pain control per primary team Podiatry will continue to follow
[2018-04-27 17:35] LABS: BASO # 0.11 K/mm3 (0.0-2.0); BASO % 0.6 % (0.0-3.0); EOS # 0.5 (0.0-0.7); EOS % 2.7 % (1.5-5.0); GRAN # 14.62 (1.4-6.5); GRAN % 85.2 % (50.0-68.0); HEMOGLOBIN 12.6 g/dL (14.0-18.0); LYMPH # 1.2 (1.2-3.4); LYMPH % 6.8 % (22.0-35.0); MEAN CELL VOLUME 90.3 fl (80.0-105.0); MEAN CORPUSCULAR HEMOGLOBIN 30.7 pg (25.0-35.0); MEAN PLATELET VOLUME 8.5 fl (7.0-11.0); MONO # 0.8 (0.1-0.6); MONO % 4.7 % (1.0-6.0); RBC 4.11 10^6/uL (3.5-6.1); RED CELL DISTRIBUTION WIDTH 13.6 % (11.5-14.5); WHITE BLOOD COUNT 17.2 10^3/ul (4.5-11.0)
[2018-04-27] MEDS: Insulin Detemir 100 units/ml Vial (Levemir) SC SCH (21:58)
[2018-04-28] MEDS: Aztreonam 1 Gm in NS 100mL 100 ML IVPB SCH ×3 (05:45→22:18)
[2018-04-28] MEDS: Pantoprazole 40 mg EC Tab PO SCH (05:45)
--- NOTE | 2018-04-28 06:07 | CP.PCM.PN ---
<Nitish Madrigal - Last Filed: 04/28/18 21:07> Subjective - Date & Time of Evaluation Date of Evaluation: 04/28/18 Time of Evaluation: 06:00 - Subjective Subjective: Pt seen and examined. Pt complaining of leg pain, denies chest pain, SOB. Per nurse and chart review pt had an episode of tachycardia overnight HR 140. Objective - Vital Signs/Intake and Output Vital Signs (last 24 hours): Temp Pulse Resp BP Pulse Ox 97.8 F 104 H 21 126/72 95 04/27/18 23:29 04/28/18 02:00 04/27/18 23:29 04/27/18 23:29 04/27/18 18:00 Intake and Output: 04/27/18 04/28/18 18:59 06:59 Intake Total 1020 1000 Output Total 400 1300 Balance 620 -300 - Medications Medications: Current Medications Albuterol/Ipratropium (Duoneb 3 Mg/0.5 Mg (3 Ml) Ud) 3 ml IH [id number] PRN PRN Reason: Wheezing Last Admin: 04/22/18 18:14 Dose: 3 ml Atorvastatin Calcium (Lipitor) 10 mg PO DIN [facility] Last Admin: 04/27/18 17:05 Dose: 10 mg Dabigatran (Pradaxa) 150 mg PO BID [facility] PRN Reason: Protocol Last Admin: 04/27/18 17:04 Dose: 150 mg Diltiazem HCl (Cardizem Cd) 240 mg PO DAILY [facility] Last Admin: 04/27/18 09:47 Dose: 240 mg Furosemide (Lasix) 40 mg PO BID [facility] Last Admin: 04/27/18 17:05 Dose: 40 mg Aztreonam (Azactam 1 Gm) 100 mls @ 100 mls/hr IVPB Q8 [facility] PRN Reason: Protocol Stop: 04/29/18 22:01 Last Admin: 04/28/18 05:45 Dose: 100 mls/hr Linezolid (Zyvox 600mg/300ml D5w) 600 mg in 300 mls @ 200 mls/hr IVPB Q12 [facility] PRN Reason: Protocol Stop: 04/29/18 22:01 Last Admin: 04/27/18 21:57 Dose: 200 mls/hr Insulin Detemir (Levemir) 80 unit SC HS [facility] Last Admin: 04/27/18 21:58 Dose: 80 units Insulin Human Lispro (Humalog) 30 units SC AC [facility] Last Admin: 04/27/18 16:37 Dose: Not Given Insulin Human Regular (Humulin R Med) 0 units SC ACHS [facility] PRN Reason: Protocol Last Admin: 04/27/18 23:21 Dose: Not Given Metoprolol Tartrate (Lopressor) 5 mg IVP Q6 PRN PRN Reason: Heart rate Last Admin: 04/22/18 19:13 Dose: 5 mg Oxycodone/Acetaminophen (Percocet 10/325 Mg Tab) 1 tab PO Q6H PRN PRN Reason: Pain, severe (8-10) Last Admin: 04/27/18 17:05 Dose: 1 tab Pantoprazole Sodium (Protonix Ec Tab) 40 mg PO 0600 [facility] Last Admin: 04/28/18 05:45 Dose: 40 mg Polyethylene Glycol (Miralax) 17 gm PO DAILY [facility] Last Admin: 04/27/18 10:13 Dose: 17 gm Spironolactone (Aldactone) 50 mg PO BID [facility] Last Admin: 04/27/18 09:46 Dose: 50 mg - Labs Labs: 04/27/18 17:33 04/27/18 07:15 PT 19.4 SECONDS (9.4-12.5) H 04/22/18 09:00 INR 1.67 04/22/18 09:00 APTT 43.1 Seconds (25.1-36.5) H 04/22/18 09:00 - Constitutional Appears: No Acute Distress - ENT Exam ENT Exam: Mucous Membranes Moist - Respiratory Exam Respiratory Exam: Clear to Ausculation Bilateral. absent: Respiratory Distress - Cardiovascular Exam Cardiovascular Exam: Tachycardia, +S1, +S2 - GI/Abdominal Exam GI & Abdominal Exam: Soft. absent: Tenderness - Extremities Exam Extremities Exam: Pedal Edema, Tenderness - Skin Additional comments: erythema BL LE Assessment and Plan - Assessment and Plan (Free Text) Assessment: Pt is a 58 yo with a PMH of DM, Atrial fibrillation with RVR, CAD, HTN, venous stasis ulcers, JOSELINE, COPD who is being treated for BL LE cellulitis. Plan: BL LE Cellulits - ID: continue zyvox 600mg IV Q12, and azactam 1g IVPB Q8 - podiatry: continue local wound care, LE elevation, cleaned and dressed with maxsorb, DSD - wound cultures: MRSA, acinetobacter, Klebsiella oxytoca, and Stenotrophomonas maltophilia - ordered fall precautions, moderate - pt found to have a bottle of his home pain meds with him, we will hold all pain medications for the next 24 hours CHF - ECHO: shows severe pulm HTN, 71mm - aldactone: hold, Cr 1.6, improving - ordered weights on pt Hypokalemia - 3.8 currently - continue to monitor Atrial Fib - continue pradaxa 150mg BID PO - lopressor PRN IVP Q6 - telemetry DM - continue levemir 80 units HS - continue lispro 30 AC - ISS <Cora Garcia A - Last Filed: 04/29/18 07:30> Objective - Vital Signs/Intake and Output Vital Signs (last 24 hours): Temp Pulse Resp BP Pulse Ox 97.7 F 105 H 20 121/74 96 04/29/18 05:53 04/29/18 06:00 04/29/18 05:53 04/29/18 05:53 04/29/18 05:53 Intake and Output: 04/29/18 04/29/18 06:59 18:59 Intake Total 500 Balance 500 - Medications Medications: Current Medications Albuterol/Ipratropium (Duoneb 3 Mg/0.5 Mg (3 Ml) Ud) 3 ml IH [id number] PRN PRN Reason: Wheezing Last Admin: 04/22/18 18:14 Dose: 3 ml Atorvastatin Calcium (Lipitor) 10 mg PO DIN [facility] Last Admin: 04/28/18 17:02 Dose: 10 mg Dabigatran (Pradaxa) 150 mg PO BID [facility] PRN Reason: Protocol Last Admin: 04/28/18 17:03 Dose: 150 mg Diltiazem HCl (Cardizem Cd) 240 mg PO DAILY [facility] Last Admin: 04/28/18 09:20 Dose: 240 mg Furosemide (Lasix) 40 mg PO BID [facility] Last Admin: 04/28/18 17:02 Dose: 40 mg Aztreonam (Azactam 1 Gm) 100 mls @ 100 mls/hr IVPB Q8 [facility]HEED PRN Reason: Protocol Stop: 04/29/18 22:01 Last Admin: 04/29/18 05:42 Dose: 100 mls/hr Linezolid (Zyvox 600mg/300ml D5w) 600 mg in 300 mls @ 200 mls/hr IVPB Q12 [facility]ED PRN Reason: Protocol Stop: 04/29/18 22:01 Last Admin: 04/28/18 22:17 Dose: 200 mls/hr Insulin Detemir (Levemir) 80 unit SC HS [facility] Last Admin: 04/28/18 22:18 Dose: 80 units Insulin Human Lispro (Humalog) 30 units SC AC [facility] Last Admin: 04/28/18 16:21 Dose: Not Given Insulin Human Regular (Humulin R Med) 0 units SC ACHS [facility] PRN Reason: Protocol Last Admin: 04/28/18 22:12 Dose: Not Given Metoprolol Tartrate (Lopressor) 5 mg IVP Q6 PRN PRN Reason: Heart rate Last Admin: 04/22/18 19:13 Dose: 5 mg Pantoprazole Sodium (Protonix Ec Tab) 40 mg PO 0600 [facility] Last Admin: 04/29/18 05:42 Dose: 40 mg Polyethylene Glycol (Miralax) 17 gm PO DAILY [facility] Last Admin: 04/28/18 10:16 Dose: Not Given Spironolactone (Aldactone) 50 mg PO BID [facility] Last Admin: 04/27/18 09:46 Dose: 50 mg - Labs Labs: 04/28/18 18:52 04/28/18 05:00 PT 19.4 SECONDS (9.4-12.5) H 04/22/18 09:00 INR 1.67 04/22/18 09:00 APTT 43.1 Seconds (25.1-36.5) H 04/22/18 09:00 Attending/Attestation - Attestation I have personally seen and examined this patient.: Yes I have fully participated in the care of the patient.: Yes I have reviewed all pertinent clinical information, including history, physical exam and plan: Yes Notes (Text): 04/28/18 58 year old male with past medical history of diabetes, afib, CAD, hypertension , chronic venous stasis ulcers, COPD and CKD who presented with bilateral leg cellulitis, acute on chronic CHF and afib with rvr. Continue with iv antibiotics as per ID and wound care as per podiatry. MRI was negative for osteomyelitis. Leukocytosis has improved. Wound culture grew MRSA, klebsiella oxytocia, acinetobacter and stenotrophomonas. CHF has improved. Patient is on lasix. Aldactone was held secondary to MADELYN which is improving. Afib also improved with cardizem and lopressor. He is on pradaxa for anticoagulation. This morning patient was hypoxic and lethargic. At bedside his home medications , percocet and xanax, were found and confiscated. ABG is ordered. Will continue to monitor his mental status. He was counselled on risks of continued substance abuse. PT follow up requested for d/c planning. Cora Garcia MD Hospitalist.
[2018-04-28] MEDS: Insulin Lispro 1 UNITS/0.01 ML SC SCH ×3 (08:26→16:21)
[2018-04-28] MEDS: Insulin Reg-MEDIUM-Coverage SC SCH ×4 (08:27→22:12)
[2018-04-28 09:17] LABS: BASO # 0.06 K/mm3 (0.0-2.0); BASO % 0.5 % (0.0-3.0); EOS # 0.3 (0.0-0.7); EOS % 2.5 % (1.5-5.0); GRAN # 9.2 (1.4-6.5); GRAN % 83.6 % (50.0-68.0); HEMOGLOBIN 11.9 g/dL (14.0-18.0); LYMPH % 9.2 % (22.0-35.0); MEAN CELL VOLUME 89.6 fl (80.0-105.0); MEAN CORPUSCULAR HEMOGLOBIN 30.8 pg (25.0-35.0); MEAN CORPUSCULAR HGB CONC 34.4 g/dl (31.0-37.0); MEAN PLATELET VOLUME 8.7 fl (7.0-11.0); MONO # 0.5 (0.1-0.6); MONO % 4.2 % (1.0-6.0); RBC 3.86 10^6/uL (3.5-6.1); RED CELL DISTRIBUTION WIDTH 13.6 % (11.5-14.5)
[2018-04-28] MEDS: Oxycodone/Acetaminophen 10/325 mg Tab PO PRN (09:20)
[2018-04-28] MEDS: diltiaZEM 240 mg/24 Hours CD Cap PO SCH (09:20)
[2018-04-28 09:21] LABS: ALB/GLOB RATIO 0.9 (1.1-1.8); ALBUMIN 3.6 g/dL (3.0-4.8); CALCIUM 9.4 mg/dL (8.4-10.5)
[2018-04-28] MEDS: Linezolid 600 mg in D5W 300 ml 600 MG/300 ML BAG IVPB SCH ×2 (09:21→22:17)
[2018-04-28] MEDS: POLYETHYLENE GLYCOL 3350 17 GM/Dose PACKET PO SCH ×2 (09:21→10:16)
--- NOTE | 2018-04-28 11:25 | CP.PCM.PN ---
Subjective - Date & Time of Evaluation Date of Evaluation: 04/28/18 Time of Evaluation: 11:22 - Subjective Subjective: Podiatry Progress Note for Dr. Meadows 58M seen at bedside with Dr. Meadows for b/l LE ulcerations. Patient appears highly lethargic during examination and is made to lay back in bed. Nurses have been made aware and were instructed to monitor him closely for any acute behavioral changes. Patient states that he is experiencing a good deal of pain to his b/l LE. He denies any acute overnight events. Denies any new pedal complaints. Serous strikethrough noted to entirety of b/l dressings. Denies any recent N/V/F/C/CP/SOB/D Objective - Vital Signs/Intake and Output Vital Signs (last 24 hours): Temp Pulse Resp BP Pulse Ox 97.4 F L 85 19 126/68 97 04/28/18 06:00 04/28/18 09:20 04/28/18 06:00 04/28/18 09:20 04/28/18 06:00 Intake and Output: 04/28/18 04/28/18 06:59 18:59 Intake Total 1500 Output Total 1300 Balance 200 - Medications Medications: Current Medications Albuterol/Ipratropium (Duoneb 3 Mg/0.5 Mg (3 Ml) Ud) 3 ml IH [id number] PRN PRN Reason: Wheezing Last Admin: 04/22/18 18:14 Dose: 3 ml Atorvastatin Calcium (Lipitor) 10 mg PO DIN [facility] Last Admin: 04/27/18 17:05 Dose: 10 mg Dabigatran (Pradaxa) 150 mg PO BID [facility] PRN Reason: Protocol Last Admin: 04/28/18 09:20 Dose: 150 mg Diltiazem HCl (Cardizem Cd) 240 mg PO DAILY [facility] Last Admin: 04/28/18 09:20 Dose: 240 mg Furosemide (Lasix) 40 mg PO BID [facility] Last Admin: 04/28/18 09:20 Dose: 40 mg Aztreonam (Azactam 1 Gm) 100 mls @ 100 mls/hr IVPB Q8 [facility] PRN Reason: Protocol Stop: 04/29/18 22:01 Last Admin: 04/28/18 05:45 Dose: 100 mls/hr Linezolid (Zyvox 600mg/300ml D5w) 600 mg in 300 mls @ 200 mls/hr IVPB Q12 [facility] PRN Reason: Protocol Stop: 04/29/18 22:01 Last Admin: 04/28/18 09:21 Dose: 200 mls/hr Insulin Detemir (Levemir) 80 unit SC HS [facility] Last Admin: 04/27/18 21:58 Dose: 80 units Insulin Human Lispro (Humalog) 30 units SC AC [facility] Last Admin: 04/28/18 08:26 Dose: 30 u Insulin Human Regular (Humulin R Med) 0 units SC ACHS [facility] PRN Reason: Protocol Last Admin: 04/28/18 08:27 Dose: 1 units Metoprolol Tartrate (Lopressor) 5 mg IVP Q6 PRN PRN Reason: Heart rate Last Admin: 04/22/18 19:13 Dose: 5 mg Oxycodone/Acetaminophen (Percocet 10/325 Mg Tab) 1 tab PO Q6H PRN PRN Reason: Pain, severe (8-10) Last Admin: 04/28/18 09:20 Dose: 1 tab Pantoprazole Sodium (Protonix Ec Tab) 40 mg PO 0600 [facility] Last Admin: 04/28/18 05:45 Dose: 40 mg Polyethylene Glycol (Miralax) 17 gm PO DAILY [facility] Last Admin: 04/28/18 10:16 Dose: Not Given Spironolactone (Aldactone) 50 mg PO BID [facility] Last Admin: 04/27/18 09:46 Dose: 50 mg - Labs Labs: 04/28/18 07:30 04/28/18 05:00 PT 19.4 SECONDS (9.4-12.5) H 04/22/18 09:00 INR 1.67 04/22/18 09:00 APTT 43.1 Seconds (25.1-36.5) H 04/22/18 09:00 - Constitutional Appears: Well, Non-toxic, No Acute Distress, Unkempt - Extremities Exam Additional comments: LE focused exam: VASC: Nonpalpable DP and PT pulses secondary to chronic indurated edema b/l. Temperature gradient warm to warm b/l. +2 pitting edema bilaterally. NEURO: Gross sensation absent B/L. DERM: Ulceration noted to lateral aspect of right foot from 5th met base/ styloid process extending down to subcutaneous tissue - mixed fibrogranular base and maceration periwound. Serosanguinous drainage present; malodor present. No tracking present, no purulence, no fluctuance. Ulceration noted to dorsal aspect of left hallux extending down to subcutaneous tissue - mixed fibrogranular base and maceration periwound; serosanguinous drainage present; malodor present; no fluctuance; no purulence; no undermining; no tracking; no tunneling. Superficial ulceration noted to left anterior leg extending down to subcutaneous tissue - mixed fibrogranular base; serosanguinous drainage present ; malodor present; no fluctuance; no purulence; no undermining; no tracking; no tunneling. Multiple small ulcerations to bilateral legs with malodor. Deep rubor present to bilateral lower extremities from knee joint extending distally into digits. Abrasion noted to left knee with no drainage or purulence present. ORTHO: Diffuse pain on palpation noted to bilateral LE. ROM limited secondary to chronic indurated edema B/L - Neurological Exam Neurological Exam: Alert, Altered, Awake - Psychiatric Exam Psychiatric exam: Normal Affect, Normal Mood Assessment and Plan - Assessment and Plan (Free Text) Assessment: 58M seen at bedside with Dr. Meadows for b/l LE ulcerations Plan: Patient seen and evaluated with attending Dr. Meadows Afebrile, WBC 11.0 from 17.2 Continue abx per ID Wound cx R foot - Acinetobacter Baumannii, MRSA Wound cx L foot - Klebsiella Oxytoca, Stenotrophomonas Maltophilia Arterial studies: Relatively normal IGNACIO/PVR at rest LE MRI: No evidence of OM Wounds dressed with Maxorb/Medipore and Maxorb/Optifoam No plan for surgical intervention at this time Podiatry will continue to follow while patient in house
--- NOTE | 2018-04-28 14:39 | PN ---
DATE: 04/28/2018 SUBJECTIVE: The patient is sleepy and reportedly he is taking some of his pain medications beside what is being prescribed to him in the hospital. PHYSICAL EXAMINATION: VITAL SIGNS: Blood pressure 139/90, heart rate 85, temperature 98, respirations 20. HEENT: Head: Normocephalic. CHEST: Bilateral rhonchi. HEART: S1 and S2 regular. EXTREMITIES: Bilateral leg and foot cellulitis. LABORATORY DATA: Today's hemoglobin and hematocrit 11.9 and 34.6. White count and platelet count are within normal limit. Today's SMA-7: Sodium 135, potassium 3.8, chloride 97, CO2 of 27, glucose 157, BUN 43, creatinine 1. The blood cultures are negative after 5 days. ASSESSMENT: 1. Chronic atrial fibrillation. 2. Bilateral foot and leg cellulitis. 3. Uncontrolled diabetes mellitus. 4. Chronic renal insufficiency. 5. Severe pulmonary hypertension. RECOMMENDATIONS: Aldactone 25 mg once a day, Azactam 1 g every 8 hours, Cardizem CD 240 mg once a day, Lasix 40 mg p.o. twice a day, Lipitor 5 mg intravenously every 6 hours p.r.n., Zyvox 600 mg intravenously every 12 hours, . Kendell Patel MD
[2018-04-28 16:59] LABS: ARTERIAL BLOOD GAS HCO3 24.6 mmol/L (21-28); ARTERIAL BLOOD GAS HEMOGLOBIN 11.5 g/dL (11.7-17.4); ARTERIAL BLOOD GAS O2 CONTENT 15.9 ML/dl (15-23); ARTERIAL BLOOD GAS O2 SAT 99.4 % (95-98); ARTERIAL BLOOD GAS PCO2 37 mm/Hg (35-45); ARTERIAL BLOOD GAS PH 7.43 (7.35-7.45); ARTERIAL BLOOD GAS TCO2 25.7 mmol.L (22-28)
--- NOTE | 2018-04-28 17:22 | CP.PCM.PN ---
Subjective - Date & Time of Evaluation Date of Evaluation: 04/27/18 Time of Evaluation: 10:05 - Subjective Subjective: No fevers, no nausea or diarrhea, pain in the lower extremities is slowly improving. Objective - Vital Signs/Intake and Output Vital Signs (last 24 hours): Temp Pulse Resp BP Pulse Ox 98.2 F 60 20 121/75 98 04/26/18 12:00 04/26/18 12:00 04/26/18 12:00 04/26/18 12:00 04/26/18 06:00 Intake and Output: 04/26/18 04/26/18 06:59 18:59 Intake Total 660 Output Total 1700 Balance -1040 - Medications Medications: Current Medications Albuterol/Ipratropium (Duoneb 3 Mg/0.5 Mg (3 Ml) Ud) 3 ml IH [id number] PRN PRN Reason: Wheezing Last Admin: 04/22/18 18:14 Dose: 3 ml Atorvastatin Calcium (Lipitor) 10 mg PO DIN [facility] Last Admin: 04/25/18 17:30 Dose: 10 mg Dabigatran (Pradaxa) 150 mg PO BID [facility] PRN Reason: Protocol Last Admin: 04/26/18 10:07 Dose: 150 mg Diltiazem HCl (Cardizem Cd) 240 mg PO DAILY [facility] Last Admin: 04/26/18 10:06 Dose: 240 mg Furosemide (Lasix) 40 mg PO BID [facility] Last Admin: 04/26/18 10:07 Dose: 40 mg Aztreonam (Azactam 1 Gm) 100 mls @ 100 mls/hr IVPB Q8 [facility] PRN Reason: Protocol Stop: 04/29/18 22:01 Last Admin: 04/26/18 13:56 Dose: 100 mls/hr Linezolid (Zyvox 600mg/300ml D5w) 600 mg in 300 mls @ 200 mls/hr IVPB Q12 [facility] PRN Reason: Protocol Stop: 04/29/18 22:01 Last Admin: 04/26/18 10:07 Dose: 200 mls/hr Insulin Detemir (Levemir) 80 unit SC HS [facility] Last Admin: 04/25/18 22:12 Dose: 80 units Insulin Human Lispro (Humalog) 30 units SC AC [facility] Last Admin: 04/26/18 12:30 Dose: Not Given Insulin Human Regular (Humulin R Med) 0 units SC ACHS [facility] PRN Reason: Protocol Last Admin: 04/26/18 12:31 Dose: Not Given Metoprolol Tartrate (Lopressor) 5 mg IVP Q6 PRN PRN Reason: Heart rate Last Admin: 04/22/18 19:13 Dose: 5 mg Oxycodone/Acetaminophen (Percocet 10/325 Mg Tab) 1 tab PO Q4H PRN PRN Reason: Pain, moderate (4-7) Last Admin: 04/26/18 14:09 Dose: 1 tab Pantoprazole Sodium (Protonix Ec Tab) 40 mg PO 0600 [facility] Last Admin: 04/26/18 05:46 Dose: 40 mg Polyethylene Glycol (Miralax) 17 gm PO DAILY [facility] Last Admin: 04/26/18 10:06 Dose: 17 gm Spironolactone (Aldactone) 50 mg PO BID [facility] - Labs Labs: 04/26/18 06:45 04/26/18 06:45 PT 19.4 SECONDS (9.4-12.5) H 04/22/18 09:00 INR 1.67 04/22/18 09:00 APTT 43.1 Seconds (25.1-36.5) H 04/22/18 09:00 - Constitutional Appears: No Acute Distress, Chronically Ill - Head Exam Head Exam: NORMAL INSPECTION - Respiratory Exam Respiratory Exam: Decreased Breath Sounds - Cardiovascular Exam Cardiovascular Exam: +S1, +S2 - GI/Abdominal Exam GI & Abdominal Exam: Soft. absent: Tenderness - Extremities Exam Additional comments: both lower extremities with dressings in place Assessment and Plan - Assessment and Plan (Free Text) Plan: Assessment severe sepsis with acute on chronic renal failure due to bilateral lower extremity cellulitis in this patient with chronic venous stasis and lymphedema and history of lower extremity cellulitis, slowly improving - growing Acinetobacter, MRSA and Stenotrophomonas chronic lower extremity edema CAD HTN atrial fibrillation DM JOSELINE morbid obesity with BMI 42 Plan continue Zyvox and Azactam day 6 (Was given Vancomycin and Zosyn in the ED); blood cx are negative; follow up final wound cx results - can be switched to PO Levaquin and PO Zyvox to complete the 7-10 days of therapy MRI of the legs and feet do not show osteomyelitis discussed with Dr. Garcia
[2018-04-28 19:02] LABS: BASO # 0.05 K/mm3 (0.0-2.0); BASO % 0.5 % (0.0-3.0); EOS # 0.2 (0.0-0.7); EOS % 2.1 % (1.5-5.0); GRAN # 8.59 (1.4-6.5); GRAN % 80.2 % (50.0-68.0); HEMOGLOBIN 12.1 g/dL (14.0-18.0); LYMPH # 1.3 (1.2-3.4); LYMPH % 12.1 % (22.0-35.0); MEAN CELL VOLUME 90.5 fl (80.0-105.0); MEAN CORPUSCULAR HEMOGLOBIN 30.4 pg (25.0-35.0); MEAN CORPUSCULAR HGB CONC 33.6 g/dl (31.0-37.0); MEAN PLATELET VOLUME 8.3 fl (7.0-11.0); MONO # 0.6 (0.1-0.6); MONO % 5.1 % (1.0-6.0); RBC 3.98 10^6/uL (3.5-6.1); RED CELL DISTRIBUTION WIDTH 13.7 % (11.5-14.5); WHITE BLOOD COUNT 10.7 10^3/ul (4.5-11.0)
[2018-04-28 19:27] LABS: BARBITURATES, UR NEGATIVE (NEGATIVE); BENZODIAZEPINES, UR POSITIVE (NEGATIVE); OPIATES, UR POSITIVE (NEGATIVE); PHENCYCLIDINE, UR NEGATIVE (NEGATIVE)
[2018-04-28] MEDS: Insulin Detemir 100 units/ml Vial (Levemir) SC SCH (22:18)
[2018-04-29] MEDS: Pantoprazole 40 mg EC Tab PO SCH (05:42)
[2018-04-29] MEDS: Aztreonam 1 Gm in NS 100mL 100 ML IVPB SCH ×3 (05:42→22:56)
[2018-04-29 08:21] LABS: BASO # 0.06 K/mm3 (0.0-2.0); BASO % 0.6 % (0.0-3.0); EOS # 0.3 (0.0-0.7); EOS % 3.6 % (1.5-5.0); GRAN # 7.25 (1.4-6.5); GRAN % 76.3 % (50.0-68.0); HEMOGLOBIN 11.2 g/dL (14.0-18.0); LYMPH # 1.3 (1.2-3.4); LYMPH % 13.3 % (22.0-35.0); MEAN CELL VOLUME 90.8 fl (80.0-105.0); MEAN CORPUSCULAR HEMOGLOBIN 30.3 pg (25.0-35.0); MEAN CORPUSCULAR HGB CONC 33.3 g/dl (31.0-37.0); MEAN PLATELET VOLUME 8.2 fl (7.0-11.0); MONO # 0.6 (0.1-0.6); MONO % 6.2 % (1.0-6.0); RBC 3.7 10^6/uL (3.5-6.1); RED CELL DISTRIBUTION WIDTH 13.8 % (11.5-14.5); WHITE BLOOD COUNT 9.5 10^3/ul (4.5-11.0)
[2018-04-29] MEDS: Insulin Lispro 1 UNITS/0.01 ML SC SCH ×3 (08:30→17:22)
[2018-04-29 08:35] LABS: BLOOD UREA NITROGEN 34 mg/dL (7-21); CALCIUM 9.4 mg/dL (8.4-10.5); GFR NON-AFRICAN AMERICAN > 60
[2018-04-29] MEDS: diltiaZEM 240 mg/24 Hours CD Cap PO SCH (09:32)
[2018-04-29] MEDS: Insulin Reg-MEDIUM-Coverage SC SCH ×4 (09:37→22:54)
[2018-04-29] MEDS: Linezolid 600 mg in D5W 300 ml 600 MG/300 ML BAG IVPB SCH ×2 (09:38→22:55)
[2018-04-29] MEDS: POLYETHYLENE GLYCOL 3350 17 GM/Dose PACKET PO SCH (09:38)
--- NOTE | 2018-04-29 13:29 | CP.PCM.PN ---
<Dharmesh Noonan - Last Filed: 04/29/18 13:26> Subjective - Date & Time of Evaluation Date of Evaluation: 04/29/18 Time of Evaluation: 13:26 - Subjective Subjective: Podiatry Progress Note for Dr. Kaur 58M seen at bedside with Dr. Meadows for b/l LE ulcerations. Patient is AAO x 3 and NAD. Appears to be much more oriented today than he was yesterday. He denies any acute overnight events or new pedal complaints at this time. Serous strikethrough noted to entirety of b/l dressings with pooling of fluid on the floor. Patient's legs are seen to be in dependent position, hanging off bed at time of visit. Denies any recent N/V/F/C/CP/SOB/D Objective - Vital Signs/Intake and Output Vital Signs (last 24 hours): Temp Pulse Resp BP Pulse Ox 98.2 F 122 H 20 117/61 96 04/29/18 12:00 04/29/18 12:00 04/29/18 12:00 04/29/18 12:00 04/29/18 05:53 Intake and Output: 04/29/18 04/29/18 06:59 18:59 Intake Total 500 120 Output Total 350 Balance 500 -230 - Medications Medications: Current Medications Albuterol/Ipratropium (Duoneb 3 Mg/0.5 Mg (3 Ml) Ud) 3 ml IH [id number] PRN PRN Reason: Wheezing Last Admin: 04/22/18 18:14 Dose: 3 ml Atorvastatin Calcium (Lipitor) 10 mg PO DIN [facility] Last Admin: 04/28/18 17:02 Dose: 10 mg Dabigatran (Pradaxa) 150 mg PO BID [facility] PRN Reason: Protocol Last Admin: 04/29/18 10:07 Dose: 150 mg Diltiazem HCl (Cardizem Cd) 240 mg PO DAILY [facility] Last Admin: 04/29/18 09:32 Dose: 240 mg Furosemide (Lasix) 40 mg PO BID [facility] Last Admin: 04/29/18 09:37 Dose: 40 mg Aztreonam (Azactam 1 Gm) 100 mls @ 100 mls/hr IVPB Q8 [facility] PRN Reason: Protocol Stop: 04/29/18 22:01 Last Admin: 04/29/18 05:42 Dose: 100 mls/hr Linezolid (Zyvox 600mg/300ml D5w) 600 mg in 300 mls @ 200 mls/hr IVPB Q12 [facility] PRN Reason: Protocol Stop: 04/29/18 22:01 Last Admin: 04/29/18 09:38 Dose: 200 mls/hr Insulin Detemir (Levemir) 80 unit SC HS [facility] Last Admin: 04/28/18 22:18 Dose: 80 units Insulin Human Lispro (Humalog) 30 units SC AC [facility] Last Admin: 04/29/18 08:30 Dose: 30 u Insulin Human Regular (Humulin R Med) 0 units SC ACHS [facility] PRN Reason: Protocol Last Admin: 04/29/18 09:37 Dose: Not Given Metoprolol Tartrate (Lopressor) 5 mg IVP Q6 PRN PRN Reason: Heart rate Last Admin: 04/22/18 19:13 Dose: 5 mg Pantoprazole Sodium (Protonix Ec Tab) 40 mg PO 0600 [facility] Last Admin: 04/29/18 05:42 Dose: 40 mg Polyethylene Glycol (Miralax) 17 gm PO DAILY [facility] Last Admin: 04/29/18 09:38 Dose: Not Given Spironolactone (Aldactone) 50 mg PO BID [facility] Last Admin: 04/27/18 09:46 Dose: 50 mg - Labs Labs: 04/29/18 08:00 04/29/18 08:00 PT 19.4 SECONDS (9.4-12.5) H 04/22/18 09:00 INR 1.67 04/22/18 09:00 APTT 43.1 Seconds (25.1-36.5) H 04/22/18 09:00 - Constitutional Appears: Well, Non-toxic, No Acute Distress - Extremities Exam Additional comments: LE focused exam: VASC: Nonpalpable DP and PT pulses secondary to chronic indurated edema b/l. Temperature gradient warm to warm b/l. +2 pitting edema bilaterally. NEURO: Epicritic and protective sensation grossly intact b/l. DERM: Ulceration noted to lateral aspect of right foot from 5th met base/ styloid process extending down to subcutaneous tissue - mixed fibrogranular base and maceration periwound. Serosanguinous drainage present; malodor present. No tracking present, no purulence, no fluctuance. Ulceration noted to dorsal aspect of left hallux extending down to subcutaneous tissue - mixed fibrogranular base and maceration periwound; serosanguinous drainage present; malodor present; no fluctuance; no purulence; no undermining; no tracking; no tunneling. Superficial ulceration noted to left anterior leg extending down to subcutaneous tissue - mixed fibrogranular base; serosanguinous drainage present ; malodor present; no fluctuance; no purulence; no undermining; no tracking; no tunneling. Multiple small ulcerations to bilateral legs with malodor. Deep rubor present to bilateral lower extremities from knee joint extending distally into digits. Abrasion noted to left knee with no drainage or purulence present Severe drainage noted to b/l LE wounds ORTHO: Diffuse pain on palpation noted to bilateral LE. ROM severely limited secondary to chronic indurated edema B/L - Neurological Exam Neurological Exam: Alert, Awake, Oriented x3 - Psychiatric Exam Psychiatric exam: Normal Affect, Normal Mood Assessment and Plan - Assessment and Plan (Free Text) Assessment: 58M seen at bedside with Dr. Meadows for b/l LE ulcerations Plan: Patient seen and evaluated with Dr. Kaur Afebrile, absent leukocytosis Continue abx per ID Wound cx R foot - Acinetobacter Baumannii, MRSA Wound cx L foot - Klebsiella Oxytoca, Stenotrophomonas Maltophilia Arterial studies: Relatively normal IGNACIO/PVR at rest LE MRI: No evidence of OM Wounds dressed with Maxorb/Medipore and Maxorb/Optifoam No plan for surgical intervention at this time Patient informed to keep legs elevated at all times Podiatry will continue to follow while patient in house <Andres Kaur - Last Filed: 04/29/18 16:54> Objective - Vital Signs/Intake and Output Vital Signs (last 24 hours): Temp Pulse Resp BP Pulse Ox 98.2 F 102 H 20 117/61 96 04/29/18 12:00 04/29/18 14:00 04/29/18 12:00 04/29/18 12:00 04/29/18 05:53 Intake and Output: 04/29/18 04/29/18 06:59 18:59 Intake Total 500 120 Output Total 350 Balance 500 -230 - Medications Medications: Current Medications Albuterol/Ipratropium (Duoneb 3 Mg/0.5 Mg (3 Ml) Ud) 3 ml IH [id number] PRN PRN Reason: Wheezing Last Admin: 04/22/18 18:14 Dose: 3 ml Atorvastatin Calcium (Lipitor) 10 mg PO DIN [facility] Last Admin: 04/28/18 17:02 Dose: 10 mg Dabigatran (Pradaxa) 150 mg PO BID [facility] PRN Reason: Protocol Last Admin: 04/29/18 10:07 Dose: 150 mg Digoxin (Lanoxin) 0.25 mg PO 1400 [facility] Diltiazem HCl (Cardizem Cd) 240 mg PO DAILY [facility] Last Admin: 04/29/18 09:32 Dose: 240 mg Furosemide (Lasix) 40 mg PO BID [facility] Last Admin: 04/29/18 09:37 Dose: 40 mg Aztreonam (Azactam 1 Gm) 100 mls @ 100 mls/hr IVPB Q8 [facility] PRN Reason: Protocol Stop: 04/29/18 22:01 Last Admin: 04/29/18 14:44 Dose: 100 mls/hr Linezolid (Zyvox 600mg/300ml D5w) 600 mg in 300 mls @ 200 mls/hr IVPB Q12 [facility] PRN Reason: Protocol Stop: 04/29/18 22:01 Last Admin: 04/29/18 09:38 Dose: 200 mls/hr Insulin Detemir (Levemir) 80 unit SC HS [facility] Last Admin: 04/28/18 22:18 Dose: 80 units Insulin Human Lispro (Humalog) 30 units SC AC [facility] Last Admin: 04/29/18 14:47 Dose: 30 u Insulin Human Regular (Humulin R Med) 0 units SC ACHS [facility] PRN Reason: Protocol Last Admin: 04/29/18 09:37 Dose: Not Given Metoprolol Tartrate (Lopressor) 5 mg IVP Q6 PRN PRN Reason: Heart rate Last Admin: 04/22/18 19:13 Dose: 5 mg Pantoprazole Sodium (Protonix Ec Tab) 40 mg PO 0600 [facility] Last Admin: 04/29/18 05:42 Dose: 40 mg Polyethylene Glycol (Miralax) 17 gm PO DAILY [facility] Last Admin: 04/29/18 09:38 Dose: Not Given Spironolactone (Aldactone) 50 mg PO BID [facility] Last Admin: 04/27/18 09:46 Dose: 50 mg - Labs Labs: 04/29/18 08:00 04/29/18 08:00 PT 19.4 SECONDS (9.4-12.5) H 04/22/18 09:00 INR 1.67 04/22/18 09:00 APTT 43.1 Seconds (25.1-36.5) H 04/22/18 09:00 Attending/Attestation - Attestation I have personally seen and examined this patient.: Yes I have fully participated in the care of the patient.: Yes I have reviewed all pertinent clinical information, including history, physical exam and plan: Yes
--- NOTE | 2018-04-29 16:54 | PN ---
DATE: 04/29/2018 SUBJECTIVE: The patient denies chest pain. He is complaining of bilateral leg pain. PHYSICAL EXAMINATION VITAL SIGNS: Blood pressure 117/61, heart rate 122, temperature 98.2, respirations 20. HEENT: Normocephalic. CHEST: Bilateral rhonchi. HEART: S1 and S2 regular. EXTREMITIES: Bilateral leg cellulitis. LABORATORY DATA: Today's hemoglobin and hematocrit 11.1 and 33.6. White count and platelet count are within normal limits. SMA-7: Sodium 136, potassium of 4.1, chloride 97, CO2 of 30, glucose 142, BUN 34, and creatinine of 1.2. ASSESSMENT: 1. Chronic atrial fibrillation. 2. Bilateral leg and foot cellulitis. 3. Chronic obstructive lung disease. 4. Severe pulmonary hypertension. RECOMMENDATIONS: Continue Aldactone 50 mg once a day, Cardizem CD 240 mg once a day, Lasix 40 mg p.o. twice a day, Lipitor 10 mg once a day, Lopressor 50 mg intravenously every 6 hours, Pradaxa 150 mg once a day, Zyvox 600 mg intravenously every 12 hours. I discussed the case with the medical superintendent and recommended initiating oral digoxin 0.25 mg daily. Kendell Patel MD
[2018-04-29] MEDS: Digoxin 250 mcg (0.25 mg) Tab PO SCH (17:23)
--- NOTE | 2018-04-29 18:03 | CP.PCM.PN ---
<Nitish Madrigal - Last Filed: 04/29/18 18:33> Subjective - Date & Time of Evaluation Date of Evaluation: 04/29/18 Time of Evaluation: 06:00 - Subjective Subjective: Pt seen and examined this morning. No new complaints. Objective - Vital Signs/Intake and Output Vital Signs (last 24 hours): Temp Pulse Resp BP Pulse Ox 98 F 92 H 18 110/67 96 04/29/18 17:54 04/29/18 17:54 04/29/18 17:54 04/29/18 17:54 04/29/18 05:53 Intake and Output: 04/29/18 04/29/18 06:59 18:59 Intake Total 500 120 Output Total 350 Balance 500 -230 - Medications Medications: Current Medications Albuterol/Ipratropium (Duoneb 3 Mg/0.5 Mg (3 Ml) Ud) 3 ml IH [id number] PRN PRN Reason: Wheezing Last Admin: 04/22/18 18:14 Dose: 3 ml Atorvastatin Calcium (Lipitor) 10 mg PO DIN [facility] Last Admin: 04/29/18 17:27 Dose: 10 mg Dabigatran (Pradaxa) 150 mg PO BID [facility] PRN Reason: Protocol Last Admin: 04/29/18 17:27 Dose: 150 mg Digoxin (Lanoxin) 0.25 mg PO 1400 [facility] Last Admin: 04/29/18 17:23 Dose: 0.25 mg Diltiazem HCl (Cardizem Cd) 240 mg PO DAILY [facility] Last Admin: 04/29/18 09:32 Dose: 240 mg Furosemide (Lasix) 40 mg PO BID [facility] Last Admin: 04/29/18 17:27 Dose: 40 mg Aztreonam (Azactam 1 Gm) 100 mls @ 100 mls/hr IVPB Q8 [facility] PRN Reason: Protocol Stop: 04/29/18 22:01 Last Admin: 04/29/18 14:44 Dose: 100 mls/hr Linezolid (Zyvox 600mg/300ml D5w) 600 mg in 300 mls @ 200 mls/hr IVPB Q12 [facility] PRN Reason: Protocol Stop: 04/29/18 22:01 Last Admin: 04/29/18 09:38 Dose: 200 mls/hr Insulin Detemir (Levemir) 80 unit SC HS [facility] Last Admin: 04/28/18 22:18 Dose: 80 units Insulin Human Lispro (Humalog) 30 units SC AC [facility] Last Admin: 04/29/18 17:22 Dose: 30 u Insulin Human Regular (Humulin R Med) 0 units SC ACHS [facility] PRN Reason: Protocol Last Admin: 04/29/18 17:23 Dose: 1 units Metoprolol Tartrate (Lopressor) 5 mg IVP Q6 PRN PRN Reason: Heart rate Last Admin: 04/22/18 19:13 Dose: 5 mg Pantoprazole Sodium (Protonix Ec Tab) 40 mg PO 0600 [facility] Last Admin: 04/29/18 05:42 Dose: 40 mg Polyethylene Glycol (Miralax) 17 gm PO DAILY [facility] Last Admin: 04/29/18 09:38 Dose: Not Given Spironolactone (Aldactone) 50 mg PO BID [facility] Last Admin: 04/27/18 09:46 Dose: 50 mg - Labs Labs: 04/29/18 08:00 04/29/18 08:00 PT 19.4 SECONDS (9.4-12.5) H 04/22/18 09:00 INR 1.67 04/22/18 09:00 APTT 43.1 Seconds (25.1-36.5) H 04/22/18 09:00 - Constitutional Appears: No Acute Distress - Head Exam Head Exam: ATRAUMATIC - ENT Exam ENT Exam: Mucous Membranes Moist - Respiratory Exam Respiratory Exam: Clear to Ausculation Bilateral, NORMAL BREATHING PATTERN - Cardiovascular Exam Cardiovascular Exam: Irregular Rhythm, +S1, +S2 - GI/Abdominal Exam GI & Abdominal Exam: Soft, Normal Bowel Sounds. absent: Tenderness - Extremities Exam Extremities Exam: Full ROM Additional comments: BL cellulitis and erythema LE - Psychiatric Exam Psychiatric exam: Normal Affect, Normal Mood Assessment and Plan - Assessment and Plan (Free Text) Assessment: Pt is a 58 yo with a PMH of DM, Atrial fibrillation with RVR, CAD, HTN, venous stasis ulcers, JOSELINE, COPD who is being treated for BL LE cellulitis. Plan: BL LE Cellulits - ID: continue zyvox 600mg IV Q12, and azactam 1g IVPB Q8, will transition to PO antibiotics tomorrow - podiatry: continue local wound care, LE elevation, cleaned and dressed with maxsorb, DSD, no plan for surgical intervention at this time - wound cultures: MRSA, acinetobacter, Klebsiella oxytoca, and Stenotrophomonas maltophilia - ordered fall precautions, moderate - coordinating with case management and SRINIVAS for pt discharge CHF - ECHO: shows severe pulm HTN, 71mm - aldactone: hold, Cr 1.2, improving - ordered weights on pt Hypokalemia - 4.1 currently - continue to monitor, replete as necessary Atrial Fib - continue pradaxa 150mg BID PO - lopressor IVP Q6 PRN - cardizem 240mg PO daily - spoke with Dr Patel, recommended starting pt on 0.25 Digoxin Daily, for elevated heart rate, and low BP - follow up digoxin level with tomorrows labs - telemetry DM - continue levemir 80 units HS - continue lispro 30 AC - ISS Pt seen, examined, assessment, plan discussed with Dr Garcia. Nitish Madrigal PGY1 <Cora Garcia - Last Filed: 04/30/18 06:46> Objective - Vital Signs/Intake and Output Vital Signs (last 24 hours): Temp Pulse Resp BP Pulse Ox 97.7 F 99 H 19 131/71 99 04/30/18 05:54 04/30/18 05:55 04/30/18 05:54 04/30/18 05:54 04/30/18 05:54 Intake and Output: 04/29/18 04/30/18 18:59 06:59 Intake Total 1660 2200 Output Total 1100 1350 Balance 560 850 - Medications Medications: Current Medications Albuterol/Ipratropium (Duoneb 3 Mg/0.5 Mg (3 Ml) Ud) 3 ml IH [id number] PRN PRN Reason: Wheezing Last Admin: 04/22/18 18:14 Dose: 3 ml Atorvastatin Calcium (Lipitor) 10 mg PO DIN [facility] Last Admin: 04/29/18 17:27 Dose: 10 mg Dabigatran (Pradaxa) 150 mg PO BID [facility] PRN Reason: Protocol Last Admin: 04/29/18 17:27 Dose: 150 mg Digoxin (Lanoxin) 0.25 mg PO 1400 [facility] Last Admin: 04/29/18 17:23 Dose: 0.25 mg Diltiazem HCl (Cardizem Cd) 240 mg PO DAILY [facility] Last Admin: 04/29/18 09:32 Dose: 240 mg Furosemide (Lasix) 40 mg PO BID [facility] Last Admin: 04/29/18 17:27 Dose: 40 mg Insulin Detemir (Levemir) 80 unit SC HS [facility] Last Admin: 04/29/18 22:53 Dose: Not Given Insulin Human Lispro (Humalog) 30 units SC AC [facility] Last Admin: 04/29/18 17:22 Dose: 30 u Insulin Human Regular (Humulin R Med) 0 units SC ACHS [facility] PRN Reason: Protocol Last Admin: 04/29/18 22:54 Dose: Not Given Metoprolol Tartrate (Lopressor) 5 mg IVP Q6 PRN PRN Reason: Heart rate Last Admin: 04/22/18 19:13 Dose: 5 mg Pantoprazole Sodium (Protonix Ec Tab) 40 mg PO 0600 [facility] Last Admin: 04/30/18 05:47 Dose: 40 mg Polyethylene Glycol (Miralax) 17 gm PO DAILY [facility] Last Admin: 04/29/18 09:38 Dose: Not Given Spironolactone (Aldactone) 50 mg PO BID [facility] Last Admin: 04/27/18 09:46 Dose: 50 mg - Labs Labs: 04/29/18 18:02 04/29/18 08:00 PT 19.4 SECONDS (9.4-12.5) H 04/22/18 09:00 INR 1.67 04/22/18 09:00 APTT 43.1 Seconds (25.1-36.5) H 04/22/18 09:00 Attending/Attestation - Attestation I have personally seen and examined this patient.: Yes I have fully participated in the care of the patient.: Yes I have reviewed all pertinent clinical information, including history, physical exam and plan: Yes Notes (Text): 04/29/18 58 year old male with past medical history of diabetes, afib, CAD, hypertension , chronic venous stasis ulcers, COPD and CKD who presented with bilateral leg cellulitis, acute on chronic CHF and Afib with RVR. Continue with iv antibiotics as per ID and wound care as per podiatry. MRI was negative for osteomyelitis. Leukocytosis has improved. Wound culture grew MRSA, klebsiella oxytocia, acinetobacter and stenotrophomonas. CHF has improved. Patient is on lasix. Aldactone was held secondary to MADELYN which has improved. He is on cardizem for afib. Will add digoxin for better rate control as per cardiology. He is on pradaxa for anticoagulation. PT follow up was appreciated. D/c planning to [facility]. Cora Garcia MD Hospitalist.
[2018-04-29 18:17] LABS: BASO # 0.06 K/mm3 (0.0-2.0); BASO % 0.6 % (0.0-3.0); EOS # 0.3 (0.0-0.7); EOS % 3.5 % (1.5-5.0); GRAN # 6.96 (1.4-6.5); GRAN % 72.1 % (50.0-68.0); LYMPH # 1.6 (1.2-3.4); LYMPH % 16.2 % (22.0-35.0); MEAN CELL VOLUME 90.2 fl (80.0-105.0); MEAN CORPUSCULAR HEMOGLOBIN 30.1 pg (25.0-35.0); MEAN CORPUSCULAR HGB CONC 33.3 g/dl (31.0-37.0); MEAN PLATELET VOLUME 8.3 fl (7.0-11.0); MONO # 0.7 (0.1-0.6); MONO % 7.6 % (1.0-6.0); RBC 3.66 10^6/uL (3.5-6.1); RED CELL DISTRIBUTION WIDTH 13.8 % (11.5-14.5); WHITE BLOOD COUNT 9.7 10^3/ul (4.5-11.0)
--- NOTE | 2018-04-29 21:20 | PN ---
DATE: 04/29/2018 SUBJECTIVE: The patient is in bed, in no acute distress, nontoxic. PHYSICAL EXAMINATION: VITAL SIGNS: Temperature is 98, blood pressure is 117/60, respiratory rate of 20, heart rate of 122. HEENT: Unremarkable. NECK: Supple. LUNGS: Have decreased breath sounds. HEART: Normal S1 and S2. ABDOMEN: Soft, nontender. LABORATORY DATA: Reveals a white count of 9.5, hemoglobin of 11, platelets of 334. BUN of 34, creatinine of 1.2. Acinetobacter baumannii, MRSA from the right foot. The left leg has Klebsiella oxytoca and Stenotrophomonas maltophilia. Blood cultures are no growth. Urine culture is gram-negative phyllis. Review of the medication reveals the patient is to be on aztreonam, which requires renewal, which I will do so. The patient is also on Zyvox. ASSESSMENT AND PLAN: This is a 58-year-old male who was seen earlier this morning in room 269, bed 2, with severe sepsis and [id number] renal failure; bilateral lower extremity cellulitis in a patient with chronic venous stasis; lymphedema; history of lower extremity cellulitis, slowly improving, growing Acinetobacter baumannii, methicillin-resistant Staphylococcus aureus, and Stenotrophomonas; chronic lower extremity edema; coronary artery disease; hypertension; atrial fibrillation; diabetes; morbid obesity with body mass index of 42. On Zyvox and Azactam, day #7. Blood cultures negative. Upon discharge, may switch to p.o. Levaquin and p.o. Zyvox to complete 7-10 days. MRI shows no osteomyelitis. Erik Alexander MD
[2018-04-29] MEDS: Insulin Detemir 100 units/ml Vial (Levemir) SC SCH (22:53)
[2018-04-29] MEDS ORDERED: Oxycodone/Acetaminophen 10/325 mg Tab PO STA (23:02)
[2018-04-30] MEDS ORDERED: Oxycodone/Acetaminophen 10/325 mg Tab PO STA (02:03)
[2018-04-30] MEDS: Pantoprazole 40 mg EC Tab PO SCH (05:47)
[2018-04-30 05:55] VITALS: O2SAT 99
[2018-04-30 08:13] LABS: BASO # 0.06 K/mm3 (0.0-2.0); BASO % 0.7 % (0.0-3.0); EOS # 0.3 (0.0-0.7); EOS % 3.5 % (1.5-5.0); GRAN # 6.36 (1.4-6.5); GRAN % 71.5 % (50.0-68.0); HEMOGLOBIN 11.7 g/dL (14.0-18.0); LYMPH # 1.6 (1.2-3.4); LYMPH % 18.2 % (22.0-35.0); MEAN CELL VOLUME 91.3 fl (80.0-105.0); MEAN CORPUSCULAR HEMOGLOBIN 30.1 pg (25.0-35.0); MEAN PLATELET VOLUME 8.3 fl (7.0-11.0); MONO # 0.5 (0.1-0.6); MONO % 6.1 % (1.0-6.0); RBC 3.89 10^6/uL (3.5-6.1); WHITE BLOOD COUNT 8.9 10^3/ul (4.5-11.0)
[2018-04-30] MEDS: Insulin Reg-MEDIUM-Coverage SC SCH ×3 (08:34→17:27)
[2018-04-30] MEDS: Insulin Lispro 1 UNITS/0.01 ML SC SCH ×3 (08:47→17:25)
[2018-04-30] MEDS: POLYETHYLENE GLYCOL 3350 17 GM/Dose PACKET PO SCH (09:27)
[2018-04-30] MEDS: diltiaZEM 240 mg/24 Hours CD Cap PO SCH (09:31)
--- NOTE | 2018-04-30 12:12 | CP.PCM.PN ---
Subjective - Date & Time of Evaluation Date of Evaluation: 04/30/18 Time of Evaluation: 12:09 - Subjective Subjective: Podiatry Progress Note for Dr. Meadows 58M seen at bedside with Dr. Meadows for b/l LE ulcerations. Patient is AAO x 3 and NAD. He denies any acute overnight events or new pedal complaints at this time. Serous strikethrough still noted to bandaging but improved over yesterday. Patient's legs are seen to be in dependent position, hanging off bed at time of visit. Denies any recent N/V/F/C/CP/SOB/D Objective - Vital Signs/Intake and Output Vital Signs (last 24 hours): Temp Pulse Resp BP Pulse Ox 97.7 F 125 H 19 104/60 99 04/30/18 05:54 04/30/18 10:00 04/30/18 05:54 04/30/18 09:31 04/30/18 05:54 Intake and Output: 04/30/18 04/30/18 06:59 18:59 Intake Total 2200 Output Total 1350 Balance 850 - Medications Medications: Current Medications Albuterol/Ipratropium (Duoneb 3 Mg/0.5 Mg (3 Ml) Ud) 3 ml IH [id number] PRN PRN Reason: Wheezing Last Admin: 04/22/18 18:14 Dose: 3 ml Atorvastatin Calcium (Lipitor) [address] [facility] Last Admin: 04/29/18 17:27 Dose: 10 mg Dabigatran (Pradaxa) [address] [facility] PRN Reason: Protocol Last Admin: 04/30/18 09:27 Dose: 150 mg Digoxin (Lanoxin) 0.[address] [facility] Last Admin: 04/29/18 17:23 Dose: 0.25 mg Diltiazem HCl (Cardizem Cd) [address] [facility] Last Admin: 04/30/18 09:31 Dose: 240 mg Furosemide (Lasix) [address] [facility] Last Admin: 04/30/18 09:27 Dose: 40 mg Insulin Detemir (Levemir) [address] [facility] Last Admin: 04/29/18 22:53 Dose: Not Given Insulin Human Lispro (Humalog) [address] [facility] Last Admin: 04/30/18 08:47 Dose: 30 u Insulin Human Regular (Humulin R Med) [address] [facility] PRN Reason: Protocol Last Admin: 04/30/18 08:34 Dose: Not Given Metoprolol Tartrate (Lopressor) 5 mg IVP Q6 PRN PRN Reason: Heart rate Last Admin: 04/22/18 19:13 Dose: 5 mg Pantoprazole Sodium (Protonix Ec Tab) [address] [facility] Last Admin: 04/30/18 05:47 Dose: 40 mg Polyethylene Glycol (Miralax) [address] [facility] Last Admin: 04/30/18 09:27 Dose: Not Given Spironolactone (Aldactone) [address] [facility] Last Admin: 04/27/18 09:46 Dose: 50 mg - Labs Labs: 04/30/18 08:00 04/29/18 08:00 PT 19.4 SECONDS (9.4-12.5) H 04/22/18 09:00 INR 1.67 04/22/18 09:00 APTT 43.1 Seconds (25.1-36.5) H 04/22/18 09:00 - Constitutional Appears: Well, Non-toxic, No Acute Distress - Extremities Exam Additional comments: LE focused exam: VASC: Nonpalpable DP and PT pulses secondary to chronic indurated edema b/l. Temperature gradient warm to warm b/l. +2 pitting edema bilaterally. NEURO: Epicritic and protective sensation grossly intact b/l. DERM: Ulceration noted to lateral aspect of right foot from 5th met base/ styloid process extending down to subcutaneous tissue - mixed fibrogranular base and maceration periwound. Serosanguinous drainage present; malodor present. No tracking present, no purulence, no fluctuance. Ulceration noted to dorsal aspect of left hallux extending down to subcutaneous tissue - mixed fibrogranular base and maceration periwound; serosanguinous drainage present; malodor present; no fluctuance; no purulence; no undermining; no tracking; no tunneling. Superficial ulceration noted to left anterior leg extending down to subcutaneous tissue - mixed fibrogranular base; serosanguinous drainage present ; malodor present; no fluctuance; no purulence; no undermining; no tracking; no tunneling Ulceration noted to lateral right leg extending down to subcutaneous tissue - mixed fibrogranular base; serosanguinous drainage present; malodor present; no fluctuance; no purulence; no undermining; no tracking; no tunneling Multiple small ulcerations to bilateral legs with malodor. Deep rubor present to bilateral lower extremities from knee joint extending distally into digits. Abrasion noted to left knee with no drainage or purulence present Severe drainage noted to b/l LE wounds ORTHO: Diffuse pain on palpation noted to bilateral LE. ROM severely limited secondary to chronic indurated edema B/L - Neurological Exam Neurological Exam: Alert, Awake, Oriented x3 - Psychiatric Exam Psychiatric exam: Normal Affect, Normal Mood Assessment and Plan - Assessment and Plan (Free Text) Assessment: 58M seen at bedside with Dr. Meadows for b/l LE ulcerations Plan: Patient seen adn evaluated at bedside with Dr. Meadows Afebrile, absent leukocytosis Continue abx per ID Wound cx R foot - Acinetobacter Baumannii, MRSA Wound cx L foot - Klebsiella Oxytoca, Stenotrophomonas Maltophilia Arterial studies: Relatively normal IGNACIO/PVR at rest LE MRI: No evidence of OM Wounds dressed with Maxorb/Medipore and Maxorb/Optifoam No plan for surgical intervention at this time Patient informed to keep legs elevated at all times Please provide patient with surgical shoes for times of ambulation- order placed Podiatry will continue to follow while patient in house
[2018-04-30 12:25] VITALS: RESP 18
[2018-04-30] MEDS ORDERED: Oxycodone/Acetaminophen 5/325 mg Tab PO PRN (13:35)
[2018-04-30] MEDS ORDERED: Oxychlorosene Topical 2 gm Packet TOP SCH (14:00)
[2018-04-30] MEDS: Digoxin 250 mcg (0.25 mg) Tab PO SCH (14:45)
[2018-04-30 14:55] VITALS: PULSE 75
[2018-04-30] MEDS: Oxychlorosene Topical 2 gm Packet TOP SCH ×3 (15:15→20:19)
--- NOTE | 2018-04-30 15:53 | CP.PCM.PN ---
Subjective - Date & Time of Evaluation Date of Evaluation: 04/30/18 Time of Evaluation: 10:10 - Subjective Subjective: Still having pain in the legs and feet but feeling a little better, no fevers, no nausea, no diarrhea. Objective - Vital Signs/Intake and Output Vital Signs (last 24 hours): Temp Pulse Resp BP Pulse Ox 97.7 F 99 H 19 131/71 99 04/30/18 05:54 04/30/18 05:55 04/30/18 05:54 04/30/18 05:54 04/30/18 05:54 Intake and Output: 04/30/18 04/30/18 06:59 18:59 Intake Total 2200 Output Total 1350 Balance 850 - Medications Medications: Current Medications Albuterol/Ipratropium (Duoneb 3 Mg/0.5 Mg (3 Ml) Ud) 3 ml IH [id number] PRN PRN Reason: Wheezing Last Admin: 04/22/18 18:14 Dose: 3 ml Atorvastatin Calcium (Lipitor) 10 mg PO DIN [facility] Last Admin: 04/29/18 17:27 Dose: 10 mg Dabigatran (Pradaxa) 150 mg PO BID [facility] PRN Reason: Protocol Last Admin: 04/29/18 17:27 Dose: 150 mg Digoxin (Lanoxin) 0.25 mg PO 1400 [facility] Last Admin: 04/29/18 17:23 Dose: 0.25 mg Diltiazem HCl (Cardizem Cd) 240 mg PO DAILY [facility] Last Admin: 04/29/18 09:32 Dose: 240 mg Furosemide (Lasix) 40 mg PO BID [facility] Last Admin: 04/29/18 17:27 Dose: 40 mg Insulin Detemir (Levemir) 80 unit SC HS [facility] Last Admin: 04/29/18 22:53 Dose: Not Given Insulin Human Lispro (Humalog) 30 units SC AC [facility] Last Admin: 04/29/18 17:22 Dose: 30 u Insulin Human Regular (Humulin R Med) 0 units SC ACHS [facility] PRN Reason: Protocol Last Admin: 04/29/18 22:54 Dose: Not Given Metoprolol Tartrate (Lopressor) 5 mg IVP Q6 PRN PRN Reason: Heart rate Last Admin: 04/22/18 19:13 Dose: 5 mg Pantoprazole Sodium (Protonix Ec Tab) 40 mg PO 0600 [facility] Last Admin: 04/30/18 05:47 Dose: 40 mg Polyethylene Glycol (Miralax) 17 gm PO DAILY [facility] Last Admin: 04/29/18 09:38 Dose: Not Given Spironolactone (Aldactone) 50 mg PO BID [facility] Last Admin: 04/27/18 09:46 Dose: 50 mg - Labs Labs: 04/29/18 18:02 04/29/18 08:00 PT 19.4 SECONDS (9.4-12.5) H 04/22/18 09:00 INR 1.67 04/22/18 09:00 APTT 43.1 Seconds (25.1-36.5) H 04/22/18 09:00 - Constitutional Appears: Chronically Ill - Head Exam Head Exam: NORMAL INSPECTION - Respiratory Exam Respiratory Exam: Decreased Breath Sounds - Cardiovascular Exam Cardiovascular Exam: +S1, +S2 - GI/Abdominal Exam GI & Abdominal Exam: Soft. absent: Tenderness - Extremities Exam Additional comments: both lower extremities with dressings in place Assessment and Plan - Assessment and Plan (Free Text) Plan: Assessment severe sepsis with acute on chronic renal failure due to bilateral lower extremity cellulitis in this patient with chronic venous stasis and lymphedema and history of lower extremity cellulitis, slowly improving - growing Acinetobacter, MRSA and Stenotrophomonas chronic lower extremity edema CAD HTN atrial fibrillation DM JOSELINE morbid obesity with BMI 42 Plan continue Zyvox and Azactam day 8 (Was given Vancomycin and Zosyn in the ED); blood cx are negative; can be switched to PO Levaquin and PO Zyvox to complete the 7-10 days of therapy with outpatient follow up with Podiatry for continued wound care MRI of the legs and feet do not show osteomyelitis discussed with Dr. Garcia previously
[2018-04-30 17:30] VITALS: BP 135/80
[2018-04-30 18:02] VITALS: TEMP 98
[2018-04-30 19:38] LABS: BASO # 0.06 K/mm3 (0.0-2.0); BASO % 0.6 % (0.0-3.0); EOS # 0.3 (0.0-0.7); EOS % 2.5 % (1.5-5.0); GRAN # 7.93 (1.4-6.5); GRAN % 76.3 % (50.0-68.0); HEMOGLOBIN 11.5 g/dL (14.0-18.0); LYMPH # 1.3 (1.2-3.4); LYMPH % 12.5 % (22.0-35.0); MEAN CELL VOLUME 90.8 fl (80.0-105.0); MEAN CORPUSCULAR HEMOGLOBIN 30.2 pg (25.0-35.0); MEAN CORPUSCULAR HGB CONC 33.2 g/dl (31.0-37.0); MEAN PLATELET VOLUME 8.2 fl (7.0-11.0); MONO # 0.8 (0.1-0.6); MONO % 8.1 % (1.0-6.0); RBC 3.81 10^6/uL (3.5-6.1); WHITE BLOOD COUNT 10.4 10^3/ul (4.5-11.0)
--- NOTE | 2018-04-30 20:02 | PN ---
DATE: 04/30/2018 FOLLOWUP SUBJECTIVE: The patient is experiencing bilateral leg pain. He is in AFib that becomes faster when he is physically active, but at the time of my evaluation, the patient's heart rate was in the 80s and 90s on the monitor. PHYSICAL EXAMINATION VITAL SIGNS: Blood pressure 129/60, heart rate 75, temperature 98.6, and respirations 18. HEENT: Normocephalic. CHEST: Bilateral rhonchi. HEART: S1 and S2, regular. ABDOMEN: Soft. EXTREMITIES: Bilateral leg and foot cellulitis. LABORATORY DATA: Hemoglobin and hematocrit 11.7 and 35.5. White count and platelet count are within normal limits. SMA-7: Sodium 136, potassium 4.1, chloride 97, CO2 of 30. Glucose 142. BUN 34, creatinine of 1.2. ASSESSMENT: 1. Chronic atrial fibrillation. 2. Bilateral leg and foot cellulitis. 3. Uncontrolled diabetes mellitus. 4. Severe pulmonary hypertension. 5. Chronic renal insufficiency. 6. Noncompliance. The patient takes some of his home medications without authorization of the hospital and he tested positive for benzodiazepines in the urine toxicology which is not listed as one of his medications. RECOMMENDATIONS: Continue Cardizem CD 240 mg once a day, digoxin 0.25 mg orally once a day, Lasix 40 mg p.o. once a day, Lipitor 10 mg once a day, Lopressor will be changed to 50 mg p.o. twice a day. Continue Pradaxa 150 mg twice a day. Kendell Patel MD
[2018-04-30 20:19] VITALS: PULSE 104
--- NOTE | 2018-04-30 20:41 | CP.PCM.DIS ---
<RohanNitish - Last Filed: 04/30/18 20:42> Provider - Provider Date of Admission: 04/22/18 12:14 Attending physician: Cora Garcia MD Primary care physician: Matthew Leiva JD, MD Consults: podiatry ID Time Spent in preparation of Discharge (in minutes): 45 Diagnosis - Discharge Diagnosis (1) Cellulitis Status: Acute Priority: High (2) CHF (congestive heart failure) Status: Chronic Priority: High (3) Atrial fibrillation Status: Chronic Priority: High (4) Diabetes Status: Chronic Priority: High (5) Diabetes Status: Chronic Priority: Medium (6) Hypokalemia Status: Acute Priority: Medium Hospital Course - Lab Results Lab Results: Micro Results 04/23/18 21:16 Leg - Left Gram Stain - Final 04/23/18 21:16 Leg - Left Wound Culture - Final Klebsiella Oxytoca Stenotrophomonas Maltophilia 04/23/18 21:15 Foot - Left Gram Stain - Final 04/23/18 21:15 Foot - Left Wound Culture - Final Stenotrophomonas Maltophilia 04/23/18 21:17 Foot - Right Gram Stain - Final 04/23/18 21:17 Foot - Right Wound Culture - Final Acinetobacter Baumannii Methicillin Resistant S Aureus Most Recent Lab Values WBC 10.4 10^3/ul (4.5-11.0) 04/30/18 19:27 RBC 3.81 10^6/uL (3.5-6.1) 04/30/18 19:27 Hgb 11.5 g/dL (14.0-18.0) L 04/30/18 19:27 Hct 34.6 % (42.0-52.0) L 04/30/18 19:27 MCV 90.8 fl (80.0-105.0) 04/30/18 19:27 MCH 30.2 pg (25.0-35.0) 04/30/18 19:27 MCHC 33.2 g/dl (31.0-37.0) 04/30/18 19:27 RDW 14.0 % (11.5-14.5) 04/30/18 19:27 Plt Count 326 10^3/uL (120.0-450.0) 04/30/18 19:27 MPV 8.2 fl (7.0-11.0) 04/30/18 19: Gran % 76.3 % (50.0-68.0) H 04/30/18 19:27 Lymph % (Auto) 12.5 % (22.0-35.0) L 04/30/18 19:27 Trigg % (Auto) 8.1 % (1.0-6.0) H 04/30/18 19:27 Eos % (Auto) 2.5 % (1.5-5.0) 04/30/18 19: Baso % (Auto) 0.6 % (0.0-3.0) 04/30/18 19: Gran # 7.93 (1.4-6.5) H 04/30/18 19: Lymph # (Auto) 1.3 (1.2-3.4) 04/30/18 19: Trigg # (Auto) 0.8 (0.1-0.6) H 04/30/18 19: Eos # (Auto) 0.3 (0.0-0.7) 04/30/18 19: Baso # (Auto) 0.06 K/mm3 (0.0-2.0) 04/30/18 19: Neutrophils % (Manual) 87 % (50.0-70.0) H 04/22/18 09:00 Band Neutrophils % 2 % (0-2) 04/22/18 09:00 Lymphocytes % (Manual) 2 % (22.0-35.0) L 04/22/18 09:00 Monocytes % (Manual) 7 % (1.0-6.0) H 04/22/18 09:00 Eosinophils % (Manual) 2 % (0.0-3.0) 04/22/18 09:00 Platelet Evaluation Normal (NORMAL) 04/22/18 09:00 PT 19.4 SECONDS (9.4-12.5) H 04/22/18 09:00 INR 1.67 04/22/18 09:00 APTT 43.1 Seconds (25.1-36.5) H 04/22/18 09:00 pCO2 37 mm/Hg (35-45) 04/28/18 16:50 pO2 115.0 mm/Hg (80-100) H 04/28/18 16:50 HCO3 24.6 mmol/L (21-28) 04/28/18 16:50 ABG pH 7.43 (7.35-7.45) 04/28/18 16:50 ABG Total CO2 25.7 mmol.L (22-28) 04/28/18 16:50 ABG O2 Saturation 99.4 % (95-98) H 04/28/18 16:50 ABG O2 Content 15.9 ML/dl (15-23) 04/28/18 16:50 ABG Base Excess 0.4 mmol/L (-2.0-3.0) 04/28/18 16:50 ABG Hemoglobin 11.5 g/dL (11.7-17.4) L 04/28/18 16:50 ABG Carboxyhemoglobin 1.7 % (0.5-1.5) H 04/28/18 16:50 POC ABG HHb (Measured) 0.6 % (0-5) 04/28/18 16:50 ABG Methemoglobin 0.7 % (0.0-3.0) 04/28/18 16:50 ABG O2 Capacity 16.0 mL/dl (16-24) 04/28/18 16:50 VBG pH 7.30 (7.32-7.43) L 04/22/18 14:00 VBG pCO2 48.0 (40-60) 04/22/18 14:00 VBG HCO3 23.6 mmol/l (21-28) 04/22/18 14:00 VBG Total CO2 25.1 mmol.L (22-28) 04/22/18 14:00 VBG O2 Sat (Calc) 40.6 % (40-65) 04/22/18 14:00 VBG Base Excess -3.2 mmol/L (0.0-2.0) L 04/22/18 14:00 VBG Potassium 5.5 mmol/L (3.6-5.2) H 04/22/18 14:00 Hgb O2 Saturation 97.0 % (95.0-98.0) 04/28/18 16:50 Sodium 128.0 mmol/L (132-148) L 04/22/18 14:00 Chloride 94.0 mmol/L (98-107) L 04/22/18 14:00 Glucose 281 mg/dl (75-110) H 04/22/18 14:00 Lactate 2.8 mmol/L (0.7-2.1) H 04/22/18 14:00 FiO2 32.0 % 04/28/18 16:50 Sodium 136 mmol/L (132-148) 04/29/18 08:00 Potassium 4.1 mmol/L (3.6-5.0) 04/29/18 08:00 Chloride 97 mmol/L (98-107) L 04/29/18 08:00 Carbon Dioxide 30 mmol/L (21-33) 04/29/18 08:00 Anion Gap 13 (10-20) 04/29/18 08:00 BUN 34 mg/dL (7-21) H 04/29/18 08:00 Creatinine 1.2 mg/dl (0.8-1.5) 04/29/18 08:00 Est GFR ( Amer) > 60 04/29/18 08:00 Est GFR (Non-Af Amer) > 60 04/29/18 08:00 POC Glucose (mg/dL) 168 mg/dL (65-110) H 04/30/18 11:14 Random Glucose 142 mg/dL (70-110) H 04/29/18 08:00 Calcium 9.4 mg/dL (8.4-10.5) 04/29/18 08:00 Magnesium 1.7 mg/dL (1.7-2.2) 04/22/18 09:00 Total Bilirubin 0.4 mg/dL (0.2-1.3) 04/28/18 05:00 AST 42 U/L (17-59) 04/28/18 05:00 ALT 33 U/L (7-56) 04/28/18 05:00 Alkaline Phosphatase 84 U/L (38-126) 04/28/18 05:00 Lactate Dehydrogenase 784 U/L (333-699) H 04/22/18 09:00 Total Creatine Kinase 79 U/L (35-230) 04/22/18 09:00 Troponin I < 0.01 ng/mL 04/22/18 09:00 C-Reactive Protein 336.60 mg/L (0.0-9.9) H 04/22/18 18:30 NT-Pro-B Natriuret Pep 4330 pg/mL (0-450) H 04/22/18 09:00 Total Protein 7.5 g/dL (5.8-8.3) 04/28/18 05:00 Albumin 3.6 g/dL (3.0-4.8) 04/28/18 05:00 Globulin 3.9 gm/dL 04/28/18 05:00 Albumin/Globulin Ratio 0.9 (1.1-1.8) L 04/28/18 05:00 Procalcitonin 4.44 NG/ML (0.19-0.49) H 04/22/18 18:30 Venous Blood Potassium 5.5 mmol/L (3.6-5.2) H 04/22/18 14:00 Urine Color Yellow (YELLOW) 04/22/18 09:00 Urine Appearance Clear (CLEAR) 04/22/18 09:00 Urine pH 6.0 (4.7-8.0) 04/22/18 09:00 Ur Specific Pledger 1.025 (1.005-1.035) 04/22/18 09:00 Urine Protein 30 mg/dL (<30 mg/dL) H 04/22/18 09:00 Urine Glucose (UA) 250 mg/dL (NEGATIVE) H 04/22/18 09:00 Urine Ketones Trace mg/dL (NEGATIVE) H 04/22/18 09:00 Urine Blood Trace-lysed (NEGATIVE) H 04/22/18 09:00 Urine Nitrate Negative (NEGATIVE) 04/22/18 09:00 Urine Bilirubin Negative (NEGATIVE) 04/22/18 09:00 Urine Urobilinogen 1.0 E.U./dL (<1 E.U./dL) H 04/22/18 09:00 Ur Leukocyte Esterase Negative Sujata/uL (NEGATIVE) 04/22/18 09:00 Urine RBC 2 - 5 /hpf (0-2) 04/22/18 09:00 Urine WBC 0 - 2 /hpf (0-6) 04/22/18 09:00 Ur Epithelial Cells 0 - 2 /hpf (0-5) 04/22/18 09:00 Amorphous Sediment Small 04/22/18 09:00 Urine Bacteria Many (NEG) 04/22/18 09:00 Coarse Granular Casts Trace /hpf (0-2) H 09/04/18 09:00 Urine Other Uyeast 04/22/18 09:00 Digoxin < 0.4 ng/mL (0.8-2.0) L 04/30/18 08:00 Urine Opiates Screen Positive (NEGATIVE) H 04/28/18 19:00 Urine Methadone Screen Negative (NEGATIVE) 04/28/18 19:00 Ur Barbiturates Screen Negative (NEGATIVE) 04/28/18 19:00 Ur Phencyclidine Scrn Negative (NEGATIVE) 04/28/18 19:00 Ur Amphetamines Screen Negative (NEGATIVE) 04/28/18 19:00 U Benzodiazepines Scrn Positive (NEGATIVE) H 04/28/18 19:00 U Oth Cocaine Metabols Negative (NEGATIVE) 04/28/18 19:00 U Cannabinoids Screen Negative (NEGATIVE) 04/28/18 19:00 Blood Type A POSITIVE 04/22/18 09:00 Antibody Screen Negative 04/22/18 09:00 BBK History Checked Patient has bt 04/22/18 09:00 - Hospital Course Hospital Course: Pt is a 58 yo male with a PMH of DM, atrial fibrillation with RVR (taking pradaxa), CAD, HTN, venous stasis ulcers, COPD, and obstructive sleep apnea who presented after a mechanical fall while walking on the street on his way to his podiatry appointment. [place] [facility] [place] Pt reports that he has been "sitting around watching TV" since he was discharged. He reported using wound care cream on his feet. He stated the pain is 10/10, with no specific character, and non-radiating. Pt has no tried anything at home to help relieve the pain, nothing in particular made it worse. He denied excessive walking recently. Pt was found to have BL LE cellulits and was treated with zyvox and azactam. Pt was also treated for CHF, atrial fib, and DM during this admission. Pt was sent to subacute rehab directly from the hospital. Pt was sent with IV zyvox and PO levaquin. Pt advised to return to the nearest ED if his symptoms return or worsen. - Date & Time of H&P Date of H&P: 04/30/18 Time of H&P: 07:00 Discharge Exam - Head Exam Head Exam: NORMAL INSPECTION - ENT Exam ENT Exam: Mucous Membranes Moist - Respiratory Exam Respiratory Exam: NORMAL BREATHING PATTERN, UNREMARKABLE - Cardiovascular Exam Cardiovascular Exam: Irregular Rhythm. absent: Diastolic murmur - GI/Abdominal Exam GI & Abdominal Exam: Unremarkable - Neurological Exam Neurological exam: Alert, Oriented x3 - Psychiatric Exam Psychiatric exam: Normal Affect, Normal Mood - Skin Additional comments: BL LE cellulits present Discharge Plan - Discharge Medications Prescriptions: Levofloxacin [Levaquin] 500 mg PO DAILY 3 Days tablet Linezolid [Zyvox] 600 mg PO Q12 #14 tab Metoprolol Tartrate 25 mg PO BID #60 tablet - Follow Up Plan Condition: SERIOUS Disposition: TRANSF TO SNF Instructions: Heart Healthy Diet, Quitting Smoking for Older Adults, Preventing Falls in the Older Adult, Atrial Fibrillation (DC), MRSA (DC), Cellulitis (DC), Cellulitis (GEN) Additional Instructions: 1. Follow up with your primary care within 3-5 days at your [facility]. 2. Please continue to take home medications 3. Please continue new medications as prescribed to you 4. Please continue wound care Referrals: Matthew Leiva JD, MD [Primary Care Provider] - <Cora Garcia - Last Filed: 05/01/18 08:43> Provider - Provider Date of Admission: 04/22/18 12:14 Attending physician: Cora Garcia MD Primary care physician: Matthew Leiva JD, MD Hospital Course - Lab Results Lab Results: Micro Results 04/23/18 21:16 Leg - Left Gram Stain - Final 04/23/18 21:16 Leg - Left Wound Culture - Final Klebsiella Oxytoca Stenotrophomonas Maltophilia 04/23/18 21:15 Foot - Left Gram Stain - Final 04/23/18 21:15 Foot - Left Wound Culture - Final Stenotrophomonas Maltophilia 04/23/18 21:17 Foot - Right Gram Stain - Final 04/23/18 21:17 Foot - Right Wound Culture - Final Acinetobacter Baumannii Methicillin Resistant S Aureus Most Recent Lab Values WBC 10.4 10^3/ul (4.5-11.0) 04/30/18 19:27 RBC 3.81 10^6/uL (3.5-6.1) 04/30/18 19:27 Hgb 11.5 g/dL (14.0-18.0) L 04/30/18 19:27 Hct 34.6 % (42.0-52.0) L 04/30/18 19:27 MCV 90.8 fl (80.0-105.0) 04/30/18: MCH 30.2 pg (25.0-35.0) 04/30/18 MCHC 33.2 g/dl (31.0-37.0) 04/30/18 RDW 14.0 % (11.5-14.5) 04/30/18 Plt Count 326 10^3/uL (120.0-450.0) 04/30/18 MPV 8.2 fl (7.0-11.0) 04/30/18: Gran % 76.3 % (50.0-68.0) H 04/30/18: Lymph % (Auto) 12.5 % (22.0-35.0) L 04/30/18 Trigg % (Auto) 8.1 % (1.0-6.0) H 04/30/18: Eos % (Auto) 2.5 % (1.5-5.0) 04/30/18 Baso % (Auto) 0.6 % (0.0-3.0) 04/30/18 Gran # 7.93 (1.4-6.5) H 04/30/18 Lymph # (Auto) 1.3 (1.2-3.4) 04/30/18 Trigg # (Auto) 0.8 (0.1-0.6) H 04/30/18 Eos # (Auto) 0.3 (0.0-0.7) 04/30/18 Baso # (Auto) 0.06 K/mm3 (0.0-2.0) 04/30/18 Neutrophils % (Manual) 87 % (50.0-70.0) H 04/22/18 09:00 Band Neutrophils % 2 % (0-2) 04/22/18 09:00 Lymphocytes % (Manual) 2 % (22.0-35.0) L 04/22/18 09:00 Monocytes % (Manual) 7 % (1.0-6.0) H 04/22/18 09:00 Eosinophils % (Manual) 2 % (0.0-3.0) 04/22/18 09:00 Platelet Evaluation Normal (NORMAL) 04/22/18 09:00 PT 19.4 SECONDS (9.4-12.5) H 04/22/18 09:00 INR 1.67 04/22/18 09:00 APTT 43.1 Seconds (25.1-36.5) H 04/22/18 09:00 pCO2 37 mm/Hg (35-45) 04/28/18 16:50 pO2 115.0 mm/Hg (80-100) H 04/28/18 16:50 HCO3 24.6 mmol/L (21-28) 04/28/18 16:50 ABG pH 7.43 (7.35-7.45) 04/28/18 16:50 ABG Total CO2 25.7 mmol.L (22-28) 04/28/18 16:50 ABG O2 Saturation 99.4 % (95-98) H 04/28/18 16:50 ABG O2 Content 15.9 ML/dl (15-23) 04/28/18 16:50 ABG Base Excess 0.4 mmol/L (-2.0-3.0) 04/28/18 16:50 ABG Hemoglobin 11.5 g/dL (11.7-17.4) L 04/28/18 16:50 ABG Carboxyhemoglobin 1.7 % (0.5-1.5) H 04/28/18 16:50 POC ABG HHb (Measured) 0.6 % (0-5) 04/28/18 16:50 ABG Methemoglobin 0.7 % (0.0-3.0) 04/28/18 16:50 ABG O2 Capacity 16.0 mL/dl (16-24) 04/28/18 16:50 VBG pH 7.30 (7.32-7.43) L 04/22/18 14:00 VBG pCO2 48.0 (40-60) 04/22/18 14:00 VBG HCO3 23.6 mmol/l (21-28) 04/22/18 14:00 VBG Total CO2 25.1 mmol.L (22-28) 04/22/18 14:00 VBG O2 Sat (Calc) 40.6 % (40-65) 04/22/18 14:00 VBG Base Excess -3.2 mmol/L (0.0-2.0) L 04/22/18 14:00 VBG Potassium 5.5 mmol/L (3.6-5.2) H 04/22/18 14:00 Hgb O2 Saturation 97.0 % (95.0-98.0) 04/28/18 16:50 Sodium 128.0 mmol/L (132-148) L 04/22/18 14:00 Chloride 94.0 mmol/L (98-107) L 04/22/18 14:00 Glucose 281 mg/dl (75-110) H 04/22/18 14:00 Lactate 2.8 mmol/L (0.7-2.1) H 04/22/18 14:00 FiO2 32.0 % 04/28/18 16:50 Sodium 136 mmol/L (132-148) 04/29/18 08:00 Potassium 4.1 mmol/L (3.6-5.0) 04/29/18 08:00 Chloride 97 mmol/L (98-107) L 04/29/18 08:00 Carbon Dioxide 30 mmol/L (21-33) 04/29/18 08:00 Anion Gap 13 (10-20) 04/29/18 08:00 BUN 34 mg/dL (7-21) H 04/29/18 08:00 Creatinine 1.2 mg/dl (0.8-1.5) 04/29/18 08:00 Est GFR ( Amer) > 60 04/29/18 08:00 Est GFR (Non-Af Amer) > 60 04/29/18 08:00 POC Glucose (mg/dL) 97 mg/dL (65-110) 04/30/18 16:07 Random Glucose 142 mg/dL (70-110) H 04/29/18 08:00 Calcium 9.4 mg/dL (8.4-10.5) 04/29/18 08:00 Magnesium 1.7 mg/dL (1.7-2.2) 04/22/18 09:00 Total Bilirubin 0.4 mg/dL (0.2-1.3) 04/28/18 05:00 AST 42 U/L (17-59) 04/28/18 05:00 ALT 33 U/L (7-56) 04/28/18 05:00 Alkaline Phosphatase 84 U/L (38-126) 04/28/18 05:00 Lactate Dehydrogenase 784 U/L (333-699) H 04/22/18 09:00 Total Creatine Kinase 79 U/L (35-230) 04/22/18 09:00 Troponin I < 0.01 ng/mL 04/22/18 09:00 C-Reactive Protein 336.60 mg/L (0.0-9.9) H 04/22/18 18:30 NT-Pro-B Natriuret Pep 4330 pg/mL (0-450) H 04/22/18 09:00 Total Protein 7.5 g/dL (5.8-8.3) 04/28/18 05:00 Albumin 3.6 g/dL (3.0-4.8) 04/28/18 05:00 Globulin 3.9 gm/dL 04/28/18 05:00 Albumin/Globulin Ratio 0.9 (1.1-1.8) L 04/28/18 05:00 Procalcitonin 4.44 NG/ML (0.19-0.49) H 04/22/18 18:30 Venous Blood Potassium 5.5 mmol/L (3.6-5.2) H 04/22/18 14:00 Urine Color Yellow (YELLOW) 04/22/18 09:00 Urine Appearance Clear (CLEAR) 04/22/18 09:00 Urine pH 6.0 (4.7-8.0) 04/22/18 09:00 Ur Specific Pledger 1.025 (1.005-1.035) 04/22/18 09:00 Urine Protein 30 mg/dL (<30 mg/dL) H 04/22/18 09:00 Urine Glucose (UA) 250 mg/dL (NEGATIVE) H 04/22/18 09:00 Urine Ketones Trace mg/dL (NEGATIVE) H 04/22/18 09:00 Urine Blood Trace-lysed (NEGATIVE) H 04/22/18 09:00 Urine Nitrate Negative (NEGATIVE) 04/22/18 09:00 Urine Bilirubin Negative (NEGATIVE) 04/22/18 09:00 Urine Urobilinogen 1.0 E.U./dL (<1 E.U./dL) H 04/22/18 09:00 Ur Leukocyte Esterase Negative Sujata/uL (NEGATIVE) 04/22/18 09:00 Urine RBC 2 - 5 /hpf (0-2) 04/22/18 09:00 Urine WBC 0 - 2 /hpf (0-6) 04/22/18 09:00 Ur Epithelial Cells 0 - 2 /hpf (0-5) 04/22/18 09:00 Amorphous Sediment Small 04/22/18 09:00 Urine Bacteria Many (NEG) 04/22/18 09:00 Coarse Granular Casts Trace /hpf (0-2) H 04/22/18 09:00 Urine Other Uyeast 04/22/18 09:00 Digoxin < 0.4 ng/mL (0.8-2.0) L 04/30/18 08:00 Urine Opiates Screen Positive (NEGATIVE) H 04/28/18 19:00 Urine Methadone Screen Negative (NEGATIVE) 04/28/18 19:00 Ur Barbiturates Screen Negative (NEGATIVE) 04/28/18 19:00 Ur Phencyclidine Scrn Negative (NEGATIVE) 04/28/18 19:00 Ur Amphetamines Screen Negative (NEGATIVE) 04/28/18 19:00 U Benzodiazepines Scrn Positive (NEGATIVE) H 04/28/18 19:00 U Oth Cocaine Metabols Negative (NEGATIVE) 04/28/18 19:00 U Cannabinoids Screen Negative (NEGATIVE) 04/28/18 19:00 Blood Type A POSITIVE 04/22/18 09:00 Antibody Screen Negative 04/22/18 09:00 BBK History Checked Patient has bt 04/22/18 09:00 Attending/Attestation - Attestation I have personally seen and examined this patient.: Yes I have fully participated in the care of the patient.: Yes I have reviewed all pertinent clinical information, including history, physical exam and plan: Yes Notes (Text): 04/30/18 58 year old male with past medical history of diabetes, afib, CAD, hypertension , chronic venous stasis ulcers, COPD and CKD who presented with bilateral leg cellulitis, acute on chronic CHF and Afib with RVR. He was started on iv antibiotics as per ID and received wound care with podiatry. MRI was negative for osteomyelitis. Wound culture grew MRSA, klebsiella oxytocia, acinetobacter and stenotrophomonas. Cellulitis and leukocytosis has improved. CHF and Afib also improved. Patient is on lasix. Aldactone was initially held secondary to MADELYN which has improved. Can be resumed with lower dose 25 mg bid. He is also started on digoxin and metoprolol in addition to his cardizem for better heart rate control as per cardiology. He is on pradaxa for anticoagulation. Patient is transferred to [facility]. Continue with wound care. Continue with antibiotics. Follow up with pmd. Follow up with podiatry. Counselled on risks of substance and narcotic abuse. Cora Garcia MD Hospitalist.
== END 2018-04-30 22:23 | DRG 584 ==
LOC: ED 08:14 → ERH 12:14 → 2RNO 16:42
PROVIDERS: ADMIT Internal Medicine; ATTEND Internal Medicine
DX: A41.9 Sepsis, unspecified organism (principal); I50.33 Acute on chronic diastolic (congestive) heart failure; L03.115 Cellulitis of right lower limb; E11.22 Type 2 diabetes mellitus with diabetic chronic kidney disease; E11.621 Type 2 diabetes mellitus with foot ulcer; E11.622 Type 2 diabetes mellitus with other skin ulcer; E11.65 Type 2 diabetes mellitus with hyperglycemia; E87.1 Hypo-osmolality and hyponatremia; E87.6 Hypokalemia; I13.0 Hypertensive heart and chronic kidney disease with heart failure and stage 1 through stage 4 chronic kidney disease, or unspecified chronic kidney disease; N18.3 Chronic kidney disease, stage 3 (moderate); I50.82 Biventricular heart failure; J44.9 Chronic obstructive pulmonary disease, unspecified; L97.919 Non-pressure chronic ulcer of unspecified part of right lower leg with unspecified severity; L97.929 Non-pressure chronic ulcer of unspecified part of left lower leg with unspecified severity; R09.02 Hypoxemia; L97.509 Non-pressure chronic ulcer of other part of unspecified foot with unspecified severity; L03.116 Cellulitis of left lower limb; R65.20 Severe sepsis without septic shock; I48.2 Chronic atrial fibrillation; E66.01 Morbid (severe) obesity due to excess calories; F10.10 Alcohol abuse, uncomplicated; F17.200 Nicotine dependence, unspecified, uncomplicated; G47.33 Obstructive sleep apnea (adult) (pediatric); I25.10 Atherosclerotic heart disease of native coronary artery without angina pectoris; I27.29 Other secondary pulmonary hypertension; I27.81 Cor pulmonale (chronic); I83.019 Varicose veins of right lower extremity with ulcer of unspecified site; I83.029 Varicose veins of left lower extremity with ulcer of unspecified site; I87.2 Venous insufficiency (chronic) (peripheral); I87.8 Other specified disorders of veins; I89.0 Lymphedema, not elsewhere classified; K21.9 Gastro-esophageal reflux disease without esophagitis; W01.0XXA Fall on same level from slipping, tripping and stumbling without subsequent striking against object, initial encounter; Y93.01 Activity, walking, marching and hiking; Z68.41 Body mass index [BMI] 40.0-44.9, adult; Z79.01 Long term (current) use of anticoagulants; Z79.02 Long term (current) use of antithrombotics/antiplatelets; Z90.49 Acquired absence of other specified parts of digestive tract; Z91.19 Patient's noncompliance with other medical treatment and regimen; Z95.5 Presence of coronary angioplasty implant and graft

== ENCOUNTER 2018-06-23 15:19 | Emergency (ER) | payer OTHER ==
[2018-06-23 15:20] VITALS: PULSE 75
[2018-06-23 15:22] VITALS: BMI 42.0
[2018-06-23 16:44] VITALS: O2SAT 100
--- NOTE | 2018-06-23 16:54 | ED PDOC ---
Arrival/HPI - General Chief Complaint: Medical Clearance Time Seen by Provider: 06/23/18 15:30 Historian: Patient - History of Present Illness Narrative History of Present Illness (Text): 06/23/18 16:54 58 year old male whose past medical history includes A-fib, CHF, diabetes and cellulitis who presents to the Emergency department s/p visit with Dr. Meadows who noticed patient was hypotensive and taccychardic earlier today. Patient notes he was aggravated during his visit with the doctor. He reports he has ulcers in both of his legs, along with edema in his lower extremities, he requires a walker to ambulate. He was recently placed on Lyrica. Patient denies fevers, chills, headache, dizziness, chest pain, shortness of breath, dyspnea on exertion, cough, abdominal pain, nausea, vomiting, diarrhea, back pain, neck pain, or any other complaint. PMD: Dr. Leiva Commercial Designer: Dr. Meadows Time/Duration: Prior to Arrival Symptom Course: Unchanged Activities at Onset: Light Context: Other (Physicians office) Past Medical History - Provider Review Nursing Documentation Reviewed: Yes - Infectious Disease Hx of Infectious Diseases: None - Tetanus Immunization Tetanus Immunization: Unknown - Cardiac Hx Cardiac Disorders: Yes (Afib, CAD) Hx Cardiac Arrhythmia: Yes (afib) Hx Peripheral Edema: Yes (+2 pitting ble) Other/Comment: chronic venous insufficiency - Pulmonary Other/Comment: had the sleep study pt thinks they told him he had sleep apnea went to follow up with appt but "there ws no one there, the place was gone." pt stated. Couldn't remember the name of the place - Neurological Hx Neurological Disorder: Yes Other/Comment: tremors - HEENT Hx HEENT Disorder: Yes Other/Comment: glasses - Renal Hx Renal Disorder: Yes Hx Renal Failure: Yes (ARF 11/2014) Other/Comment: acute hemodialysis 11/2016, hd cath implanted by dr martin 12/12/2014 to r jugular for acute hd - Endocrine/Metabolic Hx Diabetes Mellitus Type 2: Yes - Hematological/Oncological Hx Blood Disorders: No - Integumentary Hx Dermatological Disorder: No Other/Comment: cellulitis on sudhir lower ext. Chronic venous insufficiency (previous triage) - Musculoskeletal/Rheumatological Hx Musculoskeletal Disorders: Yes (chronic ble leg pain) Hx Unsteady Gait: Yes (walker) - Gastrointestinal Hx Gastrointestinal Disorders: Yes (obese, hiatal hernia) Other/Comment: scheduled for endo 05/26/18 - Genitourinary/Gynecological Hx Genitourinary Disorders: No - Psychiatric Hx Psychophysiologic Disorder: Yes Hx Anxiety: Yes Hx Substance Use: No - Surgical History Other/Comment: multiple leg sx's including skin grafts done by various dr's, [facility] linus insertion kate 06/2015 and to maria guadalupe 09/25/16 - Anesthesia Hx Anesthesia: Yes Hx Anesthesia Reactions: No Hx Malignant Hyperthermia: No - Suicidal Assessment Feels Threatened In Home Enviroment: No Family/Social History - Physician Review Nursing Documentation Reviewed: Yes Family/Social History: Unknown Family HX Smoking Status: Former Smoker Hx Alcohol Use: No (Pt stopped drinking.) Hx Substance Use: No Hx Substance Use Treatment: No Allergies/Home Meds Allergies/Adverse Reactions: Allergies meropenem [From Merrem] Adverse Reaction (Verified 04/22/18 08:31) PAIN Home Medications: Home Meds Medication Instructions Recorded Confirmed Albuterol HFA [Ventolin HFA 90 1 puff IH BID PRN 09/17/16 04/22/18 mcg/actuation (8 g)] Furosemide [Lasix] 1 tab PO BID 09/17/16 04/22/18 Oxycodone HCl/Acetaminophen 1 tab PO Q4H PRN 09/17/16 04/22/18 [Percocet 10-325 mg Tablet] metOLazone [Zaroxolyn] 1 tab PO 2XW 09/17/16 04/22/18 Review of Systems - Physician Review All systems were reviewed & negative as marked: Yes - Review of Systems Constitutional: Normal. absent: Fevers Eyes: Normal ENT: Normal Respiratory: Normal. absent: SOB, Cough Cardiovascular: Normal, Edema. absent: Chest Pain Gastrointestinal: Normal. absent: Abdominal Pain, Nausea, Vomiting Genitourinary Male: Normal Musculoskeletal: Normal. absent: Back Pain, Neck Pain Skin: Normal Neurological: Normal. absent: Headache Endocrine: Normal Hemo/Lymphatic: Normal Psychiatric: Normal Physical Exam Vital Signs Reviewed: Yes Vital Signs Temp Pulse Resp BP Pulse Ox 06/23/18 15:25 97.9 F 110 H 16 112/74 100 06/23/18 15:22 98.0 F 132 H 18 129/79 99 Temperature: Afebrile Blood Pressure: Normal Pulse: Tachycardic Respiratory Rate: Normal Appearance: Positive for: Well-Appearing, Non-Toxic, Comfortable Pain Distress: None Mental Status: Positive for: Alert and Oriented X 3 - Systems Exam Head: Present: Atraumatic, Normocephalic Pupils: Present: PERRL Extroacular Muscles: Present: EOMI Conjunctiva: Present: Normal Mouth: Present: Moist Mucous Membranes Neck: Present: Normal Range of Motion Respiratory/Chest: Present: Clear to Auscultation, Decreased Breath Sounds (diminished breath sounds due to body habitus). No: Respiratory Distress, Accessory Muscle Use Cardiovascular: Present: Normal S1, S2, Tachycardic. No: Murmurs Abdomen: Present: Distention. No: Tenderness, Peritoneal Signs Back: Present: Normal Inspection Upper Extremity: Present: Normal Inspection. No: Cyanosis, Edema Lower Extremity: Present: Normal Inspection, Edema (+3 pitting edema bilaterally), Other (chronic venous stasis of bilateral lower extremities, dressings noted over lower extremities) Neurological: Present: GCS=15, CN II-XII Intact, Speech Normal (able to speak full sentences) Skin: Present: Warm, Dry, Normal Color. No: Rashes Psychiatric: Present: Alert, Oriented x 3, Normal Insight, Normal Concentration Medical Decision Making ED Course and Treatment: 06/23/18 16:54 Impression: 58 year old male who presents to the Emergency department for evaluation of tachycardia and hypotension. Differential Diagnosis included but are not limited to: Sepsis Orthostatic hypotension Cellulitis Plan: -- EKG -- Chest X-ray -- Labs -- Cardiac Enzymes -- Blood Work -- Reassess and disposition Prior Visits: Notes and results from previous visits were reviewed. Progress Notes: 06/23/18 19:43 Labs reviewed with leukocytosis noted to 14 and slightly elevated BNP consistent with his baseline. Chemistries reveal a glucose of 94 with repeat glucose at 120. Patient refuses to stay in hospital for observation. States he will follow up with his PCP. Scripts for antibiotics provided. He is stable for discharge. - Lab Interpretations I have reviewed the lab results: Yes - RAD Interpretation Radiology Orders: 06/23/18 16:31 CHEST PORTABLE [RAD] Stat - EKG Interpretation EKG Interpretation (Text): 06/23/18 16:54 EKG shows irregularly irregular rate consistent with A-fib at 94 bpm with prolonged QT intervals. Interpreted by me. Interpreted by ED Physician: Yes Type: 12 lead EKG - Scribe Statement The provider has reviewed the documentation as recorded by the Scribe Alicja Blankenship training with Dharmesh Montoya Provider Scribe Attestation: All medical record entries made by the Scribe were at my direction and personally dictated by me. I have reviewed the chart and agree that the record accurately reflects my personal performance of the history, physical exam, medical decision making, and the department course for this patient. I have also personally directed, reviewed, and agree with the discharge instructions and disposition. Disposition/Present on Arrival - Present on Arrival Any Indicators Present on Arrival: No History of DVT/PE: No History of Uncontrolled Diabetes: No Urinary Catheter: No History of Decub. Ulcer: No History Surgical Site Infection Following: None - Disposition Have Diagnosis and Disposition been Completed?: Yes Diagnosis: Cellulitis Disposition: HOME/ ROUTINE Disposition Time: 19:35 Patient Plan: Discharge Patient Problems: Current Active Problems Problem Status Onset Cellulitis Acute Condition: STABLE Discharge Instructions (ExitCare): Cellulitis (Skin Infection), Adult (DC), Cellulitis (ED) Print Language: ITALIAN Prescriptions: Clindamycin [Cleocin] 300 mg PO TID 10 Days #30 cap Referrals: Yamini Phelan MD [Medical Doctor] - [place] up [place] [facility] [place] - Follow up with primary Forms: Tykoon (Syrian)
[2018-06-23 17:54] VITALS: BP 124/60; PULSE 111; TEMP 97.7
[2018-06-23 17:56] LABS: BASO # 0.05 K/mm3 (0.0-2.0); BASO % 0.3 % (0.0-3.0); EOS # 0.5 (0.0-0.7); EOS % 3.2 % (1.5-5.0); GRAN # 11.99 (1.4-6.5); GRAN % 82.6 % (50.0-68.0); HEMOGLOBIN 10.3 g/dL (14.0-18.0); LYMPH # 1.2 (1.2-3.4); LYMPH % 8.3 % (22.0-35.0); MEAN CELL VOLUME 92.3 fl (80.0-105.0); MEAN CORPUSCULAR HEMOGLOBIN 29.3 pg (25.0-35.0); MEAN CORPUSCULAR HGB CONC 31.8 g/dl (31.0-37.0); MEAN PLATELET VOLUME 8.7 fl (7.0-11.0); MONO # 0.8 (0.1-0.6); MONO % 5.6 % (1.0-6.0); RBC 3.51 10^6/uL (3.5-6.1); RED CELL DISTRIBUTION WIDTH 15.7 % (11.5-14.5); WHITE BLOOD COUNT 14.5 10^3/uL (4.5-11.0)
[2018-06-23 18:08] LABS: ALB/GLOB RATIO 1.1 (1.1-1.8); ALBUMIN 3.7 g/dL (3.0-4.8); ALT/SGPT 13 U/L (7-56); AST/SGOT 21 U/L (17-59); BLOOD UREA NITROGEN 14 mg/dL (7-21); CALCIUM 8.5 mg/dL (8.4-10.5); GFR NON-AFRICAN AMERICAN > 60
[2018-06-23 18:20] LABS: B-TYPE NATRIURETIC PEPTIDE 1910 pg/mL (0-450); TROPONIN I < 0.01 ng/mL
[2018-06-23] MEDS ORDERED: Vancomycin 1gm in NS 250ml 1 GM/250 ML BAG IVPB STA (18:59)
[2018-06-23 20:13] VITALS: RESP 18
--- NOTE | 2018-06-24 08:28 | RAD ---
Date of service: 06/23/2018 HISTORY: sob COMPARISON: 04/22/2018 FINDINGS: LUNGS: No active pulmonary disease. PLEURA: No significant pleural effusion identified, no pneumothorax apparent. CARDIOVASCULAR: No aortic atherosclerotic calcification present. Moderate cardiomegaly no pulmonary vascular congestion. OSSEOUS STRUCTURES: No significant abnormalities. VISUALIZED UPPER ABDOMEN: Normal. OTHER FINDINGS: None. IMPRESSION: No active disease. Moderate cardiomegaly
--- NOTE | 2018-06-24 08:31 | CARD ---
APPROVED REPORT Date of service: 06/23/2018 EKG Measurement Heart [id number] <Conclusion> Atrial fibrillation with a competing junctional pacemaker Prolonged QT Abnormal ECG
== END 2018-06-23 20:05 | disposition home or self-care (01) ==
LOC: ED 15:19
DX: L03.116 Cellulitis of left lower limb (principal); L03.115 Cellulitis of right lower limb; E11.9 Type 2 diabetes mellitus without complications; I48.91 Unspecified atrial fibrillation; I50.9 Heart failure, unspecified; Z87.891 Personal history of nicotine dependence

== ENCOUNTER 2018-08-04 11:58 | Inpatient (IN) | payer OTHER ==
[2018-08-04 11:58] VITALS: PULSE 75
[2018-08-04] MEDS ORDERED: Albuterol-Ipratrop 3 mg / 0.5 (3 ml) UD IH STA (12:27)
--- NOTE | 2018-08-04 12:28 | ED PDOC ---
Arrival/HPI - General Chief Complaint: Abnormal Skin Integrity Time Seen by Provider: 08/04/18 12:00 Historian: Patient - History of Present Illness Narrative History of Present Illness (Text): 08/04/18 12:26 A 58 year old male, whose past medical history includes A-fib, CHF, diabetes and cellulitis, presents to the emergency department with a complaint of shortness of breath and bilateral foot pain. Patient notes that he was advised by Dr. Meadows to come into the emergency department for further evaluation of his ulcers. The patient reports difficulty standing due to the pain from his feet. The patient denies fevers, chills, headache, dizziness, chest pain, dyspnea on exertion, cough, abdominal pain, nausea, vomiting, diarrhea, back pain, neck pain, urinary/bowel changes, or any other complaint. Pain Management: Dr. Leiva Podiatry: Dr. Meadows Time/Duration: Other (Ongoing) Symptom Onset: Other (Ongoing) Symptom Course: Unchanged Activities at Onset: Rest, Light Context: Home Past Medical History - Provider Review Nursing Documentation Reviewed: Yes - Infectious Disease Hx of Infectious Diseases: None - Tetanus Immunization Tetanus Immunization: Unknown - Cardiac Hx Cardiac Disorders: Yes (Afib, CAD) Hx Cardiac Arrhythmia: Yes (afib) Hx Peripheral Edema: Yes (+2 pitting ble) Other/Comment: chronic venous insufficiency - Pulmonary Other/Comment: had the sleep study pt thinks they told him he had sleep apnea went to follow up with appt but "there ws no one there, the place was gone." pt stated. Couldn't remember the name of the place - Neurological Hx Neurological Disorder: Yes Other/Comment: tremors - HEENT Hx HEENT Disorder: Yes Other/Comment: glasses - Renal Hx Renal Disorder: Yes Hx Renal Failure: Yes (ARF 11/2014) Other/Comment: acute hemodialysis 11/2016, hd cath implanted by dr martin 12/12/2014 to r jugular for acute hd - Endocrine/Metabolic Hx Diabetes Mellitus Type 2: Yes - Hematological/Oncological Hx Blood Disorders: No - Integumentary Hx Dermatological Disorder: No Other/Comment: cellulitis on sudhir lower ext. Chronic venous insufficiency (previous triage) - Musculoskeletal/Rheumatological Hx Musculoskeletal Disorders: Yes (chronic ble leg pain) Hx Unsteady Gait: Yes (walker) - Gastrointestinal Hx Gastrointestinal Disorders: Yes (obese, hiatal hernia) Other/Comment: scheduled for endo 05/26/18 - Genitourinary/Gynecological Hx Genitourinary Disorders: No - Psychiatric Hx Psychophysiologic Disorder: Yes Hx Anxiety: Yes Hx Substance Use: No - Surgical History Other/Comment: multiple leg sx's including skin grafts done by various dr's, [facility] linus insertion kate 06/2015 and to maria guadalupe 09/25/16 - Anesthesia Hx Anesthesia: Yes Hx Anesthesia Reactions: No Hx Malignant Hyperthermia: No - Suicidal Assessment Feels Threatened In Home Enviroment: No Family/Social History - Physician Review Nursing Documentation Reviewed: Yes Family/Social History: No Known Family HX Smoking Status: Former Smoker Hx Alcohol Use: No (Pt stopped drinking.) Hx Substance Use: No Hx Substance Use Treatment: No Allergies/Home Meds Allergies/Adverse Reactions: Allergies meropenem [From Merrem] Adverse Reaction (Verified 08/04/18 12:15) PAIN Home Medications: Home Meds Medication Instructions Recorded Confirmed RX: Albuterol HFA [Ventolin HFA 90 1 puff IH BID PRN 09/17/16 08/04/18 mcg/actuation (8 g)] RX: Furosemide [Lasix] 1 tab PO BID 09/17/16 08/04/18 RX: Oxycodone HCl/Acetaminophen 1 tab PO Q4H PRN 09/17/16 08/04/18 [Percocet 10-325 mg Tablet] RX: metOLazone [Zaroxolyn] 1 tab PO 2XW 09/17/16 08/04/18 Review of Systems - Physician Review All systems were reviewed & negative as marked: Yes - Review of Systems Constitutional: absent: Fevers Respiratory: SOB. absent: Cough Cardiovascular: absent: Chest Pain, WALTERS Gastrointestinal: absent: Abdominal Pain, Stool Changes, Diarrhea, Nausea, Vomiting Genitourinary Male: absent: Urinary Output Changes Musculoskeletal: Other (Bilateral foot pain). absent: Back Pain, Neck Pain Neurological: absent: Headache, Dizziness Physical Exam Vital Signs Reviewed: Yes Vital Signs Temp Pulse Resp BP Pulse Ox 08/04/18 12:12 97.8 F 109 H 18 130/86 98 Temperature: Afebrile Blood Pressure: Normal Pulse: Tachycardic Respiratory Rate: Normal Appearance: Positive for: Well-Appearing, Non-Toxic, Comfortable Pain Distress: None Mental Status: Positive for: Alert and Oriented X 3 - Systems Exam Head: Present: Atraumatic, Normocephalic Pupils: Present: PERRL Extroacular Muscles: Present: EOMI Conjunctiva: Present: Normal Mouth: Present: Moist Mucous Membranes Neck: Present: Normal Range of Motion Respiratory/Chest: Present: Good Air Exchange, Wheezes (Mild wheezes and crackles). No: Respiratory Distress, Accessory Muscle Use Cardiovascular: Present: Regular Rate and Rhythm, Normal S1, S2. No: Murmurs Abdomen: No: Tenderness, Distention, Peritoneal Signs Back: Present: Normal Inspection Upper Extremity: Present: Normal Inspection. No: Cyanosis, Edema Lower Extremity: Present: Neurovascularly Intact, Other (bandages noted to b/l LE/. erythema noted. No crepitus. ). No: Edema Neurological: Present: GCS=15, CN II-XII Intact, Speech Normal Skin: Present: Warm, Dry, Normal Color. No: Rashes Psychiatric: Present: Alert, Oriented x 3, Normal Insight, Normal Concentration Medical Decision Making ED Course and Treatment: 08/04/18 12:29 Impression: A 58 year old male presents to the emergency department with a complaint of shortness of breath and bilateral foot pain. Plan: -- EKG -- Chest X-ray -- Labs -- Blood Culture -- Duoneb -- Reassess and disposition Prior Visits: Notes and results from previous visits were reviewed. Progress Notes: 08/04/18 14:53 b/l le cellulitis, worsened per Podiatry: sent in for admission appreciate consult w/ Dr. Meadows: to be admitted appreciate consult w/ Dr. Leiva: [facility]. 08/04/18 17:37 EK Afib, No stemi. denies any current sob or cp pt has a hx of P-Afib pt notes he did not take his toprolol today, 25mg. pressures WNL ordered. pt in nad - Lab Interpretations I have reviewed the lab results: Yes - RAD Interpretation Narrative RAD Interpretations (Text): Chest X-ray Dictator : Mark Whatley MD Report Date : 08/04/2018 14:17:06 IMPRESSION: Mild pulmonary vascular congestion in question. Cardiomegaly stable. No definite infiltrates bilaterally. - EKG Interpretation Interpreted by ED Physician: Yes Type: 12 lead EKG - Scribe Statement The provider has reviewed the documentation as recorded by the Lauraibe Aleida Graves Provider Radha Attestation: All medical record entries made by the Lauraibe were at my direction and personally dictated by me. I have reviewed the chart and agree that the record accurately reflects my personal performance of the history, physical exam, medical decision making, and the department course for this patient. I have also personally directed, reviewed, and agree with the discharge instructions and disposition. Disposition/Present on Arrival - Present on Arrival Any Indicators Present on Arrival: No History of DVT/PE: No History of Uncontrolled Diabetes: No Urinary Catheter: No History of Decub. Ulcer: No History Surgical Site Infection Following: None - Disposition Have Diagnosis and Disposition been Completed?: Yes Diagnosis: Cellulitis Disposition: HOSPITALIZED Disposition Time: 14:53 Patient Problems: Current Active Problems Problem Status Onset Cellulitis Acute Condition: GOOD
[2018-08-04 13:19] LABS: VENOUS BLOOD GAS BASE EXCESS 2.2 mmol/L (0.0-2.0); VENOUS BLOOD GAS PO2 40 mm/Hg (30-55); VENOUS BLOOD PH 7.34 (7.32-7.43)
[2018-08-04 13:20] LABS: BASO # 0.08 K/mm3 (0.0-2.0); BASO % 0.8 % (0.0-3.0); EOS # 0.3 (0.0-0.7); EOS % 2.4 % (1.5-5.0); GRAN # 8.61 (1.4-6.5); GRAN % 81.8 % (50.0-68.0); LYMPH % 9.3 % (22.0-35.0); MEAN CELL VOLUME 92.1 fl (80.0-105.0); MEAN CORPUSCULAR HEMOGLOBIN 28.3 pg (25.0-35.0); MEAN CORPUSCULAR HGB CONC 30.8 g/dl (31.0-37.0); MEAN PLATELET VOLUME 8.6 fl (7.0-11.0); MONO # 0.6 (0.1-0.6); MONO % 5.7 % (1.0-6.0); RBC 3.53 10^6/uL (3.5-6.1); RED CELL DISTRIBUTION WIDTH 16.9 % (11.5-14.5); WHITE BLOOD COUNT 10.5 10^3/uL (4.5-11.0)
[2018-08-04] MEDS ORDERED: Vancomycin 1gm in NS 250ml 1 GM/250 ML BAG IVPB STA (13:21)
[2018-08-04 13:32] LABS: INR 1.31; PARTIAL THROMBOPLASTIN TIME 31.3 Seconds (25.1-36.5); PROTHROMBIN TIME 15.1 SECONDS (9.4-12.5)
[2018-08-04 13:34] LABS: ALBUMIN 3.9 g/dL (3.0-4.8); ALT/SGPT 21 U/L (7-56); AST/SGOT 42 U/L (17-59); BLOOD UREA NITROGEN 11 mg/dL (7-21); CALCIUM 8.9 mg/dL (8.4-10.5); GFR NON-AFRICAN AMERICAN > 60
[2018-08-04 13:44] LABS: TROPONIN I < 0.01 ng/mL
--- NOTE | 2018-08-04 14:20 | RAD ---
Date of service: 08/04/2018 HISTORY: sob COMPARISON: Portable chest 06/23/2018. FINDINGS: LUNGS: No active pulmonary disease. PLEURA: No significant pleural effusion identified, no pneumothorax apparent. CARDIOVASCULAR: No aortic atherosclerotic calcification present. Cardiomegaly appears stable. Mild pulmonary vascular congestion in question. Clinically correlate further. OSSEOUS STRUCTURES: No significant abnormalities. VISUALIZED UPPER ABDOMEN: Normal. OTHER FINDINGS: None. IMPRESSION: Mild pulmonary vascular congestion in question. Cardiomegaly stable. No definite infiltrates bilaterally.
[2018-08-04] MEDS ORDERED: Piperacillin/Tazobact 3.375 gm 100 ML IVPB STA ×2 (14:21→14:57)
[2018-08-04 19:57] LABS: B-TYPE NATRIURETIC PEPTIDE 3030 pg/mL (0-450)
[2018-08-04] MEDS ORDERED: Oxycodone/Acetaminophen 5/325 mg Tab PO ONE (22:29)
[2018-08-05 00:50] VITALS: BMI 43.4
--- NOTE | 2018-08-05 08:27 | CP.PCM.CON ---
<Loida Cosby - Last Filed: 08/05/18 12:45> History of Present Illness - History of Present Illness History of Present Illness: PGY-[address] Coker ID consult: cellulitis b/1 LE Mr Doan, 58 M with PMH of lower extremity cellulitis, chronic lower extremity edema with venous ulcers, CAD, HTN, atrial fibrillation (NO ANTICOAGULANT), DM, JOSELINE, morbid obesity with BMI 42 [place] [facility] of worsening of chronic b/1 leg pain. He was admiited [place] [facility] for worsening lower extremity edema and new ulcerations. At that time, L wound cx grew Klebsiella oxytoca, stenotrophomona maltophilia. R wound Cx grew Acinetobecter Baumannii and MRSA. He was sent to rehab with PO zyvox and PO levaquin x 7 days. He came back home from rehab 1 week ago, able to ambulate with a walker. However, his legs got swollen again and pain is worsening (+) Animal contact: Dog brushing against his legs, no licking He denies fever or chills, no nausea or vomiting, no chest pain, no SOB, no headache or dizziness, denies insect bites, no abdominal pain, no diarrhea, no dysuria, no soaking of feet in water. Infectious Diseases consult is requested to further evaluate and manage. In ED, HR 110. Other VSS EK Afib, No stemi. denies any current sob or cp CBC: WBC 10.5, Hb 10, CMP normal. Cre 0.8 lactate 1.2 He got vanco and zosyn x 1 in ED Blood culture was obtained Podiatry was consulted PMH Chronic lower extremity cellulitis, chronic lower extremity edema with venous ulcers CAD, HTN, atrial fibrillation, DM (A1C 5.9) JOSELINE, morbid obesity with BMI 42 PSH: appendectomy SH: 40 pack/year smoker, quit 15 years ago, daily alcohol use, denies drug use Allergies: Meropenem PMD: Dr Leiva Past Patient History - Infectious Disease Hx of Infectious Diseases: None - Tetanus Immunizations Tetanus Immunization: Unknown - Past Social History Smoking Status: Former Smoker - CARDIAC Hx Cardiac Disorders: Yes (Afib, CAD) Hx Cardia Arrhythmia: Yes (afib) Hx Peripheral Edema: Yes (+2 pitting ble) Other/Comment: chronic venous insufficiency - PULMONARY Other/Comment: had the sleep study pt thinks they told him he had sleep apnea went to follow up with appt but "there ws no one there, the place was gone." pt stated. Couldn't remember the name of the place - NEUROLOGICAL Hx Neurological Disorder: Yes Other/Comment: tremors - HEENT Hx HEENT Problems: Yes Other/Comment: glasses - RENAL Hx Chronic Kidney Disease: Yes Hx Renal Failure: Yes (ARF 11/2014) Other/Comment: acute hemodialysis 11/2016, hd cath implanted by dr martin 12/12/2014 to r jugular for acute hd - ENDOCRINE/METABOLIC Hx Diabetes Mellitus Type 2: Yes - HEMATOLOGICAL/ONCOLOGICAL Hx Blood Disorders: No - INTEGUMENTARY Hx Dermatological Problems: No Other/Comment: cellulitis on sudhir lower ext. Chronic venous insufficiency (previous triage) - MUSCULOSKELETAL/RHEUMATOLOGICAL Hx Musculoskeletal Disorders: Yes (chronic ble leg pain) Hx Falls: Yes Hx Unsteady Gait: Yes (walker) - GASTROINTESTINAL Hx Gastrointestinal Disorders: Yes (obese, hiatal hernia) Other/Comment: scheduled for endo 05/26/18 - GENITOURINARY/GYNECOLOGICAL Hx Genitourinary Disorders: No - PSYCHIATRIC Hx Psychophysiologic Disorder: Yes Hx Anxiety: Yes - SURGICAL HISTORY Other/Comment: multiple leg sx's including skin grafts done by various dr's, [facility] linus insertion kate 06/2015 and to maria guadalupe 09/25/16 - ANESTHESIA Hx Anesthesia: Yes Hx Anesthesia Reactions: No Hx Malignant Hyperthermia: No Meds Allergies/Adverse Reactions: Allergies Allergy/AdvReac Type Severity Reaction Status Date / Time meropenem [From Merrem] AdvReac PAIN Verified 08/04/18 12:15 - Medications Medications: Current Medications Vancomycin HCl (Vancomycin 1gm) 1 gm in 250 mls @ 167 mls/hr IVPB Q12H SHAHEED; Protocol Physical Exam - Constitutional Appears: No Acute Distress - Head Exam Head Exam: ATRAUMATIC, NORMAL INSPECTION, NORMOCEPHALIC - Eye Exam Eye Exam: EOMI, Normal appearance, PERRL. absent: Scleral icterus Pupil Exam: NORMAL ACCOMODATION - ENT Exam ENT Exam: Mucous Membranes Moist - Neck Exam Additional comments: supple - Respiratory Exam Respiratory Exam: Decreased Breath Sounds (b/l lung bases), Clear to Auscultation Bilateral, NORMAL BREATHING PATTERN. absent: Rales, Rhonchi, Wheezes - Cardiovascular Exam Cardiovascular Exam: REGULAR RHYTHM, +S1, +S2. absent: Systolic Murmur - GI/Abdominal Exam GI & Abdominal Exam: Normal Bowel Sounds, Soft. absent: Distended, Firm, Guarding, Rigid, Tenderness - Extremities Exam Extremities exam: Positive for: pedal edema. Negative for: calf tenderness Additional comments: dressing c/d/i - Back Exam Back exam: absent: CVA tenderness (L), CVA tenderness (R) - Neurological Exam Neurological exam: Alert, Oriented x3 - Psychiatric Exam Psychiatric exam: Normal Affect, Normal Mood - Skin Skin Exam: Warm Results - Vital Signs Recent Vital Signs: Last Vital Signs Temp 98.1 F 08/04/18 21:21 Pulse 89 08/04/18 21:21 Resp 18 08/04/18 23:00 BP 188/82 H 08/04/18 21:21 Pulse Ox 95 08/04/18 21:21 - Labs Result Diagrams: 08/04/18 13:00 08/04/18 13:00 Labs: Laboratory Results - last 24 hr 08/04/18 08/04/18 08/04/18 13:00 13:00 13:00 WBC 10.5 RBC 3.53 Hgb 10.0 L Hct 32.5 L MCV 92.1 MCH 28.3 MCHC 30.8 L RDW 16.9 H Plt Count 353 MPV 8.6 Gran % 81.8 H Lymph % (Auto) 9.3 L Norman % (Auto) 5.7 Eos % (Auto) 2.4 Baso % (Auto) 0.8 Gran # 8.61 H Lymph # (Auto) 1.0 L Norman # (Auto) 0.6 Eos # (Auto) 0.3 Baso # (Auto) 0.08 PT INR APTT pO2 40 VBG pH 7.34 VBG pCO2 54.0 VBG HCO3 29.1 H VBG Total CO2 30.8 H VBG O2 Sat (Calc) 72.5 H VBG Base Excess 2.2 H VBG Potassium 3.7 Sodium 139.0 140 Chloride 105.0 104 Glucose 130 H Lactate 1.2 FiO2 21.0 Potassium 3.8 Carbon Dioxide 27 Anion Gap 12 BUN 11 Creatinine 0.8 Est GFR ( Amer) > 60 Est GFR (Non-Af Amer) > 60 POC Glucose (mg/dL) Random Glucose 126 H Calcium 8.9 Magnesium 2.2 Total Bilirubin 0.6 AST 42 ALT 21 Alkaline Phosphatase 81 Troponin I < 0.01 NT-Pro-B Natriuret Pep 3030 H Total Protein 7.7 Albumin 3.9 Globulin 3.8 Albumin/Globulin Ratio 1.0 L Venous Blood Potassium 3.7 Blood Type Antibody Screen BBK History Checked 08/04/18 08/04/18 08/04/18 13:00 13:00 22:32 WBC RBC Hgb Hct MCV MCH MCHC RDW Plt Count MPV Gran % Lymph % (Auto) Norman % (Auto) Eos % (Auto) Baso % (Auto) Gran # Lymph # (Auto) Norman # (Auto) Eos # (Auto) Baso # (Auto) PT 15.1 H INR 1.31 APTT 31.3 pO2 VBG pH VBG pCO2 VBG HCO3 VBG Total CO2 VBG O2 Sat (Calc) VBG Base Excess VBG Potassium Sodium Chloride Glucose Lactate FiO2 Potassium Carbon Dioxide Anion Gap BUN Creatinine Est GFR ( Amer) Est GFR (Non-Af Amer) POC Glucose (mg/dL) 85 Random Glucose Calcium Magnesium Total Bilirubin AST ALT Alkaline Phosphatase Troponin I NT-Pro-B Natriuret Pep Total Protein Albumin Globulin Albumin/Globulin Ratio Venous Blood Potassium Blood Type A POSITIVE Antibody Screen Negative BBK History Checked Patient has bt Assessment & Plan - Assessment and Plan (Free Text) Plan: Mr Doan, 58 M with PMH of lower extremity cellulitis, chronic lower extremity edema with venous ulcers, CAD, HTN, atrial fibrillation on pradaxa, DM, JOSELINE, morbid obesity with BMI 42 [place] [facility] of worsening of chronic b/1 leg pain. He came back from rehab 1 week ago for b/l leg cellulitis, completed PO zyvox and PO levaquin x 7 days. . B/l Cellulitis (SIRS 1/4) Toe culture grows MRSA, klebsiella, Enterococcus faecais Hx LLE wound cx grew Klebsiella oxytoca, stenotrophomona maltophilia Hx R wound Cx grew Acinetobecter Baumannii and MRSA. Finished PO zyvox and PO levaquin x 7 days. A-fib, Hx on pradaxa, (Afib RVR resolved in ED) DM (A1C 5.9) - Pending blood culture - dressing per podiatry - vancomycin IV and ceftriaxone per culture sensitivty panel - ESR/CRP/x-ray to r/o osteo - pain control per primary team - Anticoagulation per primary team. Pt has [id number] score > 1, high risk for thromboembolic stroke s/r/d/w Dr. Coker <John PaulTalat krausAnastacio Andres S - Last Filed: 08/05/18 16:30> Meds - Medications Medications: Current Medications Alprazolam (Xanax) 1 mg PO BID PRN; Protocol PRN Reason: Anxiety Dabigatran (Pradaxa) 150 mg PO BID SHAHEED; Protocol Furosemide (Lasix) 80 mg IVP DAILY SHAHEED Last Admin: 08/05/18 10:28 Dose: 80 mg Vancomycin HCl (Vancomycin 1gm) 1 gm in 250 mls @ 167 mls/hr IVPB Q12H SHAHEED; Protocol Last Admin: 08/05/18 10:29 Dose: 167 mls/hr Ceftriaxone Sodium (Rocephin 1 Gram Ivpb) 1 gm in 100 mls @ 100 mls/hr IVPB DAILY SHAHEED; Protocol Insulin Human Regular (Humulin R Low) 0 units SC ACHS SHAHEED; Protocol Last Admin: 08/05/18 12:00 Dose: Not Given Metoprolol Tartrate (Lopressor) 25 mg PO BID SHAHEED Last Admin: 08/05/18 10:28 Dose: 25 mg Oxycodone/Acetaminophen (Percocet 10/325 Mg Tab) 1 tab PO Q6H PRN PRN Reason: Pain, moderate (4-7) Last Admin: 08/05/18 10:32 Dose: 1 tab Results - Vital Signs Recent Vital Signs: Last Vital Signs Temp 98.2 F 08/05/18 14:00 Pulse 82 08/05/18 14:00 Resp 20 08/05/18 14:00 BP 158/88 H 08/05/18 14:00 Pulse Ox 96 08/05/18 14:00 - Labs Result Diagrams: 08/04/18 13:00 08/04/18 13:00 Labs: Laboratory Results - last 24 hr 08/04/18 08/04/18 08/05/18 13:00 22:32 11:10 ESR 74 H Sodium 140 Potassium 3.8 Chloride 104 Carbon Dioxide 27 Anion Gap 12 BUN 11 Creatinine 0.8 Est GFR ( Amer) > 60 Est GFR (Non-Af Amer) > 60 POC Glucose (mg/dL) 85 Random Glucose 126 H Calcium 8.9 Magnesium 2.2 Total Bilirubin 0.6 AST 42 ALT 21 Alkaline Phosphatase 81 Troponin I < 0.01 NT-Pro-B Natriuret Pep 3030 H Total Protein 7.7 Albumin 3.9 Globulin 3.8 Albumin/Globulin Ratio 1.0 L Assessment & Plan - Assessment and Plan (Free Text) Plan: Infectious diseases Attending Physician Attestation Patient seen and examined, discussed with lpn medical assistant. I have reviewed the patient's history of present illness, past medical, social, personal and family histories, pertinent physical exam findings, course so far in this hospital admission, pertinent laboratory and imaging results. I agree with the above findings, assessment and plan. In addition, started Vancomycin and Rocephin for leg celllulitis, most recent cultures from 07/28/2018 showed MRSA, Klebsiella , E. faecalis. Follow up Podiatry evaluation.
[2018-08-05] MEDS: Vancomycin 1gm in NS 250ml 1 GM/250 ML BAG IVPB SCH ×2 (10:29→21:27)
[2018-08-05] MEDS: Oxycodone/Acetaminophen 10/325 mg Tab PO PRN ×2 (10:32→21:28)
--- NOTE | 2018-08-05 11:24 | CARD ---
APPROVED REPORT Date of service: 08/04/2018 EKG Measurement Heart [id number] <Conclusion> Atrial fibrillation with rapid ventricular response NSSTW changes C/W prior ECG, the rate is faster
[2018-08-05] MEDS: Insulin Reg-LOW-Coverage SC SCH ×3 (12:00→22:26)
--- NOTE | 2018-08-05 12:06 | HP ---
DATE OF EXAM: 08/05/2018 HISTORY OF PRESENT ILLNESS: The patient is a 58-year-old male with a past medical history of chronic venous stasis ulcers and recurrent cellulitis of the lower extremities referred by Dr. Meadows for increasing swelling, redness and pain of the lower extremities. The patient is admitted to the medical-surgical floor for cellulitis of the lower extremities when the infected venous stasis ulcers, has been empirically started on IV antibiotics. Infectious Disease consultation has been called with Dr. Alexander as well as wound care management with Dr. Meadows. PAST MEDICAL HISTORY: Includes hypertension, hypertensive cardiovascular disease, CHF, paroxysmal atrial fibrillation, COPD, obstructive sleep apnea, morbid obesity, nonobstructive coronary artery disease, type 2 diabetes mellitus with diabetic neuropathy. PAST SURGICAL HISTORY: Includes chronic venous insufficiency with chronic venous stasis ulcers and recurrent cellulitis of the lower extremities. MEDICATIONS: Current medications include Lasix 80 mg daily, Zaroxolyn 5 mg every other day, Lipitor 80 mg daily, metoprolol 25 mg twice daily, Pradaxa 150 mg twice daily, Protonix 40 mg daily, K-Dur 20 mEq daily, Percocet 10/325 one tablet every 6 hours and Xanax 1 mg twice daily for anxiety disorder. SOCIAL HISTORY: The patient has a history of tobacco and alcohol use. FAMILY HISTORY: Noncontributory. ALLERGIES: THE PATIENT HAS NO KNOWN ALLERGIES. REVIEW OF SYSTEMS: The patient denies any chest pain or shortness of breath. He has mild dyspnea on exertion. There is no fever, no chills. No nausea, no vomiting, no diarrhea. No jaundice. PHYSICAL EXAMINATION: GENERAL: The patient is a well-developed obese male, in no acute distress. VITAL SIGNS: Blood pressure 150/90, temperature 98.6, pulse 92, respiratory rate 20. HEENT: Head is normocephalic, atraumatic. Pupils equal, round, reactive to light. Extraocular movements intact. NECK: Supple. No thyromegaly. No carotid bruit. No adenopathy. LUNGS: Show bibasilar rales and scattered rhonchi. HEART: Regular rate and rhythm. ABDOMEN: Soft, nontender, obese. Bowel sounds are normoactive. EXTREMITIES: Show a 3 to 4+ edema of the lower extremities to knees bilaterally. Leg dressings are intact and clean. NEUROLOGIC: The patient is awake and oriented x3 without focal sensory or motor deficits. SKIN: Warm and dry. LABORATORY DATA: WBCs 10.5, hemoglobin 10.0, hematocrit 32.5, platelets 353. Sodium 140, potassium 3.8, chloride 104, CO2 27, BUN 11, creatinine 0.8, glucose is 126. BNP is elevated 3030. Troponin is less than 0.01. Chest x-ray shows bilateral vascular congestive changes which are mild. IMPRESSION: 1. Chronic venous stasis ulcers, infected with recurrent cellulitis of the lower extremities. 2. Hypertension, hypertensive cardiovascular disease and congestive heart failure. 3. Paroxysmal atrial fibrillation. 4. Chronic obstructive pulmonary disease. 5. Obstructive sleep apnea. 6. Nonobstructive coronary artery disease. 7. Type 2 diabetes mellitus with diabetic neuropathy and morbid obesity. PLAN: The patient is admitted to the medical-surgical unit. We will obtain wound care with Dr. Meadows. The patient has currently received a dose of Zosyn and vancomycin in the emergency room. We will obtain Infectious Disease consultation with Dr. Alexander, wound care with Dr. Meadows. Regular insulin coverage with Accu-Cheks 4 times daily, monitor electrolytes, BUN and creatinine, physical therapy and social work for discharge planning. MELCHOR Sousa MD
--- NOTE | 2018-08-05 13:04 | CP.PCM.CON ---
<StaciaTraci - Last Filed: 08/05/18 16:28> History of Present Illness - History of Present Illness History of Present Illness: Podiatry Consult Dr. Kaur 58M patient, with PMHx of Afib, CHF, COPD, DM, HTN, and morbid obesity seen and evaluated at bedside for bilateral foot pain and edema. Patient states that he had shortness of breath yesterday, however feels it is resolving. He states that he saw Dr. Meadows yesterday in the wound care center who recommended he go to the emergency room for further evaluation of SOB and his ulcerations secondary to worsening cellulitis. He denies any other pedal complaints at this time. Patient denies N/V/F/CP/chills. PMHx: as above ALL: meropenem Review of Systems - Review of Systems Review of Systems: As per HPI Past Patient History - Infectious Disease Hx of Infectious Diseases: None - Tetanus Immunizations Tetanus Immunization: Unknown - Past Social History Smoking Status: Former Smoker - CARDIAC Hx Cardiac Disorders: Yes (Afib, CAD) Hx Cardia Arrhythmia: Yes (afib) Hx Peripheral Edema: Yes (+2 pitting ble) Other/Comment: chronic venous insufficiency - PULMONARY Other/Comment: had the sleep study pt thinks they told him he had sleep apnea went to follow up with appt but "there ws no one there, the place was gone." pt stated. Couldn't remember the name of the place - NEUROLOGICAL Hx Neurological Disorder: Yes Other/Comment: tremors - HEENT Hx HEENT Problems: Yes Other/Comment: glasses - RENAL Hx Chronic Kidney Disease: Yes Hx Renal Failure: Yes (ARF 11/2014) Other/Comment: acute hemodialysis 11/2016, hd cath implanted by dr martin to r jugular for acute hd - ENDOCRINE/METABOLIC Hx Diabetes Mellitus Type 2: Yes - HEMATOLOGICAL/ONCOLOGICAL Hx Blood Disorders: No - INTEGUMENTARY Hx Dermatological Problems: No Other/Comment: cellulitis on sudhir lower ext. Chronic venous insufficiency (previous triage) - MUSCULOSKELETAL/RHEUMATOLOGICAL Hx Musculoskeletal Disorders: Yes (chronic ble leg pain) Hx Falls: Yes Hx Unsteady Gait: Yes (walker) - GASTROINTESTINAL Hx Gastrointestinal Disorders: Yes (obese, hiatal hernia) Other/Comment: scheduled for endo 05/26/18 - GENITOURINARY/GYNECOLOGICAL Hx Genitourinary Disorders: No - PSYCHIATRIC Hx Psychophysiologic Disorder: Yes Hx Anxiety: Yes - SURGICAL HISTORY Other/Comment: multiple leg sx's including skin grafts done by various dr's, [facility] linus insertion kate 06/2015 and to maria guadalupe 09/25/16 - ANESTHESIA Hx Anesthesia: Yes Hx Anesthesia Reactions: No Hx Malignant Hyperthermia: No Meds Allergies/Adverse Reactions: Allergies Allergy/AdvReac Type Severity Reaction Status Date / Time meropenem [From Merrem] AdvReac PAIN Verified 08/04/18 12:15 - Medications Medications: Current Medications Alprazolam (Xanax) 1 mg PO BID PRN; Protocol PRN Reason: Anxiety Dabigatran (Pradaxa) 150 mg PO BID [facility]; Protocol Furosemide (Lasix) 80 mg IVP DAILY [facility] Last Admin: 08/05/18 10:28 Dose: 80 mg Vancomycin HCl (Vancomycin 1gm) 1 gm in 250 mls @ 167 mls/hr IVPB Q12H [facility]; P rotocol Last Admin: 08/05/18 10:29 Dose: 167 mls/hr Ceftriaxone Sodium (Rocephin 1 Gram Ivpb) 1 gm in 100 mls @ 100 mls/hr IVPB DAILY [facility]; Protocol Insulin Human Regular (Humulin R Low) 0 units SC ACHS [facility]; Protocol Metoprolol Tartrate (Lopressor) 25 mg PO BID [facility] Last Admin: 08/05/18 10:28 Dose: 25 mg Oxycodone/Acetaminophen (Percocet 10/325 Mg Tab) 1 tab PO Q6H PRN PRN Reason: Pain, moderate (4-7) Last Admin: 08/05/18 10:32 Dose: 1 tab Physical Exam - Constitutional Appears: Well, Non-toxic, No Acute Distress - Head Exam Head Exam: ATRAUMATIC, NORMOCEPHALIC - Extremities Exam Additional comments: LE focused exam: Vasc: Nonpalpable DP and PT pulses secondary to chronic indurated edema b/l. Temperature gradient warm to warm b/l. +2 pitting edema bilaterally. Ortho: Diffuse tenderness upon palpation noted to bilateral LE. Neuro: Gross and protective sensation grossly intact b/l. Derm: Significant drainage appreciated to b/l lower extremities. Deep rubor present to b/l lower extremities beginning from tibial tuberosity extending distally to digits, small breaks in the skin noted to b/l lower extremities, mild malodor appreciated, no puruelnce, no fluctuance, no tracking, no tunneling, no undermining, no probe to bone - Neurological Exam Neurological exam: Alert - Psychiatric Exam Psychiatric exam: Normal Affect, Normal Mood Results - Vital Signs Recent Vital Signs: Last Vital Signs Temp 98.6 F 08/05/18 06:00 Pulse 92 H 08/05/18 06:00 Resp 20 08/05/18 06:00 BP 150/90 08/05/18 10:28 Pulse Ox 97 08/05/18 06:00 - Labs Result Diagrams: 08/04/18 13:00 08/04/18 13:00 Labs: Laboratory Results - last 24 hr 08/04/18 08/04/18 08/04/18 13:00 13:00 13:00 WBC 10.5 RBC 3.53 Hgb 10.0 L Hct 32.5 L MCV 92.1 MCH 28.3 MCHC 30.8 L RDW 16.9 H Plt Count 353 MPV 8.6 Gran % 81.8 H Lymph % (Auto) 9.3 L [place] % (Auto) 5.7 Eos % (Auto) 2.4 Baso % (Auto) 0.8 Gran # 8.61 H Lymph # (Auto) 1.0 L [place] # (Auto) 0.6 Eos # (Auto) 0.3 Baso # (Auto) 0.08 ESR PT INR APTT pO2 40 VBG pH 7.34 VBG pCO2 54.0 VBG HCO3 29.1 H VBG Total CO2 30.8 H VBG O2 Sat (Calc) 72.5 H VBG Base Excess 2.2 H VBG Potassium 3.7 Sodium 139.0 140 Chloride 105.0 104 Glucose 130 H Lactate 1.2 FiO2 21.0 Potassium 3.8 Carbon Dioxide 27 Anion Gap 12 BUN 11 Creatinine 0.8 Est GFR ( Amer) > 60 Est GFR (Non-Af Amer) > 60 POC Glucose (mg/dL) Random Glucose 126 H Calcium 8.9 Magnesium 2.2 Total Bilirubin 0.6 AST 42 ALT 21 Alkaline Phosphatase 81 Troponin I < 0.01 NT-Pro-B Natriuret Pep 3030 H Total Protein 7.7 Albumin 3.9 Globulin 3.8 Albumin/Globulin Ratio 1.0 L Venous Blood Potassium 3.7 Blood Type Antibody Screen BBK History Checked 08/04/18 08/04/18 08/04/18 13:00 13:00 22:32 WBC RBC Hgb Hct MCV MCH MCHC RDW Plt Count MPV Gran % Lymph % (Auto) [place] % (Auto) Eos % (Auto) Baso % (Auto) Gran # Lymph # (Auto) [place] # (Auto) Eos # (Auto) Baso # (Auto) ESR PT 15.1 H INR 1.31 APTT 31.3 pO2 VBG pH VBG pCO2 VBG HCO3 VBG Total CO2 VBG O2 Sat (Calc) VBG Base Excess VBG Potassium Sodium Chloride Glucose Lactate FiO2 Potassium Carbon Dioxide Anion Gap BUN Creatinine Est GFR ( Amer) Est GFR (Non-Af Amer) POC Glucose (mg/dL) 85 Random Glucose Calcium Magnesium Total Bilirubin AST ALT Alkaline Phosphatase Troponin I NT-Pro-B Natriuret Pep Total Protein Albumin Globulin Albumin/Globulin Ratio Venous Blood Potassium Blood Type A POSITIVE Antibody Screen Negative BBK History Checked Patient has bt 08/05/18 11:10 WBC RBC Hgb Hct MCV MCH MCHC RDW Plt Count MPV Gran % Lymph % (Auto) [place] % (Auto) Eos % (Auto) Baso % (Auto) Gran # Lymph # (Auto) [place] # (Auto) Eos # (Auto) Baso # (Auto) ESR 74 H PT INR APTT pO2 VBG pH VBG pCO2 VBG HCO3 VBG Total CO2 VBG O2 Sat (Calc) VBG Base Excess VBG Potassium Sodium Chloride Glucose Lactate FiO2 Potassium Carbon Dioxide Anion Gap BUN Creatinine Est GFR ( Amer) Est GFR (Non-Af Amer) POC Glucose (mg/dL) Random Glucose Calcium Magnesium Total Bilirubin AST ALT Alkaline Phosphatase Troponin I NT-Pro-B Natriuret Pep Total Protein Albumin Globulin Albumin/Globulin Ratio Venous Blood Potassium Blood Type Antibody Screen BBK History Checked Assessment & Plan - Assessment and Plan (Free Text) Assessment: 58M patient, with PMHx of Afib, CHF, COPD, DM, HTN, and morbid obesity seen and evaluated at bedside for bilateral foot pain and edema. Plan: Patient seen adn evaluated at bedside with Dr. Kaur Afebrile, WBC 10.5 R foot x-ray; no evidence of OM L foot x-ray; no definite evidence of OM, area of radiolucency to distal aspect of the 1st proximal phalanx ESR 74; CRP, pending Wound culture toe (07/28/18); MRSA, Enterococcus, Klebsiella ID consulted, continue with ID reccs; vancomycin IV and ceftriaxone per culture sensitivty panel Wounds dressed with Maxorb, DSD, LARY No plan for surgical intervention at this time Patient informed to keep legs elevated at all times Podiatry will continue to follow while patient in house - Date & Time Date: 08/05/18 Time: 13:04 <Andres Kaur - Last Filed: 08/05/18 17:03> Meds - Medications Medications: Current Medications Alprazolam (Xanax) 1 mg PO BID PRN; Protocol PRN Reason: Anxiety Dabigatran (Pradaxa) 150 mg PO BID [facility]; Protocol Furosemide (Lasix) 80 mg IVP DAILY [facility] Last Admin: 08/05/18 10:28 Dose: 80 mg Vancomycin HCl (Vancomycin 1gm) 1 gm in 250 mls @ 167 mls/hr IVPB Q12H [facility]; Protocol Last Admin: 08/05/18 10:29 Dose: 167 mls/hr Ceftriaxone Sodium (Rocephin 1 Gram Ivpb) 1 gm in 100 mls @ 100 mls/hr IVPB DAILY [facility]; Protocol Insulin Human Regular (Humulin R Low) 0 units SC ACHS [facility]; Protocol Last Admin: 08/05/18 12:00 Dose: Not Given Metoprolol Tartrate (Lopressor) 25 mg PO BID [facility] Last Admin: 08/05/18 10:28 Dose: 25 mg Oxycodone/Acetaminophen (Percocet 10/325 Mg Tab) 1 tab PO Q6H PRN PRN Reason: Pain, moderate (4-7) Last Admin: 08/05/18 10:32 Dose: 1 tab Results - Vital Signs Recent Vital Signs: Last Vital Signs Temp 98.2 F 08/05/18 14:00 Pulse 82 08/05/18 14:00 Resp 20 08/05/18 14:00 BP 158/88 H 08/05/18 14:00 Pulse Ox 96 08/05/18 14:00 - Labs Result Diagrams: 08/04/18 13:00 08/04/18 13:00 Labs: Laboratory Results - last 24 hr 08/04/18 08/04/18 08/05/18 13:00 22:32 11:10 ESR 74 H Sodium 140 Potassium 3.8 Chloride 104 Carbon Dioxide 27 Anion Gap 12 BUN 11 Creatinine 0.8 Est GFR ( Amer) > 60 Est GFR (Non-Af Amer) > 60 POC Glucose (mg/dL) 85 Random Glucose 126 H Calcium 8.9 Magnesium 2.2 Total Bilirubin 0.6 AST 42 ALT 21 Alkaline Phosphatase 81 Troponin I < 0.01 C-Reactive Protein NT-Pro-B Natriuret Pep 3030 H Total Protein 7.7 Albumin 3.9 Globulin 3.8 Albumin/Globulin Ratio 1.0 L 08/05/18 11:10 ESR Sodium Potassium Chloride Carbon Dioxide Anion Gap BUN Creatinine Est GFR ( Amer) Est GFR (Non-Af Amer) POC Glucose (mg/dL) Random Glucose Calcium Magnesium Total Bilirubin AST ALT Alkaline Phosphatase Troponin I C-Reactive Protein 30.30 H NT-Pro-B Natriuret Pep Total Protein Albumin Globulin Albumin/Globulin Ratio Attending/Attestation - Attestation I have personally seen and examined this patient.: Yes I have fully participated in the care of the patient.: Yes I have reviewed all pertinent clinical information: Yes
--- NOTE | 2018-08-05 15:58 | RAD ---
Date of service: 08/05/2018 PROCEDURE: Left Foot Radiographs. HISTORY: r/o osteomyelitis COMPARISON: 04/14/2018 FINDINGS: BONES: No definite evidence of osteomyelitis. On the oblique film there is an area of lucency in the distal aspect of the 1st proximal phalanx. This could represent the early changes of osteomyelitis. Clinical correlation is suggested JOINTS: Normal. SOFT TISSUES: Normal. OTHER FINDINGS: None. IMPRESSION: No definite evidence of osteomyelitis. On the oblique film there is an area of lucency in the distal aspect of the 1st proximal phalanx. This could represent the early changes of osteomyelitis. Clinical correlation is suggested
--- NOTE | 2018-08-05 16:00 | RAD ---
Date of service: 08/05/2018 PROCEDURE: Right Foot Radiographs. HISTORY: r/o osteomyelitis COMPARISON: 04/14/2018 FINDINGS: BONES: No evidence of osteomyelitis JOINTS: Degenerative changes are seen in the 1st MTP joint. SOFT TISSUES: Normal. OTHER FINDINGS: None. IMPRESSION: No evidence of osteomyelitis
[2018-08-05] MEDS: cefTRIAXone 1 gm 1 GM/100 ML BAG IVPB SCH (19:16)
[2018-08-06] MEDS: Oxycodone/Acetaminophen 10/325 mg Tab PO PRN (04:40)
--- NOTE | 2018-08-06 07:59 | CP.PCM.PN ---
<Loida Cosby - Last Filed: 08/06/18 14:30> Subjective - Date & Time of Evaluation Date of Evaluation: 08/06/18 Time of Evaluation: 07:55 - Subjective Subjective: ID progress note PGY-[address] Coker Pt is in contact isolation. He is sitting by bedside. (+) chills. Leg pain controlled by percocet q6 prn. Pt is anxious but mood controlled by xanax Per podiatry, (+) Significant drainage b/l lower extremities. (+) Deep rubor from tibial tuberosity extending distally to digits with small breaks in the skin noted to b/l lower extremities (+) mild malodor. no puruelnce, no fluctuance, no tracking, no tunneling, no undermining, no probe to bone Objective - Vital Signs/Intake and Output Vital Signs (last 24 hours): Temp Pulse Resp BP Pulse Ox 97 F L 76 20 148/68 97 08/05/18 23:31 08/05/18 23:31 08/05/18 23:31 08/05/18 23:31 08/05/18 23:31 Intake and Output: 08/06/18 08/06/18 06:59 18:59 Output Total 500 Balance -500 - Medications Medications: Current Medications Alprazolam (Xanax) 1 mg PO BID PRN; Protocol PRN Reason: Anxiety Dabigatran (Pradaxa) 150 mg PO BID [facility]; Protocol Last Admin: 08/05/18 21:48 Dose: Not Given Furosemide (Lasix) 80 mg IVP DAILY [facility] Last Admin: 08/05/18 10:28 Dose: 80 mg Ceftriaxone Sodium (Rocephin 1 Gram Ivpb) 1 gm in 100 mls @ 100 mls/hr IVPB DAILY [facility]; Protocol Last Admin: 08/05/18 19:16 Dose: 100 mls/hr Vancomycin HCl (Vancomycin 1gm) 1 gm in 250 mls @ 167 mls/hr IVPB Q12 [facility]; Protocol Insulin Human Regular (Humulin R Low) 0 units SC ACHS [facility]; Protocol Last Admin: 08/05/18 22:26 Dose: Not Given Metoprolol Tartrate (Lopressor) 25 mg PO BID [facility] Last Admin: 08/05/18 19:29 Dose: 25 mg Oxycodone/Acetaminophen (Percocet 10/325 Mg Tab) 1 tab PO Q6H PRN PRN Reason: Pain, moderate (4-7) Last Admin: 08/06/18 04:40 Dose: 1 tab - Labs Labs: 08/04/18 13:00 08/04/18 13:00 PT 15.1 SECONDS (9.4-12.5) H 08/04/18 13:00 INR 1.31 08/04/18 13:00 APTT 31.3 Seconds (25.1-36.5) 08/04/18 13:00 - Constitutional Appears: No Acute Distress - Head Exam Head Exam: ATRAUMATIC, NORMAL INSPECTION, NORMOCEPHALIC - Eye Exam Eye Exam: EOMI, Normal appearance, PERRL. absent: Scleral icterus - ENT Exam ENT Exam: Mucous Membranes Moist - Neck Exam Additional comments: supple - Respiratory Exam Respiratory Exam: Clear to Ausculation Bilateral, NORMAL BREATHING PATTERN. absent: Rales, Rhonchi, Wheezes - Cardiovascular Exam Cardiovascular Exam: REGULAR RHYTHM, +S1, +S2. absent: Murmur - GI/Abdominal Exam GI & Abdominal Exam: Soft, Normal Bowel Sounds. absent: Guarding, Rigid, Tenderness - Extremities Exam Extremities Exam: Pedal Edema (2+). absent: Calf Tenderness Additional comments: dressing d/c/i. Toes with cap refill 2-3 seconds - Back Exam Back Exam: absent: CVA tenderness (L), CVA tenderness (R) - Neurological Exam Neurological Exam: Alert, Awake, Oriented x3 - Psychiatric Exam Psychiatric exam: Normal Affect, Normal Mood - Skin Skin Exam: Dry, Warm Assessment and Plan - Assessment and Plan (Free Text) Plan: Mr Doan, 58 M with PMH of lower extremity cellulitis, chronic lower extremity edema with venous ulcers, CAD, HTN, atrial fibrillation on pradaxa, DM, JOSELINE, morbid obesity with BMI 42 [place] [facility] [place] of worsening of chronic b/1 leg pain. He came back from rehab 1 week ago for b/l leg cellulitis, completed PO zyvox and PO levaquin x 7 days. . B/l LE Cellulitis (SIRS 1/4 for HR>90) with small open wounds with MRSA, k lebsiella, Enterococcus faecais 1 bottle blood culture grew coag negative staph Rule out osteomyelitis - CRP>14, ESR>70, small break in skin, No [id number] Hx LLE wound cx grew Klebsiella oxytoca, stenotrophomona maltophilia Hx R wound Cx grew Acinetobecter Baumannii and MRSA. Finished PO zyvox and PO levaquin x 7 days. Paroximal A-fib on pradaxa, (Afib RVR on admission, resolved) DM (A1C 5.9) Meropenem adverse effect of pain Plan - Repeat blood culture to rule out contamination. Pt had L inguinal hernia with mesh 20 years ago. - Wounds dressing with Maxorb, DSD, LARY per podiatry - vancomycin IV and ceftriaxone (day 2) per wound culture sensitivity panel - contact precaution for MRSA - L foot MRI to rule out osteomyelitis - pain control per primary team Imaging/Culture - Wound culture (08/05/18): gram neg phyllis and gram pos cocci - Wound culture (07/28/18): MRSA, enterococcus, klebsiella - blood culture (08/04) 1/2 bottles grows coagulase negative staph - blood culture (08/06): - R foot x-ray: no evidence of OM - L foot x-ray: area of radiolucency to distal 1st proximal phalanx - MRI (08/01): OM cannot excluded due to artifact. Recommend repeat - MRI (08/06): - ESR 74 - CRP 30 s/r/d/w Dr Coker <Anastacio Coker S - Last Filed: 08/06/18 16:24> Objective - Vital Signs/Intake and Output Vital Signs (last 24 hours): Temp Pulse Resp BP Pulse Ox 98.3 F 86 20 147/81 93 L 08/06/18 13:33 08/06/18 13:33 08/06/18 13:33 08/06/18 13:33 08/06/18 13:33 Intake and Output: 08/06/18 08/06/18 06:59 18:59 Output Total 500 Balance -500 - Medications Medications: Current Medications Alprazolam (Xanax) 1 mg PO BID [facility]; Protocol Dabigatran (Pradaxa) 150 mg PO BID [facility]; Protocol Last Admin: 08/06/18 09:51 Dose: 150 mg Furosemide (Lasix) 80 mg IVP DAILY [facility] Last Admin: 08/06/18 09:50 Dose: 80 mg Ceftriaxone Sodium (Rocephin 1 Gram Ivpb) 1 gm in 100 mls @ 100 mls/hr IVPB DAILY [facility]; Protocol Last Admin: 08/06/18 09:50 Dose: 100 mls/hr Vancomycin HCl (Vancomycin 1gm) 1 gm in 250 mls @ 167 mls/hr IVPB Q12 [facility]; Protocol Last Admin: 08/06/18 09:51 Dose: 167 mls/hr Insulin Human Regular (Humulin R Low) 0 units SC ACHS [facility]; Protocol Last Admin: 08/06/18 12:22 Dose: Not Given Metoprolol Tartrate (Lopressor) 25 mg PO BID [facility] Last Admin: 08/06/18 09:50 Dose: 25 mg Oxycodone/Acetaminophen (Percocet 10/325 Mg Tab) 1 tab PO Q6H [facility] Last Admin: 08/06/18 11:41 Dose: 1 tab - Labs Labs: 08/04/18 13:00 08/04/18 13:00 PT 15.1 SECONDS (9.4-12.5) H 08/04/18 13:00 INR 1.31 08/04/18 13:00 APTT 31.3 Seconds (25.1-36.5) 08/04/18 13:00 Assessment and Plan - Assessment and Plan (Free Text) Plan: Infectious diseases Attending Physician Attestation Patient seen and examined, discussed with medical assistant float. I have reviewed the patient's history of present illness, past medical, social, personal and family histories, pertinent physical exam findings, course so far in this hospital admission, pertinent laboratory and imaging results. I agree with the above findings, assessment and plan. In addition, continue Vancomycin and Rocephin for leg celllulitis, most recent cultures from 07/28/2018 showed MRSA, Klebsiella , E. faecalis. Discussed with Dr. Meadows - will need to get MRI of left foot to rule out osteomyelitis. Will follow up wound cx.
[2018-08-06] MEDS: Insulin Reg-LOW-Coverage SC SCH ×3 (08:18→22:23)
--- NOTE | 2018-08-06 09:41 | RAD ---
Date of service: 08/05/2018 PROCEDURE: Right Ankle Radiographs. HISTORY: r/o osteomyelitis COMPARISON: None available. FINDINGS: BONES: Normal. No fracture. No evidence of osteomyelitis JOINTS: Normal. No osteoarthritis. Ankle mortise maintained. Talar dome intact SOFT TISSUES: Normal. OTHER FINDINGS: Calcaneal spurs IMPRESSION: No acute findings
--- NOTE | 2018-08-06 09:42 | RAD ---
Date of service: 08/05/2018 PROCEDURE: Left Ankle Radiographs. HISTORY: r/o osteomyelitis COMPARISON: None available. FINDINGS: BONES: Normal. No fracture. No evidence of osteomyelitis JOINTS: Normal. No osteoarthritis. Ankle mortise maintained. Talar dome intact SOFT TISSUES: Normal. OTHER FINDINGS: None. IMPRESSION: No acute findings.
[2018-08-06] MEDS: cefTRIAXone 1 gm 1 GM/100 ML BAG IVPB SCH (09:50)
[2018-08-06] MEDS: Vancomycin 1gm in NS 250ml 1 GM/250 ML BAG IVPB SCH ×2 (09:51→21:35)
--- NOTE | 2018-08-06 10:39 | CP.PCM.PN ---
Subjective - Date & Time of Evaluation Date of Evaluation: 08/06/18 Time of Evaluation: 09:15 - Subjective Subjective: NAD, denies chest pain, no SOB Objective - Vital Signs/Intake and Output Vital Signs (last 24 hours): Temp Pulse Resp BP Pulse Ox 98.3 F 81 20 158/90 H 97 08/06/18 07:00 08/06/18 07:00 08/06/18 07:00 08/06/18 09:50 08/06/18 07:00 Intake and Output: 08/06/18 08/06/18 06:59 18:59 Output Total 500 Balance -500 - Medications Medications: Current Medications Dabigatran (Pradaxa) 150 mg PO BID [facility]; Protocol Last Admin: 08/06/18 09:51 Dose: 150 mg Furosemide (Lasix) 80 mg IVP DAILY [facility] Last Admin: 08/06/18 09:50 Dose: 80 mg Ceftriaxone Sodium (Rocephin 1 Gram Ivpb) 1 gm in 100 mls @ 100 mls/hr IVPB DAILY [facility]; Protocol Last Admin: 08/06/18 09:50 Dose: 100 mls/hr Vancomycin HCl (Vancomycin 1gm) 1 gm in 250 mls @ 167 mls/hr IVPB Q12 [facility]; Protocol Last Admin: 08/06/18 09:51 Dose: 167 mls/hr Insulin Human Regular (Humulin R Low) 0 units SC ACHS [facility]; Protocol Last Admin: 08/06/18 08:18 Dose: Not Given Metoprolol Tartrate (Lopressor) 25 mg PO BID [facility] Last Admin: 08/06/18 09:50 Dose: 25 mg Oxycodone/Acetaminophen (Percocet 10/325 Mg Tab) 1 tab PO Q6H [facility] - Labs Labs: 08/04/18 13:00 08/04/18 13:00 PT 15.1 SECONDS (9.4-12.5) H 08/04/18 13:00 INR 1.31 08/04/18 13:00 APTT 31.3 Seconds (25.1-36.5) 08/04/18 13:00 - Respiratory Exam Respiratory Exam: Clear to Ausculation Bilateral, NORMAL BREATHING PATTERN - Cardiovascular Exam Cardiovascular Exam: REGULAR RHYTHM - GI/Abdominal Exam GI & Abdominal Exam: Soft, Normal Bowel Sounds - Extremities Exam Additional comments: leg wound dressings clean/intact - Neurological Exam Neurological Exam: Alert, Awake Assessment and Plan (1) Cellulitis Status: Acute (2) CHF (congestive heart failure) Status: Chronic (3) COPD (chronic obstructive pulmonary disease) Status: Chronic (4) Diabetes Status: Chronic (5) Paroxysmal A-fib Status: Chronic - Assessment and Plan (Free Text) Plan: continue IV Abx, wound care
--- NOTE | 2018-08-06 11:31 | CP.PCM.PN ---
<Traci Palomo - Last Filed: 08/06/18 11:43> Subjective - Date & Time of Evaluation Date of Evaluation: 08/06/18 Time of Evaluation: 11:31 - Subjective Subjective: Podiatry Progress Note: Dr. Meadows 58M patient seen and evaluated for b/l edema with weeping, resolving, and L toe ulceration. Patient states that he is feeling better today however after takin the Lasix he "has to use the bathroom nonstop". He notes that his lower extremity dressings are dry today and they are no longer weeping like they were when he first saw Dr. Meadows in the wound care center. He denies any acute events overnight. Denies N/V/F/CP. Objective - Vital Signs/Intake and Output Vital Signs (last 24 hours): Temp Pulse Resp BP Pulse Ox 98.3 F 81 20 158/90 H 97 08/06/18 07:00 08/06/18 07:00 08/06/18 07:00 08/06/18 09:50 08/06/18 07:00 Intake and Output: 08/06/18 08/06/18 06:59 18:59 Output Total 500 Balance -500 - Medications Medications: Current Medications Alprazolam (Xanax) 1 mg PO BID [facility]; Protocol Dabigatran (Pradaxa) 150 mg PO BID [facility]; Protocol Last Admin: 08/06/18 09:51 Dose: 150 mg Furosemide (Lasix) 80 mg IVP DAILY [facility] Last Admin: 08/06/18 09:50 Dose: 80 mg Ceftriaxone Sodium (Rocephin 1 Gram Ivpb) 1 gm in 100 mls @ 100 mls/hr IVPB DAILY [facility]; Protocol Last Admin: 08/06/18 09:50 Dose: 100 mls/hr Vancomycin HCl (Vancomycin 1gm) 1 gm in 250 mls @ 167 mls/hr IVPB Q12 [facility]; Protocol Last Admin: 08/06/18 09:51 Dose: 167 mls/hr Insulin Human Regular (Humulin R Low) 0 units SC ACHS [facility]; Protocol Last Admin: 08/06/18 08:18 Dose: Not Given Metoprolol Tartrate (Lopressor) 25 mg PO BID [facility] Last Admin: 08/06/18 09:50 Dose: 25 mg Oxycodone/Acetaminophen (Percocet 10/325 Mg Tab) 1 tab PO Q6H [facility] - Labs Labs: 08/04/18 13:00 08/04/18 13:00 PT 15.1 SECONDS (9.4-12.5) H 08/04/18 13:00 INR 1.31 08/04/18 13:00 APTT 31.3 Seconds (25.1-36.5) 08/04/18 13:00 - Constitutional Appears: Non-toxic, No Acute Distress - Head Exam Head Exam: ATRAUMATIC, NORMOCEPHALIC - Extremities Exam Additional comments: LE focused exam: Vasc: Nonpalpable DP and PT pulses secondary to chronic indurated edema b/l. Temperature gradient warm to warm b/l. +2 pitting edema bilaterally. Ortho: Diffuse tenderness upon palpation noted to bilateral LE. Neuro: Gross and protective sensation grossly intact b/l. Derm: Mild drainage from L hallux ulceration, b/l lower extremities no longer weeping. Rubor present to b/l lower extremities beginning from tibial tuberosity extending distally to digits, small breaks in the skin noted to b/l lower extremities, no malodor appreciated, no purulence, no fluctuance, no tracking, no tunneling, no undermining, no probe to bone, significant xerosis to b/l lower extremities. - Neurological Exam Neurological Exam: Alert, Awake, Oriented x3 - Psychiatric Exam Psychiatric exam: Normal Affect, Normal Mood Assessment and Plan - Assessment and Plan (Free Text) Assessment: 58M patient seen and evaluated for b/l edema with mild weeping and L toe ulceration. Plan: Patient seen adn evaluated at bedside with Dr. Meadows R foot x-ray; no evidence of OM L foot x-ray; no definite evidence of OM, area of radiolucency to distal aspect of the 1st proximal phalanx L foot MRI to r/o OM of L toe; pending ESR 74; CRP, pending Wound culture toe (07/28/18); MRSA, Enterococcus, Klebsiella Blood culture (08/04); gram positive cocci in cluster ID consulted, continue with ID reccs; vancomycin IV and ceftriaxone per culture sensitivity panel R hallux wound dressed with Maxorb, DSD, b/l lower extremities dressed with DSD, LARY, no clinical signs of infection at this time No plan for surgical intervention at this time Patient informed to keep legs elevated at all times <Jolene Meadows - Last Filed: 08/11/18 14:32> Objective - Vital Signs/Intake and Output Vital Signs (last 24 hours): Temp Pulse Resp BP Pulse Ox 97.2 F L 90 20 109/67 160 H 08/09/18 06:00 08/09/18 09:29 08/09/18 06:00 08/09/18 09:22 08/09/18 06:00 - Labs Labs: 08/09/18 05:00 08/09/18 06:00 PT 15.1 SECONDS (9.4-12.5) H 08/04/18 13:00 INR 1.31 08/04/18 13:00 APTT 31.3 Seconds (25.1-36.5) 08/04/18 13:00 Attending/Attestation - Attestation I have personally seen and examined this patient.: Yes I have fully participated in the care of the patient.: Yes I have reviewed all pertinent clinical information, including history, physical exam and plan: Yes
[2018-08-06] MEDS: Oxycodone/Acetaminophen 10/325 mg Tab PO SCH ×3 (11:41→22:23)
[2018-08-07] MEDS: Oxycodone/Acetaminophen 10/325 mg Tab PO SCH ×5 (05:14→20:44)
--- NOTE | 2018-08-07 07:05 | CP.PCM.PN ---
<Loida Cosby - Last Filed: 08/07/18 13:47> Subjective - Date & Time of Evaluation Date of Evaluation: 08/07/18 Time of Evaluation: 07:04 - Subjective Subjective: ID Progress Note PGY-[address] Coker Pt states that swelling and pain on LE had improved. Pain control adequate (+) chills. Denies MCGUIRE, cp, SOB, n/v/d/c, dysuria Objective - Vital Signs/Intake and Output Vital Signs (last 24 hours): Temp Pulse Resp BP Pulse Ox 97.4 F L 70 22 131/82 96 08/06/18 22:00 08/06/18 22:00 08/06/18 22:00 08/06/18 22:00 08/06/18 22:00 Intake and Output: 08/07/18 08/07/18 06:59 18:59 Output Total 400 Balance -400 - Medications Medications: Current Medications Alprazolam (Xanax) 1 mg PO BID [facility]; Protocol Last Admin: 08/06/18 18:08 Dose: 1 mg Dabigatran (Pradaxa) 150 mg PO BID [facility]; Protocol Last Admin: 08/06/18 18:08 Dose: 150 mg Furosemide (Lasix) 80 mg IVP DAILY [facility] Last Admin: 08/06/18 09:50 Dose: 80 mg Ceftriaxone Sodium (Rocephin 1 Gram Ivpb) 1 gm in 100 mls @ 100 mls/hr IVPB DAILY [facility]; Protocol Last Admin: 08/06/18 09:50 Dose: 100 mls/hr Vancomycin HCl (Vancomycin 1gm) 1 gm in 250 mls @ 167 mls/hr IVPB Q12 [facility]; Protocol Last Admin: 08/06/18 21:35 Dose: 167 mls/hr Insulin Human Regular (Humulin R Low) 0 units SC ACHS [facility]; Protocol Last Admin: 08/06/18 22:23 Dose: Not Given Metoprolol Tartrate (Lopressor) 25 mg PO BID [facility] Last Admin: 08/06/18 18:08 Dose: 25 mg Oxycodone/Acetaminophen (Percocet 10/325 Mg Tab) 1 tab PO Q6H [facility] Last Admin: 08/07/18 05:14 Dose: 1 tab - Labs Labs: 08/04/18 13:00 08/04/18 13:00 PT 15.1 SECONDS (9.4-12.5) H 08/04/18 13:00 INR 1.31 08/04/18 13:00 APTT 31.3 Seconds (25.1-36.5) 08/04/18 13:00 - Constitutional Appears: No Acute Distress - Head Exam Head Exam: ATRAUMATIC, NORMAL INSPECTION, NORMOCEPHALIC - Eye Exam Eye Exam: EOMI, Normal appearance, PERRL. absent: Scleral icterus - ENT Exam ENT Exam: Mucous Membranes Moist - Neck Exam Additional comments: supple - Respiratory Exam Respiratory Exam: Clear to Ausculation Bilateral, NORMAL BREATHING PATTERN. absent: Rales, Rhonchi, Wheezes - Cardiovascular Exam Cardiovascular Exam: REGULAR RHYTHM, +S1, +S2. absent: Murmur - GI/Abdominal Exam GI & Abdominal Exam: Soft, Normal Bowel Sounds. absent: Guarding, Rigid, Rebound - Extremities Exam Extremities Exam: Pedal Edema. absent: Calf Tenderness Additional comments: dressing d/c/i toes warm - Back Exam Back Exam: absent: CVA tenderness (L), CVA tenderness (R) - Neurological Exam Neurological Exam: Alert, Awake, Oriented x3 - Psychiatric Exam Psychiatric exam: Normal Affect, Normal Mood - Skin Skin Exam: Dry, Warm Additional comments: Itchy Dark pigmentation under pannus of abdomen. No inguinal rash or tenderness Assessment and Plan - Assessment and Plan (Free Text) Plan: Mr Doan, 58 M with PMH of lower extremity cellulitis, chronic lower extremity edema with venous ulcers, CAD, HTN, atrial fibrillation on pradaxa, DM, JOSELINE, morbid obesity with BMI 42 came in to [facility] [place] complaining of worsening of chronic b/1 leg pain. He came back from rehab 1 week ago for b/l leg cellulitis, completed PO zyvox and PO levaquin x 7 days. . B/l LE Cellulitis (SIRS 1/4 for HR>90) with small open wounds with MRSA, klebsiella. Osteomyelitis had ruled out. Hx LLE wound cx grew Klebsiella oxytoca, stenotrophomona maltophilia Hx R wound Cx grew Acinetobecter Baumannii and MRSA. Finished PO zyvox and PO levaquin x 7 days. Paroximal A-fib on pradaxa, (Afib RVR on admission, resolved) DM (A1C 5.9) Meropenem adverse effect of pain Tinea corporis under abdominal pannus Plan - Wounds dressing with Maxorb, DSD, LARY per podiatry - vancomycin IV and ceftriaxone (day 2) per wound culture sensitivity panel - contact precaution for MRSA - L foot MRI to rule out osteomyelitis - pain control per primary team - Topical clotrimazole cream Imaging/Culture - Deep Wound culture (08/05/18): MRSA, Klebsiella - Deep Wound culture (07/28/18): MRSA, enterococcus, klebsiella - blood culture (08/04) 1/2 bottles grows coagulase negative staph - blood culture (08/06): neg x 1d - R foot x-ray: no evidence of OM - L foot x-ray: area of radiolucency to distal 1st proximal phalanx - MRI (08/01): OM cannot excluded due to artifact. Recommend repeat - MRI (08/07): No osteomyelitis - ESR 74 - CRP 30 S/R/D/w Dr Coker <Anastacio Coker S - Last Filed: 08/07/18 22:49> Objective - Vital Signs/Intake and Output Vital Signs (last 24 hours): Temp Pulse Resp BP Pulse Ox 97.6 F 85 20 128/82 97 08/07/18 06:00 08/07/18 18:35 08/07/18 06:00 08/07/18 09:25 08/07/18 06:00 Intake and Output: 08/07/18 08/08/18 18:59 06:59 Intake Total 720 Output Total 1000 Balance -280 - Medications Medications: Current Medications Alprazolam (Xanax) 1 mg PO BID [facility]; Protocol Last Admin: 08/07/18 18:37 Dose: 1 mg Clotrimazole (Lotrimin 1%) 0 gm TOP BID [facility] Last Admin: 08/07/18 18:39 Dose: 1 % Dabigatran (Pradaxa) 150 mg PO BID [facility]; Protocol Last Admin: 08/07/18 18:35 Dose: 150 mg Furosemide (Lasix) 80 mg IVP DAILY [facility] Last Admin: 08/07/18 09:25 Dose: 80 mg Ceftriaxone Sodium (Rocephin 1 Gram Ivpb) 1 gm in 100 mls @ 100 mls/hr IVPB DAILY [facility]; Protocol Last Admin: 08/07/18 09:26 Dose: 100 mls/hr Vancomycin HCl (Vancomycin 1gm) 1 gm in 250 mls @ 167 mls/hr IVPB Q12 [facility]; Protocol Last Admin: 08/07/18 09:26 Dose: 167 mls/hr Insulin Human Regular (Humulin R Low) 0 units SC ACHS [facility]; Protocol Last Admin: 08/07/18 16:23 Dose: Not Given Metoprolol Tartrate (Lopressor) 25 mg PO BID [facility] Last Admin: 08/07/18 18:35 Dose: 25 mg Oxycodone/Acetaminophen (Percocet 10/325 Mg Tab) 1 tab PO Q4H [facility] Last Admin: 08/07/18 20:44 Dose: 1 tab - Labs Labs: 08/07/18 06:50 08/07/18 06:50 PT 15.1 SECONDS (9.4-12.5) H 08/04/18 13:00 INR 1.31 08/04/18 13:00 APTT 31.3 Seconds (25.1-36.5) 08/04/18 13:00 Assessment and Plan - Assessment and Plan (Free Text) Plan: Infectious diseases Attending Physician Attestation Patient seen and examined, discussed with medical coder. I have reviewed the patient's history of present illness, past medical, social, personal and family histories, pertinent physical exam findings, course so far in this hospital admission, pertinent laboratory and imaging results. I agree with the above findings, assessment and plan. In addition, continue Vancomycin and Rocephin, for Klebsiella and MRSA left big toe skin and skin structure infection. MRI of left foot does not show osteomyelitis. Will need total 7-10 days of antibiotics.
[2018-08-07 07:17] LABS: BASO # 0.15 K/mm3 (0.0-2.0); BASO % 1.6 % (0.0-3.0); EOS # 0.6 (0.0-0.7); EOS % 6.9 % (1.5-5.0); GRAN # 6.29 (1.4-6.5); GRAN % 68.5 % (50.0-68.0); HEMOGLOBIN 9.6 g/dL (14.0-18.0); LYMPH # 1.3 (1.2-3.4); LYMPH % 14.1 % (22.0-35.0); MEAN CELL VOLUME 91.1 fl (80.0-105.0); MEAN CORPUSCULAR HEMOGLOBIN 27.6 pg (25.0-35.0); MEAN CORPUSCULAR HGB CONC 30.3 g/dl (31.0-37.0); MEAN PLATELET VOLUME 8.7 fl (7.0-11.0); MONO # 0.8 (0.1-0.6); MONO % 8.9 % (1.0-6.0); RBC 3.48 10^6/uL (3.5-6.1); RED CELL DISTRIBUTION WIDTH 16.7 % (11.5-14.5); WHITE BLOOD COUNT 9.2 10^3/uL (4.5-11.0)
[2018-08-07 07:48] LABS: ALBUMIN 3.4 g/dL (3.0-4.8); ALT/SGPT 24 U/L (7-56); AST/SGOT 26 U/L (17-59); BLOOD UREA NITROGEN 15 mg/dL (7-21); CALCIUM 8.4 mg/dL (8.4-10.5); GFR NON-AFRICAN AMERICAN > 60
[2018-08-07] MEDS: Insulin Reg-LOW-Coverage SC SCH ×4 (08:54→23:12)
[2018-08-07] MEDS: Vancomycin 1gm in NS 250ml 1 GM/250 ML BAG IVPB SCH ×2 (09:26→22:35)
[2018-08-07] MEDS: cefTRIAXone 1 gm 1 GM/100 ML BAG IVPB SCH (09:26)
--- NOTE | 2018-08-07 10:55 | MRI ---
Date of service: 08/07/2018 PROCEDURE: MRI of the left foot without contrast HISTORY: L toe ulceration COMPARISON: Plain films 08/05/2018 TECHNIQUE: MRI of the left foot was performed in multiple planes using multiple pulse sequences. FINDINGS: There is no evidence of marrow edema to suggest osteomyelitis. Specifically there are no changes seen in the big toe. There is a small amount of subcutaneous edema. IMPRESSION: No evidence of osteomyelitis
[2018-08-07] MEDS ORDERED: Potassium Chloride 20 mEq ER Tab PO ONE (12:03)
--- NOTE | 2018-08-07 12:05 | CP.PCM.PN ---
Subjective - Date & Time of Evaluation Date of Evaluation: 08/07/18 Time of Evaluation: 09:30 - Subjective Subjective: resting comfortable, NAD Objective - Vital Signs/Intake and Output Vital Signs (last 24 hours): Temp Pulse Resp BP Pulse Ox 97.6 F 85 20 128/82 97 08/07/18 06:00 08/07/18 09:26 08/07/18 06:00 08/07/18 09:25 08/07/18 06:00 Intake and Output: 08/07/18 08/07/18 06:59 18:59 Output Total 400 Balance -400 - Medications Medications: Current Medications Alprazolam (Xanax) 1 mg PO BID [facility]; Protocol Last Admin: 08/07/18 09:27 Dose: 1 mg Dabigatran (Pradaxa) 150 mg PO BID [facility]; Protocol Last Admin: 08/07/18 09:26 Dose: 150 mg Furosemide (Lasix) 80 mg IVP DAILY [facility] Last Admin: 08/07/18 09:25 Dose: 80 mg Ceftriaxone Sodium (Rocephin 1 Gram Ivpb) 1 gm in 100 mls @ 100 mls/hr IVPB DAILY [facility]; Protocol Last Admin: 08/07/18 09:26 Dose: 100 mls/hr Vancomycin HCl (Vancomycin 1gm) 1 gm in 250 mls @ 167 mls/hr IVPB Q12 [facility]; Protocol Last Admin: 08/07/18 09:26 Dose: 167 mls/hr Insulin Human Regular (Humulin R Low) 0 units SC ACHS [facility]; Protocol Last Admin: 08/07/18 11:46 Dose: Not Given Metoprolol Tartrate (Lopressor) 25 mg PO BID [facility] Last Admin: 08/07/18 09:26 Dose: 25 mg Oxycodone/Acetaminophen (Percocet 10/325 Mg Tab) 1 tab PO Q6H [facility] Last Admin: 08/07/18 10:16 Dose: 1 tab - Labs Labs: 08/07/18 06:50 08/07/18 06:50 PT 15.1 SECONDS (9.4-12.5) H 08/04/18 13:00 INR 1.31 08/04/18 13:00 APTT 31.3 Seconds (25.1-36.5) 08/04/18 13:00 - Respiratory Exam Respiratory Exam: Clear to Ausculation Bilateral, NORMAL BREATHING PATTERN - Cardiovascular Exam Cardiovascular Exam: REGULAR RHYTHM - GI/Abdominal Exam GI & Abdominal Exam: Soft, Normal Bowel Sounds - Neurological Exam Neurological Exam: Alert, Awake Assessment and Plan (1) Cellulitis Status: Acute (2) CHF (congestive heart failure) Status: Chronic (3) COPD (chronic obstructive pulmonary disease) Status: Chronic (4) Diabetes Status: Chronic (5) Paroxysmal A-fib Status: Chronic - Assessment and Plan (Free Text) Plan: monitor lytes, potassium ordered, for MRI of foot today r/o osteo
[2018-08-07] MEDS ORDERED: Unna Boot TOP ONE (13:23)
--- NOTE | 2018-08-07 13:47 | CP.PCM.PN ---
<Traci Palomo - Last Filed: 08/07/18 14:16> Subjective - Date & Time of Evaluation Date of Evaluation: 08/07/18 Time of Evaluation: 13:45 - Subjective Subjective: Podiatry Progress Note: Dr. Meadows 58M patient seen and evaluated for b/l edema with weeping, resolving, and L toe ulceration. Patient states that he is feeling well today. Denies any new pedal complaints at this time. Denies N/V/F/CP. Objective - Vital Signs/Intake and Output Vital Signs (last 24 hours): Temp Pulse Resp BP Pulse Ox 97.6 F 85 20 128/82 97 08/07/18 06:00 08/07/18 09:26 08/07/18 06:00 08/07/18 09:25 08/07/18 06:00 Intake and Output: 08/07/18 08/07/18 06:59 18:59 Output Total 400 Balance -400 - Medications Medications: Current Medications Alprazolam (Xanax) 1 mg PO BID [facility]; Protocol Last Admin: 08/07/18 09:27 Dose: 1 mg Dabigatran (Pradaxa) 150 mg PO BID [facility]; Protocol Last Admin: 08/07/18 09:26 Dose: 150 mg Furosemide (Lasix) 80 mg IVP DAILY [facility] Last Admin: 08/07/18 09:25 Dose: 80 mg Ceftriaxone Sodium (Rocephin 1 Gram Ivpb) 1 gm in 100 mls @ 100 mls/hr IVPB DAILY [facility]; Protocol Last Admin: 08/07/18 09:26 Dose: 100 mls/hr Vancomycin HCl (Vancomycin 1gm) 1 gm in 250 mls @ 167 mls/hr IVPB Q12 [facility]; Protocol Last Admin: 08/07/18 09:26 Dose: 167 mls/hr Insulin Human Regular (Humulin R Low) 0 units SC ACHS [facility]; Protocol Last Admin: 08/07/18 11:46 Dose: Not Given Metoprolol Tartrate (Lopressor) 25 mg PO BID [facility] Last Admin: 08/07/18 09:26 Dose: 25 mg Oxycodone/Acetaminophen (Percocet 10/325 Mg Tab) 1 tab PO Q4H [facility] Last Admin: 08/07/18 12:56 Dose: 1 tab - Labs Labs: 08/07/18 06:50 08/07/18 06:50 PT 15.1 SECONDS (9.4-12.5) H 08/04/18 13:00 INR 1.31 08/04/18 13:00 APTT 31.3 Seconds (25.1-36.5) 08/04/18 13:00 - Constitutional Appears: Well, Non-toxic, No Acute Distress - Head Exam Head Exam: ATRAUMATIC, NORMOCEPHALIC - Extremities Exam Additional comments: LE focused exam: Vasc: Nonpalpable DP and PT pulses secondary to chronic indurated edema b/l. Temperature gradient warm to warm b/l. +2 pitting edema bilaterally. Ortho: Diffuse tenderness upon palpation noted to bilateral LE. Neuro: Gross and protective sensation grossly intact b/l. Derm: Mild drainage from L hallux ulceration, b/l lower extremities no longer weeping. Rubor present to b/l lower extremities beginning from tibial tuberosity extending distally to digits, small breaks in the skin noted to b/l lower extremities, no malodor appreciated, no purulence, no fluctuance, no tracking, no tunneling, no undermining, no probe to bone, significant xerosis to b/l lower extremities. - Neurological Exam Neurological Exam: Alert, Awake, Oriented x3 - Psychiatric Exam Psychiatric exam: Normal Affect, Normal Mood Assessment and Plan - Assessment and Plan (Free Text) Assessment: 58M patient seen and evaluated for b/l edema and L toe ulceration. Plan: Patient seen adn evaluated at bedside with Dr. Meadows R foot x-ray; no evidence of OM L foot x-ray; no definite evidence of OM, area of radiolucency to distal aspect of the 1st proximal phalanx L foot MRI to r/o OM of L toe; no OM ESR 74; CRP, pending Wound culture toe (07/28/18); MRSA, Enterococcus, Klebsiella Blood culture (08/04); gram positive cocci in cluster ID consulted, continue with ID reccs; vancomycin IV and ceftriaxone per culture sensitivity panel Patient informed to keep legs elevated at all times Unna boots applied to b/l lower extremities, patient to follow up with Dr. Meadows in the wound care center upon D/C <Jolene Meadows - Last Filed: 08/11/18 14:27> Objective - Vital Signs/Intake and Output Vital Signs (last 24 hours): Temp Pulse Resp BP Pulse Ox 97.2 F L 90 20 109/67 160 H 08/09/18 06:00 08/09/18 09:29 08/09/18 06:00 08/09/18 09:22 08/09/18 06:00 - Labs Labs: 08/09/18 05:00 08/09/18 06:00 PT 15.1 SECONDS (9.4-12.5) H 08/04/18 13:00 INR 1.31 08/04/18 13:00 APTT 31.3 Seconds (25.1-36.5) 08/04/18 13:00 Attending/Attestation - Attestation I have personally seen and examined this patient.: Yes I have fully participated in the care of the patient.: Yes I have reviewed all pertinent clinical information, including history, physical exam and plan: Yes
[2018-08-07] MEDS: Clotrimazole 1% Cream(30 gm) TOP SCH (18:39)
[2018-08-08] MEDS: Oxycodone/Acetaminophen 10/325 mg Tab PO SCH ×6 (00:45→21:25)
--- NOTE | 2018-08-08 07:24 | CP.PCM.PN ---
<Loida Cosby - Last Filed: 08/08/18 14:38> Subjective - Date & Time of Evaluation Date of Evaluation: 08/08/18 Time of Evaluation: 07:21 - Subjective Subjective: ID progress note PGY-[address] Coker Pt stated that he no longer has chills. leg pain more controlled. denies fever/chills, cp, sob, n/v/d/c, dysuria Objective - Vital Signs/Intake and Output Vital Signs (last 24 hours): Temp Pulse Resp BP Pulse Ox 98.4 F 83 18 114/60 95 08/07/18 22:36 08/07/18 22:36 08/07/18 22:36 08/07/18 22:36 08/07/18 22:36 Intake and Output: 08/08/18 08/08/18 06:59 18:59 Intake Total 720 Output Total 1000 Balance -280 - Medications Medications: Current Medications Alprazolam (Xanax) 1 mg PO BID SHAHEED; Protocol Last Admin: 08/07/18 18:37 Dose: 1 mg Clotrimazole (Lotrimin 1%) 0 gm TOP BID [facility] Last Admin: 08/07/18 18:39 Dose: 1 % Dabigatran (Pradaxa) 150 mg PO BID SHAHEED; Protocol Last Admin: 08/07/18 18:35 Dose: 150 mg Furosemide (Lasix) 80 mg IVP DAILY [facility] Last Admin: 08/07/18 09:25 Dose: 80 mg Ceftriaxone Sodium (Rocephin 1 Gram Ivpb) 1 gm in 100 mls @ 100 mls/hr IVPB DAILY [facility]; Protocol Last Admin: 08/07/18 09:26 Dose: 100 mls/hr Vancomycin HCl (Vancomycin 1gm) 1 gm in 250 mls @ 167 mls/hr IVPB Q12 [facility]; Protocol Last Admin: 08/07/18 22:35 Dose: 167 mls/hr Insulin Human Regular (Humulin R Low) 0 units SC ACHS SHAHEED; Protocol Last Admin: 08/07/18 23:12 Dose: Not Given Metoprolol Tartrate (Lopressor) 25 mg PO BID [facility] Last Admin: 08/07/18 18:35 Dose: 25 mg Oxycodone/Acetaminophen (Percocet 10/325 Mg Tab) 1 tab PO Q4H [facility]ED Last Admin: 08/08/18 07:06 Dose: 1 tab - Labs Labs: 08/07/18 06:50 08/07/18 06:50 PT 15.1 SECONDS (9.4-12.5) H 08/04/18 13:00 INR 1.31 08/04/18 13:00 APTT 31.3 Seconds (25.1-36.5) 08/04/18 13:00 - Constitutional Appears: No Acute Distress - Head Exam Head Exam: ATRAUMATIC, NORMAL INSPECTION, NORMOCEPHALIC - Eye Exam Eye Exam: EOMI, Normal appearance, PERRL. absent: Scleral icterus Pupil Exam: NORMAL ACCOMODATION - ENT Exam ENT Exam: Mucous Membranes Moist - Neck Exam Additional comments: supple - Respiratory Exam Respiratory Exam: Clear to Ausculation Bilateral, NORMAL BREATHING PATTERN. absent: Rales, Rhonchi, Wheezes - Cardiovascular Exam Cardiovascular Exam: REGULAR RHYTHM, +S1, +S2. absent: Murmur - GI/Abdominal Exam GI & Abdominal Exam: Soft, Normal Bowel Sounds. absent: Guarding, Rigid, Tenderness - Extremities Exam Extremities Exam: Pedal Edema. absent: Calf Tenderness Additional comments: dressing LE b/l d/c/i - Back Exam Back Exam: absent: CVA tenderness (L), CVA tenderness (R) - Neurological Exam Neurological Exam: Alert, Awake, Oriented x3 - Psychiatric Exam Psychiatric exam: Normal Affect, Normal Mood - Skin Skin Exam: Normal Color, Warm Assessment and Plan - Assessment and Plan (Free Text) Plan: Mr Doan, 58 M with PMH of lower extremity cellulitis, chronic lower extremity edema with venous ulcers, CAD, HTN, atrial fibrillation on pradaxa, DM, JOSELINE, morbid obesity with BMI 42 came in to [facility] complaining of worsening of chronic b/1 leg pain. He came back from rehab 1 week ago for b/l leg cellulitis, completed PO zyvox and PO levaquin x 7 days. . B/l LE Cellulitis (SIRS 1/4 for HR>90) with small open wounds with MRSA, klebsiella. Osteomyelitis had ruled out. Hx LLE wound cx grew Klebsiella oxytoca, stenotrophomona maltophilia Hx R wound Cx grew Acinetobecter Baumannii and MRSA. Finished PO zyvox and PO levaquin x 7 days. Paroximal A-fib on pradaxa, (Afib RVR on admission, resolved) DM (A1C 5.9) Meropenem adverse effect of pain Tinea corporis under abdominal pannus Plan - Wounds dressing with Maxorb, DSD, LARY per podiatry - vancomycin IV and ceftriaxone (day 3) per wound culture sensitivity panel - When pt is ready for discharge by primary team, pt can be switched to Bactr im DS 1 tab BID x 10 days and follow up at wound center - contact precaution for MRSA - pain control per primary team - Topical clotrimazole cream Imaging/Culture - Deep Wound culture (08/05/18): MRSA, Klebsiella - Deep Wound culture (07/28/18): MRSA, enterococcus, klebsiella - blood culture (08/04) 1/2 bottles grows coagulase negative staph - blood culture (08/06): neg x 1d - R foot x-ray: no evidence of OM - L foot x-ray: area of radiolucency to distal 1st proximal phalanx - MRI (08/01): OM cannot excluded due to artifact. Recommend repeat - MRI (08/07): No osteomyelitis - ESR 74 - CRP 30 S/R/D/w Dr Coker <Anastacio Coker S - Last Filed: 08/08/18 22:45> Objective - Vital Signs/Intake and Output Vital Signs (last 24 hours): Temp Pulse Resp BP Pulse Ox 97.5 F L 84 20 124/66 93 L 08/08/18 14:00 08/08/18 17:42 08/08/18 14:00 08/08/18 17:42 08/08/18 14:00 - Medications Medications: Current Medications Alprazolam (Xanax) 1 mg PO BID SHAHEED; Protocol Last Admin: 08/08/18 17:45 Dose: 1 mg Clotrimazole (Lotrimin 1%) 0 gm TOP BID [facility] Last Admin: 08/08/18 17:00 Dose: 1 applic Dabigatran (Pradaxa) 150 mg PO BID SHAHEED; Protocol Last Admin: 08/08/18 17:42 Dose: 150 mg Furosemide (Lasix) 80 mg IVP DAILY [facility] Last Admin: 08/08/18 10:35 Dose: 80 mg Ceftriaxone Sodium (Rocephin 1 Gram Ivpb) 1 gm in 100 mls @ 100 mls/hr IVPB DAILY [facility]; Protocol Last Admin: 08/08/18 10:36 Dose: 100 mls/hr Vancomycin HCl (Vancomycin 1gm) 1 gm in 250 mls @ 167 mls/hr IVPB Q12 [facility]; Protocol Last Admin: 08/08/18 21:27 Dose: 167 mls/hr Insulin Human Regular (Humulin R Low) 0 units SC ACHS SHAHEED; Protocol Last Admin: 08/08/18 17:35 Dose: Not Given Metoprolol Tartrate (Lopressor) 25 mg PO BID [facility] Last Admin: 08/08/18 17:42 Dose: 25 mg Oxycodone/Acetaminophen (Percocet 10/325 Mg Tab) 1 tab PO Q4H [facility] Last Admin: 08/08/18 21:25 Dose: 1 tab - Labs Labs: 08/07/18 06:50 08/07/18 06:50 PT 15.1 SECONDS (9.4-12.5) H 08/04/18 13:00 INR 1.31 08/04/18 13:00 APTT 31.3 Seconds (25.1-36.5) 08/04/18 13:00 Assessment and Plan - Assessment and Plan (Free Text) Plan: Infectious diseases Attending Physician Attestation Patient seen and examined, discussed with medical services coordinator. I have reviewed the patient's history of present illness, past medical, social, personal and family histories, pertinent physical exam findings, course so far in this hospital admission, pertinent laboratory and imaging results. I agree with the above findings, assessment and plan. In addition, continue Vancomycin and Rocephin for MRSA and Klebsiella left foot cellulitis with no evidence of osteomyelitis on MRI of the left foot. Can switch to PO Bactrim to complete the total 7-10 day course.
[2018-08-08] MEDS: Clotrimazole 1% Cream(30 gm) TOP SCH ×2 (10:00→17:00)
[2018-08-08 10:16] VITALS: RESP 20
[2018-08-08] MEDS: Insulin Reg-LOW-Coverage SC SCH ×3 (10:35→17:35)
[2018-08-08] MEDS: cefTRIAXone 1 gm 1 GM/100 ML BAG IVPB SCH (10:36)
[2018-08-08] MEDS: Vancomycin 1gm in NS 250ml 1 GM/250 ML BAG IVPB SCH ×2 (10:37→21:27)
--- NOTE | 2018-08-08 11:08 | CP.PCM.PN ---
Subjective - Date & Time of Evaluation Date of Evaluation: 08/08/18 Time of Evaluation: 11:00 - Subjective Subjective: OOB in chair, NAD, denies chest pain, no SOB Objective - Vital Signs/Intake and Output Vital Signs (last 24 hours): Temp Pulse Resp BP Pulse Ox 97.2 F L 85 20 130/67 97 08/08/18 07:30 08/08/18 10:36 08/08/18 07:30 08/08/18 10:36 08/08/18 07:30 Intake and Output: 08/08/18 08/08/18 06:59 18:59 Intake Total 720 Output Total 1000 Balance -280 - Medications Medications: Current Medications Alprazolam (Xanax) 1 mg PO BID [facility]; Protocol Last Admin: 08/08/18 10:37 Dose: 1 mg Clotrimazole (Lotrimin 1%) 0 gm TOP BID [facility] Last Admin: 08/07/18 18:39 Dose: 1 % Dabigatran (Pradaxa) 150 mg PO BID [facility]; Protocol Last Admin: 08/08/18 10:36 Dose: 150 mg Furosemide (Lasix) 80 mg IVP DAILY [facility] Last Admin: 08/08/18 10:35 Dose: 80 mg Ceftriaxone Sodium (Rocephin 1 Gram Ivpb) 1 gm in 100 mls @ 100 mls/hr IVPB DAILY [facility]; Protocol Last Admin: 08/08/18 10:36 Dose: 100 mls/hr Vancomycin HCl (Vancomycin 1gm) 1 gm in 250 mls @ 167 mls/hr IVPB Q12 [facility]; Protocol Last Admin: 08/08/18 10:37 Dose: 167 mls/hr Insulin Human Regular (Humulin R Low) 0 units SC ACHS SHAHEED; Protocol Last Admin: 08/08/18 10:35 Dose: Not Given Metoprolol Tartrate (Lopressor) 25 mg PO BID [facility] Last Admin: 08/08/18 10:36 Dose: 25 mg Oxycodone/Acetaminophen (Percocet 10/325 Mg Tab) 1 tab PO Q4H [facility] Last Admin: 08/08/18 10:30 Dose: Not Given - Labs Labs: 08/07/18 06:50 08/07/18 06:50 PT 15.1 SECONDS (9.4-12.5) H 08/04/18 13:00 INR 1.31 08/04/18 13:00 APTT 31.3 Seconds (25.1-36.5) 08/04/18 13:00 - Respiratory Exam Respiratory Exam: Clear to Ausculation Bilateral, NORMAL BREATHING PATTERN - Cardiovascular Exam Cardiovascular Exam: REGULAR RHYTHM - GI/Abdominal Exam GI & Abdominal Exam: Soft, Normal Bowel Sounds - Neurological Exam Neurological Exam: Alert, Awake Assessment and Plan (1) Cellulitis Status: Acute (2) CHF (congestive heart failure) Status: Chronic (3) COPD (chronic obstructive pulmonary disease) Status: Chronic (4) Diabetes Status: Chronic (5) Paroxysmal A-fib Status: Chronic - Assessment and Plan (Free Text) Plan: continue wound care/IV Abx. Lasix IV, ID/wound care follow-up, MRI foot neg for OM
[2018-08-09] MEDS: Oxycodone/Acetaminophen 10/325 mg Tab PO SCH ×3 (06:08→09:30)
[2018-08-09] MEDS: Insulin Reg-LOW-Coverage SC SCH ×2 (06:09→09:22)
[2018-08-09 07:59] VITALS: BP 109/67; PULSE 90; TEMP 97.2; O2SAT 160
[2018-08-09 08:51] LABS: BASO # 0.17 K/mm3 (0.0-2.0); EOS # 0.6 (0.0-0.7); EOS % 7.7 % (1.5-5.0); GRAN # 5.6 (1.4-6.5); GRAN % 67.2 % (50.0-68.0); LYMPH # 1.3 (1.2-3.4); LYMPH % 15.8 % (22.0-35.0); MEAN CELL VOLUME 91.9 fl (80.0-105.0); MEAN CORPUSCULAR HEMOGLOBIN 27.9 pg (25.0-35.0); MEAN CORPUSCULAR HGB CONC 30.3 g/dl (31.0-37.0); MEAN PLATELET VOLUME 8.9 fl (7.0-11.0); MONO # 0.6 (0.1-0.6); MONO % 7.3 % (1.0-6.0); RBC 3.59 10^6/uL (3.5-6.1); RED CELL DISTRIBUTION WIDTH 16.4 % (11.5-14.5); WHITE BLOOD COUNT 8.3 10^3/uL (4.5-11.0)
[2018-08-09 09:24] LABS: ALB/GLOB RATIO 1.1 (1.1-1.8); ALBUMIN 4.1 g/dL (3.0-4.8); ALT/SGPT 22 U/L (7-56); AST/SGOT 43 U/L (17-59); BLOOD UREA NITROGEN 17 mg/dL (7-21); CALCIUM 8.9 mg/dL (8.4-10.5); GFR NON-AFRICAN AMERICAN > 60
[2018-08-09] MEDS: Clotrimazole 1% Cream(30 gm) TOP SCH (09:29)
[2018-08-09] MEDS: cefTRIAXone 1 gm 1 GM/100 ML BAG IVPB SCH (09:30)
[2018-08-09] MEDS: Vancomycin 1gm in NS 250ml 1 GM/250 ML BAG IVPB SCH (09:31)
--- NOTE | 2018-08-09 14:59 | PN ---
DATE: 08/09/2018 SUBJECTIVE: The patient is in bed, in no acute distress, nontoxic. PHYSICAL EXAMINATION: VITAL SIGNS: Temperature is 97, blood pressure is 109/60, respiratory rate of 20, heart rate of 88. Examination of HEENT is unremarkable. NECK: Supple. LUNGS: Have decreased breath sounds. HEART: Normal S1, S2. ABDOMEN: Soft. LABORATORY EXAMINATION: Reveals a white count of 8.7, hemoglobin of 10. Coagulation is noted. Chemistries reveal a BUN of 17, creatinine of 0.9. C-reactive protein is 30. The patient had a MRI of the foot, which was reported to be no evidence of osteomyelitis by Dr. Roc Tapia. ASSESSMENT AND PLAN: A 58-year-old male who was seen earlier this morning in 564, bed 2 who wants to be discharged with lower extremity venous ulcers, coronary artery disease, hypertension, atrial fibrillation, diabetes, morbid obesity with a BMI of 42, obstructive sleep apnea with bilateral lower extremity cellulitis. Currently, on vanco day number 4, maybe able to switch to p.o. Bactrim to complete for 7 days with Klebsiella and MRSA from the wound culture, both sensitive to Bactrim in a patient who has not had any renal issues, although in the past, he has had renal issues.. We will follow with you. Erik Alexander MD
== END 2018-08-09 14:40 | disposition home or self-care (01) | DRG 277 ==
LOC: ED 11:58 → ERH 14:48 → 5RNO 21:28
PROVIDERS: ADMIT Internal Medicine; ATTEND Internal Medicine
DX: L03.115 Cellulitis of right lower limb (principal); E11.40 Type 2 diabetes mellitus with diabetic neuropathy, unspecified; J44.9 Chronic obstructive pulmonary disease, unspecified; I11.0 Hypertensive heart disease with heart failure; I50.9 Heart failure, unspecified; E11.621 Type 2 diabetes mellitus with foot ulcer; L97.529 Non-pressure chronic ulcer of other part of left foot with unspecified severity; L03.116 Cellulitis of left lower limb; I87.2 Venous insufficiency (chronic) (peripheral); I48.0 Paroxysmal atrial fibrillation; I25.10 Atherosclerotic heart disease of native coronary artery without angina pectoris; E66.01 Morbid (severe) obesity due to excess calories; Z68.41 Body mass index [BMI] 40.0-44.9, adult; G47.33 Obstructive sleep apnea (adult) (pediatric); Z87.891 Personal history of nicotine dependence

== ENCOUNTER 2018-09-11 17:46 | Inpatient (IN) | payer OTHER ==
[2018-09-11 17:47] VITALS: BMI 43.4
--- NOTE | 2018-09-11 18:47 | RAD ---
Date of service: 09/11/2018 HISTORY: SOB/?CHF COMPARISON: Chest radiograph dated 08/04/2018. FINDINGS: LUNGS: No active pulmonary disease. PLEURA: No significant pleural effusion identified, no pneumothorax apparent. CARDIOVASCULAR: Aortic atherosclerotic calcifications. Cardiomediastinal silhouette stably enlarged. OSSEOUS STRUCTURES: Unchanged. VISUALIZED UPPER ABDOMEN: Normal. OTHER FINDINGS: None. IMPRESSION: No active disease.
[2018-09-11 19:18] LABS: BASO # 0.12 K/mm3 (0.0-2.0); BASO % 1.2 % (0.0-3.0); EOS # 0.3 (0.0-0.7); GRAN # 8.15 (1.4-6.5); GRAN % 78.7 % (50.0-68.0); HEMOGLOBIN 9.9 g/dL (14.0-18.0); LYMPH # 1.1 (1.2-3.4); LYMPH % 10.9 % (22.0-35.0); MEAN CELL VOLUME 89.9 fl (80.0-105.0); MEAN CORPUSCULAR HEMOGLOBIN 27.7 pg (25.0-35.0); MEAN CORPUSCULAR HGB CONC 30.8 g/dl (31.0-37.0); MEAN PLATELET VOLUME 9.2 fl (7.0-11.0); MONO # 0.6 (0.1-0.6); MONO % 6.2 % (1.0-6.0); RBC 3.57 10^6/uL (3.5-6.1); RED CELL DISTRIBUTION WIDTH 16.2 % (11.5-14.5); WHITE BLOOD COUNT 10.4 10^3/uL (4.5-11.0)
[2018-09-11 19:20] LABS: ALB/GLOB RATIO 1.2 (1.1-1.8); ALBUMIN 4.2 g/dL (3.0-4.8); ALT/SGPT 20 U/L (7-56); AST/SGOT 23 U/L (17-59); BLOOD UREA NITROGEN 19 mg/dL (7-21); CALCIUM 9.2 mg/dL (8.4-10.5); GFR NON-AFRICAN AMERICAN > 60
[2018-09-11 19:21] LABS: INR 1.71; PARTIAL THROMBOPLASTIN TIME 58.1 Seconds (26.9-38.3)
[2018-09-11 19:32] LABS: B-TYPE NATRIURETIC PEPTIDE 1700 pg/mL (0-450); TROPONIN I < 0.01 ng/mL
--- NOTE | 2018-09-11 19:41 | ED PDOC ---
Arrival/HPI - General Chief Complaint: Shortness Of Breath Time Seen by Provider: 09/11/18 18:11 Historian: Patient - History of Present Illness Narrative History of Present Illness (Text): 09/11/18 19:39 A 58 year old male, whose past medical history includes CHF, presents to the emergency department complaining of increasing shortness of breath over the past several days. Patient reports also his lower extremities are more swollen than baseline. 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 Patient denies any chest pain, fever, cough, or any other complaints at this time. PMD: Dr. Leiva Past Medical History - Provider Review Nursing Documentation Reviewed: Yes - Infectious Disease Hx of Infectious Diseases: None - Tetanus Immunization Tetanus Immunization: Unknown - Cardiac Hx Cardiac Disorders: Yes (Afib, CAD) Hx Cardiac Arrhythmia: Yes (afib) Hx Peripheral Edema: Yes (+2 pitting ble) Other/Comment: chronic venous insufficiency - Pulmonary Other/Comment: had the sleep study pt thinks they told him he had sleep apnea went to follow up with appt but "there ws no one there, the place was gone." pt stated. Couldn't remember the name of the place - Neurological Hx Neurological Disorder: Yes Other/Comment: tremors - HEENT Hx HEENT Disorder: Yes Other/Comment: glasses - Renal Hx Renal Disorder: Yes Hx Renal Failure: Yes (ARF 11/2014) Other/Comment: acute hemodialysis 11/2016, hd cath implanted by dr martin 12/12/2014 to r jugular for acute hd - Endocrine/Metabolic Hx Diabetes Mellitus Type 2: Yes - Hematological/Oncological Hx Blood Disorders: No - Integumentary Hx Dermatological Disorder: No Other/Comment: cellulitis on sudhir lower ext. Chronic venous insufficiency (previous triage) - Musculoskeletal/Rheumatological Hx Musculoskeletal Disorders: Yes (chronic ble leg pain) Hx Unsteady Gait: Yes (walker) - Gastrointestinal Hx Gastrointestinal Disorders: Yes (obese, hiatal hernia) Other/Comment: scheduled for endo 05/26/18 - Genitourinary/Gynecological Hx Genitourinary Disorders: No - Psychiatric Hx Psychophysiologic Disorder: Yes Hx Anxiety: Yes Hx Substance Use: No - Surgical History Other/Comment: multiple leg sx's including skin grafts done by various dr's, pi cc linus insertion kate 06/2015 and to maria guadalupe 09/25/16 - Anesthesia Hx Anesthesia: Yes Hx Anesthesia Reactions: No Hx Malignant Hyperthermia: No - Suicidal Assessment Feels Threatened In Home Enviroment: No Family/Social History - Physician Review Nursing Documentation Reviewed: Yes Family/Social History: No Known Family HX Smoking Status: Former Smoker Hx Alcohol Use: No (Pt stopped drinking.) Hx Substance Use: No Hx Substance Use Treatment: No Allergies/Home Meds Allergies/Adverse Reactions: Allergies meropenem [From Merrem] Adverse Reaction (Verified 08/04/18 12:15) PAIN Home Medications: Home Meds Medication Instructions Recorded Confirmed Albuterol HFA [Ventolin HFA 90 1 puff IH BID PRN 09/17/16 08/04/18 mcg/actuation (8 g)] Furosemide [Lasix] 1 tab PO BID 09/17/16 08/04/18 Oxycodone HCl/Acetaminophen 1 tab PO Q4H PRN 09/17/16 08/04/18 [Percocet 10-325 mg Tablet] metOLazone [Zaroxolyn] 1 tab PO 2XW 09/17/16 08/04/18 Review of Systems - Physician Review All systems were reviewed & negative as marked: Yes - Review of Systems Constitutional: absent: Fevers Respiratory: SOB (increasing). absent: Cough Cardiovascular: absent: Chest Pain Musculoskeletal: Other (LE more swollen than baseline) Physical Exam Vital Signs Reviewed: Yes Vital Signs Temp Pulse Resp BP Pulse Ox 09/11/18 17:50 98.0 F 107 H 18 115/69 97 Temperature: Afebrile Blood Pressure: Normal Pulse: Regular Respiratory Rate: Normal Appearance: Positive for: Well-Appearing, Non-Toxic, Comfortable Pain Distress: None Mental Status: Positive for: Alert and Oriented X 3 - Systems Exam Head: Present: Atraumatic, Normocephalic Pupils: Present: PERRL Extroacular Muscles: Present: EOMI Conjunctiva: Present: Normal Mouth: Present: Moist Mucous Membranes Neck: Present: Normal Range of Motion Respiratory/Chest: Present: Clear to Auscultation, Good Air Exchange. No: Respiratory Distress, Accessory Muscle Use Cardiovascular: Present: Regular Rate and Rhythm, Normal S1, S2. No: Murmurs Abdomen: No: Tenderness, Distention, Peritoneal Signs Back: Present: Normal Inspection Upper Extremity: Present: Normal Inspection. No: Cyanosis, Edema Lower Extremity: Present: Edema (pitting edema bilaterally, dressed bilaterally.) Neurological: Present: GCS=15, CN II-XII Intact, Speech Normal Skin: Present: Warm, Dry, Normal Color. No: Rashes Psychiatric: Present: Alert, Oriented x 3, Normal Insight, Normal Concentration Medical Decision Making ED Course and Treatment: 09/11/18 19:40 Impression: 58 year old male with increasing shortness of breath and increased swelling to LE bilaterally. Plan: -- EKG -- Chest X-ray -- Labs -- Reassess and disposition Progress Notes: EKG: Ordered, reviewed, and independently interpreted the EKG. Rate : 120 BPM Rhythm : Sinus tachycardia. Interpretation : No ST-segment elevations or depressions, no T-wave inversions, normal intervals. Comparison : No previous EKG for comparison. 09/11/2018 18:44 Chest X-ray IMPRESSION: No active disease. Dictator: Jeanmarie Alexander MD - Lab Interpretations Lab Results: PT 19.0 SECONDS (9.4-12.5) H 09/11/18 19:00 INR 1.71 09/11/18 19:00 APTT 58.1 Seconds (26.9-38.3) H 09/11/18 19:00 Troponin I < 0.01 ng/mL 09/11/18 19:00 NT-Pro-B Natriuret Pep 1700 pg/mL (0-450) H 09/11/18 19:00 Total Bilirubin 0.5 mg/dL (0.2-1.3) 09/11/18 19:00 AST 23 U/L (17-59) 09/11/18 19:00 ALT 20 U/L (7-56) 09/11/18 19:00 Alkaline Phosphatase 71 U/L (38-126) 09/11/18 19:00 Total Protein 7.6 g/dL (5.8-8.3) 09/11/18 19:00 Albumin 4.2 g/dL (3.0-4.8) 09/11/18 19:00 Globulin 3.5 gm/dL 09/11/18 19:00 Albumin/Globulin Ratio 1.2 (1.1-1.8) 09/11/18 19:00 I have reviewed the lab results: Yes - RAD Interpretation Radiology Orders: 09/11/18 18:17 CHEST PORTABLE [RAD] Stat - Scribe Statement The provider has reviewed the documentation as recorded by the Radha Mathur Provider Lauraibben Attestation: All medical record entries made by the Lauraibe were at my direction and personall y dictated by me. I have reviewed the chart and agree that the record accurately reflects my personal performance of the history, physical exam, medical decision making, and the department course for this patient. I have also personally directed, reviewed, and agree with the discharge instructions and disposition. Disposition/Present on Arrival - Present on Arrival Any Indicators Present on Arrival: No History of DVT/PE: No History of Uncontrolled Diabetes: No Urinary Catheter: No History of Decub. Ulcer: No History Surgical Site Infection Following: None - Disposition Have Diagnosis and Disposition been Completed?: Yes Diagnosis: CHF exacerbation, Leg edema Disposition: HOSPITALIZED Disposition Time: 19:20 Condition: FAIR
[2018-09-12] MEDS ORDERED: Oxycodone/Acetaminophen 10/325 mg Tab PO ONE (00:12)
--- NOTE | 2018-09-12 00:19 | CARD ---
APPROVED REPORT Date of service: 09/11/2018 EKG Measurement Heart [id number] <Conclusion> Atrial fibrillation with a rapid ventricular response Nonspecific ST and T wave abnormality Abnormal ECG
[2018-09-12] MEDS ORDERED: Oxycodone/Acetaminophen 5/325 mg Tab PO STA (08:41)
[2018-09-12] MEDS ORDERED: Magnesium Sulfate 2 gm/50 ml 2 GM/50 ML BAG IVPB ONE (08:43)
[2018-09-12] MEDS: diltiaZEM 240 mg/24 Hours CD Cap PO SCH (09:40)
[2018-09-12] MEDS: Potassium Chloride 20 mEq ER Tab PO SCH (09:40)
[2018-09-12] MEDS: Linezolid 600 mg in D5W 300 ml 600 MG/300 ML BAG IVPB SCH ×2 (11:13→22:09)
--- NOTE | 2018-09-12 12:12 | HP ---
DATE OF EXAM: 09/12/2018 HISTORY OF PRESENT ILLNESS: The patient is a 58-year-old male admitted through the emergency department on 09/11/2018 with complaints of increased swelling of the legs and shortness of breath. The patient has a history of CHF and chronic edema with an infected stasis ulcers of the lower extremities bilaterally. Treated by Dr. Meadows. The patient denies any fever or chills. There is no increased leg pain. The patient has been empirically started on IV antibiotics. Infectious Disease consultation has been called with Dr. Alexander as well as wound care management consultation by Dr. Meadows and Cardiology consultation by Dr. Vargas. PAST MEDICAL HISTORY: Includes hypertension, hypertensive cardiovascular disease and congestive heart failure, paroxysmal atrial fibrillation, COPD, obstructive sleep apnea with morbid obesity, nonobstructive coronary artery disease and type 2 diabetes mellitus with diabetic neuropathy. PAST SURGICAL HISTORY: Includes chronic venous insufficiency with chronic venous stasis ulcers of the lower extremities with recurrent cellulitis. CURRENT MEDICATIONS: Include Lasix 80 mg daily, Zaroxolyn 5 mg every other day, Lipitor 80 mg daily, metoprolol 25 mg twice daily, Pradaxa 150 mg twice daily, Protonix 40 mg daily, K-Dur 20 mEq daily, Percocet 10/325 1 tablet every 6 hours and Xanax 1 mg twice daily for anxiety disorder. SOCIAL HISTORY: The patient has a history of tobacco and alcohol use in the past. He currently does not use alcohol or tobacco. He lives alone. He is independent with ADLs and IADLs. Family history is noncontributory. ALLERGIES: THE PATIENT HAS NO KNOWN ALLERGIES. REVIEW OF SYSTEMS: The patient denies any chest pain. He denies any acute shortness of breath. He complains of some dyspnea on mild to moderate exertion. There is no fever, no chills. No nausea, no vomiting and diarrhea. No melena, no bright red blood per rectum and no jaundice. PHYSICAL EXAMINATION: GENERAL: The patient is a well-developed, somewhat obese male in no acute distress. VITAL SIGNS: Blood pressure 125/65, pulse 117, temperature 98, respiratory rate 18. HEENT: Head is normocephalic, atraumatic. Pupils equal, round, reactive to light. Extraocular movements intact. NECK: Supple with no thyromegaly. No carotid bruit. No adenopathy. LUNGS: Show a few bibasilar crackles. HEART: Regular rate and rhythm. ABDOMEN: Soft, obese, nontender. Bowel sounds are normoactive. EXTREMITIES: Show of 3-4+ brawny edema of the lower extremities to the knees bilaterally. Leg dressings are clean and intact. NEUROLOGIC: The patient is awake and oriented x3 without focal motor deficits. SKIN: Warm and dry. LABORATORY DATA: WBCs 10.4, hemoglobin 9.9, hematocrit 32.1, platelets 404. Sodium 137, potassium 3.8, chloride 98, CO2 of 29, BUN 19, creatinine 1.1, glucose is 87, magnesium is 1.5. BNP is elevated at 1700. Troponin is less than 0.01. Chest x-ray Shows no active disease. IMPRESSION: 1. Hypertension, hypertensive cardiovascular disease and congestive heart failure. 2. Chronic venous stasis ulcers with recurrent cellulitis of the lower extremities. 3. Chronic obstructive pulmonary disease. 4. Obstructive sleep apnea. 5. Paroxysmal atrial fibrillation. 6. Nonobstructive coronary artery disease. 7. Type 2 diabetes mellitus with diabetic neuropathy. 8. Morbid obesity. PLAN: The patient is admitted to the remote telemetry unit. Infectious Disease, Cardiology and Wound Care/Podiatry consultations have been requested. We will give the patient IV Lasix 80 mg daily, monitor electrolytes, regular insulin coverage with Accu-Chek four times daily, wound care and social work for discharge planning. MELCHOR Sousa MD
[2018-09-12] MEDS: Insulin Reg-LOW-Coverage SC SCH ×3 (12:28→21:51)
--- NOTE | 2018-09-12 12:43 | CP.PCM.CON ---
<Ivan Fontana - Last Filed: 09/12/18 12:35> History of Present Illness - History of Present Illness History of Present Illness: Podiatry consult note for Dr. Kaur 58M with pmhx of HTN, CHF, afib, COPD, JOSELINE, DM seen and evaluated with Dr. Kaur for b/l LE edema and ulcerations. States that he had seen Dr. Meadows yesterday and she told him to come to the ED because his legs appeared infected. States he has mild pain in his legs today and that they were cleaned yesterday but he still sees some drainage. Denies N/V/F/C/SOB/CP today and has no other acute complaints. PMHx: above PSHx: no hx of amputations All: meropenem Past Patient History - Infectious Disease Hx of Infectious Diseases: None - Tetanus Immunizations Tetanus Immunization: Unknown - Past Social History Smoking Status: Former Smoker - CARDIAC Hx Cardiac Disorders: Yes (Afib, CAD) Hx Cardia Arrhythmia: Yes (afib) Hx Peripheral Edema: Yes (+2 pitting ble) Other/Comment: chronic venous insufficiency - PULMONARY Other/Comment: had the sleep study pt thinks they told him he had sleep apnea went to follow up with appt but "there ws no one there, the place was gone." pt stated. Couldn't remember the name of the place - NEUROLOGICAL Hx Neurological Disorder: Yes Other/Comment: tremors - HEENT Hx HEENT Problems: Yes Other/Comment: glasses - RENAL Hx Chronic Kidney Disease: Yes Hx Renal Failure: Yes (ARF 11/2014) Other/Comment: acute hemodialysis 11/2016, hd cath implanted by dr martin 12/12/2014 to r jugular for acute hd - ENDOCRINE/METABOLIC Hx Diabetes Mellitus Type 2: Yes - HEMATOLOGICAL/ONCOLOGICAL Hx Blood Disorders: No - INTEGUMENTARY Hx Dermatological Problems: No Other/Comment: cellulitis on sudhir lower ext. Chronic venous insufficiency (pre vious triage) - MUSCULOSKELETAL/RHEUMATOLOGICAL Hx Musculoskeletal Disorders: Yes (chronic ble leg pain) Hx Falls: Yes Hx Unsteady Gait: Yes (walker) - GASTROINTESTINAL Hx Gastrointestinal Disorders: Yes (obese, hiatal hernia) Other/Comment: scheduled for endo 05/26/18 - GENITOURINARY/GYNECOLOGICAL Hx Genitourinary Disorders: No - PSYCHIATRIC Hx Psychophysiologic Disorder: Yes Hx Anxiety: Yes Hx Substance Use: No - SURGICAL HISTORY Other/Comment: multiple leg sx's including skin grafts done by various dr's, [facility] linus insertion kate 06/2015 and to maria guadalupe 09/25/16 - ANESTHESIA Hx Anesthesia: Yes Hx Anesthesia Reactions: No Hx Malignant Hyperthermia: No Meds Allergies/Adverse Reactions: Allergies Allergy/AdvReac Type Severity Reaction Status Date / Time meropenem [From Merrem] AdvReac PAIN Verified 08/04/18 12:15 - Medications Medications: Current Medications Alprazolam (Xanax) 1 mg PO TID PRN; Protocol PRN Reason: Anxiety Dabigatran (Pradaxa) 150 mg PO BID [facility]; Protocol Last Admin: 09/12/18 09:15 Dose: 150 mg Digoxin (Lanoxin) 0.25 mg PO 1400 [facility] Diltiazem HCl (Cardizem Cd) 240 mg PO DAILY [facility] Last Admin: 09/12/18 09:40 Dose: 240 mg Furosemide (Lasix) 80 mg IVP DAILY [facility] Last Admin: 09/12/18 09:15 Dose: 80 mg Linezolid (Zyvox 600mg/300ml D5w) 600 mg in 300 mls @ 200 mls/hr IVPB Q12 [facility]; Protocol Stop: 09/19/18 10:01 Last Admin: 09/12/18 11:13 Dose: 200 mls/hr Aztreonam (Azactam 1 Gm) 100 mls @ 100 mls/hr IVPB Q8 [facility]; Protocol Stop: 09/19/18 14:01 Insulin Human Regular (Humulin R Low) 0 units SC ACHS [facility]; Protocol Last Admin: 09/12/18 12:28 Dose: Not Given Oxycodone/Acetaminophen (Percocet 10/325 Mg Tab) 1 tab PO Q6H PRN PRN Reason: Pain, moderate (4-7) Potassium Chloride (K-Dur 20 Meq Er Tab) 20 meq PO BRK [facility] Last Admin: 09/12/18 09:40 Dose: 20 meq Physical Exam - Constitutional Appears: Well, Non-toxic, No Acute Distress - Head Exam Head Exam: ATRAUMATIC, NORMOCEPHALIC - Extremities Exam Additional comments: LE focused exam: Vasc: Nonpalpable DP and PT pulses secondary to chronic indurated edema b/l. Temperature gradient warm to warm b/l. +2 pitting edema bilaterally. Ortho: Diffuse tenderness upon palpation noted to bilateral LE. Neuro: Gross and protective sensation grossly intact b/l. Derm: Mild drainage from L hallux ulceration, mild wheeping at b/l LE. Rubor present to b/l lower extremities beginning from tibial tuberosity extending distally to digits, small breaks in the skin noted to b/l lower extremities, no malodor appreciated, no purulence, no fluctuance, no tracking, no tunneling, no undermining, no probe to bone, significant xerosis to b/l lower extremities. - Neurological Exam Neurological exam: Alert, Oriented x3 - Psychiatric Exam Psychiatric exam: Normal Affect, Normal Mood Results - Vital Signs Recent Vital Signs: Last Vital Signs Temp 97.6 F 09/12/18 12:00 Pulse 79 09/12/18 12:00 Resp 19 09/12/18 12:00 BP 126/89 09/12/18 12:00 Pulse Ox 97 09/12/18 06:00 - Labs Result Diagrams: 09/11/18 19:00 09/11/18 19:00 Labs: Laboratory Results - last 24 hr 09/11/18 09/11/18 09/11/18 19:00 19:00 19:00 WBC 10.4 D RBC 3.57 Hgb 9.9 L Hct 32.1 L MCV 89.9 MCH 27.7 MCHC 30.8 L RDW 16.2 H Plt Count 404 MPV 9.2 Gran % 78.7 H Lymph % (Auto) 10.9 L [place] % (Auto) 6.2 H Eos % (Auto) 3.0 Baso % (Auto) 1.2 Gran # 8.15 H Lymph # (Auto) 1.1 L [place] # (Auto) 0.6 Eos # (Auto) 0.3 Baso # (Auto) 0.12 PT 19.0 H INR 1.71 APTT 58.1 H Sodium 137 Potassium 3.8 Chloride 98 Carbon Dioxide 29 Anion Gap 14 BUN 19 Creatinine 1.1 Est GFR ( Amer) > 60 Est GFR (Non-Af Amer) > 60 POC Glucose (mg/dL) Random Glucose 98 Calcium 9.2 Magnesium 1.5 L Total Bilirubin 0.5 AST 23 ALT 20 Alkaline Phosphatase 71 Lactate Dehydrogenase 403 Total Creatine Kinase 72 Troponin I < 0.01 NT-Pro-B Natriuret Pep 1700 H Total Protein 7.6 Albumin 4.2 Globulin 3.5 Albumin/Globulin Ratio 1.2 Digoxin 09/12/18 09/12/18 07:46 10:50 WBC RBC Hgb Hct MCV MCH MCHC RDW Plt Count MPV Gran % Lymph % (Auto) [place] % (Auto) Eos % (Auto) Baso % (Auto) Gran # Lymph # (Auto) [place] # (Auto) Eos # (Auto) Baso # (Auto) PT INR APTT Sodium Potassium Chloride Carbon Dioxide Anion Gap BUN Creatinine Est GFR ( Amer) Est GFR (Non-Af Amer) POC Glucose (mg/dL) 87 Random Glucose Calcium Magnesium Total Bilirubin AST ALT Alkaline Phosphatase Lactate Dehydrogenase Total Creatine Kinase Troponin I NT-Pro-B Natriuret Pep Total Protein Albumin Globulin Albumin/Globulin Ratio Digoxin < 0.4 L Assessment & Plan - Assessment and Plan (Free Text) Assessment: 58M with pmhx of Afib, CHF, COPD, DM, HTN, and morbid obesity seen and evaluated for b/l LE edema and left hallux ulceration Plan: Patient seen and evaluated with Dr. Kaur Afebrile, WBC 10.4 Patients legs and left hallux ulceration cleansed with sterile saline and dressed with maxorb, DSD, ABD, and LARY Continue abx per medicine Podiatry will continue to follow while in house Thank you for the consult - Date & Time Date: 09/12/18 Time: 12:47 <Andres Kaur - Last Filed: 09/12/18 13:53> Meds - Medications Medications: Current Medications Alprazolam (Xanax) 1 mg PO TID PRN; Protocol PRN Reason: Anxiety Dabigatran (Pradaxa) 150 mg PO BID [facility]; Protocol Last Admin: 09/12/18 09:15 Dose: 150 mg Digoxin (Lanoxin) 0.25 mg PO 1400 [facility] Last Admin: 09/12/18 13:06 Dose: 0.25 mg Diltiazem HCl (Cardizem Cd) 240 mg PO DAILY [facility] Last Admin: 09/12/18 09:40 Dose: 240 mg Furosemide (Lasix) 80 mg IVP DAILY [facility] Last Admin: 09/12/18 09:15 Dose: 80 mg Linezolid (Zyvox 600mg/300ml D5w) 600 mg in 300 mls @ 200 mls/hr IVPB Q12 [facility]; Protocol Stop: 09/19/18 10:01 Last Admin: 09/12/18 11:13 Dose: 200 mls/hr Aztreonam (Azactam 1 Gm) 100 mls @ 100 mls/hr IVPB Q8 [facility]; Protocol Stop: 09/19/18 14:01 Last Admin: 09/12/18 13:05 Dose: 100 mls/hr Insulin Human Regular (Humulin R Low) 0 units SC ACHS [facility]; Protocol Last Admin: 09/12/18 12:28 Dose: Not Given Oxycodone/Acetaminophen (Percocet 10/325 Mg Tab) 1 tab PO Q6H PRN PRN Reason: Pain, moderate (4-7) Potassium Chloride (K-Dur 20 Meq Er Tab) 20 meq PO BRK [facility] Last Admin: 09/12/18 09:40 Dose: 20 meq Results - Vital Signs Recent Vital Signs: Last Vital Signs Temp 97.6 F 09/12/18 12:00 Pulse 79 09/12/18 12:00 Resp 19 09/12/18 12:00 BP 126/89 09/12/18 12:00 Pulse Ox 97 09/12/18 06:00 - Labs Result Diagrams: 09/11/18 19:00 09/11/18 19:00 Labs: Laboratory Results - last 24 hr 09/11/18 09/11/18 09/11/18 19:00 19:00 19:00 WBC 10.4 D RBC 3.57 Hgb 9.9 L Hct 32.1 L MCV 89.9 MCH 27.7 MCHC 30.8 L RDW 16.2 H Plt Count 404 MPV 9.2 Gran % 78.7 H Lymph % (Auto) 10.9 L [place] % (Auto) 6.2 H Eos % (Auto) 3.0 Baso % (Auto) 1.2 Gran # 8.15 H Lymph # (Auto) 1.1 L [place] # (Auto) 0.6 Eos # (Auto) 0.3 Baso # (Auto) 0.12 PT 19.0 H INR 1.71 APTT 58.1 H Sodium 137 Potassium 3.8 Chloride 98 Carbon Dioxide 29 Anion Gap 14 BUN 19 Creatinine 1.1 Est GFR ( Amer) > 60 Est GFR (Non-Af Amer) > 60 POC Glucose (mg/dL) Random Glucose 98 Calcium 9.2 Magnesium 1.5 L Total Bilirubin 0.5 AST 23 ALT 20 Alkaline Phosphatase 71 Lactate Dehydrogenase 403 Total Creatine Kinase 72 Troponin I < 0.01 NT-Pro-B Natriuret Pep 1700 H Total Protein 7.6 Albumin 4.2 Globulin 3.5 Albumin/Globulin Ratio 1.2 Digoxin 09/12/18 09/12/18 07:46 10:50 WBC RBC Hgb Hct MCV MCH MCHC RDW Plt Count MPV Gran % Lymph % (Auto) [place] % (Auto) Eos % (Auto) Baso % (Auto) Gran # Lymph # (Auto) [place] # (Auto) Eos # (Auto) Baso # (Auto) PT INR APTT Sodium Potassium Chloride Carbon Dioxide Anion Gap BUN Creatinine Est GFR ( Amer) Est GFR (Non-Af Amer) POC Glucose (mg/dL) 87 Random Glucose Calcium Magnesium Total Bilirubin AST ALT Alkaline Phosphatase Lactate Dehydrogenase Total Creatine Kinase Troponin I NT-Pro-B Natriuret Pep Total Protein Albumin Globulin Albumin/Globulin Ratio Digoxin < 0.4 L Attending/Attestation - Attestation I have personally seen and examined this patient.: Yes I have fully participated in the care of the patient.: Yes I have reviewed all pertinent clinical information: Yes
[2018-09-12] MEDS: Aztreonam 1 Gm in NS 100mL 100 ML IVPB SCH ×2 (13:05→22:09)
[2018-09-12] MEDS: Digoxin 250 mcg (0.25 mg) Tab PO SCH (13:06)
--- NOTE | 2018-09-12 13:15 | CP.PCM.CON ---
History of Present Illness - History of Present Illness History of Present Illness: 58 year old male with PMH of lower extremity cellulitis, chronic lower extremity edema, CAD, HTN, atrial fibrillation, DM, JOSELINE, morbid obesity with BMI 44 came in to [facility] complaining of increasing swelling of his lower extremities associated with pain and opening up of wounds in the lower extremities. He denies animal contacts, denies soaking his feet or legs in water, no nausea or vomiting, no fever or chills, no diarrhea, no dysuria. Patient is having shortness of breath especially on exertion. He denies chest pain currently, no headache or dizziness, no sore throat, no rhinorrhea, no cough currently. Infectious diseases consult is requested to further evaluate and manage. Review of Systems - Review of Systems All systems: reviewed and no additional remarkable complaints except (as per HPI) Past Patient History - Infectious Disease Hx of Infectious Diseases: None - Tetanus Immunizations Tetanus Immunization: Unknown - Past Social History Smoking Status: Former Smoker - CARDIAC Hx Cardiac Disorders: Yes (Afib, CAD) Hx Cardia Arrhythmia: Yes (afib) Hx Peripheral Edema: Yes (+2 pitting ble) Other/Comment: chronic venous insufficiency - PULMONARY Other/Comment: had the sleep study pt thinks they told him he had sleep apnea went to follow up with appt but "there ws no one there, the place was gone." pt stated. Couldn't remember the name of the place - NEUROLOGICAL Hx Neurological Disorder: Yes Other/Comment: tremors - HEENT Hx HEENT Problems: Yes Other/Comment: glasses - RENAL Hx Chronic Kidney Disease: Yes Hx Renal Failure: Yes (ARF 11/2014) Other/Comment: acute hemodialysis 11/2016, hd cath implanted by dr martin 12/12/2014 to r jugular for acute hd - ENDOCRINE/METABOLIC Hx Diabetes Mellitus Type 2: Yes - HEMATOLOGICAL/ONCOLOGICAL Hx Blood Disorders: No - INTEGUMENTARY Hx Dermatological Problems: No Other/Comment: cellulitis on sudhir lower ext. Chronic venous insufficiency (previous triage) - MUSCULOSKELETAL/RHEUMATOLOGICAL Hx Musculoskeletal Disorders: Yes (chronic ble leg pain) Hx Falls: Yes Hx Unsteady Gait: Yes (walker) - GASTROINTESTINAL Hx Gastrointestinal Disorders: Yes (obese, hiatal hernia) Other/Comment: scheduled for endo 05/26/18 - GENITOURINARY/GYNECOLOGICAL Hx Genitourinary Disorders: No - PSYCHIATRIC Hx Psychophysiologic Disorder: Yes Hx Anxiety: Yes Hx Substance Use: No - SURGICAL HISTORY Other/Comment: multiple leg sx's including skin grafts done by various dr's, [facility] linus insertion kate 06/2015 and to maria guadalupe 09/25/16 - ANESTHESIA Hx Anesthesia: Yes Hx Anesthesia Reactions: No Hx Malignant Hyperthermia: No Meds Allergies/Adverse Reactions: Allergies Allergy/AdvReac Type Severity Reaction Status Date / Time meropenem [From Merrem] AdvReac PAIN Verified 08/04/18 12:15 - Medications Medications: Current Medications Alprazolam (Xanax) 1 mg PO TID PRN; Protocol PRN Reason: Anxiety Dabigatran (Pradaxa) 150 mg PO BID [facility]; Protocol Last Admin: 09/12/18 09:15 Dose: 150 mg Digoxin (Lanoxin) 0.25 mg PO 1400 [facility] Diltiazem HCl (Cardizem Cd) 240 mg PO DAILY [facility] Last Admin: 09/12/18 09:40 Dose: 240 mg Furosemide (Lasix) 80 mg IVP DAILY [facility] Last Admin: 09/12/18 09:15 Dose: 80 mg Magnesium Sulfate (Magnesium Sulfate 2 Gm/50 Ml Water) 2 gm in 50 mls @ 25 mls/hr IVPB ONCE ONE Stop: 09/12/18 10:42 Last Admin: 09/12/18 08:57 Dose: 25 mls/hr Insulin Human Regular (Humulin R Low) 0 units SC ACHS [facility]; Protocol Oxycodone/Acetaminophen (Percocet 10/325 Mg Tab) 1 tab PO Q6H PRN PRN Reason: Pain, moderate (4-7) Potassium Chloride (K-Dur 20 Meq Er Tab) 20 meq PO BRK [facility] Last Admin: 09/12/18 09:40 Dose: 20 meq Physical Exam - Constitutional Appears: No Acute Distress, Chronically Ill - Head Exam Head Exam: NORMAL INSPECTION - ENT Exam ENT Exam: Mucous Membranes Moist - Neck Exam Neck exam: Negative for: Lymphadenopathy, Meningismus - Respiratory Exam Respiratory Exam: Decreased Breath Sounds - Cardiovascular Exam Cardiovascular Exam: +S1, +S2 - GI/Abdominal Exam GI & Abdominal Exam: Soft. absent: Tenderness - Extremities Exam Extremities exam: Positive for: pedal edema (bilateral, with some open wounds noted, but with dressings in place as well) Results - Vital Signs Recent Vital Signs: Last Vital Signs Temp 98.0 F 09/12/18 06:00 Pulse 117 H 09/12/18 09:40 Resp 18 09/12/18 06:00 BP 125/65 09/12/18 09:40 Pulse Ox 97 09/12/18 06:00 - Labs Result Diagrams: 09/11/18 19:00 09/11/18 19:00 Labs: Laboratory Results - last 24 hr 09/11/18 09/11/18 09/11/18 19:00 19:00 19:00 WBC 10.4 D RBC 3.57 Hgb 9.9 L Hct 32.1 L MCV 89.9 MCH 27.7 MCHC 30.8 L RDW 16.2 H Plt Count 404 MPV 9.2 Gran % 78.7 H Lymph % (Auto) 10.9 L [place] % (Auto) 6.2 H Eos % (Auto) 3.0 Baso % (Auto) 1.2 Gran # 8.15 H Lymph # (Auto) 1.1 L [place] # (Auto) 0.6 Eos # (Auto) 0.3 Baso # (Auto) 0.12 PT 19.0 H INR 1.71 APTT 58.1 H Sodium 137 Potassium 3.8 Chloride 98 Carbon Dioxide 29 Anion Gap 14 BUN 19 Creatinine 1.1 Est GFR ( Amer) > 60 Est GFR (Non-Af Amer) > 60 POC Glucose (mg/dL) Random Glucose 98 Calcium 9.2 Magnesium 1.5 L Total Bilirubin 0.5 AST 23 ALT 20 Alkaline Phosphatase 71 Lactate Dehydrogenase 403 Total Creatine Kinase 72 Troponin I < 0.01 NT-Pro-B Natriuret Pep 1700 H Total Protein 7.6 Albumin 4.2 Globulin 3.5 Albumin/Globulin Ratio 1.2 09/12/18 07:46 WBC RBC Hgb Hct MCV MCH MCHC RDW Plt Count MPV Gran % Lymph % (Auto) [place] % (Auto) Eos % (Auto) Baso % (Auto) Gran # Lymph # (Auto) [place] # (Auto) Eos # (Auto) Baso # (Auto) PT INR APTT Sodium Potassium Chloride Carbon Dioxide Anion Gap BUN Creatinine Est GFR ( Amer) Est GFR (Non-Af Amer) POC Glucose (mg/dL) 87 Random Glucose Calcium Magnesium Total Bilirubin AST ALT Alkaline Phosphatase Lactate Dehydrogenase Total Creatine Kinase Troponin I NT-Pro-B Natriuret Pep Total Protein Albumin Globulin Albumin/Globulin Ratio Assessment & Plan - Assessment and Plan (Free Text) Plan: Assessment consider bilateral lower extremity skin and skin structure infection with open wounds in this patient with chronic venous stasis chronic CHF history of severe sepsis with acute on chronic renal failure due to bilateral lower extremity cellulitis in this patient with chronic venous stasis and lymphedema and history of lower extremity cellulitis, slowly improving - grew Acinetobacter, MRSA and Stenotrophomonas chronic lower extremity edema CAD HTN atrial fibrillation DM JOSELINE morbid obesity with BMI 44 Plan started Zyvox and Azactam based on previous cultures and will follow up blood and wound cx follow up Podiatry evaluation and recommendations follow up recommendations of Cardiology for the CHF will monitor clinically
[2018-09-12] MEDS ORDERED: metOLazone 5 MG TAB PO STA (15:03)
[2018-09-12] MEDS: Oxycodone/Acetaminophen 10/325 mg Tab PO PRN ×2 (15:57→22:10)
--- NOTE | 2018-09-12 22:50 | CON ---
DATE: 09/12/2018 REASON FOR CONSULTATION: An cardiac evaluation, history of congestive heart failure, morbid obesity, COPD, and chronic atrial fibrillation. BRIEF CLINICAL HISTORY: This is a 58-year-old male with past medical history significant for chronic leg ulcer, hypertension, hyperlipidemia, chronic atrial fibrillation, COPD, history of morbid obesity, came in with complain of shortness of breath, the patient used to take Lasix at home, but getting progressively short of breath, suppose to increase the Lasix, but did not came in with one week history of previously worsening more shortness of breath. Denies any chest pain. Denies any palpitation. PAST MEDICAL HISTORY: Also significant for chronic atrial fibrillation, morbid obesity, obstructive sleep apnea, diabetes, hypertension, hyperlipidemia, COPD, and noncompliant with medication. PREVIOUS CARDIAC WORKUP: The patient had cardiac catheterization on 05/12/2014 that shows non-obstructive coronary artery disease, last echo done on 12/17/2016 that showed ejection fraction 55%, right ventricular functions moderately reduced, mild tricuspid regurgitation, RV systolic pressure of 22. Later on, the patient had MUGA scan done, that showed ejection fraction 64%, dated 12/18/2016. SOCIAL HISTORY: Denies any history of alcohol abuse. ALLERGIES: NO KNOWN DRUG ALLERGY. CURRENT MEDICATIONS: The patient is taking at home; metaxalone, Cardizem 240 mg daily, Januvia, metoprolol, insulin, digoxin, and Pradaxa. The patient has had repeat another echo on 04/23/2018 that showed ejection fraction within the normal limit, normal segmental wall motion, severe pulmonary hypertension, RV systolic pressure 71. Trace mitral regurgitation and tricuspid regurgitation noted. REVIEW OF SYSTEMS: As per HPI. PHYSICAL EXAMINATION: GENERAL: Height of the patient is 6 feet 3 inches, weight of the patient is 340 pounds, body mass index 45 kg per meter squared. VITAL SIGNS: Temperature afebrile, heart rate 96, blood pressure 126/89. HEENT: PERRLA. Extraocular muscles intact. NECK: Supple. No carotid bruit. No thyromegaly. CHEST: Clear to auscultation. HEART: S1 and S2 regular. ABDOMEN: Soft. EXTREMITIES: Clubbing and cyanosis negative. LABORATORY DATA: WBC 10.4, hemoglobin 9.8, hematocrit 32.1, and platelet count 404. Chemistry shows sodium 137, potassium 3.8, chloride 98, carbon dioxide 29, anion gap of 14, BUN 19, and creatinine 1.1. BNP 1700. Troponin 0.01. EKG shows atrial fibrillation rate of 120. IMPRESSION: A 58-year-old morbidly obese male with past medical history of chronic obstructive pulmonary disease, obstructive sleep apnea, chronic atrial fibrillation, chronic venous stasis of the leg,history of chronic obstructive pulmonary disease as mentioned, obstructive sleep apnea, history of cardiac catheterization in 2014, non-obstructive coronary artery disease, only limited distal left anterior descending diffuse disease. Last MUGA scan shows preserved left ventricular function. Most recent echo in 04/2018 shows ejection fraction well preserved, moderate pulmonary hypertension, right ventricular systolic pressure 71, [id number] pulmonary hypertension, mild mitral regurgitation. RECOMMENDATIONS: We will start IV Lasix with metaxalone. We will monitor electrolyte, lipid profile, TSH, hemoglobin A1c. We will follow with you. We will also resume back the Cardizem to control the heart rate, also resume back Pradaxa for atrial fibrillation. Thank you Dr. Leiva for providing us the opportunity in taking care of the patient, Franki Flores Jalen Vargas MD JENNIFER
[2018-09-13] MEDS: Aztreonam 1 Gm in NS 100mL 100 ML IVPB SCH ×3 (05:03→21:36)
[2018-09-13] MEDS: Oxycodone/Acetaminophen 10/325 mg Tab PO PRN ×2 (06:39→17:21)
[2018-09-13 07:08] LABS: BASO # 0.12 K/mm3 (0.0-2.0); BASO % 1.6 % (0.0-3.0); EOS # 0.4 (0.0-0.7); EOS % 5.8 % (1.5-5.0); HEMOGLOBIN 9.7 g/dL (14.0-18.0); LYMPH # 1.1 (1.2-3.4); LYMPH % 14.3 % (22.0-35.0); MEAN CELL VOLUME 88.3 fl (80.0-105.0); MEAN CORPUSCULAR HEMOGLOBIN 27.1 pg (25.0-35.0); MEAN CORPUSCULAR HGB CONC 30.7 g/dl (31.0-37.0); MEAN PLATELET VOLUME 9.4 fl (7.0-11.0); MONO # 0.8 (0.1-0.6); MONO % 10.2 % (1.0-6.0); RBC 3.58 10^6/uL (3.5-6.1); RED CELL DISTRIBUTION WIDTH 16.2 % (11.5-14.5); WHITE BLOOD COUNT 7.4 10^3/uL (4.5-11.0)
[2018-09-13 07:34] LABS: LDL CHOLESTEROL 41 mg/dL (0-129)
[2018-09-13 07:45] LABS: ALB/GLOB RATIO 1.1 (1.1-1.8); ALBUMIN 3.7 g/dL (3.0-4.8); ALT/SGPT 24 U/L (7-56); AST/SGOT 17 U/L (17-59); BLOOD UREA NITROGEN 22 mg/dL (7-21); CALCIUM 9.3 mg/dL (8.4-10.5); GFR NON-AFRICAN AMERICAN > 60; HDL CHOLESTEROL 32 mg/dL (29-60)
[2018-09-13] MEDS: Potassium Chloride 20 mEq ER Tab PO SCH (08:25)
[2018-09-13] MEDS: Insulin Reg-LOW-Coverage SC SCH ×4 (08:26→21:13)
--- NOTE | 2018-09-13 09:23 | CP.PCM.PN ---
Subjective - Date & Time of Evaluation Date of Evaluation: 09/13/18 Time of Evaluation: 06:35 - Subjective Subjective: Awake, alert, no distress, complaining of leg pains Reason for consultation and follow up:Cardiac evaluation, history of congestive heart failure, admitted for leg swelling, history of chronic lower extremity cellulitis, coronary artery disease,hypertension, diabetes Seen and examined by me and Dr. Vargas Objective - Vital Signs/Intake and Output Vital Signs (last 24 hours): Temp Pulse Resp BP Pulse Ox 98 F 98 H 19 120/59 L 98 09/13/18 05:15 09/13/18 05:15 09/13/18 05:15 09/13/18 05:15 09/13/18 05:15 Intake and Output: 09/13/18 09/13/18 06:59 18:59 Intake Total 1100 Output Total 5800 Balance -4700 - Medications Medications: Current Medications Alprazolam (Xanax) 1 mg PO TID PRN; Protocol PRN Reason: Anxiety Last Admin: 09/12/18 22:10 Dose: 1 mg Dabigatran (Pradaxa) 150 mg PO BID [facility]; Protocol Last Admin: 09/12/18 17:25 Dose: 150 mg Digoxin (Lanoxin) 0.25 mg PO 1400 [facility] Last Admin: 09/12/18 13:06 Dose: 0.25 mg Diltiazem HCl (Cardizem Cd) 240 mg PO DAILY [facility] Last Admin: 09/12/18 09:40 Dose: 240 mg Furosemide (Lasix) 80 mg IVP DAILY [facility] Last Admin: 09/12/18 09:15 Dose: 80 mg Linezolid (Zyvox 600mg/300ml D5w) 600 mg in 300 mls @ 200 mls/hr IVPB Q12 [facility]; Protocol Stop: 09/19/18 10:01 Last Admin: 09/12/18 22:09 Dose: 200 mls/hr Aztreonam (Azactam 1 Gm) 100 mls @ 100 mls/hr IVPB Q8 [facility]; Protocol Stop: 09/19/18 14:01 Last Admin: 09/13/18 05:03 Dose: 100 mls/hr Insulin Human Regular (Humulin R Low) 0 units SC ACHS [facility]; Protocol Last Admin: 09/13/18 08:26 Dose: Not Given Metolazone (Zaroxolyn) 5 mg PO DAILY [facility] Stop: 09/15/18 23:59 Oxycodone/Acetaminophen (Percocet 10/325 Mg Tab) 1 tab PO Q6H PRN PRN Reason: Pain, moderate (4-7) Last Admin: 09/13/18 06:39 Dose: 1 tab Potassium Chloride (K-Dur 20 Meq Er Tab) 20 meq PO BRK [facility] Last Admin: 09/13/18 08:25 Dose: 20 meq - Labs Labs: 09/13/18 06:35 09/13/18 06:35 PT 19.0 SECONDS (9.4-12.5) H 09/11/18 19:00 INR 1.71 09/11/18 19:00 APTT 58.1 Seconds (26.9-38.3) H 09/11/18 19:00 - Constitutional Appears: Non-toxic, No Acute Distress - Head Exam Head Exam: NORMAL INSPECTION, NORMOCEPHALIC - Eye Exam Eye Exam: Normal appearance Pupil Exam: NORMAL ACCOMODATION - ENT Exam ENT Exam: Mucous Membranes Moist, Normal Exam - Respiratory Exam Respiratory Exam: Decreased Breath Sounds, NORMAL BREATHING PATTERN - Cardiovascular Exam Cardiovascular Exam: Irregular Rhythm, +S1, +S2 Additional comments: Telemetry atrial fibrillation 70's - GI/Abdominal Exam GI & Abdominal Exam: Soft, Normal Bowel Sounds - Back Exam Additional comments: bilateral legs sampson wrapped - Neurological Exam Neurological Exam: Alert, Awake, Oriented x3 - Psychiatric Exam Psychiatric exam: Normal Affect, Normal Mood - Skin Skin Exam: Dry, Normal Color, Warm Assessment and Plan - Assessment and Plan (Free Text) Assessment: A 58 year old male morbidly obese, who came in to the ER due to leg swelling and shortness of breath. History of chronic lower extremity cellulitis, non obstru ctive coronary artery disease,hypertension, diabetes,COPD, congestive heart failure, chronic atrial fibrillation, on Pradaxa, JOSELINE, chronic venous insufficiency, former smoker. Recent Echo on 04/23/2018 showed normal LVEF.Severe pulmonary hypertension RVSP71 mmHg,trace MR/TR. Chest X ray on admission was normal. No pulmonary congestion. EKG Atrial fibrillation at rapid rate 127/min. Troponin normal. Elevated BNP. Exacerbation of COPD. IV antibiotics for cellulitis, ID on consult. Podiatry on consult. Plan: Denies shortness of breath Complaints of leg pain PRN Percocet given On Pradaxa 150 mg BID, Digoxin 0.25 mg daily,Cardizem CD 240 mg daily Lasix 80 mg daily,Zaroxolyn 5 mg daily, Kdur 20 meq daily Digoxin level WNL Continue to diurese Continue IV antibiotics for cellulitis per ID Continue current treatment Continue current medications Podiatry on consult Lifestyle modification Weight reduction Will follow up Plan and treatment discussed with Dr. Vargas
--- NOTE | 2018-09-13 09:40 | CP.PCM.PN ---
<Rossana Sung - Last Filed: 09/13/18 09:36> Subjective - Date & Time of Evaluation Date of Evaluation: 09/13/18 Time of Evaluation: 09:36 - Subjective Subjective: Podiatry Progress Note - Dr. Kaur 58M seen and evaluated this AM for bilateral lower extremity edema and venous stasis ulcerations. Patient resting comfortably, hemodynamically stable and NAD. No acute events overnight. Patient offers no new complaints to lower extremity wounds; admits to pain in lower extremities though controlled. Dressings to LE clean/dry/intact. Denies n/v/f/d/c/sob/soto/cp. Objective - Vital Signs/Intake and Output Vital Signs (last 24 hours): Temp Pulse Resp BP Pulse Ox 98 F 98 H 19 120/59 L 98 09/13/18 05:15 09/13/18 05:15 09/13/18 05:15 09/13/18 05:15 09/13/18 05:15 Intake and Output: 09/13/18 09/13/18 06:59 18:59 Intake Total 1100 Output Total 5800 Balance -4700 - Medications Medications: Current Medications Alprazolam (Xanax) 1 mg PO TID PRN; Protocol PRN Reason: Anxiety Last Admin: 09/12/18 22:10 Dose: 1 mg Dabigatran (Pradaxa) 150 mg PO BID [facility]; Protocol Last Admin: 09/12/18 17:25 Dose: 150 mg Digoxin (Lanoxin) 0.25 mg PO 1400 [facility] Last Admin: 09/12/18 13:06 Dose: 0.25 mg Diltiazem HCl (Cardizem Cd) 240 mg PO DAILY [facility] Last Admin: 09/12/18 09:40 Dose: 240 mg Furosemide (Lasix) 80 mg IVP DAILY [facility] Last Admin: 09/12/18 09:15 Dose: 80 mg Linezolid (Zyvox 600mg/300ml D5w) 600 mg in 300 mls @ 200 mls/hr IVPB Q12 [facility]; Protocol Stop: 09/19/18 10:01 Last Admin: 09/12/18 22:09 Dose: 200 mls/hr Aztreonam (Azactam 1 Gm) 100 mls @ 100 mls/hr IVPB Q8 [facility]; Protocol Stop: 09/19/18 14:01 Last Admin: 09/13/18 05:03 Dose: 100 mls/hr Insulin Human Regular (Humulin R Low) 0 units SC ACHS [facility]; Protocol Last Admin: 09/13/18 08:26 Dose: Not Given Metolazone (Zaroxolyn) 5 mg PO DAILY [facility] Stop: 09/15/18 23:59 Oxycodone/Acetaminophen (Percocet 10/325 Mg Tab) 1 tab PO Q6H PRN PRN Reason: Pain, moderate (4-7) Last Admin: 09/13/18 06:39 Dose: 1 tab Potassium Chloride (K-Dur 20 Meq Er Tab) 20 meq PO BRK [facility] Last Admin: 09/13/18 08:25 Dose: 20 meq - Labs Labs: 09/13/18 06:35 09/13/18 06:35 PT 19.0 SECONDS (9.4-12.5) H 09/11/18 19:00 INR 1.71 09/11/18 19:00 APTT 58.1 Seconds (26.9-38.3) H 09/11/18 19:00 - Constitutional Appears: Non-toxic, No Acute Distress - Extremities Exam Additional comments: LE focused exam: Vasc: Nonpalpable DP and PT pulses secondary to chronic indurated edema b/l. Temperature gradient warm to warm b/l. +2 pitting edema bilaterally. Ortho: Diffuse tenderness upon palpation noted to bilateral LE. Neuro: Gross and protective sensation diminishedb/l. Derm: Mild drainage from L hallux ulceration, mild weeping at b/l LE. Rubor present to b/l lower extremities beginning from tibial tuberosity extending distally to digits, small breaks in the skin noted to b/l lower extremities, no malodor appreciated, no purulence, no fluctuance, no tracking, no tunneling, no undermining, no probe to bone, significant xerosis to b/l lower extremities. - Neurological Exam Neurological Exam: Alert, Awake, Oriented x3 - Psychiatric Exam Psychiatric exam: Normal Affect, Normal Mood Assessment and Plan - Assessment and Plan (Free Text) Assessment: 58M with b/l lower extremity venous stasis ulcerations and edema Plan: Patient seen and evaluated alongside attending, Dr. Kaur Afebrile, WBC 7.4 Continue local wound care: saline cleanse, maxsorb, DSD, LARY b/l Left hallux wound culture obtained, f/u Continue abx per ID Pain control per medicine Podiatry will continue to follow <Andres Kaur - Last Filed: 09/16/18 16:31> Objective - Vital Signs/Intake and Output Vital Signs (last 24 hours): Temp Pulse Resp BP Pulse Ox 98.6 F 74 20 181/87 H 98 09/16/18 12:00 09/16/18 12:00 09/16/18 12:00 09/16/18 12:00 09/16/18 05:49 Intake and Output: 09/16/18 09/16/18 06:59 18:59 Intake Total 1000 Output Total 1775 Balance -775 - Medications Medications: Current Medications Alprazolam (Xanax) 1 mg PO TID PRN; Protocol PRN Reason: Anxiety Last Admin: 09/15/18 20:00 Dose: 1 mg Betamethasone/Clotrimazole (Lotrisone) 0 ml TOP BID [facility] Last Admin: 09/16/18 11:00 Dose: 1 applic Dabigatran (Pradaxa) 150 mg PO BID [facility]; Protocol Last Admin: 09/16/18 10:58 Dose: 150 mg Digoxin (Lanoxin) 0.25 mg PO 1400 [facility] Last Admin: 09/16/18 13:31 Dose: 0.25 mg Diltiazem HCl (Cardizem Cd) 240 mg PO DAILY [facility] Last Admin: 09/16/18 10:58 Dose: 240 mg Furosemide (Lasix) 80 mg IVP DAILY [facility] Last Admin: 09/16/18 10:57 Dose: 80 mg Linezolid (Zyvox 600mg/300ml D5w) 600 mg in 300 mls @ 200 mls/hr IVPB Q12 [facility]; Protocol Stop: 09/19/18 10:01 Last Admin: 09/16/18 10:56 Dose: 200 mls/hr Aztreonam (Azactam 1 Gm) 100 mls @ 100 mls/hr IVPB Q8 [facility]; Protocol Stop: 09/19/18 14:01 Last Admin: 09/16/18 13:32 Dose: 100 mls/hr Insulin Human Regular (Humulin R Low) 0 units SC ACHS [facility]; Protocol Last Admin: 09/16/18 12:46 Dose: Not Given Metolazone (Zaroxolyn) 5 mg PO DAILY [facility] Last Admin: 09/16/18 10:58 Dose: 5 mg Mupirocin (Bactroban Ointment) 0 gm NS BID [facility] Stop: 09/18/18 18:01 Last Admin: 09/16/18 10:59 Dose: 1 applic Oxycodone/Acetaminophen (Percocet 10/325 Mg Tab) 1 tab PO Q6H PRN PRN Reason: Pain, moderate (4-7) Last Admin: 09/16/18 12:41 Dose: 1 tab Potassium Chloride (K-Dur 20 Meq Er Tab) 20 meq PO BRK [facility] Last Admin: 09/16/18 08:56 Dose: 20 meq Spironolactone (Aldactone) 25 mg PO BID [facility] Last Admin: 09/16/18 10:58 Dose: 25 mg - Labs Labs: 09/13/18 06:35 09/15/18 07:00 PT 19.0 SECONDS (9.4-12.5) H 09/11/18 19:00 INR 1.71 09/11/18 19:00 APTT 58.1 Seconds (26.9-38.3) H 09/11/18 19:00 Attending/Attestation - Attestation I have personally seen and examined this patient.: Yes I have fully participated in the care of the patient.: Yes I have reviewed all pertinent clinical information, including history, physical exam and plan: Yes
[2018-09-13] MEDS ORDERED: Potassium Chloride 20 mEq ER Tab PO STA (10:44)
--- NOTE | 2018-09-13 12:01 | CP.PCM.PN ---
Subjective - Date & Time of Evaluation Date of Evaluation: 09/13/18 Time of Evaluation: 11:45 - Subjective Subjective: NAD, denies chest pain, no SOB Objective - Vital Signs/Intake and Output Vital Signs (last 24 hours): Temp Pulse Resp BP Pulse Ox 98 F 98 H 19 120/59 L 98 09/13/18 05:15 09/13/18 05:15 09/13/18 05:15 09/13/18 05:15 09/13/18 05:15 Intake and Output: 09/13/18 09/13/18 06:59 18:59 Intake Total 1100 Output Total 5800 Balance -4700 - Medications Medications: Current Medications Alprazolam (Xanax) 1 mg PO TID PRN; Protocol PRN Reason: Anxiety Last Admin: 09/12/18 22:10 Dose: 1 mg Dabigatran (Pradaxa) 150 mg PO BID [facility]; Protocol Last Admin: 09/12/18 17:25 Dose: 150 mg Digoxin (Lanoxin) 0.25 mg PO 1400 [facility] Last Admin: 09/12/18 13:06 Dose: 0.25 mg Diltiazem HCl (Cardizem Cd) 240 mg PO DAILY [facility] Last Admin: 09/12/18 09:40 Dose: 240 mg Furosemide (Lasix) 80 mg IVP DAILY [facility] Last Admin: 09/12/18 09:15 Dose: 80 mg Linezolid (Zyvox 600mg/300ml D5w) 600 mg in 300 mls @ 200 mls/hr IVPB Q12 [facility]; Protocol Stop: 09/19/18 10:01 Last Admin: 09/12/18 22:09 Dose: 200 mls/hr Aztreonam (Azactam 1 Gm) 100 mls @ 100 mls/hr IVPB Q8 [facility]; Protocol Stop: 09/19/18 14:01 Last Admin: 09/13/18 05:03 Dose: 100 mls/hr Insulin Human Regular (Humulin R Low) 0 units SC ACHS [facility]; Protocol Last Admin: 09/13/18 08:26 Dose: Not Given Metolazone (Zaroxolyn) 5 mg PO DAILY [facility] Stop: 09/15/18 23:59 Oxycodone/Acetaminophen (Percocet 10/325 Mg Tab) 1 tab PO Q6H PRN PRN Reason: Pain, moderate (4-7) Last Admin: 09/13/18 06:39 Dose: 1 tab Potassium Chloride (K-Dur 20 Meq Er Tab) 20 meq PO BRK [facility] Last Admin: 09/13/18 08:25 Dose: 20 meq Potassium Chloride (K-Dur 20 Meq Er Tab) 40 meq PO ONCE ONE Stop: 09/13/18 15:01 Spironolactone (Aldactone) 25 mg PO BID [facility] - Labs Labs: 09/13/18 06:35 09/13/18 06:35 PT 19.0 SECONDS (9.4-12.5) H 09/11/18 19:00 INR 1.71 09/11/18 19:00 APTT 58.1 Seconds (26.9-38.3) H 09/11/18 19:00 - Respiratory Exam Respiratory Exam: Rales, NORMAL BREATHING PATTERN - Cardiovascular Exam Cardiovascular Exam: REGULAR RHYTHM - GI/Abdominal Exam GI & Abdominal Exam: Soft, Normal Bowel Sounds - Extremities Exam Extremities Exam: Pedal Edema - Neurological Exam Neurological Exam: Alert, Awake Assessment and Plan (1) CHF exacerbation Status: Acute (2) Leg edema Status: Acute (3) Cellulitis Status: Acute (4) Hypokalemia Status: Acute (5) Atrial fibrillation Status: Chronic (6) COPD (chronic obstructive pulmonary disease) Status: Chronic - Assessment and Plan (Free Text) Plan: continue IV Abx, wound care. ID/cardio/podiatry follow-up, monitor lytes K+ given, SW for DC planning
[2018-09-13] MEDS: Linezolid 600 mg in D5W 300 ml 600 MG/300 ML BAG IVPB SCH ×2 (12:18→21:36)
[2018-09-13] MEDS: metOLazone 5 MG TAB PO SCH (12:20)
[2018-09-13] MEDS: diltiaZEM 240 mg/24 Hours CD Cap PO SCH (12:21)
--- NOTE | 2018-09-13 12:24 | PN ---
DATE: 09/13/2018 SUBJECTIVE: The patient is in bed in no acute distress, was seen earlier this morning in room 265 bed 2. The patient is awake and alert. The patient was examined with Podiatry and lower extremities were examined. PHYSICAL EXAMINATION: GENERAL: The patient had an uneventful night last night. VITAL SIGNS: Temperature on exam this morning of 98, blood pressure is 120/50, respiratory rate 20, heart rate of 98. HEENT: Unremarkable. NECK: Supple. LUNGS: Have decreased breath sounds. HEART: Normal S1, S2. ABDOMEN: Soft. EXTREMITIES: Examination of legs, both legs with Podiatry reveals chronic erythema, warm to touch, and no discharge. LABORATORY DATA: Reveals a white count of 7.4, hemoglobin of 9, platelets of 407, BUN of 22, creatinine of 1, digoxin level is less than 0.04. Microbiology is pending. MEDICATIONS: Review of orders reveals the patient to be on aztreonam and Zyvox. ASSESSMENT AND PLAN: This is a 58-year-old male with lower extremity cellulitis with a chronic lower extremity edema, coronary artery disease, hypertension, atrial fibrillation, diabetes, obstructive sleep apnea, morbid obesity with body mass index of 44 with bilateral lower extremity chronic stasis, presenting with left leg cellulitis which this morning appears to be much improved. Chronic congestive heart failure and hypertension on Zyvox and aztreonam. We will follow the cultures, appears to be doing well, will be stopping the antibiotics in the next 24 hours. Erik Alexander MD
[2018-09-13] MEDS: Digoxin 250 mcg (0.25 mg) Tab PO SCH (14:18)
[2018-09-13] MEDS ORDERED: Potassium Chloride 20 mEq ER Tab PO ONE (15:00)
[2018-09-13] MEDS: Mupirocin 2% Ointment 15 GM TUBE NS SCH (17:22)
[2018-09-14] MEDS: Aztreonam 1 Gm in NS 100mL 100 ML IVPB SCH ×3 (05:21→21:44)
[2018-09-14] MEDS: Insulin Reg-LOW-Coverage SC SCH ×4 (06:30→21:40)
--- NOTE | 2018-09-14 07:35 | CP.PCM.PN ---
Subjective - Date & Time of Evaluation Date of Evaluation: 09/14/18 Time of Evaluation: 06:30 - Subjective Subjective: Awake, alert, no distress, feels okay Reason for consultation and follow up:Cardiac evaluation, history of congestive heart failure, admitted for leg swelling, history of chronic lower extremity cellulitis, coronary artery disease,hypertension, diabetes Seen and examined by me and Dr. Vargas Objective - Vital Signs/Intake and Output Vital Signs (last 24 hours): Temp Pulse Resp BP Pulse Ox 97.5 F L 77 20 118/69 95 09/14/18 05:51 09/14/18 05:51 09/14/18 05:51 09/14/18 05:51 09/14/18 05:51 Intake and Output: 09/14/18 09/14/18 06:59 18:59 Intake Total 870 Output Total 800 Balance 70 - Medications Medications: Current Medications Alprazolam (Xanax) 1 mg PO TID PRN; Protocol PRN Reason: Anxiety Last Admin: 09/13/18 21:37 Dose: 1 mg Dabigatran (Pradaxa) 150 mg PO BID [facility]; Protocol Last Admin: 09/13/18 17:22 Dose: 150 mg Digoxin (Lanoxin) 0.25 mg PO 1400 [facility] Last Admin: 09/13/18 14:18 Dose: 0.25 mg Diltiazem HCl (Cardizem Cd) 240 mg PO DAILY [facility] Last Admin: 09/13/18 12:21 Dose: 240 mg Furosemide (Lasix) 80 mg IVP DAILY [facility] Last Admin: 09/13/18 12:20 Dose: 80 mg Linezolid (Zyvox 600mg/300ml D5w) 600 mg in 300 mls @ 200 mls/hr IVPB Q12 [facility]; Protocol Stop: 09/19/18 10:01 Last Admin: 09/13/18 21:36 Dose: 200 mls/hr Aztreonam (Azactam 1 Gm) 100 mls @ 100 mls/hr IVPB Q8 [facility]; Protocol Stop: 09/19/18 14:01 Last Admin: 09/14/18 05:21 Dose: 100 mls/hr Insulin Human Regular (Humulin R Low) 0 units SC ACHS [facility]; Protocol Last Admin: 09/13/18 21:13 Dose: Not Given Metolazone (Zaroxolyn) 5 mg PO DAILY [facility] Stop: 09/15/18 23:59 Last Admin: 09/13/18 12:20 Dose: 5 mg Mupirocin (Bactroban Ointment) 0 gm NS BID [facility] Stop: 09/18/18 18:01 Last Admin: 09/13/18 17:22 Dose: 1 applic Oxycodone/Acetaminophen (Percocet 10/325 Mg Tab) 1 tab PO Q6H PRN PRN Reason: Pain, moderate (4-7) Last Admin: 09/13/18 17:21 Dose: 1 tab Potassium Chloride (K-Dur 20 Meq Er Tab) 20 meq PO BRK [facility] Last Admin: 09/13/18 08:25 Dose: 20 meq Spironolactone (Aldactone) 25 mg PO BID [facility] Last Admin: 09/13/18 17:22 Dose: 25 mg - Labs Labs: 09/13/18 06:35 09/13/18 06:35 PT 19.0 SECONDS (9.4-12.5) H 09/11/18 19:00 INR 1.71 09/11/18 19:00 APTT 58.1 Seconds (26.9-38.3) H 09/11/18 19:00 - Constitutional Appears: Non-toxic, No Acute Distress - Head Exam Head Exam: NORMAL INSPECTION, NORMOCEPHALIC - Eye Exam Eye Exam: Normal appearance Pupil Exam: NORMAL ACCOMODATION - ENT Exam ENT Exam: Mucous Membranes Moist, Normal Exam - Respiratory Exam Respiratory Exam: Decreased Breath Sounds, NORMAL BREATHING PATTERN - Cardiovascular Exam Cardiovascular Exam: Irregular Rhythm, +S1, +S2 Additional comments: Telemetry Afib 70's - GI/Abdominal Exam GI & Abdominal Exam: Soft, Normal Bowel Sounds - Extremities Exam Extremities Exam: Full ROM Additional comments: bilateral sampson wrapped legs - Neurological Exam Neurological Exam: Alert, Awake, Oriented x3 - Psychiatric Exam Psychiatric exam: Normal Affect, Normal Mood - Skin Skin Exam: Dry, Normal Color, Warm Assessment and Plan - Assessment and Plan (Free Text) Assessment: A 58 year old male morbidly obese, who came in to the ER due to leg swelling and shortness of breath. History of chronic lower extremity cellulitis, non obstructive coronary artery disease,hypertension, diabetes,COPD, congestive heart failure, chronic atrial fibrillation, on Pradaxa, JOSELINE, chronic venous insufficiency, former smoker. Recent Echo on 04/23/2018 showed normal LVEF.Severe pulmonary hypertension RVSP71 mmHg,trace MR/TR. Chest X ray on admission was normal. No pulmonary congestion. EKG Atrial fibrillation at rapid rate 127/min. Troponin normal. Elevated BNP. Exacerbation of COPD. IV antibiotics for cellulitis, ID on consult. Podiatry on consult. Cardiac status stable. potassium replenish. Plan: No distress, Denies shortness of breath Cardiac status stable Heart rate controlled Blood pressure controlled On Pradaxa 150 mg BID, Digoxin 0.25 mg daily,Cardizem CD 240 mg daily Lasix 80 mg daily,Zaroxolyn 5 mg daily, Kdur 20 meq daily Continue to diurese Potassium replenished yesterday, will repeat labs in AM Continue IV antibiotics for cellulitis per ID Continue current treatment Continue current medications Podiatry on consult Lifestyle modification Weight reduction OOB to chair, ambulating with walker Will follow up Plan and treatment discussed with Dr. Vargas
[2018-09-14] MEDS: Potassium Chloride 20 mEq ER Tab PO SCH (08:53)
[2018-09-14] MEDS: Oxycodone/Acetaminophen 10/325 mg Tab PO PRN ×2 (08:55→16:16)
[2018-09-14] MEDS: Mupirocin 2% Ointment 15 GM TUBE NS SCH ×2 (09:01→17:24)
[2018-09-14] MEDS: Linezolid 600 mg in D5W 300 ml 600 MG/300 ML BAG IVPB SCH ×2 (09:01→21:44)
[2018-09-14] MEDS: diltiaZEM 240 mg/24 Hours CD Cap PO SCH (09:02)
[2018-09-14] MEDS: metOLazone 5 MG TAB PO SCH (09:03)
[2018-09-14 12:58] LABS: BLOOD UREA NITROGEN 24 mg/dL (7-21); GFR NON-AFRICAN AMERICAN > 60
--- NOTE | 2018-09-14 13:15 | PN ---
DATE: 09/14/2018 SUBJECTIVE: The patient is in bed, seen earlier this morning. No fevers. No chills. PHYSICAL EXAMINATION: VITAL SIGNS: Temperature is 97, blood pressure is 120/60, respiratory rate of 18. HEENT: Unremarkable. NECK: Supple. LUNGS: Decreased breath sounds. HEART: Normal S1 and S2. ABDOMEN: Soft and nontender. LABORATORY DATA: Reveals white count is 7.4. Chemistries are noted and microbiology is reviewed. Toe culture has gram-negative phyllis and gram-positive cocci. Review of orders reveals the patient to be on aztreonam and Zyvox. ASSESSMENT AND PLAN: This is a 58-year-old male with lower extremity cellulitis and chronic lower extremity edema, coronary artery disease, hypertension, atrial fibrillation, diabetes, obstructive sleep apnea, morbid obesity with a body mass index of 44 with bilateral lower extremity chronic stasis, presenting with left leg cellulitis that appears much improved in phase of chronic congestive heart failure, on Zyvox and aztreonam, will be able to stop the antibiotics in the next 24 hours. On examination, today his toe does not look infected, a gram-negative phyllis and a gram-positive cocci a colonizer to his chronic edema. We will follow with you. Erik Alexander MD
--- NOTE | 2018-09-14 14:27 | CP.PCM.PN ---
<Rossana Sung - Last Filed: 09/14/18 22:29> Subjective - Date & Time of Evaluation Date of Evaluation: 09/14/18 Time of Evaluation: 14:27 - Subjective Subjective: Podiatry Progress Note - Drs. Meadows/Vincent 58M seen and evaluated this AM for bilateral lower extremity edema and venous stasis ulcerations. Patient resting comfortably, hemodynamically stable and NAD. No acute events overnight. Pain in legs well-controlled. No new lower extremity complaints. Dressings clean/dry/intact. Denies n/v/f/d/c/sob/soto/cp. Objective - Vital Signs/Intake and Output Vital Signs (last 24 hours): Temp Pulse Resp BP Pulse Ox 97.8 F 76 20 113/70 95 09/14/18 12:00 09/14/18 12:00 09/14/18 12:00 09/14/18 12:00 09/14/18 05:51 Intake and Output: 09/14/18 09/14/18 06:59 18:59 Intake Total 870 Output Total 800 Balance 70 - Medications Medications: Current Medications Alprazolam (Xanax) 1 mg PO TID PRN; Protocol PRN Reason: Anxiety Last Admin: 09/13/18 21:37 Dose: 1 mg Dabigatran (Pradaxa) 150 mg PO BID [facility]; Protocol Last Admin: 09/14/18 09:02 Dose: 150 mg Digoxin (Lanoxin) 0.25 mg PO 1400 [facility] Last Admin: 09/13/18 14:18 Dose: 0.25 mg Diltiazem HCl (Cardizem Cd) 240 mg PO DAILY [facility] Last Admin: 09/14/18 09:02 Dose: 240 mg Furosemide (Lasix) 80 mg IVP DAILY [facility] Last Admin: 09/14/18 09:01 Dose: 80 mg Linezolid (Zyvox 600mg/300ml D5w) 600 mg in 300 mls @ 200 mls/hr IVPB Q12 [facility]; Protocol Stop: 09/19/18 10:01 Last Admin: 09/14/18 09:01 Dose: 200 mls/hr Aztreonam (Azactam 1 Gm) 100 mls @ 100 mls/hr IVPB Q8 [facility]; Protocol Stop: 09/19/18 14:01 Last Admin: 09/14/18 05:21 Dose: 100 mls/hr Insulin Human Regular (Humulin R Low) 0 units SC ACHS [facility]; Protocol Last Admin: 09/14/18 06:30 Dose: Not Given Metolazone (Zaroxolyn) 5 mg PO DAILY [facility] Stop: 09/15/18 23:59 Last Admin: 09/14/18 09:03 Dose: 5 mg Mupirocin (Bactroban Ointment) 0 gm NS BID [facility] Stop: 09/18/18 18:01 Last Admin: 09/14/18 09:01 Dose: 1 applic Oxycodone/Acetaminophen (Percocet 10/325 Mg Tab) 1 tab PO Q6H PRN PRN Reason: Pain, moderate (4-7) Last Admin: 09/14/18 08:55 Dose: 1 tab Potassium Chloride (K-Dur 20 Meq Er Tab) 20 meq PO BRK [facility] Last Admin: 09/14/18 08:53 Dose: 20 meq Spironolactone (Aldactone) 25 mg PO BID [facility] Last Admin: 09/14/18 09:03 Dose: 25 mg - Labs Labs: 09/13/18 06:35 09/14/18 12:30 PT 19.0 SECONDS (9.4-12.5) H 09/11/18 19:00 INR 1.71 09/11/18 19:00 APTT 58.1 Seconds (26.9-38.3) H 09/11/18 19:00 - Constitutional Appears: Non-toxic, No Acute Distress - Extremities Exam Additional comments: LE focused exam: Vasc: Nonpalpable DP and PT pulses secondary to chronic indurated edema b/l. Temperature gradient warm to warm b/l. +2 pitting edema bilaterally. Ortho: Diffuse tenderness upon palpation noted to bilateral LE. Neuro: Gross and protective sensation diminishedb/l. Derm: Mild drainage from L hallux ulceration, mild weeping at b/l LE. Rubor present to b/l lower extremities beginning from tibial tuberosity extending distally to digits, small breaks in the skin noted to b/l lower extremities, no malodor appreciated, no purulence, no fluctuance, no tracking, no tunneling, no undermining, no probe to bone, significant xerosis to b/l lower extremities. - Neurological Exam Neurological Exam: Alert, Awake, Oriented x3 - Psychiatric Exam Psychiatric exam: Normal Affect, Normal Mood Assessment and Plan - Assessment and Plan (Free Text) Assessment: 58M with b/l lower extremity venous stasis ulcerations and edema Plan: Patient seen and evaluated VSS Continue local wound care: saline cleanse, maxsorb, DSD, LARY b/l Left hallux wound culture - gram negative phyllis, gram positive cocci (prelim) Continue abx per ID Pain control per medicine Podiatry will continue to follow Further recs per Dr. Meadows <Jolene Meadows - Last Filed: 09/15/18 08:03> Objective - Vital Signs/Intake and Output Vital Signs (last 24 hours): Temp Pulse Resp BP Pulse Ox 97.3 F L 85 20 119/71 95 09/15/18 05:37 09/15/18 05:37 09/15/18 05:37 09/15/18 05:37 09/15/18 05:37 Intake and Output: 09/15/18 09/15/18 06:59 18:59 Intake Total 1290 Output Total 950 Balance 340 - Medications Medications: Current Medications Alprazolam (Xanax) 1 mg PO TID PRN; Protocol PRN Reason: Anxiety Last Admin: 09/14/18 21:43 Dose: 1 mg Dabigatran (Pradaxa) 150 mg PO BID [facility]; Protocol Last Admin: 09/14/18 17:24 Dose: 150 mg Digoxin (Lanoxin) 0.25 mg PO 1400 [facility] Last Admin: 09/14/18 16:09 Dose: 0.25 mg Diltiazem HCl (Cardizem Cd) 240 mg PO DAILY [facility] Last Admin: 09/14/18 09:02 Dose: 240 mg Furosemide (Lasix) 80 mg IVP DAILY [facility] Last Admin: 09/14/18 09:01 Dose: 80 mg Linezolid (Zyvox 600mg/300ml D5w) 600 mg in 300 mls @ 200 mls/hr IVPB Q12 [facility]; Protocol Stop: 09/19/18 10:01 Last Admin: 09/14/18 21:44 Dose: 200 mls/hr Aztreonam (Azactam 1 Gm) 100 mls @ 100 mls/hr IVPB Q8 [facility]; Protocol Stop: 09/19/18 14:01 Last Admin: 09/15/18 05:18 Dose: 100 mls/hr Insulin Human Regular (Humulin R Low) 0 units SC ACHS [facility]; Protocol Last Admin: 09/15/18 07:58 Dose: Not Given Metolazone (Zaroxolyn) 5 mg PO DAILY [facility] Stop: 09/15/18 23:59 Last Admin: 09/14/18 09:03 Dose: 5 mg Mupirocin (Bactroban Ointment) 0 gm NS BID [facility] Stop: 09/18/18 18:01 Last Admin: 09/14/18 17:24 Dose: 1 applic Oxycodone/Acetaminophen (Percocet 10/325 Mg Tab) 1 tab PO Q6H PRN PRN Reason: Pain, moderate (4-7) Last Admin: 09/15/18 05:18 Dose: 1 tab Potassium Chloride (K-Dur 20 Meq Er Tab) 20 meq PO BRK [facility] Last Admin: 09/14/18 08:53 Dose: 20 meq Spironolactone (Aldactone) 25 mg PO BID [facility] Last Admin: 09/14/18 17:24 Dose: 25 mg - Labs Labs: 09/13/18 06:35 09/14/18 12:30 PT 19.0 SECONDS (9.4-12.5) H 09/11/18 19:00 INR 1.71 09/11/18 19:00 APTT 58.1 Seconds (26.9-38.3) H 09/11/18 19:00 Attending/Attestation - Attestation I have personally seen and examined this patient.: Yes I have fully participated in the care of the patient.: Yes I have reviewed all pertinent clinical information, including history, physical exam and plan: Yes
[2018-09-14] MEDS: Digoxin 250 mcg (0.25 mg) Tab PO SCH (16:09)
[2018-09-15] MEDS: Aztreonam 1 Gm in NS 100mL 100 ML IVPB SCH ×3 (05:18→21:52)
[2018-09-15] MEDS: Oxycodone/Acetaminophen 10/325 mg Tab PO PRN ×3 (05:18→20:01)
--- NOTE | 2018-09-15 06:33 | CP.PCM.PN ---
Subjective - Date & Time of Evaluation Date of Evaluation: 09/15/18 Time of Evaluation: 06:15 - Subjective Subjective: Awake, alert, no distress, OOB to chair Reason for consultation and follow up:Cardiac evaluation, history of congestive heart failure, admitted for leg swelling, history of chronic lower extremity cellulitis, coronary artery disease,hypertension, diabetes Seen and examined by me and Dr. Vargas Objective - Vital Signs/Intake and Output Vital Signs (last 24 hours): Temp Pulse Resp BP Pulse Ox 97.3 F L 85 20 119/71 95 09/15/18 05:37 09/15/18 05:37 09/15/18 05:37 09/15/18 05:37 09/15/18 05:37 Intake and Output: 09/14/18 09/15/18 18:59 06:59 Intake Total 400 780 Output Total 950 Balance 400 -170 - Medications Medications: Current Medications Alprazolam (Xanax) 1 mg PO TID PRN; Protocol PRN Reason: Anxiety Last Admin: 09/14/18 21:43 Dose: 1 mg Dabigatran (Pradaxa) 150 mg PO BID [facility]; Protocol Last Admin: 09/14/18 17:24 Dose: 150 mg Digoxin (Lanoxin) 0.25 mg PO 1400 [facility] Last Admin: 09/14/18 16:09 Dose: 0.25 mg Diltiazem HCl (Cardizem Cd) 240 mg PO DAILY [facility] Last Admin: 09/14/18 09:02 Dose: 240 mg Furosemide (Lasix) 80 mg IVP DAILY [facility] Last Admin: 09/14/18 09:01 Dose: 80 mg Linezolid (Zyvox 600mg/300ml D5w) 600 mg in 300 mls @ 200 mls/hr IVPB Q12 [facility]; Protocol Stop: 09/19/18 10:01 Last Admin: 09/14/18 21:44 Dose: 200 mls/hr Aztreonam (Azactam 1 Gm) 100 mls @ 100 mls/hr IVPB Q8 [facility]; Protocol Stop: 09/19/18 14:01 Last Admin: 09/15/18 05:18 Dose: 100 mls/hr Insulin Human Regular (Humulin R Low) 0 units SC ACHS [facility]; Protocol Last Admin: 09/14/18 21:40 Dose: Not Given Metolazone (Zaroxolyn) 5 mg PO DAILY [facility] Stop: 09/15/18 23:59 Last Admin: 09/14/18 09:03 Dose: 5 mg Mupirocin (Bactroban Ointment) 0 gm NS BID [facility] Stop: 09/18/18 18:01 Last Admin: 09/14/18 17:24 Dose: 1 applic Oxycodone/Acetaminophen (Percocet 10/325 Mg Tab) 1 tab PO Q6H PRN PRN Reason: Pain, moderate (4-7) Last Admin: 09/15/18 05:18 Dose: 1 tab Potassium Chloride (K-Dur 20 Meq Er Tab) 20 meq PO BRK [facility] Last Admin: 09/14/18 08:53 Dose: 20 meq Spironolactone (Aldactone) 25 mg PO BID [facility] Last Admin: 09/14/18 17:24 Dose: 25 mg - Labs Labs: 09/13/18 06:35 09/14/18 12:30 PT 19.0 SECONDS (9.4-12.5) H 09/11/18 19:00 INR 1.71 09/11/18 19:00 APTT 58.1 Seconds (26.9-38.3) H 09/11/18 19:00 - Constitutional Appears: Non-toxic, No Acute Distress - Head Exam Head Exam: NORMAL INSPECTION, NORMOCEPHALIC - Eye Exam Eye Exam: Normal appearance Pupil Exam: NORMAL ACCOMODATION - ENT Exam ENT Exam: Mucous Membranes Moist, Normal Exam - Respiratory Exam Respiratory Exam: Decreased Breath Sounds, Clear to Ausculation Bilateral, NORMAL BREATHING PATTERN - Cardiovascular Exam Cardiovascular Exam: Irregular Rhythm, +S1, +S2 Additional comments: Telemetry Atrial fibrillation 70's - GI/Abdominal Exam GI & Abdominal Exam: Soft, Normal Bowel Sounds - Extremities Exam Additional comments: bilateral sampson wrapped - Neurological Exam Neurological Exam: Alert, Awake, Oriented x3 - Psychiatric Exam Psychiatric exam: Normal Affect, Normal Mood - Skin Skin Exam: Dry, Normal Color, Warm Assessment and Plan - Assessment and Plan (Free Text) Assessment: A 58 year old male morbidly obese, who came in to the ER due to leg swelling and shortness of breath. History of chronic lower extremity cellulitis, non obstructive coronary artery disease,hypertension, diabetes,COPD, congestive heart failure, chronic atrial fibrillation, on Pradaxa, JOSELINE, chronic venous insufficiency, former smoker. Recent Echo on 04/23/2018 showed normal LVEF.Severe pulmonary hypertension [id number] mmHg,trace MR/TR. Chest X ray on admission was normal. No pulmonary congestion. EKG Atrial fibrillation at rapid rate 127/min. Troponin normal. Elevated BNP. Exacerbation of COPD. IV antibiotics for cellulitis, ID on consult. Podiatry on consult. Cardiac status stable. OOB to c hair. Plan: OOB to chair No distress, Denies shortness of breath Cardiac status stable Heart rate controlled Blood pressure controlled Discontinue Telemetry On Pradaxa 150 mg BID, Digoxin 0.25 mg daily,Cardizem CD 240 mg daily Lasix 80 mg daily,Zaroxolyn 5 mg daily, Kdur 20 meq daily Continue IV antibiotics for cellulitis per ID Continue current treatment Continue current medications Glucose controlled Podiatry on consult Will follow up Plan and treatment discussed with Dr. Vargas
[2018-09-15] MEDS: Insulin Reg-LOW-Coverage SC SCH ×4 (07:58→21:53)
[2018-09-15] MEDS: Potassium Chloride 20 mEq ER Tab PO SCH (08:05)
[2018-09-15 08:07] LABS: ALB/GLOB RATIO 1.1 (1.1-1.8); ALBUMIN 4.2 g/dL (3.0-4.8); ALT/SGPT 29 U/L (7-56); AST/SGOT 78 U/L (17-59); BLOOD UREA NITROGEN 29 mg/dL (7-21); CALCIUM 9.2 mg/dL (8.4-10.5); GFR NON-AFRICAN AMERICAN 56
[2018-09-15] MEDS ORDERED: Potassium Chloride 20 mEq ER Tab PO STA (08:56)
[2018-09-15] MEDS: Mupirocin 2% Ointment 15 GM TUBE NS SCH ×2 (09:28→17:43)
[2018-09-15] MEDS: diltiaZEM 240 mg/24 Hours CD Cap PO SCH (09:37)
[2018-09-15] MEDS: metOLazone 5 MG TAB PO SCH (09:38)
--- NOTE | 2018-09-15 09:52 | CP.PCM.PN ---
Subjective - Date & Time of Evaluation Date of Evaluation: 09/15/18 Time of Evaluation: 09:49 - Subjective Subjective: Podiatry Progress Note - Drs. Meadows/Vincent 58M seen and evaluated this AM with Dr. Meadows for bilateral lower extremity edema and venous stasis ulcerations. Patient resting comfortably, hemodynamically stable and NAD. No acute events overnight. Pain in legs well- controlled. No new lower extremity complaints. Dressings clean/dry/intact. Denies n/v/f/d/c/sob/soto/cp. Objective - Vital Signs/Intake and Output Vital Signs (last 24 hours): Temp Pulse Resp BP Pulse Ox 97.3 F L 70 20 115/72 95 09/15/18 05:37 09/15/18 09:37 09/15/18 05:37 09/15/18 09:38 09/15/18 05:37 Intake and Output: 09/15/18 09/15/18 06:59 18:59 Intake Total 1290 Output Total 950 Balance 340 - Medications Medications: Current Medications Alprazolam (Xanax) 1 mg PO TID PRN; Protocol PRN Reason: Anxiety Last Admin: 09/14/18 21:43 Dose: 1 mg Dabigatran (Pradaxa) 150 mg PO BID [facility]; Protocol Last Admin: 09/15/18 09:38 Dose: 150 mg Digoxin (Lanoxin) 0.25 mg PO 1400 [facility] Last Admin: 09/14/18 16:09 Dose: 0.25 mg Diltiazem HCl (Cardizem Cd) 240 mg PO DAILY [facility] Last Admin: 09/15/18 09:37 Dose: 240 mg Furosemide (Lasix) 80 mg IVP DAILY [facility] Last Admin: 09/15/18 09:38 Dose: 80 mg Linezolid (Zyvox 600mg/300ml D5w) 600 mg in 300 mls @ 200 mls/hr IVPB Q12 [facility]; Protocol Stop: 09/19/18 10:01 Last Admin: 09/14/18 21:44 Dose: 200 mls/hr Aztreonam (Azactam 1 Gm) 100 mls @ 100 mls/hr IVPB Q8 [facility]; Protocol Stop: 09/19/18 14:01 Last Admin: 09/15/18 05:18 Dose: 100 mls/hr Insulin Human Regular (Humulin R Low) 0 units SC ACHS [facility]; Protocol Last Admin: 09/15/18 07:58 Dose: Not Given Metolazone (Zaroxolyn) 5 mg PO DAILY [facility] Stop: 09/15/18 23:59 Last Admin: 09/15/18 09:38 Dose: 5 mg Metolazone (Zaroxolyn) 5 mg PO DAILY [facility] Mupirocin (Bactroban Ointment) 0 gm NS BID [facility] Stop: 09/18/18 18:01 Last Admin: 09/15/18 09:28 Dose: Not Given Oxycodone/Acetaminophen (Percocet 10/325 Mg Tab) 1 tab PO Q6H PRN PRN Reason: Pain, moderate (4-7) Last Admin: 09/15/18 05:18 Dose: 1 tab Potassium Chloride (K-Dur 20 Meq Er Tab) 20 meq PO BRK [facility] Last Admin: 09/15/18 08:05 Dose: 20 meq Spironolactone (Aldactone) 25 mg PO BID [facility] Last Admin: 09/15/18 09:38 Dose: 25 mg - Labs Labs: 09/13/18 06:35 09/15/18 07:00 PT 19.0 SECONDS (9.4-12.5) H 09/11/18 19:00 INR 1.71 09/11/18 19:00 APTT 58.1 Seconds (26.9-38.3) H 09/11/18 19:00 - Constitutional Appears: Well, Non-toxic, No Acute Distress - Head Exam Head Exam: ATRAUMATIC, NORMOCEPHALIC - Extremities Exam Additional comments: LE focused exam: Vasc: Nonpalpable DP and PT pulses secondary to chronic indurated edema b/l. Temperature gradient warm to warm b/l. +2 pitting edema bilaterally. Ortho: Diffuse tenderness upon palpation noted to bilateral LE. Neuro: Gross and protective sensation diminishedb/l. Derm: Mild drainage from L hallux ulceration, mild weeping at b/l LE. Rubor present to b/l lower extremities beginning from tibial tuberosity extending distally to digits, small breaks in the skin noted to b/l lower extremities, no malodor appreciated, no purulence, no fluctuance, no tracking, no tunneling, no undermining, no probe to bone, significant xerosis to b/l lower extremities. - Neurological Exam Neurological Exam: Alert, Awake, Oriented x3 - Psychiatric Exam Psychiatric exam: Normal Affect, Normal Mood Assessment and Plan - Assessment and Plan (Free Text) Assessment: 58M with b/l lower extremity venous stasis ulcerations and edema Plan: Patient seen and evaluated with Dr. Abdiel COOPER Continue local wound care: saline cleanse, right leg optifoam, left first and second digit betadine DSD, legs left exposed to air in attempt to assist in drying of legs Left hallux wound culture - gram negative phyllis, gram positive cocci (prelim) Continue abx per ID Pain control per medicine Podiatry will continue to follow
[2018-09-15] MEDS: Linezolid 600 mg in D5W 300 ml 600 MG/300 ML BAG IVPB SCH ×2 (10:57→23:16)
--- NOTE | 2018-09-15 11:52 | CP.PCM.PN ---
Subjective - Date & Time of Evaluation Date of Evaluation: 09/15/18 Time of Evaluation: 11:30 - Subjective Subjective: NAD, denies chest pain, no SOB Objective - Vital Signs/Intake and Output Vital Signs (last 24 hours): Temp Pulse Resp BP Pulse Ox 97.3 F L 70 20 115/72 95 09/15/18 05:37 09/15/18 09:37 09/15/18 05:37 09/15/18 09:38 09/15/18 05:37 Intake and Output: 09/15/18 09/15/18 06:59 18:59 Intake Total 1290 Output Total 950 Balance 340 - Medications Medications: Current Medications Alprazolam (Xanax) 1 mg PO TID PRN; Protocol PRN Reason: Anxiety Last Admin: 09/14/18 21:43 Dose: 1 mg Betamethasone/Clotrimazole (Lotrisone) 2 ml TOP BID [facility] Dabigatran (Pradaxa) 150 mg PO BID [facility]; Protocol Last Admin: 09/15/18 09:38 Dose: 150 mg Digoxin (Lanoxin) 0.25 mg PO 1400 [facility] Last Admin: 09/14/18 16:09 Dose: 0.25 mg Diltiazem HCl (Cardizem Cd) 240 mg PO DAILY [facility] Last Admin: 09/15/18 09:37 Dose: 240 mg Furosemide (Lasix) 80 mg IVP DAILY [facility] Last Admin: 09/15/18 09:38 Dose: 80 mg Linezolid (Zyvox 600mg/300ml D5w) 600 mg in 300 mls @ 200 mls/hr IVPB Q12 [facility]; Protocol Stop: 09/19/18 10:01 Last Admin: 09/15/18 10:57 Dose: 200 mls/hr Aztreonam (Azactam 1 Gm) 100 mls @ 100 mls/hr IVPB Q8 [facility]; Protocol Stop: 09/19/18 14:01 Last Admin: 09/15/18 05:18 Dose: 100 mls/hr Insulin Human Regular (Humulin R Low) 0 units SC ACHS [facility]; Protocol Last Admin: 09/15/18 07:58 Dose: Not Given Metolazone (Zaroxolyn) 5 mg PO DAILY [facility] Stop: 09/15/18 23:59 Last Admin: 01/28/19 09:38 Dose: 5 mg Metolazone (Zaroxolyn) 5 mg PO DAILY [facility] Mupirocin (Bactroban Ointment) 0 gm NS BID [facility] Stop: 09/18/18 18:01 Last Admin: 09/15/18 09:28 Dose: Not Given Oxycodone/Acetaminophen (Percocet 10/325 Mg Tab) 1 tab PO Q6H PRN PRN Reason: Pain, moderate (4-7) Last Admin: 09/15/18 05:18 Dose: 1 tab Potassium Chloride (K-Dur 20 Meq Er Tab) 20 meq PO BRK [facility] Last Admin: 09/15/18 08:05 Dose: 20 meq Spironolactone (Aldactone) 25 mg PO BID [facility] Last Admin: 09/15/18 09:38 Dose: 25 mg - Labs Labs: 09/13/18 06:35 09/15/18 07:00 PT 19.0 SECONDS (9.4-12.5) H 09/11/18 19:00 INR 1.71 09/11/18 19:00 APTT 58.1 Seconds (26.9-38.3) H 09/11/18 19:00 - Respiratory Exam Respiratory Exam: Clear to Ausculation Bilateral, NORMAL BREATHING PATTERN - Cardiovascular Exam Cardiovascular Exam: REGULAR RHYTHM - GI/Abdominal Exam GI & Abdominal Exam: Soft, Normal Bowel Sounds - Extremities Exam Extremities Exam: Pedal Edema - Neurological Exam Neurological Exam: Alert, Awake Assessment and Plan (1) CHF exacerbation Status: Acute (2) Leg edema Status: Acute (3) Cellulitis Status: Acute (4) Hypokalemia Status: Acute (5) Atrial fibrillation Assessment & Plan: continue IV Abx, wound care, ID/cardio/podiatry follow-up, for DC planning Status: Chronic (6) COPD (chronic obstructive pulmonary disease) Status: Chronic
[2018-09-15] MEDS: Digoxin 250 mcg (0.25 mg) Tab PO SCH (13:21)
[2018-09-15] MEDS: Clotrimazole/Betamethasone Lotion(30 ml) TOP SCH ×2 (13:22→17:44)
--- NOTE | 2018-09-15 14:54 | CP.PCM.PN ---
Subjective - Date & Time of Evaluation Date of Evaluation: 09/15/18 Time of Evaluation: 14:05 - Subjective Subjective: Comfortable in bed, less pain and swelling of the legs, no fevers. Objective - Vital Signs/Intake and Output Vital Signs (last 24 hours): Temp Pulse Resp BP Pulse Ox 98.7 F 85 19 130/70 95 09/15/18 12:00 09/15/18 12:00 09/15/18 12:00 09/15/18 12:00 09/15/18 05:37 Intake and Output: 09/15/18 09/15/18 06:59 18:59 Intake Total 1290 Output Total 950 Balance 340 - Medications Medications: Current Medications Alprazolam (Xanax) 1 mg PO TID PRN; Protocol PRN Reason: Anxiety Last Admin: 09/14/18 21:43 Dose: 1 mg Betamethasone/Clotrimazole (Lotrisone) 0 ml TOP BID [facility] Last Admin: 09/15/18 13:22 Dose: 1 applic Dabigatran (Pradaxa) 150 mg PO BID [facility]; Protocol Last Admin: 09/15/18 09:38 Dose: 150 mg Digoxin (Lanoxin) 0.25 mg PO 1400 [facility] Last Admin: 09/15/18 13:21 Dose: 0.25 mg Diltiazem HCl (Cardizem Cd) 240 mg PO DAILY [facility] Last Admin: 09/15/18 09:37 Dose: 240 mg Furosemide (Lasix) 80 mg IVP DAILY [facility] Last Admin: 09/15/18 09:38 Dose: 80 mg Linezolid (Zyvox 600mg/300ml D5w) 600 mg in 300 mls @ 200 mls/hr IVPB Q12 [facility]; Protocol Stop: 09/19/18 10:01 Last Admin: 09/15/18 10:57 Dose: 200 mls/hr Aztreonam (Azactam 1 Gm) 100 mls @ 100 mls/hr IVPB Q8 [facility]; Protocol Stop: 09/19/18 14:01 Last Admin: 09/15/18 13:21 Dose: 100 mls/hr Insulin Human Regular (Humulin R Low) 0 units SC ACHS [facility]; Protocol Last Admin: 09/15/18 13:08 Dose: Not Given Metolazone (Zaroxolyn) 5 mg PO DAILY [facility] Stop: 09/15/18 23:59 Last Admin: 09/15/18 09:38 Dose: 5 mg Metolazone (Zaroxolyn) 5 mg PO DAILY [facility] Mupirocin (Bactroban Ointment) 0 gm NS BID [facility] Stop: 09/18/18 18:01 Last Admin: 09/15/18 09:28 Dose: Not Given Oxycodone/Acetaminophen (Percocet 10/325 Mg Tab) 1 tab PO Q6H PRN PRN Reason: Pain, moderate (4-7) Last Admin: 09/15/18 13:21 Dose: 1 tab Potassium Chloride (K-Dur 20 Meq Er Tab) 20 meq PO BRK [facility] Last Admin: 09/15/18 08:05 Dose: 20 meq Spironolactone (Aldactone) 25 mg PO BID [facility] Last Admin: 09/15/18 09:38 Dose: 25 mg - Labs Labs: 09/13/18 06:35 09/15/18 07:00 PT 19.0 SECONDS (9.4-12.5) H 09/11/18 19:00 INR 1.71 09/11/18 19:00 APTT 58.1 Seconds (26.9-38.3) H 09/11/18 19:00 - Constitutional Appears: No Acute Distress, Chronically Ill - Head Exam Head Exam: NORMAL INSPECTION - ENT Exam ENT Exam: Mucous Membranes Moist - Respiratory Exam Respiratory Exam: Decreased Breath Sounds - Cardiovascular Exam Cardiovascular Exam: +S1, +S2 - GI/Abdominal Exam GI & Abdominal Exam: Soft. absent: Tenderness - Extremities Exam Additional comments: both legs with dressings in place Assessment and Plan - Assessment and Plan (Free Text) Plan: Assessment consider bilateral lower extremity skin and skin structure infection with open wounds in this patient with chronic venous stasis chronic CHF history of severe sepsis with acute on chronic renal failure due to bilateral lower extremity cellulitis in this patient with chronic venous stasis and lymphedema and history of lower extremity cellulitis, slowly improving - grew Acinetobacter, MRSA and Stenotrophomonas chronic lower extremity edema CAD HTN atrial fibrillation DM JOSELINE morbid obesity with BMI 44 Plan continue Zyvox and Azactam day 4 of 5-7 days based on previous cultures and will follow up blood and wound cx follow up further Podiatry recommendations follow up recommendations of Cardiology for the CHF will continue to monitor clinically
[2018-09-16] MEDS: Oxycodone/Acetaminophen 10/325 mg Tab PO PRN ×3 (03:24→21:32)
[2018-09-16] MEDS: Aztreonam 1 Gm in NS 100mL 100 ML IVPB SCH ×3 (05:10→21:32)
--- NOTE | 2018-09-16 06:59 | CP.PCM.PN ---
Subjective - Date & Time of Evaluation Date of Evaluation: 09/16/18 Time of Evaluation: 06:20 - Subjective Subjective: Sitting side of bed, Awake, alert, no distress Reason for consultation and follow up:Cardiac evaluation, history of congestive heart failure, admitted for leg swelling, history of chronic lower extremity cellulitis, coronary artery disease,hypertension, diabetes Seen and examined by me and Dr. Vargas Objective - Vital Signs/Intake and Output Vital Signs (last 24 hours): Temp Pulse Resp BP Pulse Ox 97.5 F L 76 19 110/52 L 98 09/16/18 05:49 09/16/18 05:49 09/16/18 05:49 09/16/18 05:49 09/16/18 05:49 Intake and Output: 09/15/18 09/16/18 18:59 06:59 Intake Total 1000 Output Total 1775 Balance -775 - Medications Medications: Current Medications Alprazolam (Xanax) 1 mg PO TID PRN; Protocol PRN Reason: Anxiety Last Admin: 09/15/18 20:00 Dose: 1 mg Betamethasone/Clotrimazole (Lotrisone) 0 ml TOP BID [facility] Last Admin: 09/15/18 17:44 Dose: 1 applic Dabigatran (Pradaxa) 150 mg PO BID [facility]; Protocol Last Admin: 09/15/18 17:43 Dose: 150 mg Digoxin (Lanoxin) 0.25 mg PO 1400 [facility] Last Admin: 09/15/18 13:21 Dose: 0.25 mg Diltiazem HCl (Cardizem Cd) 240 mg PO DAILY [facility] Last Admin: 09/15/18 09:37 Dose: 240 mg Furosemide (Lasix) 80 mg IVP DAILY [facility] Last Admin: 09/15/18 09:38 Dose: 80 mg Linezolid (Zyvox 600mg/300ml D5w) 600 mg in 300 mls @ 200 mls/hr IVPB Q12 [facility]; Protocol Stop: 09/19/18 10:01 Last Admin: 09/15/18 23:16 Dose: 200 mls/hr Aztreonam (Azactam 1 Gm) 100 mls @ 100 mls/hr IVPB Q8 [facility]; Protocol Stop: 09/19/18 14:01 Last Admin: 09/16/18 05:10 Dose: 100 mls/hr Insulin Human Regular (Humulin R Low) 0 units SC ACHS [facility]; Protocol Last Admin: 09/15/18 21:53 Dose: Not Given Metolazone (Zaroxolyn) 5 mg PO DAILY [facility] Mupirocin (Bactroban Ointment) 0 gm NS BID [facility] Stop: 09/18/18 18:01 Last Admin: 09/15/18 17:43 Dose: 1 applic Oxycodone/Acetaminophen (Percocet 10/325 Mg Tab) 1 tab PO Q6H PRN PRN Reason: Pain, moderate (4-7) Last Admin: 09/16/18 03:24 Dose: 1 tab Potassium Chloride (K-Dur 20 Meq Er Tab) 20 meq PO BRK [facility] Last Admin: 09/15/18 08:05 Dose: 20 meq Spironolactone (Aldactone) 25 mg PO BID [facility] Last Admin: 09/15/18 17:42 Dose: 25 mg - Labs Labs: 09/13/18 06:35 09/15/18 07:00 PT 19.0 SECONDS (9.4-12.5) H 09/11/18 19:00 INR 1.71 09/11/18 19:00 APTT 58.1 Seconds (26.9-38.3) H 09/11/18 19:00 - Constitutional Appears: Non-toxic, No Acute Distress - Head Exam Head Exam: NORMAL INSPECTION, NORMOCEPHALIC - Eye Exam Eye Exam: Normal appearance Pupil Exam: NORMAL ACCOMODATION - ENT Exam ENT Exam: Mucous Membranes Moist, Normal Exam - Respiratory Exam Respiratory Exam: Decreased Breath Sounds, NORMAL BREATHING PATTERN - Cardiovascular Exam Cardiovascular Exam: +S1, +S2 - GI/Abdominal Exam GI & Abdominal Exam: Soft, Normal Bowel Sounds - Extremities Exam Additional comments: bilateral leg cellulitis, less edema 3+edema - Neurological Exam Neurological Exam: Alert, Awake, Oriented x3 - Psychiatric Exam Psychiatric exam: Normal Affect, Normal Mood - Skin Skin Exam: Dry, Normal Color, Warm Assessment and Plan - Assessment and Plan (Free Text) Assessment: A 58 year old male morbidly obese, who came in to the ER due to leg swelling and shortness of breath. History of chronic lower extremity cellulitis, non obstructive coronary artery disease,hypertension, diabetes,COPD, congestive heart failure, chronic atrial fibrillation, on Pradaxa, JOSELINE, chronic venous insufficiency, former smoker. Recent Echo on 04/23/2018 showed normal LVEF.Severe pulmonary hypertension RVSP71 mmHg,trace MR/TR. Chest X ray on admission was normal. No pulmonary congestion. EKG Atrial fibrillation at rapid rate 127/min. Troponin normal. Elevated BNP. Exacerbation of COPD. IV antibiotics for cellulitis, ID on consult. Podiatry on consult. Cardiac status stable. Shortness of breath improved. Plan: No distress, Denies shortness of breath Cardiac status stable Heart rate controlled Blood pressure controlled On Pradaxa 150 mg BID, Digoxin 0.25 mg daily,Cardizem CD 240 mg daily Lasix 80 mg daily,Zaroxolyn 5 mg daily, Kdur 20 meq daily Continue IV antibiotics for cellulitis per ID Continue current treatment Continue current medications Glucose controlled Podiatry on consult Discharge planning Will follow up Plan and treatment discussed with Dr. Vargas
[2018-09-16] MEDS: Insulin Reg-LOW-Coverage SC SCH ×4 (08:28→23:07)
[2018-09-16] MEDS: Potassium Chloride 20 mEq ER Tab PO SCH (08:56)
--- NOTE | 2018-09-16 10:22 | CP.PCM.PN ---
Subjective - Date & Time of Evaluation Date of Evaluation: 09/16/18 Time of Evaluation: 07:40 - Subjective Subjective: No fevers, not in distress. Objective - Vital Signs/Intake and Output Vital Signs (last 24 hours): Temp Pulse Resp BP Pulse Ox 98.7 F 85 19 130/70 95 09/15/18 12:00 09/15/18 12:00 09/15/18 12:00 09/15/18 12:00 09/15/18 05:37 Intake and Output: 09/15/18 09/15/18 06:59 18:59 Intake Total 1290 Output Total 950 Balance 340 - Medications Medications: Current Medications Alprazolam (Xanax) 1 mg PO TID PRN; Protocol PRN Reason: Anxiety Last Admin: 09/14/18 21:43 Dose: 1 mg Betamethasone/Clotrimazole (Lotrisone) 0 ml TOP BID [facility] Last Admin: 09/15/18 13:22 Dose: 1 applic Dabigatran (Pradaxa) 150 mg PO BID [facility]; Protocol Last Admin: 09/15/18 09:38 Dose: 150 mg Digoxin (Lanoxin) 0.25 mg PO 1400 [facility] Last Admin: 09/15/18 13:21 Dose: 0.25 mg Diltiazem HCl (Cardizem Cd) 240 mg PO DAILY [facility] Last Admin: 09/15/18 09:37 Dose: 240 mg Furosemide (Lasix) 80 mg IVP DAILY [facility] Last Admin: 09/15/18 09:38 Dose: 80 mg Linezolid (Zyvox 600mg/300ml D5w) 600 mg in 300 mls @ 200 mls/hr IVPB Q12 [facility]; Protocol Stop: 09/19/18 10:01 Last Admin: 09/15/18 10:57 Dose: 200 mls/hr Aztreonam (Azactam 1 Gm) 100 mls @ 100 mls/hr IVPB Q8 [facility]; Protocol Stop: 09/19/18 14:01 Last Admin: 09/15/18 13:21 Dose: 100 mls/hr Insulin Human Regular (Humulin R Low) 0 units SC ACHS [facility]; Protocol Last Admin: 09/15/18 13:08 Dose: Not Given Metolazone (Zaroxolyn) 5 mg PO DAILY [facility] Stop: 09/15/18 23:59 Last Admin: 09/15/18 09:38 Dose: 5 mg Metolazone (Zaroxolyn) 5 mg PO DAILY [facility] Mupirocin (Bactroban Ointment) 0 gm NS BID [facility] Stop: 09/18/18 18:01 Last Admin: 09/15/18 09:28 Dose: Not Given Oxycodone/Acetaminophen (Percocet 10/325 Mg Tab) 1 tab PO Q6H PRN PRN Reason: Pain, moderate (4-7) Last Admin: 09/15/18 13:21 Dose: 1 tab Potassium Chloride (K-Dur 20 Meq Er Tab) 20 meq PO BRK [facility] Last Admin: 09/15/18 08:05 Dose: 20 meq Spironolactone (Aldactone) 25 mg PO BID [facility] Last Admin: 09/15/18 09:38 Dose: 25 mg - Labs Labs: 09/13/18 06:35 09/15/18 07:00 PT 19.0 SECONDS (9.4-12.5) H 09/11/18 19:00 INR 1.71 09/11/18 19:00 APTT 58.1 Seconds (26.9-38.3) H 09/11/18 19:00 - Constitutional Appears: No Acute Distress, Chronically Ill - Head Exam Head Exam: NORMAL INSPECTION - Respiratory Exam Respiratory Exam: Decreased Breath Sounds - Cardiovascular Exam Cardiovascular Exam: +S1, +S2 - GI/Abdominal Exam GI & Abdominal Exam: Soft. absent: Tenderness - Extremities Exam Additional comments: both legs with dressings in place Assessment and Plan - Assessment and Plan (Free Text) Plan: Assessment consider bilateral lower extremity skin and skin structure infection with open wounds in this patient with chronic venous stasis chronic CHF history of severe sepsis with acute on chronic renal failure due to bilateral lower extremity cellulitis in this patient with chronic venous stasis and lymphedema and history of lower extremity cellulitis, slowly improving - grew Acinetobacter, MRSA and Stenotrophomonas chronic lower extremity edema CAD HTN atrial fibrillation DM JOSELINE morbid obesity with BMI 44 Plan continue Zyvox and Azactam day 5 of 5-7 days based on previous cultures - new cultures from legs showing Achromobacter and MRSA follow up further Podiatry recommendations follow up recommendations of Cardiology for the CHF will continue to monitor clinically
--- NOTE | 2018-09-16 10:36 | CP.PCM.PN ---
<Ivan Fontana - Last Filed: 09/16/18 13:15> Subjective - Date & Time of Evaluation Date of Evaluation: 09/16/18 Time of Evaluation: 10:35 - Subjective Subjective: Podiatry Progress Note - Drs. Meadows/Vincent 58M seen and evaluated this AM with Dr. Kaur for bilateral lower extremity edema and venous stasis ulcerations. Patient resting comfortably, hemodynamically stable and NAD. No acute events overnight. Pain in legs well- controlled. No new lower extremity complaints. Dressings clean/dry/intact. Denies n/v/f/d/c/sob/soto/cp. Objective - Vital Signs/Intake and Output Vital Signs (last 24 hours): Temp Pulse Resp BP Pulse Ox 97.5 F L 76 19 110/52 L 98 09/16/18 05:49 09/16/18 05:49 09/16/18 05:49 09/16/18 05:49 09/16/18 05:49 Intake and Output: 09/16/18 09/16/18 06:59 18:59 Intake Total 1000 Output Total 1775 Balance -775 - Medications Medications: Current Medications Alprazolam (Xanax) 1 mg PO TID PRN; Protocol PRN Reason: Anxiety Last Admin: 09/15/18 20:00 Dose: 1 mg Betamethasone/Clotrimazole (Lotrisone) 0 ml TOP BID [facility] Last Admin: 09/15/18 17:44 Dose: 1 applic Dabigatran (Pradaxa) 150 mg PO BID [facility]; Protocol Last Admin: 09/15/18 17:43 Dose: 150 mg Digoxin (Lanoxin) 0.25 mg PO 1400 [facility] Last Admin: 09/15/18 13:21 Dose: 0.25 mg Diltiazem HCl (Cardizem Cd) 240 mg PO DAILY [facility] Last Admin: 09/15/18 09:37 Dose: 240 mg Furosemide (Lasix) 80 mg IVP DAILY [facility] Last Admin: 09/15/18 09:38 Dose: 80 mg Linezolid (Zyvox 600mg/300ml D5w) 600 mg in 300 mls @ 200 mls/hr IVPB Q12 [facility]; Protocol Stop: 09/19/18 10:01 Last Admin: 09/15/18 23:16 Dose: 200 mls/hr Aztreonam (Azactam 1 Gm) 100 mls @ 100 mls/hr IVPB Q8 [facility]; Protocol Stop: 09/19/18 14:01 Last Admin: 09/16/18 05:10 Dose: 100 mls/hr Insulin Human Regular (Humulin R Low) 0 units SC ACHS [facility]; Protocol Last Admin: 09/16/18 08:28 Dose: Not Given Metolazone (Zaroxolyn) 5 mg PO DAILY [facility] Mupirocin (Bactroban Ointment) 0 gm NS BID [facility] Stop: 09/18/18 18:01 Last Admin: 09/15/18 17:43 Dose: 1 applic Potassium Chloride (K-Dur 20 Meq Er Tab) 20 meq PO BRK [facility] Last Admin: 09/16/18 08:56 Dose: 20 meq Spironolactone (Aldactone) 25 mg PO BID [facility] Last Admin: 09/15/18 17:42 Dose: 25 mg - Labs Labs: 09/13/18 06:35 09/15/18 07:00 PT 19.0 SECONDS (9.4-12.5) H 09/11/18 19:00 INR 1.71 09/11/18 19:00 APTT 58.1 Seconds (26.9-38.3) H 09/11/18 19:00 - Constitutional Appears: Well, Non-toxic, No Acute Distress - Head Exam Head Exam: NORMOCEPHALIC - Extremities Exam Additional comments: LE focused exam: Vasc: Nonpalpable DP and PT pulses secondary to chronic indurated edema b/l. Temperature gradient warm to warm b/l. +2 pitting edema bilaterally. Ortho: Diffuse tenderness upon palpation noted to bilateral LE. Neuro: Gross and protective sensation diminishedb/l. Derm: Mild drainage from L hallux ulceration, mild weeping at b/l LE. Rubor present to b/l lower extremities beginning from tibial tuberosity extending distally to digits, small breaks in the skin noted to b/l lower extremities, no malodor appreciated, no purulence, no fluctuance, no tracking, no tunneling, no undermining, no probe to bone, significant xerosis to b/l lower extremities. - Neurological Exam Neurological Exam: Alert, Awake, Oriented x3 - Psychiatric Exam Psychiatric exam: Normal Affect, Normal Mood Assessment and Plan - Assessment and Plan (Free Text) Assessment: 58M with b/l lower extremity venous stasis ulcerations and edema Plan: Patient seen and evaluated with Dr. Vincent COOPER, absent leukocytosis Continue local wound care: saline cleanse, right leg optifoam, left first and second digit betadine DSD, legs left exposed to air in attempt to assist in drying of legs Left hallux wound culture - MRSA, alcaligenes faecalis, achromobacter species Continue abx per ID Pain control per medicine Podiatry will continue to follow <Andres Kaur - Last Filed: 09/16/18 16:25> Objective - Vital Signs/Intake and Output Vital Signs (last 24 hours): Temp Pulse Resp BP Pulse Ox 98.6 F 74 20 181/87 H 98 09/16/18 12:00 09/16/18 12:00 09/16/18 12:00 09/16/18 12:00 09/16/18 05:49 Intake and Output: 09/16/18 09/16/18 06:59 18:59 Intake Total 1000 Output Total 1775 Balance -775 - Medications Medications: Current Medications Alprazolam (Xanax) 1 mg PO TID PRN; Protocol PRN Reason: Anxiety Last Admin: 09/15/18 20:00 Dose: 1 mg Betamethasone/Clotrimazole (Lotrisone) 0 ml TOP BID [facility] Last Admin: 09/16/18 11:00 Dose: 1 applic Dabigatran (Pradaxa) 150 mg PO BID [facility]; Protocol Last Admin: 09/16/18 10:58 Dose: 150 mg Digoxin (Lanoxin) 0.25 mg PO 1400 [facility] Last Admin: 09/16/18 13:31 Dose: 0.25 mg Diltiazem HCl (Cardizem Cd) 240 mg PO DAILY [facility] Last Admin: 09/16/18 10:58 Dose: 240 mg Furosemide (Lasix) 80 mg IVP DAILY [facility] Last Admin: 09/16/18 10:57 Dose: 80 mg Linezolid (Zyvox 600mg/300ml D5w) 600 mg in 300 mls @ 200 mls/hr IVPB Q12 [facility]; Protocol Stop: 09/19/18 10:01 Last Admin: 09/16/18 10:56 Dose: 200 mls/hr Aztreonam (Azactam 1 Gm) 100 mls @ 100 mls/hr IVPB Q8 [facility]; Protocol Stop: 09/19/18 14:01 Last Admin: 09/16/18 13:32 Dose: 100 mls/hr Insulin Human Regular (Humulin R Low) 0 units SC ACHS [facility]; Protocol Last Admin: 09/16/18 12:46 Dose: Not Given Metolazone (Zaroxolyn) 5 mg PO DAILY [facility] Last Admin: 09/16/18 10:58 Dose: 5 mg Mupirocin (Bactroban Ointment) 0 gm NS BID [facility] Stop: 09/18/18 18:01 Last Admin: 09/16/18 10:59 Dose: 1 applic Oxycodone/Acetaminophen (Percocet 10/325 Mg Tab) 1 tab PO Q6H PRN PRN Reason: Pain, moderate (4-7) Last Admin: 09/16/18 12:41 Dose: 1 tab Potassium Chloride (K-Dur 20 Meq Er Tab) 20 meq PO BRK [facility] Last Admin: 09/16/18 08:56 Dose: 20 meq Spironolactone (Aldactone) 25 mg PO BID [facility] Last Admin: 09/16/18 10:58 Dose: 25 mg - Labs Labs: 09/13/18 06:35 09/15/18 07:00 PT 19.0 SECONDS (9.4-12.5) H 09/11/18 19:00 INR 1.71 09/11/18 19:00 APTT 58.1 Seconds (26.9-38.3) H 09/11/18 19:00 Attending/Attestation - Attestation I have personally seen and examined this patient.: Yes I have fully participated in the care of the patient.: Yes I have reviewed all pertinent clinical information, including history, physical exam and plan: Yes
[2018-09-16] MEDS: Linezolid 600 mg in D5W 300 ml 600 MG/300 ML BAG IVPB SCH ×2 (10:56→21:36)
[2018-09-16] MEDS: diltiaZEM 240 mg/24 Hours CD Cap PO SCH (10:58)
[2018-09-16] MEDS: metOLazone 5 MG TAB PO SCH (10:58)
[2018-09-16] MEDS: Mupirocin 2% Ointment 15 GM TUBE NS SCH ×2 (10:59→18:43)
[2018-09-16] MEDS: Clotrimazole/Betamethasone Lotion(30 ml) TOP SCH ×2 (11:00→18:42)
--- NOTE | 2018-09-16 11:51 | CP.PCM.PN ---
Subjective - Date & Time of Evaluation Date of Evaluation: 09/16/18 Time of Evaluation: 11:30 - Subjective Subjective: NAD, no chest pain, no SOB Objective - Vital Signs/Intake and Output Vital Signs (last 24 hours): Temp Pulse Resp BP Pulse Ox 97.5 F L 79 19 110/52 L 98 09/16/18 05:49 09/16/18 10:58 09/16/18 05:49 09/16/18 10:58 09/16/18 05:49 Intake and Output: 09/16/18 09/16/18 06:59 18:59 Intake Total 1000 Output Total 1775 Balance -775 - Medications Medications: Current Medications Alprazolam (Xanax) 1 mg PO TID PRN; Protocol PRN Reason: Anxiety Last Admin: 09/15/18 20:00 Dose: 1 mg Betamethasone/Clotrimazole (Lotrisone) 0 ml TOP BID [facility] Last Admin: 09/16/18 11:00 Dose: 1 applic Dabigatran (Pradaxa) 150 mg PO BID [facility]; Protocol Last Admin: 09/16/18 10:58 Dose: 150 mg Digoxin (Lanoxin) 0.25 mg PO 1400 [facility] Last Admin: 09/15/18 13:21 Dose: 0.25 mg Diltiazem HCl (Cardizem Cd) 240 mg PO DAILY [facility] Last Admin: 09/16/18 10:58 Dose: 240 mg Furosemide (Lasix) 80 mg IVP DAILY [facility] Last Admin: 09/16/18 10:57 Dose: 80 mg Linezolid (Zyvox 600mg/300ml D5w) 600 mg in 300 mls @ 200 mls/hr IVPB Q12 [facility]; Protocol Stop: 09/19/18 10:01 Last Admin: 09/16/18 10:56 Dose: 200 mls/hr Aztreonam (Azactam 1 Gm) 100 mls @ 100 mls/hr IVPB Q8 [facility]; Protocol Stop: 09/19/18 14:01 Last Admin: 09/16/18 05:10 Dose: 100 mls/hr Insulin Human Regular (Humulin R Low) 0 units SC ACHS [facility]; Protocol Last Admin: 09/16/18 08:28 Dose: Not Given Metolazone (Zaroxolyn) 5 mg PO DAILY [facility] Last Admin: 09/16/18 10:58 Dose: 5 mg Mupirocin (Bactroban Ointment) 0 gm NS BID [facility] Stop: 09/18/18 18:01 Last Admin: 09/16/18 10:59 Dose: 1 applic Oxycodone/Acetaminophen (Percocet 10/325 Mg Tab) 1 tab PO Q6H PRN PRN Reason: Pain, moderate (4-7) Potassium Chloride (K-Dur 20 Meq Er Tab) 20 meq PO BRK [facility] Last Admin: 09/16/18 08:56 Dose: 20 meq Spironolactone (Aldactone) 25 mg PO BID [facility] Last Admin: 09/16/18 10:58 Dose: 25 mg - Labs Labs: 09/13/18 06:35 09/15/18 07:00 PT 19.0 SECONDS (9.4-12.5) H 09/11/18 19:00 INR 1.71 09/11/18 19:00 APTT 58.1 Seconds (26.9-38.3) H 09/11/18 19:00 - Respiratory Exam Respiratory Exam: Clear to Ausculation Bilateral, NORMAL BREATHING PATTERN - Cardiovascular Exam Cardiovascular Exam: REGULAR RHYTHM - GI/Abdominal Exam GI & Abdominal Exam: Soft, Normal Bowel Sounds - Extremities Exam Extremities Exam: Pedal Edema - Neurological Exam Neurological Exam: Alert, Awake Assessment and Plan (1) CHF exacerbation Status: Acute (2) Leg edema Status: Acute (3) Cellulitis Status: Acute (4) Hypokalemia Status: Acute (5) Atrial fibrillation Status: Chronic (6) COPD (chronic obstructive pulmonary disease) Status: Chronic - Assessment and Plan (Free Text) Plan: continue IV Abx, wound care, ID/cardio/podiatry follow-up, for DC planning
[2018-09-16] MEDS: Digoxin 250 mcg (0.25 mg) Tab PO SCH (13:31)
[2018-09-17] MEDS: Aztreonam 1 Gm in NS 100mL 100 ML IVPB SCH (05:32)
[2018-09-17 05:46] VITALS: O2SAT 96
--- NOTE | 2018-09-17 07:13 | CP.PCM.PN ---
Subjective - Date & Time of Evaluation Date of Evaluation: 09/17/18 Time of Evaluation: 06:15 - Subjective Subjective: Lying in bed, Awake, alert, no distress Reason for consultation and follow up:Cardiac evaluation, history of congestive heart failure, admitted for leg swelling, history of chronic lower extremity cellulitis, coronary artery disease,hypertension, diabetes Seen and examined by me and Dr. Vargas Objective - Vital Signs/Intake and Output Vital Signs (last 24 hours): Temp Pulse Resp BP Pulse Ox 98 F 7 L 20 116/72 96 09/17/18 05:45 09/17/18 05:45 09/17/18 05:45 09/17/18 05:45 09/17/18 05:45 Intake and Output: 09/17/18 09/17/18 06:59 18:59 Intake Total 4300 Output Total 9100 Balance -4800 - Medications Medications: Current Medications Alprazolam (Xanax) 1 mg PO TID PRN; Protocol PRN Reason: Anxiety Last Admin: 09/16/18 22:36 Dose: 1 mg Betamethasone/Clotrimazole (Lotrisone) 0 ml TOP BID [facility] Last Admin: 09/16/18 18:42 Dose: 1 applic Dabigatran (Pradaxa) 150 mg PO BID [facility]; Protocol Last Admin: 09/16/18 18:42 Dose: 150 mg Digoxin (Lanoxin) 0.25 mg PO 1400 [facility] Last Admin: 09/16/18 13:31 Dose: 0.25 mg Diltiazem HCl (Cardizem Cd) 240 mg PO DAILY [facility] Last Admin: 09/16/18 10:58 Dose: 240 mg Furosemide (Lasix) 80 mg IVP DAILY [facility] Last Admin: 09/16/18 10:57 Dose: 80 mg Linezolid (Zyvox 600mg/300ml D5w) 600 mg in 300 mls @ 200 mls/hr IVPB Q12 [facility]; Protocol Stop: 09/19/18 10:01 Last Admin: 09/16/18 21:36 Dose: 200 mls/hr Aztreonam (Azactam 1 Gm) 100 mls @ 100 mls/hr IVPB Q8 [facility]; Protocol Stop: 09/19/18 14:01 Last Admin: 09/17/18 05:32 Dose: 100 mls/hr Insulin Human Regular (Humulin R Low) 0 units SC ACHS [facility]; Protocol Last Admin: 09/16/18 23:07 Dose: Not Given Metolazone (Zaroxolyn) 5 mg PO DAILY [facility] Last Admin: 09/16/18 10:58 Dose: 5 mg Mupirocin (Bactroban Ointment) 0 gm NS BID [facility] Stop: 09/18/18 18:01 Last Admin: 09/16/18 18:43 Dose: 1 applic Oxycodone/Acetaminophen (Percocet 10/325 Mg Tab) 1 tab PO Q6H PRN PRN Reason: Pain, moderate (4-7) Last Admin: 09/16/18 21:32 Dose: 1 tab Potassium Chloride (K-Dur 20 Meq Er Tab) 20 meq PO BRK [facility] Last Admin: 09/16/18 08:56 Dose: 20 meq Spironolactone (Aldactone) 25 mg PO BID [facility] Last Admin: 09/16/18 18:42 Dose: 25 mg - Labs Labs: 09/13/18 06:35 09/15/18 07:00 PT 19.0 SECONDS (9.4-12.5) H 09/11/18 19:00 INR 1.71 09/11/18 19:00 APTT 58.1 Seconds (26.9-38.3) H 09/11/18 19:00 - Constitutional Appears: Non-toxic, No Acute Distress - Head Exam Head Exam: NORMAL INSPECTION, NORMOCEPHALIC - Eye Exam Eye Exam: Normal appearance Pupil Exam: NORMAL ACCOMODATION - ENT Exam ENT Exam: Mucous Membranes Moist, Normal Exam - Respiratory Exam Respiratory Exam: Decreased Breath Sounds, NORMAL BREATHING PATTERN - Cardiovascular Exam Cardiovascular Exam: +S1, +S2 - GI/Abdominal Exam GI & Abdominal Exam: Soft, Normal Bowel Sounds - Extremities Exam Additional comments: bilateral sampson wrapped 3+edema, less edema compared to admission - Neurological Exam Neurological Exam: Alert, Awake, Oriented x3 - Psychiatric Exam Psychiatric exam: Normal Affect, Normal Mood - Skin Skin Exam: Dry, Normal Color, Warm Assessment and Plan - Assessment and Plan (Free Text) Assessment: A 58 year old male morbidly obese, who came in to the ER due to leg swelling and shortness of breath. History of chronic lower extremity cellulitis, non obstructive coronary artery disease,hypertension, diabetes,COPD, congestive heart failure, chronic atrial fibrillation, on Pradaxa, JOSELINE, chronic venous insufficiency, former smoker. Recent Echo on 04/23/2018 showed normal LVEF.Severe pulmonary hypertension RVSP71 mmHg,trace MR/TR. Chest X ray on admission was normal. No pulmonary congestion. EKG Atrial fibrillation at rapid rate 127/min. Troponin normal. Elevated BNP. Exacerbation of COPD. IV antibiotics for cellulitis, ID on consult. Podiatry on consult. Cardiac status stable. Clinically improved. Toe culture positive for MRSA/ Alcaligenes Faecalis. Plan: Denies shortness of breath Cardiac status stable Heart rate controlled Blood pressure controlled On Pradaxa 150 mg BID, Digoxin 0.25 mg daily,Cardizem CD 240 mg daily Lasix 80 mg daily,Zaroxolyn 5 mg daily, Kdur 20 meq daily Continue IV antibiotics for per ID Toe culture positive for MRSA/Alcaligenes Faecalis Continue current treatment Continue current medications Glucose controlled Podiatry on consult Discharge planning Will follow up Plan and treatment discussed with Dr. Vargas
[2018-09-17] MEDS ORDERED: Potassium Chloride 20 mEq ER Tab PO ONE (09:13)
[2018-09-17] MEDS: Insulin Reg-LOW-Coverage SC SCH ×4 (09:33→22:41)
--- NOTE | 2018-09-17 09:42 | CP.PCM.PN ---
Subjective - Date & Time of Evaluation Date of Evaluation: 09/17/18 Time of Evaluation: 09:40 - Subjective Subjective: Podiatry Progress Note - Drs. Meadows/Vincent 58M seen and evaluated this AM for bilateral lower extremity edema and venous stasis ulcerations. Patient resting comfortably, hemodynamically stable and NAD. No acute events overnight. Pain in legs well-controlled. No new lower extremity complaints. Dressings clean/dry/intact. Denies n/v/f/d/c/sob/soto/cp. Objective - Vital Signs/Intake and Output Vital Signs (last 24 hours): Temp Pulse Resp BP Pulse Ox 98 F 7 L 20 116/72 96 09/17/18 05:45 09/17/18 05:45 09/17/18 05:45 09/17/18 05:45 09/17/18 05:45 Intake and Output: 09/17/18 09/17/18 06:59 18:59 Intake Total 4300 Output Total 9100 Balance -4800 - Medications Medications: Current Medications Alprazolam (Xanax) 1 mg PO TID PRN; Protocol PRN Reason: Anxiety Last Admin: 09/16/18 22:36 Dose: 1 mg Betamethasone/Clotrimazole (Lotrisone) 0 ml TOP BID ON LICENSE OF [facility] Last Admin: 09/16/18 18:42 Dose: 1 applic Dabigatran (Pradaxa) 150 mg PO BID ON [facility] OF [facility]; Protocol Last Admin: 09/16/18 18:42 Dose: 150 mg Digoxin (Lanoxin) 0.25 mg PO 1400 [facility] Last Admin: 09/16/18 13:31 Dose: 0.25 mg Diltiazem HCl (Cardizem Cd) 240 mg PO DAILY ON [facility] OF [facility] Last Admin: 09/16/18 10:58 Dose: 240 mg Furosemide (Lasix) 80 mg IVP DAILY [facility] Last Admin: 09/16/18 10:57 Dose: 80 mg Linezolid (Zyvox 600mg/300ml D5w) 600 mg in 300 mls @ 200 mls/hr IVPB Q12 [facility]; Protocol Stop: 09/19/18 10:01 Last Admin: 09/16/18 21:36 Dose: 200 mls/hr Aztreonam (Azactam 1 Gm) 100 mls @ 100 mls/hr IVPB Q8 [facility]; Protocol Stop: 09/19/18 14:01 Last Admin: 09/17/18 05:32 Dose: 100 mls/hr Insulin Human Regular (Humulin R Low) 0 units SC ACHS ON [facility] OF [facility]; Protocol Last Admin: 09/17/18 09:33 Dose: Not Given Metolazone (Zaroxolyn) 5 mg PO DAILY [facility] Last Admin: 09/16/18 10:58 Dose: 5 mg Mupirocin (Bactroban Ointment) 0 gm NS BID ON [facility] Stop: 09/18/18 18:01 Last Admin: 09/16/18 18:43 Dose: 1 applic Oxycodone/Acetaminophen (Percocet 10/325 Mg Tab) 1 tab PO Q6H PRN PRN Reason: Pain, moderate (4-7) Last Admin: 09/16/18 21:32 Dose: 1 tab Potassium Chloride (K-Dur 20 Meq Er Tab) 20 meq PO BRK ON LICENSE OF [facility] Last Admin: 09/16/18 08:56 Dose: 20 meq Spironolactone (Aldactone) 25 mg PO BID ON [facility] OF [facility] Last Admin: 09/16/18 18:42 Dose: 25 mg - Labs Labs: 09/13/18 06:35 09/15/18 07:00 PT 19.0 SECONDS (9.4-12.5) H 09/11/18 19:00 INR 1.71 09/11/18 19:00 APTT 58.1 Seconds (26.9-38.3) H 09/11/18 19:00 - Constitutional Appears: Well, Non-toxic, No Acute Distress - Head Exam Head Exam: ATRAUMATIC, NORMOCEPHALIC - Extremities Exam Additional comments: LE focused exam: Vasc: Nonpalpable DP and PT pulses secondary to chronic indurated edema b/l. Temperature gradient warm to warm b/l. +2 pitting edema bilaterally. Ortho: Diffuse tenderness upon palpation noted to bilateral LE. Neuro: Gross and protective sensation diminished b/l. Derm: Mild drainage from L hallux ulceration, mild weeping at b/l LE. Rubor present to b/l lower extremities beginning from tibial tuberosity extending distally to digits, small breaks in the skin noted to b/l lower extremities, no malodor appreciated, no purulence, no fluctuance, no tracking, no tunneling, no undermining, no probe to bone, significant xerosis to b/l lower extremities. - Neurological Exam Neurological Exam: Alert, Awake, Oriented x3 - Psychiatric Exam Psychiatric exam: Normal Affect, Normal Mood Assessment and Plan - Assessment and Plan (Free Text) Assessment: 58M with b/l lower extremity venous stasis ulcerations and edema Plan: Patient seen and evaluated with Dr. Abdiel COOPER, absent leukocytosis Clotrimazole applied to b/l lower legs Continue local wound care: saline cleanse, right leg optifoam, left first and second digit betadine DSD, legs left exposed to air in attempt to assist in drying of legs Left hallux wound culture - MRSA, alcaligenes faecalis, achromobacter species Continue abx per ID Pain control per medicine Podiatry will continue to follow
--- NOTE | 2018-09-17 10:32 | CP.PCM.PN ---
Subjective - Date & Time of Evaluation Date of Evaluation: 09/17/18 Time of Evaluation: 10:00 - Subjective Subjective: resting comfortably, NAD Objective - Vital Signs/Intake and Output Vital Signs (last 24 hours): Temp Pulse Resp BP Pulse Ox 98 F 7 L 20 116/72 96 09/17/18 05:45 09/17/18 05:45 09/17/18 05:45 09/17/18 05:45 09/17/18 05:45 Intake and Output: 09/17/18 09/17/18 06:59 18:59 Intake Total 4300 Output Total 9100 Balance -4800 - Medications Medications: Current Medications Alprazolam (Xanax) 1 mg PO TID PRN; Protocol PRN Reason: Anxiety Last Admin: 09/16/18 22:36 Dose: 1 mg Betamethasone/Clotrimazole (Lotrisone) 0 ml TOP BID [facility] Last Admin: 09/16/18 18:42 Dose: 1 applic Dabigatran (Pradaxa) 150 mg PO BID [facility]; Protocol Last Admin: 09/16/18 18:42 Dose: 150 mg Digoxin (Lanoxin) 0.25 mg PO 1400 [facility] Last Admin: 09/16/18 13:31 Dose: 0.25 mg Diltiazem HCl (Cardizem Cd) 240 mg PO DAILY [facility] Last Admin: 09/16/18 10:58 Dose: 240 mg Furosemide (Lasix) 80 mg IVP DAILY [facility] Last Admin: 09/16/18 10:57 Dose: 80 mg Linezolid (Zyvox 600mg/300ml D5w) 600 mg in 300 mls @ 200 mls/hr IVPB Q12 [facility]; Protocol Stop: 09/19/18 10:01 Last Admin: 09/16/18 21:36 Dose: 200 mls/hr Aztreonam (Azactam 1 Gm) 100 mls @ 100 mls/hr IVPB Q8 [facility]; Protocol Stop: 09/19/18 14:01 Last Admin: 09/17/18 05:32 Dose: 100 mls/hr Insulin Human Regular (Humulin R Low) 0 units SC ACHS [facility]; Protocol Last Admin: 09/17/18 09:33 Dose: Not Given Metolazone (Zaroxolyn) 5 mg PO DAILY [facility] Last Admin: 09/16/18 10:58 Dose: 5 mg Mupirocin (Bactroban Ointment) 0 gm NS BID [facility] Stop: 09/18/18 18:01 Last Admin: 09/16/18 18:43 Dose: 1 applic Oxycodone/Acetaminophen (Percocet 10/325 Mg Tab) 1 tab PO Q6H PRN PRN Reason: Pain, moderate (4-7) Last Admin: 09/16/18 21:32 Dose: 1 tab Potassium Chloride (K-Dur 20 Meq Er Tab) 20 meq PO BRK [facility] Last Admin: 09/16/18 08:56 Dose: 20 meq Spironolactone (Aldactone) 25 mg PO BID [facility] Last Admin: 09/16/18 18:42 Dose: 25 mg - Labs Labs: 09/13/18 06:35 09/15/18 07:00 PT 19.0 SECONDS (9.4-12.5) H 09/11/18 19:00 INR 1.71 09/11/18 19:00 APTT 58.1 Seconds (26.9-38.3) H 09/11/18 19:00 - Respiratory Exam Respiratory Exam: Clear to Ausculation Bilateral, NORMAL BREATHING PATTERN - Cardiovascular Exam Cardiovascular Exam: REGULAR RHYTHM - GI/Abdominal Exam GI & Abdominal Exam: Soft, Normal Bowel Sounds - Extremities Exam Extremities Exam: Pedal Edema - Neurological Exam Neurological Exam: Alert, Awake Assessment and Plan (1) CHF exacerbation Status: Acute (2) Leg edema Status: Acute (3) Cellulitis Status: Acute (4) Hypokalemia Status: Acute (5) Atrial fibrillation Status: Chronic (6) COPD (chronic obstructive pulmonary disease) Status: Chronic - Assessment and Plan (Free Text) Plan: continue wound care, IV Abx, ID/cardio/podiatry follow-up, check labs in am, SW for DC planning
[2018-09-17] MEDS: Linezolid 600 mg in D5W 300 ml 600 MG/300 ML BAG IVPB SCH ×2 (11:09→22:44)
[2018-09-17] MEDS: Oxycodone/Acetaminophen 10/325 mg Tab PO PRN ×2 (11:10→17:55)
[2018-09-17] MEDS: diltiaZEM 240 mg/24 Hours CD Cap PO SCH (11:11)
[2018-09-17] MEDS: metOLazone 5 MG TAB PO SCH (11:11)
[2018-09-17] MEDS: Potassium Chloride 20 mEq ER Tab PO SCH (11:15)
--- NOTE | 2018-09-17 15:41 | CP.PCM.PN ---
Subjective - Date & Time of Evaluation Date of Evaluation: 09/17/18 Time of Evaluation: 14:10 - Subjective Subjective: Patient feels his legs are better, no fevers, not in distress, no nausea, no diarrhea. Objective - Vital Signs/Intake and Output Vital Signs (last 24 hours): Temp Pulse Resp BP Pulse Ox 97.5 F L 76 19 110/52 L 98 09/16/18 05:49 09/16/18 05:49 09/16/18 05:49 09/16/18 05:49 09/16/18 05:49 Intake and Output: 09/16/18 09/16/18 06:59 18:59 Intake Total 1000 Output Total 1775 Balance -775 - Medications Medications: Current Medications Alprazolam (Xanax) 1 mg PO TID PRN; Protocol PRN Reason: Anxiety Last Admin: 09/15/18 20:00 Dose: 1 mg Betamethasone/Clotrimazole (Lotrisone) 0 ml TOP BID [facility] Last Admin: 09/15/18 17:44 Dose: 1 applic Dabigatran (Pradaxa) 150 mg PO BID [facility]; Protocol Last Admin: 09/15/18 17:43 Dose: 150 mg Digoxin (Lanoxin) 0.25 mg PO 1400 [facility] Last Admin: 09/15/18 13:21 Dose: 0.25 mg Diltiazem HCl (Cardizem Cd) 240 mg PO DAILY [facility] Last Admin: 09/15/18 09:37 Dose: 240 mg Furosemide (Lasix) 80 mg IVP DAILY [facility] Last Admin: 09/15/18 09:38 Dose: 80 mg Linezolid (Zyvox 600mg/300ml D5w) 600 mg in 300 mls @ 200 mls/hr IVPB Q12 [facility]; Protocol Stop: 09/19/18 10:01 Last Admin: 09/15/18 23:16 Dose: 200 mls/hr Aztreonam (Azactam 1 Gm) 100 mls @ 100 mls/hr IVPB Q8 [facility]; Protocol Stop: 09/19/18 14:01 Last Admin: 09/16/18 05:10 Dose: 100 mls/hr Insulin Human Regular (Humulin R Low) 0 units SC ACHS [facility]; Protocol Last Admin: 09/16/18 08:28 Dose: Not Given Metolazone (Zaroxolyn) 5 mg PO DAILY [facility] Mupirocin (Bactroban Ointment) 0 gm NS BID [facility] Stop: 09/18/18 18:01 Last Admin: 09/15/18 17:43 Dose: 1 applic Potassium Chloride (K-Dur 20 Meq Er Tab) 20 meq PO BRK [facility] Last Admin: 09/16/18 08:56 Dose: 20 meq Spironolactone (Aldactone) 25 mg PO BID [facility] Last Admin: 09/15/18 17:42 Dose: 25 mg - Labs Labs: 09/13/18 06:35 09/15/18 07:00 PT 19.0 SECONDS (9.4-12.5) H 09/11/18 19:00 INR 1.71 09/11/18 19:00 APTT 58.1 Seconds (26.9-38.3) H 09/11/18 19:00 - Constitutional Appears: Chronically Ill - Respiratory Exam Respiratory Exam: Decreased Breath Sounds - Cardiovascular Exam Cardiovascular Exam: +S1, +S2 - GI/Abdominal Exam GI & Abdominal Exam: Soft. absent: Tenderness Assessment and Plan - Assessment and Plan (Free Text) Plan: Assessment consider bilateral lower extremity skin and skin structure infection with open wounds in this patient with chronic venous stasis, growing MRSA and gram negative bacilli (which are more likely colonizers) chronic CHF history of severe sepsis with acute on chronic renal failure due to bilateral lower extremity cellulitis in this patient with chronic venous stasis and lymphedema and history of lower extremity cellulitis, slowly improving - grew Acinetobacter, MRSA and Stenotrophomonas chronic lower extremity edema CAD HTN atrial fibrillation DM JOSELINE morbid obesity with BMI 44 Plan continue Zyvox day 6 of 7 days based on previous cultures - new cultures from legs showing Achromobacter (probably colonizer) and MRSA follow up further Podiatry recommendations follow up recommendations of Cardiology for the CHF will continue to monitor clinically
[2018-09-17] MEDS: Digoxin 250 mcg (0.25 mg) Tab PO SCH (17:55)
[2018-09-18] MEDS: Oxycodone/Acetaminophen 10/325 mg Tab PO PRN ×2 (06:52→13:13)
--- NOTE | 2018-09-18 07:45 | CP.PCM.PN ---
Subjective - Date & Time of Evaluation Date of Evaluation: 09/18/18 Time of Evaluation: 06:25 - Subjective Subjective: Sitting side of bed, Awake, alert, no distress, complaining of leg pain Reason for consultation and follow up:Cardiac evaluation, history of congestive heart failure, admitted for leg swelling, history of chronic lower extremity cellulitis, coronary artery disease,hypertension, diabetes Seen and examined by me and Dr. Vargas Objective - Vital Signs/Intake and Output Vital Signs (last 24 hours): Temp Pulse Resp BP Pulse Ox 97.3 F L 69 20 134/67 96 09/18/18 00:01 09/18/18 00:01 09/18/18 00:01 09/18/18 00:01 09/17/18 05:45 Intake and Output: 09/18/18 09/18/18 06:59 18:59 Intake Total 2040 Output Total 4650 Balance -2610 - Medications Medications: Current Medications Alprazolam (Xanax) 1 mg PO TID PRN; Protocol PRN Reason: Anxiety Last Admin: 09/17/18 22:44 Dose: 1 mg Betamethasone/Clotrimazole (Lotrisone) 0 ml TOP BID [facility] Last Admin: 09/16/18 18:42 Dose: 1 applic Dabigatran (Pradaxa) 150 mg PO BID [facility]; Protocol Last Admin: 09/17/18 17:55 Dose: 150 mg Digoxin (Lanoxin) 0.25 mg PO 1400 [facility] Last Admin: 09/17/18 17:55 Dose: 0.25 mg Diltiazem HCl (Cardizem Cd) 240 mg PO DAILY [facility] Last Admin: 09/17/18 11:11 Dose: 240 mg Furosemide (Lasix) 80 mg IVP DAILY [facility] Last Admin: 09/17/18 11:09 Dose: 80 mg Linezolid (Zyvox 600mg/300ml D5w) 600 mg in 300 mls @ 200 mls/hr IVPB Q12 [facility]; Protocol Stop: 09/19/18 10:01 Last Admin: 09/17/18 22:44 Dose: 200 mls/hr Insulin Human Regular (Humulin R Low) 0 units SC ACHS [facility]; Protocol Last Admin: 09/17/18 22:41 Dose: Not Given Metolazone (Zaroxolyn) 5 mg PO DAILY [facility] Last Admin: 09/17/18 11:11 Dose: 5 mg Mupirocin (Bactroban Ointment) 0 gm NS BID [facility] Stop: 09/18/18 18:01 Last Admin: 09/16/18 18:43 Dose: 1 applic Oxycodone/Acetaminophen (Percocet 10/325 Mg Tab) 1 tab PO Q6H PRN PRN Reason: Pain, moderate (4-7) Last Admin: 09/18/18 06:52 Dose: 1 tab Potassium Chloride (K-Dur 20 Meq Er Tab) 20 meq PO BRK [facility] Last Admin: 09/17/18 11:15 Dose: Not Given Spironolactone (Aldactone) 25 mg PO BID [facility] Last Admin: 09/17/18 17:55 Dose: 25 mg - Labs Labs: 09/13/18 06:35 09/15/18 07:00 PT 19.0 SECONDS (9.4-12.5) H 09/11/18 19:00 INR 1.71 09/11/18 19:00 APTT 58.1 Seconds (26.9-38.3) H 09/11/18 19:00 - Constitutional Appears: Non-toxic, No Acute Distress - Head Exam Head Exam: NORMAL INSPECTION, NORMOCEPHALIC - Eye Exam Eye Exam: Normal appearance Pupil Exam: NORMAL ACCOMODATION - ENT Exam ENT Exam: Mucous Membranes Moist, Normal Exam - Respiratory Exam Respiratory Exam: Decreased Breath Sounds, NORMAL BREATHING PATTERN - Cardiovascular Exam Cardiovascular Exam: +S1, +S2 - Extremities Exam Additional comments: legs with sampson wrapped - Neurological Exam Neurological Exam: Alert, Awake, Oriented x3 - Psychiatric Exam Psychiatric exam: Normal Affect, Normal Mood - Skin Skin Exam: Dry, Normal Color, Warm Assessment and Plan - Assessment and Plan (Free Text) Assessment: A 58 year old male morbidly obese, who came in to the ER due to leg swelling and shortness of breath. History of chronic lower extremity cellulitis, non obstructive coronary artery disease,hypertension, diabetes,COPD, congestive heart failure, chronic atrial fibrillation, on Pradaxa, JOSELINE, chronic venous insufficiency, former smoker. Recent Echo on 04/23/2018 showed normal LVEF.Severe pulmonary hypertension [id number] mmHg,trace MR/TR. Chest X ray on admission was normal. No pulmonary congestion. EKG Atrial fibrillation at rapid rate 127/min. Troponin normal. Elevated BNP. Exacerbation of COPD. on IV antibiotics , ID on consult. Podiatry on consult. Cardiac status stable. Toe culture positive for MRSA/ Alcaligenes Faecalis. Clinically improved and stable. Continue antibiotics. Plan: Complaining of leg pain, PRN medication given Denies shortness of breath Cardiac status stable Heart rate controlled Blood pressure controlled On Pradaxa 150 mg BID, Digoxin 0.25 mg daily,Cardizem CD 240 mg daily Lasix 80 mg daily,Zaroxolyn 5 mg daily, Kdur 20 meq daily Continue IV antibiotics for per ID Continue current treatment Continue current medications Glucose controlled Podiatry on consult Discharge planning Will follow up Plan and treatment discussed with Dr. Vargas
[2018-09-18] MEDS: Insulin Reg-LOW-Coverage SC SCH (07:57)
[2018-09-18 08:05] LABS: BASO # 0.07 K/mm3 (0.0-2.0); BASO % 0.8 % (0.0-3.0); EOS # 0.3 (0.0-0.7); EOS % 3.7 % (1.5-5.0); HEMOGLOBIN 11.2 g/dL (14.0-18.0); LYMPH # 1.2 (1.2-3.4); LYMPH % 12.9 % (22.0-35.0); MEAN CELL VOLUME 88.9 fl (80.0-105.0); MEAN CORPUSCULAR HEMOGLOBIN 27.7 pg (25.0-35.0); MEAN CORPUSCULAR HGB CONC 31.2 g/dl (31.0-37.0); MEAN PLATELET VOLUME 8.7 fl (7.0-11.0); MONO # 0.5 (0.1-0.6); MONO % 5.5 % (1.0-6.0); RBC 4.04 10^6/uL (3.5-6.1); RED CELL DISTRIBUTION WIDTH 15.9 % (11.5-14.5); WHITE BLOOD COUNT 9.2 10^3/uL (4.5-11.0)
[2018-09-18 08:23] LABS: ALB/GLOB RATIO 1.1 (1.1-1.8); ALBUMIN 4.5 g/dL (3.0-4.8); ALT/SGPT 25 U/L (7-56); AST/SGOT 31 U/L (17-59); BLOOD UREA NITROGEN 37 mg/dL (7-21); CALCIUM 9.4 mg/dL (8.4-10.5); GFR NON-AFRICAN AMERICAN > 60
--- NOTE | 2018-09-18 10:09 | CP.PCM.PN ---
Subjective - Date & Time of Evaluation Date of Evaluation: 09/18/18 Time of Evaluation: 10:06 - Subjective Subjective: Podiatry Progress Note - Drs. Meadows/Vincent 58M seen and evaluated this AM with Dr. Meadows for bilateral lower extremity edema and venous stasis ulcerations. Patient resting comfortably, hemodynamically stable and NAD. No acute events overnight. Pain in legs well- controlled. No new lower extremity complaints. Dressings clean/dry/intact. Denies n/v/f/d/c/sob/soto/cp. Objective - Vital Signs/Intake and Output Vital Signs (last 24 hours): Temp Pulse Resp BP Pulse Ox 97.4 F L 68 20 110/69 96 09/18/18 06:00 09/18/18 06:00 09/18/18 06:00 09/18/18 06:00 09/17/18 05:45 Intake and Output: 09/18/18 09/18/18 06:59 18:59 Intake Total 2040 Output Total 4650 Balance -2610 - Medications Medications: Current Medications Alprazolam (Xanax) 1 mg PO TID PRN; Protocol PRN Reason: Anxiety Last Admin: 09/17/18 22:44 Dose: 1 mg Betamethasone/Clotrimazole (Lotrisone) 0 ml TOP BID [facility] Last Admin: 09/16/18 18:42 Dose: 1 applic Dabigatran (Pradaxa) 150 mg PO BID [facility]; Protocol Last Admin: 09/17/18 17:55 Dose: 150 mg Digoxin (Lanoxin) 0.25 mg PO 1400 [facility] Last Admin: 09/17/18 17:55 Dose: 0.25 mg Diltiazem HCl (Cardizem Cd) 240 mg PO DAILY [facility] Last Admin: 09/17/18 11:11 Dose: 240 mg Furosemide (Lasix) 80 mg IVP DAILY [facility] Last Admin: 09/17/18 11:09 Dose: 80 mg Linezolid (Zyvox 600mg/300ml D5w) 600 mg in 300 mls @ 200 mls/hr IVPB Q12 [facility]; Protocol Stop: 09/19/18 10:01 Last Admin: 09/17/18 22:44 Dose: 200 mls/hr Insulin Human Regular (Humulin R Low) 0 units SC ACHS [facility]; Protocol Last Admin: 09/18/18 07:57 Dose: Not Given Metolazone (Zaroxolyn) 5 mg PO DAILY [facility] Last Admin: 09/17/18 11:11 Dose: 5 mg Mupirocin (Bactroban Ointment) 0 gm NS BID [facility] Stop: 09/18/18 18:01 Last Admin: 09/16/18 18:43 Dose: 1 applic Oxycodone/Acetaminophen (Percocet 10/325 Mg Tab) 1 tab PO Q6H PRN PRN Reason: Pain, moderate (4-7) Last Admin: 09/18/18 06:52 Dose: 1 tab Potassium Chloride (K-Dur 20 Meq Er Tab) 20 meq PO BRK [facility] Last Admin: 09/17/18 11:15 Dose: Not Given Spironolactone (Aldactone) 25 mg PO BID [facility] Last Admin: 09/17/18 17:55 Dose: 25 mg - Labs Labs: 09/18/18 07:30 09/18/18 07:30 PT 19.0 SECONDS (9.4-12.5) H 09/11/18 19:00 INR 1.71 09/11/18 19:00 APTT 58.1 Seconds (26.9-38.3) H 09/11/18 19:00 - Constitutional Appears: Well, Non-toxic, No Acute Distress - Head Exam Head Exam: ATRAUMATIC, NORMOCEPHALIC - Extremities Exam Additional comments: LE focused exam: Vasc: Nonpalpable DP and PT pulses secondary to chronic indurated edema b/l. Temperature gradient warm to warm b/l. +2 pitting edema bilaterally. Ortho: Diffuse tenderness upon palpation noted to bilateral LE. Neuro: Gross and protective sensation diminished b/l. Derm: Mild drainage from L hallux ulceration, mild weeping at b/l LE. Rubor present to b/l lower extremities beginning from tibial tuberosity extending distally to digits, small breaks in the skin noted to b/l lower extremities, no malodor appreciated, no purulence, no fluctuance, no tracking, no tunneling, no undermining, no probe to bone, significant xerosis to b/l lower extremities. - Neurological Exam Neurological Exam: Alert, Awake, Oriented x3 - Psychiatric Exam Psychiatric exam: Normal Affect, Normal Mood Assessment and Plan - Assessment and Plan (Free Text) Assessment: 58M with b/l lower extremity venous stasis ulcerations and edema Plan: Patient seen and evaluated with Dr. Meadows VSS, absent leukocytosis Clotrimazole applied to b/l lower legs Continue local wound care: saline cleanse, right leg optifoam, left first and second digit betadine DSD, kerlix and ABD to lower legs, LARY applied b/l Santyl ordered - to be applied to area on lateral aspect of right leg Left hallux wound culture - MRSA, alcaligenes faecalis, achromobacter species Continue abx per ID Pain control per medicine Recommend transfer to TCU upon d/c from floor F/u with podiatry as outpatient Podiatry will continue to follow
[2018-09-18] MEDS: diltiaZEM 240 mg/24 Hours CD Cap PO SCH (10:19)
[2018-09-18] MEDS: Linezolid 600 mg in D5W 300 ml 600 MG/300 ML BAG IVPB SCH (10:19)
[2018-09-18] MEDS: Potassium Chloride 20 mEq ER Tab PO SCH (10:19)
[2018-09-18] MEDS: metOLazone 5 MG TAB PO SCH (10:20)
[2018-09-18] MEDS: Clotrimazole/Betamethasone Lotion(30 ml) TOP SCH (10:22)
[2018-09-18] MEDS: Mupirocin 2% Ointment 15 GM TUBE NS SCH (10:23)
[2018-09-18 12:29] VITALS: BP 114/64; PULSE 80; RESP 19; TEMP 97.1
--- NOTE | 2018-09-18 13:09 | CP.PCM.PN ---
Subjective - Date & Time of Evaluation Date of Evaluation: 09/18/18 Time of Evaluation: 09:35 - Subjective Subjective: Less pain the legs, no fevers, no nausea, no diarrhea. Objective - Vital Signs/Intake and Output Vital Signs (last 24 hours): Temp Pulse Resp BP Pulse Ox 97.5 F L 89 18 110/56 L 96 09/17/18 12:00 09/17/18 12:00 09/17/18 12:00 09/17/18 12:00 09/17/18 05:45 Intake and Output: 09/17/18 09/17/18 06:59 18:59 Intake Total 4300 Output Total 9100 Balance -4800 - Medications Medications: Current Medications Alprazolam (Xanax) 1 mg PO TID PRN; Protocol PRN Reason: Anxiety Last Admin: 09/16/18 22:36 Dose: 1 mg Betamethasone/Clotrimazole (Lotrisone) 0 ml TOP BID [facility] Last Admin: 09/16/18 18:42 Dose: 1 applic Dabigatran (Pradaxa) 150 mg PO BID [facility]; Protocol Last Admin: 09/17/18 11:11 Dose: 150 mg Digoxin (Lanoxin) 0.25 mg PO 1400 [facility] Last Admin: 09/16/18 13:31 Dose: 0.25 mg Diltiazem HCl (Cardizem Cd) 240 mg PO DAILY [facility] Last Admin: 09/17/18 11:11 Dose: 240 mg Furosemide (Lasix) 80 mg IVP DAILY [facility] Last Admin: 09/17/18 11:09 Dose: 80 mg Linezolid (Zyvox 600mg/300ml D5w) 600 mg in 300 mls @ 200 mls/hr IVPB Q12 [facility]; Protocol Stop: 09/19/18 10:01 Last Admin: 09/17/18 11:09 Dose: 200 mls/hr Insulin Human Regular (Humulin R Low) 0 units SC ACHS [facility]; Protocol Last Admin: 09/17/18 11:13 Dose: Not Given Metolazone (Zaroxolyn) 5 mg PO DAILY [facility] Last Admin: 09/17/18 11:11 Dose: 5 mg Mupirocin (Bactroban Ointment) 0 gm NS BID [facility] Stop: 09/18/18 18:01 Last Admin: 09/16/18 18:43 Dose: 1 applic Oxycodone/Acetaminophen (Percocet 10/325 Mg Tab) 1 tab PO Q6H PRN PRN Reason: Pain, moderate (4-7) Last Admin: 09/17/18 11:10 Dose: 1 tab Potassium Chloride (K-Dur 20 Meq Er Tab) 20 meq PO BRK [facility] Last Admin: 09/16/18 08:56 Dose: 20 meq Spironolactone (Aldactone) 25 mg PO BID [facility] Last Admin: 09/17/18 11:10 Dose: 25 mg - Labs Labs: 09/13/18 06:35 09/15/18 07:00 PT 19.0 SECONDS (9.4-12.5) H 09/11/18 19:00 INR 1.71 09/11/18 19:00 APTT 58.1 Seconds (26.9-38.3) H 09/11/18 19:00 - Constitutional Appears: No Acute Distress, Chronically Ill - Head Exam Head Exam: NORMAL INSPECTION - ENT Exam ENT Exam: Mucous Membranes Moist - Neck Exam Neck Exam: absent: Meningismus - Respiratory Exam Respiratory Exam: Decreased Breath Sounds - Cardiovascular Exam Cardiovascular Exam: +S1, +S2 - GI/Abdominal Exam GI & Abdominal Exam: Soft. absent: Tenderness - Extremities Exam Additional comments: both legs with dressings in place Assessment and Plan - Assessment and Plan (Free Text) Plan: Assessment consider bilateral lower extremity skin and skin structure infection with open wounds in this patient with chronic venous stasis, growing MRSA and gram negative bacilli (which are more likely colonizers) chronic CHF history of severe sepsis with acute on chronic renal failure due to bilateral lower extremity cellulitis in this patient with chronic venous stasis and lymphedema and history of lower extremity cellulitis, slowly improving - grew Acinetobacter, MRSA and Stenotrophomonas chronic lower extremity edema CAD HTN atrial fibrillation DM JOSELINE morbid obesity with BMI 44 Plan continue Zyvox day 7 of 7 days - new cultures from legs showing Achromobacter (probably colonizer) and MRSA can d/c antibiotics after today follow up further Podiatry recommendations follow up recommendations of Cardiology for the CHF will continue to follow clinically while the patient is in the hospital
[2018-09-18] MEDS: Digoxin 250 mcg (0.25 mg) Tab PO SCH (13:13)
[2018-09-18 13:20] VITALS: PULSE 82
[2018-09-19] MEDS ORDERED: Collagenase 250 Units/gm Ointment(30 gm) TOP SCH (10:00)
== END 2018-09-18 17:55 | disposition home health service (06) | DRG 544 ==
LOC: ED 17:46 → ERH 19:45 → 2RNO 22:34 → OBSVTOIN 09-12 12:49
PROVIDERS: ADMIT Internal Medicine; ATTEND Internal Medicine
DX: I13.0 Hypertensive heart and chronic kidney disease with heart failure and stage 1 through stage 4 chronic kidney disease, or unspecified chronic kidney disease (principal); I50.33 Acute on chronic diastolic (congestive) heart failure; N18.9 Chronic kidney disease, unspecified; L03.115 Cellulitis of right lower limb; L03.116 Cellulitis of left lower limb; E11.40 Type 2 diabetes mellitus with diabetic neuropathy, unspecified; E11.22 Type 2 diabetes mellitus with diabetic chronic kidney disease; E87.6 Hypokalemia; L97.929 Non-pressure chronic ulcer of unspecified part of left lower leg with unspecified severity; L97.919 Non-pressure chronic ulcer of unspecified part of right lower leg with unspecified severity; E11.622 Type 2 diabetes mellitus with other skin ulcer; J44.9 Chronic obstructive pulmonary disease, unspecified; I87.2 Venous insufficiency (chronic) (peripheral); I27.20 Pulmonary hypertension, unspecified; I25.10 Atherosclerotic heart disease of native coronary artery without angina pectoris; I48.0 Paroxysmal atrial fibrillation; I48.2 Chronic atrial fibrillation; G47.33 Obstructive sleep apnea (adult) (pediatric); E78.5 Hyperlipidemia, unspecified; E66.01 Morbid (severe) obesity due to excess calories; Z68.41 Body mass index [BMI] 40.0-44.9, adult; Z87.891 Personal history of nicotine dependence; Z91.14 Patient's other noncompliance with medication regimen

== ENCOUNTER 2018-09-22 11:08 | Emergency (ER) | payer OTHER ==
[2018-09-22 11:09] VITALS: PULSE 82; BMI 43.4
[2018-09-22 12:13] VITALS: BP 151/77; PULSE 100; RESP 20; TEMP 99.1; O2SAT 96
--- NOTE | 2018-09-22 12:43 | ED PDOC ---
Arrival/HPI - General Chief Complaint: Weakness/Neurological Deficit Time Seen by Provider: 09/22/18 11:32 Historian: Patient - History of Present Illness Narrative History of Present Illness (Text): 09/22/18 12:34 58 year old male, with past medical history of CHF, cellulitis, A-fib, COPD, and diabetes, presents to the ED for evaluation of shakes and chills since past weekend. Patient informs visiting Dr. Leiva with the presented symptoms and was subsequently referred to the ED for evaluation of elevated blood sugar. Patient informs mild shortness of breath and subjective fever at home but denies any other associated somatic complaints. Patient denies any headache, dizziness, chest pain, shortness of breath,dyspnea on exertion, cough, abdominal pain, nausea, vomiting, diarrhea, back pain, neck pain, rash, worsening edema or any other complaints. Patient denies any history of alcohol use or alcohol withdrawal. PMD: Dr. Leiva Time/Duration: < week Symptom Onset: Gradual Symptom Course: Unchanged Activities at Onset: Light Context: Other (Referred by Dr. Leiva) Past Medical History - Provider Review Nursing Documentation Reviewed: Yes - Infectious Disease Hx of Infectious Diseases: None - Tetanus Immunization Tetanus Immunization: Unknown - Cardiac Hx Cardiac Disorders: Yes (Afib, CAD) Hx Cardiac Arrhythmia: Yes (afib) Hx Peripheral Edema: Yes (+2 pitting ble) Other/Comment: chronic venous insufficiency - Pulmonary Other/Comment: had the sleep study pt thinks they told him he had sleep apnea went to follow up with appt but "there ws no one there, the place was gone." pt stated. Couldn't remember the name of the place - Neurological Hx Neurological Disorder: Yes Other/Comment: tremors - HEENT Hx HEENT Disorder: Yes Other/Comment: glasses - Renal Hx Renal Disorder: Yes Hx Renal Failure: Yes (ARF 11/2014) Other/Comment: acute hemodialysis 11/2016, hd cath implanted by dr martin 12/12/2014 to r jugular for acute hd - Endocrine/Metabolic Hx Diabetes Mellitus Type 2: Yes - Hematological/Oncological Hx Blood Disorders: No - Integumentary Hx Dermatological Disorder: No Other/Comment: cellulitis on sudhir lower ext. Chronic venous insufficiency (previous triage) - Musculoskeletal/Rheumatological Hx Musculoskeletal Disorders: Yes (chronic ble leg pain) Hx Falls: Yes Hx Unsteady Gait: Yes (walker) - Gastrointestinal Hx Gastrointestinal Disorders: Yes (obese, hiatal hernia) Other/Comment: scheduled for endo 05/26/18 - Genitourinary/Gynecological Hx Genitourinary Disorders: No - Psychiatric Hx Psychophysiologic Disorder: Yes Hx Anxiety: Yes Hx Substance Use: No - Surgical History Other/Comment: multiple leg sx's including skin grafts done by various dr's, [facility] linus insertion kate 06/2015 and to maria guadalupe 09/25/16 - Anesthesia Hx Anesthesia: Yes Hx Anesthesia Reactions: No Hx Malignant Hyperthermia: No - Suicidal Assessment Feels Threatened In Home Enviroment: No Family/Social History - Physician Review Nursing Documentation Reviewed: Yes Family/Social History: No Known Family HX Smoking Status: Former Smoker Hx Alcohol Use: No Hx Substance Use: No Hx Substance Use Treatment: No Allergies/Home Meds Allergies/Adverse Reactions: Allergies meropenem [From Merrem] Adverse Reaction (Verified 08/04/18 12:15) PAIN Home Medications: Home Meds Medication Instructions Recorded Confirmed Albuterol HFA [Ventolin HFA 90 1 puff IH BID PRN 09/17/16 08/04/18 mcg/actuation (8 g)] Furosemide [Lasix] 1 tab PO BID 09/17/16 08/04/18 Oxycodone HCl/Acetaminophen 1 tab PO Q4H PRN 09/17/16 08/04/18 [Percocet 10-325 mg Tablet] metOLazone [Zaroxolyn] 1 tab PO 2XW 09/17/16 08/04/18 Review of Systems - Physician Review All systems were reviewed & negative as marked: Yes - Review of Systems Constitutional: Fevers, Other (Chills) Respiratory: SOB. absent: Cough Cardiovascular: absent: Chest Pain, WALTERS Gastrointestinal: absent: Abdominal Pain, Diarrhea, Nausea, Vomiting Genitourinary Male: absent: Dysuria, Urinary Output Changes Musculoskeletal: absent: Back Pain, Neck Pain Skin: absent: Rash Neurological: absent: Headache, Dizziness Physical Exam Vital Signs Reviewed: Yes Vital Signs Temp Pulse Resp BP Pulse Ox 09/22/18 11:09 99.1 F 100 H 20 151/77 H 96 Temperature: Afebrile Blood Pressure: Normal Pulse: Regular Respiratory Rate: Normal Appearance: Positive for: Well-Appearing, Non-Toxic, Comfortable Pain Distress: None Mental Status: Positive for: Alert and Oriented X 3 Finger Stick Blood Glucose: 137 - Systems Exam Head: Present: Atraumatic, Normocephalic Pupils: Present: PERRL Extroacular Muscles: Present: EOMI Conjunctiva: Present: Normal Mouth: Present: Moist Mucous Membranes Neck: Present: Normal Range of Motion Respiratory/Chest: Present: Clear to Auscultation, Good Air Exchange. No: Respiratory Distress, Accessory Muscle Use Cardiovascular: Present: Regular Rate and Rhythm, Normal S1, S2. No: Murmurs Abdomen: No: Tenderness, Distention, Peritoneal Signs Back: Present: Normal Inspection Upper Extremity: Present: Normal Inspection. No: Cyanosis, Edema Lower Extremity: Present: Edema (+1 pitting edema bilaterally) Neurological: Present: GCS=15, CN II-XII Intact, Speech Normal Skin: Present: Warm, Dry, Normal Color. No: Rashes Psychiatric: Present: Alert, Oriented x 3, Normal Insight, Normal Concentration Medical Decision Making ED Course and Treatment: 09/22/18 12:16 Impression: 58 year old male presents to the ED for evaluation of shakes and chills. Plan: -- EKG -- Labs -- CXR -- Blood Culture -- Influenza A/B -- Reassess and disposition Prior Visits: Notes and results from previous visits were reviewed. Progress Notes: 09/22/18 14:[address] Leiva, who notes patient's vitals 115 afib with RVR as well as BNP, WBC elevation are of baseline of no concern. Dr. Leiva also noted that he did not send patient here. He only wanted patient's blood glucose to be checked. Given well appearance, resolution of "tremors" and no complaints will d/c home with return indications and followup. Pt agreeable to plan. 09/22/18 15:03 CXR reviewed by radiologist, shows no active disease. 09/22/18 15:21 09/22/18 15:25 Pt eloped - RAD Interpretation Radiology Orders: 09/22/18 12:16 CHEST TWO VIEWS (PA/LAT) [RAD] Stat - Scribe Statement The provider has reviewed the documentation as recorded by the Scribe Dora Gonsalez. All medical record entries made by the Scribe were at my direction and personally dictated by me. I have reviewed the chart and agree that the record accurately reflects my personal performance of the history, physical exam, medical decision making, and the department course for this patient. I have also personally directed, reviewed, and agree with the discharge instructions and disposition. Disposition/Present on Arrival - Present on Arrival Any Indicators Present on Arrival: No History of DVT/PE: No History of Uncontrolled Diabetes: No Urinary Catheter: No History of Decub. Ulcer: No History Surgical Site Infection Following: None - Disposition Have Diagnosis and Disposition been Completed?: Yes Diagnosis: Occasional tremors, Diabetes Disposition: ELOPEMENT - ER ONLY Disposition Time: 15:25 Patient Problems: Current Active Problems Problem Status Onset Diabetes Chronic Occasional tremors Acute Condition: STABLE Discharge Instructions (ExitCare): Tremor, Diabetes and Diet Additional Instructions: SEE YOUR PRIMARY CARE DOCTOR AND A NEUROLOGIST REGARDING YOUR SHAKES CINDY CRAMER, thank you for letting us take care of you today. Your provider was Jayden Witt and you were treated for medical clreance. The emergency medical care you received today was directed at your acute symptoms. If you were pres cribed any medication, please fill it and take as directed. It may take several days for your symptoms to resolve. Return to the Emergency Department if your symptoms worsen, do not improve, or if you have any other problems. Please contact your doctor or call one of the physicians/clinics you have been referred to that are listed on the Patient Visit Information form that is included in your discharge packet. Bring any paperwork you were given at discharge with you along with any medications you are taking to your follow up visit. Our treatment cannot replace ongoing medical care by a primary care provider outside of the emergency department. Thank you for allowing the [email or web address] team to be part of your care today. If you had an X-Ray or CT scan: A Radiologist will review the ED reading if any change in treatment is needed we will contact you. If you had a blood, urine, or wound culture: It will take several days for the results, if any change in treatment is needed we will contact you. If you had an STI test: It will take 48 hours for the results. Please call after 1 week if you have not heard back. Referrals: Matthew Leiva JD, MD [Family Provider] - Follow up with primary Tylor Cox MD [Staff Provider] - Follow up with primary Forms: [employer] (Sami)
[2018-09-22 12:54] LABS: BASO # 0.14 K/mm3 (0.0-2.0); BASO % 1.1 % (0.0-3.0); EOS # 0.1 (0.0-0.7); EOS % 1.1 % (1.5-5.0); HEMOGLOBIN 12.6 g/dL (14.0-18.0); LYMPH # 0.9 (1.2-3.4); MEAN CORPUSCULAR HEMOGLOBIN 27.9 pg (25.0-35.0); MEAN CORPUSCULAR HGB CONC 32.5 g/dl (31.0-37.0); MONO # 1.4 (0.1-0.6); MONO % 10.8 % (1.0-6.0); RBC 4.51 10^6/uL (3.5-6.1); RED CELL DISTRIBUTION WIDTH 15.7 % (11.5-14.5); WHITE BLOOD COUNT 13.1 10^3/uL (4.5-11.0)
[2018-09-22 13:07] LABS: ALB/GLOB RATIO 1.2 (1.1-1.8); ALBUMIN 4.9 g/dL (3.0-4.8); ALT/SGPT 39 U/L (7-56); AST/SGOT 46 U/L (17-59); BLOOD UREA NITROGEN 39 mg/dL (7-21); GFR NON-AFRICAN AMERICAN > 60
[2018-09-22 13:16] LABS: B-TYPE NATRIURETIC PEPTIDE 1030 pg/mL (0-450); TROPONIN I < 0.01 ng/mL
--- NOTE | 2018-09-22 13:37 | RAD ---
Date of service: 09/22/2018 HISTORY: norman COMPARISON: 09/11/2018 TECHNIQUE: Chest PA and lateral FINDINGS: LUNGS: No active pulmonary disease. PLEURA: No significant pleural effusion identified. No pneumothorax apparent. CARDIOVASCULAR: No aortic atherosclerotic calcification present. Normal cardiac size. No pulmonary vascular congestion. OSSEOUS STRUCTURES: No significant abnormalities. VISUALIZED UPPER ABDOMEN: Normal. OTHER FINDINGS: None. IMPRESSION: No active disease.
--- NOTE | 2018-09-22 20:18 | CARD ---
APPROVED REPORT Date of service: 09/22/2018 EKG Measurement Heart [id number] <Conclusion> Atrial fibrillation with rapid ventricular response with premature ventricular or aberrantly conducted complexes Abnormal ECG
== END 2018-09-22 15:35 | disposition left against medical advice (07) ==
LOC: ED 11:08
DX: E11.9 Type 2 diabetes mellitus without complications (principal); R25.1 Tremor, unspecified; I25.10 Atherosclerotic heart disease of native coronary artery without angina pectoris; I48.91 Unspecified atrial fibrillation; I50.9 Heart failure, unspecified; J44.9 Chronic obstructive pulmonary disease, unspecified; Z87.891 Personal history of nicotine dependence

== ENCOUNTER 2018-11-13 16:33 | Inpatient (IN) | payer OTHER ==
[2018-11-13 16:34] VITALS: BMI 43.4
--- NOTE | 2018-11-13 18:10 | ED PDOC ---
Arrival/HPI - General Chief Complaint: Lower Extremity Problem/Injury Time Seen by Provider: 11/13/18 17:10 Historian: Patient - History of Present Illness Narrative History of Present Illness (Text): 11/13/18 18:10 58yr old male presents today sent in by the electricity trader for IV abx. Patient states he has been having chronic diabetic foot and leg ulcers for a long time. Patient states he has been on antibiotics with failure of treatment. Patient states he is having discharge and a foul smell from the wounds. Patient denies chest pain or shortness of breath at rest. Patient states that he seems to get more short of breath walking long distances. Patient states he has a history of CHF and knows that he has a little fluid buildup. Patient denies fevers or chills. Complaining of generalized fatigue. Patient was sent from Dr. Meadows's office for admission Past Medical History - Provider Review Nursing Documentation Reviewed: Yes - Travel History Have you recently traveled outside [place] w/in the past 3 mons?: No - Infectious Disease Hx of Infectious Diseases: None - Tetanus Immunization Tetanus Immunization: Unknown - Cardiac Hx Cardiac Disorders: Yes (Afib, CAD) Hx Cardiac Arrhythmia: Yes (afib) Hx Peripheral Edema: Yes (+2 pitting ble) Other/Comment: chronic venous insufficiency - Pulmonary Other/Comment: had the sleep study pt thinks they told him he had sleep apnea went to follow up with appt but "there ws no one there, the place was gone." pt stated. Couldn't remember the name of the place - Neurological Hx Neurological Disorder: Yes Other/Comment: tremors - HEENT Hx HEENT Disorder: Yes Other/Comment: glasses - Renal Hx Renal Disorder: Yes Hx Renal Failure: Yes (ARF 11/2014) Other/Comment: acute hemodialysis 11/2016, hd cath implanted by dr martin 12/12/2014 to r jugular for acute hd - Endocrine/Metabolic Hx Diabetes Mellitus Type 2: Yes - Hematological/Oncological Hx Blood Disorders: No - Integumentary Hx Dermatological Disorder: No Other/Comment: cellulitis on sudhir lower ext. Chronic venous insufficiency (previous triage) - Musculoskeletal/Rheumatological Hx Musculoskeletal Disorders: Yes (chronic ble leg pain) Hx Falls: Yes Hx Unsteady Gait: Yes (walker) - Gastrointestinal Hx Gastrointestinal Disorders: Yes (obese, hiatal hernia) Other/Comment: scheduled for endo 05/26/18 - Genitourinary/Gynecological Hx Genitourinary Disorders: No - Psychiatric Hx Psychophysiologic Disorder: Yes Hx Anxiety: Yes Hx Substance Use: No - Surgical History Other/Comment: multiple leg sx's including skin grafts done by various dr's, picc linus insertion kate 06/2015 and to maria guadalupe 09/25/16 - Anesthesia Hx Anesthesia: Yes Hx Anesthesia Reactions: No Hx Malignant Hyperthermia: No - Suicidal Assessment Feels Threatened In Home Enviroment: No Family/Social History - Physician Review Nursing Documentation Reviewed: Yes Family/Social History: Unknown Family HX Smoking Status: Former Smoker Hx Alcohol Use: No Hx Substance Use: No Hx Substance Use Treatment: No Allergies/Home Meds Allergies/Adverse Reactions: Allergies meropenem [From Merrem] Adverse Reaction (Verified 11/13/18 16:57) PAIN Home Medications: Home Meds Medication Instructions Recorded Confirmed Albuterol HFA [Ventolin HFA 90 1 puff IH BID PRN 09/17/16 11/13/18 mcg/actuation (8 g)] Furosemide [Lasix] 1 tab PO BID 09/17/16 11/13/18 Oxycodone HCl/Acetaminophen 1 tab PO Q4H PRN 09/17/16 11/13/18 [Percocet 10-325 mg Tablet] metOLazone [Zaroxolyn] 1 tab PO 2XW 09/17/16 11/13/18 Review of Systems - Review of Systems Constitutional: Fatigue. absent: Fevers Respiratory: Other (WALTERS). absent: Cough Cardiovascular: absent: Chest Pain, Palpitations Gastrointestinal: absent: Abdominal Pain, Nausea, Vomiting Musculoskeletal: Arthralgias Skin: Skin Lesions Neurological: absent: Headache, Dizziness Psychiatric: absent: Anxiety, Depression Physical Exam Vital Signs Reviewed: Yes Vital Signs Temp Pulse Resp BP Pulse Ox 11/13/18 17:00 98.8 F 75 19 128/67 98 Temperature: Afebrile Blood Pressure: Normal Pulse: Regular Respiratory Rate: Normal Appearance: Positive for: Well-Appearing, Non-Toxic, Comfortable Pain Distress: None Mental Status: Positive for: Alert and Oriented X 3 - Systems Exam Head: Present: Atraumatic Mouth: Present: Moist Mucous Membranes Neck: Present: Normal Range of Motion Respiratory/Chest: Present: Clear to Auscultation, Good Air Exchange. No: Respiratory Distress, Accessory Muscle Use, Wheezes, Rhonchi, Tachypneic Cardiovascular: Present: Regular Rate and Rhythm, Normal S1, S2. No: Murmurs Back: Present: Normal Inspection Upper Extremity: Present: Normal ROM Lower Extremity: Present: Normal ROM, Other (skin break down noted to anterior aspect of both legs. draining wounds noted. ) Neurological: Present: GCS=15, Speech Normal Skin: Present: Warm, Dry Psychiatric: Present: Alert, Oriented x 3 Medical Decision Making ED Course and Treatment: 11/13/18 18:23 58yr old male sent in for admission for abx. cbc; wnl cmp : wnl BNP elevated blood cultures pending cxr; + cardiomegaly, slight vascular congestion ekg; atrial fibrillation with PVCs at [address] elevations pt started on vancomycin and aztreonam IV patient given 20 of Lasix IV case discussed with dr. leiva. accepts admission to remote telemetry Impression: Bilateral ulcerations, failure of outpatient antibiotics, atrial fibrillation Admit to remote telemetry Disposition/Present on Arrival - Present on Arrival Any Indicators Present on Arrival: No History of DVT/PE: No History of Uncontrolled Diabetes: No Urinary Catheter: No History of Decub. Ulcer: No History Surgical Site Infection Following: None - Disposition Have Diagnosis and Disposition been Completed?: Yes Diagnosis: Atrial fibrillation, Leg ulcer, Foot ulcer Disposition: HOSPITALIZED Disposition Time: 18:25 Patient Plan: Admission Condition: FAIR Referrals: Matthew Leiva JD, MD [Primary Care Provider] - Follow up with primary Forms: [employer] (Kyrgyz)
[2018-11-13 18:30] LABS: BASO # 0.15 K/mm3 (0.0-2.0); BASO % 1.5 % (0.0-3.0); EOS # 0.3 (0.0-0.7); EOS % 3.4 % (1.5-5.0); LYMPH # 1.1 (1.2-3.4); MEAN CELL VOLUME 92.2 fl (80.0-105.0); MEAN CORPUSCULAR HGB CONC 30.4 g/dl (31.0-37.0); MONO # 0.8 (0.1-0.6); MONO % 8.4 % (1.0-6.0); RBC 3.57 10^6/uL (3.5-6.1); RED CELL DISTRIBUTION WIDTH 18.5 % (11.5-14.5); WHITE BLOOD COUNT 9.9 10^3/uL (4.5-11.0)
[2018-11-13 18:40] LABS: INR 1.75; PROTHROMBIN TIME 19.4 SECONDS (9.4-12.5)
[2018-11-13 18:42] LABS: ALBUMIN 3.7 g/dL (3.0-4.8); ALT/SGPT 7 U/L (7-56); AST/SGOT 25 U/L (17-59); BLOOD UREA NITROGEN 15 mg/dL (7-21); CALCIUM 8.5 mg/dL (8.4-10.5); GFR NON-AFRICAN AMERICAN > 60
[2018-11-13 18:49] LABS: B-TYPE NATRIURETIC PEPTIDE 1450 pg/mL (0-450)
[2018-11-13 18:53] LABS: TROPONIN I < 0.01 ng/mL
[2018-11-13] MEDS ORDERED: Vancomycin 1gm in NS 250ml 1 GM/250 ML BAG IVPB STA (19:36)
[2018-11-13] MEDS ORDERED: Aztreonam 1 Gm in NS 100mL 100 ML IVPB STA (19:42)
[2018-11-13] MEDS ORDERED: Oxycodone/Acetaminophen 10/325 mg Tab PO STA (19:54)
[2018-11-13] MEDS ORDERED: Oxycodone/Acetaminophen 5/325 mg Tab PO PRN (20:17)
[2018-11-14] MEDS ORDERED: Oxycodone/Acetaminophen 5/325 mg Tab PO STA (00:26)
--- NOTE | 2018-11-14 01:30 | CP.PCM.PN ---
Subjective - Date & Time of Evaluation Date of Evaluation: 11/14/18 Time of Evaluation: 01:23 - Subjective Subjective: Patient was seen at bedside. I was asked to co-sign order for Percocet 5/325 two tabs stat. He is sitting in the bed. Complains of both feet pain, more in right foot by big toe where he has open wound. Also states that he can not sleep. Request Xanax which he takes at home sometimes to fall asleep. Has no other complaints now. Medical record was reviewed. This 58 year old white male was admitted ,was sent by a health advisor for IV anti biotics. He has PMH of: Atrial fibrillation. CAD. Chronic venous insufficiency. Tremors. Acute renal failure. Hemodialysis catheter insertion. Cellulitis. Hiatus hernia. Anxiety. Skin grafts in leg. Obesity-43.4 Kg/m2. Objective - Vital Signs/Intake and Output Vital Signs (last 24 hours): Temp Pulse Resp BP Pulse Ox 98.8 F 76 20 126/83 97 11/13/18 17:00 11/13/18 22:48 11/13/18 22:48 11/13/18 22:12 11/13/18 22:12 - Medications Medications: Current Medications Aztreonam (Azactam 2 Gm) 100 mls @ 100 mls/hr IVPB Q8 SHAHEED; Protocol Stop: 11/21/18 06:01 Vancomycin HCl (Vancomycin 1gm) 1 gm in 250 mls @ 167 mls/hr IVPB Q12 SHAHEED; Protocol - Labs Labs: 11/13/18 18:19 11/13/18 18:19 PT 19.4 SECONDS (9.4-12.5) H 11/13/18 18: INR 1.75 11/13/18 18:19 APTT 61.0 Seconds (26.9-38.3) H 11/13/18 18:19 - Constitutional Appears: Well, No Acute Distress, Other (Obese person, sitting in bed somewhat anxious.) - Head Exam Head Exam: ATRAUMATIC, NORMAL INSPECTION, NORMOCEPHALIC - Eye Exam Additional comments: Has eyeglasses on, left eye pterygium present. - ENT Exam ENT Exam: Normal External Ear Exam - Neck Exam Neck Exam: Normal Inspection - Respiratory Exam Respiratory Exam: NORMAL BREATHING PATTERN - Cardiovascular Exam Cardiovascular Exam: absent: JVD - GI/Abdominal Exam GI & Abdominal Exam: absent: Distended - Rectal Exam Rectal Exam: Deferred - Exam Additional comments: Deferred. - Extremities Exam Extremities Exam: Normal Inspection, Pedal Edema (Yes.Both legs are covered from foot to above knees by dressing.) - Back Exam Back Exam: NORMAL INSPECTION - Neurological Exam Neurological Exam: Alert, Awake, Oriented x3 - Psychiatric Exam Psychiatric exam: Anxious - Skin Skin Exam: Normal Color Assessment and Plan - Assessment and Plan (Free Text) Assessment: Both legs cellulitis. Chronic venous insufficiency. Anxiety. Atrial fibrillation. CAD. Chronic venous insufficiency. Tremors Hx Acute renal failure. Hemodialysis catheter insertion. Cellulitis. Hiatus hernia. Skin grafts in leg. Obesity Plan: Percocet 5/325 II PO x 1. Xanax 0.5 mg PO x 1.
[2018-11-14] MEDS ORDERED: Aztreonam 2 Gm in NS 100mL 100 ML IVPB SCH (06:00)
--- NOTE | 2018-11-14 08:46 | CARD ---
APPROVED REPORT Date of service: 11/13/2018 EKG Measurement Heart [id number] <Conclusion> Atrial fibrillation Moderate Rate.
--- NOTE | 2018-11-14 08:58 | RAD ---
Date of service: 11/13/2018 HISTORY: leg pain/infection COMPARISON: 09/22/2018 TECHNIQUE: 1 view obtained. FINDINGS: LUNGS: No active pulmonary disease. PLEURA: No significant pleural effusion identified, no pneumothorax apparent. CARDIOVASCULAR: No aortic atherosclerotic calcification present. Mild to moderate cardiomegaly no pulmonary vascular congestion. OSSEOUS STRUCTURES: No significant abnormalities. VISUALIZED UPPER ABDOMEN: Normal. OTHER FINDINGS: None. IMPRESSION: No active disease.
[2018-11-14] MEDS ORDERED: Piperacillin/Tazobact 3.375 gm 100 ML IVPB SCH ×2 (09:30→10:00)
[2018-11-14] MEDS: Potassium Chloride 20 mEq ER Tab PO SCH (10:12)
[2018-11-14] MEDS: diltiaZEM 180 mg/24 Hours CD Cap PO SCH (10:12)
[2018-11-14] MEDS: Vancomycin 1gm in NS 250ml 1 GM/250 ML BAG IVPB SCH ×2 (10:13→20:59)
[2018-11-14] MEDS: Oxycodone/Acetaminophen 10/325 mg Tab PO PRN ×3 (10:13→21:19)
[2018-11-14] MEDS: Insulin Reg-LOW-Coverage SC SCH ×3 (12:11→21:43)
--- NOTE | 2018-11-14 12:33 | CP.PCM.CON ---
<Ivan Fontana - Last Filed: 11/14/18 12:30> History of Present Illness - History of Present Illness History of Present Illness: Podiatry consult note - Drs. Kaur/Abdiel 58M seen and evaluated at bedside this AM with Dr. Kaur for b/l leg wounds and left hallux stasis ulceration. Patient known to podiatry team. States that he was sent in by Dr. Meadows from her office. States that he is having severe pain to his left big toe and it is [facility] States he keeps his legs elevated when in bed or lying down. Denies any new complaints and denies n/v/f/c today. PMHx: Atrial fibrillationCAD.Chronic venous insufficiency.Tremors.Acute renal failure.Hemodialysis catheter insertion.Cellulitis.Hiatus hernia, Anxiety, Skin grafts in leg, Obesity-43.4 Kg/m2 All: meropenem Past Patient History - Infectious Disease Hx of Infectious Diseases: None - Tetanus Immunizations Tetanus Immunization: Unknown - Past Social History Smoking Status: Former Smoker - CARDIAC Hx Cardiac Disorders: Yes (CAD) Hx Cardia Arrhythmia: Yes (afib) Hx Congestive Heart Failure: Yes Hx Hypercholesterolemia: Yes Hx Hypertension: Yes Hx Peripheral Edema: Yes (+2 pitting ble) Hx Peripheral Vascular Disease: Yes Other/Comment: chronic venous insufficiency - PULMONARY Other/Comment: had the sleep study pt thinks they told him he had sleep apnea went to follow up with appt but "there ws no one there, the place was gone." pt stated. Couldn't remember the name of the place - NEUROLOGICAL Hx Neurological Disorder: Yes Other/Comment: tremors - HEENT Hx HEENT Problems: Yes Other/Comment: glasses, HOONAH - RENAL Hx Chronic Kidney Disease: Yes Hx Renal Failure: Yes (ARF 11/2014) Other/Comment: acute hemodialysis 11/2016, hd cath implanted by dr martin 12/12/2014 to r jugular for acute hd - ENDOCRINE/METABOLIC Hx Diabetes Mellitus Type 2: Yes - HEMATOLOGICAL/ONCOLOGICAL Hx Blood Disorders: No - INTEGUMENTARY Hx Dermatological Problems: No Other/Comment: cellulitis on sudhir lower ext. Chronic venous insufficiency (previous triage) - MUSCULOSKELETAL/RHEUMATOLOGICAL Hx Musculoskeletal Disorders: Yes (chronic ble leg pain) Hx Falls: Yes Hx Unsteady Gait: Yes (walker) - GASTROINTESTINAL Hx Gastrointestinal Disorders: Yes (obese, hiatal hernia) Other/Comment: scheduled for endo 05/26/18 - GENITOURINARY/GYNECOLOGICAL Hx Genitourinary Disorders: No - PSYCHIATRIC Hx Psychophysiologic Disorder: Yes Hx Anxiety: Yes Hx Substance Use: No - SURGICAL HISTORY Hx Surgeries: Yes Other/Comment: multiple leg sx's including skin grafts done by various dr's, picc linus insertion ktae 06/2015 and to [facility]upe 09/25/16 - ANESTHESIA Hx Anesthesia: Yes Hx Anesthesia Reactions: No Hx Malignant Hyperthermia: No Meds Allergies/Adverse Reactions: Allergies Allergy/AdvReac Type Severity Reaction Status Date / Time meropenem [From Merrem] AdvReac PAIN Verified 11/13/18 16:57 - Medications Medications: Current Medications Alprazolam (Xanax) 1 mg PO TID PRN; Protocol PRN Reason: Anxiety Dabigatran (Pradaxa) 150 mg PO BID [facility]; Protocol Last Admin: 11/14/18 10:13 Dose: 150 mg Digoxin (Lanoxin) 0.25 mg PO 1400 [facility] Diltiazem HCl (Cardizem Cd) 180 mg PO DAILY [facility] Last Admin: 11/14/18 10:12 Dose: 180 mg Furosemide (Lasix) 80 mg PO DAILY [facility] Last Admin: 11/14/18 10:13 Dose: 80 mg Vancomycin HCl (Vancomycin 1gm) 1 gm in 250 mls @ 167 mls/hr IVPB Q12 [facility]; Protocol Last Admin: 11/14/18 10:13 Dose: 167 mls/hr Piperacillin Sod/Tazobactam Sod (Zosyn 3.375 In Ns 100ml) 100 mls @ 25 mls/hr IVPB Q8 [facility] Stop: 11/21/18 09:31 Insulin Human Regular (Humulin R Low) 0 units SC ACHS [facility]; Protocol Oxycodone/Acetaminophen (Percocet 10/325 Mg Tab) 1 tab PO Q6H PRN PRN Reason: Pain, moderate (4-7) Last Admin: 11/14/18 10:13 Dose: 1 tab Pantoprazole Sodium (Protonix Ec Tab) 40 mg PO 0600 [facility] Potassium Chloride (K-Dur 20 Meq Er Tab) 20 meq PO BRK [facility] Last Admin: 11/14/18 10:12 Dose: 20 meq Sitagliptin Phosphate (Januvia) 100 mg PO DAILY [facility] Last Admin: 11/14/18 10:12 Dose: 100 mg Physical Exam - Constitutional Appears: Non-toxic - Head Exam Head Exam: ATRAUMATIC - Extremities Exam Additional comments: LE focused exam: Vasc: Nonpalpable DP and PT pulses secondary to chronic indurated edema b/l. Temperature gradient warm to warm b/l. +2 pitting edema bilaterally. Ortho: Diffuse tenderness upon palpation noted to bilateral LE. Neuro: Gross and protective sensation diminished b/l. Derm: Mild drainage from L hallux ulceration, mild weeping at b/l LE. Rubor present to b/l lower extremities beginning from tibial tuberosity extending distally to digits, small breaks in the skin noted to b/l lower extremities, no malodor appreciated, no purulence, no fluctuance, no tracking, no tunneling, no undermining, no probe to bone, significant xerosis to b/l lower extremities. - Neurological Exam Neurological exam: Alert, Oriented x3 - Psychiatric Exam Psychiatric exam: Normal Affect Results - Vital Signs Recent Vital Signs: Last Vital Signs Temp 97.8 F 11/14/18 06:00 Pulse 83 11/14/18 10:12 Resp 20 11/14/18 06:00 BP 111/67 11/14/18 10:13 Pulse Ox 97 11/14/18 06:00 - Labs Result Diagrams: 11/13/18 18:19 11/13/18 18:19 Labs: Laboratory Results - last 24 hr 11/13/18 11/13/18 11/13/18 18:19 18:19 18:19 WBC 9.9 D RBC 3.57 Hgb 10.0 L D Hct 32.9 L MCV 92.2 D MCH 28.0 MCHC 30.4 L RDW 18.5 H Plt Count 415 MPV 9.0 Neut % (Auto) 75.7 H Lymph % (Auto) 11.0 L [place] % (Auto) 8.4 H Eos % (Auto) 3.4 Baso % (Auto) 1.5 Lymph # (Auto) 1.1 L [place] # (Auto) 0.8 H Eos # (Auto) 0.3 Baso # (Auto) 0.15 Absolute Neuts (auto) 7.46 H ESR PT 19.4 H INR 1.75 APTT 61.0 H Sodium 139 Potassium 4.0 Chloride 99 Carbon Dioxide 30 Anion Gap 15 BUN 15 Creatinine 0.9 Est GFR ( Amer) > 60 Est GFR (Non-Af Amer) > 60 POC Glucose (mg/dL) Random Glucose 86 Calcium 8.5 Total Bilirubin 0.5 AST 25 ALT 7 Alkaline Phosphatase 70 Lactate Dehydrogenase 409 Total Creatine Kinase 66 Troponin I < 0.01 C-Reactive Protein NT-Pro-B Natriuret Pep 1450 H Total Protein 7.3 Albumin 3.7 Globulin 3.6 Albumin/Globulin Ratio 1.0 L 11/14/18 11/14/18 11/14/18 06:25 06:25 11:23 WBC RBC Hgb Hct MCV MCH MCHC RDW Plt Count MPV Neut % (Auto) Lymph % (Auto) [place] % (Auto) Eos % (Auto) Baso % (Auto) Lymph # (Auto) [place] # (Auto) Eos # (Auto) Baso # (Auto) Absolute Neuts (auto) ESR 40 H PT INR APTT Sodium Potassium Chloride Carbon Dioxide Anion Gap BUN Creatinine Est GFR ( Amer) Est GFR (Non-Af Amer) POC Glucose (mg/dL) 157 H Random Glucose Calcium Total Bilirubin AST ALT Alkaline Phosphatase Lactate Dehydrogenase Total Creatine Kinase Troponin I C-Reactive Protein 20.20 H NT-Pro-B Natriuret Pep Total Protein Albumin Globulin Albumin/Globulin Ratio Assessment & Plan - Assessment and Plan (Free Text) Assessment: 58M with b/l venous stasis ulcerations and left hallux stasis ulceration Plan: Patient seen and evaluated with Dr. Kaur VSNeto, absent leukocytosis ESR 40 Dressings taken down and legs cleansed with sterile saline Dressed with maxorb, dry sterile dressing, and LARY Continue abx per medicine Wound culture ordered - pending Upon d/c to f/u with Dr. Meadows in her office as outpatient Will continue to follow Thank you for the consult - Date & Time Date: 11/14/18 Time: 12:35 <Andres Kaur - Last Filed: 11/14/18 13:40> Meds - Medications Medications: Current Medications Alprazolam (Xanax) 1 mg PO TID PRN; Protocol PRN Reason: Anxiety Dabigatran (Pradaxa) 150 mg PO BID [facility]; Protocol Last Admin: 11/14/18 10:13 Dose: 150 mg Digoxin (Lanoxin) 0.25 mg PO 1400 [facility] Diltiazem HCl (Cardizem Cd) 180 mg PO DAILY [facility] Last Admin: 11/14/18 10:12 Dose: 180 mg Furosemide (Lasix) 80 mg PO DAILY [facility] Last Admin: 11/14/18 10:13 Dose: 80 mg Vancomycin HCl (Vancomycin 1gm) 1 gm in 250 mls @ 167 mls/hr IVPB Q12 [facility]; Protocol Last Admin: 11/14/18 10:13 Dose: 167 mls/hr Piperacillin Sod/Tazobactam Sod (Zosyn 3.375 In Ns 100ml) 100 mls @ 25 mls/hr IVPB Q8 [facility] Stop: 11/21/18 09:31 Insulin Human Regular (Humulin R Low) 0 units SC ACHS [facility]; Protocol Oxycodone/Acetaminophen (Percocet 10/325 Mg Tab) 1 tab PO Q6H PRN PRN Reason: Pain, moderate (4-7) Last Admin: 11/14/18 10:13 Dose: 1 tab Pantoprazole Sodium (Protonix Ec Tab) 40 mg PO 0600 [facility] Potassium Chloride (K-Dur 20 Meq Er Tab) 20 meq PO BRK [facility] Last Admin: 11/14/18 10:12 Dose: 20 meq Sitagliptin Phosphate (Januvia) 100 mg PO DAILY [facility] Last Admin: 11/14/18 10:12 Dose: 100 mg Results - Vital Signs Recent Vital Signs: Last Vital Signs Temp 97.8 F 11/14/18 06:00 Pulse 83 11/14/18 10:12 Resp 20 11/14/18 06:00 BP 111/67 11/14/18 10:13 Pulse Ox 97 11/14/18 06:00 - Labs Result Diagrams: 11/13/18 18:19 11/13/18 18:19 Labs: Laboratory Results - last 24 hr 11/13/18 11/13/18 11/13/18 18:19 18:19 18:19 WBC 9.9 D RBC 3.57 Hgb 10.0 L D Hct 32.9 L MCV 92.2 D MCH 28.0 MCHC 30.4 L RDW 18.5 H Plt Count 415 MPV 9.0 Neut % (Auto) 75.7 H Lymph % (Auto) 11.0 L [place] % (Auto) 8.4 H Eos % (Auto) 3.4 Baso % (Auto) 1.5 Lymph # (Auto) 1.1 L [place] # (Auto) 0.8 H Eos # (Auto) 0.3 Baso # (Auto) 0.15 Absolute Neuts (auto) 7.46 H ESR PT 19.4 H INR 1.75 APTT 61.0 H Sodium 139 Potassium 4.0 Chloride 99 Carbon Dioxide 30 Anion Gap 15 BUN 15 Creatinine 0.9 Est GFR ( Amer) > 60 Est GFR (Non-Af Amer) > 60 POC Glucose (mg/dL) Random Glucose 86 Calcium 8.5 Total Bilirubin 0.5 AST 25 ALT 7 Alkaline Phosphatase 70 Lactate Dehydrogenase 409 Total Creatine Kinase 66 Troponin I < 0.01 C-Reactive Protein NT-Pro-B Natriuret Pep 1450 H Total Protein 7.3 Albumin 3.7 Globulin 3.6 Albumin/Globulin Ratio 1.0 L 11/14/18 11/14/18 11/14/18 06:25 06:25 11:23 WBC RBC Hgb Hct MCV MCH MCHC RDW Plt Count MPV Neut % (Auto) Lymph % (Auto) [place] % (Auto) Eos % (Auto) Baso % (Auto) Lymph # (Auto) [place] # (Auto) Eos # (Auto) Baso # (Auto) Absolute Neuts (auto) ESR 40 H PT INR APTT Sodium Potassium Chloride Carbon Dioxide Anion Gap BUN Creatinine Est GFR ( Amer) Est GFR (Non-Af Amer) POC Glucose (mg/dL) 157 H Random Glucose Calcium Total Bilirubin AST ALT Alkaline Phosphatase Lactate Dehydrogenase Total Creatine Kinase Troponin I C-Reactive Protein 20.20 H NT-Pro-B Natriuret Pep Total Protein Albumin Globulin Albumin/Globulin Ratio Attending/Attestation - Attestation I have personally seen and examined this patient.: Yes I have fully participated in the care of the patient.: Yes I have reviewed all pertinent clinical information: Yes
[2018-11-14] MEDS: Digoxin 250 mcg (0.25 mg) Tab PO SCH (15:43)
[2018-11-14] MEDS: Piperacillin/Tazobact 3.375 gm 100 ML IVPB SCH ×2 (15:44→22:42)
--- NOTE | 2018-11-14 20:37 | US ---
PROCEDURE: Lower extremity IGNACIO exam HISTORY: Peripheral vascular disease with pain and claudication. Diabetes. Previous smoker. PHYSICIAN(S): Jori Alejandra MD. FINDINGS: The resting IGNACIO's are normal: right, 1.09and left, 1 0 4. The brachial systolic pressures are symmetric. The low thigh pressures and waveforms are relatively normal. The calf PVR waveforms augment normally. No significant gradients are noted across the thighs. The ankle and metatarsal waveforms are relatively normal and symmetric. No significant pressure gradients are noted across the lower legs. IMPRESSION: 1. Relatively normal IGNACIO and PVR examination at rest.
--- NOTE | 2018-11-14 20:40 | CON ---
DATE OF CONSULTATION: 11/14/2018 The patient is seen in room 369. CHIEF COMPLAINT: Lower extremity and left big toe infection. HISTORY OF PRESENT ILLNESS: This is a 58-year-old male with a history of diastolic congestive heart failure, chronic lower extremity edema and cellulitis, diabetes, coronary artery disease, morbid obesity, BMI of 44, obstructive sleep apnea, and hypertension, who has failed his outpatient treatment of the left big toe, and the patient is admitted now with shortness of breath and left big toe as the primary. The patient denies any fevers, any chills. No chest pain. There is shortness of breath. There is orthopnea and dyspnea on exertion. No abdominal pain, diarrhea, or constipation. REVIEW OF SYSTEMS: Review of systems reveals 12-point review of systems performed. PAST MEDICAL HISTORY: Significant for diastolic congestive heart failure and chronic lower edema and cellulitis, diabetes mellitus, coronary artery disease, morbid obesity with BMI of 44, obstructive sleep apnea, and hypertension. PAST SURGICAL HISTORY: Significant for appendectomy and hernia repair. ALLERGIES: HE HAS STATED THAT THE PATIENT IS ALLERGIC TO MEROPENEM, ALTHOUGH THE PATIENT WAS GIVEN AUGMENTIN OUTPATIENT AND TOLERATED THE MEDICATIONS WELL. MEDICATIONS: Medications at home are noted and reviewed and include metoprolol, insulin, furosemide, digoxin, *------*. The patient was also on Bactrim. PHYSICAL EXAMINATION: GENERAL: The patient is in bed, in no acute distress. VITAL SIGNS: Temperature of 98, blood pressure is 111/67, respiratory rate of 20, heart rate of 78. HEENT: Examination of HEENT is unremarkable. NECK: Supple. LUNGS: Have decreased breath sounds. HEART: Normal S1, S2. ABDOMEN: Soft, nontender. EXTREMITIES: Examination of the toe reveals the left toe to have edema and erythema and discharge. LABORATORY DATA: Laboratory examination reveals a white count of 9, hemoglobin of 10, and platelets of 415. Sed rate is 40. Coagulation is noted. Chemistries are noted. BNP is 1450. Microbiology reveals MRSA, and the patient had Pseudomonas as outpatient grown with the MRSA. The patient also had a chest x-ray, which was negative. ASSESSMENT AND PLAN: He is a 58-year-old male with; 1. Left fifth toe cellulitis, must rule out underlying osteomyelitis versus peripheral arterial disease and in a patient with acute diastolic congestive heart failure on top of chronic congestive heart failure. We will treat the patient with vanco, Zosyn, although *------* Zosyn in a patient with congestive heart failure due to sodium load and THE PATIENT IS ALLERGIC TO MEROPENEM. We will review the cultures, which were done as an outpatient and make further recommendations. Should have imaging to rule out osteomyelitis.. We will order a vanco trough level an hour before the fourth dose, ABIs, and we will follow up with you. Case discussed with Dr. Meadows at length. Erik Alexander MD
--- NOTE | 2018-11-14 21:50 | HP ---
DATE OF EXAM: 11/14/2018 HISTORY OF PRESENT ILLNESS: The patient is a 58-year-old male who admitted through the emergency department on 11/13/2018 for recurrent cellulitis of the legs referred by Dr. Meadows. The patient reports increased swelling. He has a history of chronic edema and infected venous stasis ulcers of the lower extremity bilaterally with recurrent admissions. He denies any fever or chills. No shortness of breath. PAST MEDICAL HISTORY: Includes hypertension, hypertensive cardiovascular disease, CHF, paroxysmal atrial fibrillation, COPD, obstructive sleep apnea with morbid obesity, nonobstructive coronary artery disease, and type 2 diabetes mellitus with diabetic neuropathy. PAST SURGICAL HISTORY: Includes chronic venous insufficiency with chronic venous stasis ulcers of the lower extremities with recurrent cellulitis. CURRENT MEDICATIONS: Include Lasix 80 mg daily, Lipitor 80 mg daily, metoprolol 25 mg twice daily, Pradaxa 150 mg twice daily, Protonix 40 mg daily, K-Dur 20 mEq daily, Percocet 10/325 one tablet every 6 hours, and Xanax 1 mg twice daily for anxiety. SOCIAL HISTORY: The patient has a history of alcohol and tobacco use in the past. He currently does not use alcohol or tobacco. He lives alone. He is independent with ADLs and IADLs. FAMILY HISTORY: Noncontributory. ALLERGIES: THE PATIENT HAS NO KNOWN ALLERGIES. REVIEW OF SYSTEMS: The patient denies any chest pain or shortness of breath. He complains of some dyspnea on [id number] exertion. No fever. No chills. No nausea. No vomiting. No diarrhea. No melena. No bright red blood per rectum. No rash or jaundice. PHYSICAL EXAMINATION: GENERAL: The patient is a well-developed obese male in no acute distress. VITAL SIGNS: Blood pressure 111/67, pulse 83, respiratory rate 18, and temperature 97.8. HEENT: Head is normocephalic and atraumatic. Pupils equal, round, and reactive to light. Extraocular movements intact. NECK: Supple with no thyromegaly. No carotid bruit. No adenopathy. LUNGS: Show a few bibasilar rales. HEART: Regular rate and rhythm. ABDOMEN: Soft, nontender, and obese. Bowel sounds are normoactive. EXTREMITIES: Show 3 to 4+ brawny edema of the lower extremities to the knees bilaterally. Leg dressings are clean and intact. NEUROLOGIC: The patient is awake and oriented x3 without focal motor deficits. SKIN: Warm and dry. LABORATORY DATA: WBC is 9.9, hemoglobin 10, and hematocrit 32.9. Sodium 139, potassium 4, chloride 99, CO2 of 30, BUN 15, creatinine 0.9, and glucose 157. BNP is elevated 1450. Troponin is less than 0.01. Chest x-ray shows mild cardiomegaly with no infiltrates or effusions. There is no vascular congestion. IMPRESSION: 1. Recurrent cellulitis of the lower extremities secondary to infected chronic venous stasis ulcers. 2. Hypertension, hypertensive cardiovascular disease, and congestive heart failure. 3. Chronic obstructive pulmonary disease. 4. Obstructive sleep apnea. 5. Paroxysmal atrial fibrillation. 6. Nonobstructive coronary artery disease. 7. Type 2 diabetes mellitus with diabetic neuropathy. 8. Morbid obesity. PLAN: The patient is admitted to remote telemetry unit. He is started on IV antibiotics, wound care follow with Dr. Meadows/Vincent, physical therapy and social work for discharge planning. MELCHOR Sousa MD
[2018-11-15] MEDS: Oxycodone/Acetaminophen 10/325 mg Tab PO PRN (03:08)
[2018-11-15] MEDS: Piperacillin/Tazobact 3.375 gm 100 ML IVPB SCH ×3 (05:09→22:02)
[2018-11-15] MEDS: Pantoprazole 40 mg EC Tab PO SCH (05:11)
[2018-11-15] MEDS: Insulin Reg-LOW-Coverage SC SCH ×4 (08:14→23:55)
[2018-11-15] MEDS: Potassium Chloride 20 mEq ER Tab PO SCH (08:15)
--- NOTE | 2018-11-15 08:42 | CP.PCM.PN ---
<Cb Clifford - Last Filed: 11/15/18 08:37> Subjective - Date & Time of Evaluation Date of Evaluation: 11/15/18 Time of Evaluation: 08:37 - Subjective Subjective: Podiatry progress note - Drs. Kaur/Abdiel 58 y/o male seen and evaluated at bedside this AM with Dr. Kaur for b/l leg wounds and left hallux stasis ulceration. Patient well-known to podiatry team. Patient denies any other acute overnight events. Patient continues to complain of pain. States he keeps his legs elevated when in bed or lying down. Denies any new complaints and denies n/v/f/c today. Objective - Vital Signs/Intake and Output Vital Signs (last 24 hours): Temp Pulse Resp BP Pulse Ox 97.9 F 91 H 20 110/60 98 11/14/18 16:37 11/15/18 05:43 11/14/18 16:37 11/14/18 16:37 11/14/18 16:37 Intake and Output: 11/15/18 11/15/18 06:59 18:59 Intake Total 240 Output Total 800 Balance -560 - Medications Medications: Current Medications Alprazolam (Xanax) 1 mg PO TID PRN; Protocol PRN Reason: Anxiety Last Admin: 11/15/18 08:18 Dose: 1 mg Dabigatran (Pradaxa) 150 mg PO BID [facility]; Protocol Last Admin: 11/14/18 17:11 Dose: 150 mg Digoxin (Lanoxin) 0.25 mg PO 1400 [facility] Last Admin: 11/14/18 15:43 Dose: 0.25 mg Diltiazem HCl (Cardizem Cd) 180 mg PO DAILY [facility] Last Admin: 11/14/18 10:12 Dose: 180 mg Furosemide (Lasix) 80 mg PO DAILY [facility] Last Admin: 11/14/18 10:13 Dose: 80 mg Vancomycin HCl (Vancomycin 1gm) 1 gm in 250 mls @ 167 mls/hr IVPB Q12 [facility]; Protocol Last Admin: 11/14/18 20:59 Dose: 167 mls/hr Piperacillin Sod/Tazobactam Sod (Zosyn 3.375 In Ns 100ml) 100 mls @ 25 mls/hr IVPB Q8 [facility] Stop: 04/05/19 09:31 Last Admin: 11/15/18 05:09 Dose: 25 mls/hr Insulin Human Regular (Humulin R Low) 0 units SC ACHS [facility]; Protocol Last Admin: 11/15/18 08:14 Dose: Not Given Oxycodone/Acetaminophen (Percocet 10/325 Mg Tab) 1 tab PO Q6H PRN PRN Reason: Pain, moderate (4-7) Last Admin: 11/15/18 03:08 Dose: 1 tab Pantoprazole Sodium (Protonix Ec Tab) 40 mg PO 0600 [facility] Last Admin: 11/15/18 05:11 Dose: 40 mg Potassium Chloride (K-Dur 20 Meq Er Tab) 20 meq PO BRK [facility] Last Admin: 11/15/18 08:15 Dose: 20 meq Sitagliptin Phosphate (Januvia) 100 mg PO DAILY [facility] Last Admin: 11/14/18 10:12 Dose: 100 mg - Labs Labs: 11/13/18 18:19 11/13/18 18:19 PT 19.4 SECONDS (9.4-12.5) H 11/13/18 18:19 INR 1.75 11/13/18 18:19 APTT 61.0 Seconds (26.9-38.3) H 11/13/18 18:19 - Constitutional Appears: Well, Non-toxic, No Acute Distress - Head Exam Head Exam: ATRAUMATIC, NORMOCEPHALIC - Extremities Exam Additional comments: LE focused exam: Vasc: Nonpalpable DP and PT pulses secondary to chronic indurated edema b/l. Temperature gradient warm to warm b/l. +2 pitting edema bilaterally. Ortho: Diffuse tenderness upon palpation noted to bilateral LE. Neuro: Gross and protective sensation diminished b/l. Derm: Mild drainage from L hallux ulceration, mild weeping at b/l LE. Rubor present to b/l lower extremities beginning from tibial tuberosity extending distally to digits, small breaks in the skin noted to b/l lower extremities, no malodor appreciated, no purulence, no fluctuance, no tracking, no tunneling, no undermining, no probe to bone, significant xerosis to b/l lower extremities. - Neurological Exam Neurological Exam: Alert, Awake, Oriented x3 - Psychiatric Exam Psychiatric exam: Normal Affect, Normal Mood - Skin Skin Exam: Normal Color Assessment and Plan - Assessment and Plan (Free Text) Assessment: 58M with b/l venous stasis ulcerations and left hallux stasis ulceration Plan: Patient seen and evaluated with Dr. Vincent COOPER, absent leukocytosis ESR 40 Dressings taken down and legs cleansed with sterile saline Dressed with maxorb, dry sterile dressing, and LARY Continue abx per medicine Wound culture ordered - no growth after 24 hours Upon d/c to f/u with Dr. Meadows in her office as outpatient Will continue to follow <Andres Kaur - Last Filed: 11/15/18 11:31> Objective - Vital Signs/Intake and Output Vital Signs (last 24 hours): Temp Pulse Resp BP Pulse Ox 97.9 F 88 20 120/82 98 11/14/18 16:37 11/15/18 09:27 11/14/18 16:37 11/15/18 09:27 11/14/18 16:37 Intake and Output: 11/15/18 11/15/18 06:59 18:59 Intake Total 240 Output Total 800 Balance -560 - Medications Medications: Current Medications Alprazolam (Xanax) 1 mg PO TID [facility]; Protocol Dabigatran (Pradaxa) 150 mg PO BID [facility]; Protocol Last Admin: 11/15/18 09:26 Dose: 150 mg Digoxin (Lanoxin) 0.25 mg PO 1400 [facility] Last Admin: 11/14/18 15:43 Dose: 0.25 mg Diltiazem HCl (Cardizem Cd) 180 mg PO DAILY [facility] Last Admin: 11/15/18 09:27 Dose: 180 mg Furosemide (Lasix) 80 mg PO DAILY [facility] Last Admin: 11/15/18 09:27 Dose: 80 mg Vancomycin HCl (Vancomycin 1gm) 1 gm in 250 mls @ 167 mls/hr IVPB Q12 [facility]; Protocol Last Admin: 11/15/18 09:27 Dose: 167 mls/hr Piperacillin Sod/Tazobactam Sod (Zosyn 3.375 In Ns 100ml) 100 mls @ 25 mls/hr IVPB Q8 [facility] Stop: 11/21/18 09:31 Last Admin: 11/15/18 05:09 Dose: 25 mls/hr Insulin Human Regular (Humulin R Low) 0 units SC ACHS [facility]; Protocol Last Admin: 11/15/18 08:14 Dose: Not Given Oxycodone/Acetaminophen (Percocet 10/325 Mg Tab) 1 tab PO Q6H [facility] Pantoprazole Sodium (Protonix Ec Tab) 40 mg PO 0600 [facility] Last Admin: 11/15/18 05:11 Dose: 40 mg Potassium Chloride (K-Dur 20 Meq Er Tab) 20 meq PO BRK [facility] Last Admin: 11/15/18 08:15 Dose: 20 meq Sitagliptin Phosphate (Januvia) 100 mg PO DAILY [facility] Last Admin: 11/15/18 09:39 Dose: Not Given - Labs Labs: 11/13/18 18:19 11/13/18 18:19 PT 19.4 SECONDS (9.4-12.5) H 11/13/18 18:19 INR 1.75 11/13/18 18:19 APTT 61.0 Seconds (26.9-38.3) H 11/13/18 18:19 Attending/Attestation - Attestation I have personally seen and examined this patient.: Yes I have fully participated in the care of the patient.: Yes I have reviewed all pertinent clinical information, including history, physical exam and plan: Yes
[2018-11-15] MEDS: Vancomycin 1gm in NS 250ml 1 GM/250 ML BAG IVPB SCH ×2 (09:27→22:02)
[2018-11-15] MEDS: diltiaZEM 180 mg/24 Hours CD Cap PO SCH (09:27)
--- NOTE | 2018-11-15 10:11 | CP.PCM.PN ---
Subjective - Date & Time of Evaluation Date of Evaluation: 11/15/18 Time of Evaluation: 09:50 - Subjective Subjective: NAD, denies chestpain, no SOB Objective - Vital Signs/Intake and Output Vital Signs (last 24 hours): Temp Pulse Resp BP Pulse Ox 97.9 F 88 20 120/82 98 11/14/18 16:37 11/15/18 09:27 11/14/18 16:37 11/15/18 09:27 11/14/18 16:37 Intake and Output: 11/15/18 11/15/18 06:59 18:59 Intake Total 240 Output Total 800 Balance -560 - Medications Medications: Current Medications Dabigatran (Pradaxa) 150 mg PO BID [facility]; Protocol Last Admin: 11/15/18 09:26 Dose: 150 mg Digoxin (Lanoxin) 0.25 mg PO 1400 [facility] Last Admin: 11/14/18 15:43 Dose: 0.25 mg Diltiazem HCl (Cardizem Cd) 180 mg PO DAILY [facility] Last Admin: 11/15/18 09:27 Dose: 180 mg Furosemide (Lasix) 80 mg PO DAILY [facility] Last Admin: 11/15/18 09:27 Dose: 80 mg Vancomycin HCl (Vancomycin 1gm) 1 gm in 250 mls @ 167 mls/hr IVPB Q12 [facility]; Protocol Last Admin: 11/15/18 09:27 Dose: 167 mls/hr Piperacillin Sod/Tazobactam Sod (Zosyn 3.375 In Ns 100ml) 100 mls @ 25 mls/hr IVPB Q8 [facility] Stop: 11/21/18 09:31 Last Admin: 11/15/18 05:09 Dose: 25 mls/hr Insulin Human Regular (Humulin R Low) 0 units SC ACHS [facility]; Protocol Last Admin: 11/15/18 08:14 Dose: Not Given Oxycodone/Acetaminophen (Percocet 10/325 Mg Tab) 1 tab PO Q6H [facility] Pantoprazole Sodium (Protonix Ec Tab) 40 mg PO 0600 [facility] Last Admin: 11/15/18 05:11 Dose: 40 mg Potassium Chloride (K-Dur 20 Meq Er Tab) 20 meq PO BRK [facility] Last Admin: 11/15/18 08:15 Dose: 20 meq Sitagliptin Phosphate (Januvia) 100 mg PO DAILY [facility] Last Admin: 11/15/18 09:39 Dose: Not Given - Labs Labs: 11/13/18 18:19 11/13/18 18:19 PT 19.4 SECONDS (9.4-12.5) H 11/13/18 18:19 INR 1.75 11/13/18 18:19 APTT 61.0 Seconds (26.9-38.3) H 11/13/18 18:19 - Respiratory Exam Respiratory Exam: Clear to Ausculation Bilateral, NORMAL BREATHING PATTERN - Cardiovascular Exam Cardiovascular Exam: REGULAR RHYTHM - GI/Abdominal Exam GI & Abdominal Exam: Soft, Normal Bowel Sounds - Neurological Exam Neurological Exam: Alert, Awake Assessment and Plan (1) Leg ulcer Status: Chronic (2) Atrial fibrillation Status: Chronic (3) CHF (congestive heart failure) Status: Chronic (4) Cellulitis Status: Acute (5) CHF (congestive heart failure) Status: Chronic (6) COPD (chronic obstructive pulmonary disease) Status: Chronic (7) Diabetes Status: Chronic (8) Obstructive sleep apnea Status: Chronic - Assessment and Plan (Free Text) Plan: continue wound care, Abx, SW for DC planning
[2018-11-15] MEDS: Oxycodone/Acetaminophen 10/325 mg Tab PO SCH ×3 (13:21→22:03)
[2018-11-15] MEDS: Digoxin 250 mcg (0.25 mg) Tab PO SCH (13:48)
--- NOTE | 2018-11-15 23:20 | PN ---
DATE: 11/15/2018 SUBJECTIVE: The patient seen early this morning, room 369 bed two. No fevers and no chills. PHYSICAL EXAMINATION: VITAL SIGNS: Temperature is 98, blood pressure is 120/70, and respiratory rate of 18. HEENT: Unremarkable. NECK: Supple. LUNGS: Decreased breath sounds. HEART: Normal S1 and S2. ABDOMEN: Soft. LABORATORY DATA: Reveals a white count of 9.9 and hemoglobin of 10. Chemistries are noted and BUN of 15, creatinine of 0.9. Toxicology reveals his vancomycin trough of 13.9. Microbiology reveals the blood cultures are negative. Wound cultures are negative. MEDICATIONS: Review of orders reveals the patient to be on vancomycin and Zosyn. ASSESSMENT AND PLAN: This is a 58-year-old male with a left fifth toe cellulitis, must rule out underlying osteomyelitis with acute diastolic congestive heart failure on top of chronic congestive heart failure. Awaiting for wound culture. Currently, on vancomycin and Zosyn. The patient was examined. Podiatry exam with Dr. Kaur. We will follow with you to check on the wound cultures. Erik Alexander MD
[2018-11-16] MEDS: Oxycodone/Acetaminophen 10/325 mg Tab PO SCH ×3 (05:25→17:57)
[2018-11-16] MEDS: Pantoprazole 40 mg EC Tab PO SCH (05:25)
[2018-11-16] MEDS: Piperacillin/Tazobact 3.375 gm 100 ML IVPB SCH ×3 (06:14→21:20)
--- NOTE | 2018-11-16 06:16 | CP.PCM.PN ---
Subjective - Date & Time of Evaluation Date of Evaluation: 11/16/18 Time of Evaluation: 06:16 - Subjective Subjective: Patient was seen because resident physician had ordered Xanax 1 mg PO x1. He was seen at bedside. Has been feeling anxious . Has no other complaints. Medical record was reviewed. This 58 year old white male was admitted ,was sent by a advanced practice provider for IV antibiotics. He has PMH of: Atrial fibrillation. CAD. Chronic venous insufficiency. Tremors. Acute renal failure. Hemodialysis catheter insertion. Cellulitis. Hiatus hernia. Anxiety. Skin grafts in leg. Obesity-43.4 Kg/m2. Objective - Vital Signs/Intake and Output Vital Signs (last 24 hours): Temp Pulse Resp BP Pulse Ox 98 F 82 20 124/77 95 11/15/18 18:15 11/15/18 18:15 11/15/18 18:15 11/15/18 18:15 11/15/18 18:15 Intake and Output: 11/15/18 11/16/18 18:59 06:59 Intake Total 977 Output Total 2650 Balance -1673 - Medications Medications: Current Medications Alprazolam (Xanax) 1 mg PO TID [facility]; Protocol Last Admin: 11/15/18 18:14 Dose: 1 mg Dabigatran (Pradaxa) 150 mg PO BID [facility]; Protocol Last Admin: 11/15/18 18:12 Dose: 150 mg Digoxin (Lanoxin) 0.25 mg PO 1400 [facility] Last Admin: 11/15/18 13:48 Dose: 0.25 mg Diltiazem HCl (Cardizem Cd) 180 mg PO DAILY [facility] Last Admin: 11/15/18 09:27 Dose: 180 mg Furosemide (Lasix) 80 mg PO DAILY [facility] Last Admin: 11/15/18 09:27 Dose: 80 mg Vancomycin HCl (Vancomycin 1gm) 1 gm in 250 mls @ 167 mls/hr IVPB Q12 [facility]; Protocol Last Admin: 11/15/18 22:02 Dose: 167 mls/hr Piperacillin Sod/Tazobactam Sod (Zosyn 3.375 In Ns 100ml) 100 mls @ 25 mls/hr IVPB Q8 [facility] Stop: 11/21/18 09:31 Last Admin: 11/15/18 22:02 Dose: 25 mls/hr Insulin Human Regular (Humulin R Low) 0 units SC ACHS [facility]; Protocol Last Admin: 11/15/18 23:55 Dose: Not Given Oxycodone/Acetaminophen (Percocet 10/325 Mg Tab) 1 tab PO Q6H [facility] Last Admin: 11/16/18 05:25 Dose: 1 tab Pantoprazole Sodium (Protonix Ec Tab) 40 mg PO 0600 [facility] Last Admin: 11/16/18 05:25 Dose: 40 mg Potassium Chloride (K-Dur 20 Meq Er Tab) 20 meq PO BRK [facility] Last Admin: 11/15/18 08:15 Dose: 20 meq Sitagliptin Phosphate (Januvia) 100 mg PO DAILY [facility] Last Admin: 11/15/18 09:39 Dose: Not Given - Labs Labs: 11/13/18 18:19 11/13/18 18:19 PT 19.4 SECONDS (9.4-12.5) H 11/13/18 18:19 INR 1.75 11/13/18 18:19 APTT 61.0 Seconds (26.9-38.3) H 11/13/18 18:19 - Constitutional Appears: Well, No Acute Distress, Other (Obese person.) - Head Exam Head Exam: ATRAUMATIC, NORMAL INSPECTION, NORMOCEPHALIC - Eye Exam Eye Exam: Normal appearance - ENT Exam ENT Exam: Normal External Ear Exam - Neck Exam Neck Exam: Normal Inspection - Respiratory Exam Respiratory Exam: NORMAL BREATHING PATTERN - Cardiovascular Exam Cardiovascular Exam: absent: JVD - GI/Abdominal Exam GI & Abdominal Exam: absent: Distended - Rectal Exam Rectal Exam: Deferred - Exam Additional comments: Deferred. - Extremities Exam Extremities Exam: Normal Inspection - Back Exam Back Exam: NORMAL INSPECTION - Neurological Exam Neurological Exam: Alert, Awake, Oriented x3 - Psychiatric Exam Psychiatric exam: Anxious, Normal Affect - Skin Skin Exam: Normal Color Assessment and Plan - Assessment and Plan (Free Text) Assessment: Anxiety. Atrial fibrillation. CAD. Chronic venous insufficiency. Tremors. Acute renal failure. Hemodialysis catheter insertion. Cellulitis. Hiatus mansoor Skin grafts in leg. Obesity. Allergy to meropenem. Plan: Xanax 1 mg PO x 1. Continue present management.
[2018-11-16] MEDS: Insulin Reg-LOW-Coverage SC SCH ×4 (08:16→21:55)
[2018-11-16] MEDS: Potassium Chloride 20 mEq ER Tab PO SCH (10:18)
[2018-11-16] MEDS: Vancomycin 1gm in NS 250ml 1 GM/250 ML BAG IVPB SCH ×2 (10:19→21:20)
[2018-11-16] MEDS: diltiaZEM 180 mg/24 Hours CD Cap PO SCH (10:22)
--- NOTE | 2018-11-16 11:59 | CP.PCM.PN ---
<Cb Clifford - Last Filed: 11/16/18 11:57> Subjective - Date & Time of Evaluation Date of Evaluation: 11/16/18 Time of Evaluation: 11:57 - Subjective Subjective: Podiatry progress note - Drs. Kaur/Abdiel 58 y/o male seen and evaluated at bedside this AM with Dr. Kaur for b/l leg wounds and left hallux stasis ulceration. Patient well-known to podiatry team. Patient denies any other acute overnight events. Patient continues to complain of pain. States he keeps his legs elevated when in bed or lying down. Denies any new complaints and denies n/v/f/c today. Objective - Vital Signs/Intake and Output Vital Signs (last 24 hours): Temp Pulse Resp BP Pulse Ox 98 F 78 20 122/76 95 11/15/18 18:15 11/16/18 06:00 11/15/18 18:15 11/16/18 10:17 11/15/18 18:15 - Medications Medications: Current Medications Alprazolam (Xanax) 1 mg PO TID [facility]; Protocol Last Admin: 11/16/18 10:18 Dose: 1 mg Dabigatran (Pradaxa) 150 mg PO BID [facility]; Protocol Last Admin: 11/16/18 10:22 Dose: 150 mg Digoxin (Lanoxin) 0.25 mg PO 1400 [facility] Last Admin: 11/15/18 13:48 Dose: 0.25 mg Diltiazem HCl (Cardizem Cd) 180 mg PO DAILY [facility] Last Admin: 11/16/18 10:22 Dose: 180 mg Furosemide (Lasix) 80 mg PO DAILY [facility] Last Admin: 11/16/18 10:17 Dose: 80 mg Vancomycin HCl (Vancomycin 1gm) 1 gm in 250 mls @ 167 mls/hr IVPB Q12 [facility]; Protocol Last Admin: 11/16/18 10:19 Dose: 167 mls/hr Piperacillin Sod/Tazobactam Sod (Zosyn 3.375 In Ns 100ml) 100 mls @ 25 mls/hr IVPB Q8 [facility] Stop: 11/21/18 09:31 Last Admin: 11/16/18 06:14 Dose: 25 mls/hr Insulin Human Regular (Humulin R Low) 0 units SC ACHS [facility]; Protocol Last Admin: 11/16/18 08:16 Dose: Not Given Oxycodone/Acetaminophen (Percocet 10/325 Mg Tab) 1 tab PO Q6H [facility] Last Admin: 11/16/18 10:21 Dose: 1 tab Pantoprazole Sodium (Protonix Ec Tab) 40 mg PO 0600 [facility] Last Admin: 11/16/18 05:25 Dose: 40 mg Potassium Chloride (K-Dur 20 Meq Er Tab) 20 meq PO BRK [facility] Last Admin: 11/16/18 10:18 Dose: 20 meq Sitagliptin Phosphate (Januvia) 100 mg PO DAILY [facility] Last Admin: 11/16/18 10:32 Dose: Not Given - Labs Labs: 11/13/18 18:19 11/13/18 18:19 PT 19.4 SECONDS (9.4-12.5) H 11/13/18 18:19 INR 1.75 11/13/18 18:19 APTT 61.0 Seconds (26.9-38.3) H 11/13/18 18:19 - Constitutional Appears: Well, Non-toxic, No Acute Distress - Head Exam Head Exam: ATRAUMATIC, NORMOCEPHALIC - Extremities Exam Additional comments: LE focused exam: Vasc: Nonpalpable DP and PT pulses secondary to chronic indurated edema b/l. Temperature gradient warm to warm b/l. +2 pitting edema bilaterally. Ortho: Diffuse tenderness upon palpation noted to bilateral LE. Neuro: Gross and protective sensation diminished b/l. Derm: Mild drainage from L hallux ulceration, mild weeping at b/l LE. Rubor present to b/l lower extremities beginning from tibial tuberosity extending distally to digits, small breaks in the skin noted to b/l lower extremities, no malodor appreciated, no purulence, no fluctuance, no tracking, no tunneling, no undermining, no probe to bone, significant xerosis to b/l lower extremities. - Neurological Exam Neurological Exam: Alert, Awake, Oriented x3 - Psychiatric Exam Psychiatric exam: Normal Affect, Normal Mood Assessment and Plan - Assessment and Plan (Free Text) Assessment: 58M with b/l venous stasis ulcerations and left hallux stasis ulceration Plan: Patient seen and evaluated VSS, absent leukocytosis ESR 40 Dressings taken down and legs cleansed with sterile saline Dressed with maxorb, dry sterile dressing, and LARY Continue abx per medicine Wound culture ordered - Pending Blood Cultures- no growth after 24 hours Upon d/c to f/u with Dr. Meadows in her office as outpatient Will continue to follow <Andres Kaur - Last Filed: 11/18/18 08:07> Objective - Vital Signs/Intake and Output Vital Signs (last 24 hours): Temp Pulse Resp BP Pulse Ox 97.7 F 82 20 139/88 98 11/17/18 16:45 11/17/18 22:00 11/17/18 16:45 11/17/18 16:45 11/17/18 16:45 Intake and Output: 11/18/18 11/18/18 06:59 18:59 Intake Total 480 Output Total 1275 Balance -795 - Medications Medications: Current Medications Alprazolam (Xanax) 1 mg PO TID [facility]; Protocol Last Admin: 11/17/18 18:19 Dose: 1 mg Dabigatran (Pradaxa) 150 mg PO BID [facility]; Protocol Last Admin: 11/17/18 18:19 Dose: 150 mg Digoxin (Lanoxin) 0.25 mg PO 1400 [facility] Last Admin: 11/17/18 15:23 Dose: 0.25 mg Diltiazem HCl (Cardizem Cd) 180 mg PO DAILY [facility] Last Admin: 11/16/18 10:22 Dose: 180 mg Furosemide (Lasix) 80 mg PO DAILY [facility] Last Admin: 11/16/18 10:17 Dose: 80 mg Vancomycin HCl (Vancomycin 1gm) 1 gm in 250 mls @ 167 mls/hr IVPB Q12 [facility]; Protocol Last Admin: 11/17/18 23:27 Dose: 167 mls/hr Piperacillin Sod/Tazobactam Sod (Zosyn 3.375 In Ns 100ml) 100 mls @ 25 mls/hr IVPB Q8 [facility] Stop: 11/21/18 09:31 Last Admin: 11/18/18 06:27 Dose: 25 mls/hr Insulin Human Regular (Humulin R Low) 0 units SC ACHS [facility]; Protocol Last Admin: 11/16/18 21:55 Dose: Not Given Oxycodone/Acetaminophen (Percocet 10/325 Mg Tab) 1 tab PO Q6H [facility] Last Admin: 11/18/18 06:28 Dose: 1 tab Pantoprazole Sodium (Protonix Ec Tab) 40 mg PO 0600 [facility] Last Admin: 11/18/18 06:28 Dose: 40 mg Potassium Chloride (K-Dur 20 Meq Er Tab) 20 meq PO BRK [facility] Last Admin: 11/16/18 10:18 Dose: 20 meq Sitagliptin Phosphate (Januvia) 100 mg PO DAILY [facility] Last Admin: 11/16/18 10:32 Dose: Not Given - Labs Labs: 11/17/18 05:30 11/17/18 05:30 PT 19.4 SECONDS (9.4-12.5) H 11/13/18 18:19 INR 1.75 11/13/18 18:19 APTT 61.0 Seconds (26.9-38.3) H 11/13/18 18:19 Attending/Attestation - Attestation I have personally seen and examined this patient.: Yes I have fully participated in the care of the patient.: Yes I have reviewed all pertinent clinical information, including history, physical exam and plan: Yes
--- NOTE | 2018-11-16 13:16 | PN ---
DATE: 11/16/2018 SUBJECTIVE: The patient seen in bed, in room 369. No fevers and no chills. Comfortable. PHYSICAL EXAMINATION: VITAL SIGNS: Temperature is 98, blood pressure 124/70 and respiratory rate of 18. HEENT: Unremarkable. NECK: Supple. LUNGS: Decreased breath sounds. HEART: Normal S1 and S2. ABDOMEN: Soft. EXTREMITIES: Lower extremities are unchanged. Chronic changes. No evidence of infection. LABORATORY DATA: Reveals a white count of 9.9 and hemoglobin of 10. Chemistries are noted. Toxicology reveals vancomycin trough level of 13.9. Microbiology reveals a foot culture is pending. Blood cultures are no growth. ASSESSMENT AND PLAN: A 58-year-old male with left fifth toe cellulitis, must rule out underlying osteomyelitis. The patient with acute diastolic congestive heart failure on top of chronic congestive heart failure. Wound culture is pending. Currently on vancomycin and Zosyn. We will follow closely with you. Review of orders vancomycin and Zosyn is active. The patient's renal function is shown creatinine of 0.9 and he has had renal failure in the past. We will follow renal function closely. Erik Alexander MD
[2018-11-16] MEDS: Digoxin 250 mcg (0.25 mg) Tab PO SCH (14:53)
--- NOTE | 2018-11-16 15:13 | CP.PCM.PN ---
Subjective - Date & Time of Evaluation Date of Evaluation: 11/16/18 Time of Evaluation: 11:00 - Subjective Subjective: resting comfortably, NAD Objective - Vital Signs/Intake and Output Vital Signs (last 24 hours): Temp Pulse Resp BP Pulse Ox 98 F 78 20 122/76 95 11/15/18 18:15 11/16/18 06:00 11/15/18 18:15 11/16/18 10:17 11/15/18 18:15 - Medications Medications: Current Medications Alprazolam (Xanax) 1 mg PO TID [facility]; Protocol Last Admin: 11/16/18 14:53 Dose: 1 mg Dabigatran (Pradaxa) 150 mg PO BID [facility]; Protocol Last Admin: 11/16/18 10:22 Dose: 150 mg Digoxin (Lanoxin) 0.25 mg PO 1400 [facility] Last Admin: 11/16/18 14:53 Dose: 0.25 mg Diltiazem HCl (Cardizem Cd) 180 mg PO DAILY [facility] Last Admin: 11/16/18 10:22 Dose: 180 mg Furosemide (Lasix) 80 mg PO DAILY [facility] Last Admin: 11/16/18 10:17 Dose: 80 mg Vancomycin HCl (Vancomycin 1gm) 1 gm in 250 mls @ 167 mls/hr IVPB Q12 [facility]; Protocol Last Admin: 11/16/18 10:19 Dose: 167 mls/hr Piperacillin Sod/Tazobactam Sod (Zosyn 3.375 In Ns 100ml) 100 mls @ 25 mls/hr IVPB Q8 [facility] Stop: 11/21/18 09:31 Last Admin: 11/16/18 14:54 Dose: 25 mls/hr Insulin Human Regular (Humulin R Low) 0 units SC ACHS [facility]; Protocol Last Admin: 11/16/18 13:31 Dose: Not Given Oxycodone/Acetaminophen (Percocet 10/325 Mg Tab) 1 tab PO Q6H [facility] Last Admin: 11/16/18 10:21 Dose: 1 tab Pantoprazole Sodium (Protonix Ec Tab) 40 mg PO 0600 [facility] Last Admin: 11/16/18 05:25 Dose: 40 mg Potassium Chloride (K-Dur 20 Meq Er Tab) 20 meq PO BRK [facility] Last Admin: 11/16/18 10:18 Dose: 20 meq Sitagliptin Phosphate (Januvia) 100 mg PO DAILY [facility] Last Admin: 11/16/18 10:32 Dose: Not Given - Labs Labs: 11/13/18 18:19 11/13/18 18:19 PT 19.4 SECONDS (9.4-12.5) H 11/13/18 18:19 INR 1.75 11/13/18 18:19 APTT 61.0 Seconds (26.9-38.3) H 11/13/18 18:19 - Respiratory Exam Respiratory Exam: Clear to Ausculation Bilateral, NORMAL BREATHING PATTERN - Cardiovascular Exam Cardiovascular Exam: REGULAR RHYTHM - GI/Abdominal Exam GI & Abdominal Exam: Soft, Normal Bowel Sounds - Extremities Exam Additional comments: wound dressings of legs clean/intact Assessment and Plan (1) Leg ulcer Status: Chronic (2) Atrial fibrillation Status: Chronic (3) CHF (congestive heart failure) Status: Chronic (4) Cellulitis Status: Acute (5) CHF (congestive heart failure) Assessment & Plan: continue wound care, Abx, check labs in am Status: Chronic (6) COPD (chronic obstructive pulmonary disease) Status: Chronic (7) Diabetes Status: Chronic (8) Obstructive sleep apnea Status: Chronic
[2018-11-16] MEDS ORDERED: Oxycodone/Acetaminophen 5/325 mg Tab PO STA (21:07)
[2018-11-17] MEDS: Oxycodone/Acetaminophen 10/325 mg Tab PO SCH ×5 (02:30→23:29)
--- NOTE | 2018-11-17 05:21 | CP.PCM.PN ---
Subjective - Date & Time of Evaluation Date of Evaluation: 11/17/18 Time of Evaluation: 05:21 - Subjective Subjective: To be dictated. Co-signed Percocet order. Objective - Vital Signs/Intake and Output Vital Signs (last 24 hours): Temp Pulse Resp BP Pulse Ox 97.9 F 82 20 110/75 95 11/17/18 00:00 11/17/18 02:00 11/17/18 00:00 11/17/18 00:00 11/17/18 00:00 Intake and Output: 11/16/18 11/17/18 18:59 06:59 Intake Total 540 Output Total 1500 Balance -960 - Medications Medications: Current Medications Alprazolam (Xanax) 1 mg PO TID [facility]; Protocol Last Admin: 11/16/18 21:19 Dose: 1 mg Dabigatran (Pradaxa) 150 mg PO BID [facility]; Protocol Last Admin: 11/16/18 17:58 Dose: 150 mg Digoxin (Lanoxin) 0.25 mg PO 1400 [facility] Last Admin: 11/16/18 14:53 Dose: 0.25 mg Diltiazem HCl (Cardizem Cd) 180 mg PO DAILY [facility] Last Admin: 11/16/18 10:22 Dose: 180 mg Furosemide (Lasix) 80 mg PO DAILY [facility] Last Admin: 11/16/18 10:17 Dose: 80 mg Vancomycin HCl (Vancomycin 1gm) 1 gm in 250 mls @ 167 mls/hr IVPB Q12 [facility]; Protocol Last Admin: 11/16/18 21:20 Dose: 167 mls/hr Piperacillin Sod/Tazobactam Sod (Zosyn 3.375 In Ns 100ml) 100 mls @ 25 mls/hr IVPB Q8 [facility] Stop: 11/21/18 09:31 Last Admin: 11/16/18 21:20 Dose: 25 mls/hr Insulin Human Regular (Humulin R Low) 0 units SC ACHS [facility]; Protocol Last Admin: 11/16/18 21:55 Dose: Not Given Oxycodone/Acetaminophen (Percocet 10/325 Mg Tab) 1 tab PO Q6H [facility] Last Admin: 11/17/18 02:30 Dose: 1 tab Pantoprazole Sodium (Protonix Ec Tab) 40 mg PO 0600 [facility] Last Admin: 11/16/18 05:25 Dose: 40 mg Potassium Chloride (K-Dur 20 Meq Er Tab) 20 meq PO BRK [facility] Last Admin: 11/16/18 10:18 Dose: 20 meq Sitagliptin Phosphate (Januvia) 100 mg PO DAILY [facility] Last Admin: 11/16/18 10:32 Dose: Not Given - Labs Labs: 11/13/18 18:19 11/13/18 18:19 PT 19.4 SECONDS (9.4-12.5) H 11/13/18 18:19 INR 1.75 11/13/18 18:19 APTT 61.0 Seconds (26.9-38.3) H 11/13/18 18:19
[2018-11-17] MEDS: Pantoprazole 40 mg EC Tab PO SCH (05:44)
[2018-11-17] MEDS: Piperacillin/Tazobact 3.375 gm 100 ML IVPB SCH ×3 (05:44→23:28)
[2018-11-17 06:40] LABS: BASO # 0.12 K/mm3 (0.0-2.0); BASO % 1.6 % (0.0-3.0); EOS # 0.4 (0.0-0.7); EOS % 4.7 % (1.5-5.0); HEMOGLOBIN 9.8 g/dL (14.0-18.0); LYMPH % 13.2 % (22.0-35.0); MEAN CORPUSCULAR HEMOGLOBIN 27.3 pg (25.0-35.0); MEAN CORPUSCULAR HGB CONC 29.3 g/dl (31.0-37.0); MEAN PLATELET VOLUME 9.1 fl (7.0-11.0); MONO # 0.6 (0.1-0.6); MONO % 7.4 % (1.0-6.0); RBC 3.59 10^6/uL (3.5-6.1); RED CELL DISTRIBUTION WIDTH 18.7 % (11.5-14.5); WHITE BLOOD COUNT 7.7 10^3/uL (4.5-11.0)
[2018-11-17 06:49] LABS: ALB/GLOB RATIO 1.1 (1.1-1.8); ALT/SGPT 14 U/L (7-56); AST/SGOT 52 U/L (17-59); BLOOD UREA NITROGEN 22 mg/dL (7-21); CALCIUM 8.8 mg/dL (8.4-10.5); GFR NON-AFRICAN AMERICAN > 60
--- NOTE | 2018-11-17 12:28 | CP.PCM.PN ---
<Danielito Madera - Last Filed: 11/17/18 12:20> Subjective - Date & Time of Evaluation Date of Evaluation: 11/17/18 Time of Evaluation: 12:20 - Subjective Subjective: Podiatry progress note - Drs. Kaur/Abdiel 58 y/o M patient seen and evaluated at the bedside with Dr. Meadows for b/l venous stasis ulcerations and left hallux stasis ulceration. Patient was sleepy at the visit time. As per chart patient didn't have any acute overnight events. States he keeps his legs elevated when in bed or lying down. As per chart there was no new complaints and no overnight n/v/f/c. Objective - Vital Signs/Intake and Output Vital Signs (last 24 hours): Temp Pulse Resp BP Pulse Ox 98 F 118 H 20 102/69 96 11/17/18 08:16 11/17/18 08:16 11/17/18 08:16 11/17/18 08:16 11/17/18 08:16 Intake and Output: 11/17/18 11/17/18 06:59 18:59 Intake Total 690 Output Total 500 Balance 190 - Medications Medications: Current Medications Alprazolam (Xanax) 1 mg PO TID [facility]; Protocol Last Admin: 11/16/18 21:19 Dose: 1 mg Dabigatran (Pradaxa) 150 mg PO BID [facility]; Protocol Last Admin: 11/16/18 17:58 Dose: 150 mg Digoxin (Lanoxin) 0.25 mg PO 1400 [facility] Last Admin: 11/16/18 14:53 Dose: 0.25 mg Diltiazem HCl (Cardizem Cd) 180 mg PO DAILY [facility] Last Admin: 11/16/18 10:22 Dose: 180 mg Furosemide (Lasix) 80 mg PO DAILY [facility] Last Admin: 11/16/18 10:17 Dose: 80 mg Vancomycin HCl (Vancomycin 1gm) 1 gm in 250 mls @ 167 mls/hr IVPB Q12 [facility]; Protocol Last Admin: 11/16/18 21:20 Dose: 167 mls/hr Piperacillin Sod/Tazobactam Sod (Zosyn 3.375 In Ns 100ml) 100 mls @ 25 mls/hr IVPB Q8 [facility] Stop: 11/21/18 09:31 Last Admin: 11/17/18 05:44 Dose: 25 mls/hr Insulin Human Regular (Humulin R Low) 0 units SC ACHS [facility]; Protocol Last Admin: 11/16/18 21:55 Dose: Not Given Oxycodone/Acetaminophen (Percocet 10/325 Mg Tab) 1 tab PO Q6H [facility] Last Admin: 11/17/18 06:27 Dose: 1 tab Pantoprazole Sodium (Protonix Ec Tab) 40 mg PO 0600 [facility] Last Admin: 11/17/18 05:44 Dose: 40 mg Potassium Chloride (K-Dur 20 Meq Er Tab) 20 meq PO BRK [facility] Last Admin: 11/16/18 10:18 Dose: 20 meq Sitagliptin Phosphate (Januvia) 100 mg PO DAILY [facility] Last Admin: 11/16/18 10:32 Dose: Not Given - Labs Labs: 11/17/18 05:30 11/17/18 05:30 PT 19.4 SECONDS (9.4-12.5) H 11/13/18 18:19 INR 1.75 11/13/18 18:19 APTT 61.0 Seconds (26.9-38.3) H 11/13/18 18:19 - Constitutional Appears: Non-toxic, No Acute Distress - Head Exam Head Exam: ATRAUMATIC, NORMOCEPHALIC - Extremities Exam Additional comments: LE focused exam: Vasc: Non-palpable DP and PT pulses secondary to massive edema b/l. Temperature gradient warm to cool b/l. +2 pitting edema bilaterally. Cap refill < 3 sec to all digits b/l. Neuro: Gross and protective sensation diminished b/l. Derm: Moderate active drainage noted from L hallux ulceration, mild weeping at b/l LE. Mild erythema noted to b/l lower extremities beginning from tibial tuberosity extending distally to digits, small breaks in the skin noted to b/l lower extremities, no malodor appreciated, no purulence, no fluctuance, no tracking, no tunneling, no undermining, no probe to bone, significant xerosis to b/l lower extremities. MSK: Diffuse tenderness upon palpation noted to bilateral LE. - Neurological Exam Neurological Exam: Alert Assessment and Plan - Assessment and Plan (Free Text) Assessment: 58 y/o M patient seen and evaluated at the bedside for b/l venous stasis ulcerations and left hallux stasis ulceration Plan: Patient seen and evaluated at the bedside with Dr. Meadows. Plan discussed with Dr. Meadows Charts, labs and vitals reviewed: Afebrile, absent leukocytosis ESR 40 Dressings taken down and legs cleansed with sterile saline Dressed with dry sterile dressing, and LARY. Patient needs dressing change 3 times/day as his LE are activly weeping. Continue abx per medicine Wound culture ordered - Gram negative rods, Gram positive cocci Blood Cultures- no growth after 48 hours. Spoke to the primary team that the origin for the patient massive LE edema and a ctive serous drainage is mostly due to his cardiac condition and the patient might need cardiac consult. Upon d/c to f/u with Dr. Meadows in her office as outpatient Podiatry will continue to follow up the patient while in house <Jolene Meadows - Last Filed: 11/18/18 08:08> Objective - Vital Signs/Intake and Output Vital Signs (last 24 hours): Temp Pulse Resp BP Pulse Ox 97.7 F 82 20 139/88 98 11/17/18 16:45 11/17/18 22:00 11/17/18 16:45 11/17/18 16:45 11/17/18 16:45 Intake and Output: 11/18/18 11/18/18 06:59 18:59 Intake Total 480 Output Total 1275 Balance -795 - Medications Medications: Current Medications Alprazolam (Xanax) 1 mg PO TID [facility]; Protocol Last Admin: 11/17/18 18:19 Dose: 1 mg Dabigatran (Pradaxa) 150 mg PO BID [facility]; Protocol Last Admin: 11/17/18 18:19 Dose: 150 mg Digoxin (Lanoxin) 0.25 mg PO 1400 [facility] Last Admin: 11/17/18 15:23 Dose: 0.25 mg Diltiazem HCl (Cardizem Cd) 180 mg PO DAILY [facility] Last Admin: 11/16/18 10:22 Dose: 180 mg Furosemide (Lasix) 80 mg PO DAILY [facility] Last Admin: 11/16/18 10:17 Dose: 80 mg Vancomycin HCl (Vancomycin 1gm) 1 gm in 250 mls @ 167 mls/hr IVPB Q12 [facility]; Protocol Last Admin: 11/17/18 23:27 Dose: 167 mls/hr Piperacillin Sod/Tazobactam Sod (Zosyn 3.375 In Ns 100ml) 100 mls @ 25 mls/hr IVPB Q8 [facility] Stop: 11/21/18 09:31 Last Admin: 11/18/18 06:27 Dose: 25 mls/hr Insulin Human Regular (Humulin R Low) 0 units SC ACHS [facility]; Protocol Last Admin: 11/16/18 21:55 Dose: Not Given Oxycodone/Acetaminophen (Percocet 10/325 Mg Tab) 1 tab PO Q6H [facility] Last Admin: 11/18/18 06:28 Dose: 1 tab Pantoprazole Sodium (Protonix Ec Tab) 40 mg PO 0600 [facility] Last Admin: 11/18/18 06:28 Dose: 40 mg Potassium Chloride (K-Dur 20 Meq Er Tab) 20 meq PO BRK [facility] Last Admin: 11/16/18 10:18 Dose: 20 meq Sitagliptin Phosphate (Januvia) 100 mg PO DAILY [facility] Last Admin: 11/16/18 10:32 Dose: Not Given - Labs Labs: 11/17/18 05:30 11/17/18 05:30 PT 19.4 SECONDS (9.4-12.5) H 11/13/18 18:19 INR 1.75 11/13/18 18:19 APTT 61.0 Seconds (26.9-38.3) H 11/13/18 18:19 Attending/Attestation - Attestation I have personally seen and examined this patient.: Yes I have fully participated in the care of the patient.: Yes I have reviewed all pertinent clinical information, including history, physical exam and plan: Yes Notes (Text): 11/18/18 08:05 Pt seen still with active drainage of the toes; they are actively draiing serous fluid; I think this is more from his CHF then from an infection;
[2018-11-17] MEDS: Digoxin 250 mcg (0.25 mg) Tab PO SCH (15:23)
--- NOTE | 2018-11-17 15:57 | CP.PCM.PN ---
Subjective - Date & Time of Evaluation Date of Evaluation: 11/17/18 Time of Evaluation: 15:45 - Subjective Subjective: OOB in chair, NAD, denies chest pain. no SOB Objective - Vital Signs/Intake and Output Vital Signs (last 24 hours): Temp Pulse Resp BP Pulse Ox 98 F 118 H 20 102/69 96 11/17/18 08:16 11/17/18 08:16 11/17/18 08:16 11/17/18 08:16 11/17/18 08:16 Intake and Output: 11/17/18 11/17/18 06:59 18:59 Intake Total 690 Output Total 500 Balance 190 - Medications Medications: Current Medications Alprazolam (Xanax) 1 mg PO TID [facility]; Protocol Last Admin: 11/17/18 14:43 Dose: Not Given Dabigatran (Pradaxa) 150 mg PO BID [facility]; Protocol Last Admin: 11/16/18 17:58 Dose: 150 mg Digoxin (Lanoxin) 0.25 mg PO 1400 [facility] Last Admin: 11/17/18 15:23 Dose: 0.25 mg Diltiazem HCl (Cardizem Cd) 180 mg PO DAILY [facility] Last Admin: 11/16/18 10:22 Dose: 180 mg Furosemide (Lasix) 80 mg PO DAILY [facility] Last Admin: 11/16/18 10:17 Dose: 80 mg Vancomycin HCl (Vancomycin 1gm) 1 gm in 250 mls @ 167 mls/hr IVPB Q12 [facility]; Protocol Last Admin: 11/16/18 21:20 Dose: 167 mls/hr Piperacillin Sod/Tazobactam Sod (Zosyn 3.375 In Ns 100ml) 100 mls @ 25 mls/hr IVPB Q8 [facility] Stop: 11/21/18 09:31 Last Admin: 11/17/18 15:23 Dose: 25 mls/hr Insulin Human Regular (Humulin R Low) 0 units SC ACHS [facility]; Protocol Last Admin: 11/16/18 21:55 Dose: Not Given Oxycodone/Acetaminophen (Percocet 10/325 Mg Tab) 1 tab PO Q6H [facility] Last Admin: 11/17/18 06:27 Dose: 1 tab Pantoprazole Sodium (Protonix Ec Tab) 40 mg PO 0600 [facility] Last Admin: 11/17/18 05:44 Dose: 40 mg Potassium Chloride (K-Dur 20 Meq Er Tab) 20 meq PO BRK [facility] Last Admin: 11/16/18 10:18 Dose: 20 meq Sitagliptin Phosphate (Januvia) 100 mg PO DAILY [facility] Last Admin: 11/16/18 10:32 Dose: Not Given - Labs Labs: 11/17/18 05:30 11/17/18 05:30 PT 19.4 SECONDS (9.4-12.5) H 11/13/18 18:19 INR 1.75 11/13/18 18:19 APTT 61.0 Seconds (26.9-38.3) H 11/13/18 18:19 - Respiratory Exam Respiratory Exam: Clear to Ausculation Bilateral, NORMAL BREATHING PATTERN - Cardiovascular Exam Cardiovascular Exam: REGULAR RHYTHM - GI/Abdominal Exam GI & Abdominal Exam: Soft, Normal Bowel Sounds - Neurological Exam Neurological Exam: Alert, Awake, Normal Gait - Skin Skin Exam: Dry, Warm Assessment and Plan (1) Leg ulcer Status: Chronic (2) Atrial fibrillation Status: Chronic (3) CHF (congestive heart failure) Status: Chronic (4) Cellulitis Status: Acute (5) CHF (congestive heart failure) Status: Chronic (6) COPD (chronic obstructive pulmonary disease) Status: Chronic (7) Diabetes Status: Chronic (8) Obstructive sleep apnea Status: Chronic - Assessment and Plan (Free Text) Plan: continue wound care, Abx, AVIVA for DC planning
--- NOTE | 2018-11-17 19:33 | PN ---
DATE: 11/17/2018 SUBJECTIVE: The patient is in bed, in no acute distress, nontoxic on exam. PHYSICAL EXAMINATION: VITAL SIGNS: Temperature is 98, blood pressure 102/60, and respiratory rate of 20. HEENT: Unremarkable. NECK: Supple. LUNGS: Have decreased breath sounds. HEART: Normal S1 and S2. ABDOMEN: Soft. LABORATORY EXAMINATION: Reveals a white count of 7.7, hemoglobin of 9, and platelets of 403. Chemistries reveals a BUN of 22, creatinine of 1.1. Toxicology is noted. Microbiology reveals the patient's left foot with Pseudomonas and MRSA. Review of orders reveals the patient to be on vanco and Zosyn. ASSESSMENT AND PLAN: This is a 58-year-old male with methicillin-resistant Staphylococcus aureus and Pseudomonas left fifth toe cellulitis, underlying osteomyelitis in a patient with acute diastolic congestive heart failure on top of chronic congestive heart failure. We will follow the patient's vancomycin level as noted. We will follow closely with you. Erik Alexander MD
[2018-11-17] MEDS: Vancomycin 1gm in NS 250ml 1 GM/250 ML BAG IVPB SCH (23:27)
[2018-11-18] MEDS: Oxycodone/Acetaminophen 10/325 mg Tab PO SCH ×5 (02:01→23:02)
[2018-11-18] MEDS: Piperacillin/Tazobact 3.375 gm 100 ML IVPB SCH ×2 (06:27→13:24)
[2018-11-18] MEDS: Pantoprazole 40 mg EC Tab PO SCH (06:28)
[2018-11-18] MEDS: Insulin Reg-LOW-Coverage SC SCH ×4 (09:28→21:40)
[2018-11-18] MEDS: diltiaZEM 180 mg/24 Hours CD Cap PO SCH (09:35)
[2018-11-18] MEDS: Vancomycin 1gm in NS 250ml 1 GM/250 ML BAG IVPB SCH ×2 (09:36→23:45)
[2018-11-18] MEDS: Potassium Chloride 20 mEq ER Tab PO SCH (09:45)
--- NOTE | 2018-11-18 12:26 | CP.PCM.PN ---
Subjective - Date & Time of Evaluation Date of Evaluation: 11/18/18 Time of Evaluation: 12:23 - Subjective Subjective: Podiatry progress note - Drs. Kaur/Abdiel 58 y/o M patient seen and evaluated at the bedside with Dr. Meadows for b/l venous stasis ulcerations and left hallux stasis ulceration. Patient was awake and alert at the visit time. Patient denies having pain in his lower extremities. patient denies have any acute overnight events. States he keeps his legs elevated when in bed or lying down. Patient denies any new complaints and no overnight n/v/f/c. Objective - Vital Signs/Intake and Output Vital Signs (last 24 hours): Temp Pulse Resp BP Pulse Ox 97.9 F 78 20 108/73 94 L 11/18/18 08:26 11/18/18 09:35 11/18/18 08:26 11/18/18 09:36 11/18/18 08:26 Intake and Output: 11/18/18 11/18/18 06:59 18:59 Intake Total 480 Output Total 1275 Balance -795 - Medications Medications: Current Medications Alprazolam (Xanax) 1 mg PO TID [facility]; Protocol Last Admin: 11/18/18 09:35 Dose: 1 mg Dabigatran (Pradaxa) 150 mg PO BID [facility]; Protocol Last Admin: 11/18/18 09:35 Dose: 150 mg Digoxin (Lanoxin) 0.25 mg PO 1400 [facility] Last Admin: 11/17/18 15:23 Dose: 0.25 mg Diltiazem HCl (Cardizem Cd) 180 mg PO DAILY [facility] Last Admin: 11/18/18 09:35 Dose: 180 mg Furosemide (Lasix) 80 mg PO DAILY [facility] Last Admin: 11/18/18 09:36 Dose: 80 mg Furosemide (Lasix) 80 mg IVP DAILY [facility] Last Admin: 11/18/18 09:53 Dose: Not Given Vancomycin HCl (Vancomycin 1gm) 1 gm in 250 mls @ 167 mls/hr IVPB Q12 [facility]; Protocol Last Admin: 11/18/18 09:36 Dose: 167 mls/hr Piperacillin Sod/Tazobactam Sod (Zosyn 3.375 In Ns 100ml) 100 mls @ 25 mls/hr IVPB Q8 [facility] Stop: 11/21/18 09:31 Last Admin: 11/18/18 06:27 Dose: 25 mls/hr Insulin Human Regular (Humulin R Low) 0 units SC ACHS [facility]; Protocol Last Admin: 11/18/18 09:28 Dose: Not Given Oxycodone/Acetaminophen (Percocet 10/325 Mg Tab) 1 tab PO Q6H [facility] Last Admin: 11/18/18 09:51 Dose: 1 tab Pantoprazole Sodium (Protonix Ec Tab) 40 mg PO 0600 [facility] Last Admin: 11/18/18 06:28 Dose: 40 mg Potassium Chloride (K-Dur 20 Meq Er Tab) 20 meq PO BRK [facility] Last Admin: 11/18/18 09:45 Dose: 20 meq Sitagliptin Phosphate (Januvia) 100 mg PO DAILY [facility] Last Admin: 11/18/18 09:29 Dose: Not Given - Labs Labs: 11/17/18 05:30 11/17/18 05:30 PT 19.4 SECONDS (9.4-12.5) H 11/13/18 18:19 INR 1.75 11/13/18 18:19 APTT 61.0 Seconds (26.9-38.3) H 11/13/18 18:19 - Constitutional Appears: Non-toxic, No Acute Distress - Head Exam Head Exam: ATRAUMATIC, NORMOCEPHALIC - Extremities Exam Additional comments: LE focused exam: Vasc: Non-palpable DP and PT pulses secondary to massive edema b/l. Temperature gradient warm to cool b/l. +2 pitting edema bilaterally. Cap refill < 3 sec to all digits b/l. Neuro: Gross and protective sensation diminished b/l. Derm: Moderate active drainage noted from L hallux ulceration (less than yesterday), mild weeping at b/l LE. Mild erythema noted to b/l lower extremities beginning from tibial tuberosity extending distally to digits, small breaks in the skin noted to b/l lower extremities, no malodor appreciated, no purulence, no fluctuance, no tracking, no tunneling, no undermining, no probe to bone, sign ificant xerosis to b/l lower extremities. MSK: Diffuse tenderness upon palpation noted to bilateral LE. - Neurological Exam Neurological Exam: Alert, Awake, Oriented x3 Assessment and Plan - Assessment and Plan (Free Text) Assessment: 58 y/o M patient seen and evaluated at the bedside for b/l venous stasis ulcerations and left hallux stasis ulceration Plan: Patient seen and evaluated at the bedside with Dr. Meadows. Plan discussed with Dr. Meadows Charts, labs and vitals reviewed: Afebrile, absent leukocytosis ESR 40 Dressings taken down and legs cleansed with sterile saline Dressed with dry sterile dressing and maxorb to the left foot Patient needs dressing change 3 times/day as his LE are actively weeping. Continue abx per medicine Wound culture ordered - MRSA and pseudomonas aeruginosa. Blood Cultures- no growth after 4 days. Spoke to the primary team that the origin for the patient massive LE edema and active serous drainage is mostly due to his cardiac condition and the patient might need cardiac consult. Upon d/c to f/u with Dr. Meadows in her office as outpatient Podiatry will continue to follow up the patient while in house
[2018-11-18] MEDS: Petrolatum-Mineral Oil Oint (100gm) TOP SCH ×2 (12:28→18:01)
[2018-11-18] MEDS: Digoxin 250 mcg (0.25 mg) Tab PO SCH (13:16)
[2018-11-18] MEDS: metOLazone 5 MG TAB PO SCH (13:17)
--- NOTE | 2018-11-18 14:02 | CP.PCM.PN ---
Subjective - Date & Time of Evaluation Date of Evaluation: 11/18/18 Time of Evaluation: 09:00 - Subjective Subjective: resting comfortably, NAD, denies chest pain, no SOB Objective - Vital Signs/Intake and Output Vital Signs (last 24 hours): Temp Pulse Resp BP Pulse Ox 97.9 F 78 20 108/73 94 L 11/18/18 08:26 11/18/18 09:35 11/18/18 08:26 11/18/18 09:36 11/18/18 08:26 Intake and Output: 11/18/18 11/18/18 06:59 18:59 Intake Total 480 Output Total 1275 Balance -795 - Medications Medications: Current Medications Alprazolam (Xanax) 1 mg PO TID [facility]; Protocol Last Admin: 11/18/18 13:17 Dose: 1 mg Dabigatran (Pradaxa) 150 mg PO BID [facility]; Protocol Last Admin: 11/18/18 09:35 Dose: 150 mg Digoxin (Lanoxin) 0.25 mg PO 1400 [facility] Last Admin: 11/18/18 13:16 Dose: 0.25 mg Diltiazem HCl (Cardizem Cd) 180 mg PO DAILY [facility] Last Admin: 11/18/18 09:35 Dose: 180 mg Furosemide (Lasix) 80 mg IV BID [facility] Vancomycin HCl (Vancomycin 1gm) 1 gm in 250 mls @ 167 mls/hr IVPB Q12 [facility]; Protocol Last Admin: 11/18/18 09:36 Dose: 167 mls/hr Piperacillin Sod/Tazobactam Sod (Zosyn 3.375 In Ns 100ml) 100 mls @ 25 mls/hr IVPB Q8 [facility] Stop: 11/21/18 09:31 Last Admin: 11/18/18 13:24 Dose: 25 mls/hr Insulin Human Regular (Humulin R Low) 0 units SC ACHS [facility]; Protocol Last Admin: 11/18/18 13:05 Dose: Not Given Metolazone (Zaroxolyn) 5 mg PO DAILY [facility] Last Admin: 11/18/18 13:17 Dose: 5 mg Multi-Ingredient Ointment (Hydrophor Oint) 0 gm TOP Q6H [facility] Oxycodone/Acetaminophen (Percocet 10/325 Mg Tab) 1 tab PO Q6H [facility] Last Admin: 11/18/18 09:51 Dose: 1 tab Pantoprazole Sodium (Protonix Ec Tab) 40 mg PO 0600 [facility] Last Admin: 11/18/18 06:28 Dose: 40 mg Potassium Chloride (K-Dur 20 Meq Er Tab) 20 meq PO BRK [facility] Last Admin: 11/18/18 09:45 Dose: 20 meq Sitagliptin Phosphate (Januvia) 100 mg PO DAILY [facility] Last Admin: 11/18/18 09:29 Dose: Not Given Spironolactone (Aldactone) 25 mg PO BID [facility] - Labs Labs: 11/17/18 05:30 11/17/18 05:30 PT 19.4 SECONDS (9.4-12.5) H 11/13/18 18:19 INR 1.75 11/13/18 18:19 APTT 61.0 Seconds (26.9-38.3) H 11/13/18 18:19 - Respiratory Exam Respiratory Exam: Clear to Ausculation Bilateral, NORMAL BREATHING PATTERN - Cardiovascular Exam Cardiovascular Exam: REGULAR RHYTHM - GI/Abdominal Exam GI & Abdominal Exam: Soft, Normal Bowel Sounds - Extremities Exam Additional comments: weeping edema of legs, ulcers clean with mild surrounding erythema, no exudate, 4+ brawny edema to knees bilat - Neurological Exam Neurological Exam: Alert, Awake, Normal Gait Assessment and Plan (1) Leg ulcer Status: Chronic (2) Atrial fibrillation Status: Chronic (3) CHF (congestive heart failure) Status: Chronic (4) Cellulitis Status: Acute (5) CHF (congestive heart failure) Status: Chronic (6) COPD (chronic obstructive pulmonary disease) Status: Chronic (7) Diabetes Status: Chronic (8) Obstructive sleep apnea Status: Chronic - Assessment and Plan (Free Text) Plan: start IV Lasix, cardiology consult Dr. Rogers/Sam, continue wound care/IV Abx, monitor glucose levels
[2018-11-18] MEDS: Cefepime 1gm in NS 100ml 1 GM/100 ML BAG IVPB SCH (22:32)
[2018-11-19] MEDS: Vancomycin 1gm in NS 250ml 1 GM/250 ML BAG IVPB SCH ×3 (00:33→23:13)
--- NOTE | 2018-11-19 03:02 | CON ---
DATE: 11/18/2018 REASON FOR CONSULTATION: Shortness of breath, swelling of legs, leg ulcers, oozing fluid, and history of CHF. HISTORY OF PRESENT ILLNESS: A 58-year-old male admitted with history that he is oozing lot of fluid from both legs with ulceration, foul smelling, and discharge. Also getting shortness of breath. He states that he stopped Lasix for a while because he had very shaky feeling and he thought the Lasix was doing that, so he stopped the Lasix. The patient denies chest pain or palpitations. The patient has history of chronic leg ulcers, hypertension, hyperlipidemia, chronic atrial fibrillation, COPD, history of morbid obesity, and history of CHF in the past. PAST MEDICAL HISTORY: Positive for chronic atrial fibrillation, morbid obesity, obstructive sleep apnea, diabetes, hypertension, hyperlipidemia and COPD. Noncompliant with medication. Recently, he was not taking Lasix on his own. History of ulcers on the legs. PREVIOUS HOSPITALIZATIONS AND WORKUP: The patient had cardiac catheterization on 05/12/2014 that showed nonobstructive coronary artery disease. Last echo was done on 12/17/2016 that showed ejection fraction of 55%, RV function was moderately reduced, mild tricuspid regurgitation, and RV systolic pressure of 22 mmHg. Later on, the patient had MUGA scan done, which showed ejection fraction of 64%, this was done on 12/18/2016. The patient's repeat echo on 04/23/2018 showed ejection fraction within normal limits, normal segmental wall motion, severe pulmonary hypertension, RV systolic pressure of 71 mmHg, trace mitral regurgitation, and trace tricuspid regurgitation. PERSONAL HISTORY: Denies smoking. Denies alcohol abuse. ALLERGIES: DENIES ANY ALLERGIES. LIST OF HOME MEDICATIONS: The patient is supposed to take Zaroxolyn 5 mg one tablet twice a week, diltiazem CD 240 p.o. daily, spironolactone 25 b.i.d., simvastatin 10 mg daily, Januvia 100 mg daily, potassium 20 mEq daily, Protonix 40 daily, Percocet 10/325 mg tablet p.o. every 4 hours p.r.n. for pain, metoprolol tartrate 25 b.i.d., insulin 30 units subcutaneously a.c., Levemir 80 units subcutaneously at bedtime, furosemide one tablet p.o. b.i.d., Lanoxin 0.25 daily, Pradaxa 150 mg p.o. b.i.d., albuterol hand nebulizer therapy, and Xanax 1 mg p.o. t.i.d. REVIEW OF SYSTEMS: All the systems reviewed. Positives mentioned in history, others were negative. PHYSICAL EXAMINATION: VITAL SIGNS: Blood pressure 101/65, respirations 20, pulse 80, and afebrile. HEENT: Head is normocephalic. Eyes; pupils normal. Conjunctivae slightly pale. NECK: JVP low. Carotids equal. THORAX: AP diameter normal. LUNGS: No significant rales. CARDIOVASCULAR: S1 and S2. Irregular rhythm due to atrial fibrillation. ABDOMEN: Protuberant. Bowel sounds normal. EXTREMITIES: 4+ bilateral edema of multiple ulcers, oozing fluid from both legs. LABORATORY DATA: WBC 7.7, hemoglobin 9.8, hematocrit 33.4, and platelets 403. Random sugar 113. Sodium 139, potassium 3.8, BUN 22, creatinine 1.1, calcium 8.8, phosphorous 3.6, and magnesium 2.1. AST and ALT normal. Total protein and albumin normal. Chest x-ray [id number] cardiomegaly, otherwise clear lungs. EKG showed atrial fibrillation, moderate ventricular rate of around 76 per minute. DIAGNOSES: Severe edema in bilateral legs, shortness of breath, obstructive sleep apnea, right heart failure, chronic atrial fibrillation, chronic venostasis, ulcers of both lower legs with oozing of fluid with foul smelling, chronic obstructive pulmonary disease, morbid obesity, history of cardiac catheterization in 2014, and nonobstructive coronary artery disease. MUGA scan in the past showed preserved left ventricular function. Most recent echo in 04/2018 showed preserved left ventricular function, moderate pulmonary hypertension, right ventricular systolic pressure of 71, [id number] pulmonary hypertension, mild mitral regurgitation, and mild tricuspid regurgitation. Poor compliant patient, stopped Lasix on his own. PLAN: To diurese aggressively. We will put Lasix 80 IV b.i.d. Zaroxolyn 5 mg p.o. daily, and Aldactone 25 mg p.o. b.i.d. The patient is on diltiazem CD 180 daily, Januvia 100 mg daily, potassium 20 mEq p.o. daily, digoxin 0.25 daily, cefepime 1 g IV every 8 hours, Pradaxa 150 mg p.o. b.i.d., and vancomycin 1 g IV every 12 hours. We will monitor intake and output and we will follow with you. Jalen Rogers MD
[2018-11-19] MEDS: Petrolatum-Mineral Oil Oint (100gm) TOP SCH ×4 (05:55→17:45)
[2018-11-19] MEDS: Pantoprazole 40 mg EC Tab PO SCH (06:27)
[2018-11-19] MEDS: Cefepime 1gm in NS 100ml 1 GM/100 ML BAG IVPB SCH ×3 (06:28→21:25)
[2018-11-19] MEDS: Oxycodone/Acetaminophen 10/325 mg Tab PO SCH ×4 (06:28→21:37)
--- NOTE | 2018-11-19 07:17 | CP.PCM.PN ---
Subjective - Date & Time of Evaluation Date of Evaluation: 11/19/18 Time of Evaluation: 06:35 - Subjective Subjective: Awake, sitting side of bed, no distress Reason for consultation and follow up:Cardiac follow up, history of chronic atrial fibrillation, hypertension, COPD, hyperlipidemia, admitted for leg cellulitis Seen and examined by me and Dr. Rogers Objective - Vital Signs/Intake and Output Vital Signs (last 24 hours): Temp Pulse Resp BP Pulse Ox 97.9 F 84 20 101/65 94 L 11/18/18 08:26 11/18/18 22:00 11/18/18 08:26 11/18/18 18:00 11/18/18 08:26 - Medications Medications: Current Medications Alprazolam (Xanax) 1 mg PO TID [facility]; Protocol Last Admin: 11/18/18 18:01 Dose: 1 mg Dabigatran (Pradaxa) 150 mg PO BID [facility]; Protocol Last Admin: 11/18/18 18:01 Dose: 150 mg Digoxin (Lanoxin) 0.25 mg PO 1400 [facility] Last Admin: 11/18/18 13:16 Dose: 0.25 mg Diltiazem HCl (Cardizem Cd) 180 mg PO DAILY [facility] Last Admin: 11/18/18 09:35 Dose: 180 mg Furosemide (Lasix) 80 mg IV BID [facility] Last Admin: 11/18/18 18:00 Dose: 80 mg Vancomycin HCl (Vancomycin 1gm) 1 gm in 250 mls @ 167 mls/hr IVPB Q12 [facility]; Protocol Last Admin: 11/19/18 00:33 Dose: 167 mls/hr Cefepime HCl (Maxipime 1gm) 1 gm in 100 mls @ 100 mls/hr IVPB Q8 [facility]; Protocol Stop: 11/26/18 22:01 Last Admin: 11/19/18 06:28 Dose: 100 mls/hr Insulin Human Regular (Humulin R Low) 0 units SC ACHS [facility]; Protocol Last Admin: 11/18/18 21:40 Dose: Not Given Metolazone (Zaroxolyn) 5 mg PO DAILY [facility] Last Admin: 11/18/18 13:17 Dose: 5 mg Multi-Ingredient Ointment (Hydrophor Oint) 0 gm TOP Q6H [facility] Last Admin: 11/19/18 05:55 Dose: Not Given Oxycodone/Acetaminophen (Percocet 10/325 Mg Tab) 1 tab PO Q6H [facility] Last Admin: 11/19/18 06:28 Dose: 1 tab Pantoprazole Sodium (Protonix Ec Tab) 40 mg PO 0600 [facility] Last Admin: 11/19/18 06:27 Dose: 40 mg Potassium Chloride (K-Dur 20 Meq Er Tab) 20 meq PO BRK [facility] Last Admin: 11/18/18 09:45 Dose: 20 meq Sitagliptin Phosphate (Januvia) 100 mg PO DAILY [facility] Last Admin: 11/18/18 09:29 Dose: Not Given Spironolactone (Aldactone) 25 mg PO BID [facility] Last Admin: 11/18/18 18:01 Dose: 25 mg - Labs Labs: 11/17/18 05:30 11/17/18 05:30 PT 19.4 SECONDS (9.4-12.5) H 11/13/18 18:19 INR 1.75 11/13/18 18:19 APTT 61.0 Seconds (26.9-38.3) H 11/13/18 18:19 - Constitutional Appears: Non-toxic, No Acute Distress - Head Exam Head Exam: NORMAL INSPECTION, NORMOCEPHALIC - Eye Exam Eye Exam: Normal appearance Pupil Exam: NORMAL ACCOMODATION - ENT Exam ENT Exam: Mucous Membranes Moist, Normal Exam - Respiratory Exam Respiratory Exam: Decreased Breath Sounds, Clear to Ausculation Bilateral, NORMAL BREATHING PATTERN - Cardiovascular Exam Cardiovascular Exam: REGULAR RHYTHM, +S1, +S2 - GI/Abdominal Exam GI & Abdominal Exam: Soft, Normal Bowel Sounds - Extremities Exam Additional comments: 4+ bilateral leg cellulitis legs sampson wrapped with serosanguinous drainage - Neurological Exam Neurological Exam: Alert, Awake, Oriented x3 - Psychiatric Exam Psychiatric exam: Normal Affect, Normal Mood - Skin Skin Exam: Dry, Normal Color, Warm Assessment and Plan - Assessment and Plan (Free Text) Assessment: A 58 year old male who came in to the ER due to leg cellulitis and worsening leg edema. He was on Lasix but stopped it on his own as he claimed that Lasix made him feel shaky. History of congestive heart failure, ,hypertension, hyperlipide melissa, chronic atrial fibrillation, chronic leg ulcers, chronic venous insuficiency,tremors, COPD, morbidly obese,sleep apnea, diabetes, anxiety, renal insufficiency at one point requiring hemodialysis (11/2016). Cardiac cath on 05/12/2014 showed non-obstructive coronary artery disease. Echo done on 04/23/2018 showed LVEF within normal limits, trace MR and TR, severe pulmonary hypertension,[id number]. MUGA scan done on 12/18/2016 and showed LVEF 64%. Chest X ray showed mild to moderate cardiomegaly. EKG showed atrial fibrillation. Severe leg edema, aggressively diurese. Glucose controlled. Plan: Denies shortness of breath Heart rate controlled Blood pressure controlled Aggressively diurese On Pradaxa 150 mg BID, Digoxin 0.25 mg daily,Cardizem 180 mg daily, Lasix 80 mg BID,Zaroxylyn 5 mg daily, Aldactone 25 mg BID K-dur 20 meq daily Continue IV antibiotics as ordered Continue current management Elevate legs Lifestyle modifications Weight reduction Will follow up Plan and treatment discussed with Dr. Rogers
[2018-11-19] MEDS: Insulin Reg-LOW-Coverage SC SCH ×4 (08:09→21:13)
--- NOTE | 2018-11-19 08:22 | PN ---
DATE: 11/18/2018 SUBJECTIVE: The patient is in bed, in no acute distress, nontoxic. PHYSICAL EXAMINATION: VITAL SIGNS: Temperature is 97, blood pressure is 101/60, respiratory rate of 18. HEENT: Unremarkable. NECK: Supple. LUNGS: Have decreased breath sounds. HEART: Normal S1, S2. ABDOMEN: Soft. LABORATORY DATA: Reveals a white count of 7.7, hemoglobin of 9. Chemistries are noted and toxicology is noted. Microbiology is reviewed. The patient's vancomycin level of 13.9 is noted. Microbiology has MRSA and Pseudomonas. The Pseudomonas is sensitive to cefepime, resistant to Cipro and sensitive to meropenem. Review of orders reveals the patient to be on vancomycin and Zosyn. The patient's creatinine is holding at 1.1. ASSESSMENT AND PLAN: A 58-year-old male with methicillin-resistant Staphylococcus aureus and Pseudomonas, left fifth toe cellulitis, underlying osteomyelitis, acute diastolic congestive heart failure and chronic congestive heart failure, on vancomycin and Zosyn at this time whereas Pseudomonas is sensitive to cefepime. We will discontinue the Zosyn and give cefepime pending input from Podiatry regarding the extent of this infection. The patient is allergic to meropenem according to chart; however, he has been tolerating the Zosyn well. We will change him to vancomycin and Maxipime. Duration of therapy will be discussed with Podiatry. Erik Alexander MD
[2018-11-19] MEDS: metOLazone 5 MG TAB PO SCH (09:30)
[2018-11-19] MEDS: Potassium Chloride 20 mEq ER Tab PO SCH (09:31)
[2018-11-19] MEDS: diltiaZEM 180 mg/24 Hours CD Cap PO SCH (09:31)
--- NOTE | 2018-11-19 09:53 | CP.PCM.PN ---
<Danielito Madera - Last Filed: 11/19/18 09:51> Subjective - Date & Time of Evaluation Date of Evaluation: 11/19/18 Time of Evaluation: 09:52 - Subjective Subjective: Podiatry progress note - Drs. Kaur/Abdiel 58 y/o M patient seen and evaluated at the bedside for b/l venous stasis ulcerations and left hallux stasis ulceration. Patient was awake and alert at the visit time. Patient denies having pain in his lower extremities. patient denies have any acute overnight events. States he keeps his legs elevated when in bed or lying down. Patient denies any new complaints and no overnight n/v/f/c. Objective - Vital Signs/Intake and Output Vital Signs (last 24 hours): Temp Pulse Resp BP Pulse Ox 97.3 F L 67 20 136/72 96 11/19/18 07:46 11/19/18 07:46 11/19/18 07:46 11/19/18 09:29 11/19/18 07:46 - Medications Medications: Current Medications Alprazolam (Xanax) 1 mg PO TID [facility]; Protocol Last Admin: 11/19/18 09:30 Dose: 1 mg Dabigatran (Pradaxa) 150 mg PO BID [facility]; Protocol Last Admin: 11/19/18 09:30 Dose: 150 mg Digoxin (Lanoxin) 0.25 mg PO 1400 [facility] Last Admin: 11/18/18 13:16 Dose: 0.25 mg Diltiazem HCl (Cardizem Cd) 180 mg PO DAILY [facility] Last Admin: 11/19/18 09:31 Dose: 180 mg Furosemide (Lasix) 80 mg IV BID [facility] Last Admin: 11/19/18 09:29 Dose: 80 mg Vancomycin HCl (Vancomycin 1gm) 1 gm in 250 mls @ 167 mls/hr IVPB Q12 [facility]; Protocol Last Admin: 11/19/18 09:29 Dose: 167 mls/hr Cefepime HCl (Maxipime 1gm) 1 gm in 100 mls @ 100 mls/hr IVPB Q8 [facility]; Protocol Stop: 11/26/18 22:01 Last Admin: 11/19/18 06:28 Dose: 100 mls/hr Insulin Human Regular (Humulin R Low) 0 units SC ACHS [facility]; Protocol Last Admin: 11/19/18 08:09 Dose: Not Given Metolazone (Zaroxolyn) 5 mg PO DAILY [facility] Last Admin: 11/19/18 09:30 Dose: 5 mg Multi-Ingredient Ointment (Hydrophor Oint) 0 gm TOP Q6H [facility] Last Admin: 11/19/18 07:52 Dose: Not Given Oxycodone/Acetaminophen (Percocet 10/325 Mg Tab) 1 tab PO Q6H [facility] Last Admin: 11/19/18 09:30 Dose: 1 tab Pantoprazole Sodium (Protonix Ec Tab) 40 mg PO 0600 [facility] Last Admin: 11/19/18 06:27 Dose: 40 mg Potassium Chloride (K-Dur 20 Meq Er Tab) 20 meq PO BRK [facility] Last Admin: 11/19/18 09:31 Dose: 20 meq Sitagliptin Phosphate (Januvia) 100 mg PO DAILY [facility] Last Admin: 11/19/18 09:30 Dose: 100 mg Spironolactone (Aldactone) 25 mg PO BID [facility] Last Admin: 11/19/18 09:31 Dose: 25 mg - Labs Labs: 11/17/18 05:30 11/17/18 05:30 PT 19.4 SECONDS (9.4-12.5) H 11/13/18 18:19 INR 1.75 11/13/18 18:19 APTT 61.0 Seconds (26.9-38.3) H 11/13/18 18:19 - Constitutional Appears: Well, Non-toxic, No Acute Distress - Head Exam Head Exam: ATRAUMATIC, NORMOCEPHALIC - Extremities Exam Additional comments: LE focused exam: Vasc: Non-palpable DP and PT pulses secondary to massive edema b/l. Temperature gradient warm to cool b/l. +2 pitting edema bilaterally. Cap refill < 3 sec to all digits b/l. Neuro: Gross and protective sensation diminished b/l. Derm: Mild active drainage noted from L hallux ulceration (less than yesterday), mild weeping at b/l LE. Mild erythema noted to b/l lower extremities beginning from tibial tuberosity extending distally to digits, small breaks in the skin noted to b/l lower extremities, no malodor appreciated, no purulence, no fluctuance, no tracking, no tunneling, no undermining, no probe to bone, significant xerosis to b/l lower extremities. MSK: Diffuse tenderness upon palpation noted to bilateral LE. - Neurological Exam Neurological Exam: Alert, Awake, Oriented x3 - Psychiatric Exam Psychiatric exam: Normal Affect, Normal Mood Assessment and Plan - Assessment and Plan (Free Text) Assessment: 58 y/o M patient seen and evaluated at the bedside for b/l venous stasis ulcera tions and left hallux stasis ulceration Plan: Patient seen and evaluated at the bedside Plan discussed with Dr. Kaur Charts, labs and vitals reviewed: Afebrile, absent leukocytosis ESR 40 Dressings taken down and legs cleansed with sterile saline Dressed with dry sterile dressing and maxorb to the left foot Patient needs dressing change 3 times/day as his LE are actively weeping. Continue abx per medicine Wound culture ordered - MRSA and pseudomonas aeruginosa. Blood Cultures- no growth after 4 days. Spoke to the primary team that the origin for the patient massive LE edema and active serous drainage is mostly due to his cardiac condition and the patient might need cardiac consult. Upon d/c to f/u with Dr. Meadows in her office as outpatient Podiatry will continue to follow up the patient while in house <Andres Kaur - Last Filed: 11/19/18 10:54> Objective - Vital Signs/Intake and Output Vital Signs (last 24 hours): Temp Pulse Resp BP Pulse Ox 97.3 F L 67 20 136/72 96 11/19/18 07:46 11/19/18 07:46 11/19/18 07:46 11/19/18 09:29 11/19/18 07:46 - Medications Medications: Current Medications Alprazolam (Xanax) 1 mg PO TID [facility]; Protocol Last Admin: 11/19/18 09:30 Dose: 1 mg Dabigatran (Pradaxa) 150 mg PO BID [facility]; Protocol Last Admin: 11/19/18 09:30 Dose: 150 mg Digoxin (Lanoxin) 0.25 mg PO 1400 [facility] Last Admin: 11/18/18 13:16 Dose: 0.25 mg Diltiazem HCl (Cardizem Cd) 180 mg PO DAILY [facility] Last Admin: 11/19/18 09:31 Dose: 180 mg Furosemide (Lasix) 80 mg IV BID [facility] Last Admin: 11/19/18 09:29 Dose: 80 mg Cefepime HCl (Maxipime 1gm) 1 gm in 100 mls @ 100 mls/hr IVPB Q8 [facility]; Protocol Stop: 11/26/18 22:01 Last Admin: 11/19/18 06:28 Dose: 100 mls/hr Insulin Human Regular (Humulin R Low) 0 units SC ACHS [facility]; Protocol Last Admin: 11/19/18 08:09 Dose: Not Given Metolazone (Zaroxolyn) 5 mg PO DAILY [facility] Last Admin: 11/19/18 09:30 Dose: 5 mg Multi-Ingredient Ointment (Hydrophor Oint) 0 gm TOP Q6H [facility] Last Admin: 11/19/18 07:52 Dose: Not Given Oxycodone/Acetaminophen (Percocet 10/325 Mg Tab) 1 tab PO Q6H [facility] Last Admin: 11/19/18 09:30 Dose: 1 tab Pantoprazole Sodium (Protonix Ec Tab) 40 mg PO 0600 [facility] Last Admin: 11/19/18 06:27 Dose: 40 mg Potassium Chloride (K-Dur 20 Meq Er Tab) 20 meq PO BRK [facility] Last Admin: 11/19/18 09:31 Dose: 20 meq Sitagliptin Phosphate (Januvia) 100 mg PO DAILY [facility] Last Admin: 11/19/18 09:30 Dose: 100 mg Spironolactone (Aldactone) 25 mg PO BID [facility] Last Admin: 11/19/18 09:31 Dose: 25 mg - Labs Labs: 11/17/18 05:30 11/17/18 05:30 PT 19.4 SECONDS (9.4-12.5) H 11/13/18 18:19 INR 1.75 11/13/18 18:19 APTT 61.0 Seconds (26.9-38.3) H 11/13/18 18:19 Attending/Attestation - Attestation I have personally seen and examined this patient.: Yes I have fully participated in the care of the patient.: Yes I have reviewed all pertinent clinical information, including history, physical exam and plan: Yes
[2018-11-19] MEDS: Digoxin 250 mcg (0.25 mg) Tab PO SCH (14:05)
--- NOTE | 2018-11-19 15:39 | CP.PCM.PN ---
Subjective - Date & Time of Evaluation Date of Evaluation: 11/19/18 Time of Evaluation: 12:00 - Subjective Subjective: resting comfortably, NAD Objective - Vital Signs/Intake and Output Vital Signs (last 24 hours): Temp Pulse Resp BP Pulse Ox 97.3 F L 67 20 136/72 96 11/19/18 07:46 11/19/18 07:46 11/19/18 07:46 11/19/18 09:29 11/19/18 07:46 - Medications Medications: Current Medications Alprazolam (Xanax) 1 mg PO TID [facility]; Protocol Last Admin: 11/19/18 14:05 Dose: 1 mg Dabigatran (Pradaxa) 150 mg PO BID [facility]; Protocol Last Admin: 11/19/18 09:30 Dose: 150 mg Digoxin (Lanoxin) 0.25 mg PO 1400 [facility] Last Admin: 11/19/18 14:05 Dose: 0.25 mg Diltiazem HCl (Cardizem Cd) 180 mg PO DAILY [facility] Last Admin: 11/19/18 09:31 Dose: 180 mg Furosemide (Lasix) 80 mg IV BID [facility] Last Admin: 11/19/18 09:29 Dose: 80 mg Cefepime HCl (Maxipime 1gm) 1 gm in 100 mls @ 100 mls/hr IVPB Q8 [facility]; Protocol Stop: 11/26/18 22:01 Last Admin: 11/19/18 14:05 Dose: 100 mls/hr Insulin Human Regular (Humulin R Low) 0 units SC ACHS [facility]; Protocol Last Admin: 11/19/18 11:28 Dose: Not Given Metolazone (Zaroxolyn) 5 mg PO DAILY [facility] Last Admin: 11/19/18 09:30 Dose: 5 mg Multi-Ingredient Ointment (Hydrophor Oint) 0 gm TOP Q6H [facility] Last Admin: 11/19/18 13:28 Dose: Not Given Oxycodone/Acetaminophen (Percocet 10/325 Mg Tab) 1 tab PO Q6H [facility] Last Admin: 11/19/18 09:30 Dose: 1 tab Pantoprazole Sodium (Protonix Ec Tab) 40 mg PO 0600 [facility] Last Admin: 11/19/18 06:27 Dose: 40 mg Potassium Chloride (K-Dur 20 Meq Er Tab) 20 meq PO BRK [facility] Last Admin: 11/19/18 09:31 Dose: 20 meq Sitagliptin Phosphate (Januvia) 100 mg PO DAILY [facility] Last Admin: 11/19/18 09:30 Dose: 100 mg Spironolactone (Aldactone) 25 mg PO BID [facility] Last Admin: 11/19/18 09:31 Dose: 25 mg - Labs Labs: 11/17/18 05:30 11/17/18 05:30 PT 19.4 SECONDS (9.4-12.5) H 11/13/18 18:19 INR 1.75 11/13/18 18:19 APTT 61.0 Seconds (26.9-38.3) H 11/13/18 18:19 - Respiratory Exam Respiratory Exam: Clear to Ausculation Bilateral, NORMAL BREATHING PATTERN - Cardiovascular Exam Cardiovascular Exam: REGULAR RHYTHM - GI/Abdominal Exam GI & Abdominal Exam: Soft, Normal Bowel Sounds - Extremities Exam Extremities Exam: Pedal Edema - Neurological Exam Neurological Exam: Alert, Awake Assessment and Plan (1) Leg ulcer Status: Chronic (2) Atrial fibrillation Status: Chronic (3) CHF (congestive heart failure) Status: Chronic (4) Cellulitis Status: Acute (5) CHF (congestive heart failure) Status: Chronic (6) COPD (chronic obstructive pulmonary disease) Status: Chronic (7) Diabetes Status: Chronic (8) Obstructive sleep apnea Status: Chronic - Assessment and Plan (Free Text) Plan: continue wound care/IV Abx/podiatry follow-up, on Lasix 80 bid & Zaroxylen 5qd, continue cardio follow-up, PT and SW for DC planning, check labs in am
--- NOTE | 2018-11-19 23:55 | PN ---
DATE: 11/19/2018 SUBJECTIVE: The patient was seen earlier this morning. No fevers. No chills. No nausea, diarrhea. He is tolerating antibiotics well. PHYSICAL EXAMINATION VITAL SIGNS: Temperature is 97, blood pressure is 113/60, respiratory rate of 18. HEENT: Unremarkable. NECK: Supple. LUNGS: Decreased breath sounds. HEART: Normal S1, S2. ABDOMEN: Soft. LABORATORY DATA: Reveals a white count of 7.7. Sed rate is 40. BUN is 22, creatinine of 1.1. Toxicology is noted. Microbiology reveals pseudomonas and MRSA, the sensitivity is reviewed. The blood cultures are negative. MEDICATIONS: Review of orders reveals the patient to be on cefepime. Vancomycin was discontinued. ASSESSMENT AND PLAN: A 58-year-old male who was seen earlier today in room 369, bed 2 with methicillin-resistant Staphylococcus aureus and pseudomonas left fifth toe cellulitis, must rule out an underlying osteomyelitis in a patient with acute diastolic congestive heart failure and chronic congestive heart failure on vancomycin and Zosyn and change it to vancomycin and Maxipime at this point. Dr. Kaur's note is reviewed. Dr. Leiva's note is also reviewed. Erik Alexander MD
[2018-11-20] MEDS: Petrolatum-Mineral Oil Oint (100gm) TOP SCH ×4 (01:45→17:55)
[2018-11-20] MEDS: Oxycodone/Acetaminophen 10/325 mg Tab PO SCH ×7 (03:38→22:01)
[2018-11-20] MEDS: Cefepime 1gm in NS 100ml 1 GM/100 ML BAG IVPB SCH ×3 (05:42→22:02)
[2018-11-20] MEDS: Pantoprazole 40 mg EC Tab PO SCH (05:42)
[2018-11-20] MEDS: Insulin Reg-LOW-Coverage SC SCH ×3 (07:33→16:28)
[2018-11-20 07:54] LABS: BASO # 0.06 K/mm3 (0.0-2.0); BASO % 0.7 % (0.0-3.0); EOS # 0.3 (0.0-0.7); EOS % 3.1 % (1.5-5.0); HEMOGLOBIN 9.9 g/dL (14.0-18.0); LYMPH # 0.6 (1.2-3.4); LYMPH % 7.3 % (22.0-35.0); MEAN CELL VOLUME 91.9 fl (80.0-105.0); MEAN CORPUSCULAR HEMOGLOBIN 27.8 pg (25.0-35.0); MEAN CORPUSCULAR HGB CONC 30.3 g/dl (31.0-37.0); MEAN PLATELET VOLUME 9.2 fl (7.0-11.0); MONO # 0.5 (0.1-0.6); MONO % 5.2 % (1.0-6.0); RBC 3.56 10^6/uL (3.5-6.1); RED CELL DISTRIBUTION WIDTH 18.5 % (11.5-14.5); WHITE BLOOD COUNT 8.6 10^3/uL (4.5-11.0)
[2018-11-20 08:16] LABS: ALB/GLOB RATIO 1.1 (1.1-1.8); ALBUMIN 3.7 g/dL (3.0-4.8); ALT/SGPT 15 U/L (7-56); AST/SGOT 33 U/L (17-59); BLOOD UREA NITROGEN 18 mg/dL (7-21); CALCIUM 8.9 mg/dL (8.4-10.5); GFR NON-AFRICAN AMERICAN > 60
--- NOTE | 2018-11-20 08:29 | CP.PCM.PN ---
Subjective - Date & Time of Evaluation Date of Evaluation: 11/20/18 Time of Evaluation: 07:10 - Subjective Subjective: Awake, Lying in bed, complaining of leg pain Reason for consultation and follow up:Cardiac follow up, history of chronic atrial fibrillation, hypertension, COPD, hyperlipidemia, admitted for leg cellulitis Seen and examined by me and Dr. Vargas Objective - Vital Signs/Intake and Output Vital Signs (last 24 hours): Temp Pulse Resp BP Pulse Ox 98.2 F 81 19 115/72 96 11/19/18 17:32 11/20/18 06:00 11/19/18 17:32 11/19/18 17:44 11/19/18 17:32 Intake and Output: 11/20/18 11/20/18 06:59 18:59 Intake Total 360 Output Total 1600 Balance -1240 - Medications Medications: Current Medications Alprazolam (Xanax) 1 mg PO TID [facility]; Protocol Last Admin: 11/19/18 17:45 Dose: 1 mg Dabigatran (Pradaxa) 150 mg PO BID [facility]; Protocol Last Admin: 11/19/18 17:45 Dose: 150 mg Digoxin (Lanoxin) 0.25 mg PO 1400 [facility] Last Admin: 11/19/18 14:05 Dose: 0.25 mg Diltiazem HCl (Cardizem Cd) 180 mg PO DAILY [facility] Last Admin: 11/19/18 09:31 Dose: 180 mg Furosemide (Lasix) 80 mg IV BID [facility] Last Admin: 11/19/18 17:44 Dose: 80 mg Cefepime HCl (Maxipime 1gm) 1 gm in 100 mls @ 100 mls/hr IVPB Q8 [facility]; Protocol Stop: 11/26/18 22:01 Last Admin: 11/20/18 05:42 Dose: 100 mls/hr Vancomycin HCl (Vancomycin 1gm) 1 gm in 250 mls @ 167 mls/hr IVPB Q12H [facility]; Protocol Stop: 11/28/18 20:31 Last Admin: 11/19/18 23:13 Dose: 167 mls/hr Insulin Human Regular (Humulin R Low) 0 units SC ACHS [facility]; Protocol Last Admin: 11/20/18 07:33 Dose: Not Given Metolazone (Zaroxolyn) 5 mg PO DAILY [facility] Last Admin: 11/19/18 09:30 Dose: 5 mg Multi-Ingredient Ointment (Hydrophor Oint) 0 gm TOP Q6H [facility] Last Admin: 11/20/18 06:12 Dose: Not Given Oxycodone/Acetaminophen (Percocet 10/325 Mg Tab) 1 tab PO Q6H [facility] Last Admin: 11/20/18 03:40 Dose: 1 tab Pantoprazole Sodium (Protonix Ec Tab) 40 mg PO 0600 [facility] Last Admin: 11/20/18 05:42 Dose: 40 mg Potassium Chloride (K-Dur 20 Meq Er Tab) 20 meq PO BRK [facility] Last Admin: 11/19/18 09:31 Dose: 20 meq Sitagliptin Phosphate (Januvia) 100 mg PO DAILY [facility] Last Admin: 11/19/18 09:30 Dose: 100 mg Spironolactone (Aldactone) 25 mg PO BID [facility] Last Admin: 11/19/18 17:45 Dose: 25 mg - Labs Labs: 11/20/18 07:20 11/20/18 07:20 PT 19.4 SECONDS (9.4-12.5) H 11/13/18 18:19 INR 1.75 11/13/18 18:19 APTT 61.0 Seconds (26.9-38.3) H 11/13/18 18:19 - Constitutional Appears: Non-toxic, No Acute Distress - Head Exam Head Exam: NORMAL INSPECTION, NORMOCEPHALIC - Eye Exam Eye Exam: Normal appearance Pupil Exam: NORMAL ACCOMODATION - ENT Exam ENT Exam: Mucous Membranes Moist, Normal Exam - Respiratory Exam Respiratory Exam: Decreased Breath Sounds, Clear to Ausculation Bilateral, NORMAL BREATHING PATTERN - Cardiovascular Exam Cardiovascular Exam: +S1, +S2 - GI/Abdominal Exam GI & Abdominal Exam: Soft, Normal Bowel Sounds - Extremities Exam Additional comments: bilateral leg cellulitis, sampson wrapped - Neurological Exam Neurological Exam: Alert, Awake, Oriented x3 - Psychiatric Exam Psychiatric exam: Normal Affect, Normal Mood - Skin Skin Exam: Dry, Normal Color, Warm Assessment and Plan - Assessment and Plan (Free Text) Assessment: A 58 year old male who came in to the ER due to leg cellulitis and worsening leg edema. He was on Lasix but stopped it on his own as he claimed that Lasix made him feel shaky. History of congestive heart failure, ,hypertension, hyperlipidemia, chronic atrial fibrillation, chronic leg ulcers, chronic venous insuficiency,tremors, COPD, morbidly obese,sleep apnea, diabetes, anxiety, renal insufficiency at one point requiring hemodialysis (11/2016). Cardiac cath on 05/12/2014 showed non-obstructive coronary artery disease. Echo done on 04/23/2018 showed LVEF within normal limits, trace MR and TR, severe pulmonary hypertension,RVSP 71mmHg. MUGA scan done on 12/18/2016 and showed LVEF 64%. Chest X ray showed mild to moderate cardiomegaly. EKG showed atrial fibrillation. Severe leg edema,chronic venous insufficiency, non compliant with taking Lasix at home. Severe pulmonary hypertension. Aggressively diurese. Bilateral leg less edema with severe pain. PRN pain management. Podiatry on consult. Will repeat echo to evaluate Pulmonary hypertension. Plan: Repeat Echo to evaluate pulmonary hypertension Denies shortness of breath Heart rate controlled Blood pressure controlled Pain on bilateral legs Pain management, PRN Percocet On Pradaxa 150 mg BID, Digoxin 0.25 mg daily,Cardizem 180 mg daily, Lasix 80 mg BID,Zaroxylyn 5 mg daily, Aldactone 25 mg BID K-dur 20 meq daily Continue IV antibiotics as ordered by ID Continue current management Elevate legs Lifestyle modifications Weight reduction Will follow up Plan and treatment discussed with Dr. Rogers
[2018-11-20] MEDS ORDERED: Morphine 2 mg/ml ISec IVP PRN (08:41)
[2018-11-20] MEDS: metOLazone 5 MG TAB PO SCH (09:42)
[2018-11-20] MEDS: diltiaZEM 180 mg/24 Hours CD Cap PO SCH (09:42)
[2018-11-20] MEDS: Vancomycin 1gm in NS 250ml 1 GM/250 ML BAG IVPB SCH (09:43)
[2018-11-20] MEDS: Potassium Chloride 20 mEq ER Tab PO SCH (09:43)
--- NOTE | 2018-11-20 09:48 | CP.PCM.PN ---
Subjective - Date & Time of Evaluation Date of Evaluation: 11/20/18 Time of Evaluation: 09:30 - Subjective Subjective: c/o bilat leg pain, denies chest pain, no SOB Objective - Vital Signs/Intake and Output Vital Signs (last 24 hours): Temp Pulse Resp BP Pulse Ox 97.8 F 96 H 20 135/72 94 L 11/20/18 08:40 11/20/18 08:40 11/20/18 08:40 11/20/18 09:43 11/20/18 08:40 Intake and Output: 11/20/18 11/20/18 06:59 18:59 Intake Total 360 Output Total 1600 Balance -1240 - Medications Medications: Current Medications Alprazolam (Xanax) 1 mg PO TID [facility]; Protocol Last Admin: 11/20/18 09:42 Dose: 1 mg Dabigatran (Pradaxa) 150 mg PO BID [facility]; Protocol Last Admin: 11/20/18 09:42 Dose: 150 mg Digoxin (Lanoxin) 0.25 mg PO 1400 [facility] Last Admin: 11/19/18 14:05 Dose: 0.25 mg Diltiazem HCl (Cardizem Cd) 180 mg PO DAILY [facility] Last Admin: 11/20/18 09:42 Dose: 180 mg Furosemide (Lasix) 80 mg IV BID [facility] Last Admin: 11/20/18 09:43 Dose: 80 mg Cefepime HCl (Maxipime 1gm) 1 gm in 100 mls @ 100 mls/hr IVPB Q8 [facility]; Protocol Stop: 11/26/18 22:01 Last Admin: 11/20/18 05:42 Dose: 100 mls/hr Vancomycin HCl (Vancomycin 1gm) 1 gm in 250 mls @ 167 mls/hr IVPB Q12H [facility]; Protocol Stop: 11/28/18 20:31 Last Admin: 11/20/18 09:43 Dose: 167 mls/hr Insulin Human Regular (Humulin R Low) 0 units SC ACHS [facility]; Protocol Last Admin: 11/20/18 07:33 Dose: Not Given Metolazone (Zaroxolyn) 5 mg PO DAILY [facility] Last Admin: 11/20/18 09:42 Dose: 5 mg Morphine Sulfate (Morphine) 2 mg IVP Q4H PRN PRN Reason: Pain, severe (8-10) Last Admin: 11/20/18 09:02 Dose: 2 mg Multi-Ingredient Ointment (Hydrophor Oint) 0 gm TOP Q6H [facility] Last Admin: 11/20/18 06:12 Dose: Not Given Pantoprazole Sodium (Protonix Ec Tab) 40 mg PO 0600 [facility] Last Admin: 11/20/18 05:42 Dose: 40 mg Potassium Chloride (K-Dur 20 Meq Er Tab) 20 meq PO BRK [facility] Last Admin: 11/20/18 09:43 Dose: 20 meq Potassium Chloride (K-Dur 20 Meq Er Tab) 20 meq PO ONCE ONE Stop: 11/20/18 14:01 Sitagliptin Phosphate (Januvia) 100 mg PO DAILY [facility] Last Admin: 11/20/18 09:42 Dose: 100 mg Spironolactone (Aldactone) 25 mg PO BID [facility] Last Admin: 11/20/18 09:42 Dose: 25 mg - Labs Labs: 11/20/18 07:20 11/20/18 07:20 PT 19.4 SECONDS (9.4-12.5) H 11/13/18 18:19 INR 1.75 11/13/18 18:19 APTT 61.0 Seconds (26.9-38.3) H 11/13/18 18:19 - Respiratory Exam Respiratory Exam: Clear to Ausculation Bilateral, NORMAL BREATHING PATTERN - Cardiovascular Exam Cardiovascular Exam: REGULAR RHYTHM - GI/Abdominal Exam GI & Abdominal Exam: Soft, Normal Bowel Sounds - Extremities Exam Extremities Exam: Pedal Edema - Neurological Exam Neurological Exam: Alert, Awake Assessment and Plan (1) Leg ulcer Status: Chronic (2) Atrial fibrillation Status: Chronic (3) CHF (congestive heart failure) Status: Chronic (4) Cellulitis Status: Acute (5) CHF (congestive heart failure) Status: Chronic (6) COPD (chronic obstructive pulmonary disease) Status: Chronic (7) Diabetes Status: Chronic (8) Obstructive sleep apnea Status: Chronic - Assessment and Plan (Free Text) Plan: continue wound care/IV Abx
--- NOTE | 2018-11-20 10:35 | CP.PCM.PN ---
Subjective - Date & Time of Evaluation Date of Evaluation: 11/20/18 Time of Evaluation: 10:29 - Subjective Subjective: Podiatry progress note for Drs. Kaur/Abdiel 58 y/o M patient seen and evaluated at the bedside this Am with Dr. Meadows for b/l venous stasis ulcerations and left hallux stasis ulceration. Patient was awake and alert at the visit time. Patient denies having pain in his lower extremities. Patient reports feeling significantly better. Patient denies have any acute overnight events. States he keeps his legs elevated when in bed or l sidney down. Patient denies any new complaints and no overnight n/v/f/c. Objective - Vital Signs/Intake and Output Vital Signs (last 24 hours): Temp Pulse Resp BP Pulse Ox 97.8 F 96 H 20 135/72 94 L 11/20/18 08:40 11/20/18 08:40 11/20/18 08:40 11/20/18 09:43 11/20/18 08:40 Intake and Output: 11/20/18 11/20/18 06:59 18:59 Intake Total 360 Output Total 1600 Balance -1240 - Medications Medications: Current Medications Alprazolam (Xanax) 1 mg PO TID [facility]; Protocol Last Admin: 11/20/18 09:42 Dose: 1 mg Dabigatran (Pradaxa) 150 mg PO BID [facility]; Protocol Last Admin: 11/20/18 09:42 Dose: 150 mg Digoxin (Lanoxin) 0.25 mg PO 1400 [facility] Last Admin: 11/19/18 14:05 Dose: 0.25 mg Diltiazem HCl (Cardizem Cd) 180 mg PO DAILY [facility] Last Admin: 11/20/18 09:42 Dose: 180 mg Furosemide (Lasix) 80 mg IV BID [facility] Last Admin: 11/20/18 09:43 Dose: 80 mg Cefepime HCl (Maxipime 1gm) 1 gm in 100 mls @ 100 mls/hr IVPB Q8 [facility]; Protocol Stop: 11/26/18 22:01 Last Admin: 11/20/18 05:42 Dose: 100 mls/hr Vancomycin HCl (Vancomycin 1gm) 1 gm in 250 mls @ 167 mls/hr IVPB Q12H [facility]; Protocol Stop: 11/28/18 20:31 Last Admin: 11/20/18 09:43 Dose: 167 mls/hr Insulin Human Regular (Humulin R Low) 0 units SC ACHS [facility]; Protocol Last Admin: 11/20/18 07:33 Dose: Not Given Metolazone (Zaroxolyn) 5 mg PO DAILY [facility] Last Admin: 11/20/18 09:42 Dose: 5 mg Morphine Sulfate (Morphine) 2 mg IVP Q4H PRN PRN Reason: Pain, severe (8-10) Last Admin: 11/20/18 09:02 Dose: 2 mg Multi-Ingredient Ointment (Hydrophor Oint) 0 gm TOP Q6H [facility] Last Admin: 11/20/18 06:12 Dose: Not Given Oxycodone/Acetaminophen (Percocet 10/325 Mg Tab) 1 tab PO Q4H [facility] Pantoprazole Sodium (Protonix Ec Tab) 40 mg PO 0600 [facility] Last Admin: 11/20/18 05:42 Dose: 40 mg Potassium Chloride (K-Dur 20 Meq Er Tab) 20 meq PO BRK [facility] Last Admin: 11/20/18 09:43 Dose: 20 meq Potassium Chloride (K-Dur 20 Meq Er Tab) 20 meq PO ONCE ONE Stop: 11/20/18 14:01 Sitagliptin Phosphate (Januvia) 100 mg PO DAILY [facility] Last Admin: 11/20/18 09:42 Dose: 100 mg Spironolactone (Aldactone) 25 mg PO BID [facility] Last Admin: 11/20/18 09:42 Dose: 25 mg - Labs Labs: 11/20/18 07:20 11/20/18 07:20 PT 19.4 SECONDS (9.4-12.5) H 11/13/18 18:19 INR 1.75 11/13/18 18:19 APTT 61.0 Seconds (26.9-38.3) H 11/13/18 18:19 - Constitutional Appears: Well, Non-toxic, No Acute Distress - Head Exam Head Exam: ATRAUMATIC, NORMOCEPHALIC - Extremities Exam Additional comments: LE focused exam: Vasc: Non-palpable DP and PT pulses secondary to edema bilaterally, Temperature gradient warm to cool bilaterally. +2 pitting edema bilaterally, improving. Cap refill < 3 sec to all digits Neuro: Gross and protective sensation diminished Derm: Mild erythema with xerosis noted to bilateral lower extremities from tibial tuberosity extending distally to digits, small breaks in the skin noted, weeping significantly improved, no malodor appreciated, no purulence, no fluctuance, no tracking, no tunneling, no undermining, no probe to bone Left: hallux ulceration noted dorsally and small ulceration noted to 2nd digit dorsally, both with 100% granular base, measuring about 3 cm X 4 cm, no probe to bone, no drainage, no tracking, minimal coby wound erythema MSK: Diffuse tenderness upon palpation noted to bilateral LE - Neurological Exam Neurological Exam: Alert, Awake, Oriented x3 - Psychiatric Exam Psychiatric exam: Normal Affect, Normal Mood Assessment and Plan - Assessment and Plan (Free Text) Assessment: 58 y/o M patient seen and evaluated at the bedside for b/l venous stasis ulcerations and left hallux stasis ulceration Plan: Patient seen and evaluated at the bedside with Dr. Meadows Plan discussed with Dr. Meadows Charts, labs and vitals reviewed: Afebrile, absent leukocytosis Wound culture ordered - MRSA and pseudomonas aeruginosa Blood Cultures- no growth after 4 days Cardiology recommendations were appreciated Infectious Disease recommendations were appreciated No Dressing to the RLE Dressing to the Left foot at the ulceration site: flushed with saline, dressing with Silver Alginate, gauze, ABD and Kerlix Continue management per primary care team Ordered physical therapy for patient Podiatry will continue to follow up the patient while in house
--- NOTE | 2018-11-20 13:26 | PN ---
DATE: 11/20/2018 SUBJECTIVE: The patient is seen earlier today in room 369. He is awake and alert. He is concerned about his foot. PHYSICAL EXAMINATION VITAL SIGNS: On exam, temperature is 98, blood pressure is 130/78, respiratory rate of 18 and heart rate of 96. HEENT: Unremarkable. NECK: Supple. LUNGS: Have decreased breath sounds. HEART: Normal S1 and S2. ABDOMEN: Soft. LABORATORY DATA: Reveals a white count of 8.6. Sed rate is 40. Coagulation is noted. Chemistries are reviewed. Toxicology is noted. Patient's vanco trough is 13, it is reviewed and the patient is currently on vanco and cefepime. Microbiology reveals Pseudomonas and MRSA from the foot cultures and podiatry note is reviewed. ASSESSMENT AND PLAN: This is a 58-year-old male seen earlier today in room 369 bed 2 with methicillin-resistant Staphylococcus aureus and Pseudomonas to left fifth toe cellulitis, must rule out underlying osteomyelitis with acute diastolic congestive heart failure on chronic congestive heart failure with currently on vanco and cefepime and we will discuss with Podiatry. We will follow with you. Erik Alexander MD
[2018-11-20] MEDS ORDERED: Potassium Chloride 20 mEq ER Tab PO ONE (14:00)
[2018-11-20] MEDS: Digoxin 250 mcg (0.25 mg) Tab PO SCH (14:33)
[2018-11-20] MEDS ORDERED: Potassium Chloride 20 mEq ER Tab PO STA (17:03)
--- NOTE | 2018-11-20 19:47 | CARD ---
APPROVED REPORT Date of service: 11/20/2018 EXAM: Two-dimensional and M-mode echocardiogram with Doppler and color Doppler. INDICATION Pulmonary Hypertention 2D DIMENSIONS Left Atrium (2D)4.9 (1.6-4.0cm)IVSd1.1 (0.7-1.1cm) LVDd5.5 (3.9-5.9cm)PWd1.2 (0.7-1.1cm) LVDs4.2 (2.5-4.0cm)FS (%) 23.7 % LVEF (%)46.8 (>50%) M-Mode DIMENSIONS Aortic Root3.30 (2.2-3.7cm)Aortic Cusp Exc.2.00 (1.5-2.0cm) Aortic Valve AoV Peak Xadntami784.0cm/Terrance Peak GR.10mmHg Mitral Valve E/A ratio0.0 TDI E/Lateral E'0.0E/Medial E'0.0 Pulmonary Valve PV Peak Ufuqqnet69.5cm/sPV Peak Grad.2mmHg Tricuspid Valve TR Peak [id number]/sRAP [id number] Peak Gr.41mmHg [id number] LEFT VENTRICLE The left ventricle is normal size. There is borderline concentric left ventricular hypertrophy. The systolic function is mildly impaired.EF-45-50% There is a flattened septum consistent with right ventricle volume and pressure overload. a fib No left ventricle thrombus noted on this study. There is no ventricular septal defect visualized. There is no left ventricular aneurysm. There is no mass noted in the left ventricle. RIGHT VENTRICLE The right ventricle is severely dilated. The right ventricle is mildly hypertrophied. Systolic function of RV is severely reduced. ATRIA The left atrium is moderately dilated. The right atrium is moderately dilated. The interatrial septum is intact with no evidence for an atrial septal defect. AORTIC VALVE The aortic valve is thickened but opens well. No aortic regurgitation is present. There is no aortic valvular stenosis. There is no aortic valvular vegetation. MITRAL VALVE The mitral valve is thickened but opens well. Mitral regurgitation is mild. There is no mitral valve stenosis. There is no evidence of mitral valve prolapse. TRICUSPID VALVE The anterior leaflet is thickened. There is moderate tricuspid regurgitation.RVSP-51 mmof Hg. There is mild to moderate pulmonary hypertension. There is no tricuspid valve stenosis. There is no tricuspid valve prolapse or vegetation. PULMONIC VALVE The pulmonary valve is normal in structure. There is trace pulmonic valvular regurgitation. There is no pulmonic valvular stenosis. GREAT VESSELS The aortic root is normal in size. The ascending aorta is normal in size. The pulmonary artery is normal. The IVC is dilated. PERICARDIAL EFFUSION There is no pleural effusion. There is no pericardial effusion. <Conclusion> The left ventricle is normal size. There is borderline concentric left ventricular hypertrophy. The systolic function is mildly impaired.EF-45-50% The right ventricle is severely dilated. Systolic function of RV is severely reduced. Mitral regurgitation is mild. There is moderate tricuspid regurgitation.RVSP-51 mmof Hg. There is mild to moderate pulmonary hypertension. The IVC is dilated. There is no pericardial effusion.
[2018-11-21] MEDS: Insulin Reg-LOW-Coverage SC SCH ×5 (00:29→22:20)
[2018-11-21] MEDS: Petrolatum-Mineral Oil Oint (100gm) TOP SCH ×3 (00:30→19:10)
[2018-11-21] MEDS: Vancomycin 1gm in NS 250ml 1 GM/250 ML BAG IVPB SCH ×3 (01:58→20:15)
[2018-11-21] MEDS: Oxycodone/Acetaminophen 10/325 mg Tab PO SCH ×6 (01:59→22:02)
--- NOTE | 2018-11-21 03:19 | CP.PCM.PCO ---
<Silviano Castro - Last Filed: 11/21/18 03:18> Addendum Addendum: 11/21/18 03:18 Night float resident note Night resident contacted by nurse for 2-3 second pause noted on surveillance monitor. Patient is asymptomatic, no chest pain, palpitations, dizziness. 12- lead EKG obtained and shows atrial fibrillation without ST changes, unchanged from prior EKG. <Treva Anne - Last Filed: 11/21/18 19:09> Attending/Attestation - Attestation I have personally seen and examined this patient.: No I have fully participated in the care of the patient.: No I have reviewed all pertinent clinical information: No
[2018-11-21] MEDS: Pantoprazole 40 mg EC Tab PO SCH (05:05)
[2018-11-21] MEDS: Cefepime 1gm in NS 100ml 1 GM/100 ML BAG IVPB SCH ×3 (05:05→22:22)
--- NOTE | 2018-11-21 07:59 | CP.PCM.PN ---
Subjective - Date & Time of Evaluation Date of Evaluation: 11/21/18 Time of Evaluation: 06:45 - Subjective Subjective: Awake, sitting side of bed, no distress Reason for consultation and follow up:Cardiac follow up, history of chronic atrial fibrillation, hypertension, COPD, hyperlipidemia, admitted for leg cellulitis Seen and examined by me and Dr. Vargas Objective - Vital Signs/Intake and Output Vital Signs (last 24 hours): Temp Pulse Resp BP Pulse Ox 97.8 F 70 16 128/68 95 11/21/18 02:20 11/21/18 06:00 11/21/18 02:20 11/21/18 02:20 11/21/18 02:20 Intake and Output: 11/21/18 11/21/18 06:59 18:59 Intake Total 2160 Output Total 5350 Balance -3190 - Medications Medications: Current Medications Alprazolam (Xanax) 1 mg PO TID [facility]; Protocol Last Admin: 11/20/18 17:53 Dose: 1 mg Dabigatran (Pradaxa) 150 mg PO BID [facility]; Protocol Last Admin: 11/20/18 17:53 Dose: 150 mg Digoxin (Lanoxin) 0.25 mg PO 1400 [facility] Last Admin: 11/20/18 14:33 Dose: 0.25 mg Diltiazem HCl (Cardizem Cd) 180 mg PO DAILY [facility] Last Admin: 11/20/18 09:42 Dose: 180 mg Furosemide (Lasix) 80 mg IV BID [facility] Last Admin: 11/20/18 17:53 Dose: 80 mg Cefepime HCl (Maxipime 1gm) 1 gm in 100 mls @ 100 mls/hr IVPB Q8 [facility]; Protocol Stop: 11/26/18 22:01 Last Admin: 11/21/18 05:05 Dose: 100 mls/hr Vancomycin HCl (Vancomycin 1gm) 1 gm in 250 mls @ 167 mls/hr IVPB Q12H [facility]; Protocol Stop: 11/28/18 20:31 Last Admin: 11/21/18 01:58 Dose: 167 mls/hr Insulin Human Regular (Humulin R Low) 0 units SC ACHS [facility]; Protocol Last Admin: 11/21/18 00:29 Dose: Not Given Metolazone (Zaroxolyn) 5 mg PO DAILY [facility] Last Admin: 11/20/18 09:42 Dose: 5 mg Morphine Sulfate (Morphine) 2 mg IVP Q4H PRN PRN Reason: Pain, severe (8-10) Last Admin: 11/20/18 09:02 Dose: 2 mg Multi-Ingredient Ointment (Hydrophor Oint) 0 gm TOP Q6H [facility] Last Admin: 11/21/18 00:30 Dose: Not Given Oxycodone/Acetaminophen (Percocet 10/325 Mg Tab) 1 tab PO Q4H [facility] Last Admin: 11/21/18 06:26 Dose: 1 tab Pantoprazole Sodium (Protonix Ec Tab) 40 mg PO 0600 [facility] Last Admin: 11/21/18 05:05 Dose: 40 mg Potassium Chloride (K-Dur 20 Meq Er Tab) 20 meq PO BRK [facility] Last Admin: 11/20/18 09:43 Dose: 20 meq Sitagliptin Phosphate (Januvia) 100 mg PO DAILY [facility] Last Admin: 11/20/18 09:42 Dose: 100 mg Spironolactone (Aldactone) 25 mg PO BID [facility] Last Admin: 11/20/18 17:52 Dose: 25 mg - Labs Labs: 11/20/18 07:20 11/20/18 07:20 PT 19.4 SECONDS (9.4-12.5) H 11/13/18 18:19 INR 1.75 11/13/18 18:19 APTT 61.0 Seconds (26.9-38.3) H 11/13/18 18:19 - Constitutional Appears: Non-toxic, No Acute Distress - Head Exam Head Exam: NORMAL INSPECTION, NORMOCEPHALIC - Eye Exam Eye Exam: Normal appearance Pupil Exam: NORMAL ACCOMODATION - ENT Exam ENT Exam: Mucous Membranes Moist, Normal Exam - Neck Exam Neck Exam: Full ROM, Normal Inspection - Respiratory Exam Respiratory Exam: Decreased Breath Sounds, Clear to Ausculation Bilateral, NORMAL BREATHING PATTERN - Cardiovascular Exam Cardiovascular Exam: Irregular Rhythm, +S1, +S2 Additional comments: atrial fibrillation 70's - GI/Abdominal Exam GI & Abdominal Exam: Soft, Normal Bowel Sounds - Extremities Exam Extremities Exam: Full ROM Additional comments: 3-4+ edema, dry,flaky - Neurological Exam Neurological Exam: Alert, Awake, Oriented x3 - Psychiatric Exam Psychiatric exam: Normal Affect, Normal Mood - Skin Skin Exam: Dry, Normal Color, Warm Assessment and Plan - Assessment and Plan (Free Text) Assessment: A 58 year old male who came in to the ER due to leg cellulitis and worsening leg edema. He was on Lasix but stopped it on his own as he claimed that Lasix made him feel shaky. History of congestive heart failure, ,hypertension, hyperlipidemia, chronic atrial fibrillation, chronic leg ulcers, chronic venous insuficiency,tremors, COPD, morbidly obese,sleep apnea, diabetes, anxiety, renal insufficiency at one point requiring hemodialysis (11/2016). Cardiac cath on 05/12/2014 showed non-obstructive coronary artery disease. Echo done on 04/23/2018 showed LVEF within normal limits, trace MR and TR, severe pulmonary hypertension,RVSP 71mmHg. MUGA scan done on 12/18/2016 and showed LVEF 64%. Chest X ray showed mild to moderate cardiomegaly. EKG showed atrial fibrillation. Severe leg edema,chronic venous insufficiency, non compliant with taking Lasix at home. Podiatry on consult. Repeat echo showed mild to moderate pulmonary hypertension, improved compared to previous Echo. LVEF 45-50%, right ventricle is severely dilated, systolic function of RV is severely reduced, mild MR, moderate tricuspid regurgitation RVSP 51 mmHg. Leg edema improved. Aggresive diurese. Plan: Clinically improved Denies shortness of breath Heart rate controlled Blood pressure controlled Leg edema improved On Pradaxa 150 mg BID, Digoxin 0.25 mg daily,Cardizem 180 mg daily, Lasix 80 mg BID,Zaroxylyn 5 mg daily, Aldactone 25 mg BID [facility] 20 meq daily Continue IV antibiotics as ordered by ID Continue current management Elevate legs Lifestyle modifications Weight reduction Will follow up Plan and treatment discussed with Dr. Vargas
[2018-11-21] MEDS: Potassium Chloride 20 mEq ER Tab PO SCH (08:33)
--- NOTE | 2018-11-21 09:21 | CARD ---
APPROVED REPORT Date of service: 11/21/2018 EKG Measurement Heart [id number] <Conclusion> Atrial fibrillation Abnormal ECG
[2018-11-21] MEDS: metOLazone 5 MG TAB PO SCH (09:49)
--- NOTE | 2018-11-21 10:14 | CP.PCM.PN ---
<Cb Clifford - Last Filed: 11/21/18 10:06> Subjective - Date & Time of Evaluation Date of Evaluation: 11/21/18 Time of Evaluation: 10:06 - Subjective Subjective: Podiatry progress note for Drs. Kaur/Abdiel 58 y/o M patient seen and evaluated at the bedside this Am with Dr. Meadows for b/l venous stasis ulcerations and left hallux stasis ulceration. Patient was awake and alert at the visit time. Patient denies having pain in his lower extremities. Patient reports feeling significantly better. Patient denies have any acute overnight events. States he keeps his legs elevated when in bed or lying down. Patient denies any new complaints and no overnight n/v/f/c. Objective - Vital Signs/Intake and Output Vital Signs (last 24 hours): Temp Pulse Resp BP Pulse Ox 97.8 F 70 16 128/80 95 11/21/18 02:20 11/21/18 06:00 11/21/18 02:20 11/21/18 09:50 11/21/18 02:20 Intake and Output: 11/21/18 11/21/18 06:59 18:59 Intake Total 2160 Output Total 5350 Balance -3190 - Medications Medications: Current Medications Alprazolam (Xanax) 1 mg PO TID [facility]; Protocol Last Admin: 11/21/18 09:49 Dose: 1 mg Dabigatran (Pradaxa) 150 mg PO BID [facility]; Protocol Last Admin: 11/21/18 09:49 Dose: 150 mg Digoxin (Lanoxin) 0.25 mg PO 1400 [facility] Last Admin: 11/20/18 14:33 Dose: 0.25 mg Diltiazem HCl (Cardizem Cd) 180 mg PO DAILY [facility] Last Admin: 11/20/18 09:42 Dose: 180 mg Furosemide (Lasix) 80 mg IV BID [facility] Last Admin: 11/21/18 09:50 Dose: 80 mg Cefepime HCl (Maxipime 1gm) 1 gm in 100 mls @ 100 mls/hr IVPB Q8 [facility]; Protocol Stop: 11/26/18 22:01 Last Admin: 11/21/18 05:05 Dose: 100 mls/hr Vancomycin HCl (Vancomycin 1gm) 1 gm in 250 mls @ 167 mls/hr IVPB Q12H [facility]; Protocol Stop: 11/28/18 20:31 Last Admin: 11/21/18 08:34 Dose: 167 mls/hr Insulin Human Regular (Humulin R Low) 0 units SC ACHS [facility]; Protocol Last Admin: 11/21/18 08:34 Dose: Not Given Metolazone (Zaroxolyn) 5 mg PO DAILY [facility] Last Admin: 11/21/18 09:49 Dose: 5 mg Morphine Sulfate (Morphine) 2 mg IVP Q4H PRN PRN Reason: Pain, severe (8-10) Last Admin: 11/20/18 09:02 Dose: 2 mg Multi-Ingredient Ointment (Hydrophor Oint) 0 gm TOP Q6H [facility] Last Admin: 11/21/18 00:30 Dose: Not Given Oxycodone/Acetaminophen (Percocet 10/325 Mg Tab) 1 tab PO Q4H [facility] Last Admin: 11/21/18 09:49 Dose: 1 tab Pantoprazole Sodium (Protonix Ec Tab) 40 mg PO 0600 [facility] Last Admin: 11/21/18 05:05 Dose: 40 mg Potassium Chloride (K-Dur 20 Meq Er Tab) 20 meq PO BRK [facility] Last Admin: 11/21/18 08:33 Dose: 20 meq Sitagliptin Phosphate (Januvia) 100 mg PO DAILY [facility] Last Admin: 11/21/18 09:48 Dose: 100 mg Spironolactone (Aldactone) 25 mg PO BID [facility] Last Admin: 11/21/18 09:49 Dose: 25 mg - Labs Labs: 11/20/18 07:20 11/20/18 07:20 PT 19.4 SECONDS (9.4-12.5) H 11/13/18 18:19 INR 1.75 11/13/18 18:19 APTT 61.0 Seconds (26.9-38.3) H 11/13/18 18:19 - Constitutional Appears: Well, Non-toxic, No Acute Distress - Head Exam Head Exam: ATRAUMATIC, NORMAL INSPECTION, NORMOCEPHALIC - Extremities Exam Additional comments: LE focused exam: Vasc: Non-palpable DP and PT pulses secondary to edema bilaterally, Temperature gradient warm to cool bilaterally. +2 pitting edema bilaterally, improving. Cap refill < 3 sec to all digits Neuro: Gross and protective sensation diminished Derm: Mild erythema with xerosis noted to bilateral lower extremities from tibial tuberosity extending distally to digits, small breaks in the skin noted, weeping significantly improved, no malodor appreciated, no purulence, no fluctuance, no tracking, no tunneling, no undermining, no probe to bone Left: hallux ulceration noted dorsally and small ulceration noted to 2nd digit dorsally, both with 100% granular base, measuring about 3 cm X 4 cm, no probe to bone, no drainage, no tracking, minimal coby wound erythema MSK: Diffuse tenderness upon palpation noted to bilateral LE - Neurological Exam Neurological Exam: Alert, Awake, Oriented x3 - Psychiatric Exam Psychiatric exam: Normal Affect, Normal Mood Assessment and Plan - Assessment and Plan (Free Text) Assessment: 58 y/o M patient seen and evaluated at the bedside for b/l venous stasis ulcerations and left hallux stasis ulceration Plan: Patient seen and evaluated at the bedside with Dr. Kaur Plan discussed with Dr. Kaur Charts, labs and vitals reviewed: Afebrile, absent leukocytosis Wound culture ordered - MRSA and pseudomonas aeruginosa Blood Cultures- no growth after 4 days Cardiology recommendations were appreciated Infectious Disease recommendations were appreciated No Dressing to the RLE Dressing to the Left foot at the ulceration site: flushed with saline, dressing with Silver Alginate, gauze, ABD and Kerlix Continue management per primary care team Ordered physical therapy for patient Podiatry will continue to follow up the patient while in house <Andres Kaur - Last Filed: 11/22/18 07:30> Objective - Vital Signs/Intake and Output Vital Signs (last 24 hours): Temp Pulse Resp BP Pulse Ox 97.3 F L 94 H 18 111/66 99 11/22/18 00:00 11/22/18 06:00 11/22/18 00:00 11/22/18 00:00 11/22/18 00:00 Intake and Output: 11/22/18 11/22/18 06:59 18:59 Intake Total 1620 Output Total 6700 Balance -5080 - Medications Medications: Current Medications Alprazolam (Xanax) 1 mg PO TID [facility]; Protocol Last Admin: 11/21/18 17:39 Dose: 1 mg Dabigatran (Pradaxa) 150 mg PO BID [facility]; Protocol Last Admin: 11/21/18 17:39 Dose: 150 mg Digoxin (Lanoxin) 0.25 mg PO 1400 [facility] Last Admin: 11/21/18 13:54 Dose: 0.25 mg Diltiazem HCl (Cardizem Cd) 180 mg PO DAILY [facility] Last Admin: 11/21/18 13:53 Dose: 180 mg Furosemide (Lasix) 80 mg IV BID [facility] Last Admin: 11/21/18 17:38 Dose: 80 mg Cefepime HCl (Maxipime 1gm) 1 gm in 100 mls @ 100 mls/hr IVPB Q8 [facility]; Protocol Stop: 11/26/18 22:01 Last Admin: 11/22/18 05:23 Dose: 100 mls/hr Vancomycin HCl (Vancomycin 1gm) 1 gm in 250 mls @ 167 mls/hr IVPB Q12H [facility]; Protocol Stop: 11/28/18 20:31 Last Admin: 11/21/18 20:15 Dose: 167 mls/hr Insulin Human Regular (Humulin R Low) 0 units SC ACHS [facility]; Protocol Last Admin: 11/21/18 22:20 Dose: Not Given Metolazone (Zaroxolyn) 5 mg PO DAILY [facility] Last Admin: 11/21/18 09:49 Dose: 5 mg Morphine Sulfate (Morphine) 2 mg IVP Q4H PRN PRN Reason: Pain, severe (8-10) Last Admin: 11/20/18 09:02 Dose: 2 mg Multi-Ingredient Ointment (Hydrophor Oint) 0 gm TOP Q6H [facility] Last Admin: 11/22/18 06:35 Dose: Not Given Oxycodone/Acetaminophen (Percocet 10/325 Mg Tab) 1 tab PO Q4H [facility] Last Admin: 11/22/18 04:19 Dose: 1 tab Pantoprazole Sodium (Protonix Ec Tab) 40 mg PO 0600 [facility] Last Admin: 11/22/18 05:23 Dose: 40 mg Potassium Chloride (K-Dur 20 Meq Er Tab) 20 meq PO BRK [facility] Last Admin: 11/21/18 08:33 Dose: 20 meq Sitagliptin Phosphate (Januvia) 100 mg PO DAILY [facility] Last Admin: 11/21/18 09:48 Dose: 100 mg Spironolactone (Aldactone) 25 mg PO BID [facility] Last Admin: 11/21/18 17:39 Dose: 25 mg - Labs Labs: 11/22/18 05:30 11/22/18 05:30 PT 19.4 SECONDS (9.4-12.5) H 11/13/18 18:19 INR 1.75 11/13/18 18:19 APTT 61.0 Seconds (26.9-38.3) H 11/13/18 18:19 Attending/Attestation - Attestation I have personally seen and examined this patient.: Yes I have fully participated in the care of the patient.: Yes I have reviewed all pertinent clinical information, including history, physical exam and plan: Yes
--- NOTE | 2018-11-21 11:23 | CP.PCM.PN ---
Subjective - Date & Time of Evaluation Date of Evaluation: 11/21/18 Time of Evaluation: 11:00 - Subjective Subjective: OOB in chair, NAD Objective - Vital Signs/Intake and Output Vital Signs (last 24 hours): Temp Pulse Resp BP Pulse Ox 97.8 F 70 16 128/80 95 11/21/18 02:20 11/21/18 06:00 11/21/18 02:20 11/21/18 09:50 11/21/18 02:20 Intake and Output: 11/21/18 11/21/18 06:59 18:59 Intake Total 2160 Output Total 5350 Balance -3190 - Medications Medications: Current Medications Alprazolam (Xanax) 1 mg PO TID [facility]; Protocol Last Admin: 11/21/18 09:49 Dose: 1 mg Dabigatran (Pradaxa) 150 mg PO BID [facility]; Protocol Last Admin: 11/21/18 09:49 Dose: 150 mg Digoxin (Lanoxin) 0.25 mg PO 1400 [facility] Last Admin: 11/20/18 14:33 Dose: 0.25 mg Diltiazem HCl (Cardizem Cd) 180 mg PO DAILY [facility] Last Admin: 11/20/18 09:42 Dose: 180 mg Furosemide (Lasix) 80 mg IV BID [facility] Last Admin: 11/21/18 09:50 Dose: 80 mg Cefepime HCl (Maxipime 1gm) 1 gm in 100 mls @ 100 mls/hr IVPB Q8 [facility]; Protocol Stop: 11/26/18 22:01 Last Admin: 11/21/18 05:05 Dose: 100 mls/hr Vancomycin HCl (Vancomycin 1gm) 1 gm in 250 mls @ 167 mls/hr IVPB Q12H [facility]; Protocol Stop: 11/28/18 20:31 Last Admin: 11/21/18 08:34 Dose: 167 mls/hr Insulin Human Regular (Humulin R Low) 0 units SC ACHS [facility]; Protocol Last Admin: 11/21/18 08:34 Dose: Not Given Metolazone (Zaroxolyn) 5 mg PO DAILY [facility] Last Admin: 11/21/18 09:49 Dose: 5 mg Morphine Sulfate (Morphine) 2 mg IVP Q4H PRN PRN Reason: Pain, severe (8-10) Last Admin: 11/20/18 09:02 Dose: 2 mg Multi-Ingredient Ointment (Hydrophor Oint) 0 gm TOP Q6H [facility] Last Admin: 11/21/18 00:30 Dose: Not Given Oxycodone/Acetaminophen (Percocet 10/325 Mg Tab) 1 tab PO Q4H [facility] Last Admin: 11/21/18 09:49 Dose: 1 tab Pantoprazole Sodium (Protonix Ec Tab) 40 mg PO 0600 [facility] Last Admin: 11/21/18 05:05 Dose: 40 mg Potassium Chloride (K-Dur 20 Meq Er Tab) 20 meq PO BRK [facility] Last Admin: 11/21/18 08:33 Dose: 20 meq Sitagliptin Phosphate (Januvia) 100 mg PO DAILY [facility] Last Admin: 11/21/18 09:48 Dose: 100 mg Spironolactone (Aldactone) 25 mg PO BID [facility] Last Admin: 11/21/18 09:49 Dose: 25 mg - Labs Labs: 11/20/18 07:20 11/20/18 07:20 PT 19.4 SECONDS (9.4-12.5) H 11/13/18 18:19 INR 1.75 11/13/18 18:19 APTT 61.0 Seconds (26.9-38.3) H 11/13/18 18:19 - Respiratory Exam Respiratory Exam: Clear to Ausculation Bilateral, NORMAL BREATHING PATTERN - Cardiovascular Exam Cardiovascular Exam: REGULAR RHYTHM - GI/Abdominal Exam GI & Abdominal Exam: Soft, Normal Bowel Sounds - Extremities Exam Extremities Exam: Pedal Edema - Neurological Exam Neurological Exam: Alert, Awake Assessment and Plan (1) Leg ulcer Status: Chronic (2) Atrial fibrillation Status: Chronic (3) CHF (congestive heart failure) Status: Chronic (4) Cellulitis Status: Acute (5) CHF (congestive heart failure) Status: Chronic (6) COPD (chronic obstructive pulmonary disease) Status: Chronic (7) Diabetes Status: Chronic (8) Obstructive sleep apnea Status: Chronic - Assessment and Plan (Free Text) Plan: continue wound care/IV Abx/cardio follow-up
[2018-11-21] MEDS: diltiaZEM 180 mg/24 Hours CD Cap PO SCH (13:53)
[2018-11-21] MEDS: Digoxin 250 mcg (0.25 mg) Tab PO SCH (13:54)
--- NOTE | 2018-11-21 23:52 | PN ---
DATE: 11/21/2018 SUBJECTIVE: The patient is seen earlier today in bed, room 369. No fevers. No chills. PHYSICAL EXAMINATION VITAL SIGNS: Temperature is 97, blood pressure is 120/70, respiratory rate of 16. HEENT: Unremarkable. NECK: Supple. LUNGS: Decreased breath sounds. HEART: Normal S1 and S2. ABDOMEN: Soft. LABORATORY DATA: Reveals a white count of 8.6. Sed rate is 40. Chemistries are noted. The patient's creatinine is 1.0 and review of orders are noted. ASSESSMENT AND PLAN: A 58-year-old male with methicillin-resistant Staphylococcus aureus and Pseudomonas to left toe cellulitis, must rule out underlying osteomyelitis and the patient with acute diastolic congestive heart failure on chronic congestive heart failure with currently on vancomycin and cefepime. Awaited for MRI, result rule out underlying osteomyelitis. The patient had vancomycin trough is 13.9 on . We will follow with you. Erik Alexander MD
[2018-11-22] MEDS: Oxycodone/Acetaminophen 10/325 mg Tab PO SCH ×6 (01:45→21:46)
[2018-11-22] MEDS: Cefepime 1gm in NS 100ml 1 GM/100 ML BAG IVPB SCH ×3 (05:23→21:46)
[2018-11-22] MEDS: Pantoprazole 40 mg EC Tab PO SCH (05:23)
[2018-11-22 05:49] LABS: BASO # 0.05 K/mm3 (0.0-2.0); BASO % 0.6 % (0.0-3.0); EOS # 0.4 (0.0-0.7); EOS % 4.5 % (1.5-5.0); HEMOGLOBIN 10.5 g/dL (14.0-18.0); LYMPH # 0.7 (1.2-3.4); LYMPH % 8.9 % (22.0-35.0); MEAN CORPUSCULAR HEMOGLOBIN 27.9 pg (25.0-35.0); MEAN CORPUSCULAR HGB CONC 30.3 g/dl (31.0-37.0); MEAN PLATELET VOLUME 9.1 fl (7.0-11.0); MONO # 0.8 (0.1-0.6); MONO % 9.4 % (1.0-6.0); RBC 3.77 10^6/uL (3.5-6.1); RED CELL DISTRIBUTION WIDTH 18.1 % (11.5-14.5); WHITE BLOOD COUNT 8.2 10^3/uL (4.5-11.0)
[2018-11-22 06:02] LABS: BLOOD UREA NITROGEN 25 mg/dL (7-21); CALCIUM 9.1 mg/dL (8.4-10.5); GFR NON-AFRICAN AMERICAN > 60
[2018-11-22] MEDS: Petrolatum-Mineral Oil Oint (100gm) TOP SCH ×3 (06:35→18:54)
[2018-11-22] MEDS: Potassium Chloride 20 mEq ER Tab PO SCH (08:19)
--- NOTE | 2018-11-22 08:50 | CP.PCM.PN ---
Subjective - Date & Time of Evaluation Date of Evaluation: 11/22/18 Time of Evaluation: 06:55 - Subjective Subjective: Awake, sitting side of bed, no distress Reason for consultation and follow up:Cardiac follow up, history of chronic atrial fibrillation, hypertension, COPD, hyperlipidemia, admitted for leg cellulitis Seen and examined by me and Dr. Rogers Objective - Vital Signs/Intake and Output Vital Signs (last 24 hours): Temp Pulse Resp BP Pulse Ox 97.3 F L 94 H 18 111/66 99 11/22/18 00:00 11/22/18 06:00 11/22/18 00:00 11/22/18 00:00 11/22/18 00:00 Intake and Output: 11/22/18 11/22/18 06:59 18:59 Intake Total 1620 Output Total 6700 Balance -5080 - Medications Medications: Current Medications Alprazolam (Xanax) 1 mg PO TID [facility]; Protocol Last Admin: 11/21/18 17:39 Dose: 1 mg Dabigatran (Pradaxa) 150 mg PO BID [facility]; Protocol Last Admin: 11/21/18 17:39 Dose: 150 mg Digoxin (Lanoxin) 0.25 mg PO 1400 [facility] Last Admin: 11/21/18 13:54 Dose: 0.25 mg Diltiazem HCl (Cardizem Cd) 180 mg PO DAILY [facility] Last Admin: 11/21/18 13:53 Dose: 180 mg Furosemide (Lasix) 80 mg IV BID [facility] Last Admin: 11/21/18 17:38 Dose: 80 mg Cefepime HCl (Maxipime 1gm) 1 gm in 100 mls @ 100 mls/hr IVPB Q8 [facility]; Protocol Stop: 11/26/18 22:01 Last Admin: 11/22/18 05:23 Dose: 100 mls/hr Vancomycin HCl (Vancomycin 1gm) 1 gm in 250 mls @ 167 mls/hr IVPB Q12H [facility]; Protocol Stop: 11/28/18 20:31 Last Admin: 11/21/18 20:15 Dose: 167 mls/hr Insulin Human Regular (Humulin R Low) 0 units SC ACHS [facility]; Protocol Last Admin: 11/21/18 22:20 Dose: Not Given Metolazone (Zaroxolyn) 5 mg PO DAILY [facility] Last Admin: 11/21/18 09:49 Dose: 5 mg Morphine Sulfate (Morphine) 2 mg IVP Q4H PRN PRN Reason: Pain, severe (8-10) Last Admin: 11/20/18 09:02 Dose: 2 mg Multi-Ingredient Ointment (Hydrophor Oint) 0 gm TOP Q6H [facility] Last Admin: 11/22/18 06:35 Dose: Not Given Oxycodone/Acetaminophen (Percocet 10/325 Mg Tab) 1 tab PO Q4H [facility] Last Admin: 11/22/18 04:19 Dose: 1 tab Pantoprazole Sodium (Protonix Ec Tab) 40 mg PO 0600 [facility] Last Admin: 11/22/18 05:23 Dose: 40 mg Potassium Chloride (K-Dur 20 Meq Er Tab) 20 meq PO BRK [facility] Last Admin: 11/21/18 08:33 Dose: 20 meq Sitagliptin Phosphate (Januvia) 100 mg PO DAILY [facility] Last Admin: 11/21/18 09:48 Dose: 100 mg Spironolactone (Aldactone) 25 mg PO BID [facility] Last Admin: 11/21/18 17:39 Dose: 25 mg - Labs Labs: 11/22/18 05:30 11/22/18 05:30 PT 19.4 SECONDS (9.4-12.5) H 11/13/18 18:19 INR 1.75 11/13/18 18:19 APTT 61.0 Seconds (26.9-38.3) H 11/13/18 18:19 - Constitutional Appears: Non-toxic, No Acute Distress - Head Exam Head Exam: NORMAL INSPECTION, NORMOCEPHALIC - Eye Exam Eye Exam: Normal appearance Pupil Exam: NORMAL ACCOMODATION - ENT Exam ENT Exam: Mucous Membranes Moist, Normal Exam - Neck Exam Neck Exam: Full ROM, Normal Inspection - Respiratory Exam Respiratory Exam: Decreased Breath Sounds, Clear to Ausculation Bilateral, NORMAL BREATHING PATTERN - Cardiovascular Exam Cardiovascular Exam: Irregular Rhythm, +S1, +S2 Additional comments: Telemetry Atrial fibrillation 80-90's - GI/Abdominal Exam GI & Abdominal Exam: Soft, Normal Bowel Sounds - Extremities Exam Additional comments: bilateral leg cellilitis, left leg with swith dressing, legs flaky Assessment and Plan - Assessment and Plan (Free Text) Assessment: A 58 year old male who came in to the ER due to leg cellulitis and worsening leg edema. He was on Lasix but stopped it on his own as he claimed that Lasix made him feel shaky. History of congestive heart failure, ,hypertension, hyperlipidemia, chronic atrial fibrillation, chronic leg ulcers, chronic venous insuficiency,tremors, COPD, morbidly obese,sleep apnea, diabetes, anxiety, renal insufficiency at one point requiring hemodialysis (11/2016). Cardiac cath on 05/12/2014 showed non-obstructive coronary artery disease. Echo done on 04/23/2018 showed LVEF within normal limits, trace MR and TR, severe pulmonary hypertension,RVSP 71mmHg. MUGA scan done on 12/18/2016 and showed LVEF 64%. Chest X ray showed mild to moderate cardiomegaly. EKG showed atrial fibrillation. Severe leg edema,chronic venous insufficiency, non compliant with taking Lasix at home. Podiatry on consult. Repeat echo showed mild to moderate pulmonary hypertension, improved compared to previous Echo. LVEF 45-50%, right ventricle is severely dilated, systolic function of RV is severely reduced, mild MR, moderate tricuspid regurgitation RVSP 51 mmHg. Leg edema improved. Aggresive diurese. Wound left leg culture positive for MRSA, pseudomonas aeroginosa. On IV antibiotics per ID. Cardiac status stable. Denies shortness of breath. Plan: Denies shortness of breath Heart rate controlled, atrial fibrillation Blood pressure controlled Leg edema improved, On Pradaxa 150 mg BID, Digoxin 0.25 mg daily,Cardizem 180 mg daily, Lasix 80 mg BID,Zaroxylyn 5 mg daily, Aldactone 25 mg BID, K-dur 20 meq daily Continue IV antibiotics as ordered by ID (left leg culture positive for MRSA, pseudomonas aeroginosa. Continue current management Elevate legs Lifestyle modifications Weight reduction Will follow up Plan and treatment discussed with Dr. Rogers
[2018-11-22] MEDS: Insulin Reg-LOW-Coverage SC SCH ×4 (09:00→21:46)
--- NOTE | 2018-11-22 09:13 | CP.PCM.PN ---
<Traci Palomo - Last Filed: 11/22/18 09:10> Subjective - Date & Time of Evaluation Date of Evaluation: 11/22/18 Time of Evaluation: 09:10 - Subjective Subjective: Podiatry progress note for Dr. Kaur 58 year old male patient seen and examined at bedside this morning with Dr. Kaur. Patient resting comfortably and in NAD. Patient reports elevating his legs as instructed, however he continues to notice drainage from his L great toe area. He reports mild pain, however well controlled with medication. Denies nausea/vomiting/fever/shortness of breath. Objective - Vital Signs/Intake and Output Vital Signs (last 24 hours): Temp Pulse Resp BP Pulse Ox 97.3 F L 94 H 18 111/66 99 11/22/18 00:00 11/22/18 06:00 11/22/18 00:00 11/22/18 00:00 11/22/18 00:00 Intake and Output: 11/22/18 11/22/18 06:59 18:59 Intake Total 1620 Output Total 6700 Balance -5080 - Medications Medications: Current Medications Alprazolam (Xanax) 1 mg PO TID [facility]; Protocol Last Admin: 11/21/18 17:39 Dose: 1 mg Dabigatran (Pradaxa) 150 mg PO BID [facility]; Protocol Last Admin: 11/21/18 17:39 Dose: 150 mg Digoxin (Lanoxin) 0.25 mg PO 1400 [facility] Last Admin: 11/21/18 13:54 Dose: 0.25 mg Diltiazem HCl (Cardizem Cd) 180 mg PO DAILY [facility] Last Admin: 11/21/18 13:53 Dose: 180 mg Furosemide (Lasix) 80 mg IV BID [facility] Last Admin: 11/21/18 17:38 Dose: 80 mg Cefepime HCl (Maxipime 1gm) 1 gm in 100 mls @ 100 mls/hr IVPB Q8 [facility]; Protocol Stop: 11/26/18 22:01 Last Admin: 11/22/18 05:23 Dose: 100 mls/hr Vancomycin HCl (Vancomycin 1gm) 1 gm in 250 mls @ 167 mls/hr IVPB Q12H [facility]; Protocol Stop: 11/28/18 20:31 Last Admin: 11/21/18 20:15 Dose: 167 mls/hr Insulin Human Regular (Humulin R Low) 0 units SC ACHS [facility]; Protocol Last Admin: 11/22/18 09:00 Dose: Not Given Metolazone (Zaroxolyn) 5 mg PO DAILY [facility] Last Admin: 11/21/18 09:49 Dose: 5 mg Morphine Sulfate (Morphine) 2 mg IVP Q4H PRN PRN Reason: Pain, severe (8-10) Last Admin: 11/20/18 09:02 Dose: 2 mg Multi-Ingredient Ointment (Hydrophor Oint) 0 gm TOP Q6H [facility] Last Admin: 11/22/18 06:35 Dose: Not Given Oxycodone/Acetaminophen (Percocet 10/325 Mg Tab) 1 tab PO Q4H [facility] Last Admin: 11/22/18 09:02 Dose: 1 tab Pantoprazole Sodium (Protonix Ec Tab) 40 mg PO 0600 [facility] Last Admin: 11/22/18 05:23 Dose: 40 mg Potassium Chloride (K-Dur 20 Meq Er Tab) 20 meq PO BRK [facility] Last Admin: 11/21/18 08:33 Dose: 20 meq Sitagliptin Phosphate (Januvia) 100 mg PO DAILY [facility] Last Admin: 11/21/18 09:48 Dose: 100 mg Spironolactone (Aldactone) 25 mg PO BID [facility] Last Admin: 11/21/18 17:39 Dose: 25 mg - Labs Labs: 11/22/18 05:30 11/22/18 05:30 PT 19.4 SECONDS (9.4-12.5) H 11/13/18 18:19 INR 1.75 11/13/18 18:19 APTT 61.0 Seconds (26.9-38.3) H 11/13/18 18:19 - Constitutional Appears: Non-toxic, No Acute Distress - Head Exam Head Exam: ATRAUMATIC, NORMOCEPHALIC - Extremities Exam Additional comments: LE focused exam: Vasc: Non-palpable DP and PT pulses secondary to edema bilaterally, Temperature gradient warm to cool bilaterally. +2 pitting edema bilaterally, improving. Cap refill < 3 sec to all digits Neuro: Gross and protective sensation diminished Derm: Mild erythema with xerosis noted to bilateral lower extremities from tibi al tuberosity extending distally to digits, small breaks in the skin noted, weeping significantly improved, no malodor appreciated, no purulence, no fluctuance, no tracking, no tunneling, no undermining, no probe to bone Left: hallux ulceration noted dorsally and small ulceration noted to 2nd digit dorsally, both with 100% granular base, measuring about 3 cm X 4 cm, no probe to bone, no drainage, no tracking, minimal coby wound erythema MSK: Diffuse tenderness upon palpation noted to bilateral LE - Neurological Exam Neurological Exam: Alert, Awake - Psychiatric Exam Psychiatric exam: Normal Affect, Normal Mood - Skin Skin Exam: Warm Assessment and Plan - Assessment and Plan (Free Text) Assessment: 58 year old male with b/l venous stasis ulcerations and left hallux stasis ulce ration Plan: Patient seen and evaluated at the bedside with Dr. Kaur Afebrile, WBC 8.2 Wound culture ordered - MRSA and pseudomonas aeruginosa Blood Cultures- no growth Cardiology recommendations were appreciated Infectious Disease recommendations were appreciated No Dressing to the RLE Dressing to the Left foot at the ulceration site: flushed with saline, dressing with Silver Alginate, gauze, ABD and Kerlix Continue management per primary care team C/w PT <Andres Kaur - Last Filed: 11/25/18 07:55> Objective - Vital Signs/Intake and Output Vital Signs (last 24 hours): Temp Pulse Resp BP Pulse Ox 97.6 F 68 20 117/59 L 94 L 11/24/18 17:06 11/24/18 17:06 11/24/18 17:06 11/24/18 17:38 11/24/18 17:06 Intake and Output: 11/25/18 11/25/18 06:59 18:59 Intake Total 1370 Output Total 6800 Balance -5430 - Medications Medications: Current Medications Alprazolam (Xanax) 1 mg PO TID [facility]; Protocol Last Admin: 11/24/18 17:39 Dose: 1 mg Dabigatran (Pradaxa) 150 mg PO BID [facility]; Protocol Last Admin: 11/24/18 17:39 Dose: 150 mg Digoxin (Lanoxin) 0.25 mg PO 1400 [facility] Last Admin: 11/24/18 14:10 Dose: 0.25 mg Diltiazem HCl (Cardizem Cd) 180 mg PO DAILY [facility] Last Admin: 11/24/18 10:14 Dose: 180 mg Furosemide (Lasix) 80 mg IV BID [facility] Last Admin: 11/24/18 17:38 Dose: 80 mg Cefepime HCl (Maxipime 1gm) 1 gm in 100 mls @ 100 mls/hr IVPB Q8 [facility]; Protocol Stop: 11/26/18 22:01 Last Admin: 11/25/18 05:52 Dose: 100 mls/hr Insulin Human Regular (Humulin R Low) 0 units SC ACHS [facility]; Protocol Last Admin: 11/24/18 21:27 Dose: Not Given Metolazone (Zaroxolyn) 5 mg PO DAILY [facility] Last Admin: 11/24/18 10:15 Dose: 5 mg Multi-Ingredient Ointment (Hydrophor Oint) 0 gm TOP Q6H [facility] Last Admin: 11/25/18 07:35 Dose: Not Given Oxycodone/Acetaminophen (Percocet 10/325 Mg Tab) 1 tab PO Q4H [facility] Last Admin: 11/25/18 05:53 Dose: 1 tab Pantoprazole Sodium (Protonix Ec Tab) 40 mg PO 0600 [facility] Last Admin: 11/25/18 05:53 Dose: 40 mg Potassium Chloride (K-Dur 20 Meq Er Tab) 20 meq PO BRK [facility] Last Admin: 11/24/18 10:14 Dose: 20 meq Sitagliptin Phosphate (Januvia) 100 mg PO DAILY [facility] Last Admin: 11/24/18 10:15 Dose: 100 mg Spironolactone (Aldactone) 25 mg PO BID [facility] Last Admin: 11/24/18 17:39 Dose: 25 mg - Labs Labs: 11/25/18 06:20 11/25/18 06:20 PT 19.4 SECONDS (9.4-12.5) H 11/13/18 18:19 INR 1.75 11/13/18 18:19 APTT 61.0 Seconds (26.9-38.3) H 11/13/18 18:19 Attending/Attestation - Attestation I have personally seen and examined this patient.: Yes I have fully participated in the care of the patient.: Yes I have reviewed all pertinent clinical information, including history, physical exam and plan: Yes
[2018-11-22] MEDS: diltiaZEM 180 mg/24 Hours CD Cap PO SCH (09:18)
[2018-11-22] MEDS: Vancomycin 1gm in NS 250ml 1 GM/250 ML BAG IVPB SCH ×2 (09:21→20:47)
[2018-11-22] MEDS: metOLazone 5 MG TAB PO SCH (09:22)
--- NOTE | 2018-11-22 09:35 | CP.PCM.PN ---
Subjective - Date & Time of Evaluation Date of Evaluation: 11/22/18 Time of Evaluation: 09:25 - Subjective Subjective: OOB in chair, NAD, denies chest pain, no SOB Objective - Vital Signs/Intake and Output Vital Signs (last 24 hours): Temp Pulse Resp BP Pulse Ox 98.2 F 73 18 112/67 96 11/22/18 09:12 11/22/18 09:18 11/22/18 09:12 11/22/18 09:19 11/22/18 09:12 Intake and Output: 11/22/18 11/22/18 06:59 18:59 Intake Total 1620 Output Total 6700 Balance -5080 - Medications Medications: Current Medications Alprazolam (Xanax) 1 mg PO TID [facility]; Protocol Last Admin: 11/22/18 09:22 Dose: 1 mg Dabigatran (Pradaxa) 150 mg PO BID [facility]; Protocol Last Admin: 11/22/18 09:21 Dose: 150 mg Digoxin (Lanoxin) 0.25 mg PO 1400 [facility] Last Admin: 11/21/18 13:54 Dose: 0.25 mg Diltiazem HCl (Cardizem Cd) 180 mg PO DAILY [facility] Last Admin: 11/22/18 09:18 Dose: 180 mg Furosemide (Lasix) 80 mg IV BID [facility] Last Admin: 11/22/18 09:19 Dose: 80 mg Cefepime HCl (Maxipime 1gm) 1 gm in 100 mls @ 100 mls/hr IVPB Q8 [facility]; Protocol Stop: 11/26/18 22:01 Last Admin: 11/22/18 05:23 Dose: 100 mls/hr Vancomycin HCl (Vancomycin 1gm) 1 gm in 250 mls @ 167 mls/hr IVPB Q12H [facility]; Protocol Stop: 11/28/18 20:31 Last Admin: 11/22/18 09:21 Dose: 167 mls/hr Insulin Human Regular (Humulin R Low) 0 units SC ACHS [facility]; Protocol Last Admin: 11/22/18 09:00 Dose: Not Given Metolazone (Zaroxolyn) 5 mg PO DAILY [facility] Last Admin: 11/22/18 09:22 Dose: 5 mg Morphine Sulfate (Morphine) 2 mg IVP Q4H PRN PRN Reason: Pain, severe (8-10) Last Admin: 11/20/18 09:02 Dose: 2 mg Multi-Ingredient Ointment (Hydrophor Oint) 0 gm TOP Q6H [facility] Last Admin: 11/22/18 06:35 Dose: Not Given Oxycodone/Acetaminophen (Percocet 10/325 Mg Tab) 1 tab PO Q4H [facility] Last Admin: 11/22/18 09:02 Dose: 1 tab Pantoprazole Sodium (Protonix Ec Tab) 40 mg PO 0600 [facility] Last Admin: 11/22/18 05:23 Dose: 40 mg Potassium Chloride (K-Dur 20 Meq Er Tab) 20 meq PO BRK [facility] Last Admin: 11/22/18 08:19 Dose: 20 meq Sitagliptin Phosphate (Januvia) 100 mg PO DAILY [facility] Last Admin: 11/22/18 09:18 Dose: 100 mg Spironolactone (Aldactone) 25 mg PO BID [facility] Last Admin: 11/22/18 09:18 Dose: 25 mg - Labs Labs: 11/22/18 05:30 11/22/18 05:30 PT 19.4 SECONDS (9.4-12.5) H 11/13/18 18:19 INR 1.75 11/13/18 18:19 APTT 61.0 Seconds (26.9-38.3) H 11/13/18 18:19 - Respiratory Exam Respiratory Exam: Clear to Ausculation Bilateral, NORMAL BREATHING PATTERN - Cardiovascular Exam Cardiovascular Exam: REGULAR RHYTHM - GI/Abdominal Exam GI & Abdominal Exam: Soft, Normal Bowel Sounds - Extremities Exam Extremities Exam: Pedal Edema - Neurological Exam Neurological Exam: Alert, Awake Assessment and Plan (1) Leg ulcer Status: Chronic (2) Atrial fibrillation Status: Chronic (3) CHF (congestive heart failure) Status: Chronic (4) Cellulitis Status: Acute (5) CHF (congestive heart failure) Status: Chronic (6) COPD (chronic obstructive pulmonary disease) Status: Chronic (7) Diabetes Status: Chronic (8) Obstructive sleep apnea Status: Chronic - Assessment and Plan (Free Text) Plan: continue wound care/IV Abx
--- NOTE | 2018-11-22 12:21 | CP.PCM.PN ---
Subjective - Date & Time of Evaluation Date of Evaluation: 11/22/18 Time of Evaluation: 10:15 - Subjective Subjective: Legs feel better as per patient, no fevers, no diarrhea, no nausea. Objective - Vital Signs/Intake and Output Vital Signs (last 24 hours): Temp Pulse Resp BP Pulse Ox 98.2 F 73 18 112/67 96 11/22/18 09:12 11/22/18 09:18 11/22/18 09:12 11/22/18 09:19 11/22/18 09:12 Intake and Output: 11/22/18 11/22/18 06:59 18:59 Intake Total 1620 Output Total 6700 Balance -5080 - Medications Medications: Current Medications Alprazolam (Xanax) 1 mg PO TID [facility]; Protocol Last Admin: 11/22/18 09:22 Dose: 1 mg Dabigatran (Pradaxa) 150 mg PO BID [facility]; Protocol Last Admin: 11/22/18 09:21 Dose: 150 mg Digoxin (Lanoxin) 0.25 mg PO 1400 [facility] Last Admin: 11/21/18 13:54 Dose: 0.25 mg Diltiazem HCl (Cardizem Cd) 180 mg PO DAILY [facility] Last Admin: 11/22/18 09:18 Dose: 180 mg Furosemide (Lasix) 80 mg IV BID [facility] Last Admin: 11/22/18 09:19 Dose: 80 mg Cefepime HCl (Maxipime 1gm) 1 gm in 100 mls @ 100 mls/hr IVPB Q8 [facility]; Protocol Stop: 11/26/18 22:01 Last Admin: 11/22/18 05:23 Dose: 100 mls/hr Vancomycin HCl (Vancomycin 1gm) 1 gm in 250 mls @ 167 mls/hr IVPB Q12H [facility]; Protocol Stop: 11/28/18 20:31 Last Admin: 11/22/18 09:21 Dose: 167 mls/hr Insulin Human Regular (Humulin R Low) 0 units SC ACHS [facility]; Protocol Last Admin: 11/22/18 09:00 Dose: Not Given Metolazone (Zaroxolyn) 5 mg PO DAILY [facility] Last Admin: 11/22/18 09:22 Dose: 5 mg Morphine Sulfate (Morphine) 2 mg IVP Q4H PRN PRN Reason: Pain, severe (8-10) Last Admin: 11/20/18 09:02 Dose: 2 mg Multi-Ingredient Ointment (Hydrophor Oint) 0 gm TOP Q6H [facility] Last Admin: 11/22/18 06:35 Dose: Not Given Oxycodone/Acetaminophen (Percocet 10/325 Mg Tab) 1 tab PO Q4H [facility] Last Admin: 11/22/18 09:02 Dose: 1 tab Pantoprazole Sodium (Protonix Ec Tab) 40 mg PO 0600 [facility] Last Admin: 11/22/18 05:23 Dose: 40 mg Potassium Chloride (K-Dur 20 Meq Er Tab) 20 meq PO BRK [facility] Last Admin: 11/22/18 08:19 Dose: 20 meq Sitagliptin Phosphate (Januvia) 100 mg PO DAILY [facility] Last Admin: 11/22/18 09:18 Dose: 100 mg Spironolactone (Aldactone) 25 mg PO BID [facility] Last Admin: 11/22/18 09:18 Dose: 25 mg - Labs Labs: 11/22/18 05:30 11/22/18 05:30 PT 19.4 SECONDS (9.4-12.5) H 11/13/18 18:19 INR 1.75 11/13/18 18:19 APTT 61.0 Seconds (26.9-38.3) H 11/13/18 18:19 - Constitutional Appears: Chronically Ill - Head Exam Head Exam: NORMAL INSPECTION - Respiratory Exam Respiratory Exam: Decreased Breath Sounds - Cardiovascular Exam Cardiovascular Exam: +S1, +S2 - GI/Abdominal Exam GI & Abdominal Exam: Soft. absent: Tenderness - Extremities Exam Additional comments: both legs with dressings in place Assessment and Plan - Assessment and Plan (Free Text) Plan: Assessment consider bilateral lower extremity skin and skin structure infection with open wounds in this patient with chronic venous stasis, growing MRSA and Pseudomonas chronic CHF history of severe sepsis with acute on chronic renal failure due to bilateral lower extremity cellulitis in this patient with chronic venous stasis and lymphedema and history of lower extremity cellulitis, slowly improving - grew Acinetobacter, MRSA and Stenotrophomonas chronic lower extremity edema CAD HTN atrial fibrillation DM JOSELINE morbid obesity with BMI 44 Plan continue Vancomycin and Cefepime day 3 follow up further plans of Podiatry awaiting MRI to rule out osteomyelitis will continue to monitor clinically
[2018-11-22] MEDS: Digoxin 250 mcg (0.25 mg) Tab PO SCH (13:33)
[2018-11-23] MEDS: Petrolatum-Mineral Oil Oint (100gm) TOP SCH ×2 (01:10→14:09)
[2018-11-23] MEDS: Oxycodone/Acetaminophen 10/325 mg Tab PO SCH ×6 (02:00→21:26)
[2018-11-23] MEDS: Cefepime 1gm in NS 100ml 1 GM/100 ML BAG IVPB SCH ×3 (05:22→21:26)
[2018-11-23] MEDS: Pantoprazole 40 mg EC Tab PO SCH (05:22)
--- NOTE | 2018-11-23 07:20 | CP.PCM.PN ---
Subjective - Date & Time of Evaluation Date of Evaluation: 11/23/18 Time of Evaluation: 06:45 - Subjective Subjective: Lying in bed, awake, no distress Reason for consultation and follow up: Cardiac follow up, history of chronic atrial fibrillation, hypertension, COPD, hyperlipidemia, admitted for leg cellulitis Seen and examined by me and Dr. Rogers Objective - Vital Signs/Intake and Output Vital Signs (last 24 hours): Temp Pulse Resp BP Pulse Ox 98.2 F 83 18 117/58 L 96 11/22/18 09:12 11/23/18 06:00 11/22/18 09:12 11/22/18 17:59 11/22/18 09:12 Intake and Output: 11/23/18 11/23/18 06:59 18:59 Intake Total 810 Output Total 2500 Balance -1690 - Medications Medications: Current Medications Alprazolam (Xanax) 1 mg PO TID [facility]; Protocol Last Admin: 11/22/18 18:01 Dose: 1 mg Dabigatran (Pradaxa) 150 mg PO BID [facility]; Protocol Last Admin: 11/22/18 17:59 Dose: 150 mg Digoxin (Lanoxin) 0.25 mg PO 1400 [facility] Last Admin: 11/22/18 13:33 Dose: 0.25 mg Diltiazem HCl (Cardizem Cd) 180 mg PO DAILY [facility] Last Admin: 11/22/18 09:18 Dose: 180 mg Furosemide (Lasix) 80 mg IV BID [facility] Last Admin: 11/22/18 17:59 Dose: 80 mg Cefepime HCl (Maxipime 1gm) 1 gm in 100 mls @ 100 mls/hr IVPB Q8 [facility]; Protocol Stop: 11/26/18 22:01 Last Admin: 11/23/18 05:22 Dose: 100 mls/hr Vancomycin HCl (Vancomycin 1gm) 1 gm in 250 mls @ 167 mls/hr IVPB Q12H [facility]; Protocol Stop: 11/28/18 20:31 Last Admin: 11/22/18 20:47 Dose: 167 mls/hr Insulin Human Regular (Humulin R Low) 0 units SC ACHS [facility]; Protocol Last Admin: 11/22/18 21:46 Dose: Not Given Metolazone (Zaroxolyn) 5 mg PO DAILY [facility] Last Admin: 11/22/18 09:22 Dose: 5 mg Morphine Sulfate (Morphine) 2 mg IVP Q4H PRN PRN Reason: Pain, severe (8-10) Last Admin: 11/20/18 09:02 Dose: 2 mg Multi-Ingredient Ointment (Hydrophor Oint) 0 gm TOP Q6H [facility] Last Admin: 11/23/18 01:10 Dose: Not Given Oxycodone/Acetaminophen (Percocet 10/325 Mg Tab) 1 tab PO Q4H [facility] Last Admin: 11/23/18 05:22 Dose: 1 tab Pantoprazole Sodium (Protonix Ec Tab) 40 mg PO 0600 [facility] Last Admin: 11/23/18 05:22 Dose: 40 mg Potassium Chloride (K-Dur 20 Meq Er Tab) 20 meq PO BRK [facility] Last Admin: 11/22/18 08:19 Dose: 20 meq Sitagliptin Phosphate (Januvia) 100 mg PO DAILY [facility] Last Admin: 11/22/18 09:18 Dose: 100 mg Spironolactone (Aldactone) 25 mg PO BID [facility] Last Admin: 11/22/18 17:59 Dose: 25 mg - Labs Labs: 11/22/18 05:30 11/22/18 05:30 PT 19.4 SECONDS (9.4-12.5) H 11/13/18 18:19 INR 1.75 11/13/18 18:19 APTT 61.0 Seconds (26.9-38.3) H 11/13/18 18:19 - Constitutional Appears: Non-toxic, No Acute Distress - Head Exam Head Exam: NORMAL INSPECTION, NORMOCEPHALIC - Eye Exam Eye Exam: Normal appearance Pupil Exam: NORMAL ACCOMODATION - ENT Exam ENT Exam: Mucous Membranes Moist, Normal Exam - Neck Exam Neck Exam: Full ROM, Normal Inspection - Respiratory Exam Respiratory Exam: Decreased Breath Sounds, Clear to Ausculation Bilateral, NORMAL BREATHING PATTERN - Cardiovascular Exam Cardiovascular Exam: Irregular Rhythm, +S1, +S2 - GI/Abdominal Exam GI & Abdominal Exam: Soft, Normal Bowel Sounds - Extremities Exam Additional comments: left foot dressing bilateral leg edema, flaky dry skin - Neurological Exam Neurological Exam: Alert, Awake, Oriented x3 - Psychiatric Exam Psychiatric exam: Normal Affect, Normal Mood - Skin Skin Exam: Dry, Normal Color, Warm Assessment and Plan - Assessment and Plan (Free Text) Assessment: A 58 year old male who came in to the ER due to leg cellulitis and worsening leg edema. He was on Lasix but stopped it on his own as he claimed that Lasix made him feel shaky. History of congestive heart failure, ,hypertension, hyperlipidemia, chronic atrial fibrillation, chronic leg ulcers, chronic venous insuficiency,tremors, COPD, morbidly obese,sleep apnea, diabetes, anxiety, renal insufficiency at one point requiring hemodialysis (11/2016). Cardiac cath on 05/12/2014 showed non-obstructive coronary artery disease. Echo done on 04/23/2018 showed LVEF within normal limits, trace MR and TR, severe pulmonary hypertension,RVSP 71mmHg. MUGA scan done on 12/18/2016 and showed LVEF 64%. Chest X ray showed mild to moderate cardiomegaly. EKG showed atrial fibrillation. Severe leg edema,chronic venous insufficiency, non compliant with taking Lasix at home. Podiatry on consult. Repeat echo showed mild to moderate pulmonary hypertension, improved compared to previous Echo. LVEF 45-50%, right ventricle is severely dilated, systolic function of RV is severely reduced, mild MR, moderate tricuspid regurgitation RVSP 51 mmHg. Leg edema improved. Aggresive diurese. Wound left leg culture positive for MRSA, pseudomonas aeroginosa. On IV antibiotics per ID. Cardiac status stable. Denies shortness of breath. Awaiting foot MRI to rule out osteomyelitis Plan: Cardiac status stable Diuresing well Leg edema better compared to initial presentation Wound left leg culture positive for MRSA, pseudomonas aeroginosa. Awaiting MRI of foot to rule out osteomyelitis On IV antibiotics per ID Denies shortness of breath Heart rate controlled, atrial fibrillation Blood pressure controlled On Pradaxa 150 mg BID, Digoxin 0.25 mg daily,Cardizem 180 mg daily, Lasix 80 mg BID, Zaroxylyn 5 mg daily, Aldactone 25 mg BID, K-dur 20 meq daily Continue current management Elevate legs Lifestyle modifications Weight reduction Will follow up Plan and treatment discussed with Dr. Rogers
[2018-11-23] MEDS: Insulin Reg-LOW-Coverage SC SCH ×4 (08:50→21:27)
[2018-11-23] MEDS: diltiaZEM 180 mg/24 Hours CD Cap PO SCH (10:06)
[2018-11-23] MEDS: Potassium Chloride 20 mEq ER Tab PO SCH (10:07)
[2018-11-23] MEDS: metOLazone 5 MG TAB PO SCH (10:08)
[2018-11-23] MEDS: Vancomycin 1gm in NS 250ml 1 GM/250 ML BAG IVPB SCH ×2 (10:08→20:45)
--- NOTE | 2018-11-23 10:55 | CP.PCM.PN ---
Subjective - Date & Time of Evaluation Date of Evaluation: 11/23/18 Time of Evaluation: 07:40 - Subjective Subjective: No increased pain in the legs, no fevers, not in distress. Objective - Vital Signs/Intake and Output Vital Signs (last 24 hours): Temp Pulse Resp BP Pulse Ox 98.2 F 73 18 112/67 96 11/22/18 09:12 11/22/18 09:18 11/22/18 09:12 11/22/18 09:19 11/22/18 09:12 Intake and Output: 11/22/18 11/22/18 06:59 18:59 Intake Total 1620 Output Total 6700 Balance -5080 - Medications Medications: Current Medications Alprazolam (Xanax) 1 mg PO TID [facility]; Protocol Last Admin: 11/22/18 09:22 Dose: 1 mg Dabigatran (Pradaxa) 150 mg PO BID [facility]; Protocol Last Admin: 11/22/18 09:21 Dose: 150 mg Digoxin (Lanoxin) 0.25 mg PO 1400 [facility] Last Admin: 11/21/18 13:54 Dose: 0.25 mg Diltiazem HCl (Cardizem Cd) 180 mg PO DAILY [facility] Last Admin: 11/22/18 09:18 Dose: 180 mg Furosemide (Lasix) 80 mg IV BID [facility] Last Admin: 11/22/18 09:19 Dose: 80 mg Cefepime HCl (Maxipime 1gm) 1 gm in 100 mls @ 100 mls/hr IVPB Q8 [facility]; Protocol Stop: 11/26/18 22:01 Last Admin: 11/22/18 05:23 Dose: 100 mls/hr Vancomycin HCl (Vancomycin 1gm) 1 gm in 250 mls @ 167 mls/hr IVPB Q12H [facility]; Protocol Stop: 11/28/18 20:31 Last Admin: 11/22/18 09:21 Dose: 167 mls/hr Insulin Human Regular (Humulin R Low) 0 units SC ACHS [facility]; Protocol Last Admin: 11/22/18 11:41 Dose: Not Given Metolazone (Zaroxolyn) 5 mg PO DAILY [facility] Last Admin: 11/22/18 09:22 Dose: 5 mg Morphine Sulfate (Morphine) 2 mg IVP Q4H PRN PRN Reason: Pain, severe (8-10) Last Admin: 11/20/18 09:02 Dose: 2 mg Multi-Ingredient Ointment (Hydrophor Oint) 0 gm TOP Q6H [facility] Last Admin: 11/22/18 06:35 Dose: Not Given Oxycodone/Acetaminophen (Percocet 10/325 Mg Tab) 1 tab PO Q4H [facility] Last Admin: 11/22/18 09:02 Dose: 1 tab Pantoprazole Sodium (Protonix Ec Tab) 40 mg PO 0600 [facility] Last Admin: 11/22/18 05:23 Dose: 40 mg Potassium Chloride (K-Dur 20 Meq Er Tab) 20 meq PO BRK [facility] Last Admin: 11/22/18 08:19 Dose: 20 meq Sitagliptin Phosphate (Januvia) 100 mg PO DAILY [facility] Last Admin: 11/22/18 09:18 Dose: 100 mg Spironolactone (Aldactone) 25 mg PO BID [facility] Last Admin: 11/22/18 09:18 Dose: 25 mg - Labs Labs: 11/22/18 05:30 11/22/18 05:30 PT 19.4 SECONDS (9.4-12.5) H 11/13/18 18:19 INR 1.75 11/13/18 18:19 APTT 61.0 Seconds (26.9-38.3) H 11/13/18 18:19 - Constitutional Appears: Chronically Ill - Head Exam Head Exam: NORMAL INSPECTION - Respiratory Exam Respiratory Exam: Decreased Breath Sounds - Cardiovascular Exam Cardiovascular Exam: +S1, +S2 - GI/Abdominal Exam GI & Abdominal Exam: Soft. absent: Tenderness - Extremities Exam Additional comments: both legs with dressings in place Assessment and Plan - Assessment and Plan (Free Text) Plan: Assessment consider bilateral lower extremity skin and skin structure infection with open wounds in this patient with chronic venous stasis, growing MRSA and Pseudomonas chronic CHF history of severe sepsis with acute on chronic renal failure due to bilateral lower extremity cellulitis in this patient with chronic venous stasis and lymphedema and history of lower extremity cellulitis, slowly improving - grew Acinetobacter, MRSA and Stenotrophomonas chronic lower extremity edema CAD HTN atrial fibrillation DM JOSELINE morbid obesity with BMI 44 Plan continue Vancomycin and Cefepime day 4 follow up further plans of Podiatry awaiting MRI to rule out osteomyelitis will continue to monitor clinically
--- NOTE | 2018-11-23 12:20 | CP.PCM.PN ---
Subjective - Date & Time of Evaluation Date of Evaluation: 11/23/18 Time of Evaluation: 11:45 - Subjective Subjective: OOB, NAD, denies chest pain, no SOB Objective - Vital Signs/Intake and Output Vital Signs (last 24 hours): Temp Pulse Resp BP Pulse Ox 97.9 F 75 20 117/87 94 L 11/23/18 08:33 11/23/18 10:06 11/23/18 08:33 11/23/18 10:07 11/23/18 08:33 Intake and Output: 11/23/18 11/23/18 06:59 18:59 Intake Total 810 Output Total 2500 Balance -1690 - Medications Medications: Current Medications Alprazolam (Xanax) 1 mg PO TID [facility]; Protocol Last Admin: 11/23/18 10:08 Dose: 1 mg Dabigatran (Pradaxa) 150 mg PO BID [facility]; Protocol Last Admin: 11/23/18 10:07 Dose: 150 mg Digoxin (Lanoxin) 0.25 mg PO 1400 [facility] Last Admin: 11/22/18 13:33 Dose: 0.25 mg Diltiazem HCl (Cardizem Cd) 180 mg PO DAILY [facility] Last Admin: 11/23/18 10:06 Dose: 180 mg Furosemide (Lasix) 80 mg IV BID [facility] Last Admin: 11/23/18 10:07 Dose: 80 mg Cefepime HCl (Maxipime 1gm) 1 gm in 100 mls @ 100 mls/hr IVPB Q8 [facility]; Protocol Stop: 11/26/18 22:01 Last Admin: 11/23/18 05:22 Dose: 100 mls/hr Vancomycin HCl (Vancomycin 1gm) 1 gm in 250 mls @ 167 mls/hr IVPB Q12H [facility]; Protocol Stop: 11/28/18 20:31 Last Admin: 11/23/18 10:08 Dose: 167 mls/hr Insulin Human Regular (Humulin R Low) 0 units SC ACHS [facility]; Protocol Last Admin: 11/23/18 11:28 Dose: Not Given Metolazone (Zaroxolyn) 5 mg PO DAILY [facility] Last Admin: 11/23/18 10:08 Dose: 5 mg Morphine Sulfate (Morphine) 2 mg IVP Q4H PRN PRN Reason: Pain, severe (8-10) Last Admin: 11/20/18 09:02 Dose: 2 mg Multi-Ingredient Ointment (Hydrophor Oint) 0 gm TOP Q6H [facility] Last Admin: 11/23/18 01:10 Dose: Not Given Oxycodone/Acetaminophen (Percocet 10/325 Mg Tab) 1 tab PO Q4H [facility] Last Admin: 11/23/18 08:56 Dose: 1 tab Pantoprazole Sodium (Protonix Ec Tab) 40 mg PO 0600 [facility] Last Admin: 11/23/18 05:22 Dose: 40 mg Potassium Chloride (K-Dur 20 Meq Er Tab) 20 meq PO BRK [facility] Last Admin: 11/23/18 10:07 Dose: 20 meq Sitagliptin Phosphate (Januvia) 100 mg PO DAILY [facility] Last Admin: 11/23/18 10:07 Dose: 100 mg Spironolactone (Aldactone) 25 mg PO BID [facility] Last Admin: 11/23/18 10:06 Dose: 25 mg - Labs Labs: 11/22/18 05:30 11/22/18 05:30 PT 19.4 SECONDS (9.4-12.5) H 11/13/18 18:19 INR 1.75 11/13/18 18:19 APTT 61.0 Seconds (26.9-38.3) H 11/13/18 18:19 - Respiratory Exam Respiratory Exam: Clear to Ausculation Bilateral, NORMAL BREATHING PATTERN - Cardiovascular Exam Cardiovascular Exam: REGULAR RHYTHM - GI/Abdominal Exam GI & Abdominal Exam: Soft, Normal Bowel Sounds - Extremities Exam Extremities Exam: Pedal Edema - Neurological Exam Neurological Exam: Alert, Awake Assessment and Plan (1) Leg ulcer Status: Chronic (2) Atrial fibrillation Status: Chronic (3) CHF (congestive heart failure) Status: Chronic (4) Cellulitis Status: Acute (5) CHF (congestive heart failure) Status: Chronic (6) COPD (chronic obstructive pulmonary disease) Status: Chronic (7) Diabetes Status: Chronic (8) Obstructive sleep apnea Status: Chronic - Assessment and Plan (Free Text) Plan: results bone bx pending, continue IV Abx/wound care
[2018-11-23] MEDS: Digoxin 250 mcg (0.25 mg) Tab PO SCH (14:11)
[2018-11-24] MEDS: Petrolatum-Mineral Oil Oint (100gm) TOP SCH ×2 (02:38→12:19)
[2018-11-24] MEDS: Oxycodone/Acetaminophen 10/325 mg Tab PO SCH ×6 (02:39→21:32)
[2018-11-24] MEDS: Cefepime 1gm in NS 100ml 1 GM/100 ML BAG IVPB SCH ×3 (05:48→21:32)
[2018-11-24] MEDS: Pantoprazole 40 mg EC Tab PO SCH (05:49)
--- NOTE | 2018-11-24 07:41 | CP.PCM.PN ---
Subjective - Date & Time of Evaluation Date of Evaluation: 11/24/18 Time of Evaluation: 06:15 - Subjective Subjective: Lying in bed, awake, no distress Reason for consultation and follow up: Cardiac follow up, history of chronic atrial fibrillation, hypertension, COPD, hyperlipidemia, admitted for leg cellulitis Seen and examined by me and Dr. Vargas Objective - Vital Signs/Intake and Output Vital Signs (last 24 hours): Temp Pulse Resp BP Pulse Ox 98 F 74 18 113/65 95 11/23/18 16:00 11/24/18 06:00 11/23/18 16:00 11/23/18 17:30 11/23/18 16:00 Intake and Output: 11/24/18 11/24/18 06:59 18:59 Intake Total 1800 Output Total 4100 Balance -2300 - Medications Medications: Current Medications Alprazolam (Xanax) 1 mg PO TID [facility]; Protocol Last Admin: 11/23/18 17:32 Dose: 1 mg Dabigatran (Pradaxa) 150 mg PO BID [facility]; Protocol Last Admin: 11/23/18 17:32 Dose: 150 mg Digoxin (Lanoxin) 0.25 mg PO 1400 [facility] Last Admin: 11/23/18 14:11 Dose: 0.25 mg Diltiazem HCl (Cardizem Cd) 180 mg PO DAILY [facility] Last Admin: 11/23/18 10:06 Dose: 180 mg Furosemide (Lasix) 80 mg IV BID [facility] Last Admin: 11/23/18 17:30 Dose: 80 mg Cefepime HCl (Maxipime 1gm) 1 gm in 100 mls @ 100 mls/hr IVPB Q8 [facility]; Protocol Stop: 11/26/18 22:01 Last Admin: 11/24/18 05:48 Dose: 100 mls/hr Vancomycin HCl (Vancomycin 1gm) 1 gm in 250 mls @ 167 mls/hr IVPB Q12H [facility]; Protocol Stop: 11/28/18 20:31 Last Admin: 11/23/18 20:45 Dose: 167 mls/hr Insulin Human Regular (Humulin R Low) 0 units SC ACHS [facility]; Protocol Last Admin: 11/23/18 21:27 Dose: Not Given Metolazone (Zaroxolyn) 5 mg PO DAILY [facility] Last Admin: 11/23/18 10:08 Dose: 5 mg Morphine Sulfate (Morphine) 2 mg IVP Q4H PRN PRN Reason: Pain, severe (8-10) Last Admin: 11/20/18 09:02 Dose: 2 mg Multi-Ingredient Ointment (Hydrophor Oint) 0 gm TOP Q6H [facility] Last Admin: 11/24/18 02:38 Dose: Not Given Oxycodone/Acetaminophen (Percocet 10/325 Mg Tab) 1 tab PO Q4H [facility] Last Admin: 11/24/18 05:52 Dose: 1 tab Pantoprazole Sodium (Protonix Ec Tab) 40 mg PO 0600 [facility] Last Admin: 11/24/18 05:49 Dose: 40 mg Potassium Chloride (K-Dur 20 Meq Er Tab) 20 meq PO BRK [facility] Last Admin: 11/23/18 10:07 Dose: 20 meq Sitagliptin Phosphate (Januvia) 100 mg PO DAILY [facility] Last Admin: 11/23/18 10:07 Dose: 100 mg Spironolactone (Aldactone) 25 mg PO BID [facility] Last Admin: 11/23/18 17:30 Dose: 25 mg - Labs Labs: 11/22/18 05:30 11/22/18 05:30 PT 19.4 SECONDS (9.4-12.5) H 11/13/18 18:19 INR 1.75 11/13/18 18:19 APTT 61.0 Seconds (26.9-38.3) H 11/13/18 18:19 Assessment and Plan - Assessment and Plan (Free Text) Assessment: A 58 year old male who came in to the ER due to leg cellulitis and worsening leg edema. He was on Lasix but stopped it on his own as he claimed that Lasix made him feel shaky. History of congestive heart failure, ,hypertension, hyperlipidemia, chronic atrial fibrillation, chronic leg ulcers, chronic venous insuficiency,tremors, COPD, morbidly obese,sleep apnea, diabetes, anxiety, renal insufficiency at one point requiring hemodialysis (11/2016). Cardiac cath on 05/12/2014 showed non-obstructive coronary artery disease. Echo done on 04/23/2018 showed LVEF within normal limits, trace MR and TR, severe pulmonary hypertension,RVSP 71mmHg. MUGA scan done on 12/18/2016 and showed LVEF 64%. Chest X ray showed mild to moderate cardiomegaly. EKG showed atrial fibrillation. Severe leg edema,chronic venous insufficiency, non compliant with taking Lasix at home. Podiatry on consult. Repeat echo showed mild to moderate pulmonary hypertension, improved compared to previous Echo. LVEF 45-50%, right ventricle is severely dilated, systolic function of RV is severely reduced, mild MR, moderate tricuspid regurgitation RVSP 51 mmHg. Leg edema improved. Continue to diurese. Wound left leg culture positive for MRSA, pseudomonas aeroginosa. On IV antibiotics per ID. Cardiac status stable. Denies shortness of breath. Awaiting result of foot MRI to rule out osteomyelitis. Plan: On contact isolation Wound left leg culture positive for MRSA, pseudomonas aeroginosa. Awaiting result of MRI of foot to rule out osteomyelitis On IV antibiotics per ID Denies shortness of breath Heart rate controlled, atrial fibrillation Blood pressure controlled Cardiac status stable On Pradaxa 150 mg BID, Digoxin 0.25 mg daily,Cardizem 180 mg daily, Lasix 80 mg BID, Zaroxylyn 5 mg daily, Aldactone 25 mg BID, K-dur 20 meq daily Continue current management Continue to diurese,edema on legs improved Lifestyle modifications Weight reduction Will follow up Plan and treatment discussed with Dr. Vargas
[2018-11-24 08:13] VITALS: RESP 20
[2018-11-24] MEDS: Insulin Reg-LOW-Coverage SC SCH ×4 (08:16→21:27)
[2018-11-24] MEDS: Potassium Chloride 20 mEq ER Tab PO SCH (10:14)
[2018-11-24] MEDS: diltiaZEM 180 mg/24 Hours CD Cap PO SCH (10:14)
[2018-11-24] MEDS: metOLazone 5 MG TAB PO SCH (10:15)
[2018-11-24] MEDS: Vancomycin 1gm in NS 250ml 1 GM/250 ML BAG IVPB SCH ×2 (10:19→21:21)
--- NOTE | 2018-11-24 10:46 | MRI ---
Date of service: 11/23/2018 PROCEDURE: MRI of the left foot without contrast HISTORY: r/o OSTEO COMPARISON: TECHNIQUE: MRI of the left foot was performed in multiple planes using multiple pulse sequences. FINDINGS: There is subcutaneous edema over the dorsum of the foot and on the lateral side of the foot consistent with cellulitis or passive edema. There is no evidence of marrow edema to suggest osteomyelitis or fracture. The report concurs with the preliminary [facility] report IMPRESSION: No evidence of osteomyelitis
--- NOTE | 2018-11-24 11:31 | CP.PCM.PN ---
Subjective - Date & Time of Evaluation Date of Evaluation: 11/24/18 Time of Evaluation: 09:15 - Subjective Subjective: OOB in chair, NAD, denies chest pain, no SOB Objective - Vital Signs/Intake and Output Vital Signs (last 24 hours): Temp Pulse Resp BP Pulse Ox 98.2 F 80 20 118/78 97 11/24/18 08:13 11/24/18 10:00 11/24/18 08:13 11/24/18 10:16 11/24/18 08:13 Intake and Output: 11/24/18 11/24/18 06:59 18:59 Intake Total 1800 Output Total 4100 Balance -2300 - Medications Medications: Current Medications Alprazolam (Xanax) 1 mg PO TID [facility]; Protocol Last Admin: 11/24/18 10:18 Dose: 1 mg Dabigatran (Pradaxa) 150 mg PO BID [facility]; Protocol Last Admin: 11/24/18 10:14 Dose: 150 mg Digoxin (Lanoxin) 0.25 mg PO 1400 [facility] Last Admin: 11/23/18 14:11 Dose: 0.25 mg Diltiazem HCl (Cardizem Cd) 180 mg PO DAILY [facility] Last Admin: 11/24/18 10:14 Dose: 180 mg Furosemide (Lasix) 80 mg IV BID [facility] Last Admin: 11/24/18 10:16 Dose: 80 mg Cefepime HCl (Maxipime 1gm) 1 gm in 100 mls @ 100 mls/hr IVPB Q8 [facility]; Protocol Stop: 11/26/18 22:01 Last Admin: 11/24/18 05:48 Dose: 100 mls/hr Vancomycin HCl (Vancomycin 1gm) 1 gm in 250 mls @ 167 mls/hr IVPB Q12H [facility]; Protocol Stop: 11/28/18 20:31 Last Admin: 11/24/18 10:19 Dose: 167 mls/hr Insulin Human Regular (Humulin R Low) 0 units SC ACHS [facility]; Protocol Last Admin: 11/24/18 08:16 Dose: Not Given Metolazone (Zaroxolyn) 5 mg PO DAILY [facility] Last Admin: 11/24/18 10:15 Dose: 5 mg Multi-Ingredient Ointment (Hydrophor Oint) 0 gm TOP Q6H [facility] Last Admin: 11/24/18 02:38 Dose: Not Given Oxycodone/Acetaminophen (Percocet 10/325 Mg Tab) 1 tab PO Q4H [facility] Last Admin: 11/24/18 10:18 Dose: 1 tab Pantoprazole Sodium (Protonix Ec Tab) 40 mg PO 0600 [facility] Last Admin: 11/24/18 05:49 Dose: 40 mg Potassium Chloride (K-Dur 20 Meq Er Tab) 20 meq PO BRK [facility] Last Admin: 11/24/18 10:14 Dose: 20 meq Sitagliptin Phosphate (Januvia) 100 mg PO DAILY [facility] Last Admin: 11/24/18 10:15 Dose: 100 mg Spironolactone (Aldactone) 25 mg PO BID [facility] Last Admin: 11/24/18 10:15 Dose: 25 mg - Labs Labs: 11/22/18 05:30 11/22/18 05:30 PT 19.4 SECONDS (9.4-12.5) H 11/13/18 18:19 INR 1.75 11/13/18 18:19 APTT 61.0 Seconds (26.9-38.3) H 11/13/18 18:19 - Respiratory Exam Respiratory Exam: Clear to Ausculation Bilateral, NORMAL BREATHING PATTERN - Cardiovascular Exam Cardiovascular Exam: REGULAR RHYTHM - GI/Abdominal Exam GI & Abdominal Exam: Soft, Normal Bowel Sounds - Extremities Exam Extremities Exam: Pedal Edema - Neurological Exam Neurological Exam: Alert, Awake Assessment and Plan (1) Leg ulcer Status: Chronic (2) Atrial fibrillation Status: Chronic (3) CHF (congestive heart failure) Status: Chronic (4) Cellulitis Status: Acute (5) CHF (congestive heart failure) Status: Chronic (6) COPD (chronic obstructive pulmonary disease) Status: Chronic (7) Diabetes Status: Chronic (8) Obstructive sleep apnea Status: Chronic - Assessment and Plan (Free Text) Plan: continue wound care/IV Abx, bx pending
--- NOTE | 2018-11-24 13:21 | CP.PCM.PN ---
Subjective - Date & Time of Evaluation Date of Evaluation: 11/24/18 Time of Evaluation: 13:07 - Subjective Subjective: Podiatry progress note for Drs. Kaur/Abdiel 58 y/o M patient seen and evaluated at the bedside for b/l venous stasis edema with left hallux and 2nd toe stasis ulcerations. Patient was awake and alert at the visit time. Patient denies having pain in his lower extremities. Patient denies have any acute overnight events. He states he keeps his legs elevated when in bed or lying down. Patient denies any new complaints and no overnight n/v/f/c. Objective - Vital Signs/Intake and Output Vital Signs (last 24 hours): Temp Pulse Resp BP Pulse Ox 98.2 F 80 20 118/78 97 11/24/18 08:13 11/24/18 10:00 11/24/18 08:13 11/24/18 10:16 11/24/18 08:13 Intake and Output: 11/24/18 11/24/18 06:59 18:59 Intake Total 1800 Output Total 4100 Balance -2300 - Medications Medications: Current Medications Alprazolam (Xanax) 1 mg PO TID [facility]; Protocol Last Admin: 11/24/18 10:18 Dose: 1 mg Dabigatran (Pradaxa) 150 mg PO BID [facility]; Protocol Last Admin: 11/24/18 10:14 Dose: 150 mg Digoxin (Lanoxin) 0.25 mg PO 1400 [facility] Last Admin: 11/23/18 14:11 Dose: 0.25 mg Diltiazem HCl (Cardizem Cd) 180 mg PO DAILY [facility] Last Admin: 11/24/18 10:14 Dose: 180 mg Furosemide (Lasix) 80 mg IV BID [facility] Last Admin: 11/24/18 10:16 Dose: 80 mg Cefepime HCl (Maxipime 1gm) 1 gm in 100 mls @ 100 mls/hr IVPB Q8 [facility]; Protocol Stop: 11/26/18 22:01 Last Admin: 11/24/18 05:48 Dose: 100 mls/hr Vancomycin HCl (Vancomycin 1gm) 1 gm in 250 mls @ 167 mls/hr IVPB Q12H [facility]; Protocol Stop: 11/28/18 20:31 Last Admin: 11/24/18 10:19 Dose: 167 mls/hr Insulin Human Regular (Humulin R Low) 0 units SC ACHS [facility]; Protocol Last Admin: 11/24/18 12:19 Dose: Not Given Metolazone (Zaroxolyn) 5 mg PO DAILY [facility] Last Admin: 11/24/18 10:15 Dose: 5 mg Multi-Ingredient Ointment (Hydrophor Oint) 0 gm TOP Q6H [facility] Last Admin: 11/24/18 12:19 Dose: Not Given Oxycodone/Acetaminophen (Percocet 10/325 Mg Tab) 1 tab PO Q4H [facility] Last Admin: 11/24/18 10:18 Dose: 1 tab Pantoprazole Sodium (Protonix Ec Tab) 40 mg PO 0600 [facility] Last Admin: 11/24/18 05:49 Dose: 40 mg Potassium Chloride (K-Dur 20 Meq Er Tab) 20 meq PO BRK [facility] Last Admin: 11/24/18 10:14 Dose: 20 meq Sitagliptin Phosphate (Januvia) 100 mg PO DAILY [facility] Last Admin: 11/24/18 10:15 Dose: 100 mg Spironolactone (Aldactone) 25 mg PO BID [facility] Last Admin: 11/24/18 10:15 Dose: 25 mg - Labs Labs: 11/22/18 05:30 11/22/18 05:30 PT 19.4 SECONDS (9.4-12.5) H 11/13/18 18:19 INR 1.75 11/13/18 18:19 APTT 61.0 Seconds (26.9-38.3) H 11/13/18 18:19 - Constitutional Appears: Well, Non-toxic, No Acute Distress - Head Exam Head Exam: ATRAUMATIC, NORMOCEPHALIC - Extremities Exam Additional comments: LE focused exam: Vasc: Non-palpable DP and PT pulses secondary to edema bilaterally, Temperature gradient warm to cool bilaterally. +2 pitting edema bilaterally, improving. Cap refill < 3 sec to all digits Neuro: Gross and protective sensation diminished Derm: Right: Mild erythema with xerosis noted to bilateral lower extremities from tibial tuberosity extending distally to digits, small breaks in the skin noted, weeping is minimal now, no malodor appreciated, no purulence, no fluctuance, no tracking, no tunneling, no undermining, no probe to bone Left: hallux ulceration noted dorsally, measuring about 3 cm X 4 cm and small ulceration noted to 2nd digit dorsally, both with 100% granular base, no probe to bone, no drainage, no tracking. MSK: Diffuse tenderness upon palpation noted to bilateral LE - Neurological Exam Neurological Exam: Alert, Awake Assessment and Plan - Assessment and Plan (Free Text) Assessment: 58 y/o M patient seen and evaluated at the bedside for b/l venous stasis ulcerations and left hallux stasis ulceration Plan: Patient seen and evaluated at the bedside Plan discussed with Dr. Meadows Charts, labs and vitals reviewed: Afebrile, absent leukocytosis Wound culture ordered - MRSA and pseudomonas aeruginosa Blood Cultures- No growth Cardiology recommendations were appreciated Infectious Disease recommendations were appreciated No Dressing to the RLE Dressing to the Left foot at the ulceration site: Silver Alginate, gauze, ABD and Kerlix Continue management per primary care team Continue physical therapy. Podiatry will continue to follow up the patient while in house
[2018-11-24] MEDS: Digoxin 250 mcg (0.25 mg) Tab PO SCH (14:10)
[2018-11-24 14:12] VITALS: PULSE 82
[2018-11-25] MEDS: Oxycodone/Acetaminophen 10/325 mg Tab PO SCH ×3 (01:30→09:22)
[2018-11-25] MEDS: Petrolatum-Mineral Oil Oint (100gm) TOP SCH ×2 (01:30→07:35)
--- NOTE | 2018-11-25 03:20 | PN ---
DATE: 11/24/2018 SUBJECTIVE: The patient is seen earlier today in room 369, bed 2. PHYSICAL EXAMINATION: VITAL SIGNS: Temperature is 98, blood pressure is 117/50, respiratory rate is 20, heart rate is 60. HEENT: Unremarkable. NECK: Supple. LUNGS: Decreased breath sounds. HEART: Normal S1 and S2. ABDOMEN: Soft. LABORATORY DATA: Laboratory examination reveals a white count of 8.2. Review of orders revealed the patient is on cefepime. ASSESSMENT AND PLAN: This is a 58-year-old male with bilateral lower extremity skin and soft tissue infection, Pseudomonas but negative MRI. Currently on cefepime, day #5. We will complete a short course of therapy. We will discuss with Podiatry. Erik Alexander MD
[2018-11-25] MEDS: Cefepime 1gm in NS 100ml 1 GM/100 ML BAG IVPB SCH (05:52)
[2018-11-25] MEDS: Pantoprazole 40 mg EC Tab PO SCH (05:53)
[2018-11-25 06:59] LABS: BASO # 0.19 K/mm3 (0.0-2.0); BASO % 2.4 % (0.0-3.0); EOS # 0.4 (0.0-0.7); EOS % 5.3 % (1.5-5.0); HEMOGLOBIN 11.4 g/dL (14.0-18.0); LYMPH # 1.2 (1.2-3.4); LYMPH % 15.4 % (22.0-35.0); MEAN CELL VOLUME 91.1 fl (80.0-105.0); MEAN CORPUSCULAR HEMOGLOBIN 28.2 pg (25.0-35.0); MEAN PLATELET VOLUME 9.1 fl (7.0-11.0); MONO # 0.8 (0.1-0.6); MONO % 9.9 % (1.0-6.0); RBC 4.04 10^6/uL (3.5-6.1); RED CELL DISTRIBUTION WIDTH 17.6 % (11.5-14.5); WHITE BLOOD COUNT 7.9 10^3/uL (4.5-11.0)
[2018-11-25 07:19] LABS: BLOOD UREA NITROGEN 33 mg/dL (7-21); CALCIUM 9.3 mg/dL (8.4-10.5); GFR NON-AFRICAN AMERICAN 56
--- NOTE | 2018-11-25 08:16 | CP.PCM.PN ---
Subjective - Date & Time of Evaluation Date of Evaluation: 11/25/18 Time of Evaluation: 06:40 - Subjective Subjective: Lying in bed, awake, no distress Reason for consultation and follow up: Cardiac follow up, history of chronic atrial fibrillation, hypertension, COPD, hyperlipidemia, admitted for leg cellulitis Seen and examined by me and Dr. Vargas Objective - Vital Signs/Intake and Output Vital Signs (last 24 hours): Temp Pulse Resp BP Pulse Ox 97.6 F 68 20 117/59 L 94 L 11/24/18 17:06 11/24/18 17:06 11/24/18 17:06 11/24/18 17:38 11/24/18 17:06 Intake and Output: 11/25/18 11/25/18 06:59 18:59 Intake Total 1370 Output Total 6800 Balance -5430 - Medications Medications: Current Medications Alprazolam (Xanax) 1 mg PO TID [facility]; Protocol Last Admin: 11/24/18 17:39 Dose: 1 mg Dabigatran (Pradaxa) 150 mg PO BID [facility]; Protocol Last Admin: 11/24/18 17:39 Dose: 150 mg Digoxin (Lanoxin) 0.25 mg PO 1400 [facility] Last Admin: 11/24/18 14:10 Dose: 0.25 mg Diltiazem HCl (Cardizem Cd) 180 mg PO DAILY [facility] Last Admin: 11/24/18 10:14 Dose: 180 mg Furosemide (Lasix) 80 mg IV BID [facility] Last Admin: 11/24/18 17:38 Dose: 80 mg Cefepime HCl (Maxipime 1gm) 1 gm in 100 mls @ 100 mls/hr IVPB Q8 [facility]; Protocol Stop: 11/26/18 22:01 Last Admin: 11/25/18 05:52 Dose: 100 mls/hr Insulin Human Regular (Humulin R Low) 0 units SC ACHS [facility]; Protocol Last Admin: 11/24/18 21:27 Dose: Not Given Metolazone (Zaroxolyn) 5 mg PO DAILY [facility] Last Admin: 11/24/18 10:15 Dose: 5 mg Multi-Ingredient Ointment (Hydrophor Oint) 0 gm TOP Q6H [facility] Last Admin: 11/25/18 07:35 Dose: Not Given Oxycodone/Acetaminophen (Percocet 10/325 Mg Tab) 1 tab PO Q4H [facility] Last Admin: 11/25/18 05:53 Dose: 1 tab Pantoprazole Sodium (Protonix Ec Tab) 40 mg PO 0600 [facility] Last Admin: 11/25/18 05:53 Dose: 40 mg Potassium Chloride (K-Dur 20 Meq Er Tab) 20 meq PO BRK [facility] Last Admin: 11/24/18 10:14 Dose: 20 meq Sitagliptin Phosphate (Januvia) 100 mg PO DAILY [facility] Last Admin: 11/24/18 10:15 Dose: 100 mg Spironolactone (Aldactone) 25 mg PO BID [facility] Last Admin: 11/24/18 17:39 Dose: 25 mg - Labs Labs: 11/25/18 06:20 11/25/18 06:20 PT 19.4 SECONDS (9.4-12.5) H 11/13/18 18:19 INR 1.75 11/13/18 18:19 APTT 61.0 Seconds (26.9-38.3) H 11/13/18 18:19 Assessment and Plan - Assessment and Plan (Free Text) Assessment: A 58 year old male who came in to the ER due to leg cellulitis and worsening leg edema. He was on Lasix but stopped it on his own as he claimed that Lasix made him feel shaky. History of congestive heart failure, ,hypertension, hyperlipidemia, chronic atrial fibrillation, chronic leg ulcers, chronic venous insuficiency,tremors, COPD, morbidly obese,sleep apnea, diabetes, anxiety, renal insufficiency at one point requiring hemodialysis (11/2016). Cardiac cath on 05/12/2014 showed non-obstructive coronary artery disease. Echo done on 04/23/2018 showed LVEF within normal limits, trace MR and TR, severe pulmonary hypertension,RVSP 71mmHg. MUGA scan done on 12/18/2016 and showed LVEF 64%. Chest X ray showed mild to moderate cardiomegaly. EKG showed atrial fibrillation. Severe leg edema,chronic venous insufficiency, non compliant with taking Lasix at home. Podiatry on consult. Repeat echo showed mild to moderate pulmonary hypertension, improved compared to previous Echo. LVEF 45-50%, right ventricle is severely dilated, systolic function of RV is severely reduced, mild MR, moderate tricuspid regurgitation RVSP 51 mmHg. Leg edema improved. Continue to diurese. Wound left leg culture positive for MRSA, pseudomonas aeroginosa. On IV antibiotics per ID. Foot MRI showed no osteomyelitis. Cardiac status stable. Denies shortness of breath. Plan: Foot MRI showed no osteomyelitis. Cardiac status stable. Denies shortness of breath. On contact isolation Wound left leg culture positive for MRSA, pseudomonas aeroginosa. On IV antibiotics per ID Heart rate controlled, atrial fibrillation Blood pressure controlled Discontinued telemetry On Pradaxa 150 mg BID, Digoxin 0.25 mg daily,Cardizem 180 mg daily, Lasix 80 mg BID, Zaroxylyn 5 mg daily, Aldactone 25 mg BID, K-dur 20 meq daily Continue current management Continue to diurese, Leg edema improved Lifestyle modifications Weight reduction Will follow up Plan and treatment discussed with Dr. Vargas
[2018-11-25 08:50] VITALS: BP 100/67; PULSE 79; TEMP 98.4; O2SAT 97
[2018-11-25] MEDS: Insulin Reg-LOW-Coverage SC SCH (08:58)
[2018-11-25] MEDS: Potassium Chloride 20 mEq ER Tab PO SCH (09:21)
[2018-11-25] MEDS: diltiaZEM 180 mg/24 Hours CD Cap PO SCH (09:21)
[2018-11-25] MEDS: metOLazone 5 MG TAB PO SCH (09:21)
--- NOTE | 2018-11-25 11:09 | CP.PCM.PN ---
Subjective - Date & Time of Evaluation Date of Evaluation: 11/25/18 Time of Evaluation: 11:02 - Subjective Subjective: Podiatry progress note for Drs. Kaur/Abdiel 58 y/o M patient seen and evaluated at the bedside for b/l venous stasis edema with left hallux and 2nd toe stasis ulcerations. Patient was awake and alert at the visit time. Patient denies having pain in his lower extremities. Patient denies have any acute overnight events. He states he keeps his legs elevated when in bed or lying down. Patient denies any new complaints and no overnight n/v/f/c. Objective - Vital Signs/Intake and Output Vital Signs (last 24 hours): Temp Pulse Resp BP Pulse Ox 98.4 F 79 20 100/67 97 11/25/18 08:50 11/25/18 08:50 11/25/18 08:50 11/25/18 08:50 11/25/18 08:50 Intake and Output: 11/25/18 11/25/18 06:59 18:59 Intake Total 1370 Output Total 6800 Balance -5430 - Medications Medications: Current Medications Alprazolam (Xanax) 1 mg PO TID [facility]; Protocol Last Admin: 11/25/18 09:21 Dose: 1 mg Dabigatran (Pradaxa) 150 mg PO BID [facility]; Protocol Last Admin: 11/25/18 09:21 Dose: 150 mg Digoxin (Lanoxin) 0.25 mg PO 1400 [facility] Last Admin: 11/24/18 14:10 Dose: 0.25 mg Diltiazem HCl (Cardizem Cd) 180 mg PO DAILY [facility] Last Admin: 11/25/18 09:21 Dose: 180 mg Furosemide (Lasix) 80 mg IV BID [facility] Last Admin: 11/25/18 09:22 Dose: Not Given Cefepime HCl (Maxipime 1gm) 1 gm in 100 mls @ 100 mls/hr IVPB Q8 [facility]; Protocol Stop: 11/26/18 22:01 Last Admin: 11/25/18 05:52 Dose: 100 mls/hr Insulin Human Regular (Humulin R Low) 0 units SC ACHS [facility]; Protocol Last Admin: 11/25/18 08:58 Dose: Not Given Metolazone (Zaroxolyn) 5 mg PO DAILY [facility] Last Admin: 11/25/18 09:21 Dose: 5 mg Multi-Ingredient Ointment (Hydrophor Oint) 0 gm TOP Q6H [facility] Last Admin: 11/25/18 07:35 Dose: Not Given Oxycodone/Acetaminophen (Percocet 10/325 Mg Tab) 1 tab PO Q4H [facility] Last Admin: 11/25/18 09:22 Dose: 1 tab Pantoprazole Sodium (Protonix Ec Tab) 40 mg PO 0600 [facility] Last Admin: 11/25/18 05:53 Dose: 40 mg Potassium Chloride (K-Dur 20 Meq Er Tab) 20 meq PO BRK [facility] Last Admin: 11/25/18 09:21 Dose: 20 meq Sitagliptin Phosphate (Januvia) 100 mg PO DAILY [facility] Last Admin: 11/25/18 09:20 Dose: 100 mg Spironolactone (Aldactone) 25 mg PO BID [facility] Last Admin: 11/25/18 09:21 Dose: 25 mg - Labs Labs: 11/25/18 06:20 11/25/18 06:20 PT 19.4 SECONDS (9.4-12.5) H 11/13/18 18:19 INR 1.75 11/13/18 18:19 APTT 61.0 Seconds (26.9-38.3) H 11/13/18 18:19 - Constitutional Appears: Well, Non-toxic, No Acute Distress - Head Exam Head Exam: ATRAUMATIC, NORMOCEPHALIC - Extremities Exam Additional comments: LE focused exam: Vasc: Non-palpable DP and PT pulses secondary to edema bilaterally, Temperature gradient warm to cool bilaterally. +2 pitting edema bilaterally, improving. Cap refill < 3 sec to all digits Neuro: Gross and protective sensation diminished Derm: Right: Mild erythema with xerosis noted to bilateral lower extremities from tibial tuberosity extending distally to digits, small breaks in the skin noted, weeping is minimal now, no malodor appreciated, no purulence, no fluctuance, no tracking, no tunneling, no undermining, no probe to bone Left: hallux ulceration noted dorsally, measuring about 3 cm X 4 cm and small ulceration noted to 2nd digit dorsally, both with 100% granular base, no probe to bone, no drainage, no tracking. MSK: Diffuse tenderness upon palpation noted to bilateral LE - Neurological Exam Neurological Exam: Alert, Awake, Oriented x3 Assessment and Plan - Assessment and Plan (Free Text) Assessment: 58 y/o M patient seen and evaluated at the bedside for b/l venous stasis ulcerations and left hallux stasis ulceration Plan: Patient seen and evaluated at the bedside Plan discussed with Dr. Meadows Charts, labs and vitals reviewed: Afebrile, absent leukocytosis Wound culture ordered - MRSA and pseudomonas aeruginosa Blood Cultures- No growth Cardiology recommendations: appreciated Infectious Disease recommendations were appreciated No Dressing to the RLE Dressing to the Left foot at the ulceration site: Silver Alginate, gauze, ABD and Kerlix B/L legs dressed with kerlix and Francisco bandage (Venous compression dressing) Patient advised to keep the dressing C/D/I. Continue management per primary care team. Continue physical therapy. Podiatry will continue to follow up the patient while in house. Patient to follow up with Dr. Meadows upon discharge from the hospital.
--- NOTE | 2018-11-25 21:57 | DS ---
HOSPITAL COURSE: The patient is a 58-year-old male admitted to the emergency department on 11/13/2018 with cellulitis of the lower extremities due to infected chronic venous stasis ulcers. The patient received IV Maxipime 1 g every 8 hours as well as IV Lasix with improvement. Wound care was performed by Dr. Meadows. The patient is now medically stable for discharge to home. PHYSICAL EXAMINATION: VITAL SIGNS: Blood pressure 100/67, temperature 98.4, pulse 79, and respiratory rate 14. LUNGS: Clear. HEART: Regular rate and rhythm. ABDOMEN: Soft and nontender. Bowel sounds are normoactive. EXTREMITIES: Show 2 to 3+ brawny edema of the lower extremities to the knees bilaterally with shallow venous stasis ulcers involving both legs with no exudate and no discharge at the present time. NEUROLOGIC: The patient is awake and oriented x3 without focal motor deficits. SKIN: Warm and dry. IMPRESSION: 1. Recurrent cellulitis of the legs secondary to infected chronic venous stasis ulcers. 2. Hypertension, hypertensive cardiovascular disease, and congestive heart failure. 3. Chronic obstructive pulmonary disease. 4. Obstructive sleep apnea. 5. Paroxysmal atrial fibrillation. 6. Nonobstructive coronary artery disease. 7. Type 2 diabetes mellitus with diabetic neuropathy. 8. Morbid obesity. PLAN: The patient will be discharged to home on the following medications; Pradaxa 150 mg twice daily, Protonix 40 mg daily, Percocet 10/325 one tablet every 6 hours, metoprolol 25 mg twice daily, Levemir 80 mg at bedtime, Lasix 40 mg twice daily, digoxin 0.25 mg daily, Cardizem CD 240 mg daily, Januvia 100 mg daily, Zocor 10 mg daily, and Xanax 1 mg three times daily. The patient will be maintained on a consistent carbohydrate diet. Activity is ad libitum. He will be following as an outpatient within the next 1-2 weeks by myself and for wound care with Dr. Meadows. MELCHOR Sousa MD
--- NOTE | 2018-11-25 22:39 | PN ---
DATE: 11/25/2018 SUBJECTIVE: The patient is seen in bed, no acute distress, nontoxic. The patient was seen earlier this morning in room 369, bed 2. PHYSICAL EXAMINATION: VITAL SIGNS: Temperature is 98, blood pressure is 100/60, respiratory rate 16. HEENT: Unremarkable. NECK: Supple. LUNGS: Decreased breath sounds. HEART: Normal S1, S2. ABDOMEN: Soft. LABORATORY DATA: As noted. ASSESSMENT AND PLAN: This is a 58-year-old male with bilateral lower extremity skin and soft tissue infection. Negative MRI. Day #6 of cefepime with short course of antibiotics. Erik Alexander MD
== END 2018-11-25 11:40 | disposition home or self-care (01) | DRG 563 ==
LOC: ED 16:33 → ERH 20:11 → 3RNO 23:20
PROVIDERS: ADMIT Internal Medicine; ATTEND Internal Medicine
DX: L03.115 Cellulitis of right lower limb (principal); I50.33 Acute on chronic diastolic (congestive) heart failure; L97.529 Non-pressure chronic ulcer of other part of left foot with unspecified severity; J44.9 Chronic obstructive pulmonary disease, unspecified; I13.0 Hypertensive heart and chronic kidney disease with heart failure and stage 1 through stage 4 chronic kidney disease, or unspecified chronic kidney disease; I50.82 Biventricular heart failure; E11.22 Type 2 diabetes mellitus with diabetic chronic kidney disease; E11.40 Type 2 diabetes mellitus with diabetic neuropathy, unspecified; E11.51 Type 2 diabetes mellitus with diabetic peripheral angiopathy without gangrene; E11.621 Type 2 diabetes mellitus with foot ulcer; I07.1 Rheumatic tricuspid insufficiency; N18.9 Chronic kidney disease, unspecified; L03.116 Cellulitis of left lower limb; I83.225 Varicose veins of left lower extremity with both ulcer other part of foot and inflammation; I83.009 Varicose veins of unspecified lower extremity with ulcer of unspecified site; E66.9 Obesity, unspecified; I48.91 Unspecified atrial fibrillation; Z68.41 Body mass index [BMI] 40.0-44.9, adult; Z87.891 Personal history of nicotine dependence; G47.33 Obstructive sleep apnea (adult) (pediatric); L03.032 Cellulitis of left toe; E66.01 Morbid (severe) obesity due to excess calories; I27.29 Other secondary pulmonary hypertension; I48.2 Chronic atrial fibrillation; I25.10 Atherosclerotic heart disease of native coronary artery without angina pectoris; E78.00 Pure hypercholesterolemia, unspecified; E78.5 Hyperlipidemia, unspecified; F41.9 Anxiety disorder, unspecified; I48.0 Paroxysmal atrial fibrillation; K44.9 Diaphragmatic hernia without obstruction or gangrene; Z88.1 Allergy status to other antibiotic agents; Z91.14 Patient's other noncompliance with medication regimen; Z91.19 Patient's noncompliance with other medical treatment and regimen